=== PATIENT | male | born 1950 | race Caucasian/White ===

== ENCOUNTER → 2018-02-06 09:35 | Outpatient (CLI) | payer MEDICARE, OTHER, SELFPAY ==
[2018-02-06 12:27] LABS: AST(SGOT) 17 U/L (15-37); Alanine Aminotransfer ALT/SGPT 27 U/L (16-61); Albumin, Serum 3.9 g/dL (3.2-5.0); Alkaline Phosphatase 72 U/L (45-117); Bilirubin, Direct 0.13 mg/dL (0.00-0.30); Cholesterol 253 mg/dL (200); Globulin 3.9 g/dL (2.2-4.2); High Density Lipoprotein 49 mg/dL; Protein, Total 7.8 g/dL (6.4-8.2); Triglycerides 138 mg/dL; Very Low Density Lipoprotein 28 mg/dL (5-40)
== END ==
DX: E78.5 Hyperlipidemia, unspecified (principal)
CPT/HCPCS: 36415; 80061; 80076

== ENCOUNTER → 2018-04-14 16:21 | Outpatient (CLI) | payer MEDICARE, OTHER, SELFPAY ==
--- NOTE | 2018-04-14 | COLBX_PTH ---
PATIENT: DARRIUS العراقي LOC: [facility] U#:[id number] AGE/SX: 74/M ROOM: RE04/14/[address]: Dr. Tano Roca MD : 1950 BED: DIS: SPEC #: [id number] RECD: 04/14/18 11:14 STATUS: KRISTIAN FERRARO #: [id number] BASSEM: 04/14/18 00:[address]: Tano Roca DEPT: SURGICAL PATHOLOGY RECD BY: Ismael Parker ENTERED: 04/20/18 11:14 SP TYPE: COLON BX OTHR DR: MD Brandon Jameson [facility] Tissues: Transverse colon Procedures: Surgery Specimen Level IV HEADER OPERATION: Colonoscopy with biopsy PRE-OP DIAGNOSIS: High risk screening/polyp TISSUE SUBMITTED: Transverse colon polyp biopsy, rule out adenoma MICROSCOPIC DIAGNOSIS Transverse colon polyp, biopsy: Fragments of tubular adenoma. AM:dipti 04/22/18 MICROSCOPIC DESCRIPTION Slides are reviewed. GROSS DESCRIPTION Received in fixative is one container labeled with the patient's name and designated transverse colon biopsy. The specimen consists of multiple irregular fragments of light vega soft tissue that in aggregate measure 0.6 x 0.2 x 0.1 cm. The specimen is totally submitted in one cassette. / SJ:rg 04/17/18 TC:5 CPT: 26602
== END ==
PROVIDERS: PCP Family Medicine; Visit Provider Internal Medicine Gastroenterology
DX: Z12.11 Encounter for screening for malignant neoplasm of colon (principal); K63.5 Polyp of colon
CPT/HCPCS: 88305

== ENCOUNTER → 2018-09-06 09:46 | Outpatient (CLI) | payer MEDICARE, OTHER, SELFPAY ==
--- NOTE | 2018-09-06 09:57 | RAD_ITS ---
STUDY: X-RAY - RIGHT KNEE REASON FOR EXAM: Male, 67 years old. Chronic joint pain, no known injury TECHNIQUE: 4 view(s) of the knee. COMPARISON: None. FINDINGS: Normal visualized distal femur. Normal visualized proximal tibia and fibula. Normal proximal tibiofibular articulation. There is mild joint space narrowing of the medial knee compartment. Normal lateral femorotibial compartment. Normal patellofemoral articulation. The soft tissue structures are unremarkable. RAD/Knee 4 or More Views IMPRESSION: Mild joint space narrowing of the medial knee compartment. Electronically Signed: Blake López MD at 16:56 EDT , Service support ,
--- NOTE | 2018-09-06 09:57 | RAD_ITS ---
STUDY: X-RAY - PELVIS AND BILATERAL HIPS REASON FOR EXAM: Male, 67 years old. Chronic joint pain, no known injury TECHNIQUE: Radiological exam, hip, bilateral, with pelvis when performed; minimum of 5 views COMPARISON: 02/24/2017 FINDINGS: There is a non-specific bowel gas pattern. 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 Normal bilateral iliac wings, sacroiliac joints and visualized sacrum. Normal bilateral superior and inferior pubic rami. Normal pubic symphysis. Normal bilateral ischial tuberosities. Normal visualized right femoral head. Normal right acetabulum. Normal right hip joint. Normal visualized left femoral head. Normal left acetabulum. Normal left hip joint. RAD/Hips B/L min 2 views w/ Pelvis IMPRESSION: Normal x-ray examination of the pelvis and bilateral hips. Electronically Signed: Blake López MD at 22:12 EDT , Service support ,
--- NOTE | 2018-09-06 09:57 | RAD_ITS ---
STUDY: X-RAY - LEFT KNEE REASON FOR EXAM: Male, 67 years old. Chronic pain, no known injury TECHNIQUE: view(s) of the knee. COMPARISON: Prior study of 03/11/2017 FINDINGS: Normal visualized distal femur. Normal visualized proximal tibia and fibula. Normal proximal tibiofibular articulation. There is severe joint space narrowing with reactive sclerosis of the medial tibial plateau. Normal lateral femorotibial compartment. Normal patellofemoral articulation. There are number of small calcifications of the posterior medial knee joint space measuring up to 8 mm in diameter consistent with joint mice. RAD/Knee 4 or More Views IMPRESSION: Degenerative changes of the medial knee compartment. Chondrocalcinosis. Findings are similar to the previous study. Electronically Signed: Blake López MD at 16:51 EDT , Service support ,
--- NOTE | 2018-09-06 09:57 | RAD_ITS ---
STUDY: X-RAY - LUMBAR SPINE REASON FOR EXAM: Male, 67 years old. Chronic pain, no known injury TECHNIQUE: 5 view(s) of the lumbar spine were obtained. COMPARISON: Previous study of 02/24/2017 FINDINGS: Normal lumbar lordosis. There is no substantial scoliosis. There is a normal alignment of the vertebrae. There is mild endplate spondylosis at L4 and L5. There is narrowing of the L3-4 and L4-5 disc spaces. There is no evidence of fracture, spondylolysis, or spondylolisthesis. There are calcified plaques of the abdominal aorta. RAD/L/S Spine Min 4 Views IMPRESSION: Degenerative changes of the spine, as detailed above. Findings are similar to the previous study. Electronically Signed: Blake López MD at 22:11 EDT , Service support ,
[2018-09-06 12:19] LABS: ALB/GLOB Ratio 1.1 RATIO (0.9-2.4); AST(SGOT) 25 U/L (15-37); Alanine Aminotransfer ALT/SGPT 32 U/L (16-61); Alkaline Phosphatase 85 U/L (45-117); Anion Gap 7 (5-15); BUN 17 mg/dL (7-18); BUN/Creat Ratio 17.1 RATIO (10-20); Calcium,Total 9.1 mg/dL (8.5-10.1); Chloride 104 mmol/L (98-107); Cholesterol 250 mg/dL (200); Creatinine, Serum 0.99 mg/dL (0.70-1.30); EST Glomerular Filtration Rate 79 mL/min (>60); Est Glom Filt Rate - Afr Amer 96 mL/min (>60); Globulin 3.7 g/dL (2.2-4.2); Glucose 82 mg/dL (74-106); High Density Lipoprotein 48 mg/dL; Potassium 4.5 mmol/L (3.5-5.1); Protein, Total 7.7 g/dL (6.4-8.2); Sodium Level 141 mmol/L (136-145); Triglycerides 168 mg/dL; Very Low Density Lipoprotein 34 mg/dL (5-40)
== END ==
PROVIDERS: Family Provider Family Medicine; PCP Family Medicine; Referring Provider Family Medicine; Visit Provider Family Medicine
DX: M25.50 Pain in unspecified joint (principal); E78.5 Hyperlipidemia, unspecified
CPT/HCPCS: 36415; 72110; 73521; 73564; 80053; 80061

== ENCOUNTER → 2018-12-20 10:01 | Outpatient (CLI) | payer MEDICARE, OTHER, SELFPAY ==
[2018-12-20 12:23] LABS: PSA,Total - Annual Screen 1.29 ng/mL (0.00-4.00)
== END ==
PROVIDERS: Family Provider Family Medicine; PCP Family Medicine; Referring Provider Radiology Radiation Oncology; Visit Provider Radiology Radiation Oncology
DX: Z12.5 Encounter for screening for malignant neoplasm of prostate (principal); Z85.46 Personal history of malignant neoplasm of prostate
CPT/HCPCS: 36415; 84153; G0103

== ENCOUNTER → 2019-01-01 08:22 | Outpatient (CLI) | payer MEDICARE, OTHER, SELFPAY ==
[2019-01-01 10:38] LABS: AST(SGOT) 23 U/L (15-37); Alanine Aminotransfer ALT/SGPT 27 U/L (16-61); Albumin, Serum 3.8 g/dL (3.2-5.0); Alkaline Phosphatase 74 U/L (45-117); Anion Gap 9 (5-15); BUN 17 mg/dL (7-18); BUN/Creat Ratio 16.7 RATIO (10-20); Calcium,Total 8.9 mg/dL (8.5-10.1); Chloride 108 mmol/L (98-107); Cholesterol 234 mg/dL (200); Creatinine, Serum 1.02 mg/dL (0.70-1.30); EST Glomerular Filtration Rate 77 mL/min (>60); Est Glom Filt Rate - Afr Amer 93 mL/min (>60); Globulin 3.8 g/dL (2.2-4.2); Glucose 89 mg/dL (74-106); High Density Lipoprotein 47 mg/dL; Potassium 4.2 mmol/L (3.5-5.1); Protein, Total 7.6 g/dL (6.4-8.2); Sodium Level 141 mmol/L (136-145); Triglycerides 150 mg/dL; Very Low Density Lipoprotein 30 mg/dL (5-40)
== END ==
PROVIDERS: Family Provider Family Medicine; PCP Family Medicine; Visit Provider Family Medicine
DX: E78.5 Hyperlipidemia, unspecified (principal)
CPT/HCPCS: 36415; 80053; 80061

== ENCOUNTER → 2019-04-30 | Outpatient (CLI) | payer MEDICARE, OTHER, SELFPAY ==
[2019-04-30 10:45] LABS: Cholesterol 222 mg/dL (200); High Density Lipoprotein 51 mg/dL; Triglycerides 129 mg/dL; Very Low Density Lipoprotein 26 mg/dL (5-40)
[2019-05-02 09:01] LABS: AST(SGOT) 27 U/L (15-37); Alanine Aminotransfer ALT/SGPT 29 U/L (16-61); Alkaline Phosphatase 77 U/L (45-117); Bilirubin, Direct 0.13 mg/dL (0.00-0.30); CPK Total, Creatine Kinase 268 U/L (39-308); Ferritin 85 ng/mL (26-388); Globulin 3.4 g/dL (2.2-4.2); Magnesium 2.2 mg/dL (1.6-2.6); Protein, Total 7.4 g/dL (6.4-8.2)
== END | disposition home or self-care (01) ==
LOC: MFPLAB 08:04
PROVIDERS: Family Provider Family Medicine; PCP Family Medicine; Referring Provider Family Medicine; Visit Provider Family Medicine
DX: E78.5 Hyperlipidemia, unspecified (principal); R25.2 Cramp and spasm
CPT/HCPCS: 36415; 80061; 80076; 82550; 82728; 83735

== ENCOUNTER → 2019-10-26 08:09 | Outpatient (CLI) | payer MEDICARE, OTHER, SELFPAY ==
[2019-10-26 10:48] LABS: Cholesterol 236 mg/dL (200); High Density Lipoprotein 46 mg/dL; Triglycerides 184 mg/dL; Very Low Density Lipoprotein 37 mg/dL (5-40)
== END ==
PROVIDERS: Family Provider Family Medicine; PCP Family Medicine; Referring Provider Family Medicine; Visit Provider Family Medicine
DX: E78.5 Hyperlipidemia, unspecified (principal)
CPT/HCPCS: 36415; 80061

== ENCOUNTER → 2019-12-31 07:50 | Outpatient (CLI) | payer MEDICARE, OTHER, SELFPAY ==
[2019-12-31 10:51] LABS: PSA,Total- Diagnostic 1.03 ng/mL (0.0-4.0)
== END ==
PROVIDERS: PCP Family Medicine; Referring Provider Radiology Radiation Oncology; Visit Provider Radiology Radiation Oncology
DX: C61 Malignant neoplasm of prostate (principal)
CPT/HCPCS: 36415; 84153

== ENCOUNTER → 2020-03-04 08:05 | Outpatient (CLI) | payer MEDICARE, OTHER, SELFPAY ==
[2020-03-04 10:20] LABS: ALB/GLOB Ratio 1.2 RATIO (0.9-2.4); AST(SGOT) 22 U/L (15-37); Alanine Aminotransfer ALT/SGPT 27 U/L (16-61); Albumin, Serum 3.8 g/dL (3.2-5.0); Alkaline Phosphatase 77 U/L (45-117); Anion Gap 6 (5-15); BUN 20 mg/dL (7-18); BUN/Creat Ratio 19.2 RATIO (10-20); Calcium,Total 9.1 mg/dL (8.5-10.1); Chloride 106 mmol/L (98-107); Cholesterol 206 mg/dL (200); Creatinine, Serum 1.04 mg/dL (0.70-1.30); EST Glomerular Filtration Rate 75 mL/min (>60); Est Glom Filt Rate - Afr Amer 91 mL/min (>60); Globulin 3.3 g/dL (2.2-4.2); Glucose 88 mg/dL (74-106); High Density Lipoprotein 48 mg/dL; PSA,Total - Annual Screen 0.88 ng/mL (0.00-4.00); Potassium 4.2 mmol/L (3.5-5.1); Protein, Total 7.1 g/dL (6.4-8.2); Sodium Level 140 mmol/L (136-145); Triglycerides 108 mg/dL; Very Low Density Lipoprotein 22 mg/dL (5-40)
== END ==
PROVIDERS: PCP Family Medicine; Referring Provider Family Medicine; Visit Provider Family Medicine
DX: E78.5 Hyperlipidemia, unspecified (principal); Z12.5 Encounter for screening for malignant neoplasm of prostate; R25.2 Cramp and spasm
CPT/HCPCS: 36415; 80053; 80061; 84153; G0103

== ENCOUNTER → 2020-09-01 08:50 | Outpatient (CLI) | payer MEDICARE, OTHER, SELFPAY ==
[2020-09-01 10:02] LABS: Cholesterol 191 mg/dL (200); High Density Lipoprotein 69 mg/dL; Triglycerides 96 mg/dL; Very Low Density Lipoprotein 19 mg/dL (5-40)
== END ==
PROVIDERS: PCP Family Medicine; Visit Provider Family Medicine
DX: E78.5 Hyperlipidemia, unspecified (principal)
CPT/HCPCS: 36415; 80061

== ENCOUNTER → 2021-01-08 10:43 | Outpatient (CLI) | payer MEDICARE, OTHER, SELFPAY ==
[2021-01-08 12:34] LABS: PSA,Total- Diagnostic 0.76 ng/mL (0.0-4.0)
== END ==
LOC: LAB 10:46 → MTLAB 10:46
PROVIDERS: PCP Family Medicine; Referring Provider Radiology Radiation Oncology; Visit Provider Radiology Radiation Oncology
DX: Z85.46 Personal history of malignant neoplasm of prostate (principal)
CPT/HCPCS: 36415; 84153

== ENCOUNTER → 2021-01-22 09:58 | Outpatient (CLI) | payer MEDICARE, OTHER, SELFPAY ==
--- NOTE | 2021-01-22 09:59 | CDU_ITS ---
Reason For Study: carotid stenosis Rt. Velocities/BP Lt. Velocities/BP Prox CCA 104.7/14.7 cm/sec. Prox CCA 75.1/16.8 cm/sec. Mid CCA 86.5/13.4 cm/sec. Mid CCA 67.3/13.5 cm/sec. Dist CCA 76.0/13.4 cm/sec. Dist CCA 70.6/13.5 cm/sec. Prox ICA 48.7/12.4 cm/sec. Prox ICA 69.5/20.1 cm/sec. Mid ICA 79.5/24.5 cm/sec. Mid ICA 77.2/24.5 cm/sec. Dist ICA 66.3/17.9 cm/sec. Dist ICA 72.9/25.6 cm/sec. Rt. ICA/CCA = .9. Lt. ICA/CCA = 1.1. Prox ECA 99.5/13.4 cm/sec. Prox ECA 101.4/14.6 cm/sec. Rt. Vert. 50.9/14.6 cm/sec. Lt. Vert. 44.3/10.2 cm/sec. Right Extracranial There is homogeneous, smooth atherosclerotic plaque noted in the right common carotid artery. There is heterogeneous, irregular atherosclerotic plaque noted in the right internal carotid artery. There is intimal thickening but no significant atherosclerotic plaque noted in the right external carotid artery. Antegrade flow is noted in the right vertebral artery. Left Extracranial There is homogeneous, smooth atherosclerotic plaque noted in the left common carotid artery. There is heterogeneous, irregular atherosclerotic plaque noted in the left internal carotid artery. There is heterogeneous, irregular atherosclerotic plaque noted in the left external carotid artery. Antegrade flow is noted in the left vertebral artery. Procedure Carotid Duplex 14062. This is a Carotid Duplex examination using B-mode, color flow and specral Doppler. The exam was diagnostic. Exam performed in department. Interpretation Summary Mild (<50%) stenosis right extracranial internal carotid. Mild (<50%) stenosis left extracranial internal carotid. Flow within the vertebral arteries is antegrade bilaterally. Ordering Physician: Lawrence Wilson Performed By: George Bravo RVT
== END ==
PROVIDERS: PCP Family Medicine; Referring Provider Family Medicine; Visit Provider Family Medicine
DX: I65.23 Occlusion and stenosis of bilateral carotid arteries (principal)
CPT/HCPCS: 93880

== ENCOUNTER → 2021-03-09 08:14 | Outpatient (CLI) | payer MEDICARE, OTHER, SELFPAY | PROVIDERS: PCP Family Medicine; Visit Provider Family Medicine | DX: Z00.00 Encounter for general adult medical examination without abnormal findings (principal) ==

== ENCOUNTER → 2021-03-10 | Outpatient (CLI) | payer MEDICARE, OTHER, SELFPAY | END | disposition home or self-care (01) | LOC: LABSPEC 10:34 | PROVIDERS: PCP Family Medicine; Referring Provider Family Medicine; Visit Provider Family Medicine | DX: Z00.00 Encounter for general adult medical examination without abnormal findings (principal) ==

== ENCOUNTER → 2021-03-11 09:03 | Outpatient (CLI) | payer MEDICARE, OTHER, SELFPAY ==
[2021-03-11 10:26] LABS: Absolute Lymphocyte Count 1.06 X10^3/uL (0.83-4.51); Absolute Neutrophil Count 1.9 X10^3/uL (2.0-7.7); Basophil# 0.03 X10^3/uL; Basophil% 0.8 % (0-1); Eosinophil# 0.12 X10^3/uL; Eosinophils% 3.3 % (0-5); Hematocrit 41.5 % (40-54); Hemoglobin 13.1 g/dL (13.0-16.5); Lymphocyte # 1.06 X10^3/ul (0.83-4.51); Lymphocyte % 29.1 % (19-41); Mean Corp Hgb Conc 31.6 g/dL (32-36); Mean Corpuscular Hgb 29.1 pg (27.0-32.0); Mean Corpuscular Volume 92.2 fL (80-94); Mean Platelet Vol. 10.7 fl (6.2-12.0); Monocyte% 13.7 % (0-10); NRBC Flagged by Analyzer 0 % (0-5); Neutrophil # 1.92 X10^3/uL (2.7-7.7); Neutrophil % 52.8 % (47-70); Platelet Count 220 K/mm3 (150-450); RBC Distribution Width CV 13.4 % (11.6-14.6); RBC Distribution Width SD 46.4 fl (35.1-43.9); White Blood Count 3.6 K/mm3 (4.4-11.0)
[2021-03-11 11:17] LABS: ALB/GLOB Ratio 1.1 RATIO (0.9-2.4); AST(SGOT) 27 U/L (15-37); Alanine Aminotransfer ALT/SGPT 29 U/L (16-61); Albumin, Serum 3.9 g/dL (3.2-5.0); Alkaline Phosphatase 85 U/L (45-117); Anion Gap 5 (5-15); BUN 30 mg/dL (7-18); BUN/Creat Ratio 28.3 RATIO (10-20); Calcium,Total 8.7 mg/dL (8.5-10.1); Chloride 105 mmol/L (98-107); Creatinine, Serum 1.06 mg/dL (0.70-1.30); EST Glomerular Filtration Rate 73 mL/min (>60); Est Glom Filt Rate - Afr Amer 89 mL/min (>60); Globulin 3.4 g/dL (2.2-4.2); Glucose 89 mg/dL (74-106); Magnesium 2.3 mg/dL (1.6-2.6); Potassium 4.3 mmol/L (3.5-5.1); Protein, Total 7.3 g/dL (6.4-8.2); Sodium Level 138 mmol/L (136-145); T4 Free Direct 1.01 ng/dL (0.76-1.46); Thyroid Stim Hormone (TSH) 1.87 uIU/mL (0.358-3.74)
== END ==
PROVIDERS: PCP Family Medicine; Referring Provider Family Medicine; Visit Provider Family Medicine
DX: R00.1 Bradycardia, unspecified (principal)
CPT/HCPCS: 36415; 80053; 83735; 84439; 84443; 85025

== ENCOUNTER → 2021-05-14 10:31 | Outpatient (CLI) | payer MEDICARE, OTHER, SELFPAY ==
[2021-05-07 13:50] VITALS: BMI 24.6
== END ==
PROVIDERS: PCP Family Medicine; Referring Provider Internal Medicine Cardiovascular Disease; Visit Provider Internal Medicine Cardiovascular Disease
DX: R06.02 Shortness of breath (principal); R53.83 Other fatigue; R00.1 Bradycardia, unspecified; E78.2 Mixed hyperlipidemia
CPT/HCPCS: 93225; 93226

== ENCOUNTER → 2021-05-26 09:52 | Outpatient (CLI) | payer MEDICARE, OTHER, SELFPAY ==
[2021-05-07 13:50] VITALS: BMI 24.6
--- NOTE | 2021-05-26 09:53 | ECHOD_ITS ---
Reason For Study: SOB Procedure This was a 2D Doppler, Color Flow transthoracic echocardiogram. The exam was of adequate technical quality. Exam performed in department. Left Ventricle Normal LV size. Left ventricular systolic function is normal. The estimated ejection fraction is 65 %. No evidence for diastolic dysfunction. No regional wall motion abnormalities noted. Right Ventricle Normal RV size. Normal systolic function. Atria Normal left atrium. Normal right atrium. No doppler evidence for ASD. Mitral Valve There is no mitral annular calcification. Normal mitral valve. Trivial mitral valve insufficiency. Tricuspid Valve Normal tricuspid valve. Trivial tricuspid valve insufficiency. Right ventricular systolic pressure estimated to be 24 mmHg. Aortic Valve Trisinus/trileaflet aortic valve. Mild diffuse aortic valve thickening. Pulmonic Valve The pulmonic valve is not well visualized. Great Vessels Normal sized aortic root. Pericardium/Pleural No pericardial effusion. MMode/2D Measurements & Calculations LVIDd: 4.4 cm IVSd: 0.91 cm Ao root diam: 3.8 cm LVIDs: 2.3 cm LVPWd: 0.96 cm RVDd: 3.8 cm FS: 47.1 % LAV(MOD-bp): 52.5 ml LVAd ap4: 27.2 cm2 LVAd ap2: 29.0 cm2 LAV(MOD-bp) Indexed: 24.1 ml/m2 LVLd ap4: 8.0 cm LVLd ap2: 8.6 cm LAV(MOD-sp2): 55.1 ml EDV(MOD-sp4): 76.8 ml EDV(MOD-sp2): 82.0 ml LAV(MOD-sp4): 49.6 ml EDV(sp4-el): 78.2 ml EDV(sp2-el): 82.5 ml LVAs ap4: 15.5 cm2 LVAs ap2: 14.8 cm2 LVLs ap4: 7.5 cm LVLs ap2: 7.7 cm ESV(MOD-sp4): 26.4 ml ESV(MOD-sp2): 24.3 ml ESV(sp4-el): 27.2 ml ESV(sp2-el): 24.1 ml EF(MOD-sp4): 65.6 % EF(MOD-sp2): 70.4 % EF(sp4-el): 65.2 % SV(MOD-sp4): 50.4 ml SV(MOD-sp2): 57.7 ml SV(sp4-el): 50.9 ml LA dimension(2D): 3.1 cm LA A4 area: 18.5 cm2 RA A4 area: 13.9 cm2 Doppler Measurements & Calculations MV E max lj: 58.2 cm/sec Lat Peak E' Lj: 8.4 cm/sec Med Peak E' Lj: 6.0 cm/sec MV A max lj: 58.6 cm/sec E/E' lat: 6.9 E/E' med: 9.7 MV E/A: 0.99 Ao V2 max: 164.4 cm/sec LV V1 max: 135.4 cm/sec PA V2 max: 112.5 cm/sec Ao max P.8 mmHg LV V1 max P.3 mmHg TR max lj: 226.4 cm/sec TR max P.6 mmHg ECHO/Echo Complete Interpretation Summary Left ventricular systolic function is normal. The estimated ejection fraction is 65 %. Trivial mitral valve insufficiency. Trivial tricuspid valve insufficiency. Mild diffuse aortic valve thickening. No evidence for diastolic dysfunction. Ordering Physician: James Lama Referring Physician: Lawrence Wilson Performed By: Yadira Moser RDCS
--- NOTE | 2021-05-26 13:32 | STRESSREP_ITS ---
Stress Test Report Date: 05-26-2021 Procedure: Exercise tolerance test Indications: Sinus bradycardia; chest pain; dyspnea on exertion; fatigue Consent: Per the patient Procedure: The patient exercised on a Bang protocol for 9 minutes completing stage III achieving a peak heart rate of 125 bpm (83% predicted maximal heart rate) with a peak blood pressure 178/80 mmHg and a peak MET capacity of approximately 10 MET's. The baseline ECG demonstrated sinus bradycardia; PACs. The peak exercise ECG demonstrated somatic/motion artifact with no obvious ECG changes. There were occasional PACs pretest and during recovery and an isolated PVC in recovery. The functional capacity was considered good. The patient had no complaint of chest discomfort during exercise or recovery. The examination was discontinued secondary to dyspnea. Impression: 1. Technically inadequate (percent predicted maximal heart rate less than 85%) exercise tolerance test 2. Peak exercise ECG with with somatic/motion artifact with no obvious ECG changes 3. There were occasional PACs pretest and during recovery and an isolated PVC in recovery This note was generated with Met[employer] software. It may contain incorrect words, spelling, and punctuation that were not noted in checking the note before signing.
== END ==
PROVIDERS: PCP Family Medicine; Referring Provider Internal Medicine Cardiovascular Disease; Visit Provider Internal Medicine Cardiovascular Disease
DX: R06.02 Shortness of breath (principal); R53.83 Other fatigue; R00.1 Bradycardia, unspecified; E78.2 Mixed hyperlipidemia
CPT/HCPCS: 93017; 93306

== ENCOUNTER → 2021-07-22 12:00 | Outpatient (CLI) | payer MEDICARE, OTHER, SELFPAY ==
--- NOTE | 2021-07-22 12:03 | RAD_ITS ---
STUDY: X-RAY CHEST REASON FOR EXAM: Male, 70 years old. CP TECHNIQUE: PA and lateral chest radiographs COMPARISON: 02/20/2014 FINDINGS: The lungs are clear and expanded. There is no demonstrated pleural abnormality. Normal size heart. Normal mediastinum and kris. Normal visualized pulmonary arteries. There is atherosclerotic calcification of the aortic arch with tortuosity. Normal visualized thoracic spine. Normal visualized ribs, clavicles, and shoulders. There is no demonstrated abnormality of the visualized soft tissue structures of the upper abdomen. RAD/Chest PA and Lateral IMPRESSION: No acute abnormal cardiopulmonary finding. Electronically Signed: James Hunt MD at 6:45 EDT Tel , Service support ,
[2021-07-22 12:36] LABS: Absolute Lymphocyte Count 1.35 X10^3/uL (0.83-4.51); Absolute Neutrophil Count 2.8 X10^3/uL (2.0-7.7); Basophil# 0.05 X10^3/uL; Eosinophils% 2.1 % (0-5); Hematocrit 39.1 % (40-54); Hemoglobin 12.9 g/dL (13.0-16.5); Lymphocyte # 1.35 X10^3/ul (0.83-4.51); Lymphocyte % 27.8 % (19-41); Mean Corpuscular Hgb 30.1 pg (27.0-32.0); Mean Corpuscular Volume 91.1 fL (80-94); Mean Platelet Vol. 10.6 fl (6.2-12.0); Monocyte# 0.59 X10^3/uL; Monocyte% 12.2 % (0-10); NRBC Flagged by Analyzer 0 % (0-5); Neutrophil # 2.75 X10^3/uL (2.7-7.7); Neutrophil % 56.7 % (47-70); Platelet Count 201 K/mm3 (150-450); RBC Distribution Width CV 13.5 % (11.6-14.6); RBC Distribution Width SD 45.2 fl (35.1-43.9); Red Blood Count 4.29 M/mm3 (4.6-6.2); White Blood Count 4.9 K/mm3 (4.4-11.0)
[2021-07-22 12:53] LABS: International Normalized Ratio 1.1; Prothrombin Time (Protime)PT. 13.8 SECONDS (11.7-14.9)
[2021-07-22 13:13] LABS: Anion Gap 4 (5-15); BUN 29 mg/dL (7-18); BUN/Creat Ratio 27.6 RATIO (10-20); Chloride 107 mmol/L (98-107); Creatinine, Serum 1.05 mg/dL (0.70-1.30); EST Glomerular Filtration Rate 74 mL/min (>60); Est Glom Filt Rate - Afr Amer 89 mL/min (>60); Glucose 94 mg/dL (74-106); Potassium 4.4 mmol/L (3.5-5.1); Sodium Level 137 mmol/L (136-145)
== END ==
PROVIDERS: Nurse Practitioner Gerontology; PCP Family Medicine; Referring Provider Internal Medicine Cardiovascular Disease; Visit Provider Internal Medicine Cardiovascular Disease
DX: R07.9 Chest pain, unspecified (principal); R06.02 Shortness of breath; R53.83 Other fatigue; R00.1 Bradycardia, unspecified
CPT/HCPCS: 36415; 71046; 80048; 85025; 85610; 85730

== ENCOUNTER 2021-08-11 10:24 | Observation (INO) | payer MEDICARE, OTHER, SELFPAY ==
[2021-06-22 08:20] VITALS: BMI 24.9
[2021-08-10 08:45] VITALS: BMI 25.0
--- NOTE | 2021-08-10 17:50 | HP.PCM_ITS ---
History and Physical Date of Admission: 08/11/21 [facility] [address] [place] [address] [phone] OFFICE VISITDate of Service: 07/22/21 MR#:[id number]:[id number]: DARRIUS العراقيRep #:[id number] Provider: HARVEY Warren/Sex: 70/M Locat ion:BMS.WHGStatus:Signed HPI HPI History of Present Illness Surgical H&P: Yes Details: This is a 70-year-old white male who presents today for a cardiovascular office visit. He is scheduled for a cardiac catheterization on 08/11/2021. He has concerns of sinus bradycardia with associated shortness of breath/dyspnea on exertion and fatigue and intermittent sharp, fleeting, stabbing, chest discomfort. He states that he has been a runner in the past. He also participated in sports when he was in the . He notes he has had a slow heart rate in the past. His main concern now over the last few months is that when he increases his activity he feels somewhat more short of breath and dyspneic that he feels he should be as well as he becomes more tired and fatigued. He does state that he notices a fast heart rate at times, not very often. It only lasts for about 1 minute. He does state he occasionally has chest pain- sharp, stabbing pain and heaviness with activity. He states he experiences this about 1-2 times a week. The pain does radiate down into his left arm. No nausea, vomiting, profuse sweating noted. He states he stops what he is doing and gives it time to pass. He states he does continue to have SOB with activity-during exercise-elliptical/lifting weights/activities in the barn. He does not have Orthopnea, and PND. He denies any bleeding issues; no blood in urine, stool or nosebleeds. He does continue to have a decrease in his stamina. He denies myalgias, or claudication. He denies edema, or sudden weight gain. He does state he has dizziness when moving from a sitting to standing position. He denies lightheadedness, syncopal or near syncopal episodes, and headaches. He is due to see his PCP in August-he monitors his cholesterol. Intake Vital Signs 07/22/21 08:55 Height 6 ft 3 in Weight: 200 lb BMI 25.0 BP 128/70 H Blood Pressure Location Lt brachial Position Sitting Respiration 18 Pulse 51 L Pulse Oximetry (%) 97 Oxygen Delivery Method room air Intake Visit Reasons: UPDATE H&P (CATH 08/11) Allergies No Known Allergies Allergy (Verified 07/22/21 11:19) Medications aspirin 81 mg tablet,delayed release 81 mg PO DAILY 04/28/21 [History Confirmed 07/22/21] coenzyme Q10 100 mg capsule 100 mg PO DAILY 04/28/21 [History Confirmed 07/22/21] ezetimibe 10 mg tablet 10 mg PO DAILY 04/28/21 [History Confirmed 07/22/21] flaxseed oil 1,000 mg capsule 1,000 mg PO DAILY 04/28/21 [History Confirmed 07/22/21] meloxicam 15 mg tablet 15 mg PO DAILY 04/28/21 [History Confirmed 07/22/21] multivitamin with minerals-folic acid 0.4 mg tablet tab PO 04/28/21 [History Confirmed 07/22/21] tadalafil 5 mg tablet 5 mg PO DAILY 04/28/21 [History Confirmed 07/22/21] tamsulosin 0.4 mg capsule 0.4 mg PO QHS 04/28/21 [History Confirmed 07/22/21] clopidogrel 75 mg tablet 75 mg PO DAILY #7 tab 07/22/21 [Rx Confirmed 07/22/21] [facility] Medical History Bilateral carotid artery disease Fatigue History of prostate cancer Mixed hyperlipidemia Shortness of breath Sinus bradycardia Surgical History History of appendectomy History of left inguinal hernia repair History of tonsillectomy Family History Mother Cardiomegaly Social History Smoking Status: Never smoker alcohol intake: current details: occasional substance use type: does not use caffeine: Yes Type: tea ROS Const Const: Positive for fatigue; Negative for weakness, fever(s), headache(s), chills, frequent falls, weight gain or weight loss Eyes Eyes: Negative for blind spots, loss of peripheral vision, transient loss of vision, blurry vision, change in vision, double vision, floaters or tunnel vision ENT ENT: Positive for dizziness (with positional changes); Negative for headache(s), Nosebleed/epistaxis, balance problems or neck pain Cardio Chest Pain: Yes Frequency: weekly Character: sharp (Stabbing, heaviness) Onset: exercise Location: other (radiates down his left arm) Palpitations: No Edema: None Muscle aches with walking: None Resp Respiratory: Positive for SOB with activity; Negative for SOB at rest or SOB orthopnea\SOB lying down GI GI: Negative nausea, vomiting, heartburn, bloating, vomiting blood/hematemesis, bright, red blood in stools or black,tarry stools Musc Musc: Negative for muscle aches/ myalgia, muscle weakness, joint pain or balance problems Neuro Neuro: Positive for dizziness (with positional changes); Negative for lightheadedness, near syncope, syncope, orthostatic symptoms, frequent falls, headache(s), weakness, blurry vision or double vision Justin Hematologic/Lymphatic: Negative for easy bleeding or easy bruising Endo Endo: Positive for fatigue Cardiology Exam Const Appearance: cooperative and no acute distress Orientation: alert and oriented x3 Head Head: normal to inspection Ears: hearing grossly normal bilaterally Nose: external nose normal Face and Sinus: face symmetric Eyes General: appearance normal, both eyes and all related structures Eyelids: eyelids normal Conjunctivae: conjunctivae normal Pupils: PERRL and pupil size EOM: EOM intact bilaterally Neck Neck: normal visual inspection Carotids: Negative bruit Chest Chest inspection: normal inspection of the chest and normal respiratory effort Auscultation: Bilateral: Clear to Auscultation Cardio Palpation: normal PMI Rate: bradycardic Rhythm: regular rhythm Heart sounds: S1 normal and S2 normal; Negative rub, gallop or murmur GI GI: normal to inspection and soft; Negative no hepatosplenomegaly Neuro General: patient alert, patient oriented x3 and CN's II-XI intact bilaterally Skin Skin: no rashes or lesions noted Extremities Pulses: Normal: Right Posterior Tibial Pulse, Left Posterior Tibial Pulse, Right Radial Pulse and Left Radial Pulse Lower Extremity Edema: None: Bilateral Psych Psychological: normal affect Assessment and Plan Assessment and Plan (1) Chest pain: Status: Acute Plan: Patient continues to have chest pain and heaviness with exertion. His stress test in 05/2021 was negative for ischemia. After discussing the case with Dr. Lama, patient will have a cardiac catheterization on 08/11/2021 to evaluate his coronary arteries. (2) Shortness of breath: Status: Acute Plan: Patient continues to have shortness of breath with activity. His echocardiogram demonstrated normal left ventricle, an EF of 65%, and mild diffuse aortic thickening. Discussed with Dr. Lama, we will evaluate this with a cardiac catheterization. (3) Fatigue: Status: Acute Qualifiers: Fatigue type: unspecified Qualified Code(s): R53.83 - Other fatigue Plan: Patient continues to feel fatigued. After discussing this case with Dr. Lama, again we will set patient up for cardiac catheterization on 08/11/2021 to evaluate his coronary arteries. (4) Bilateral carotid artery disease: Status: Acute Plan: Patient had a carotid duplex on 01/22/2021 which demonstrated mild (< 50%) stenosis in left and right extracranial internal carotid. We will continue to monitor this. (5) Sinus bradycardia: Status: Acute Orders: Orders: 12 Lead EKG performed by [facility] Today Plan: Patient has a history of sinus bradycardia. His EKG from today demonstrated si nus bradycardia with a heart rate of 48. We will continue to monitor this. (6) Mixed hyperlipidemia: Status: Acute Plan: Patient has a history of hyperlipidemia. He follows his PCP for this. He will continue his Zetia 10 mg p.o. daily. Plan Details Other Medications: New: clopidogrel For cardiac cath 75 mg PO DAILY 7 tabs 0RF Additional Comments: Patient will obtain a chest xray, lab work after today's office visit. On 08/04/2021 he will start Plavix 75mg p.o. daily. Health Concerns: Patient will follow up in 11 months, or sooner if needed. Thank you for allowing me to participate in the care of your patient. Please don't hesitate to call if any issues arise. This note was generated using a voice recognition system and there may be incorrect words, spelling, or punctuation that were not noted when reviewing the office note prior to saving. Follow Up: Keep as is (PFM) Coding Level of Care Code Off vis,est,level 3 Diagnoses Chest pain R07.9 Shortness of breath R06.02 Fatigue R53.83 Fatigue type: unspecified Bilateral carotid artery disease I77.9 Sinus bradycardia R00.1 Mixed hyperlipidemia E78.2 Coding Level of Care Code Off vis,est,level 3 Diagnoses Chest pain R07.9 Shortness of breath R06.02 Fatigue R53.83 Fatigue type: unspecified Bilateral carotid artery disease I77.9 Sinus bradycardia R00.1 Mixed hyperlipidemia E78.2 Supplemental Info Supplemental Information Echocardiogram from 05/26/2021: Interpretation Summary Left ventricular systolic function is normal. The estimated ejection fraction is 65 %. Trivial mitral valve insufficiency. Trivial tricuspid valve insufficiency. Mild diffuse aortic valve thickening. No evidence for diastolic dysfunction. Stress test from 05/26/2021: Procedure: Exercise tolerance test Indications: Sinus bradycardia; chest pain; dyspnea on exertion; fatigue Consent: Per the patient Procedure: The patient exercised on a Bang protocol for 9 minutes completing stage III a chieving a peak heart rate of 125 bpm (83% predicted maximal heart rate) with a peak blood pressure 178/80 mmHg and a peak MET capacity of approximately 10 MET's. The baseline ECG demonstrated sinus bradycardia; PACs. The peak exercise ECG demonstrated somatic/motion artifact with no obvious ECG changes. There were occasional PACs pretest and during recovery and an isolated PVC in recovery. The functional capacity was considered good. The patient had no complaint of chest discomfort during exercise or recovery. The examination was discontinued secondary to dyspnea. Impression: 1. Technically inadequate (percent predicted maximal heart rate less than 85%) exercise tolerance test 2. Peak exercise ECG with with somatic/motion artifact with no obvious ECG changes 3. There were occasional PACs pretest and during recovery and an isolated PVC in recovery Carotid duplex 01/22/2021: Interpretation Summary Mild (<50%) stenosis right extracranial internal carotid. Mild (<50%) stenosis left extracranial internal carotid. Flow within the vertebral arteries is antegrade bilaterally. Labs: LDL Cholesterol 103 mg/dL (0-130) HDL Cholesterol 69 mg/dL (40-) Triglycerides 96 mg/dL (-199) VLDL Cholesterol 19 mg/dL (5-40) Diagnostics: Electrocardiogram Echocardiogram Stress Test Pulmonary: No Data to Display 07/22/21 1322<Electronically signed by Nessa Melissa COMMERCIAL ENGINEER COMMERCIAL ENGINEER-C>Date Nessa Melissa COMMERCIAL ENGINEER COMMERCIAL ENGINEER-C 07/22/21 1737<Electronically signed by James Lama MD>Cosigner Signature:Date (if applicable)James Lama MD CC: Dr. Lawrence Wilson MD ~ Assessment & Plan Addt'l Comments I have re-examined the patient. There are no clinical changes since date of exam.
[2021-08-11] VITALS (11 sets, daily range): BP systolic 124–152; BP diastolic 73–98; PULSE 45–59; RESP 12–16; TEMP 36–36.6; O2SAT 96–99; BMI 25.0
--- NOTE | 2021-08-11 11:22 | CRPHASE1 ---
Patient Communication PHII Cardiac Rehab Discussed with Patient:: Yes Guide to Cardiac Rehab Given to Patient:: Yes Cardiac Rehab Facility Choice List Given to Patient:: Yes Choice Program [facility] PHII:: Communication Given to CR Electrician Substation Supervisor:: Tuyet Taylor Phase II Cardiac Rehab:: Yes Sessions:: 36 sessions - 3 days/wk, 12 weeks Cardiac Rehabilitation Info Cardiac Rehabilitation Program Information: Cardiac Rehabilitation is important for patients like you who are recovering from a heart problem. Cardiac rehabilitation programs are recognized as integral to the continued care of the patient with coronary heart disease. The cardiac rehabilitation program is designed to optimize a patient's physical, psychological, and social functioning. Health medicare nurse work in cardiac rehabilitation programs and assist you with getting the treatments you need to get stronger and healthier - like exercise, healthy eating habits, and medications. Cardiac rehabilitation has been show to help people with heart problems live longer and have better life enjoyment than people who do not go to cardiac rehabilitation. Please contact the Cardiac Rehabilitation Program at [facility] at in two weeks if you have not heard from them.
--- NOTE | 2021-08-11 11:23 | CRPH1.INSTRU ---
General Education CAD and cardiac anatomy and function:: Patient communicates acknowledgment Explanation of diagnoses and procedures:: Patient communicates acknowledgment Sign/Symptoms of [place]:: Patient communicates acknowledgment Antiplatelet therapy: Patient communicates acknowledgment Smoking Patient Nicotine/Smoking Risk Factors Are:: Never smoked Dyslipidemia Patient Dyslipidemia Risk Factors Are:: Total Cholesterol, Triglycerides, HDL, LDL Recommendations Include:: Lipid profile provided, Reviewed NCEP/ATP guidelines, Therapeutic Lifestyle Change dietary guidelines Dyslipidemia Response Code:: Patient communicates acknowledgment Overweight/Obesity Patient Overweight/Obesity Risk Factors Are:: BMI Normal [24-29 & > 65 years old] Recommendations Include:: Weight loss of 5-10%, Reduced calorie diet, Exercise 5-7 times/week Overweight/Obesity:: Patient communicates acknowledgment Hypertension Patient Hypertension Risk Factors Are:: No documented hx of HTN Diabetes Patient Diabetes Risk Factors Are:: No documented hx of diabetes Metabolic Syndrome Recommendations Include:: Does not meet criteria Sedentary Patient Sedentary Risk Factors Are:: Lack of regular exercise Recommendations Include:: Aerobic exercise 5-7 times/week for 20-30 minutes continuously, Benefits of regular exercise, Discussed home walking program, Monitored Outpatient Cardiac Rehab Sedentary Response Code:: Patient communicates acknowledgment Stress Recommendations Include:: Identification of stressors, and assessment of coping skills, Stress management techniques Stress Response Code:: Patient communicates acknowledgment
--- NOTE | 2021-08-11 11:30 | EKG12_ITS ---
Test Reason : Blood Pressure : / mmHG Vent. Rate : 051 BPM Atrial Rate : 051 BPM P-R Int : 202 ms QRS Dur : 076 ms QT Int : 452 ms P-R-T Axes : 069 057 043 degrees QTc Int : 416 ms Sinus bradycardia with Premature atrial complexes Otherwise normal ECG When compared with ECG of 03-MAY-2013 14:49, Premature atrial complexes are now Present Confirmed by TIRSO WATKINS, JOANNE ([id number]), city editor MEGAN CORCORAN ([id number]) on 08/13/2021 12:43:27 PM Referred By: James Lama Confirmed By:JOANNE CHAHAL MD
--- NOTE | 2021-08-11 11:33 | PCIREPORT_ITS ---
PCI Cardiac Cath Report PCI Report: Procedure performed; 1. Successful percutaneous coronary intervention, of mid LAD 70% eccentric stenosis with BRETT-3 flow pre-procedure. Post procedure following predilatation using 2.5 x 15 mm emerge balloon and placement of drug-eluting stent 3.5 x 22 mm drug-eluting stent/Orsiro With reduction of stenosis from 70% to 0% and post procedure BRETT-3 flow. 2. Placement of TR band to maintain hemostasis of right radial artery arteriotomy site. Preprocedure diagnosis; 70-year-old retired , who had intermittent sharp stabbing chest pain associated with symptoms of shortness of breath This patient had a history of hyperlipidemia, his symptoms has been associated with dyspnea on exertion. Patient recently noted increasing symptoms of dyspnea on exertion or shortness of breath once he increase his activities. He has bilateral carotid artery disease and had a sinus bradycardia Echocardiographic evaluation showed LV function preserved ejection fraction 65%. Based on his clinical presentation he was evaluated by stress test and subsequently due to significant symptoms underwent cardiac catheterization by his primary stitchdowns toe former Dr. Lama. The cardiac catheterization angiographic view were restarted and reviewed and discussed the plan with Dr. Lama Had a significant coronary atherosclerosis involving the mid LAD with eccentric plaque of at least around 70% involving the septal perforators as well small diagonal branch. No obstructive atherosclerosis noted in the left main, left circumflex and the right coronary artery and the low ventriculogram showed LV function is preserved. Consent; Risk and benefit of the procedure explained in detail to the patient elected to proceed informed consent obtained. Interventional equipment; 1. 6 [place] EBU guide catheter 0.014 run-through 180 cm straight guidewire. 0.035 to 60 cm J exchange wire 2.5 x 15 mm emerge balloon 3.5 x 22 mm drug-eluting stent/Orsiro Medication use in the Youth Program Director; Patient was given a total of 6000 units of heparin ACT was around 250 additional 2000 units of heparin was given followed by 2 bolus of Integrilin and Integrilin infusion Creatinine clearance within normal. 300 mg Plavix Procedure in detail; We proceed with a 6 Mal[place]ian 3.5 EBU guide advanced ascending aorta cannulated the left main without difficulty. 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 Conclusion; Successful PCI of the mid LAD as explained Recommendation; #1 to continue DAPT with Plavix and aspirin for 1 year 2. Patient is set up for cardiac rehab phase 1 3. Patient will follow up with his primary stitchdowns toe former Dr. Lama at [facility] for continuation of cardiac care. Tuyet Taylor MD,FAC,[facility]
--- NOTE | 2021-08-11 12:00 | CL.D_ITS ---
Patient Name: DARRIUS العراقي Study Date: 08/11/2021 Performing: James Lama MD Ht: 75 inches 191 cm : 1950 Wt: 200.9 lbs 91 kg Age: 70 Gender: male BSA: 2.2 PROCEDURE(S) PERFORMED [id number]/COR/LV [id number] W OR WO PTCA, SINGLE CORONARY ARTERY CLINICAL PROFILE AND INDICATIONS Indications: Suspected CAD, Cardiac Arrythmia Heart Failure: None Stress/Imaging Date: 05/26/2021 Angina Classification Anginal Classification w/in 2 Weeks: Anginal Equivalent Dyspnea CAD Presentations: Other: chest pain; dyspnea on exertion CONCLUSIONS Elevated Left Ventricular End Diastolic Pressure Normal LV size, wall motion,and systolic function LVEF: by LV gram 65 % RECOMMENDATIONS Risk factor modification Medical therapy Referred for immediate PCI DESCRIPTION OF PROCEDURE The patient arrived to the procedure lab. The risks and benefits of the procedure as well as a full d escription of our services here and current unavailability of surgical backup were fully explained to the patient and/or their significant other prior to the catheterization. The Timeout was completed, verifying the correct patient and procedure. The patient's procedural site was prepped and draped in the usual fashion. Local anesthetic was given subcutaneously to right radial region with Lidocaine 2% . Using a modified Seldinger technique, arterial access was obtained via the right radial artery, a 6 Fr sheath was inserted. Right Coronary Artery selective angiography was then performed in multiple v iews using a 5 Fr. 4.0 Gilbert catheter. Left Coronary Artery selective angiography was performed in mu ltiple views using a 5 Fr. 4.0 Gilbert catheter. Left Ventriculography was performed in RUIZ projection using a 5 Fr. Pigtail catheter. LV to AO pullback pressures were then recorded.The arterial sheath was pulled and a TR Band was applied for hemostasis w/ 14ml air CORONARY ANGIOGRAPHY DOMINANCE: Right Dominant LEFT HEART ASSESSMENT Left Ventricular Ejection Fraction: by LV Gram 65 % Normal LV wall motion Elevated Left Ventricular End Diastolic Pressure LVEDP: 25 mmHg LEFT MAIN: Angiographically normal LEFT ANTERIOR DESCENDING ARTERY: MID LAD: somewhat eccentric: hazy: 85 % Stenosis, s/p DX2: 25 % Stenosis CIRCUMFLEX ARTERY: Mild luminal irregularities RIGHT CORONARY ARTERY: Mild luminal irregularities AORTIC ROOT: Angiographically normal COMPLICATIONS No Complications PROCEDURE MEDICATIONS Versed 1 mg IV Fentanyl 50 mcg IV Versed 1 mg IV Fentanyl 50 mcg IV Oxygen: 2 L/min via nasal cannula Baby Aspirin (81mg) 1 Tabs PO @ 08/11/2021 08:30:10 Heparin given IA 08/11/2021 09:42:24 Heparin 6000 unit(s) IV 08/11/2021 10:19:03 Heparin 2000 unit(s) IV 08/11/2021 10:33:20 Plavix 75 mg PO 08/11/2021 08:30:19 Plavix 300 mg PO 08/11/2021 10:44:27 IV Bolus: .9 NaCl 250 ml total 08/11/2021 10:49:41 SUMMARY OF HEMODYNAMIC DATA Time AIR REST ECG 08:26:55 Art 175/69 (105) 09:32:22 AO 143/74 (103) SA 09:44:26 LV 166/0, 23 09:52:42 LV 162/-1, 25 09:52:48 LV 147/7, 27 09:53:34 LV 160/0, 24 09:53:41 LVp 164/2, 25 09:53:45 AOp 161/79 (112) 09:53:50 Signed By James Lama MD On 08/11/2021 11:59:28 AM James Lama MD
[2021-08-11] MEDS: 0.9% Normal Saline 1,000 ML 150 ML IV (12:35)
[2021-08-11 14:21] LABS: Hemoglobin 12.9 g/dL (13.0-16.5); Mean Corp Hgb Conc 33.1 g/dL (32-36); Mean Corpuscular Hgb 30.1 pg (27.0-32.0); Mean Corpuscular Volume 91.1 fL (80-94); Mean Platelet Vol. 10.4 fl (6.2-12.0); Platelet Count 199 K/mm3 (150-450); RBC Distribution Width CV 13.6 % (11.6-14.6); RBC Distribution Width SD 45.6 fl (35.1-43.9); Red Blood Count 4.28 M/mm3 (4.6-6.2); White Blood Count 4.6 K/mm3 (4.4-11.0)
[2021-08-11] MEDS: Tamsulosin HCl 0.4 MG Capsule PO (17:47)
[2021-08-11] MEDS: Acetaminophen 325 MG Tablet 650 MG PO (20:27)
[2021-08-12 00:38] VITALS: PULSE 55
[2021-08-12 02:49] VITALS: BP 134/64; PULSE 50; RESP 12; TEMP 36.6; O2SAT 97
[2021-08-12 03:26] VITALS: PULSE 63
[2021-08-12 05:40] LABS: Absolute Lymphocyte Count 1.21 X10^3/uL (0.83-4.51); Absolute Neutrophil Count 3.3 X10^3/uL (2.0-7.7); Basophil# 0.05 X10^3/uL; Basophil% 0.9 % (0-1); Eosinophil# 0.26 X10^3/uL; Eosinophils% 4.8 % (0-5); Hematocrit 41.3 % (40-54); Hemoglobin 13.6 g/dL (13.0-16.5); Lymphocyte # 1.21 X10^3/ul (0.83-4.51); Lymphocyte % 22.2 % (19-41); Mean Corp Hgb Conc 32.9 g/dL (32-36); Mean Corpuscular Hgb 30.4 pg (27.0-32.0); Mean Corpuscular Volume 92.4 fL (80-94); Mean Platelet Vol. 10.4 fl (6.2-12.0); Monocyte# 0.63 X10^3/uL; Monocyte% 11.5 % (0-10); NRBC Flagged by Analyzer 0 % (0-5); Neutrophil % 60.4 % (47-70); Platelet Count 223 K/mm3 (150-450); RBC Distribution Width CV 13.5 % (11.6-14.6); RBC Distribution Width SD 46.1 fl (35.1-43.9); Red Blood Count 4.47 M/mm3 (4.6-6.2); White Blood Count 5.5 K/mm3 (4.4-11.0)
--- NOTE | 2021-08-12 05:55 | EKG12_ITS ---
Test Reason : AM Blood Pressure : / mmHG Vent. Rate : 048 BPM Atrial Rate : 048 BPM P-R Int : 196 ms QRS Dur : 076 ms QT Int : 434 ms P-R-T Axes : 073 064 047 degrees QTc Int : 387 ms Sinus bradycardia Otherwise normal ECG When compared with ECG of 11-AUG-2021 11:58, MANUAL COMPARISON REQUIRED, DATA IS UNCONFIRMED Confirmed by TIRSO WATKINS, JOANNE ([id number]), non linear editor MEGAN CORCORAN ([id number]) on 08/13/2021 12:42:10 PM Referred By: James Lama Confirmed By:JOANNE CHAHAL MD
[2021-08-12 06:01] LABS: ALB/GLOB Ratio 0.9 RATIO (0.9-2.4); AST(SGOT) 21 U/L (15-37); Alanine Aminotransfer ALT/SGPT 26 U/L (16-61); Albumin, Serum 3.3 g/dL (3.2-5.0); Alkaline Phosphatase 72 U/L (45-117); Anion Gap 6 (5-15); BUN 20 mg/dL (7-18); BUN/Creat Ratio 19.2 RATIO (10-20); Calcium,Total 8.6 mg/dL (8.5-10.1); Chloride 105 mmol/L (98-107); Creatinine, Serum 1.04 mg/dL (0.70-1.30); EST Glomerular Filtration Rate 75 mL/min (>60); Est Glom Filt Rate - Afr Amer 90 mL/min (>60); Estimated Creatinine Clearance 77.86 ml/min; Globulin 3.7 g/dL (2.2-4.2); Glucose 94 mg/dL (74-106); Potassium 4.4 mmol/L (3.5-5.1); Sodium Level 140 mmol/L (136-145)
[2021-08-12 06:42] VITALS: BP 145/75; PULSE 52; RESP 12; TEMP 36.6; O2SAT 97
[2021-08-12 07:01] VITALS: PULSE 48
[2021-08-12 07:20] VITALS: O2SAT 95
--- NOTE | 2021-08-12 08:25 | PCS.PANDOC ---
PANDEMIC DOCUMENTATION INITIATED: Date: 06/29/2021 Time: 190
[2021-08-12] MEDS: Aspirin E.C. 81 MG Tablet PO (08:28)
[2021-08-12] MEDS: Ezetimibe 10 MG Tablet PO (08:28)
[2021-08-12] MEDS: Clopidogrel Bisulfate 75 MG Tablet PO (08:28)
--- NOTE | 2021-08-12 09:09 | DCINST_ITS ---
Discharge Instructions Diet Discharge Diet: Low fat / Low cholesterol Activity Discharge Activity: May Not Drive (x 2 days), May Shower (today) and May Take a Tub Bath (in 7 days) May resume sexual activity in: 1-2 weeks Lifting Restrictions: avoid heavy lifting / exertion for a minimum of 1 week Dressing / Incision Call your doctor if your incision/area has: Continuous Slow Oozing, Sudden Increased Bleeding, Increased Pain/ Swelling, Increased Redness, Foul Smelling Discharge and Swelling at the incision site Call your doctor if you observe: Fever of 101 or Higher, Shortness of breath, Fainting spells, Swelling in the ankles, Chest pain, Increased palpitations (irregular heartbeat) and Uncontrolled pain Remove Dressing in: 1 day Cleanse incision/area with: Soap & Water Follow Up Care Please Follow Up With: James Lama MD When: [facility] office to arrange an appointment Test Results: Test results from this visit will be discussed in further detail at your follow-up appointment, if applicable. Discharge Plan Admission Admit Date/Time: 08/11/21 10:24 Primary Reason for Your Visit: Chest pain Attending Provider: James Lama Primary Care Provider: Lawrence Wilson Discharge Orders/Prescriptions Prescriptions: No Action clopidogrel 75 mg tablet 75 mg PO DAILY Qty: 7 RF: 0 flaxseed oil 1,000 mg capsule 1,000 mg PO DAILY RF: 0 Adult One Daily Multivitamin 0.4 mg tablet 1 tab PO DAILY RF: 0 coenzyme Q10 [Co Q-10] 100 mg capsule 100 mg PO DAILY RF: 0 meloxicam [Mobic] 15 mg tablet 15 mg PO DAILY RF: 0 tadalafil [Cialis] 5 mg tablet 5 mg PO DAILY RF: 0 aspirin [Adult Aspirin Regimen] 81 mg tablet,delayed release (DR/EC) 81 mg PO DAILY RF: 0 ezetimibe [Zetia] 10 mg tablet 10 mg PO DAILY RF: 0 tamsulosin [Flomax] 0.4 mg capsule 0.4 mg PO QHS RF: 0 Referrals / Follow Up: Lawrence Wilson MD [Primary Care Provider] - James Lama MD [STAFF PHYSICIAN] -
--- NOTE | 2021-08-12 09:14 | DS.PCM_ITS ---
Providers Date of Admission: 08/11/21 Primary Care Physician: Dr. Lawrence Wilson MD Reason For Visit: CHEST PAIN,SOB, FATIGUE Diagnosis Discharge Diagnosis (1) Atherosclerotic heart disease of [place] coronary artery without angina pectoris: Status: Acute Code(s): I25.10 - Atherosclerotic heart disease of [place] coronary artery without angina pectoris (2) Presence of stent in coronary artery: Status: Acute Code(s): Z95.5 - Presence of coronary angioplasty implant and graft (3) Sinus bradycardia: Status: Acute Code(s): R00.1 - Bradycardia, unspecified (4) Mixed hyperlipidemia: Status: Acute Code(s): E78.2 - Mixed hyperlipidemia Medications at Discharge Home Medications aspirin 81 mg tablet,delayed release 81 mg PO DAILY 04/28/21 coenzyme Q10 100 mg capsule 100 mg PO DAILY 04/28/21 ezetimibe 10 mg tablet 10 mg PO DAILY 04/28/21 flaxseed oil 1,000 mg capsule 1,000 mg PO DAILY 04/28/21 meloxicam 15 mg tablet 15 mg PO DAILY 04/28/21 multivitamin with minerals-folic acid 0.4 mg tablet 1 tab PO DAILY 04/28/21 tadalafil 5 mg tablet 5 mg PO DAILY 04/28/21 tamsulosin 0.4 mg capsule 0.4 mg PO QHS 04/28/21 clopidogrel 75 mg tablet 75 mg PO DAILY #7 tab 07/22/21 Hospital Course Procedures Cardiac catheterization and - (Cardiac Intervention ) Summary of Care Provided Minutes Spent on Discharge: 45 Hospital Course: This is a 70-year-old white male who presented to [facility] for outpatient diagnostic cardiac catheterization secondary to ongoing concerns of chest discomfort. He underwent diagnostic cardiac catheterization and was found to have overall preserved left ventricular wall motion and systolic function and LVEF. His coronary angiography demonstrated angiographically significant appearing CAD involving the LAD distribution. He subsequent underwent LAD PCI/SHERIN. He was monitored in the hospital overnight. He appeared to remain symptomatically and hemodynamically stable. On this day he was felt stable for release home for continued outpatient cardiovascular follow-up/medical therapy (which has included lipid-lowering therapy with his nonstatin medication-Zetia), and outpatient cardiac rehabilitation. Physical Exam Const alert, oriented x3 and no apparent distress General Appearance: cooperative, comfortable, well kempt and well developed HEENT normocephalic, head/scalp atraumatic and hearing grossly normal bilaterally Eyes PERRL, EOMs intact bilaterally and conjunctivae normal Neck full ROM Chest Chest: symmetrical chest wall rise Resp normal respiratory effort and clear to auscultation bilaterally Cardio regular rate, regular rhythm, S1 normal heart sound and S2 normal heart sound GI normal to inspection, nondistended, normoactive bowel sounds Extremity no pedal edema Peripheral Pulses: Yes radial pulses present right (No bruits: No hematoma) 2+ Psych mental status grossly normal Weight / BMI Weight Weight: 199 lb 15.348 oz Body Mass Index (BMI) 25.0 ABG / Lab / Microbiology Data Result Diagrams: 08/12/21 05:16 08/12/21 05:16 Laboratory: Laboratory Results - last 24 hr 08/11/21 14:10: WBC 4.6, RBC 4.28 L, Hgb 12.9 L, Hct 39.0 L, MCV 91.1, MCH 30.1, MCHC 33.1, RDW Std Deviation 45.6 H, RDW Coeff of Anuj 13.6, Plt Count 199, MPV 10.4 08/12/21 05:16: WBC 5.5, RBC 4.47 L, Hgb 13.6, Hct 41.3, MCV 92.4, MCH 30.4, MCHC 32.9, RDW Std Deviation 46.1 H, RDW Coeff of Anuj 13.5, Plt Count 223, MPV 10.4, Immature Gran % (Auto) 0.200, Neut % (Auto) 60.4, Lymph % (Auto) 22.2, Gage % (Auto) 11.5 H, Eos % (Auto) 4.8, Baso % (Auto) 0.9, Absolute Neuts (auto) 3.3, Absolute Lymphs (auto) 1.21, Nucleated RBC % 0 08/12/21 05:16: Sodium 140, Potassium 4.4, Chloride 105, Carbon Dioxide 29.0, Anion Gap 6, BUN 20 H, Creatinine 1.04, Estim Creat Clear Calc 77.86, Est GFR (MDRD) Af Amer 90, Est GFR (MDRD) Non-Af 75, BUN/Creatinine Ratio 19.2, Glucose 94, Calcium 8.6, Total Bilirubin 0.80, AST 21, ALT 26, Alkaline Phosphatase 72, Total Protein 7.0, Albumin 3.3, Globulin 3.7, Albumin/Globulin Ratio 0.9 Cardiac rhythm: Sinus rhythm; PACs ECG: Sinus rhythm; no acute ECG changes D/C Instructions Discharge Diet: Low fat / Low cholesterol May resume sexual activity in: 1-2 weeks Call your doctor if your incision/area has: Continuous Slow Oozing, Sudden Increased Bleeding, Increased Pain/ Swelling, Increased Redness, Foul Smelling Discharge and Swelling at the incision site Call your doctor if you observe: Fever of 101 or Higher, Shortness of breath, Fainting spells, Swelling in the ankles, Chest pain, Increased palpitations (irregular heartbeat) and Uncontrolled pain Cleanse incision/area with: Soap & Water Please Follow Up With: James Lama MD When: [facility] office to arrange an appointment Meaningful Use Info Meaningful Use Diagnoses (Choose all that apply): None applicable Discharge Plan Admission Admit Date/Time: 08/11/21 10:24 Primary Reason for Your Visit: Chest pain Attending Provider: James Lama Primary Care Provider: Lawrence Wilson Discharge Orders/Prescriptions Prescriptions: No Action clopidogrel 75 mg tablet 75 mg PO DAILY Qty: 7 RF: 0 flaxseed oil 1,000 mg capsule 1,000 mg PO DAILY RF: 0 Adult One Daily Multivitamin 0.4 mg tablet 1 tab PO DAILY RF: 0 coenzyme Q10 [Co Q-10] 100 mg capsule 100 mg PO DAILY RF: 0 meloxicam [Mobic] 15 mg tablet 15 mg PO DAILY RF: 0 tadalafil [Cialis] 5 mg tablet 5 mg PO DAILY RF: 0 aspirin [Adult Aspirin Regimen] 81 mg tablet,delayed release (DR/EC) 81 mg PO DAILY RF: 0 ezetimibe [Zetia] 10 mg tablet 10 mg PO DAILY RF: 0 tamsulosin [Flomax] 0.4 mg capsule 0.4 mg PO QHS RF: 0 Referrals / Follow Up: Lawrence Wilson MD [Primary Care Provider] - James Lama MD [STAFF PHYSICIAN] -
--- NOTE | 2021-08-12 10:07 | PHA.DC.MR ---
Pharmacy Service has performed discharge medication reconciliation for this patient. The patient's discharge medication list was reviewed for discrepancies and discrepancies were resolved. Home Medications aspirin 81 mg tablet,delayed release 81 mg PO DAILY 04/28/21 coenzyme Q10 100 mg capsule 100 mg PO DAILY 04/28/21 ezetimibe 10 mg tablet 10 mg PO DAILY 04/28/21 flaxseed oil 1,000 mg capsule 1,000 mg PO DAILY 04/28/21 meloxicam 15 mg tablet 15 mg PO DAILY 04/28/21 multivitamin with minerals-folic acid 0.4 mg tablet 1 tab PO DAILY 04/28/21 tadalafil 5 mg tablet 5 mg PO DAILY 04/28/21 tamsulosin 0.4 mg capsule 0.4 mg PO QHS 04/28/21 clopidogrel 75 mg tablet 75 mg PO DAILY #7 tab 07/22/21
== END 2021-08-12 09:20 | disposition home or self-care (01) ==
LOC: PCU 08-12 08:01
PROVIDERS: Internal Medicine Interventional Cardiology; Admitting Provider Internal Medicine Cardiovascular Disease; PCP Family Medicine; Referring Provider Internal Medicine Cardiovascular Disease; Visit Provider Internal Medicine Cardiovascular Disease
DX: I25.10 Atherosclerotic heart disease of native coronary artery without angina pectoris (principal); E78.2 Mixed hyperlipidemia; Z23 Encounter for immunization; R00.1 Bradycardia, unspecified; R06.09 Other forms of dyspnea; M79.602 Pain in left arm; R06.02 Shortness of breath; Z79.82 Long term (current) use of aspirin; Z79.899 Other long term (current) drug therapy; Z79.02 Long term (current) use of antithrombotics/antiplatelets; Z95.5 Presence of coronary angioplasty implant and graft
CPT/HCPCS: 36415; 80053; 85025; 85027; 92928; 93005; 93458; 96361; 96365; 96366; 99152; 99153; 99218; C1874; G0008; J7030; J7040; Q9967; 90686; C1725; C1769; C1887; C1894; C9600; G0378; J1327

== ENCOUNTER → 2021-09-07 08:52 | Outpatient (CLI) | payer MEDICARE, OTHER, SELFPAY ==
[2021-09-07 10:17] LABS: Absolute Lymphocyte Count 1.11 X10^3/uL (0.83-4.51); Absolute Neutrophil Count 2.2 X10^3/uL (2.0-7.7); Basophil# 0.04 X10^3/uL; Eosinophil# 0.17 X10^3/uL; Eosinophils% 4.2 % (0-5); Hematocrit 40.6 % (40-54); Hemoglobin 13.3 g/dL (13.0-16.5); Lymphocyte # 1.11 X10^3/ul (0.83-4.51); Lymphocyte % 27.4 % (19-41); Mean Corp Hgb Conc 32.8 g/dL (32-36); Mean Corpuscular Hgb 30.2 pg (27.0-32.0); Mean Corpuscular Volume 92.1 fL (80-94); Mean Platelet Vol. 10.6 fl (6.2-12.0); Monocyte# 0.54 X10^3/uL; Monocyte% 13.3 % (0-10); NRBC Flagged by Analyzer 0 % (0-5); Neutrophil # 2.18 X10^3/uL (2.7-7.7); Neutrophil % 53.9 % (47-70); Platelet Count 206 K/mm3 (150-450); RBC Distribution Width CV 13.5 % (11.6-14.6); RBC Distribution Width SD 46.3 fl (35.1-43.9); Red Blood Count 4.41 M/mm3 (4.6-6.2); White Blood Count 4.1 K/mm3 (4.4-11.0)
[2021-09-07 10:49] LABS: ALB/GLOB Ratio 0.9 RATIO (0.9-2.4); AST(SGOT) 22 U/L (15-37); Alanine Aminotransfer ALT/SGPT 29 U/L (16-61); Albumin, Serum 3.6 g/dL (3.2-5.0); Alkaline Phosphatase 75 U/L (45-117); Anion Gap 8 (5-15); BUN 21 mg/dL (7-18); BUN/Creat Ratio 19.1 RATIO (10-20); Calcium,Total 8.9 mg/dL (8.5-10.1); Chloride 104 mmol/L (98-107); Cholesterol 249 mg/dL (200); EST Glomerular Filtration Rate 70 mL/min (>60); Est Glom Filt Rate - Afr Amer 85 mL/min (>60); Glucose 94 mg/dL (74-106); High Density Lipoprotein 56 mg/dL; Potassium 4.2 mmol/L (3.5-5.1); Protein, Total 7.6 g/dL (6.4-8.2); Sodium Level 139 mmol/L (136-145); Triglycerides 95 mg/dL; Very Low Density Lipoprotein 19 mg/dL (5-40)
== END ==
PROVIDERS: PCP Family Medicine; Referring Provider Family Medicine; Visit Provider Family Medicine
DX: I25.10 Atherosclerotic heart disease of native coronary artery without angina pectoris (principal)
CPT/HCPCS: 36415; 80053; 80061; 85025

== ENCOUNTER 2021-12-07 08:15 | Outpatient (CLI) | payer MEDICARE, OTHER, SELFPAY ==
[2021-12-07 10:14] LABS: Absolute Lymphocyte Count 1.31 X10^3/uL (0.83-4.51); Absolute Neutrophil Count 2.4 X10^3/uL (2.0-7.7); Basophil# 0.05 X10^3/uL; Basophil% 1.1 % (0-1); Eosinophil# 0.23 X10^3/uL; Hematocrit 40.7 % (40-54); Hemoglobin 13.6 g/dL (13.0-16.5); Lymphocyte # 1.31 X10^3/ul (0.83-4.51); Lymphocyte % 28.5 % (19-41); Mean Corp Hgb Conc 33.4 g/dL (32-36); Mean Corpuscular Hgb 30.4 pg (27.0-32.0); Mean Corpuscular Volume 90.8 fL (80-94); Mean Platelet Vol. 10.7 fl (6.2-12.0); Monocyte# 0.56 X10^3/uL; Monocyte% 12.2 % (0-10); NRBC Flagged by Analyzer 0 % (0-5); Neutrophil # 2.44 X10^3/uL (2.7-7.7); Platelet Count 211 K/mm3 (150-450); RBC Distribution Width CV 14.1 % (11.6-14.6); RBC Distribution Width SD 46.9 fl (35.1-43.9); Red Blood Count 4.48 M/mm3 (4.6-6.2); White Blood Count 4.6 K/mm3 (4.4-11.0)
[2021-12-07 10:33] LABS: ALB/GLOB Ratio 0.9 RATIO (0.9-2.4); AST(SGOT) 28 U/L (15-37); Alanine Aminotransfer ALT/SGPT 32 U/L (16-61); Albumin, Serum 3.6 g/dL (3.2-5.0); Alkaline Phosphatase 77 U/L (45-117); Anion Gap 5 (5-15); BUN 22 mg/dL (7-18); BUN/Creat Ratio 20.2 RATIO (10-20); Calcium,Total 8.7 mg/dL (8.5-10.1); Chloride 105 mmol/L (98-107); Cholesterol 233 mg/dL (200); Creatinine, Serum 1.09 mg/dL (0.70-1.30); EST Glomerular Filtration Rate 71 mL/min (>60); Est Glom Filt Rate - Afr Amer 86 mL/min (>60); Glucose 79 mg/dL (74-106); High Density Lipoprotein 46 mg/dL; PSA,Total- Diagnostic 0.93 ng/mL (0.0-4.0); Potassium 4.1 mmol/L (3.5-5.1); Protein, Total 7.6 g/dL (6.4-8.2); Sodium Level 139 mmol/L (136-145); Triglycerides 208 mg/dL; Very Low Density Lipoprotein 42 mg/dL (5-40)
== END 2021-12-07 23:59 | disposition short-term general hospital (02) ==
LOC: MFPLAB 08:18
PROVIDERS: PCP Family Medicine; Visit Provider Family Medicine
DX: I25.10 Atherosclerotic heart disease of native coronary artery without angina pectoris (principal); C61 Malignant neoplasm of prostate
CPT/HCPCS: 36415; 80053; 80061; 84153; 85025

== ENCOUNTER 2021-12-21 07:55 | Outpatient (CLI) | payer MEDICARE, OTHER, SELFPAY ==
--- NOTE | 2021-12-21 07:59 | CDU_ITS ---
Reason For Study: CAROTID STENOSIS Rt. Velocities/BP Lt. Velocities/BP Prox CCA 111.6/13.8 cm/sec. Prox CCA 98.6/13.9 cm/sec. Mid CCA 90.8/12.5 cm/sec. Mid CCA 80.2/13.9 cm/sec. Dist CCA 89.5/15.1 cm/sec. Dist CCA 72.8/17.6 cm/sec. Prox ICA 85.6/21.6 cm/sec. Prox ICA 76.5/16.3 cm/sec. Mid ICA 80.3/21.6 cm/sec. Mid ICA 67.9/18.8 cm/sec. Dist ICA 58.9/17.1 cm/sec. Dist ICA 77.7/18.8 cm/sec. Rt. ICA/CCA = 85.6/90.8=0.9. Lt. ICA/CCA = 77.7/80.2=1.0. Prox ECA 116.9/7.3 cm/sec. Prox ECA 82.7/10.2 cm/sec. Rt. Vert. 62.2/17.1 cm/sec. Lt. Vert. 60.1/15.7 cm/sec. Right Extracranial There is homogeneous, smooth atherosclerotic plaque noted in the right common carotid artery. There is heterogeneous, irregular atherosclerotic plaque noted in the right internal carotid artery. There is heterogeneous, smooth atherosclerotic plaque noted in the right external carotid artery. Antegrade flow is noted in the right vertebral artery. Left Extracranial There is homogeneous, smooth atherosclerotic plaque noted in the left common carotid artery. There is heterogeneous, smooth atherosclerotic plaque noted in the left internal carotid artery. There is homogeneous, smooth atherosclerotic plaque noted in the left external carotid artery. Antegrade flow is noted in the left vertebral artery. Procedure Carotid Duplex 16028. This is a Carotid Duplex examination using B-mode, color flow and specral Doppler. Exam performed in department. VL/Carotid Duplex Ultrasound Interpretation Summary Mild (<50%) stenosis right extracranial internal carotid. Mild (<50%) stenosis left extracranial internal carotid. Flow within the vertebral arteries is antegrade bilaterally. Ordering Physician: Lawrence Wilson Referring Physician: Lawrence Wilson Performed By: Rosana Odell, PRESTON, RVT
== END 2021-12-21 23:59 | disposition home or self-care (01) ==
LOC: CVS 07:58
PROVIDERS: PCP Family Medicine; Referring Provider Family Medicine; Visit Provider Family Medicine
DX: I65.23 Occlusion and stenosis of bilateral carotid arteries (principal)
CPT/HCPCS: 93880

== ENCOUNTER → 2022-03-10 | Outpatient (CLI) | payer MEDICARE, OTHER, SELFPAY ==
[2022-03-10 10:46] LABS: AST(SGOT) 23 U/L (15-37); Alanine Aminotransfer ALT/SGPT 30 U/L (16-61); Albumin, Serum 3.7 g/dL (3.2-5.0); Alkaline Phosphatase 70 U/L (45-117); Anion Gap 5 (5-15); BUN 22 mg/dL (7-18); BUN/Creat Ratio 19.5 RATIO (10-20); Calcium,Total 8.4 mg/dL (8.5-10.1); Chloride 106 mmol/L (98-107); Cholesterol 241 mg/dL (200); Creatinine, Serum 1.13 mg/dL (0.70-1.30); EST Glomerular Filtration Rate 68 mL/min (>60); Est Glom Filt Rate - Afr Amer 82 mL/min (>60); Globulin 3.6 g/dL (2.2-4.2); Glucose 90 mg/dL (74-106); High Density Lipoprotein 48 mg/dL; Potassium 4.2 mmol/L (3.5-5.1); Protein, Total 7.3 g/dL (6.4-8.2); Sodium Level 138 mmol/L (136-145); Triglycerides 97 mg/dL; Very Low Density Lipoprotein 19 mg/dL (5-40)
== END | disposition home or self-care (01) ==
LOC: MFPLAB 08:41
PROVIDERS: PCP Family Medicine; Referring Provider Family Medicine; Visit Provider Family Medicine
DX: E78.5 Hyperlipidemia, unspecified (principal)
CPT/HCPCS: 36415; 80053; 80061

== ENCOUNTER → 2022-03-18 | Outpatient (CLI) | payer MEDICARE, OTHER, SELFPAY | END | disposition home or self-care (01) | LOC: PSN 08:18 | PROVIDERS: PCP Family Medicine; Referring Provider Internal Medicine Cardiovascular Disease; Visit Provider Internal Medicine Cardiovascular Disease | DX: R42 Dizziness and giddiness (principal) | CPT/HCPCS: 93225; 93226 ==

== ENCOUNTER → 2022-03-22 | Outpatient (CLI) | payer MEDICARE, OTHER, SELFPAY ==
--- NOTE | 2022-03-22 07:56 | CDU_ITS ---
Reason For Study: stenosis Rt. Velocities/BP Lt. Velocities/BP Prox CCA 109.9/13.4 cm/sec. Prox CCA 99.8/17.6 cm/sec. Mid CCA 98.2/14.7 cm/sec. Mid CCA 90.0/16.3 cm/sec. Dist CCA 87.8/12.1 cm/sec. Dist CCA 76.5/17.6 cm/sec. Prox ICA 56.5/12.1 cm/sec. Prox ICA 66.7/16.3 cm/sec. Mid ICA 83.9/22.6 cm/sec. Mid ICA 83.9/24.9 cm/sec. Dist ICA 68.2/21.3 cm/sec. Dist ICA 82.6/24.9 cm/sec. Rt. ICA/CCA = .9. Lt. ICA/CCA = .9. Prox ECA 104.7/8.2 cm/sec. Prox ECA 80.2/10.2 cm/sec. Rt. Vert. 68.2/17.3 cm/sec. Lt. Vert. 47.6/9.1 cm/sec. Right Extracranial There is homogeneous, smooth atherosclerotic plaque noted in the right common carotid artery. There is heterogeneous, irregular atherosclerotic plaque noted in the right internal carotid artery. There is heterogeneous, irregular atherosclerotic plaque noted in the right external carotid artery. Antegrade flow is noted in the right vertebral artery. Left Extracranial There is homogeneous, smooth atherosclerotic plaque noted in the left common carotid artery. There is heterogeneous, irregular atherosclerotic plaque noted in the left internal carotid artery. There is heterogeneous, irregular atherosclerotic plaque noted in the left external carotid artery. Antegrade flow is noted in the left vertebral artery. Procedure Carotid Duplex 16761. This is a Carotid Duplex examination using B-mode, color flow and specral Doppler. The exam was diagnostic. Exam performed in department. VL/Carotid Duplex Ultrasound Interpretation Summary Irregular calcific plaque at the proximal right internal carotid artery with le ss than 50% stenosis Less than 50% stenosis right external carotid artery Mild irregular plaque at the proximal left internal carotid artery with less th an 50% stenosis Less than 50% stenosis left external carotid artery Patent and antegrade vertebral arteries bilaterally No change from the previous examination of December 21, 2021 Ordering Physician: Lawrence Wilson Performed By: George Bravo RVT
== END | disposition home or self-care (01) ==
LOC: CVS 07:54
PROVIDERS: PCP Family Medicine; Referring Provider Family Medicine; Visit Provider Family Medicine
DX: I65.23 Occlusion and stenosis of bilateral carotid arteries (principal)
CPT/HCPCS: 93880

== ENCOUNTER → 2022-06-08 | Outpatient (CLI) | payer MEDICARE, OTHER, SELFPAY ==
[2022-06-08 10:27] LABS: Absolute Lymphocyte Count 1.38 X10^3/uL (0.83-4.51); Absolute Neutrophil Count 2.3 X10^3/uL (2.0-7.7); Basophil# 0.04 X10^3/uL; Basophil% 0.9 % (0-1); Eosinophil# 0.14 X10^3/uL; Eosinophils% 3.1 % (0-5); Hematocrit 41.1 % (40-54); Hemoglobin 13.9 g/dL (13.0-16.5); Lymphocyte # 1.38 X10^3/ul (0.83-4.51); Mean Corp Hgb Conc 33.8 g/dL (32-36); Mean Corpuscular Hgb 31.3 pg (27.0-32.0); Mean Corpuscular Volume 92.6 fL (80-94); Mean Platelet Vol. 10.8 fl (6.2-12.0); Monocyte# 0.54 X10^3/uL; Monocyte% 12.1 % (0-10); NRBC Flagged by Analyzer 0 % (0-5); Neutrophil # 2.34 X10^3/uL (2.7-7.7); Neutrophil % 52.7 % (47-70); Platelet Count 207 K/mm3 (150-450); RBC Distribution Width CV 13.6 % (11.6-14.6); RBC Distribution Width SD 46.3 fl (35.1-43.9); Red Blood Count 4.44 M/mm3 (4.6-6.2); White Blood Count 4.5 K/mm3 (4.4-11.0)
[2022-06-08 10:40] LABS: AST(SGOT) 21 U/L (15-37); Alanine Aminotransfer ALT/SGPT 26 U/L (16-61); Albumin, Serum 3.7 g/dL (3.2-5.0); Alkaline Phosphatase 71 U/L (45-117); Anion Gap 4 (5-15); BUN 30 mg/dL (7-18); BUN/Creat Ratio 27.8 RATIO (10-20); Chloride 109 mmol/L (98-107); Cholesterol 230 mg/dL (200); Creatinine, Serum 1.08 mg/dL (0.70-1.30); EST Glomerular Filtration Rate 71 mL/min (>60); Est Glom Filt Rate - Afr Amer 86 mL/min (>60); Globulin 3.7 g/dL (2.2-4.2); Glucose 94 mg/dL (74-106); High Density Lipoprotein 47 mg/dL; Potassium 4.1 mmol/L (3.5-5.1); Protein, Total 7.4 g/dL (6.4-8.2); Sodium Level 140 mmol/L (136-145); Triglycerides 133 mg/dL; Very Low Density Lipoprotein 27 mg/dL (5-40)
== END | disposition home or self-care (01) ==
LOC: MFPLAB 08:23
PROVIDERS: PCP Family Medicine; Referring Provider Family Medicine; Visit Provider Family Medicine
DX: E78.5 Hyperlipidemia, unspecified (principal)
CPT/HCPCS: 36415; 80053; 80061; 85025

== ENCOUNTER → 2022-08-02 | Outpatient (CLI) | payer MEDICARE, OTHER, SELFPAY ==
[2022-08-02 13:16] LABS: PSA,Total- Diagnostic 1.19 ng/mL (0.0-4.0)
== END | disposition home or self-care (01) ==
PROVIDERS: PCP Family Medicine; Referring Provider Student in an Organized Health Care Education/Training Program; Visit Provider Student in an Organized Health Care Education/Training Program
DX: Z85.46 Personal history of malignant neoplasm of prostate (principal)
CPT/HCPCS: 36415; 84153

== ENCOUNTER 2022-10-08 08:39 | Outpatient (CLI) | payer MEDICARE, OTHER, SELFPAY ==
[2022-10-08 09:46] LABS: Absolute Lymphocyte Count 1.38 X10^3/uL (0.83-4.51); Absolute Neutrophil Count 2.1 X10^3/uL (2.0-7.7); Basophil# 0.05 X10^3/uL; Basophil% 1.2 % (0-1); Eosinophil# 0.17 X10^3/uL; Hemoglobin 13.4 g/dL (13.0-16.5); Lymphocyte # 1.38 X10^3/ul (0.83-4.51); Lymphocyte % 32.2 % (19-41); Mean Corp Hgb Conc 33.5 g/dL (32-36); Mean Corpuscular Volume 92.6 fL (80-94); Mean Platelet Vol. 10.2 fl (6.2-12.0); Monocyte# 0.55 X10^3/uL; Monocyte% 12.9 % (0-10); NRBC Flagged by Analyzer 0 % (0-5); Neutrophil # 2.13 X10^3/uL (2.7-7.7); Neutrophil % 49.7 % (47-70); Platelet Count 234 K/mm3 (150-450); RBC Distribution Width CV 13.3 % (11.6-14.6); Red Blood Count 4.32 M/mm3 (4.6-6.2); White Blood Count 4.3 K/mm3 (4.4-11.0)
[2022-10-08 10:00] LABS: ALB/GLOB Ratio 1.2 RATIO (0.9-2.4); AST(SGOT) 24 U/L (15-37); Alanine Aminotransfer ALT/SGPT 31 U/L (16-61); Albumin, Serum 3.8 g/dL (3.2-5.0); Alkaline Phosphatase 75 U/L (45-117); Anion Gap 6 (5-15); BUN 26 mg/dL (7-18); BUN/Creat Ratio 22.6 RATIO (10-20); Calcium,Total 8.8 mg/dL (8.5-10.1); Chloride 106 mmol/L (98-107); Cholesterol 181 mg/dL (200); Creatinine, Serum 1.15 mg/dL (0.70-1.30); EST Glomerular Filtration Rate 66 mL/min (>60); Est Glom Filt Rate - Afr Amer 80 mL/min (>60); Globulin 3.3 g/dL (2.2-4.2); Glucose 95 mg/dL (74-106); High Density Lipoprotein 55 mg/dL; Potassium 4.6 mmol/L (3.5-5.1); Protein, Total 7.1 g/dL (6.4-8.2); Sodium Level 141 mmol/L (136-145); Triglycerides 96 mg/dL; Very Low Density Lipoprotein 19 mg/dL (5-40)
== END 2022-10-08 23:59 | disposition home or self-care (01) ==
PROVIDERS: PCP Family Medicine; Referring Provider Family Medicine; Visit Provider Family Medicine
DX: I25.10 Atherosclerotic heart disease of native coronary artery without angina pectoris (principal)
CPT/HCPCS: 36415; 80053; 80061; 85025

== ENCOUNTER → 2022-12-03 | Outpatient (CLI) | payer MEDICARE, OTHER, SELFPAY ==
[2022-12-03 16:24] LABS: PSA,Total- Diagnostic 1.46 ng/mL (0.0-4.0)
== END | disposition home or self-care (01) ==
LOC: MTLAB 13:48
PROVIDERS: PCP Family Medicine; Referring Provider Student in an Organized Health Care Education/Training Program; Visit Provider Student in an Organized Health Care Education/Training Program
DX: Z85.46 Personal history of malignant neoplasm of prostate (principal)
CPT/HCPCS: 36415; 84153

== ENCOUNTER → 2023-03-11 | Outpatient (CLI) | payer MEDICARE, OTHER, SELFPAY ==
[2023-03-11 10:00] LABS: Absolute Lymphocyte Count 1.14 X10^3/uL (0.83-4.51); Absolute Neutrophil Count 2.2 X10^3/uL (2.0-7.7); Basophil# 0.04 X10^3/uL; Eosinophil# 0.14 X10^3/uL; Eosinophils% 3.5 % (0-5); Hematocrit 40.8 % (40-54); Hemoglobin 13.4 g/dL (13.0-16.5); Lymphocyte # 1.14 X10^3/ul (0.83-4.51); Lymphocyte % 28.4 % (19-41); Mean Corp Hgb Conc 32.8 g/dL (32-36); Mean Corpuscular Hgb 30.6 pg (27.0-32.0); Mean Corpuscular Volume 93.2 fL (80-94); Mean Platelet Vol. 10.7 fl (6.2-12.0); Monocyte# 0.54 X10^3/uL; Monocyte% 13.4 % (0-10); NRBC Flagged by Analyzer 0 % (0-5); Neutrophil # 2.15 X10^3/uL (2.7-7.7); Neutrophil % 53.5 % (47-70); Platelet Count 222 K/mm3 (150-450); RBC Distribution Width CV 13.8 % (11.6-14.6); RBC Distribution Width SD 47.4 fl (35.1-43.9); Red Blood Count 4.38 M/mm3 (4.6-6.2)
[2023-03-11 10:13] LABS: ALB/GLOB Ratio 1.1 RATIO (0.9-2.4); AST(SGOT) 21 U/L (15-37); Alanine Aminotransfer ALT/SGPT 31 U/L (16-61); Albumin, Serum 3.7 g/dL (3.2-5.0); Alkaline Phosphatase 76 U/L (45-117); Anion Gap 3 (5-15); BUN 25 mg/dL (7-18); BUN/Creat Ratio 24.3 RATIO (10-20); Calcium,Total 8.7 mg/dL (8.5-10.1); Chloride 107 mmol/L (98-107); Cholesterol 195 mg/dL (200); Creatinine, Serum 1.03 mg/dL (0.70-1.30); EST Glomerular Filtration Rate 75 mL/min (>60); Est Glom Filt Rate - Afr Amer 91 mL/min (>60); Globulin 3.5 g/dL (2.2-4.2); Glucose 89 mg/dL (74-106); High Density Lipoprotein 55 mg/dL; Potassium 4.1 mmol/L (3.5-5.1); Protein, Total 7.2 g/dL (6.4-8.2); Sodium Level 138 mmol/L (136-145); Triglycerides 83 mg/dL; Very Low Density Lipoprotein 17 mg/dL (5-40)
[2023-03-11 10:27] LABS: PSA,Total- Diagnostic 1.02 ng/mL (0.0-4.0)
== END | disposition home or self-care (01) ==
LOC: MTLAB 08:02
PROVIDERS: Student in an Organized Health Care Education/Training Program; PCP Family Medicine; Referring Provider Family Medicine; Visit Provider Family Medicine
DX: E78.5 Hyperlipidemia, unspecified (principal); Z85.46 Personal history of malignant neoplasm of prostate
CPT/HCPCS: 36415; 80053; 80061; 84153; 85025

== ENCOUNTER → 2023-03-23 | Outpatient (CLI) | payer MEDICARE, OTHER, SELFPAY ==
--- NOTE | 2023-03-23 17:29 | STRESSREP_ITS ---
Stress Test Report Exercise myocardial perfusion stress test. 72-year-old man with a history of chest pain Stress protocol: Resting EKG demonstrates sinus bradycardia with a rate of 44 bpm resting blood pressure is 130/80 mmHg. The patient exercised according to the regular Bang protocol for a total duration of 10 minutes attaining a maximum heart rate of 1 26 bpm which was 85% of maximum predicted heart rate; the maximum workload was 13.3 metabolic equivalents. At rest there were no ST or T wave changes noted to suggest ischemia and at peak exercise upsloping ST changes only were noted which did not meet the criteria for ischemia. No clinical angina was noted the test was terminated due to the target heart rate being achieved/fatigue. The peak bl ood pressure was 200/70 mmHg. Rate-pressure product was 17,500. Myocardial perfusion protocol. 14.4 mCi of technetium 99m sestamibi was injected at rest. The patient exercised according to regular Bang protocol for total duration of 10 minutes and at peak exercise 44.3 mCi of technetium 99m sestamibi was injected stress images were obtained stress and rest images were reconstructed in comparing the short axis vertical long and horizontal long axis. Gated images were also obtained. Perfusion SPECT analysis: Review of the stress images demonstrate normal uptake of tracer noted in all areas of the myocardium. The resting images similarly demonstrate normal uptake of tracer noted in all areas of the myocardium. No areas of reversibility are noted to suggest ischemia no previous infarct was noted. Gated SPECT analysis: The gated ejection fraction is 64%. Conclusion: Normal exercise myocardial perfusion stress test at a high workload Preserved ejection fraction.
== END | disposition home or self-care (01) ==
LOC: CVS 06:48
PROVIDERS: PCP Family Medicine; Referring Provider Physician Assistant Medical; Visit Provider Physician Assistant Medical
DX: R07.9 Chest pain, unspecified (principal)
CPT/HCPCS: 78452; 93017; A9500; A4216

== ENCOUNTER → 2023-03-31 | Outpatient (CLI) | payer MEDICARE, OTHER, SELFPAY ==
--- NOTE | 2023-03-31 07:53 | CDU_ITS ---
Reason For Study: occlusion and stenosis of bilateral carotid arteries Rt. Velocities/BP Lt. Velocities/BP Prox CCA 83.4/10.7 cm/sec. Prox CCA 103.5/12.6 cm/sec. Mid CCA 91.9/11.6 cm/sec. Mid CCA 77.7/12.6 cm/sec. Dist CCA 72.1/9.7 cm/sec. Dist CCA 65.2/12.4 cm/sec. Prox ICA 47.5/10.7 cm/sec. Prox ICA 60.8/15.7 cm/sec. Mid ICA 86.3/19.2 cm/sec. Mid ICA 81.7/20.1 cm/sec. Dist ICA 69.2/15.4 cm/sec. Dist ICA 70.7/21.2 cm/sec. Rt. ICA/CCA = .9. Lt. ICA/CCA = 1.1. Prox ECA 86.3/8.8 cm/sec. Prox ECA 70.7/8.0 cm/sec. Rt. Vert. 57.9/10.7 cm/sec. Lt. Vert. 49.4/10.7 cm/sec. Right Extracranial There is homogeneous, smooth atherosclerotic plaque noted in the right common carotid artery. There is heterogeneous, irregular atherosclerotic plaque noted in the right internal carotid artery. There is heterogeneous, irregular atherosclerotic plaque noted in the right external carotid artery. Antegrade flow is noted in the right vertebral artery. Left Extracranial There is homogeneous, smooth atherosclerotic plaque noted in the left common carotid artery. There is heterogeneous, irregular atherosclerotic plaque noted in the left internal carotid artery. There is heterogeneous, irregular atherosclerotic plaque noted in the left external carotid artery. Antegrade flow is noted in the left vertebral artery. Procedure Carotid Duplex 78821. This is a Carotid Duplex examination using B-mode, color flow and specral Doppler. The exam was diagnostic. Exam performed in department. VL/Carotid Duplex Ultrasound Interpretation Summary Mild (<50%) stenosis right extracranial internal carotid. Mild (<50%) stenosis left extracranial internal carotid. Patent and antegrade vertebrals bilaterally. Ordering Physician: Lawrence Wilson Performed By: George Bravo RVT
== END | disposition home or self-care (01) ==
LOC: CVS 07:52
PROVIDERS: PCP Family Medicine; Referring Provider Family Medicine; Visit Provider Family Medicine
DX: I65.23 Occlusion and stenosis of bilateral carotid arteries (principal)
CPT/HCPCS: 93880

== ENCOUNTER → 2023-09-19 | Outpatient (CLI) | payer MEDICARE, OTHER, SELFPAY ==
[2023-09-19 10:17] LABS: Absolute Lymphocyte Count 1.28 X10^3/uL (0.83-4.51); Absolute Neutrophil Count 2.3 X10^3/uL (2.0-7.7); Basophil# 0.05 X10^3/uL; Basophil% 1.1 % (0-1); Eosinophil# 0.17 X10^3/uL; Eosinophils% 3.9 % (0-5); Hematocrit 40.9 % (40-54); Hemoglobin 13.4 g/dL (13.0-16.5); Lymphocyte # 1.28 X10^3/ul (0.83-4.51); Lymphocyte % 29.4 % (19-41); Mean Corp Hgb Conc 32.8 g/dL (32-36); Mean Corpuscular Volume 91.7 fL (80-94); Mean Platelet Vol. 10.7 fl (6.2-12.0); Monocyte# 0.55 X10^3/uL; Monocyte% 12.6 % (0-10); NRBC Flagged by Analyzer 0 % (0-5); Neutrophil # 2.29 X10^3/uL (2.7-7.7); Neutrophil % 52.8 % (47-70); Platelet Count 233 K/mm3 (150-450); RBC Distribution Width CV 13.3 % (11.6-14.6); Red Blood Count 4.46 M/mm3 (4.6-6.2); White Blood Count 4.4 K/mm3 (4.4-11.0)
[2023-09-19 11:01] LABS: ALB/GLOB Ratio 0.9 RATIO (0.9-2.4); AST(SGOT) 20 U/L (15-37); Alanine Aminotransfer ALT/SGPT 32 U/L (16-61); Albumin, Serum 3.6 g/dL (3.2-5.0); Alkaline Phosphatase 78 U/L (45-117); Anion Gap 5 (5-15); BUN 30 mg/dL (7-18); Calcium,Total 8.9 mg/dL (8.5-10.1); Chloride 108 mmol/L (98-107); Cholesterol 165 mg/dL (200); Creatinine, Serum 1.07 mg/dL (0.70-1.30); EST Glomerular Filtration Rate 72 mL/min (>60); Est Glom Filt Rate - Afr Amer 87 mL/min (>60); Globulin 3.8 g/dL (2.2-4.2); Glucose 95 mg/dL (74-106); High Density Lipoprotein 51 mg/dL; Potassium 4.3 mmol/L (3.5-5.1); Protein, Total 7.4 g/dL (6.4-8.2); Sodium Level 139 mmol/L (136-145); Triglycerides 97 mg/dL; Very Low Density Lipoprotein 19 mg/dL (5-40)
== END | disposition home or self-care (01) ==
PROVIDERS: Student in an Organized Health Care Education/Training Program; PCP Family Medicine; Referring Provider Family Medicine; Visit Provider Family Medicine
DX: I25.10 Atherosclerotic heart disease of native coronary artery without angina pectoris (principal); Z85.46 Personal history of malignant neoplasm of prostate
CPT/HCPCS: 36415; 80053; 80061; 84153; 85025

== ENCOUNTER → 2023-09-26 | Outpatient (CLI) | payer MEDICARE, OTHER, SELFPAY ==
--- NOTE | 2023-09-26 11:21 | US_ITS ---
EXAM: US ABDOMEN LIMITED, bladder. CLINICAL INDICATION: urinary retention TECHNIQUE: Real-time ultrasound of the urinary bladder with image documentation. COMPARISON: CT pelvis, 09/06/2017. FINDINGS: BLADDER: The prevoid urinary bladder volume is 203 mL. Bilateral ureteral jets are identified. The post void bladder volume is 10 mL. No significant thickening of the urinary bladder wall is identified. US/Post Void Residual Bladder IMPRESSION: Normal sonographic appearance of the urinary bladder. Post void bladder volume is 10 mL. Electronically Signed: Gabriele Escalante DO at 20:24 EST ,
== END | disposition home or self-care (01) ==
LOC: US 11:14
PROVIDERS: PCP Family Medicine; Referring Provider Family Medicine; Visit Provider Family Medicine
DX: R33.9 Retention of urine, unspecified (principal)
CPT/HCPCS: 51798

== ENCOUNTER → 2023-12-02 | Outpatient (CLI) | payer MEDICARE, OTHER, SELFPAY ==
--- NOTE | 2023-12-02 10:59 | RAD_ITS ---
INDICATION: DYSPNEA EXAMINATION/TECHNIQUE: X-RAY - XR Chest 2 Views COMPARISON: Prior study dated: 07/22/2021. FINDINGS: LINES/DEVICES: None. LUNGS: No consolidation, edema or effusion. No pneumothorax. MEDIASTINUM AND CARDIOVASCULAR STRUCTURES: Cardiac silhouette not enlarged. Central airways and mediastinal contour are unremarkable. BONES AND SOFT TISSUES: Unremarkable. RAD/Chest PA and Lateral IMPRESSION: No radiographic evidence of acute cardiopulmonary disease. Electronically Signed: Sohail Florentino MD at 11:44 EST ,
== END | disposition home or self-care (01) ==
LOC: MTRAD 10:57
PROVIDERS: PCP Family Medicine; Referring Provider Internal Medicine Pulmonary Disease; Visit Provider Internal Medicine Pulmonary Disease
DX: R06.00 Dyspnea, unspecified (principal)
CPT/HCPCS: 71046

== ENCOUNTER → 2024-01-12 | Outpatient (CLI) | payer MEDICARE, OTHER, SELFPAY ==
[2024-01-12 09:48] LABS: Absolute Lymphocyte Count 1.33 X10^3/uL (0.83-4.51); Absolute Neutrophil Count 2.4 X10^3/uL (2.0-7.7); Basophil# 0.05 X10^3/uL; Basophil% 1.1 % (0-1); Eosinophil# 0.22 X10^3/uL; Eosinophils% 4.9 % (0-5); Hematocrit 41.5 % (40-54); Lymphocyte # 1.33 X10^3/ul (0.83-4.51); Lymphocyte % 29.6 % (19-41); Mean Corp Hgb Conc 33.7 g/dL (32-36); Mean Corpuscular Volume 91.8 fL (80-94); Mean Platelet Vol. 10.3 fl (6.2-12.0); Monocyte# 0.52 X10^3/uL; Monocyte% 11.6 % (0-10); NRBC Flagged by Analyzer 0 % (0-5); Neutrophil # 2.37 X10^3/uL (2.7-7.7); Neutrophil % 52.6 % (47-70); Platelet Count 248 K/mm3 (150-450); RBC Distribution Width CV 13.8 % (11.6-14.6); RBC Distribution Width SD 46.8 fl (35.1-43.9); Red Blood Count 4.52 M/mm3 (4.6-6.2); White Blood Count 4.5 K/mm3 (4.4-11.0)
[2024-01-12 10:46] LABS: ALB/GLOB Ratio 1.1 RATIO (0.9-2.4); AST(SGOT) 19 U/L (15-37); Alanine Aminotransfer ALT/SGPT 31 U/L (16-61); Alkaline Phosphatase 81 U/L (45-117); Anion Gap 2 (5-15); BUN 22 mg/dL (7-18); BUN/Creat Ratio 19.8 RATIO (10-20); Chloride 108 mmol/L (98-107); Cholesterol 231 mg/dL (200); Creatinine, Serum 1.11 mg/dL (0.70-1.30); EST Glomerular Filtration Rate 69 mL/min (>60); Est Glom Filt Rate - Afr Amer 83 mL/min (>60); Globulin 3.7 g/dL (2.2-4.2); Glucose 97 mg/dL (74-106); High Density Lipoprotein 60 mg/dL; Potassium 4.2 mmol/L (3.5-5.1); Protein, Total 7.7 g/dL (6.4-8.2); Sodium Level 139 mmol/L (136-145); Triglycerides 84 mg/dL; Very Low Density Lipoprotein 17 mg/dL (5-40)
== END | disposition home or self-care (01) ==
LOC: MFPLAB 08:36
PROVIDERS: PCP Family Medicine; Visit Provider Family Medicine
DX: I25.10 Atherosclerotic heart disease of native coronary artery without angina pectoris (principal)
CPT/HCPCS: 36415; 80053; 80061; 85025

== ENCOUNTER → 2024-01-25 | Outpatient (CLI) | payer MEDICARE, OTHER, SELFPAY ==
--- NOTE | 2024-01-25 07:55 | CDU_ITS ---
Reason For Study: Carotid Artery Stenosis Rt. Velocities/BP Lt. Velocities/BP Prox CCA 117.7/12.3 cm/sec. Prox CCA 121.1/18.8 cm/sec. Mid CCA 94.1/13.0 cm/sec. Mid CCA 89.7/16.0 cm/sec. Dist CCA 82.1/13.4 cm/sec. Dist CCA 54.5/14.9 cm/sec. Prox ICA 69.9/18.2 cm/sec. Prox ICA 62.2/18.2 cm/sec. Mid ICA 98.5/28.1 cm/sec. Mid ICA 83.3/24.8 cm/sec. Dist ICA 74.3/21.5 cm/sec. Dist ICA 97.9/30.3 cm/sec. Rt. ICA/CCA = 1.0. Lt. ICA/CCA = 1.1. Prox ECA 114.9/7.1 cm/sec. Prox ECA 90.4/9.3 cm/sec. Rt. Vert. 51.8/12.3 cm/sec. Lt. Vert. 48.8/10.4 cm/sec. Right Extracranial There is homogeneous, smooth atherosclerotic plaque noted in the right common carotid artery. There is heterogeneous, irregular atherosclerotic plaque noted in the right internal carotid artery. There is heterogeneous, irregular atherosclerotic plaque noted in the right external carotid artery. Antegrade flow is noted in the right vertebral artery. Left Extracranial There is homogeneous, smooth atherosclerotic plaque noted in the left common carotid artery. There is homogeneous, smooth atherosclerotic plaque noted in the left internal carotid artery. There is heterogeneous, irregular atherosclerotic plaque noted in the left external carotid artery. Antegrade flow is noted in the left vertebral artery. Procedure Carotid Duplex [id number]. This is a Carotid Duplex examination using B-mode, color flow and specral Doppler. The exam was diagnostic. Exam performed in department. VL/Carotid Duplex Ultrasound Interpretation Summary Mild (<50%) stenosis right extracranial internal carotid. Mild (<50%) stenosis left extracranial internal carotid. Patent and antegrade vertebrals bilaterally. Ordering Physician: Lawrence Wilson Referring Physician: Lawrence Wilson Performed By: Raul Mir RVT
== END | disposition home or self-care (01) ==
LOC: CVS 07:54
PROVIDERS: PCP Family Medicine; Referring Provider Family Medicine; Visit Provider Family Medicine
DX: I65.23 Occlusion and stenosis of bilateral carotid arteries (principal)
CPT/HCPCS: 93880

== ENCOUNTER → 2024-03-26 | Outpatient (CLI) | payer MEDICARE, OTHER, SELFPAY ==
[2024-03-26 10:18] LABS: Absolute Lymphocyte Count 1.32 X10^3/uL (0.83-4.51); Absolute Neutrophil Count 2.5 X10^3/uL (2.0-7.7); Basophil# 0.05 X10^3/uL; Basophil% 1.1 % (0-1); Eosinophil# 0.16 X10^3/uL; Eosinophils% 3.4 % (0-5); Hematocrit 39.7 % (40-54); Hemoglobin 13.2 g/dL (13.0-16.5); Lymphocyte # 1.32 X10^3/ul (0.83-4.51); Lymphocyte % 28.4 % (19-41); Mean Corp Hgb Conc 33.2 g/dL (32-36); Mean Corpuscular Hgb 30.2 pg (27.0-32.0); Mean Corpuscular Volume 90.8 fL (80-94); Mean Platelet Vol. 10.7 fl (6.2-12.0); Monocyte# 0.59 X10^3/uL; Monocyte% 12.7 % (0-10); NRBC Flagged by Analyzer 0 % (0-5); Neutrophil # 2.51 X10^3/uL (2.7-7.7); Neutrophil % 54.2 % (47-70); Platelet Count 245 K/mm3 (150-450); RBC Distribution Width CV 13.7 % (11.6-14.6); RBC Distribution Width SD 45.6 fl (35.1-43.9); Red Blood Count 4.37 M/mm3 (4.6-6.2); White Blood Count 4.6 K/mm3 (4.4-11.0)
[2024-03-26 10:43] LABS: PSA,Total- Diagnostic 1.44 ng/mL (0.0-4.0)
[2024-03-26 11:13] LABS: AST(SGOT) 24 U/L (15-37); Alanine Aminotransfer ALT/SGPT 31 U/L (16-61); Albumin, Serum 3.6 g/dL (3.2-5.0); Alkaline Phosphatase 82 U/L (45-117); Anion Gap 5 (5-15); BUN 28 mg/dL (7-18); BUN/Creat Ratio 25.7 RATIO (10-20); Chloride 108 mmol/L (98-107); Cholesterol 228 mg/dL (200); Creatinine, Serum 1.09 mg/dL (0.70-1.30); EST Glomerular Filtration Rate 70 mL/min (>60); Est Glom Filt Rate - Afr Amer 85 mL/min (>60); Globulin 3.6 g/dL (2.2-4.2); Glucose 94 mg/dL (74-106); High Density Lipoprotein 55 mg/dL; Potassium 4.3 mmol/L (3.5-5.1); Protein, Total 7.2 g/dL (6.4-8.2); Sodium Level 137 mmol/L (136-145); Triglycerides 110 mg/dL; Very Low Density Lipoprotein 22 mg/dL (5-40)
== END | disposition home or self-care (01) ==
LOC: MTLAB 07:43
PROVIDERS: PCP Family Medicine; Referring Provider Student in an Organized Health Care Education/Training Program; Visit Provider Student in an Organized Health Care Education/Training Program
DX: I25.10 Atherosclerotic heart disease of native coronary artery without angina pectoris (principal); Z85.46 Personal history of malignant neoplasm of prostate
CPT/HCPCS: 36415; 80053; 80061; 84153; 85025

== ENCOUNTER 2024-03-28 09:13 | Outpatient (CLI) | payer MEDICARE, OTHER, SELFPAY ==
[2024-03-29 14:09] LABS: Lyme Scn Total Ab w/Rflx Negative (Negative)
== END 2024-03-28 23:59 | disposition home or self-care (01) ==
LOC: MFPLAB 09:14
PROVIDERS: PCP Family Medicine; Visit Provider Family Medicine
DX: R22.9 Localized swelling, mass and lump, unspecified (principal); W57.XXXA Bitten or stung by nonvenomous insect and other nonvenomous arthropods, initial encounter
CPT/HCPCS: 36415; 86618

== ENCOUNTER → 2024-09-24 | Outpatient (CLI) | payer MEDICARE, OTHER, SELFPAY ==
[2024-09-24 10:15] LABS: Absolute Lymphocyte Count 1.25 X10^3/uL (0.83-4.51); Basophil# 0.05 X10^3/uL; Eosinophil# 0.21 X10^3/uL; Eosinophils% 4.1 % (0-5); Hematocrit 40.4 % (40-54); Hemoglobin 13.4 g/dL (13.0-16.5); Lymphocyte # 1.25 X10^3/ul (0.83-4.51); Lymphocyte % 24.4 % (19-41); Mean Corp Hgb Conc 33.2 g/dL (32-36); Mean Corpuscular Hgb 30.2 pg (27.0-32.0); Mean Platelet Vol. 10.6 fl (6.2-12.0); Monocyte# 0.63 X10^3/uL; Monocyte% 12.3 % (0-10); NRBC Flagged by Analyzer 0 % (0-5); Neutrophil # 2.98 X10^3/uL (2.7-7.7); Platelet Count 236 K/mm3 (150-450); RBC Distribution Width CV 13.8 % (11.6-14.6); RBC Distribution Width SD 46.2 fl (35.1-43.9); Red Blood Count 4.44 M/mm3 (4.6-6.2); White Blood Count 5.1 K/mm3 (4.4-11.0)
[2024-09-24 10:26] LABS: PSA,Total- Diagnostic 0.85 ng/mL (0.0-4.0)
[2024-09-24 10:39] LABS: ALB/GLOB Ratio 1.1 RATIO (0.9-2.4); AST(SGOT) 15 U/L (15-37); Alanine Aminotransfer ALT/SGPT 27 U/L (16-61); Albumin, Serum 3.8 g/dL (3.2-5.0); Alkaline Phosphatase 75 U/L (45-117); Anion Gap 6 (5-15); BUN 25 mg/dL (7-18); Calcium,Total 8.9 mg/dL (8.5-10.1); Chloride 109 mmol/L (98-107); Cholesterol 175 mg/dL (200); Creatinine, Serum 1.04 mg/dL (0.70-1.30); EST Glomerular Filtration Rate 74 mL/min (>60); Est Glom Filt Rate - Afr Amer 90 mL/min (>60); Globulin 3.4 g/dL (2.2-4.2); Glucose 93 mg/dL (74-106); High Density Lipoprotein 60 mg/dL; Potassium 4.2 mmol/L (3.5-5.1); Protein, Total 7.2 g/dL (6.4-8.2); Sodium Level 140 mmol/L (136-145); Triglycerides 95 mg/dL; Very Low Density Lipoprotein 19 mg/dL (5-40)
== END | disposition home or self-care (01) ==
LOC: MTLAB 07:26
PROVIDERS: PCP Family Medicine; Referring Provider Student in an Organized Health Care Education/Training Program; Visit Provider Student in an Organized Health Care Education/Training Program
DX: I25.10 Atherosclerotic heart disease of native coronary artery without angina pectoris (principal); C61 Malignant neoplasm of prostate
CPT/HCPCS: 36415; 80053; 80061; 84153; 85025

== ENCOUNTER → 2025-01-02 | Outpatient (CLI) | payer MEDICARE, OTHER, SELFPAY ==
[2025-01-02 10:23] LABS: Absolute Lymphocyte Count 1.04 X10^3/uL (0.83-4.51); Absolute Neutrophil Count 2.8 X10^3/uL (2.0-7.7); Basophil# 0.04 X10^3/uL; Basophil% 0.9 % (0-1); Eosinophil# 0.17 X10^3/uL; Eosinophils% 3.7 % (0-5); Hemoglobin 12.5 g/dL (13.0-16.5); Lymphocyte # 1.04 X10^3/ul (0.83-4.51); Lymphocyte % 22.4 % (19-41); Mean Corp Hgb Conc 32.1 g/dL (32-36); Mean Corpuscular Hgb 29.3 pg (27.0-32.0); Mean Corpuscular Volume 91.5 fL (80-94); Mean Platelet Vol. 11.2 fl (6.2-12.0); Monocyte# 0.56 X10^3/uL; Monocyte% 12.1 % (0-10); NRBC Flagged by Analyzer 0 % (0-5); Neutrophil # 2.82 X10^3/uL (2.7-7.7); Neutrophil % 60.7 % (47-70); Platelet Count 202 K/mm3 (150-450); RBC Distribution Width CV 13.6 % (11.6-14.6); RBC Distribution Width SD 45.7 fl (35.1-43.9); Red Blood Count 4.26 M/mm3 (4.6-6.2); White Blood Count 4.6 K/mm3 (4.4-11.0)
[2025-01-02 10:45] LABS: ALB/GLOB Ratio 0.9 RATIO (0.9-2.4); AST(SGOT) 17 U/L (15-37); Alanine Aminotransfer ALT/SGPT 26 U/L (16-61); Albumin, Serum 3.5 g/dL (3.2-5.0); Alkaline Phosphatase 70 U/L (45-117); Anion Gap 5 (5-15); BUN 25 mg/dL (7-18); Calcium,Total 9.1 mg/dL (8.5-10.1); Chloride 109 mmol/L (98-107); Cholesterol 150 mg/dL (200); Creatinine, Serum 1.04 mg/dL (0.70-1.30); EST Glomerular Filtration Rate 74 mL/min (>60); Est Glom Filt Rate - Afr Amer 90 mL/min (>60); Globulin 3.7 g/dL (2.2-4.2); Glucose 90 mg/dL (74-106); High Density Lipoprotein 53 mg/dL; Magnesium 2.2 mg/dL (1.6-2.6); Potassium 4.1 mmol/L (3.5-5.1); Protein, Total 7.2 g/dL (6.4-8.2); Sodium Level 140 mmol/L (136-145); Triglycerides 114 mg/dL; Very Low Density Lipoprotein 23 mg/dL (5-40)
[2025-01-02 18:20] LABS: Color, Urine Yellow (Yellow); Glucose, Dipstick Normal (Normal); Ketone-Dipstick Negative (Negative); Leukocyte Esterase-Dipstick Negative /ul (Negative); Nitrite-Dipstick Negative (Negative); Occult Blood-Urine Negative /ul (Negative); Protein-Dipstick Negative (Negative); Urine Bilirubin Dipstick Negative (Negative); Urine Clarity Clear (Clear); Urine Urobilinogen Normal (Normal)
[2025-01-02 18:36] LABS: Bacteria 1+ /hpf (None Seen); Mucous, Urine 1+ /hpf (<or=2+); Red Blood Cells-Urine 0 SEEN /hpf (0-5); Squamous Epithelial Cells - UA 0-5 SEEN /hpf (0-5); White Blood Cells 0-5 SEEN /hpf (0-5)
[2025-01-03 15:05] LABS: Ferritin 55 ng/mL (26-388); Iron 70 ug/dL (65-175); Iron Binding Capacity,Total 315 ug/dL (250-450); PERCENT IRON SATURATION 22.2 % (15.0-55.0)
[2025-01-03 15:09] LABS: Vitamin B12 495 pg/mL (211-911)
== END | disposition home or self-care (01) ==
LOC: MFPLAB 08:28
PROVIDERS: PCP Family Medicine; Referring Provider Family Medicine; Visit Provider Family Medicine
DX: D64.9 Anemia, unspecified (principal); I25.10 Atherosclerotic heart disease of native coronary artery without angina pectoris; I10 Essential (primary) hypertension
CPT/HCPCS: 36415; 80053; 80061; 81001; 82607; 82728; 83540; 83550; 83735; 84443; 85025

== ENCOUNTER → 2025-02-01 | Outpatient (CLI) | payer MEDICARE, OTHER, SELFPAY ==
--- NOTE | 2025-02-01 06:27 | ECHOD_ITS ---
Reason For Study Reason For Study: SOB on exertion Procedure This was a 2D Doppler, Color Flow transthoracic echocardiogram. Exam performed in department. Left Ventricle Normal LV size. Left ventricular systolic function is normal. The left ventricular ejection fraction is 60 %. No regional wall motion abnormalities noted. Right Ventricle Normal RV size. Normal systolic function. Atria Normal left atrium. Normal right atrium. Mitral Valve Normal mitral valve. Mild (1+) eccentric mitral valve insufficiency. Tricuspid Valve Normal tricuspid valve. Aortic Valve Normal aortic valve. Trisinus/trileaflet aortic valve. Pulmonic Valve Normal pulmonic valve. Great Vessels Normal aortic root. The pulmonary artery is normal size. Inferior vena cava collapse with respiration. Pericardium/Pleural No pericardial effusion. MMode/2D Measurements & Calculations LVIDd: 4.0 cm IVSd: 1.4 cm Ao root diam: 3.7 cm LVIDs: 2.7 cm LVPWd: 1.1 cm RVDd: 4.1 cm FS: 31.5 % LAV(MOD-bp): 56.4 ml LVAd ap4: 28.1 cm2 SV(MOD-sp4): 50.0 ml LAV(MOD-bp) Indexed: 25.7 ml/m2 LVLd ap4: 7.5 cm SI(MOD-sp4): 22.8 ml/m2 LAV(MOD-sp2): 62.8 ml EDV(MOD-sp4): 86.4 ml LAV(MOD-sp4): 46.3 ml EDV(sp4-el): 89.1 ml LVAs ap4: 16.4 cm2 LVLs ap4: 6.3 cm ESV(MOD-sp4): 36.4 ml ESV(sp4-el): 36.5 ml EF(MOD-sp4): 57.8 % EF(sp4-el): 59.0 % SV(sp4-el): 52.5 ml LA A4 area: 17.1 cm2 LA dimension(2D): 3.6 cm RA A4 area: 16.7 cm2 TAPSE: 2.3 cm Time Measurements MV dec time: 0.24 sec Doppler Measurements & Calculations MV E max lj: 72.2 cm/sec Lat Peak E' Lj: 11.7 cm/sec Med Peak E' Lj: 10.9 cm/sec MV A max lj: 67.8 cm/sec E/E' lat: 6.2 E/E' med: 6.6 MV E/A: 1.1 MV V2 max: 70.2 cm/sec MV P1/2t max lj: 69.5 cm/sec Ao V2 max: 125.3 cm/sec MV max P.0 mmHg MV P1/2t: 74.0 msec Ao max P.3 mmHg MV V2 mean: 34.7 cm/sec Ao V2 mean: 82.1 cm/sec MV mean P.58 mmHg MV dec slope: 275.0 cm/sec2 Ao mean P.2 mmHg MV V2 VTI: 30.3 cm MVA(P1/2t): 3.0 cm2 Ao V2 VTI: 31.2 cm AV (velocity ratio): 0.94 LV V1 max: 116.0 cm/sec PA V2 max: 121.8 cm/sec PI end-d lj: 109.6 cm/sec LV V1 max P.4 mmHg LV V1 mean P.7 mmHg LV V1 mean: 76.5 cm/sec LV V1 VTI: 29.4 cm TR max lj: 229.7 cm/sec TR max P.1 mmHg ECHO/Echo Complete Interpretation Summary Normal LV size. Left ventricular systolic function is normal. The left ventricular ejection fraction is 60 %. Mild (1+) eccentric mitral valve insufficiency. Ordering Physician: Lawrence Wilson Referring Physician: Lawrence Wilson Performed By: Amadeo Valdez RCS
--- NOTE | 2025-02-01 09:03 | STRESSREP_ITS ---
Stress Test Report Exercise myocardial perfusion stress test. 74-year-old man with a history of coronary disease Stress protocol: Resting EKG demonstrates sinus bradycardia with a rate of 46 bpm resting blood pressure is 150/74 mmHg. The patient exercised according to the regular Bang protocol for a total duration of 6 minutes and 26 seconds attaining a maximum heart rate of 125 bpm which was 86% of maximum predicted heart rate; the maximum workload was 8.2 metabolic equivalents. At rest there were no ST or T wave changes noted to suggest ischemia and at peak exercise upsloping ST changes only were noted which did not meet the criteria for ischemia. No clinical angina was noted the test was terminated due to the target heart rate being achieved/fa tigue. The peak blood pressure was 184/60 mmHg. Rate-pressure product was 18,800. Myocardial perfusion protocol. 13.9 mCi of technetium 99m sestamibi was injected at rest. The patient exercised according to regular Bang protocol for total duration of 6 minutes and 26 and at peak exercise 40.3 mCi of technetium 99m sestamibi was injected stress images were obtained stress and rest images were reconstructed in comparing the short axis vertical long and horizontal long axis. Gated images were also obtained. Perfusion SPECT analysis: Review of the stress images demonstrate normal uptake of tracer noted in all areas of the myocardium except for small area in the mid anterior wall with reduced perfusion. The resting images similarly demonstrate normal uptake of tracer noted in all areas of the myocardium. The above is suggestive of mid anterior wall ischemia. Gated SPECT analysis: The gated ejection fraction is 68%. Conclusion: Abnormal exercise myocardial perfusion stress test at a moderate workload Preserved ejection fraction. Moderate mid anterior ischemia
--- NOTE | 2025-02-01 09:04 | CDU_ITS ---
Reason For Study Reason For Study: Carotid stenosis Rt. Velocities/BP Lt. Velocities/BP Prox CCA 94.5/6.5 cm/sec. Prox CCA 106.0/18.2 cm/sec. Mid CCA 79.4/11.1 cm/sec. Mid CCA 60.5/11.4 cm/sec. Dist CCA 70.0/11.5 cm/sec. Dist CCA 64.5/8.8 cm/sec. Prox ICA 54.2/12.4 cm/sec. Prox ICA 46.6/8.8 cm/sec. Mid ICA 82.8/21.2 cm/sec. Mid ICA 60.8/14.6 cm/sec. Dist ICA 75.1/15.7 cm/sec. Dist ICA 54.2/13.5 cm/sec. Rt. ICA/CCA = 1.0. Lt. ICA/CCA = 1.0. Prox ECA 84.6/9.7 cm/sec. Prox ECA 66.4/6.9 cm/sec. Rt. Vert. 48.7/11.3 cm/sec. Lt. Vert. 46.5/10.2 cm/sec. Right Extracranial There is homogeneous, smooth atherosclerotic plaque noted in the right common carotid artery. There is heterogeneous, irregular atherosclerotic plaque noted in the right internal carotid artery. There is homogeneous, smooth atherosclerotic plaque noted in the right external carotid artery. Antegrade flow is noted in the right vertebral artery. Left Extracranial There is intimal thickening but no significant atherosclerotic plaque noted in the left common carotid artery. There is heterogeneous, irregular atherosclerotic plaque noted in the left internal carotid artery. There is heterogeneous, irregular atherosclerotic plaque noted in the left external carotid artery. Antegrade flow is noted in the left vertebral artery. Procedure Carotid Duplex [id number]. This is a Carotid Duplex examination using B-mode, color flow and specral Doppler. Exam performed in department. VL/Carotid Duplex Ultrasound Interpretation Summary Mild (<50%) stenosis right extracranial internal carotid. Mild (<50%) stenosis left extracranial internal carotid. Flow within the vertebral arteries is antegrade bilaterally. Ordering Physician: Lawrence Wilson Referring Physician: Lawrence Wilson Performed By: Mary Stallings
== END | disposition home or self-care (01) ==
LOC: CVS 06:25
PROVIDERS: PCP Family Medicine; Referring Provider Family Medicine; Visit Provider Family Medicine
DX: I65.23 Occlusion and stenosis of bilateral carotid arteries (principal); R06.02 Shortness of breath; I25.10 Atherosclerotic heart disease of native coronary artery without angina pectoris
CPT/HCPCS: 78452; 93017; 93306; 93880; A9500; A4216

== ENCOUNTER → 2025-02-06 | Outpatient (CLI) | payer MEDICARE, OTHER, SELFPAY ==
--- NOTE | 2025-02-06 10:24 | RAD_ITS ---
EXAM: X-ray chest PA and lateral CLINICAL HISTORY: Shortness of breath COMPARISON: 12/02/2023 TECHNIQUE: PA and lateral views of the chest, 2 PA views of the include the entire chest, 3 total images FINDINGS: The lungs are clear. Pulmonary vascularity appears within limits. No pleural effusion. The cardiac and mediastinal contours are within limits. Atherosclerotic calcification at the aortic arch again noted. The visualized osseous structures appear within limits. RAD/Chest PA and Lateral IMPRESSION: No evidence of acute disease. Reading Location: [id number]
[2025-02-06 15:54] LABS: Absolute Lymphocyte Count 1.05 X10^3/uL (0.83-4.51); Absolute Neutrophil Count 3.1 X10^3/uL (2.0-7.7); Basophil# 0.05 X10^3/uL; Eosinophil# 0.12 X10^3/uL; Eosinophils% 2.4 % (0-5); Hematocrit 41.4 % (40-54); Hemoglobin 13.7 g/dL (13.0-16.5); Lymphocyte # 1.05 X10^3/ul (0.83-4.51); Lymphocyte % 21.4 % (19-41); Mean Corp Hgb Conc 33.1 g/dL (32-36); Mean Corpuscular Hgb 30.4 pg (27.0-32.0); Mean Corpuscular Volume 91.8 fL (80-94); Mean Platelet Vol. 11.5 fl (6.2-12.0); Monocyte# 0.54 X10^3/uL; NRBC Flagged by Analyzer 0 % (0-5); Neutrophil # 3.14 X10^3/uL (2.7-7.7); Neutrophil % 64.2 % (47-70); Platelet Count 232 K/mm3 (150-450); RBC Distribution Width CV 13.9 % (11.6-14.6); RBC Distribution Width SD 46.9 fl (35.1-43.9); Red Blood Count 4.51 M/mm3 (4.6-6.2); White Blood Count 4.9 K/mm3 (4.4-11.0)
[2025-02-06 16:02] LABS: International Normalized Ratio 1.1; Prothrombin Time (Protime)PT. 14.4 SECONDS (11.7-14.9)
[2025-02-06 16:03] LABS: Partial Thromboplast Time 26.7 Seconds (24.1-36.2)
[2025-02-06 16:35] LABS: Anion Gap 11 (5-15); BUN 25 mg/dL (4-19); Calcium,Total 9.5 mg/dL (7.6-11.0); Chloride 103 mmol/L (98-108); Creatinine, Serum 1.14 mg/dL (0.70-1.20); EST Glomerular Filtration Rate 67 (>60); Glucose 85 mg/dL (70-99); Potassium 4.7 mmol/L (3.3-5.1); Sodium Level 141 mmol/L (133-145)
== END | disposition home or self-care (01) ==
LOC: MTLAB 10:24
PROVIDERS: PCP Family Medicine; Referring Provider Physician Assistant Medical; Visit Provider Physician Assistant Medical
DX: R94.39 Abnormal result of other cardiovascular function study (principal); R07.9 Chest pain, unspecified
CPT/HCPCS: 36415; 71046; 80048; 85025; 85610; 85730

== ENCOUNTER 2025-02-19 15:36 | Observation (INO) | payer MEDICARE, OTHER, SELFPAY ==
[2025-02-18 12:09] VITALS: BMI 25.3
[2025-02-19] VITALS (8 sets, daily range): BP systolic 139–155; BP diastolic 66–79; PULSE 47–53; RESP 16–18; TEMP 36.6–37.1; O2SAT 97–100
--- NOTE | 2025-02-19 08:28 | CL.D_ITS ---
Patient Name: DARRIUS العراقي Study Date: 02/19/2025 Performing: Michael Freeman MD Ht: 75 inches 190.5 cm : 1950 Wt: 203 lbs 92.08 kg Age: 74 Gender: male BSA: 2.21 PROCEDURE(S) PERFORMED DC01-(55400)LHC/COR/LV CLINICAL PROFILE AND INDICATIONS Indications: Suspected CAD Heart Failure: None Stress/Imaging Date: 02/01/25Stress Test with SPECT MPI: Positive Intermediate Risk CAD Presentations: Stable angina. CONCLUSIONS Severe single-vessel CAD involving the LAD RECOMMENDATIONS Referred for immediate PCI DESCRIPTION OF PROCEDURE The patient arrived to the procedure lab. The risks and benefits of the procedure as well as a full description of our services here and current unavailability of surgical backup were fully explained to the patient and/or their significant other prior to the catheterization. The Timeout was completed, verifying the correct patient and procedure. The patient's procedural site was prepped and draped in the usual fashion. Local anesthetic was given subcutaneously to right radial region with Lidocaine 2%. Using a modified Seldinger technique, arterial access was obtained via the right radial artery, a 6Fr sheath was inserted. Left Coronary Artery selective angiography was performed in multiple views using a 5 Fr. 4.0 [place] catheter. Right Coronary Artery selective angiography was then performed in multiple views using a 5 Fr. 4.0 [place] catheter. Left Ventriculography was performed in RUIZ projection using a 5 Fr. Pigtail catheter. LV to AO pullback pressures were then recorded. CORONARY ANGIOGRAPHY DOMINANCE: Right Dominant LEFT HEART ASSESSMENT Left Ventricular Ejection Fraction: by LV Gram 60 % Normal LV wall motion Normal Left Ventricular systolic function LEFT MAIN: Angiographically normal LEFT ANTERIOR DESCENDING ARTERY: Medium size vessel with a previously placed proximal stent which is patent and immediately after the stent and 90% stenosis noted prior to the takeoff of a diagonal branch. CIRCUMFLEX ARTERY: Mild luminal irregularities less than 30% RIGHT CORONARY ARTERY: Mild luminal irregularities less than 30% COMPLICATIONS PROCEDURE MEDICATIONS Versed 1 mg IV Fentanyl 50 mcg IV Versed 1 mg IV Versed 1 mg IV Oxygen: 2 L/min via nasal cannula Brilinta 180 mg PO @ 02/19/2025 08:15:45 Heparin given IA 02/19/2025 08:00:47 Verapamil 2.5mg, Ntg 100mcgs, 3000 units of Heparin given IA 02/19/2025 08:00:47 SUMMARY OF HEMODYNAMIC DATA Time AIR REST ECG 07:23:40 AO 125/63 (89) SA 08:06:51 LV 124/9, 21 08:14:13 LV 131/10, 19 08:14:21 LV 142/7, 16 08:14:52 LV 122/12, 23 08:15:00 LVp 119/10, 22 08:15:05 AOp 123/55 (83) 08:15:12 Signed By Michael Freeman MD On 02/19/2025 08:28:28 Michael Freeman MD
--- NOTE | 2025-02-19 09:18 | CL.I_ITS ---
Patient Name: DARRIUS العراقي Study Date: 02/19/2025 Performing: Maged Watts MD Ht: 75 inches 190.5 cm : 1950 Wt: 203 lbs 92.08 kg Age: 74 Gender: male BSA: 2.21 PROCEDURE(S) PERFORMED IC12-(47999/C9600)SHERIN W/WO PTCA, SINGLE CORONARY ARTERY CLINICAL PROFILE AND CO-MORBIDITIES Indications: Suspected CAD Heart Failure: None Stress/Imaging Date: 02/01/25 Stress Test with SPECT MPI: Positive Intermediate Risk CAD Presentations: Stable angina. CONCLUSIONS Successful SHERIN Mid LAD using [place] 3.0x15 mm, optimized proximally using 3.5 mm balloon RECOMMENDATIONS ASA Indefinitley P2Y12 inhibitors for atleast 6 months DESCRIPTION OF PROCEDURE The patient arrived to the procedure lab. The risks and benefits of the procedure as well as a full description of our services here and current unavailability of surgical backup were fully explained to the patient and/or their significant other prior to the catheterization. The Timeout was completed, verifying the correct patient and procedure. The patient's procedural site was prepped and draped in the usual fashion. Local anesthetic was given subcutaneously to right radial region with Lidocaine 2% Using a modified Seldinger technique,arterial access was obtained via the right radial artery, a 6Fr sheath was inserted. Left Coronary Artery selective angiography was performed in multiple views using a 5 Fr. 4.0 [place] catheter. Right Coronary Artery selective angiography was then performed in multiple views using a 5 Fr. 4.0 [place] catheter. Left Ventriculography was performed in RUIZ projection using a 5 Fr. Pigtail catheter. LV to AO pullback pressures were then recorded.The images were reviewed and options discussed. A decision was then made to proceed with an Intervention, IVUS or other adjunct procedure. XB 3.0 Guide catheter was inserted and engaged into the LCA. Runthrough Guide wire was advanced to the LAD. [place] 3.0x15 Drug Eluting stent was inserted. [place] Emerge 3.00x12 Balloon catheter was inserted. Angiogram performed post balloon dilatation. Angiogram performed post balloon dilatation. The arterial sheath was pulled and a TR Band was applied for hemostasis INTERVENTION INFORMATION LESION SITE: LAD (Mid) Lesion Complexity: Non-High/Non-C, lesion length: 10 mm, In-stent restenosis: No Pre Stenosis: 90 % Pre intervention BRETT flow: 3 PROCEDURE: Drug Eluting Stent with post dilatation Post Stenosis: 0 % Post intervention BRETT flow: 3 Lesion Devices: Terumo .014 180cm Runthrough Extra Floppy straight Cordis 6 Fr XB3.0 100cm Guide Catheter Medtronic 3.0 x 15 NATHANIEL FRONTIER SHERIN [employer] [place] EMERGE MR 3.00x12 BALLOON [employer] NC EMERGE MR 3.50x12 BALLOON COMPLICATIONS No Complications PROCEDURE MEDICATIONS Versed 1 mg IV Fentanyl 50 mcg IV Versed 1 mg IV Versed 1 mg IV Oxygen: 2 L/min via nasal cannula Brilinta 180 mg PO @ 02/19/2025 08:15:45 Heparin given IA 02/19/2025 08:00:47 Heparin 6000 unit(s) IV 02/19/2025 08:36:25 Heparin 2000 unit(s) IV 02/19/2025 08:47:20 Heparin 2000 unit(s) IV 02/19/2025 09:11:30 Nitro 200 mcg IC 02/19/2025 08:53:36 Verapamil 2.5mg, Ntg 100mcgs, 3000 units of Heparin given IA 02/19/2025 08:00:47 SUMMARY OF HEMODYNAMIC DATA Time AIR REST ECG 07:23:40 AO 125/63 (89) SA 08:06:51 LV 124/9, 21 08:14:13 LV 131/10, 19 08:14:21 LV 142/7, 16 08:14:52 LV 122/12, 23 08:15:00 LVp 119/10, 22 08:15:05 AOp 123/55 (83) 08:15:12 AO 157/75 (105) 08:44:46 AO 120/69 (87) 09:02:46 Signed By Maged Watts MD On 02/19/2025 09:17:51 Maged Watts MD
[2025-02-19 09:34] LABS: ACT Activated Clotting Time 245 sec (74-137)
[2025-02-19] MEDS: 0.9% Normal Saline (1000mL) 1,000 ML 150 ML IV (10:45)
--- NOTE | 2025-02-19 12:49 | CRPHASE1_ITS ---
Patient Communication Patient Information Former Patient:: Phase I PHII Cardiac Rehab Discussed with Patient:: Yes Guide to Cardiac Rehab Given to Patient:: Yes Cardiac Rehab Facility Choice List Given to Patient:: Yes Communication to Cardiac Rehab Choice Program [facility] PHII:: Communication Given to CR Banking Supervisor:: Maged Watts Phase II Cardiac Rehab:: Yes Sessions:: 36 sessions - 3 days/wk, 12 weeks Cardiac Rehabilitation Info Program Information Cardiac Rehabilitation Program Information: Cardiac Rehab The cardiac rehab team at [facility] consists of highly skilled exercise physiologists, nurses, respiratory therapists and physicians working together with you. Our purpose is to help you have a full recovery and achieve the goals you set for yourself. Over the years many of our patients have returned to activities they assumed they would never do again! We can help restore your confidence and motivation to make lifestyle changes that can have a significant impact on your health and quality of life! We can help answer questions and concerns you may have about exercise, lifestyle, medications, diet, stress and anxiety which are common following a hospitalization. WE monitor ECG and vital signs during exercise and discuss your progress with you and report to your physician(s). Cardiac Rehab is proven to help reduce readmissions, improve functional capacity and lower recurrence of problems with your heart. Our Cardiac Rehab program is Certified by the [place] [employer] Pulmonary [employer] (AACVPR) and Accredited by the [place] [employer] through our [facility]. You can contact us at . We invite you to call us with your questions or to get started in our program. If you have other questions or concerns be sure to ask your physician/provider during your follow-up visit. WE look forward to seeing you!
--- NOTE | 2025-02-19 12:49 | CRPH1.INSTRU ---
General Education Discussed with Patient CAD and cardiac anatomy and function:: Patient communicates acknowledgment and Needs reinforcement Explanation of diagnoses and procedures:: Patient communicates acknowledgment and Needs reinforcement Sign/Symptoms of VT:: Patient communicates acknowledgment and Needs reinforcement Antiplatelet therapy: Patient communicates acknowledgment and Needs reinforcement Proper use of NTG-SL: Patient communicates acknowledgment and Needs reinforcement Emergency procedures and activation of EMS: Patient communicates acknowledgment and Needs reinforcement Compliance of all prescribed medications: Patient communicates acknowledgment and Needs reinforcement Dyslipidemia Risk Factors Patient Dyslipidemia Risk Factors Are:: Total Cholesterol, Triglycerides, HDL and LDL Recommendations Recommendations Include:: Lipid profile not available Response Code Dyslipidemia Response Code:: Patient communicates acknowledgment and Needs reinforcement Hypertension Recommendations Recommendations Include:: Maintain BP <130/85 and Decrease/maintain normal body weight Response Code Hypertension:: Patient communicates acknowledgment and Needs reinforcement Heart Disease Risk Factors Patient Heart Disease Risk Factors Are:: Previous cardiac event Recommendations Recommendations Include:: Educated family members of their risk and Educated family members of importance of prevention of heart disease Response Code Heart Disease Response Code:: Patient communicates acknowledgment and Needs reinforcement Sedentary Risk Factors Patient Sedentary Risk Factors Are:: Lack of regular exercise Recommendations Recommendations Include:: Aerobic exercise 5-7 times/week for 20-30 minutes continuously, Benefits of regular exercise, Discussed home walking program and Monitored Outpatient Cardiac Rehab Response Code Sedentary Response Code:: Patient communicates acknowledgment and Needs reinforcement
[2025-02-19] MEDS: Clopidogrel Bisulfate 300 MG Tablet PO (14:42)
[2025-02-19] MEDS: Meloxicam 15 MG Tablet PO (21:15)
[2025-02-19] MEDS: Ezetimibe 10 MG Tablet PO (21:15)
[2025-02-19] MEDS: Losartan Potassium 50 MG Tablet PO (21:16)
[2025-02-19] MEDS: amLODIPine 2.5 MG Tablet PO (21:16)
[2025-02-19] MEDS: Tamsulosin HCl 0.4 MG Capsule PO (21:16)
[2025-02-20 03:30] VITALS: BP 140/71; PULSE 51; RESP 16; TEMP 36.6; O2SAT 96
[2025-02-20 04:58] LABS: Hematocrit 34.9 % (40-54); Hemoglobin 11.8 g/dL (13.0-16.5); Mean Corp Hgb Conc 33.8 g/dL (32-36); Mean Corpuscular Hgb 30.3 pg (27.0-32.0); Mean Corpuscular Volume 89.7 fL (80-94); Mean Platelet Vol. 10.4 fl (6.2-12.0); Platelet Count 215 K/mm3 (150-450); RBC Distribution Width CV 13.8 % (11.6-14.6); RBC Distribution Width SD 45.1 fl (35.1-43.9); Red Blood Count 3.89 M/mm3 (4.6-6.2); White Blood Count 5.4 K/mm3 (4.4-11.0)
[2025-02-20 05:26] LABS: ALB/GLOB Ratio 1.4 RATIO (0.9-2.4); AST(SGOT) 20 U/L (<=37); Alanine Aminotransfer ALT/SGPT 18 U/L (<=46); Albumin, Serum 3.7 g/dL (3.4-4.8); Alkaline Phosphatase 72 U/L (40-129); Anion Gap 9 (5-15); BUN 23 mg/dL (4-19); BUN/Creat Ratio 21.6 RATIO (10-20); Calcium,Total 8.7 mg/dL (7.6-11.0); Carbon Dioxide 21.4 mmol/L (21.0-32.0); Chloride 107 mmol/L (98-108); Creatinine, Serum 1.07 mg/dL (0.70-1.20); EST Glomerular Filtration Rate 72 (>60); Estimated Creatinine Clearance 71.29 ml/min (50-250); Globulin 2.6 g/dL (2.2-4.2); Glucose 89 mg/dL (70-99); Potassium 4.2 mmol/L (3.3-5.1); Protein, Total 6.3 g/dL (5.9-8.4); Sodium Level 137 mmol/L (133-145); Total Bilirubin 0.62 mg/dL (0.00-1.30)
[2025-02-20 07:09] VITALS: O2SAT 96
--- NOTE | 2025-02-20 07:36 | PN.CARD_ITS ---
Subjective Subjective Patient seen and evaluated. No complaints other than mild right hand swelling. Objective Data Vital Signs: Vital Signs Temp Pulse Resp BP Pulse Ox O2 Del Method 97.8 F 51 L 16 140/71 H 96 Room Air 02/20/25 03:30 02/20/25 03:30 02/20/25 03:30 02/20/25 03:30 02/20/25 07:09 02/20/25 07:09 Oxygen Delivery Method Room Air Weight: 203 lb Body Mass Index (BMI) 25.3 Intake & Output: Intake and Output for Last 24 Hours 02/18/25 02/19/25 02/20/25 23:59 23:59 23:59 Intake Total 1372.5 / 1372.5 Output Total 900 / 900 Balance 472.5 / 472.5 Lab / Micro Data 02/20/25 03:50 02/20/25 03:50 Labs: Laboratory Results - last 24 hr 02/19/25 08:07: Activated Clotting Time 245 H 02/20/25 03:50: WBC 5.4, RBC 3.89 L, Hgb 11.8 L, Hct 34.9 L, MCV 89.7, MCH 30.3, MCHC 33.8, RDW Std Deviation 45.1 H, RDW Coeff of Anuj 13.8, Plt Count 215, MPV 10.4, Sodium 137, Potassium 4.2, Chloride 107, Carbon Dioxide 21.4, Anion Gap 9, BUN 23 H, Creatinine 1.07, Estim Creat Clear Calc 71.29, Est GFR (MDRD) Non-Af 72, BUN/Creatinine Ratio 21.6 H, Glucose 89, Calcium 8.7, Total Bilirubin 0.62, AST 20, ALT 18, Alkaline Phosphatase 72, Total Protein 6.3, Albumin 3.7, Globulin 2.6, Albumin/Globulin Ratio 1.4 Cardiology Labs/Tests 02/20/25 03:50: WBC 5.4, RBC 3.89 L, Hgb 11.8 L, Hct 34.9 L, MCV 89.7, MCH 30.3, MCHC 33.8, Plt Count 215, MPV 10.4, Sodium 137, Potassium 4.2, Chloride 107, Carbon Dioxide 21.4, Anion Gap 9, BUN 23 H, Creatinine 1.07, Est GFR (MDRD) Non- Af 72, BUN/Creatinine Ratio 21.6 H, Glucose 89, Calcium 8.7, Total Bilirubin 0.62 Rhythm: EKG: ECHO: Stress Test: Cardiac Cath: PCI: CT Surgery: Holter monitor: EPS: PPM: CXR: Chest CT Scan: Physical Exam Const alert, oriented x3 and no apparent distress General Appearance: cooperative HEENT hearing grossly normal bilaterally Head and Scalp: atraumatic Eyes EOMs intact bilaterally Neck General: normal visual inspection Chest inspection of chest normal and palpation of chest normal Resp normal respiratory effort Auscultation: clear to auscultation bilaterally Cardio regular rate, regular rhythm, S1 normal heart sound and S2 normal heart sound Jugular Venous Distention: JVD GI normal to inspection, nondistended, normoactive bowel sounds Extremity normal capillary refill and no pedal edema Peripheral Pulses: Yes pulses 2+ throughout and femoral pulses present Skin no rashes or lesions noted Neuro oriented x3 and CN's II-XII intact bilaterally Psych Appearance: grossly normal and appropriate Assessment & Plan Assessment/Plan (1) CAD (coronary artery disease): PLAN: Patient has known coronary disease underwent cardiac catheterization which demonstrated high-grade disease noted of the mid left anterior descending artery for which she underwent angioplasty and stenting. Patient will follow-up in our office. Cardiac rehabilitation ordered. Patient has not been able to tolerate statins in the past. He is on Zetia. We will try and put him on Repatha. (2) Essential hypertension: PLAN: He will continue with aggressive risk factor modification and blood pressure treatment.
--- NOTE | 2025-02-20 07:40 | DCINST_ITS ---
Discharge Instructions Diet Discharge Diet: No restrictions (You may continue your normal diet.) DC O2, CPAP, BIPAP needs Home O2 Discharge instructions: No Dressing / Incision Discharge Activity: Return to Normal Activity Lifting Restrictions: 10 pounds and also avoid any pushing or pulling for 3 days after your test. Additional Activity Instructions:: You must have someone drive you home. Do not drive until instructed by your doctor. You must have someone stay with you all night after your test. Rest in bed or on the couch until the next morning. Limit the number of times you go up and down stairs the day of your test. Apply pressure to the puncture site if you sneeze or cough. Dressing / Incision Call your doctor if your incision/area has: Increased Pain/ Swelling, Increased Redness, Foul Smelling Discharge and Swelling at the incision site Call your doctor if you observe: Fever of 101 or Higher Additional Dressing/Incision Instructions:: Keep the dressing (bandage) on until the next morning. You may then shower, but do not take a tub bath for 5 days after your test. It is normal to have some tenderness and discomfort at the puncture site. Sometimes bruising also occurs. However, if pain, numbness, or coldness occurs below the puncture site (in your leg, toes, arms or fingers) call your doctor at once. You may have a small, marble sized knot at the puncture site. This is normal. Do not rub it. It will go away in 4-6 weeks. Bleeding can occur from the area where the puncture was done. Blood may spurt or drip from the site. If blood spurts, apply pressure right away to stop bleeding and call 911. Although rare, bleeding into the tissue (hematoma) can also occur. If this happens, a large, firm area goose egg under the skin will appear. If any of these occur, lie down as flat as you can and have someone apply firm pressure to the cath site with a gauze pad or a clean washcloth for 10-15 minutes. Call 911 or go to the Emergency Department. Follow Up Care When: Pac[facility] clinic on June 03 at 1:30 PM. Test Results: Test results from this visit will be discussed in further detail at your follow- up appointment, if applicable. Discharge Plan Admission Admit Date/Time: 02/19/25 15:36 Attending Provider: Michael Freeman Primary Care Provider: Lawrence Wilson Discharge Orders/Prescriptions Prescriptions: New clopidogrel 75 mg Tablet 75 mg PO DAILY Qty: 90 3RF Continued losartan 50 mg tablet 50 mg PO QDAY amlodipine 2.5 mg tablet 2.5 mg PO QDAY Qty: 30 11RF Adult One Daily Multivitamin 0.4 mg tablet 1 tab PO DAILY meloxicam [Mobic] 15 mg tablet 15 mg PO DAILY aspirin [Adult Aspirin Regimen] 81 mg tablet,delayed release (DR/EC) 81 mg PO DAILY ezetimibe [Zetia] 10 mg tablet 10 mg PO DAILY tamsulosin [Flomax] 0.4 mg capsule 0.4 mg PO QHS tadalafil [Cialis] 5 mg tablet 5 mg PO DAILY PRN (Reason: sexual activity) Referrals / Follow Up: Lawrence Wilson MD [Primary Care Provider] - Disposition Disposition (needs filled in before D/C Order can be placed): Home, Self Care
[2025-02-20 08:41] VITALS: BP 129/94; PULSE 51; RESP 16; TEMP 36.7; O2SAT 98
[2025-02-20] MEDS: Aspirin E.C. 81 MG Tablet PO (08:49)
[2025-02-20] MEDS: Multivitamins,Ther W-Minerals Tablet 1 TABLET PO (08:49)
[2025-02-20] MEDS: Clopidogrel Bisulfate 75 MG Tablet PO (08:49)
--- NOTE | 2025-02-20 09:30 | EKG12_ITS ---
Test Reason : AM EKG Blood Pressure : */* mmHG Vent. Rate : 51 BPM Atrial Rate : 51 BPM P-R Int : 192 ms QRS Dur : 76 ms QT Int : 452 ms P-R-T Axes : 70 47 44 degrees QTcB Int : 416 ms Sinus bradycardia Otherwise normal ECG When compared with ECG of 12-Aug-2021 04:43, No significant change was found Confirmed by TIRSO WATKINS, MICHAEL ([id number]), copy editor MEGAN CORCORAN ([id number]) on 02/21/2025 8:44:37 AM Referred By: Michael Freeman Confirmed By: MICHAEL FREEMAN MD
--- NOTE | 2025-02-20 10:02 | CASEMGMT ---
Patient has order for discharge. RN CM in to discuss needs at discharge. Patient denies needs or help at discharge. Patient had no further questions or concerns.
--- NOTE | 2025-02-20 10:50 | PHA.DC.MC.R ---
Pharmacy [facility] has performed discharge medication reconciliation and counseling for this patient. 1. CLOPIDOGREL 75MG PO DAILY The patient's discharge medication list was reviewed for discrepancies and discrepancies were resolved. The patient was counseled on the following discharge medications and changes in medications for homegoing were reviewed. The Reason for Use, instructions for use, and potential side effects were reviewed for all new medications. The patient's questions regarding all of their medications were answered. The patient was able to verbally demonstrate an understanding of their discharge medications. Medications at Discharge Home Medications aspirin 81 mg tablet,delayed release (Adult Aspirin Regimen) 81 mg PO DAILY 04/28/21 ezetimibe 10 mg tablet (Zetia) 10 mg PO DAILY 04/28/21 meloxicam 15 mg tablet (Mobic) 15 mg PO DAILY 04/28/21 multivitamin with minerals-folic acid 0.4 mg tablet (Adult One Daily Multivitamin) 1 tab PO DAILY 04/28/21 tamsulosin 0.4 mg capsule (Flomax) 0.4 mg PO QHS 04/28/21 tadalafil 5 mg tablet (Cialis) 5 mg PO DAILY PRN sexual activity 03/04/22 amlodipine 2.5 mg tablet 2.5 mg PO QDAY #30 tabs 02/05/25 losartan 50 mg tablet 50 mg PO QDAY 02/05/25 clopidogrel 75 mg tablet 75 mg PO DAILY #90 tabs 02/20/25
[2025-02-27 14:05] LABS: ACT Activated Clotting Time 233 sec (74-137)
== END 2025-02-20 07:40 | disposition home or self-care (01) ==
LOC: CLSP 15:48 → PCU 15:48
PROVIDERS: Internal Medicine Cardiovascular Disease; Admitting Provider Internal Medicine Cardiovascular Disease; PCP Family Medicine; Referring Provider Internal Medicine Cardiovascular Disease; Visit Provider Internal Medicine Cardiovascular Disease
DX: I25.119 Atherosclerotic heart disease of native coronary artery with unspecified angina pectoris (principal); I10 Essential (primary) hypertension; E78.2 Mixed hyperlipidemia; R94.39 Abnormal result of other cardiovascular function study; Z79.82 Long term (current) use of aspirin; Z79.899 Other long term (current) drug therapy; Z95.5 Presence of coronary angioplasty implant and graft
CPT/HCPCS: 36415; 80053; 85027; 85347; 92928; 93005; 93458; 96360; 96361; 99152; 99153; 99221; Q9967; C1725; C1769; C1874; C1887; C1894; C9600; G0378

== ENCOUNTER → 2025-02-27 | Outpatient (CLI) | payer MEDICARE, OTHER, SELFPAY ==
--- NOTE | 2025-02-27 08:02 | PCM.CR.HP2 ---
CR - History & Physical General Arrival date:: 02/27/25 Arrival time:: 08:02 Date of Referral:: 02/22/25 Date of CR Evaluation:: 02/27/25 Referring Physician: Dr. Watts Primary Diagnosis: PCI w/stenting History of Present Cardiac Event Onset Date PTCA or coronary stenting:: Yes Vessel: LAD onset 02/19/25 Medications Ambulatory Orders ?Medication ?Instructions ?Recorded aspirin 81 mg tablet,delayed 81 mg PO DAILY 04/28/21 release (Adult Aspirin Regimen) ezetimibe 10 mg tablet (Zetia) 10 mg PO DAILY 04/28/21 meloxicam 15 mg tablet (Mobic) 15 mg PO DAILY 04/28/21 multivitamin with minerals-folic 1 tab PO DAILY 04/28/21 acid 0.4 mg tablet (Adult One Daily Multivitamin) tamsulosin 0.4 mg capsule (Flomax) 0.4 mg PO QHS 04/28/21 tadalafil 5 mg tablet (Cialis) 5 mg PO DAILY PRN sexual activity 03/04/22 amlodipine 2.5 mg tablet 2.5 mg PO QDAY #30 tabs 02/05/25 losartan 50 mg tablet 50 mg PO QDAY 02/05/25 clopidogrel 75 mg tablet 75 mg PO DAILY #90 tabs 02/20/25 Allergies Allergies atorvastatin Adverse Reaction (Severe, Verified 02/05/25 10:53) myalgias pitavastatin (From Livalo) Adverse Reaction (Severe, Verified 02/05/25 10:53) Myalgias rosuvastatin Adverse Reaction (Severe, Verified 02/05/25 10:53) Myalgias Sleep Disorder Evaluation Hx of Sleep Apnea: No Do you snore loudly (louder than talking or can be heard through closed doors)?: No Do you often feel tired/ fatigued/ sleepy during daytime?: No Has anyone observed you stop breathing during sleep?: No History of Hypertension (for STOP score): Yes STOP Results: Negative Advanced Directives Advanced Directives Do you have a Healthcare Power of Drum Sealer?: Yes Living Will: Yes Advance Directives Information Provided: Yes Advance Directives on File: Yes DNR Order?:: No Past Medical History Covid-19 Screening Physicial Symptoms Other Clinical Concerns Exposure Risk Pertinent Comorbidities 65 years or older:: Yes Has a serious heart condition:: Yes Past Medical Illness Past Medical History (Updated 02/19/25 @ 09:[address] Maged Watts MD) Essential hypertension I10 Abnormal stress test R94.39 Presence of stent in coronary artery (~08/11/21) Z95.5 Successful percutaneous coronary intervention, of mid LAD 70% eccentric stenosis with BRETT-3 flow pre-procedure; Post procedure following predilatation using 2.5 x 15 mm emerge balloon and placement of drug-eluting stent 3.5 x 22 mm drug-eluting stent/[place] per Dr. Taylor 08/11/21 Atherosclerotic heart disease of [place] coronary artery without angina pectoris I25.10 Bilateral carotid artery disease I77.9 History of prostate cancer Z85.46 Sinus bradycardia R00.1 Mixed hyperlipidemia E78.2 Past Surgical History Past Surgical History Presence of coronary angioplasty implant and graft (~08/11/21) Z95.5 Successful percutaneous coronary intervention, of mid LAD 70% eccentric stenosis with BRETT-3 flow pre-procedure; Post procedure following predilatation using 2.5 x 15 mm emerge balloon and placement of drug-eluting stent 3.5 x 22 mm drug-eluting stent/[place]iro per Dr. Taylor 08/11/21 History of tonsillectomy Z90.89 History of appendectomy Z90.49 History of left inguinal hernia repair Z98.890, Z87.19 Social History Smoking History Smoking Status: Never smoker Alcohol Use Alcohol Usage: Yes (2-3 beers a week) Substance Abuse Hx Substance Use: No Occupation Occupation (List type of work in comments):: Retired Social Environment Status Marital Status: Current Living Arrangements Living Environment:: Spouse Children How many children do you have?: 2 Do any of your children live nearby?: Yes Safety Do you feel safe in your surroundings?: Yes Assistance Do you need any assistance at home?: no Review of Systems Review of Systems Hints Review of Present Symptoms: Reports PVD, Fatigue, Appetite - Normal, Appetite - Special Diet and Sleep - Normal; Denies Shortness of Breath at Rest, Shortness of Breath with Exertion, Operative Discomfort, Angina, Wound Healing, Dizziness/Lightheadedness, Heart Arrhythmia/Irregularities or Sexual Changes Pain Is Patient Pain Free?: No Pain Location: other (arthritis pain everywhere) Pain Level: 5/10 Risk Factor Assessment Chief Complaint Chief Complaint: PCI with stenting Vital Signs Pulse Ox: 97 Blood Pressure: 120/62 Pulse Pulse Rate: 50 Hypertension How long have you been treated?: 5 months Blood Pressure Sitting - Right Arm: 120/62 Obesity Height: 6 ft 3 in Weight:: 203 lb Weight in Pounds: 203.0 lbs Body Mass Index (BMI): 25.3 Nutritional Referral for Obesity: No Physical Inactivity Physical Inactivity: None Risk Stratification Risk Guidelines: Lowest Risk: Risk Factor for Smoking, Moderate Risk: Risk Factor for Diabetes, Risk Factor for Obesity, Risk Factor for Sedentary Lifestyle and Risk Factor for Depression and Highest Risk: Risk Factor for Dyslipidemia and Risk Factor for Hypertension For Smoking Smoking Risk Guidelines For Dyslipidemia Dyslipidemia Risk Guidelines For Diabetes Mellitus Diabetes Risk Guidelines For Obesity/Overweight Obesity/Overweight Risk Guidelines For Hypertension Hypertension Risk Guidelines For Sedentary Lifestyle Sedentary Lifestyle Risk Guidelines For Depression Depression Risk Guidelines Motivation Motivation to Participate On a scale of 1 to 10, how prepared are you to commit to attending program?: 9 What do you see as barriers to successfully being able to complete the program?: nothing What do you see as the benefits of succesfully completing the program? In other words, what do you hope to get out of participating in the program?: get back in shape, more energy Are there issues you are dealing with that will interfere with completing the program?: no Do you have a spouse or signficant other, family or friends who will help support you to complete the program?: yes
--- NOTE | 2025-02-27 08:08 | PCM.CR.ITP ---
Diagnosis General Information Admitting Diagnosis: PCI with stenting Personal Learning Style:: Audio/Visual Barriers to Learning: No Barriers Stage of change r/t lifestyle modifications:: Contemplation Gave educational material for:: Treating Heart Disease, How The Heart Works, What it means to have Heart Disease, How Coronary Artery Disease is Diagnosed, Heart Procedures, What Heart Medications Do, Risk Factors & Modifications, Living an Active Life, Nutrition, Emotions & Heart Disease, Stress Management & Relaxation and Sleep Disorders & Heart Disease Education/Goals Cardiac Rehabilitation Goals Personal Goals: Initial Assessment: Improve energy level, Participate in home exercise program, Get back to work, or to resume activities faster, Improve knowledge of cardiac disease, Improve muscle strength and endurance, Improve diet and eating habits (eat healthier) and Control risk factors (learn risk factor modification) Scale for measuring improvement of personal goals Diagnosis & Disease Process Outcomes/Goals: Pt IDs own risk factors & lifestyle modifications by Session 10, Verbalizes symptoms of angina & response by session 3., Pt independently manages and Other Additional Outcomes/Goals: Plan/Interventions: Assist Pt to ID & engage in lifestyle modification to reduce CVD risk, Instruct on individual risk factors, Review symptoms of angina & emergency actions, Review secondary diagnosis & identify educational needs. and Other see comment 30 day Reassessments:: Not Met 30 day Reassessments:: Not Met 30 day Reassessments:: Not Met 30 day Reassessments:: Not Met Final Reassessments:: Not Met Safety Referral to Physical Therapy: No Referral to [facility] Case Management: No Fall Risk Assessed:: Yes Assistive Devices:: None Exercise - Initial Assessment Visit Date of Eval: 02/27/25 (initial eval ) Mets: Pre-: >3 METS for 30 minutes by discharge, >5 METS for 30 minutes by discharge, >7 METS for 30 minutes by discharge and Unable to meet goal due to: (see comment below) Physician Prescribed Exercise Modalities: Treadmill, Rower, Schwinn Airdyne AD-7, SciFit Stepper, SciFit Pro-II Ergometer and SciFit Lateral [place] Frequency: 3x/week for 12 weeks [36 sessions] Intensity: 60-80% of age predicted maximum heart rate reserve Duration: 30 - 45 minutes Current METSs:: 3 Target Heart Rate:: 87-109 Resting Blood Pressure: 120/62 EKG Type: SB Outcomes & Goals Goals:: Verbalizes understanding of THR, RPE & goal METS by session 6, Documents in home exercise log/reports 30 min aerobic 5 day/wk by DC, Demonstrates accurate pulse taking by DC and Other additional outcome/goals: see below Intervention & Plan Exercise Program Goals: Instruct on personal THR & RPE, Instruct on MET level & personal MET goal, Show patient to take own pulse /validate performance until accurate, Instruct on home exercise and Other additional plan/int Physical Activity Home Exercise Physical Activity - Home Exercise: Safe Exercise, Warm-up, Self-monitoring, Cool-Down, Home Exercise > 30 min Daily and Sitting Time <3 hours/daily Outcomes & Goals Outcomes/Goals: Demonstrates correct Warm-up/exercise Cool-Down (S3) if = 2.5 METs, Verbalizes symptoms of exercise intolerance by Session 3 (S3), Demonstrate safe equipment use (S3) & follows exercise prescrition (6) and Other: See below Intervention & Plan Plan/Intervention: Instruct warm-up & cool-down if exercising at > 2 METs, Instruct on symptoms of exercise intolerance & actions to take, Instruct & monitor on saf, Assess intial functional capacity & safety risk and Other See below Nutrition - Initial Assessment Program Goals Nutrition Program Goals Patient has diagnosis of Hyperlipidemia (ICD E78)?: Yes Visit Date of Eval: 02/27/25 (initial eval ) Cholesterol/Lipids (Other Core Measures) Determine presence & major risk factors that modify LDL goal: Hypertension or hypertensive medication, Low HDL cholesterol <40 mg/dL*, Family history of premature CHD in Male < 55 years: female <65 yearsFa and Age men > 45 years; women >/= 55 years Outcomes/Goals: Pt IDs own risk factors & lifestyle modifications by Session 10, Verbalizes symptoms of angina & response by session 3., Pt independently manages and Other Additional Outcomes/Goals: Intervention/Plan: Advocate for lipid panel cholesterol medication if applicable, Instruct on personal lipid levels & lipid goals/NCEP guidelines, Instruct on cholesterol and Other additional plan/int Diabetes (Other Core Measures) Diabetes Type: Not Applicable Weight Mgt (Other Care) Height: 6 ft 3 in Weight:: 203 lb BMI: 25.3 Diagnosis Overweight/Obesity BMI> 30% ICD-10 E66: No Diagnosis High BMI/Morbid Obesity BMI> 35% ICD-10 Z68: No Outcomes/Goals: Pt sets, maintains & shows weight loss goal & trend during rehab and Other additional outcomes/goals Intervention/Plan: Instruct on ideal BMI & set weight loss goal w/patient, Assist pt to ID & incorporate diet changes for weight loss by S9, Refer to Structured Weight Loss program as appropriate, Encourage goal of using 250-300dcal per session for weight loss and Other additional plan/interventions Healthy Eating Habits Will attend diet classes:: Yes Outcomes/Goals:: Consume diet rich in vegs,fruits,whole grain/high fiber,fish,lean meat, Limit sat/trans fats,cholesterol & added salts & sugars and Other additional outcome/goals: Intervention/Plan:: Assess current eating habits and Other Additional plan/interventions Education Gave educational materials for:: Signs & symptoms of hypoglycemia, Signs & symptoms of hyperglycemia, Relate diabetes to coronary artery disease and Healthy eating Core - Initial Assessment Visit Date of Eval: 02/27/25 (initial eval ) Medication Compliance Preventative Medication(s):: Aspirin, Clopidogrel/P2Y12 inhibit, Statin/lipid and ARB (Angiotensi Rcap) H/O mental health issues: depression, anxiety, or addiction?: No Doesn?t believe in the benefits of treatment?: No Believes medications are unnecessary or harmful?: No Has a concern about medication side effects?: No Expresses concern over the cost of medications?: No Outcomes/Goals: Verbalizes medications,desired effect & common side effects @ DC, Pt self-reports following medication regimen, Keeps card in wallet w/medications listed by DC and Other additional outcome/goals: Interventions/plans: Instruct on medication effects & side effects, Review medication list w/patient every two weeks, Instruct importance of taking meds as ordered & assist problem solving and Other additional Tobacco Use Tobacco Use: Non-smoker Hypertension Hypertension Diagnosis:: Hypertension ICD-10 I10 Resting Blood Pressure:: 120/62 [employer] [employer] Hypertension Guidelines Outcomes/Goals: Able to verbalize/achieve optimal blood pressure <130/80, Incorporates diet changes & exercise for blood pressure control by DC and Other additional outcomes/goals Interventions/plan: Instruct on optimal blood pressure, hypertension & medications, Instruct on effects of sodium, alcohol, stress, exercise &hypertension and Other additional plan/interventions Tobacco Cessation Referral Smoking Cessation Referral:: No Individual Education/Counseling:: No Education Schedule Given:: Yes Psychosocial - Initial Assess VIsit Date of Eval: 02/27/25 (initial eval ) History of previous Mental disease:: No Target Goals Target Goals Psychosocial Test Tool Used:: Sunny Oswald QOL Cardiac and PHQ-9 Questionnaire phq-9 Severity See PHQ-9 Score: 4 Referral to Behavioral Health PS - Interventions: Yes: Attend Stress Management Classes Outcomes/Goals: See list Psychosocial Outcomes/Goals:: ID's personal stressors & 2 strategies to manage stress by discharge and Other Additional outcome/goals: Intervention/Plan: See List Interventions/Plan:: Assess stressors,coping strategies & signs of derpression on admission, Instruct/assist pt to develop coping & personal stress Mgt strategies, Refer to Behavioral Health if appropriate, Refer to Physician if appropriate, Instruct patient to recognize signs & symptoms of depression, Instruct patient to recog and Other additional plan/intervention Patient Health Questionnaire PHQ-9 Screening Initial Assessment: 1. Little interest or pleasure in doing things: Not at all 2. Feeling down, depressed, or hopeless: Not at all 3. Trouble falling or staying asleep, or sleeping too much: Several days 4. Feeling tired or having little energy: More than half the days 5. Poor appetite or overeating: Several days 6. Feeling bad about yourself -- or that you are a failure or have let yourself or your family down: Not at all 7. Trouble concentrating on things, such as reading the newspaper or watching television: Not at all 8. Moving or speaking so slowly that other people could have noticed. Or the opposite - being so fidgety or restless that you have been moving around a lot more than usual: Not at all 9. Thoughts that you would be better off , or of hurting yourself in some way: Not at all How difficult have these problems made it for you to do your work, take care of things at home, or get along with other people?: Not difficult at all Total Score: 4 SEAN-Q SV Test Statements CAD is a disease of the arteries in the heart: True Examples of risk factors for heart disease: True Angina is chest pain or discomfort: I Don't Know The benefits of resistance training include: True Eating more meat and dairy products: I Don't Know Anti-platelet medications such as aspirin are important: True The only effective way to manage stress: False An exercise warm-up slowly increases heart rate: True Prepared, processed foods usually have high sodium: True Depression is common after a heart attack: I Don't Know The statin medications lower cholesterol: True To control blood pressure, lower the amount of sodium: True If someone gets chest discomfort during walking: False Transfats are partially hydrogenated vegetable oils: True Sleep apnea that is not treated increases the risk: I Don't Know To control cholesterol, one should become a vegetarian: I Don't Know Someone knows if he/she is exercising at the right level: I Don't Know Diabetes cannot be prevented with exercise & health eating: I Don't Know Stress is a large risk for heart attack: True A diet that can help lower blood pressure is rich in: True Total Score Total Correct Responses: 12 Self-Efficacy 6-Item Scale Initial Assessment: We would like to know how confident you are in doing certain activities. Please select your confidence level for: Fatigue Select Number: 8 Physical Discomfort or Pain Select Number: 8 Emotional Distress Select Number: 8 Other Symptoms or Health Problems Select Number: 8 Different Tasks and Activities Select Number: 9 Medication Select Number: 9 Total Score:: 8 Nutrition Survey Nutrition Survey Instructions Scoring Instructions Nutrition Survey Initial: Have you lost >10 lbs over the past 2 months without trying?: No Are you following a special diet at home for diabetes, low fat, or low salt?: No Are you interested in meeting with a dietitian for help understanding your diet?: Yes (verbally declined 1 on 1 consult) Do you eat less than 3 meals a day?: No Do you eat fatty meats (roa, sausage, ribs, etc), fried foods, desserts, large amounts of salad dressings, margarine, butter, or cheese most days?: Yes Do you have food allergies? [Enter types in comment field]: No Do you eat in restaurants more than 3 times a week?: No Do you season food with salt, seasoning salt, or garlic salt?: Yes Do you used canned, boxed, frozen meals, or soups, seasoning packets?: Yes Total Score:: 4 Exercise - 30-day Assessment Physician Prescribed Exercise Modalities: Treadmill, RowerAlix AD-7, SciFit Stepper, SciFit Pro-II Ergometer and SciFit Lateral [place] Exercise - 60-day Assessment Physician Prescribed Exercise Modalities: Treadmill, RowerAlixne AD-7, SciFit Stepper, SciFit Pro-II Ergometer and SciFit Lateral [place] Exercise - 90-day Assessment Physician Prescribed Exercise Modalities: Treadmill, Rower, Schwinn Airdyne AD-7, SciFit Stepper, SciFit Pro-II Ergometer and SciFit Lateral 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 Exercise - Final/Discharge Physician Prescribed Exercise Modalities: Treadmill, Rower, Schwinn Airdyne AD-7, SciFit Stepper, SciFit Pro-II Ergometer and SciFit Lateral [place] Frequency: 3x/week for 12 weeks [36 sessions] Intensity: 60-80% of age predicted maximum heart rate reserve Current METSs:: 3 Target Heart Rate:: 87-109 Nutrition - 30-Day Assessment Weight Mgt (Other Care) Height: 6 ft 3 in Weight:: 203 lb BMI: 25.3 Nutrition - 60-Day Assessment Weight Mgt (Other Care) Height: 6 ft 3 in Weight:: 203 lb BMI: 25.3 Core - Final Assessment Hypertension Resting Blood Pressure:: 120/62 [employer] [employer] Hypertension Guidelines Core - 60-Day Assessment Hypertension Resting Blood Pressure:: 120/62 [place] [employer] Hypertension Guidelines Psychosocial - 30-Day Assess Target Goals Target Goals Referral to Behavioral Health PS - Interventions: Yes: Attend Stress Management Classes Psychosocial - 60-Day Assess Target Goals Target Goals Referral to Behavioral Health PS - Interventions: Yes: Attend Stress Management Classes Psychosocial - 90-Day Assess Target Goals Target Goals Referral to Behavioral Health PS - Interventions: Yes: Attend Stress Management Classes Psychosocial - Final Assessmen Target Goals Target Goals Psychosocial Test phq-9 Severity See PHQ-9 Score: 4 Referral to Behavioral Health PS - Interventions: Yes: Attend Stress Management Classes Nutrition - 90-Day Assessment Weight Mgt (Other Care) Height: 6 ft 3 in Weight:: 203 lb BMI: 25.3 Nutrition - Final Assessment Program Goals Patient has diagnosis of Hyperlipidemia (ICD E78)?: Yes Weight Mgt (Other Care) Height: 6 ft 3 in Weight:: 203 lb BMI: 25.3
[2025-02-27 08:26] VITALS: BP 120/62; PULSE 50; O2SAT 97
[2025-02-27 08:57] VITALS: BP 120/62; BMI 25.3
[2025-02-27 08:58] VITALS: BMI 25.3
== END | disposition home or self-care (01) ==
LOC: CR 07:56
PROVIDERS: PCP Family Medicine; Referring Provider Internal Medicine Cardiovascular Disease; Visit Provider Internal Medicine Cardiovascular Disease
DX: Z00.00 Encounter for general adult medical examination without abnormal findings (principal)

== ENCOUNTER → 2025-03-07 | Outpatient (CLI) | payer MEDICARE, OTHER, SELFPAY ==
[2025-02-27 08:57] VITALS: BMI 25.3
[2025-03-07 15:56] LABS: Absolute Lymphocyte Count 1.46 X10^3/uL (0.83-4.51); Absolute Neutrophil Count 3.4 X10^3/uL (2.0-7.7); Basophil# 0.05 X10^3/uL; Basophil% 0.9 % (0-1); Eosinophil# 0.12 X10^3/uL; Eosinophils% 2.1 % (0-5); Hematocrit 36.9 % (40-54); Lymphocyte # 1.46 X10^3/ul (0.83-4.51); Lymphocyte % 25.3 % (19-41); Mean Corp Hgb Conc 32.5 g/dL (32-36); Mean Corpuscular Hgb 30.2 pg (27.0-32.0); Mean Corpuscular Volume 92.9 fL (80-94); Mean Platelet Vol. 11.1 fl (6.2-12.0); Monocyte# 0.69 X10^3/uL; NRBC Flagged by Analyzer 0 % (0-5); Neutrophil # 3.44 X10^3/uL (2.7-7.7); Neutrophil % 59.5 % (47-70); Platelet Count 225 K/mm3 (150-450); RBC Distribution Width CV 14.1 % (11.6-14.6); RBC Distribution Width SD 48.4 fl (35.1-43.9); Red Blood Count 3.97 M/mm3 (4.6-6.2); White Blood Count 5.8 K/mm3 (4.4-11.0)
[2025-03-07 17:21] LABS: ALB/GLOB Ratio 1.4 RATIO (0.9-2.4); AST(SGOT) 25 U/L (<=37); Alanine Aminotransfer ALT/SGPT 22 U/L (<=46); Albumin, Serum 4.2 g/dL (3.4-4.8); Alkaline Phosphatase 80 U/L (40-129); Anion Gap 11 (5-15); BUN 29 mg/dL (4-19); BUN/Creat Ratio 25.2 RATIO (10-20); Calcium,Total 8.8 mg/dL (7.6-11.0); Carbon Dioxide 23.4 mmol/L (21.0-32.0); Chloride 105 mmol/L (98-108); Cholesterol 160 mg/dL (<=200); Creatinine, Serum 1.15 mg/dL (0.70-1.20); EST Glomerular Filtration Rate 66 (>60); Glucose 113 mg/dL (70-99); High Density Lipoprotein 48 mg/dL; Low Density Lipoprotein Calc. 79 mg/dL; Potassium 4.3 mmol/L (3.3-5.1); Protein, Total 7.2 g/dL (5.9-8.4); Sodium Level 138 mmol/L (133-145); Total Bilirubin 0.41 mg/dL (0.00-1.30); Triglycerides 163 mg/dL; Very Low Density Lipoprotein 33 mg/dL (5-40); cholesterol:hdl ratio screen 3.32
== END | disposition home or self-care (01) ==
LOC: MFPLAB 12:04
PROVIDERS: PCP Family Medicine; Referring Provider Family Medicine; Visit Provider Family Medicine
DX: E78.5 Hyperlipidemia, unspecified (principal)
CPT/HCPCS: 36415; 80053; 80061; 85025

== ENCOUNTER 2025-03-13 08:00 | Outpatient (RCR) | payer MEDICARE, OTHER, SELFPAY ==
[2025-02-27 08:57] VITALS: BMI 25.3
== END 2025-03-13 23:59 ==
LOC: CR 08:00
PROVIDERS: PCP Family Medicine; Referring Provider Internal Medicine Cardiovascular Disease; Visit Provider Internal Medicine Cardiovascular Disease
DX: I25.10 Atherosclerotic heart disease of native coronary artery without angina pectoris (principal); R94.39 Abnormal result of other cardiovascular function study; R07.9 Chest pain, unspecified; R42 Dizziness and giddiness; R53.83 Other fatigue
CPT/HCPCS: 93798

== ENCOUNTER → 2025-03-27 | Outpatient (CLI) | payer MEDICARE, OTHER, SELFPAY ==
[2025-02-27 08:57] VITALS: BMI 25.3
[2025-03-27 13:06] LABS: PSA,Total- Diagnostic 0.84 ng/mL (0.00-4.00)
== END | disposition home or self-care (01) ==
LOC: MTLAB 10:04
PROVIDERS: PCP Family Medicine; Referring Provider Student in an Organized Health Care Education/Training Program; Visit Provider Student in an Organized Health Care Education/Training Program
DX: Z85.46 Personal history of malignant neoplasm of prostate (principal)
CPT/HCPCS: 36415; 84153

== ENCOUNTER 2025-04-12 08:00 | Outpatient (RCR) | payer MEDICARE, OTHER, SELFPAY ==
[2025-02-27 08:57] VITALS: BMI 25.3
--- NOTE | 2025-03-29 07:02 | CR.ITP_ITS ---
Exercise - Initial Assessment Visit Session #:: 11 Physician Prescribed Exercise Modalities: Alix Mcfarland AD-7 and SciFit Stepper Nutrition - Initial Assessment Weight Mgt (Other Care) Height: 6 ft 3 in Weight:: 203 lb 8 oz BMI: 25.4 Healthy Eating Habits Will attend diet classes:: Yes Psychosocial - Initial Assess Target Goals Target Goals Referral to Behavioral Health PS - Interventions: Yes: Attend Stress Management Classes Patient Health Questionnaire PHQ-9 Screening 30-Day Re-eval Assessment: 1. Little interest or pleasure in doing things: Not at all 2. Feeling down, depressed, or hopeless: Not at all 3. Trouble falling or staying asleep, or sleeping too much: Several days 4. Feeling tired or having little energy: More than half the days 5. Poor appetite or overeating: Several days 6. Feeling bad about yourself -- or that you are a failure or have let yourself or your family down: Not at all 7. Trouble concentrating on things, such as reading the newspaper or watching television: Not at all 8. Moving or speaking so slowly that other people could have noticed. Or the opposite - being so fidgety or restless that you have been moving around a lot more than usual: Not at all 9. Thoughts that you would be better off , or of hurting yourself in some way: Not at all How difficult have these problems made it for you to do your work, take care of things at home, or get along with other people?: Not difficult at all Total Score: 4 Self-Efficacy 6-Item Scale 30-Day Re-eval Assessment: We would like to know how confident you are in doing certain activities. Please select your confidence level for: Fatigue Select Number: 8 Physical Discomfort or Pain Select Number: 8 Emotional Distress Select Number: 8 Other Symptoms or Health Problems Select Number: 8 Different Tasks and Activities Select Number: 9 Medication Select Number: 9 Total Score:: 8 Nutrition Survey Nutrition Survey Instructions Scoring Instructions Exercise - 30-day Assessment Visit Date of Eval: 03/29/25 Session #:: 11 Physician Prescribed Exercise Modalities: Alix Mcfarland AD-7 and SciFit Stepper Frequency: 3x/week for 12 weeks [36 sessions] Intensity: 60-80% of age predicted maximum heart rate reserve Duration: 30 - 45 minutes Current METSs:: 5.4 Target Heart Rate:: 87-109 Current RPE:: 11-12 Maximum Excercise HR:: 90 Resting Blood Pressure: 140/40 Maximum Exercise Blood Pressure: 140/60 EKG Type: SB-NSR w/ rare PAC/PVC. Outcomes & Goals Goals:: Verbalizes understanding of THR, RPE & goal METS by session 6, Documents in home exercise log/reports 30 min aerobic 5 day/wk by DC, Demonstrates accurate pulse taking by DC and Other additional outcome/goals: see below Intervention & Plan Exercise Program Goals: Instruct on personal THR & RPE, Instruct on MET level & personal MET goal, Show patient to take own pulse /validate performance until accurate, Instruct on home exercise and Other additional plan/int Physical Activity Home Exercise Physical Activity - Home Exercise: Safe Exercise, Warm-up, Self-monitoring, Cool-Down, Home Exercise > 30 min Daily and Sitting Time <3 hours/daily Outcomes & Goals Outcomes/Goals: Demonstrates correct Warm-up/exercise Cool-Down (S3) if = 2.5 METs, Verbalizes symptoms of exercise intolerance by Session 3 (S3), Demonstrate safe equipment use (S3) & follows exercise prescrition (6) and Other: See below Intervention & Plan Plan/Intervention: Instruct warm-up & cool-down if exercising at > 2 METs, Instruct on symptoms of exercise intolerance & actions to take, Instruct & monitor on saf, Assess intial functional capacity & safety risk and Other See below 30-day Reassessments 30 day Reassessments:: Progressing Reassessment Notes & Comments:: RPE explained to pt. Pt demonstrates understanding in his daily sessions. Exercise - 60-day Assessment Physician Prescribed Exercise Modalities: Alix Mcfarland-7 and SciFit Stepper Exercise - 90-day Assessment Physician Prescribed Exercise Modalities: Alix Mcfarland AD-7 and SciFit Stepper Exercise - Final/Discharge Physician Prescribed Exercise Modalities: Alix Mcfarland AD-7 and SciFit Stepper Nutrition - 30-Day Assessment Program Goals Nutrition Program Goals Patient has diagnosis of Hyperlipidemia (ICD E78)?: Yes Visit Date of Eval: 03/29/25 Session #:: 11 Cholesterol/Lipids (Other Core Measures) Determine presence & major risk factors that modify LDL goal: Hypertension or hypertensive medication, Low HDL cholesterol <40 mg/dL*, Family history of premature CHD in Male < 55 years: female <65 yearsFa and Age men > 45 years; women >/= 55 years Outcomes/Goals: Pt IDs own risk factors & lifestyle modifications by Session 10, Verbalizes symptoms of angina & response by session 3., Pt independently manages and Other Additional Outcomes/Goals: Intervention/Plan: Advocate for lipid panel cholesterol medication if applicable, Instruct on personal lipid levels & lipid goals/NCEP guidelines, Instruct on cholesterol and Other additional plan/int Diabetes (Other Core Measures) Diabetes Type: Not Applicable Weight Mgt (Other Care) Height: 6 ft 3 in Weight:: 203 lb 8 oz BMI: 25.4 Diagnosis Overweight/Obesity BMI> 30% ICD-10 E66: No Diagnosis High BMI/Morbid Obesity BMI> 35% ICD-10 Z68: No Outcomes/Goals: Pt sets, maintains & shows weight loss goal & trend during rehab and Other additional outcomes/goals Intervention/Plan: Instruct on ideal BMI & set weight loss goal w/patient, Assist pt to ID & incorporate diet changes for weight loss by S9, Refer to Structured Weight Loss program as appropriate, Encourage goal of using 250- 300dcal per session for weight loss and Other additional plan/interventions Healthy Eating Habits Will attend diet classes:: Yes Outcomes/Goals:: Consume diet rich in vegs,fruits,whole grain/high fiber,fish,lean meat, Limit sat/trans fats,cholesterol & added salts & sugars and Other additional outcome/goals: Intervention/Plan:: Assess current eating habits and Other Additional plan/interventions 30-day Reassessments:: Progressing Reassessment Notes & Comments:: Pt is scheduled to attend nutrition class. Low sodium heart healthy diet encouraged. Education Gave educational materials for:: Signs & symptoms of hypoglycemia, Signs & symptoms of hyperglycemia, Relate diabetes to coronary artery disease and Healthy eating Nutrition - 60-Day Assessment Weight Mgt (Other Care) Height: 6 ft 3 in Weight:: 203 lb 8 oz BMI: 25.4 Core - 30-Day Assessment Visit Date of Eval: 03/29/25 Session #:: 11 Medication Compliance Preventative Medication(s):: Aspirin, Clopidogrel/P2Y12 inhibit, Statin/lipid and ARB (Angiotensi Rcap) H/O mental health issues: depression, anxiety, or addiction?: No Doesn?t believe in the benefits of treatment?: No Believes medications are unnecessary or harmful?: No Has a concern about medication side effects?: No Expresses concern over the cost of medications?: No Outcomes/Goals: Verbalizes medications,desired effect & common side effects @ DC, Pt self-reports following medication regimen, Keeps card in wallet w/medications listed by DC and Other additional outcome/goals: Interventions/plans: Instruct on medication effects & side effects, Review medication list w/patient every two weeks, Instruct importance of taking meds as ordered & assist problem solving and Other additional Tobacco Use Tobacco Use: Non-smoker Hypertension Hypertension Diagnosis:: Hypertension ICD-10 I10 Resting Blood Pressure:: 140/40 [place] [employer] Hypertension Guidelines Peak Exercise Blood Pressure:: 140/60 Outcomes/Goals: Able to verbalize/achieve optimal blood pressure <130/80, Incorporates diet changes & exercise for blood pressure control by DC and Other additional outcomes/goals Interventions/plan: Instruct on optimal blood pressure, hypertension & medications, Instruct on effects of sodium, alcohol, stress, exercise &hypertens ion and Other additional plan/interventions 30 day Reassessments:: Progressing Reassessment Notes & Comments:: BP's are slightly elevated on most days. Will encourage a low sodium diet. We will send a report to pt's physician if no improvement is made. Tobacco Cessation Referral Smoking Cessation Referral:: No Individual Education/Counseling:: No Education Schedule Given:: Yes Psychosocial - 30-Day Assess VIsit Date of Eval: 03/29/25 Session #:: 11 History of previous Mental disease:: No Target Goals Target Goals Psychosocial Test Tool Used:: [employer] 1001 Menus QOL Cardiac and PHQ-9 Questionnaire phq-9 Severity See PHQ-9 Score: 4 Referral to Behavioral Health PS - Interventions: Yes: Attend Stress Management Classes Outcomes/Goals: See list Psychosocial Outcomes/Goals:: ID's personal stressors & 2 strategies to manage stress by discharge and Other Additional outcome/goals: Intervention/Plan: See List Interventions/Plan:: Assess stressors,coping strategies & signs of derpression on admission, Instruct/assist pt to develop coping & personal stress Mgt strategies, Refer to Behavioral Health if appropriate, Refer to Physician if appropriate, Instruct patient to recognize signs & symptoms of depression, Instruct patient to recog and Other additional plan/intervention 30-day Reassessments: 30 day Reassessments:: Progressing Reassessment Notes & Comments:: Pt to attend stress management class. Pt denies any psychosocial issues at this time. Psychosocial - 60-Day Assess Target Goals Target Goals Referral to Behavioral Health PS - Interventions: Yes: Attend Stress Management Classes Outcomes/Goals: See list Psychosocial Outcomes/Goals:: ID's personal stressors & 2 strategies to manage stress by discharge and Other Additional outcome/goals: Psychosocial - 90-Day Assess Target Goals Target Goals Referral to Behavioral Health PS - Interventions: Yes: Attend Stress Management Classes Psychosocial - Final Assessmen Target Goals Target Goals Referral to Behavioral Health PS - Interventions: Yes: Attend Stress Management Classes Nutrition - 90-Day Assessment Weight Mgt (Other Care) Height: 6 ft 3 in Weight:: 203 lb 8 oz BMI: 25.4 Nutrition - Final Assessment Weight Mgt (Other Care) Height: 6 ft 3 in Weight:: 203 lb 8 oz BMI: 25.4
[2025-03-29 07:14] VITALS: BP 140/40; BMI 25.4
== END 2025-04-13 23:59 ==
LOC: CR 08:00
PROVIDERS: PCP Family Medicine; Referring Provider Internal Medicine Cardiovascular Disease; Visit Provider Internal Medicine Cardiovascular Disease
DX: I25.10 Atherosclerotic heart disease of native coronary artery without angina pectoris (principal); R94.39 Abnormal result of other cardiovascular function study; R07.9 Chest pain, unspecified; R42 Dizziness and giddiness; R53.83 Other fatigue
CPT/HCPCS: 93798

== ENCOUNTER 2025-05-13 08:00 | Outpatient (RCR) | payer MEDICARE, OTHER, SELFPAY ==
[2025-03-29 07:14] VITALS: BMI 25.4
[2025-04-14 00:33] VITALS: BP 140/40
--- NOTE | 2025-04-26 08:00 | PCM.CR.ITP ---
Exercise - Initial Assessment Physician Prescribed Exercise Modalities: Alix Mcfarland AD-7 and SciFit Stepper Nutrition - Initial Assessment Weight Mgt (Other Care) Height: 6 ft 3 in Weight:: 203 lb BMI: 25.3 Core - Initial Assessment Hypertension Resting Blood Pressure:: 118/60 [place] [employer] Hypertension Guidelines Psychosocial - Initial Assess Target Goals Target Goals Referral to Behavioral Health PS - Interventions: Yes: Attend Stress Management Classes Patient Health Questionnaire PHQ-9 Screening 60-Day Re-eval Assessment: 1. Little interest or pleasure in doing things: Not at all 2. Feeling down, depressed, or hopeless: Not at all 3. Trouble falling or staying asleep, or sleeping too much: Several days 4. Feeling tired or having little energy: More than half the days 5. Poor appetite or overeating: Several days 6. Feeling bad about yourself -- or that you are a failure or have let yourself or your family down: Not at all 7. Trouble concentrating on things, such as reading the newspaper or watching television: Not at all 8. Moving or speaking so slowly that other people could have noticed. Or the opposite - being so fidgety or restless that you have been moving around a lot more than usual: Not at all 9. Thoughts that you would be better off , or of hurting yourself in some way: Not at all How difficult have these problems made it for you to do your work, take care of things at home, or get along with other people?: Not difficult at all Total Score: 4 Self-Efficacy 6-Item Scale 60-Day Re-eval Assessment: We would like to know how confident you are in doing certain activities. Please select your confidence level for: Fatigue Select Number: 8 Physical Discomfort or Pain Select Number: 8 Emotional Distress Select Number: 8 Other Symptoms or Health Problems Select Number: 8 Different Tasks and Activities Select Number: 8 Medication Select Number: 9 Total Score:: 8 Nutrition Survey Nutrition Survey Instructions Scoring Instructions Exercise - 30-day Assessment Physician Prescribed Exercise Modalities: Alix Mcfarland AD-7 and SciFit Stepper Exercise - 60-day Assessment Visit Date of Eval: 04/26/25 Session #:: 22 Physician Prescribed Exercise Modalities: Alix Mcfarland AD-7 and SciFit Stepper Frequency: 3x/week for 12 weeks [36 sessions] Intensity: 60-80% of age predicted maximum heart rate reserve Duration: 30 - 45 minutes Current METSs:: 6.9 Target Heart Rate:: 87-116 Current RPE:: 12-13 Maximum Excercise HR:: 96 Resting Blood Pressure: 124/50 Maximum Exercise Blood Pressure: 164/60 EKG Type: SB-NSR with rare PAC Outcomes & Goals Goals:: Verbalizes understanding of THR, RPE & goal METS by session 6, Documents in home exercise log/reports 30 min aerobic 5 day/wk by DC, Demonstrates accurate pulse taking by DC and Other additional outcome/goals: see below Intervention & Plan Exercise Program Goals: Instruct on personal THR & RPE, Instruct on MET level & personal MET goal, Show patient to take own pulse /validate performance until accurate, Instruct on home exercise and Other additional plan/int Physical Activity Home Exercise Physical Activity - Home Exercise: Safe Exercise, Warm-up, Self-monitoring, Cool-Down, Home Exercise > 30 min Daily and Sitting Time <3 hours/daily Outcomes & Goals Outcomes/Goals: Demonstrates correct Warm-up/exercise Cool-Down (S3) if = 2.5 METs, Verbalizes symptoms of exercise intolerance by Session 3 (S3), Demonstrate safe equipment use (S3) & follows exercise prescrition (6) and Other: See below Intervention & Plan Plan/Intervention: Instruct warm-up & cool-down if exercising at > 2 METs, Instruct on symptoms of exercise intolerance & actions to take, Instruct & monitor on saf, Assess intial functional capacity & safety risk and Other See below 30-day Reassessments 30 day Reassessments:: Progressing Reassessment Notes & Comments:: Proper warm up and cool down explained to pt. Pt demonstrates understanding in his daily sessions. Exercise - 90-day Assessment Physician Prescribed Exercise Modalities: Alix Mcfarland AD-7 and SciFit Stepper Exercise - Final/Discharge Physician Prescribed Exercise Modalities: Alix Mcfarland AD-7 and SciFit Stepper Nutrition - 30-Day Assessment Weight Mgt (Other Care) Height: 6 ft 3 in Weight:: 203 lb BMI: 25.3 Nutrition - 60-Day Assessment Program Goals Nutrition Program Goals Patient has diagnosis of Hyperlipidemia (ICD E78)?: Yes Visit Date of Eval: 04/26/25 Session #:: 22 Cholesterol/Lipids (Other Core Measures) Determine presence & major risk factors that modify LDL goal: Hypertension or hypertensive medication, Low HDL cholesterol <40 mg/dL*, Family history of premature CHD in Male < 55 years: female <65 yearsFa and Age men > 45 years; women >/= 55 years Outcomes/Goals: Pt IDs own risk factors & lifestyle modifications by Session 10, Verbalizes symptoms of angina & response by session 3., Pt independently manages and Other Additional Outcomes/Goals: Intervention/Plan: Advocate for lipid panel cholesterol medication if applicable, Instruct on personal lipid levels & lipid goals/NCEP guidelines, Instruct on cholesterol and Other additional plan/int Diabetes (Other Core Measures) Diabetes Type: Not Applicable Weight Mgt (Other Care) Height: 6 ft 3 in Weight:: 203 lb BMI: 25.3 Diagnosis Overweight/Obesity BMI> 30% ICD-10 E66: No Diagnosis High BMI/Morbid Obesity BMI> 35% ICD-10 Z68: No Outcomes/Goals: Pt sets, maintains & shows weight loss goal & trend during rehab and Other additional outcomes/goals Intervention/Plan: Instruct on ideal BMI & set weight loss goal w/patient, Assist pt to ID & incorporate diet changes for weight loss by S9, Refer to Structured Weight Loss program as appropriate, Encourage goal of using 250-300dcal per session for weight loss and Other additional plan/interventions 30 day Reassessments:: Met Reassessment Notes & Comments:: Pt is at a healthy weight and has attended nutrition classes. Will continue to weigh pt weekly. Healthy Eating Habits Will attend diet classes:: Yes Outcomes/Goals:: Consume diet rich in vegs,fruits,whole grain/high fiber,fish,lean meat, Limit sat/trans fats,cholesterol & added salts & sugars and Other additional outcome/goals: Intervention/Plan:: Assess current eating habits and Other Additional plan/interventions 30-day Reassessments:: Met Reassessment Notes & Comments:: Pt is at a healthy weight and has attended nutrition classes. Will continue to weigh pt weekly. Education Gave educational materials for:: Signs & symptoms of hypoglycemia, Signs & symptoms of hyperglycemia, Relate diabetes to coronary artery disease and Healthy eating Core - Final Assessment Hypertension Resting Blood Pressure:: 118/60 [place] [employer] Hypertension Guidelines Core - 60-Day Assessment Visit Date of Eval: 04/26/25 Session #:: 22 Medication Compliance Preventative Medication(s):: Aspirin, Clopidogrel/P2Y12 inhibit, Statin/lipid and ARB (Angiotensi Rcap) H/O mental health issues: depression, anxiety, or addiction?: No Doesn?t believe in the benefits of treatment?: No Believes medications are unnecessary or harmful?: No Has a concern about medication side effects?: No Expresses concern over the cost of medications?: No Outcomes/Goals: Verbalizes medications,desired effect & common side effects @ DC, Pt self-reports following medication regimen, Keeps card in wallet w/medications listed by DC and Other additional outcome/goals: Interventions/plans: Instruct on medication effects & side effects, Review medication list w/patient every two weeks, Instruct importance of taking meds as ordered & assist problem solving and Other additional 30-day Reassessments:: Met Reassessment Notes & Comments:: Pt is currently taking meds as prescribed. Tobacco Use Tobacco Use: Non-smoker Hypertension Resting Blood Pressure:: 124/50 Resting Blood Pressure:: 118/60 [place] [employer] Hypertension Guidelines Peak Exercise Blood Pressure:: 164/60 Outcomes/Goals: Able to verbalize/achieve optimal blood pressure <130/80, Incorporates diet changes & exercise for blood pressure control by DC and Other additional outcomes/goals Interventions/plan: Instruct on optimal blood pressure, hypertension & medications, Instruct on effects of sodium, alcohol, stress, exercise &hypertension and Other additional plan/interventions 30 day Reassessments:: Progressing Reassessment Notes & Comments:: Pt's BP's are within AHA normal limits on some days. BP's have been improving. Tobacco Cessation Referral Smoking Cessation Referral:: No Individual Education/Counseling:: No Education Schedule Given:: Yes Psychosocial - 30-Day Assess Target Goals Target Goals Referral to Behavioral Health PS - Interventions: Yes: Attend Stress Management Classes Outcomes/Goals: See list Psychosocial Outcomes/Goals:: ID's personal stressors & 2 strategies to manage stress by discharge and Other Additional outcome/goals: Psychosocial - 60-Day Assess VIsit Date of Eval: 04/26/25 Session #:: 22 Target Goals Target Goals Psychosocial Test Tool Used:: PHQ-9 Questionnaire phq-9 Severity See PHQ-9 Score: 4 Referral to Behavioral Health PS - Interventions: Yes: Attend Stress Management Classes Outcomes/Goals: See list Psychosocial Outcomes/Goals:: ID's personal stressors & 2 strategies to manage stress by discharge and Other Additional outcome/goals: Intervention/Plan: See List Interventions/Plan:: Assess stressors,coping strategies & signs of derpression on admission, Instruct/assist pt to develop coping & personal stress Mgt strategies, Refer to Behavioral Health if appropriate, Refer to Physician if appropriate, Instruct patient to recognize signs & symptoms of depression, Instruct patient to recog and Other additional plan/intervention 30-day Reassessments: 30 day Reassessments:: Met Reassessment Notes & Comments:: Pt has attended stress management class. Pt denies any psychosocial issues at this time. Psychosocial - 90-Day Assess Target Goals Target Goals Referral to Behavioral Health PS - Interventions: Yes: Attend Stress Management Classes Psychosocial - Final Assessmen Target Goals Target Goals Referral to Behavioral Health PS - Interventions: Yes: Attend Stress Management Classes Nutrition - 90-Day Assessment Weight Mgt (Other Care) Height: 6 ft 3 in Weight:: 203 lb BMI: 25.3 Nutrition - Final Assessment Weight Mgt (Other Care) Height: 6 ft 3 in Weight:: 203 lb BMI: 25.3
[2025-04-26 08:13] VITALS: BP 118/60; BP 124/50; BMI 25.3
== END 2025-05-13 23:59 ==
LOC: CR 08:00
PROVIDERS: PCP Family Medicine; Referring Provider Internal Medicine Cardiovascular Disease; Visit Provider Internal Medicine Cardiovascular Disease
DX: I25.10 Atherosclerotic heart disease of native coronary artery without angina pectoris (principal); R94.39 Abnormal result of other cardiovascular function study; R07.9 Chest pain, unspecified; R42 Dizziness and giddiness; R53.83 Other fatigue
CPT/HCPCS: 93798

== ENCOUNTER 2025-05-31 08:00 | Outpatient (RCR) | payer MEDICARE, OTHER, SELFPAY ==
[2025-04-26 08:13] VITALS: BMI 25.3
--- NOTE | 2025-05-24 07:08 | CR.ITP_ITS ---
Exercise - Initial Assessment Physician Prescribed Exercise Modalities: Alix Mcfarland-7 and SciFit Stepper Nutrition - Initial Assessment Weight Mgt (Other Care) Height: 6 ft 3 in Weight:: 203 lb BMI: 25.3 Psychosocial - Initial Assess Target Goals Target Goals Referral to Behavioral Health PS - Interventions: Yes: Attend Stress Management Classes Patient Health Questionnaire PHQ-9 Screening 90-Day Re-eval Assessment: 1. Little interest or pleasure in doing things: Not at all 2. Feeling down, depressed, or hopeless: Not at all 3. Trouble falling or staying asleep, or sleeping too much: Several days 4. Feeling tired or having little energy: More than half the days 5. Poor appetite or overeating: Several days 6. Feeling bad about yourself -- or that you are a failure or have let yourself or your family down: Not at all 7. Trouble concentrating on things, such as reading the newspaper or watching television: Not at all 8. Moving or speaking so slowly that other people could have noticed. Or the opposite - being so fidgety or restless that you have been moving around a lot more than usual: Not at all 9. Thoughts that you would be better off , or of hurting yourself in some way: Not at all How difficult have these problems made it for you to do your work, take care of things at home, or get along with other people?: Not difficult at all Total Score: 4 Self-Efficacy 6-Item Scale 90-Day Re-eval Assessment: We would like to know how confident you are in doing certain activities. Please select your confidence level for: Fatigue Select Number: 8 Physical Discomfort or Pain Select Number: 8 Emotional Distress Select Number: 8 Other Symptoms or Health Problems Select Number: 8 Different Tasks and Activities Select Number: 9 Medication Select Number: 9 Total Score:: 8 Nutrition Survey Nutrition Survey Instructions Scoring Instructions Exercise - 30-day Assessment Physician Prescribed Exercise Modalities: Alix Mcfarland-7 and SciFit Stepper Exercise - 60-day Assessment Physician Prescribed Exercise Modalities: Alix Mcfarland-7 and SciFit Stepper Exercise - 90-day Assessment Visit Date of Eval: 05/24/25 Session #:: 32 Physician Prescribed Exercise Modalities: Rower, Schwinn Airdyne AD-7 and SciFit Stepper Frequency: 3x/week for 12 weeks [36 sessions] Intensity: 60-80% of age predicted maximum heart rate reserve Duration: 30 - 45 minutes Current METSs:: 8.1 Target Heart Rate:: 87-116 Current RPE:: 13 Maximum Excercise HR:: 109 Resting Blood Pressure: 138/52 Maximum Exercise Blood Pressure: 170/52 EKG Type: SB-ST with rare PAC, PVC Outcomes & Goals Goals:: Verbalizes understanding of THR, RPE & goal METS by session 6, Documents in home exercise log/reports 30 min aerobic 5 day/wk by DC, Demonstrates accurate pulse taking by DC and Other additional outcome/goals: see below Intervention & Plan Exercise Program Goals: Instruct on personal THR & RPE, Instruct on MET level & personal MET goal, Show patient to take own pulse /validate performance until accurate, Instruct on home exercise and Other additional plan/int Physical Activity Home Exercise Physical Activity - Home Exercise: Safe Exercise, Warm-up, Self-monitoring, Cool-Down, Home Exercise > 30 min Daily and Sitting Time <3 hours/daily Outcomes & Goals Outcomes/Goals: Demonstrates correct Warm-up/exercise Cool-Down (S3) if = 2.5 METs, Verbalizes symptoms of exercise intolerance by Session 3 (S3), Demonstrate safe equipment use (S3) & follows exercise prescrition (6) and Other: See below Intervention & Plan Plan/Intervention: Instruct warm-up & cool-down if exercising at > 2 METs, Instruct on symptoms of exercise intolerance & actions to take, Instruct & monitor on saf, Assess intial functional capacity & safety risk and Other See below 30-day Reassessments 30 day Reassessments:: Met Reassessment Notes & Comments:: Pt has done very well. Pr is at 8.1 METS. Pt has 4 sessions remaining. Upon graduation pt will be given his exercise prescr iption as well as community recourses to continue his exercise. Will continue to encourage. Exercise - Final/Discharge Physician Prescribed Exercise Modalities: Alix Mcfarland AD-7 and SciFit Stepper Nutrition - 30-Day Assessment Weight Mgt (Other Care) Height: 6 ft 3 in Weight:: 203 lb BMI: 25.3 Nutrition - 60-Day Assessment Program Goals Nutrition Program Goals Patient has diagnosis of Hyperlipidemia (ICD E78)?: Yes Visit Date of Eval: 05/24/25 Session #:: 32 Cholesterol/Lipids (Other Core Measures) Determine presence & major risk factors that modify LDL goal: Hypertension or hypertensive medication, Low HDL cholesterol <40 mg/dL*, Family history of premature CHD in Male < 55 years: female <65 yearsFa and Age men > 45 years; women >/= 55 years Outcomes/Goals: Pt IDs own risk factors & lifestyle modifications by Session 10, Verbalizes symptoms of angina & response by session 3., Pt independently manages and Other Additional Outcomes/Goals: Intervention/Plan: Advocate for lipid panel cholesterol medication if applicable, Instruct on personal lipid levels & lipid goals/NCEP guidelines, Instruct on cholesterol and Other additional plan/int Diabetes (Other Core Measures) Diabetes Type: Not Applicable Weight Mgt (Other Care) Height: 6 ft 3 in Weight:: 203 lb BMI: 25.3 Diagnosis Overweight/Obesity BMI> 30% ICD-10 E66: No Diagnosis High BMI/Morbid Obesity BMI> 35% ICD-10 Z68: No Outcomes/Goals: Pt sets, maintains & shows weight loss goal & trend during rehab and Other additional outcomes/goals Intervention/Plan: Instruct on ideal BMI & set weight loss goal w/patient, Assist pt to ID & incorporate diet changes for weight loss by S9, Refer to Structured Weight Loss program as appropriate, Encourage goal of using 250- 300dcal per session for weight loss and Other additional plan/interventions 30 day Reassessments:: Met Healthy Eating Habits Will attend diet classes:: Yes Outcomes/Goals:: Consume diet rich in vegs,fruits,whole grain/high fiber,fish,lean meat, Limit sat/trans fats,cholesterol & added salts & sugars and Other additional outcome/goals: Intervention/Plan:: Assess current eating habits and Other Additional plan/interventions 30-day Reassessments:: Met Reassessment Notes & Comments:: Pt is at a heathy weight. Pt has attended nutrition class and understands the benefits of a heart healthy low sodium diet. Education Gave educational materials for:: Signs & symptoms of hypoglycemia, Signs & symptoms of hyperglycemia, Relate diabetes to coronary artery disease and Healthy eating Core - 30-Day Assessment Hypertension [place] [employer] Hypertension Guidelines Reassessment Notes & Comments:: Pt's BP's are within AHA normal limits on some days. Will continue to monitor. Bp's are improving. Core - Final Assessment Hypertension [place] [employer] Hypertension Guidelines Reassessment Notes & Comments:: Pt's BP's are within AHA normal limits on some days. Will continue to monitor. Bp's are improving. Core - 90 Day Assessment Visit Date of Eval: 05/24/25 Session #:: 32 Medication Compliance Preventative Medication(s):: Aspirin, Clopidogrel/P2Y12 inhibit, Statin/lipid and ARB (Angiotensi Rcap) H/O mental health issues: depression, anxiety, or addiction?: No Doesn’t believe in the benefits of treatment?: No Believes medications are unnecessary or harmful?: No Has a concern about medication side effects?: No Expresses concern over the cost of medications?: No Outcomes/Goals: Verbalizes medications,desired effect & common side effects @ DC, Pt self-reports following medication regimen, Keeps card in wallet w/medications listed by DC and Other additional outcome/goals: Interventions/plans: Instruct on medication effects & side effects, Review medication list w/patient every two weeks, Instruct importance of taking meds as ordered & assist problem solving and Other additional 30-day Reassessments:: Met Reassessment Notes & Comments:: Pt is taking meds as prescribed. Tobacco Use Tobacco Use: Non-smoker Hypertension Hypertension Diagnosis:: Hypertension ICD-10 I10 Resting Blood Pressure:: 138/52 [place] [employer] Hypertension Guidelines Peak Exercise Blood Pressure:: 170/58 Outcomes/Goals: Able to verbalize/achieve optimal blood pressure <130/80, Incorporates diet changes & exercise for blood pressure control by DC and Other additional outcomes/goals Interventions/plan: Instruct on optimal blood pressure, hypertension & medications, Instruct on effects of sodium, alcohol, stress, exercise &hypertension and Other additional plan/interventions 30 day Reassessments:: Progressing Reassessment Notes & Comments:: Pt's BP's are within AHA normal limits on some days. Will continue to monitor. Bp's are improving. Tobacco Cessation Referral Smoking Cessation Referral:: No Individual Education/Counseling:: No Education Schedule Given:: Yes Psychosocial - 30-Day Assess Target Goals Target Goals Referral to Behavioral Health PS - Interventions: Yes: Attend Stress Management Classes Psychosocial - 60-Day Assess Target Goals Target Goals Referral to Behavioral Health PS - Interventions: Yes: Attend Stress Management Classes Psychosocial - 90-Day Assess VIsit Date of Eval: 05/24/25 Session #:: 32 History of previous Mental disease:: No Target Goals Target Goals Psychosocial Test Tool Used:: PHQ-9 Questionnaire phq-9 Severity See PHQ-9 Score: 4 Referral to Behavioral Health PS - Interventions: Yes: Attend Stress Management Classes Outcomes/Goals: See list Psychosocial Outcomes/Goals:: ID's personal stressors & 2 strategies to manage stress by discharge and Other Additional outcome/goals: Intervention/Plan: See List Interventions/Plan:: Assess stressors,coping strategies & signs of derpression on admission, Instruct/assist pt to develop coping & personal stress Mgt strategies, Refer to Behavioral Health if appropriate, Refer to Physician if appropriate, Instruct patient to recognize signs & symptoms of depression, Instruct patient to recog and Other additional plan/intervention 30-day Reassessments: 30 day Reassessments:: Met Reassessment Notes & Comments:: Pt has attended stress management class. Pt denies any psychosocial issues at this time. Psychosocial - Final Assessmen Target Goals Target Goals Referral to Behavioral Health PS - Interventions: Yes: Attend Stress Management Classes Nutrition - 90-Day Assessment Weight Mgt (Other Care) Height: 6 ft 3 in Weight:: 203 lb BMI: 25.3 Nutrition - Final Assessment Weight Mgt (Other Care) Height: 6 ft 3 in Weight:: 203 lb BMI: 25.3
[2025-05-24 07:20] VITALS: BP 138/52; BMI 25.3
== END 2025-06-13 23:59 ==
LOC: CR 08:00
PROVIDERS: PCP Family Medicine; Referring Provider Internal Medicine Cardiovascular Disease; Visit Provider Internal Medicine Cardiovascular Disease
DX: I25.10 Atherosclerotic heart disease of native coronary artery without angina pectoris (principal); R94.39 Abnormal result of other cardiovascular function study; R07.9 Chest pain, unspecified; R42 Dizziness and giddiness; R53.83 Other fatigue
CPT/HCPCS: 93798

== ENCOUNTER → 2025-06-05 | Outpatient (CLI) | payer MEDICARE, OTHER, SELFPAY ==
[2025-05-24 07:20] VITALS: BMI 25.3
--- NOTE | 2025-06-05 13:51 | VDLE_ITS ---
Reason For Study Reason For Study: Right leg swelling RIGHT LEFT GSV is normal. CFV is compressible, spontaneous, phasic, competent, CFV is compressible, spontaneous, phasic, competent and demonstrates normal augmentation. and demonstrates normal augmentation. FV is compressible, spontaneous, phasic, competent and demonstrates normal augmentation. POP V is compressible, spontaneous, phasic, competent and demonstrates normal augmentation. T/P Trunk is compressible. PTV is compressible. RT PerV is compressible. Nonvascularized structure noted in the distal calf area at area of concern. Does not appear to connect to the superficial vensous system. Procedure This is a venous duplex using B-mode, color flow and spectral Doppler. Exam performed in department. A preliminary report was called and/or faxed to Dr. Wilson. VL/Venous Duplex US, Unilateral Interpretation Summary Deep veins of the right lower extremity are patent and compressible segmentally . There is no evidence of right lower extremity deep vein thrombosis. The right great saphenous vein appears patent a nd compressible segmentally. Nonvascularized structure noted in the right distal calf area at area of concer n. Ordering Physician: Lawrence Wilson Referring Physician: Lawrence Wilson Performed By: Linh Brunson RVT
--- OUTSIDE RECORDS SUMMARY | 2025-06-05 20:03 | XMS RPT_ITS | CCD ---
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 Lawrence Wilson Primary Care Provider [phone] Dr. Lawrence Wilson Referring Provider Dr. Tucker Perry Attending Provider Dr. James Lama Attending Provider [phone] Tong Elliott Attending Provider [phone] Dr. Lawrence Wilson Primary Care Provider [phone] Dr. Lawrence Wilson Referring Provider Dr. Tucker Perry Attending Provider Dr. Lawrence Wilson Primary Care Provider [phone] Dr. Lawrence Wilson Referring Provider Dr. Tucker Perry Attending Provider [phone] NGOC Winston Attending Provider Dr. Lawrence Wilson Primary Care Provider [phone] Dr. Lawrence Wilson Referring Provider Dr. Tucker Perry Attending Provider Dr. Lawrence Wilson Primary Care Provider [phone] Dr. Lawrence Wilson Referring Provider Dr. Tucker Perry Attending Provider NGOC Winston Attending Provider NGOC Winston Referring Provider NGOC Winston Other Provider [phone] Dr. Michael Freeman Attending Provider Dr. Lawrence Wilson Primary Care Provider Dr. Lawrence Wilson Referring Provider Dr. Tucker Perry Attending Provider Pranav PA, PA Mai Esparza Attending Provider Dr. Lawrence Wilson Primary Care Provider Dr. Lawrence Wilson Referring Provider Pranav PA, PA Mai Esparza Attending Provider Dr. Jony Sosa Attending Provider Dr. Lawrence Wilson MD Primary Care Provider Dr. Lawrence Wilson MD Attending Provider Dr. Lawrence Wilson MD Referring Provider Dr. Lawrence Wilson MD Other Provider Dr. Michael Freeman MD Attending Provider Mai Winston Attending Provider [phone] Mai Winston Referring Provider [phone] Dr. Michael Freeman MD Admit Provider [phone] Michael Freeman MD Referring Provider Dr. Michael Freeman MD Other Provider [phone] Tremayne Loyola MD Attending Provider Dr. Maged Watts MD Attending Provider Dr. Maged Watts MD Referring Provider Nessa Taylor Attending Provider Dr. Tucker Perry DO Attending Provider Dr. Tucker Perry DO Referring Provider Dr. Lawrence Wilson MD Primary Care Provider Dr. Lawrence Wilson MD Attending Provider Dr. Lawrence Wilson MD Referring Provider Lydia, [place] Referring Unavailable Lydia, Michael Attending Unavailable Schinner, Lawrence E Primary Care Unavailable Schinner, Lawrence E Consulting Unavailable Schinner, Lawrence E Primary Care Unavailable Schinner, Lawrence E Referring Unavailable Lydia, [place] Attending Unavailable Lor Tucker Referring Unavailable Tucker Perry Attending Unavailable Schinner, Lawrence E Primary Care Unavailable Mac, Maged Referring Unavailable Schinner, Lawrence E Primary Care Unavailable Mac, Maged Attending Unavailable Lydia, [place] Admitting Unavailable Lydia, [place] Consulting Unavailable Lor Tucker Referring Unavailable Tucker Perry Attending Unavailable Schinner, Lawrence E Consulting Unavailable Schinner, Lawrence E Primary Care Unavailable Mac, Maged Referring Unavailable Schinner, Lawrence E Primary Care Unavailable Mac, Maged Attending Unavailable Schinner, Lawrence E Primary Care Unavailable Schinner, Lawrence E Referring Unavailable Schinner, Lawrence E Attending Unavailable Mac, Maged Referring Unavailable Mac, Maged Attending Unavailable Schinner, Lawrence E Primary Care Unavailable Schinner, Lawrence E Primary Care Unavailable Lydia, [place] Referring Unavailable Lydia, Michael Attending Unavailable Lydia, [place] Admitting Unavailable Mac, Maged Referring Unavailable Mac, Maged Attending Unavailable Schinner, Lawrence E Primary Care Unavailable Mac, Maged Attending Unavailable Schinner, Lawrence E Primary Care Unavailable Mac, Maged Referring Unavailable Schinner, Lawrence E Primary Care Unavailable Mac, Maged Attending Unavailable Schinner, Lawrence E Attending Unavailable Schinner, Lawrence E Primary Care Unavailable Schinner, Lawrence E Referring Unavailable SchinnerLawrence Attending Unavailable Schinner, Lawrence E Primary Care Unavailable Schinner, Lawrence E Referring Unavailable Schinner, Lawrence E Primary Care Unavailable Mai Winston Referring Unavail able Mai Winston Attending Unavail able Tucker Perry Attending Unavailable SchLawrence galvin Primary Care Unavailable SchabdifatahnerLawrence Referring Unavailable Schinner, Lawrence E Primary Care Unavailable SchabdifatahnerLawrence E Referring Unavailable Mai Winston Attending Unavail able Tucker Perry Attending Unavailable Lawrence Wilson Primary Care Unavailable Lawrence Wilson Referring Unavailable Lawrence Wilson Primary Care Unavailable Lawrence Wilson Referring Unavailable Nessa Melissa NP Attending Unavailable Allergies Allergy Classification Reported Allergen(s) Allergy Type Date of Onset Reaction(s) Facility (20 sources) atorvastatin Drug Allergy 03-04-2022 myalgias [facility] (20 sources) pitavastatin Drug Allergy 03-04-2022 Myalgias [facility] (20 sources) rosuvastatin Drug Allergy 03-04-2022 Myalgias [facility] (1 source) atorvastatin Drug Allergy 03-29-2025 [facility] (1 source) pitavastatin Drug Allergy 03-29-2025 [facility] (1 source) rosuvastatin Drug Allergy 03-29-2025 [facility] Medications Current Medications Medication Drug Class(es) Dates Sig (Normalized) Sig (Original) amLODIPine 2.5 mg oral tablet (9 sources) Dihydropyridine Calcium Channel Colten Start: 02-05-2025 take 1 tablet by mouth once daily Amlodipine 2.5 mg tablet Active 2.5 mg PO daily 30 February 05, 2025 12:00am aspirin 81 mg delayed release oral tablet (20 sources) Platelet Aggregation Inhibitor, Nonsteroidal Anti-inflammatory Drug Start: 04-28-2021 take 1 tablet by mouth once daily Aspirin (Adult Aspirin Regimen) 81 mg tablet,delayed release (DR/EC) Active 81 mg PO DAILY April 28, 2021 12:00am clopidogrel 75 mg oral tablet (20 sources) [id number] Platelet Inhibitor Start: 02-20-2025 take 1 tablet by mouth once daily Clopidogrel 75 mg Tablet Active 75 mg PO DAILY February 20, 2025 12:00am Start: 06-22-2021 End: 03-25-2023 take 1 tablet by mouth once daily Clopidogrel 75 mg tablet Discontinued 75 mg PO DAILY 12 11August 12, 2021 10:51am August 26, 2022 8:57am For cardiac cath 1 ml evolocumab 140 mg/ml auto-injector (8 sources) PCSK9 Inhibitor Start: 03-22-2025 End: 03-25-2025 Evolocumab (Repatha Sureclick) 140 mg/mL pen injector Active 140 mg SC every 2 weeks 2 March 25, 2025 10:19am ezetimibe 10 mg oral tablet (20 sources) Dietary Cholesterol Absorption Inhibitor Start: 04-28-2021 take 1 tablet by mouth once daily Ezetimibe (Zetia) 10 mg tablet Active 10 mg PO DAILY April 28, 2021 12:00am losartan potassium 50 mg oral tablet (9 sources) Angiotensin 2 Receptor Colten Start: 02-05-2025 take 1 tablet by mouth once daily Losartan 50 mg tablet Active 50 mg PO daily February 05, 2025 12:00am meloxicam 15 mg oral tablet (20 sources) Nonsteroidal Anti-inflammatory Drug Start: 04-28-2021 take 1 tablet by mouth once daily Meloxicam (Mobic) 15 mg tablet Active 15 mg PO DAILY April 28, 2021 12:00am Multivit With Min-Folic Acid (Adult One Daily Multivitamin) 0.4 mg tablet (20 sources) Start: 04-28-2021 take 1 tablet by mouth once daily Multivit With Min-Folic Acid (Adult One Daily Multivitamin) 0.4 mg tablet Active 1 TABLET PO DAILY April 28, 2021 9:44am Start: 04-28-2021 take 1 tablet by gayle th once daily Multivit With Min-Folic Acid (Adult One Daily Multivitamin) 0.4 mg tablet Active 1 {tbl} PO DAILY April 28, 2021 12:00am Start: 04-28-2021 take 1 tablet by gayle th once daily Multivit With Min-Folic Acid (Adult One Daily Multivitamin) 0.4 mg tablet Active 1 TABLET PO DAILY April 27, 2021 11:00pm Start: 04-28-2021 take 1 tablet by gayle th once daily Multivit With Min-Folic Acid (Adult One Daily Multivitamin) 0.4 mg tablet Active 1 TABLET PO DAILY April 28, 2021 12:00am tadalafil 5 mg oral tablet (20 sources) Phosphodiesterase 5 Inhibitor Start: 04-28-2021 End: 03-04-2022 take 1 tablet by mouth once daily as needed Tadalafil (Cialis) 5 mg tablet Active 5 mg PO DAILY as needed for sexual activity March 04, 2022 3:49pm tamsulosin hydrochloride 0.4 mg oral capsule (20 sources) alpha-Adrenergic Colten Start: 04-28-2021 take 1 capsule by mouth at bedtime Tamsulosin (Flomax) 0.4 mg capsule Active 0.4 mg PO AT BEDTIME April 28, 2021 12:00am Completed/Discontinued Medications Medication Drug Class(es) Dates Sig (Normalized) Sig (Original) cyclobenzaprine hydrochloride 10 mg oral tablet (20 sources) Muscle Relaxant Start: 12-31-2016 End: 05-07-2021 take 1 tablet by mouth three times daily as needed for muscle spasms Cyclobenzaprine 10 MG tablet Discontinued 10 mg PO THREE TIMES A DAY as needed for Muscle Spasm 20 0 December 31, 2016 1:00am May 07, 2021 1:56pm linseed oil 1000 mg oral capsule (20 sources) Start: 04-28-2021 End: 12-19-2023 take 1 capsule by mouth once daily Flaxseed Oil 1,000 mg capsule Discontinued 1000 mg PO DAILY April 28, 2021 12:00am December 19, 2023 10:01am administer with a meal ubidecarenone 100 mg oral capsule (20 sources) Start: 04-28-2021 End: 08-26-2022 Coenzyme Q10 (Co Q-10) 100 mg capsule Discontinued 100 mg PO DAILY April 28, 2021 12:00am August 26, 2022 8:33am Problems Active Problems Problem Classification Problem Date Documented Date Episodic/Chronic Cancer of prostate (20 sources) History of malignant neoplasm of prostate; Translations: [Personal history of malignant neoplasm of prostate] Onset: 02-19-2025 Episodic Cardiac dysrhythmias (20 sources) Sinus bradycardia; Translations: [Bradycardia, unspecified] 04-28-2021 Episodic Conditions associated with dizziness or vertigo (20 sources) Dizziness; Translations: [Dizziness and giddiness] Episodic Conditions associated with dizziness or vertigo (7 sources) Conditions associated with dizziness or vertigo; Translations: [Abnormal cardiovascular stress test] Coronary atherosclerosis and other heart disease (20 sources) Coronary atherosclerosis; Translations: [Atherosclerotic heart disease of [place] coronary artery without angina pectoris] Onset: 10-22-2024 Chronic Coronary atherosclerosis and other heart disease (20 sources) Stented coronary artery; Translations: [Presence of coronary angioplasty implant and graft] Onset: 07-15-2021 Episodic Comment on above: Successful percutane ous coronary intervention, of mid LAD 70% eccentric stenosis with BRETT-3 flow pre-procedure; Post procedure following predilatation using 2.5 x 15 mm emerge balloon and placement of drug-eluting stent 3.5 x 22 mm drug-eluting stent/Annette per Dr. Taylor 08/11/21 Successful percutane ous coronary intervention, of mid LAD 70% eccentric stenosis with BRETT-3 flow pre-procedure; Post procedure following predilatation using 2.5 x 15 mm emerge balloon and placement of drug-eluting stent 3.5 x 22 mm drug-eluting stent/Annette per Dr. Taylor 08/11/21; 3.0 x 15 ROSAS FRONTIER SHERIN to mLAD 02/19/25 Coronary atherosclerosis and other heart disease (1 source) Coronary atherosclerosis and other heart disease Disorders of lipid metabolism (20 sources) Mixed hyperlipidemia; Translations: [Mixed hyperlipidemia] Onset: 03-12-2025 Chronic Essential hypertension (20 sources) Essential hypertension; Translations: [Essential (primary) hypertension] Onset: 03-04-2025 02-06-2025 Chronic Malaise and fatigue (20 sources) Fatigue; Translations: [Other fatigue] 05-07-2021 Episodic Nonspecific chest pain (20 sources) Chest pain; Translations: [Chest pain, unspecified] Onset: 03-04-2025 06-22-2021 Episodic Occlusion or stenosis of precerebral arteries (2 sources) Occlusion and stenosis of bilateral carotid arteries; Translations: [Occlusion and stenosis of bilateral carotid arteries] Onset: 02-08-2025 Chronic Other circulatory disease (20 sources) Disorder of carotid artery; Translations: [Disorder of arteries and arterioles, unspecified] 04-28-2021 Chronic Other circulatory disease (2 sources) Disorder of arteries and arterioles, unspecified; Translations: [Unspecified disorders of arteries and arterioles] Chronic Other lower respiratory disease (20 sources) Dyspnea; Translations: [Shortness of breath] 05-07-2021 Episodic Past or Other Problems Problem Classification Problem Date Documented Date Episodic/Chronic Deficiency and other anemia (1 source) Anemia, unspecified; Translations: [Anemia, unspecified] Onset: 01-16-2025 Episodic Other lower respiratory disease (1 source) Shortness of breath; Translations: [Shortness of breath] Onset: 02-08-2025 Episodic Other screening for suspected conditions (not mental disorders or infectious disease) (19 sources) Cardiovascular stress test abnormal; Translations: [Abnormal result of other cardiovascular function study] Onset: 02-11-2025 02-05-2025 Episodic Results Test Name Value Interpretation Reference Range Facility Radiation Oncology Visiton 0 03-29-2025 Radiation Oncology Visit [facility] [address] [place] [address] OFFICE VISIT Date of Service: 03/29/25 0840 MR#: [id number] Acct: [id number] Name: ABRAHAN CALVERT Rep #: [id number] : 1950 From: Tucker Lor MURRAY Age/Sex: 74/M Location: [facility] Status: Signed Intake Vital Signs 09/28/24 08:27 03/29/25 07:14 03/29/25 08:44 Height 6 ft 3 in 6 ft 3 in 6 ft 3 in Weight: 204 lb 6 oz BMI 25.5 BP 114/68 Blood Pressure Location Rt brachial Position Sitting Respiration 16 Pulse 55 L Pulse Source Monitor Temp 96.7 F L Temperature Source Temporal Artery Pulse Oximetry (%) 98 Intake Visit Reasons: 6 MONTH PROSTATE Is patient in pain?: No Allergies atorvastatin Adverse Reaction (Severe, Verified 03/29/25 08:44) myalgias pitavastatin (From Livalo) Adverse Reaction (Severe, Verified 03/29/25 08:44) Myalgias rosuvastatin Adverse Reaction (Severe, Verified 03/29/25 08:44) Myalgias Medications ???Medication ???Instructions ???Recorded ???Confirmed ???Type aspirin 81 mg tablet,delayed 81 mg PO DAILY 04/28/21 03/29/25 H istory release (Adult Aspirin Regimen) ezetimibe 10 mg tablet (Zetia) 10 mg PO DAILY 04/28/21 03/29/25 H istory meloxicam 15 mg tablet (Mobic) 15 mg PO DAILY 04/28/21 03/29/25 H istory multivitamin with minerals-folic 1 tab PO DAILY 04/28/21 03/29/25 H istory acid 0.4 mg tablet (Adult One Daily Multivitamin) tamsulosin 0.4 mg capsule (Flomax) 0.4 mg PO QHS 04/28/21 03/29/25 History tadalafil 5 mg tablet (Cialis) 5 mg PO DAILY PRN sexual activity 03/04/22 03/29/25 History amlodipine 2.5 mg tablet 2.5 mg PO QDAY #30 tabs 02/05/25 0 03/29/25 Rx losartan 50 mg tablet 50 mg PO QDAY 02/05/25 03/29/25 Hi story clopidogrel 75 mg tablet 75 mg PO DAILY #90 tabs 02/20/25 0 03/29/25 Rx evolocumab 140 mg/mL subcutaneous 140 mg subcut Q2W #2 mL 03/25/25 03/29/25 Rx pen injector (Repatha SureClick) Have you fallen in the past year?: No PFSH PFSH Medical History Essential hypertension Abnormal stress test Atherosclerotic heart disease of [place] coronary artery without angina pectoris Bilateral carotid artery disease History of prostate cancer (02/19/25) Sinus bradycardia Mixed hyperlipidemia Home Medications ???Medication ???Instructions ???Recorded ???Last Taken ???Type aspirin 81 mg tablet,delayed 81 mg PO DAILY 04/28/21 02/19/25 H istory release (Adult Aspirin Regimen) ezetimibe 10 mg tablet (Zetia) 10 mg PO DAILY 04/28/21 Unknown Hi story meloxicam 15 mg tablet (Mobic) 15 mg PO DAILY 04/28/21 Unknown Hi story multivitamin with minerals-folic 1 tab PO DAILY 04/28/21 02/19/25 H istory acid 0.4 mg tablet (Adult One Daily Multivitamin) tamsulosin 0.4 mg capsule (Flomax) 0.4 mg PO QHS 04/28/21 Unknown H istory tadalafil 5 mg tablet (Cialis) 5 mg PO DAILY PRN sexual activity 03/04/22 Unknown History amlodipine 2.5 mg tablet 2.5 mg PO QDAY #30 tabs 02/05/25 0 02/19/25 Rx losartan 50 mg tablet 50 mg PO QDAY 02/05/25 Unknown His tory clopidogrel 75 mg tablet 75 mg PO DAILY #90 tabs 02/20/25 U nknown Rx evolocumab 140 mg/mL subcutaneous 140 mg subcut Q2W #2 mL 03/25/25 Unknown Rx pen injector (Repatha SureClick) Allergy/AdvReac Type Severity Reaction Status Date / Time atorvastatin AdvReac Severe myalgias Verified 03/29/25 08:44 pitavastatin (From Livalo) AdvReac Severe Myalgias Verified 03/29/25 08:44 rosuvastatin AdvReac Severe Myalgias Verified 03/29/25 08:44 Surgical History Presence of stent in coronary artery (03/25/25) Presence of coronary angioplasty implant and graft ( 08/11/21) History of tonsillectomy History of appendectomy History of left inguinal hernia repair Social History Smoking Status: Never smoker alcohol intake: current details: occasional substance use type: does not use caffeine: Yes Type: tea Diagnosis: Abrahan Calvert is a 74-year-old male diagnosed with 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 History of Present Illness: 07/01/2017: TRUS guided prostate biopsy was performed.??? This demonstrated [place] 3+3 adenocarcinoma involving about 1% of 1/2 cores in the right prostate mid, and Lizbeth score 3+4 adenocarcinoma involving about 5% of 1/2 cores in the right prostate base.??? Remaining 10 biopsy cores were negative for prostate cancer. 07/14/2017: Bone scan was performed.??? This (more content not included)... Normal [facility] PSA,Total- Diagnosticon 05- PSA, DIAGNOSTIC 0.84 ng/mL Normal 0.00-4.00 [facility] Comment on above: Result Comment: This test was performed using the [facility] [employer] tPSA method. Measured values of a patient??sample can vary depending on the testing procedure used. PSA values determined on patient samples by different testing procedures cannot be used interchangeably. If there is a change in PSA assays while monitoring therapy, sequential testing should be performed to confirm baseline values. Performed By: #### L 582.1362 ####[facility] [address] [place], [address] Absolute lymphocyte countOrd ered By: Lawrence Wilson on 03-07-2025 Lymphocytes Auto (Unsp spec) [#/Vol] 1.46 10*3/uL 0.83-4.51 [facility] Absolute neutrophil countOrd ered By: Lawrence Wilson on 03-07-2025 Neutrophils (Bld) [#/Vol] 3.4 10*3/uL 2.0-7.7 [facility] Anion gap in Serum or Plasma Ordered By: Lawrence Wilson on 03-07-2025 Anion gap [Moles/Vol] 11 mmol/L 5-[address] [facility] Automated lymphocyte count a s percentage of total leukocytesOrdered By: Lawrence Wilson on 03-07-2025 Lymphocytes/100 WBC Auto (Unsp spec) 25.3 % 19-41 [facility] BUN/creatinine ratioOrdered By: Lawrence Wilson on 03-07-2025 Urea nitrogen/Creatinine [Mass ratio] 25.2 mg/mg High 10-20 [facility] Basophil percentageOrdered B y: Lawrence Wilson on 03-07-2025 Basophils/100 WBC (Bld) 0.9 % 0-1 [facility] Bilirubin, totalOrdered By: Lawrence Wilson on 03-07-2025 Bilirubin [Mass/Vol] 0.41 mg/dL 0.00-1.30 [facility] CBC W/Diff, Automatedon 02-13 Absolute Lymph 1.46 X10 3/uL Normal 0.83-4.51 [facility] Comment on above: Performed By: #### L 500.4100, L500.4050, L100.0100 #### [facility] [address] [place], [address] Absolute Neut 3.4 X10 3/uL Normal 2.0-7.7 [facility] Comment on above: Performed By: #### L 500.4100, L500.4050, L100.0100 #### [facility] [address] [place], [address] Basophils/100 WBC (Bld) 0.9 % Normal 0-1 [facility] Comment on above: Performed By: #### L 500.4100, L500.4050, L100.0100 #### [facility] [address] [place], [address] Eosinophils/100 WBC (Bld) 2.1 % Normal 0-5 [facility] Comment on above: Performed By: #### L 500.4100, [id number], L100.0100 #### [facility] [address] [place], [address] Erythrocyte distribution width (RBC) [Ratio] 14.1 % Normal 11.6-14.6 [facility] Comment on above: Performed By: #### L 500.4100, [id number], L100.0100 #### [facility] [address] [place], [address] Hematocrit (Bld) [Volume fraction] 36.9 % Low 40-54 [facility] Comment on above: Performed By: #### L 500.4100, L500.4050, L100.0100 #### [facility] [address] [place], [address] Hemoglobin (Bld) [Mass/Vol] 12.0 g/dL Low 13.0-16.5 [facility] Comment on above: Performed By: #### L 500.4100, L500.4050, L100.0100 #### [facility] [address] [place], [address] IG% 0.200 Normal 0.0-0.9 [facility] Comment on above: Result Comment: IG% - Immature Granulocytes (promyelocytes, myelocytes and metamyelocytes) > 1% indicates that a LEFT SHIFT is Present. Performed By: #### L 500.4100, L500.4050, L100.0100 #### [facility] [address] [place], [address] Lymphocytes/100 WBC (Bld) 25.3 % Normal 19-41 [facility] Comment on above: Performed By: #### L 500.4100, L500.4050, L100.0100 #### [facility] [address] [place], [address] MCH (RBC) [Entitic mass] 30.2 pg Normal 27.0-32.0 [facility] Comment on above: Performed By: #### L 500.4100, [id number], L100.0100 #### [facility] [address] [place], [address] MCHC (RBC) [Mass/Vol] 32.5 g/dL Normal 32-[address] [facility] Comment on above: Performed By: #### L 500.4100, [id number], L100.0100 #### [facility] [address] [place], [address] MCV (RBC) [Entitic vol] 92.9 fL Normal 80-94 [facility] Comment on above: Performed By: #### L 500.4100, [id number], L100.0100 #### [facility] [address] [place], [address] Monocytes/100 WBC (Bld) 12.0 % High 0-10 [facility] Comment on above: Performed By: #### L 500.4100, [id number], L100.0100 #### [facility] [address] [place], [address] Neutrophils/100 WBC (Bld) 59.5 % Normal 47-70 [facility] Comment on above: Performed By: #### L 500.4100, [id number], L100.0100 #### [facility] [address] [place], [address] Nucleated RBC (Bld) [#/Vol] 0 10*3/uL Normal 0-5 [facility] Comment on above: Performed By: #### L 500.4100, [id number], L100.0100 #### [facility] [address] [place], [address] Platelet mean volume (Bld) [Entitic vol] 11.1 fL Normal 6.2-12.0 [facility] Comment on above: Performed By: #### L 500.4100, L500.4050, L100.0100 #### [facility] [address] [place], [address] Platelets (Bld) [#/Vol] 225 10*3/uL Normal 150-450 [facility] Comment on above: Performed By: #### L 500.4100, [id number], L100.0100 #### [facility] [address] [place], [address] RBC (Bld) [#/Vol] 3.97 10*6/uL Low 4.6-6.2 [facility] Comment on above: Performed By: #### L 500.4100, [id number], L100.0100 #### [facility] [address] [place], [address] RDW SD 48.4 fl High 35.1-43.9 [facility] Comment on above: Performed By: #### L 500.4100, [id number], L100.0100 #### [facility] [address] [place], [address] WBC (Bld) [#/Vol] 5.8 10*3/uL Normal 4.4-11.0 [facility] Comment on above: Performed By: #### L 500.4100, [id number], L100.0100 #### [facility] [facility] [address] [place], [address] Calculated very low density lipoprotein (VLDL) cholesterol measurementOrdered By: Lawrence Wilson on 03-07-2025 Calculated very low density lipoprotein (VLDL) cholesterol measurement 33 mg/dL 5-40 [facility] VLDL Cholesterol 33 mg/dL 5-40 [facility] Carbon dioxide, total [Moles /volume] in Central venous bloodOrdered By: Lawrence Wilson on 03-07-2025 CO2 [Moles/Vol] 23.4 mmol/L 21.0-32.0 [facility] Chloride assayOrdered By: Leah Wilson on 03-07-2025 Chloride [Moles/Vol] 105 mmol/L 98-108 [facility] Comprehensive Metabolic Prof ilon 03-07-2025 Albumin [Mass/Vol] 4.2 g/dL Normal 3.4-4.8 [facility] Comment on above: Performed By: #### L 500.4100, L500.4050, L100.0100 #### [facility] [address] [place], [address] Albumin/Globulin [Mass ratio] 1.4 {ratio} Normal 0.9-2.4 [facility] Comment on above: Performed By: #### L 500.4100, L500.4050, L100.0100 #### [facility] [address] [place], [address] ALK PHOS 80 U/L Normal 40-129 [facility] Comment on above: Performed By: #### L 500.4100, L500.4050, L100.0100 #### [facility] [address] [place], [address] ALT [Catalytic activity/Vol] 22 U/L Normal <=46 [facility] Comment on above: Performed By: #### L 500.4100, L500.4050, L100.0100 #### [facility] [address] [place], [address] AST [Catalytic activity/Vol] 25 U/L Normal <=37 [facility] Comment on above: Performed By: #### L 500.4100, L500.4050, L100.0100 #### [facility] [address] [place], [address] Bilirubin [Mass/Vol] 0.41 mg/dL Normal 0.00-1.30 [facility] Comment on above: Performed By: #### L 500.4100, L500.4050, L100.0100 #### [facility] [address] [place], [address] BUN/CRE 25.2 RATIO High 10-20 [facility] Comment on above: Performed By: #### L 500.4100, L500.4050, L100.0100 #### [facility] [address] [place], [address] Calcium [Mass/Vol] 8.8 mg/dL Normal 7.6-11.0 [facility] Comment on above: Performed By: #### L 500.4100, L500.4050, L100.0100 #### [facility] [address] [place], [address] Chloride [Moles/Vol] 105 mmol/L Normal 98-108 [facility] Comment on above: Performed By: #### L 500.4100, L500.4050, L100.0100 #### [facility] [address] [place], [address] CO2 [Moles/Vol] 23.4 mmol/L Normal 21.0-32.0 [facility] Comment on above: Performed By: #### L 500.4100, L500.4050, L100.0100 #### [facility] [address] [place], [address] Creatinine [Mass/Vol] 1.15 mg/dL Normal 0.70-1.[address] [facility] Comment on above: Performed By: #### L 500.4100, L500.4050, L100.0100 #### [facility] [address] [place], [address] GAP 11 Normal 5-15 [facility] Comment on above: Performed By: #### L 500.4100, L500.4050, L100.0100 #### [facility] [address] [place], [address] GFR/1.73 sq M.predicted among non-blacks MDRD (S/P/Bld) [Vol rate/Area] 66 mL/min/{1.73_m2} Normal >60 [facility] Comment on above: Result Comment: mL/m in/1.73m2 CKD-EPI Creatinine Equation (2020) Performed By: #### L 500.4100, L500.4050, L100.0100 #### [facility] [address] [place], [address] Globulin (S) [Mass/Vol] 3.0 g/dL Normal 2.2-4.2 [facility] Comment on above: Performed By: #### L 500.4100, L500.4050, L100.0100 #### [facility] [address] [place], [address] Glucose [Mass/Vol] 113 mg/dL High 70-99 [facility] Comment on above: Performed By: #### L 500.4100, L500.4050, L100.0100 #### [facility] [address] [place], [address] Potassium [Moles/Vol] 4.3 mmol/L Normal 3.3-5.[address] [facility] Comment on above: Performed By: #### L 500.4100, L500.4050, L100.0100 #### [facility] [address] [place], [address] Sodium [Moles/Vol] 138 mmol/L Normal 133-145 [facility] Comment on above: Performed By: #### L 500.4100, L500.4050, L100.0100 #### [facility] [address] [place], [address] T PROT 7.2 g/dL Normal 5.9-8.4 [facility] Comment on above: Performed By: #### L 500.4100, L500.4050, L100.0100 #### [facility] [address] [place], [address] Urea nitrogen [Mass/Vol] 29 mg/dL High 4-19 [facility] Comment on above: Performed By: #### L 500.4100, L500.4050, L100.0100 #### [facility] [address] [place], [address] Eosinophil percentageOrdered By: Lawrence Wilson on 03-07-2025 Eosinophils/100 WBC (Bld) 2.1 % 0-5 [facility] Erythrocyte distribution wid th (RBC) [Ratio]Ordered By: Lawrence Wilson on 03-07-2025 Erythrocyte distribution width (RBC) [Entitic vol] 48.4 fL High 35.1-43.9 [facility] Erythrocyte distribution wid th ratioOrdered By: Lawrence Wilson on 03-07-2025 Erythrocyte distribution width (RBC) [Ratio] 14.1 % 11.6-14.6 [facility] Erythrocyte distribution wid th standard deviationOrdered By: Lawrence Wilson on 03-07-2025 Erythrocyte distribution width (RBC) [Ratio] 48.4 fl High 35.1-43.9 [facility] GFR/1.73 sq M.predicted jamie g non-blacks MDRD (S/P/Bld) [Vol rate/Area]Ordered By: Lawrence Wilson on 03-07-2025 Estimated GFR (MDRD) Non-Af Amer 66 >60 [facility] Comment on above: mL/min/1.73m2 CKD-EP I Creatinine Equation (2020) Glomerular filtration rate ( GFR) estimation/1.73 sq m using serum, plasma, or whole bOrdered By: Lawrence Wilson on 03-07-2025 GFR/1.73 sq M.predicted among non-blacks MDRD (S/P/Bld) [Vol rate/Area] 66 mL/min/{1.73_m2} >60 [facility] Comment on above: mL/min/1.73m2 CKD-EP I Creatinine Equation (2020) Hematocrit Auto (Bld) [Volum e fraction]Ordered By: Lawrence Wilson on 03-07-2025 Hematocrit (Bld) [Volume fraction] 36.9 % Low 40-54 [facility] Hemoglobin measurementOrdere d By: Lawrence Wilson on 03-07-2025 Hemoglobin (Bld) [Mass/Vol] 12.0 g/dL Low 13.0-16.5 [facility] Immature granulocytes/100 WB C Auto (Bld)Ordered By: Lawrence Wilson on 03-07-2025 Immature granulocytes/100 WBC (Bld) 0.200 % 0.0-0.9 [facility] Comment on above: IG% - Immature Granu locytes (promyelocytes, myelocytes and metamyelocytes) > 1% indicates that a LEFT SHIFT is Present. LDL calc ser/plasOrdered By: Lawrence Wilson on 03-07-2025 Cholesterol in LDL [Mass/Vol] 79 mg/dL [facility] Comment on above: Rjongavjxi=651-717 m g/dL & Higher Bbeg=613 mg/dL or greater LDL Cholesterol, Calculated 79 mg/dL [facility] Comment on above: Slcswjgqro=326-721 m g/dL & Higher Bbyn=212 mg/dL or greater Laboratory - Chemistry and C hemistry - challengeOrdered By: Lawrence Wilson on 03-07-2025 AST [Catalytic activity/Vol] 25 U/L <38 [facility] Lipid Profileon 03-07-2025 CHOL:HDL 3.32 Normal [facility] Comment on above: Performed By: #### L 500.4100, L500.4050, L100.0100 #### [facility] [address] [place], [address] Cholesterol [Mass/Vol] 160 mg/dL Normal <=200 [facility] Comment on above: Result Comment: Chol esterol level, Desirable <200 mg/dL Borderline high cholesterol 200-239 mg/dL High cholesterol >=240 mg/dL Recommendations of the NCEP Adult Treatment Panel for the following risk-cutoff thresholds for the [place] population. Performed By: #### L 500.4100, L500.4050, L100.0100 #### [facility] [address] [place], [address] Cholesterol in HDL [Mass/Vol] 48 mg/dL Normal [facility] Comment on above: Result Comment: Camilla onal Cholesterol Education Program (NCEP) guidelines: <40 mg/dL: Low HDL-cholesterol (major risk factor for CHD) >= 60 mg/dL: High HDL-cholesterol (negative risk factor for CHD) HDL-cholesterol is affected by a number of factors, e.g. smoking, exercise, hormones, sex and age. Performed By: #### L 500.4100, L500.4050, L100.0100 #### [facility] [address] [place], [address] Cholesterol in LDL [Mass/Vol] 79 mg/dL Normal [facility] Comment on above: Result Comment: Bord vwuriy=770-389 mg/dL Higher Xzvr=490 mg/dL or greater Performed By: #### L 500.4100, L500.4050, L100.0100 #### [facility] [address] [place], [address] Cholesterol in VLDL [Mass/Vol] 33 mg/dL Normal 5-40 [facility] Comment on above: Performed By: #### L 500.4100, L500.4050, L100.0100 #### [facility] [address] [place], [address] Triglyceride [Mass/Vol] 163 mg/dL Normal [facility] Comment on above: Result Comment: The drugs N-Acetylcysteine and Metamizole may falsely depress this assay. Normal range: <150 mg/dL Borderline High: 150-199 mg/dL High: 200-499 mg/dL Very High: >500 mg/dL Performed By: #### L 500.4100, L500.4050, L100.0100 #### [facility] [address] [place], [address] Lymphocytes Auto (Unsp spec) [#/Vol]Ordered By: Lawrence Wilson on 03-07-2025 Lymphocytes (Bld) [#/Vol] 1.46 10*3/uL 0.83-4.51 [facility] Lymphocytes/100 WBC Auto (Un sp spec)Ordered By: Lawrence Wilson on 03-07-2025 Lymphocytes/100 WBC (Bld) 25.3 % 19-41 [facility] MCV (mean corpuscular volume ) determinationOrdered By: Lawrence Wilson on 03-07-2025 MCV (RBC) [Entitic vol] 92.9 fL 80-94 [facility] Mean corpuscular hemoglobin (MCH) determinationOrdered By: Lawrence Wilson on 03-07-2025 MCH (RBC) [Entitic mass] 30.2 pg 27.0-32.0 [facility] Mean corpuscular hemoglobin concentration (MCHC) determinationOrdered By: Lawrence Wilson on 03-07-2025 MCHC (RBC) [Mass/Vol] 32.5 g/dL 32-[address] [facility] Mean platelet volume determi nationOrdered By: Lawrence Wilson on 03-07-2025 Platelet mean volume (Bld) [Entitic vol] 11.1 fL 6.2-12.0 [facility] Monocyte percentageOrdered B y: Lawrence Wilson on 03-07-2025 Monocytes/100 WBC (Bld) 12.0 % High 0-10 [facility] Neutrophil percentageOrdered By: Lawrence Wilson on 03-07-2025 Neutrophils/100 WBC (Bld) 59.5 % 47-70 [facility] Nucleated red blood cell per centageOrdered By: Lawrence Wilson on 03-07-2025 Nucleated RBC/100 WBC (Bld) [Ratio] 0 % 0-5 [facility] Platelet countOrdered By: Leah Wilson on 03-07-2025 Platelets (Bld) [#/Vol] 225 10*3/uL 150-450 [facility] Potassium (Unsp spec) [Mass/ Vol]Ordered By: Lawrence Wilson on 03-07-2025 Potassium [Moles/Vol] 4.3 mmol/L 3.3-5.[address] [facility] Potassium measurement (mass/ volume)Ordered By: Lawrence Wilson on 03-07-2025 Potassium (Unsp spec) [Mass/Vol] 4.3 mmol/L 3.3-5.1 [facility] RBC Auto (Bld) [#/Vol]Ordere d By: Lawrence Wilson on 03-07-2025 RBC (Bld) [#/Vol] 3.97 10*6/uL Low 4.6-6.2 [facility] Screening total cholesterol/ high density lipoprotein (HDL) cholesterol ratioOrdered By: Lawrence Wilson on 03-07-2025 Cholesterol.total/Choles terol in HDL [Mass ratio] 3.32 {ratio} [facility] Serum creatinine measurement (mass/volume)Ordered By: Lawrence Wilson on 03-07-2025 Creatinine [Mass/Vol] 1.15 mg/dL 0.70-1.[address] [facility] Serum globulin measurementOr dered By: Lawrence Wilson on 03-07-2025 Globulin (S) [Mass/Vol] 3.0 g/dL 2.2-4.2 [facility] Serum glucose measurement (m ass/volume)Ordered By: Lawrence Wilson on 03-07-2025 Glucose [Mass/Vol] 113 mg/dL High 70-99 [facility] Serum or plasma alanine simmons otransferase (ALT) measurementOrdered By: Lawrence Wilson on 03-07-2025 ALT [Catalytic activity/Vol] 22 U/L <47 [facility] Serum or plasma albumin ash urement (mass/volume)Ordered By: Lawrence Wilson on 03-07-2025 Albumin [Mass/Vol] 4.2 g/dL 3.4-4.8 [facility] Serum or plasma albumin/glob ulin mass ratioOrdered By: Lawrence Wilson on 03-07-2025 Albumin/Globulin [Mass ratio] 1.4 {ratio} 0.9-2.4 [facility] Serum or plasma alkaline alexandra sphatase measurementOrdered By: Lawrence Wilson on 03-07-2025 ALP [Catalytic activity/Vol] 80 U/L 40-129 [facility] Serum or plasma calcium ash urement (mass/volume)Ordered By: Lawrence Wilson on 03-07-2025 Calcium [Mass/Vol] 8.8 mg/dL 7.6-11.0 [facility] Serum or plasma cholesterol in HDL measurement (mass/volume)Ordered By: Lawrence Wilson on 03-07-2025 Cholesterol in HDL [Mass/Vol] 48 mg/dL >40 [facility] Comment on above: National Cholesterol Education Program (NCEP) guidelines:<40 mg/dL: Low HDL-cholesterol (major risk factor for CHD)>= 60 mg/dL: High HDL-cholesterol (negative risk factor for CHD)HDL-cholesterol is affected by a number of factors, e.g. smoking, exercise, hormones, sex and age. Serum or plasma cholesterol measurement (mass/volume)Ordered By: Lawrence Wilson on 03-07-2025 Cholesterol [Mass/Vol] 160 mg/dL <201 [facility] Comment on above: Cholesterol level, D esirable <200 mg/dLBorderline high cholesterol 200-239 mg/dLHigh cholesterol >=240 mg/dLRecommendations of the NCEP Adult Treatment Panel for the following risk-cutoff thresholds for the [place] population. Serum or plasma urea nitroge n measurement (mass/volume)Ordered By: Lawrence Wilson on 03-07-2025 Urea nitrogen [Mass/Vol] 29 mg/dL High 4-19 [facility] Sodium levelOrdered By: Lawrence Wilson on 03-07-2025 Sodium [Moles/Vol] 138 mmol/L 133-145 [facility] Total proteinOrdered By: Gerhard Wilson on 03-07-2025 Protein [Mass/Vol] 7.2 g/dL 5.9-8.4 [facility] Triglycerides measurementOrd ered By: Lawrence Wilson on 03-07-2025 Triglyceride [Mass/Vol] 163 mg/dL <199 [facility] Comment on above: The drugs N-Acetylcy steine and Metamizole may falsely depress this assay. Normal range: <150 mg/dLBorderline High: 150-199 mg/dLHigh: 200-499 mg/dLVery High: >500 mg/dL White blood cell (WBC) count Ordered By: Lawrence Wilson on 03-07-2025 WBC (Bld) [#/Vol] 5.8 10*3/uL 4.4-11.0 [facility] Cardiology Visit Reporton Cardiology Visit Report [facility] [address] [place], [place] [address] OFFICE VISIT Date of Service: 03/01/25 MR#: [id number] Acct: [id number] Name: ABRAHAN CALVERT Rep #: [id number] : 1950 Provider: HARVEY Garcia rts Age/Sex: 74/M Location: [facility] Status: Signed HPI HPI History of Present Illness Details: This is a 74-year-old male who presents today for cardiovascular follow-up visit. He has a history of underlying CAD status post LAD PCI (08/11/21), hyperlipidemia, carotid artery disease, and dizziness. He underwent a recent cardiac catheterization on 02/01/2025, and underwent a successful SHERIN to the mid LAD. From a cardiac standpoint, the patient is doing well. He denies any palpitations, chest pain, pressure or heaviness. He denies SOB, Orthopnea, and PND. He does not have bleeding issues; no blood in urine, stool, or nosebleeds. He denies any decrease in energy level, myalgias, or claudication. He does not have edema, or sudden weight gain. He denies lightheadedness, dizziness, syncopal or near syncopal episodes, and headaches. 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: No Is patient in pain?: No Allergies atorvastatin Adverse Reaction (Severe, Verified 03/01/25 09:37) myalgias pitavastatin (From Livalo) Adverse Reaction (Severe, Verified 03/01/25 09:37) Myalgias rosuvastatin Adverse Reaction (Severe, Verified 03/01/25 09:37) Myalgias Medications ???Medication ???Instructions ???Recorded ???Confirmed ???Type aspirin 81 mg tablet,delayed 81 mg PO DAILY 04/28/21 03/01/25 H istory release (Adult Aspirin Regimen) ezetimibe 10 mg tablet (Zetia) 10 mg PO DAILY 04/28/21 03/01/25 H istory meloxicam 15 mg tablet (Mobic) 15 mg PO DAILY 04/28/21 03/01/25 H istory multivitamin with minerals-folic 1 tab PO DAILY 04/28/21 03/01/25 H istory acid 0.4 mg tablet (Adult One Daily Multivitamin) tamsulosin 0.4 mg capsule (Flomax) 0.4 mg PO QHS 04/28/21 03/01/25 History tadalafil 5 mg tablet (Cialis) 5 mg PO DAILY PRN sexual activity 03/04/22 03/01/25 History amlodipine 2.5 mg tablet 2.5 mg PO QDAY #30 tabs 02/05/25 0 02/19/25 Rx losartan 50 mg tablet 50 mg PO QDAY 02/05/25 03/01/25 Hi story clopidogrel 75 mg tablet 75 mg PO DAILY #90 tabs 02/20/25 0 03/01/25 Rx Ejection fraction %: 60 Have you fallen in the past year?: No Nurse's Note: unable to confirm medications [facility] Medical History Essential hypertension Abnormal stress test Presence of stent in coronary artery ( 08/11/21) Atherosclerotic heart disease of [place] coronary artery without angina pectoris Bilateral carotid artery disease History of prostate cancer Sinus bradycardia Mixed hyperlipidemia Surgical History Presence of coronary angioplasty implant and graft ( 08/11/21) History of tonsillectomy History of appendectomy History of left inguinal hernia repair Social History Smoking Status: Never smoker alcohol intake: current details: occasional substance use type: does not use caffeine: Yes Type: tea ROS Const Const: Negative for fatigue, weakness, headache(s) or frequent falls Eyes Eyes: Negative for blurry vision ENT ENT: Negative for headache(s), dizziness or Nosebleed/epistaxis Cardio Chest Pain: No Palpitations: No Edema: None Muscle aches with walking: None Resp Respiratory: Negative for SOB with activity, SOB at rest or SOB orthopnea SOB lying down GI GI: Negative nausea, vomiting, heartburn, bright, red blood in stools or black,tarry stools : Negative for hematuria Neuro Neuro: Negative for dizziness, lightheadedness, near syncope, syncope, frequent falls, headache(s), weakness or blurry vision Endo Endo: Negative for fatigue Cardiology Exam Const Appearance: cooperative, healthy appearing, comfortable, no acute distress and well developed Orientation: alert, awake and oriented x3 Head Head: normal to inspection Ears: hearing grossly normal bilaterally Nose: external nose normal Face and Sinus: face symmetric Mouth: oral mucosae normal Eyes General: appearance normal, both eyes and all related structures Eyelids: eyelids normal Conjunctivae: conjunctivae normal Pupils: PERRL EOM: EOM intact bilaterally Neck Neck: normal visual inspection and trachea midline; Negative no JVD Carotids: Negative bruit Chest Chest inspection: (more content not included)... Normal [facility] ACT Activated Clotting Timeo n 02-27-2025 ACTk CLOT TIME 233 sec High 74-137 [facility] Comment on above: Performed By: #### L 9100.0100 #### [facility] [address] [place], [address] CR - History AND Physicalon 02-27-2025 CR - History & Physical [facility] [address] [place] [address] CR - History Physical MR#: [id number] Acct: [id number] Name: ABRAHAN CALVERT Rep #: [id number] : 1950 74 From: George Bravo BS, RVT PCP: Dr. Lawrence Wilson MD DOS: 02/27/25 CR - History Physical General Arrival date:: 02/27/25 Arrival time:: 08:02 Date of Referral:: 02/22/25 Date of CR Evaluation:: 02/27/25 Referring Physician: Dr. Watts Primary Diagnosis: PCI w/stenting History of Present Cardiac Event Onset Date PTCA or coronary stenting:: Yes Vessel: LAD onset 02/19/25 Medications Ambulatory Orders ???Medication ???Instructions ???Recorded aspirin 81 mg tablet,delayed 81 mg PO DAILY 04/28/21 release (Adult Aspirin Regimen) ezetimibe 10 mg tablet (Zetia) 10 mg PO DAILY 04/28/21 meloxicam 15 mg tablet (Mobic) 15 mg PO DAILY 04/28/21 multivitamin with minerals-folic 1 tab PO DAILY 04/28/21 acid 0.4 mg tablet (Adult One Daily Multivitamin) tamsulosin 0.4 mg capsule (Flomax) 0.4 mg PO QHS 04/28/21 tadalafil 5 mg tablet (Cialis) 5 mg PO DAILY PRN sexual activity 03/04/22 amlodipine 2.5 mg tablet 2.5 mg PO QDAY #30 tabs 02/05/25 losartan 50 mg tablet 50 mg PO QDAY 02/05/25 clopidogrel 75 mg tablet 75 mg PO DAILY #90 tabs 02/20/25 Allergies Allergies atorvastatin Adverse Reaction (Severe, Verified 02/05/25 10:53) myalgias pitavastatin (From Livalo) Adverse Reaction (Severe, Verified 02/05/25 10:53) Myalgias rosuvastatin Adverse Reaction (Severe, Verified 02/05/25 10:53) Myalgias Sleep Disorder Evaluation Hx of Sleep Apnea: No Do you snore loudly (louder than talking or can be heard through closed doors)?: No Do you often feel tired/ fatigued/ sleepy during daytime?: No Has anyone observed you stop breathing during sleep?: No History of Hypertension (for STOP score): Yes STOP Results: Negative Advanced Directives Advanced Directives Do you 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 Maged Watts MD) Essential hypertension I10 Abnormal stress test R94.39 Presence of stent in coronary artery ( 08/11/21) Z95.5 Successful percutaneous coronary intervention, of mid LAD 70% eccentric stenosis with BRETT-3 flow pre-procedure; Post procedure following predilatation using 2.5 x 15 mm emerge balloon and placement of drug-eluting stent 3.5 x 22 mm drug-eluting stent/Orsiro per Dr. Taylor 08/11/21 Atherosclerotic heart disease of [place] coronary artery without angina pectoris I25.10 Bilateral carotid artery disease I77.9 History of prostate cancer Z85.46 Sinus bradycardia R00.1 Mixed hyperlipidemia E78.2 Past Surgical History Past Surgical History Presence of coronary angioplasty implant and graft ( 08/11/21) Z95.5 Successful percutaneous coronary intervention, of mid LAD 70% eccentric stenosis with BRETT-3 flow pre-procedure; Post procedure following predilatation using 2.5 x 15 mm emerge balloon and placement of drug-eluting stent 3.5 x 22 mm drug-eluting stent/Orsiro per Dr. Taylor 08/11/21 History of tonsillectomy Z90.89 History of appendectomy Z90.49 History of left inguinal hernia repair Z98.890, Z87.19 Social History Smoking History Smoking Status: Never smoker Alcohol Use Alcohol Usage: Yes (2-3 beers a week) Substance Abuse Hx Substance Use: No Occupation Occupation (List type of work in comments):: Retired Social Environment Status Marital Status: Current Living Arrangements Living Environment:: Spouse Children How many children do you have?: 2 Do any of your children live nearby?: Yes Safety Do you feel safe in your surroundings?: Yes Assistance Do you need any assistance at home?: no Review of Systems Review of Systems Hints Review of Present Symptoms: Reports PVD, Fatigue, Appetite - Normal, Appetite - Special Diet and Sleep - Normal; Denies Shortness of Breath at Rest, Shortness of Breath with Exertion, Operative Discomfort, Angina, Wound Healing, Dizziness/Lightheade dness, Heart Arrhythmia/Irregular ities or Sexual Changes Pain Is Patient Pain Free?: No Pain Location: other (arthritis pain everywhere) Pain Level: 5/10 Risk Factor Assessment Chief Complaint Chief Complaint: PCI with stenting Vital Signs Pulse Ox: 97 Blood Pressure: 120/62 Pulse Pulse Rate: 50 Hypertension How long have you been treated?: 5 months Blood Pressure Sitting - Right Arm: 120/62 Obesity Height: 6 (more content not included)... Normal [facility] 12 Lead EKGon 02-20-2025 12 Lead EKG [facility] Cardiovascular Services [address] [place] [address] 12 Lead EKG 02/20/25 0530 MR#: [id number] Acct: [id number] Name: ABRAHAN CALVERT Rep #: [id number] : 1950 74 From: Michael Freeman MD Attending Dr: Dr. Michael Freeman MD Status: DIS I NO Ordering Dr: Maged Watts MD Date: 02/20/25 Location: U Sex: M C Admitted: 02/19/25 Test Reason : AM EKG Blood Pressure : */* mmHG Vent. Rate : 51 BPM Atrial Rate : 51 BPM P-R Int : 192 ms QRS Dur : 76 ms QT Int : 452 ms P-R-T Axes : 70 47 44 degrees QTcB Int : 416 ms Sinus bradycardia Otherwise normal ECG When compared with ECG of 12-Aug-2021 04:43, No significant change was found Confirmed by LYDIA WATKINS, MICHAEL ([id number]), slot editor MEGAN CORCORAN ([id number]) on 02/21/2025 8:44:37 AM Referred By: Michael Freeman Confirmed By: MICHAEL FREEMAN MD 02/21/25 0844 Date Michael Freeman MD CC: Dr. Maged Watts MD; Dr. Michael Freeman MD; Dr. Lawrence Wilson MD Signed Normal [facility] Anion gap in Serum or Plasma Ordered By: Maged Watts on 02-20-2025 Anion gap [Moles/Vol] 9 mmol/L 03-[address] [facility] BUN/creatinine ratioOrdered By: Maged Watts on 02-20-2025 Urea nitrogen/Creatinine [Mass ratio] 21.6 mg/mg High 10-20 [facility] Bilirubin, totalOrdered By: Maged Watts on 02-20-2025 Bilirubin [Mass/Vol] 0.62 mg/dL 0.00-1.30 [facility] CBC-Complete Blood Cnt No Di ffon 02-20-2025 Erythrocyte distribution width (RBC) [Ratio] 13.8 % Normal 11.6-14.6 [facility] Comment on above: Performed By: #### L 500.4100, L500.4050, L100.0100 #### [facility] Laboratory [address] [place], [address] Hematocrit (Bld) [Volume fraction] 34.9 % Low 40-54 [facility] Comment on above: Performed By: #### L 500.4100, L500.4050, L100.0100 #### [facility] [address] [place], [address] Hemoglobin (Bld) [Mass/Vol] 11.8 g/dL Low 13.0-16.5 [facility] Comment on above: Performed By: #### L 500.4100, L500.4050, L100.0100 #### [facility] [address] [place], [address] MCH (RBC) [Entitic mass] 30.3 pg Normal 27.0-32.0 [facility] Comment on above: Performed By: #### L 500.4100, L500.4050, L100.0100 #### [facility] [address] [place], [address] MCHC (RBC) [Mass/Vol] 33.8 g/dL Normal 32-[address] [facility] Comment on above: Performed By: #### L 500.4100, L500.4050, L100.0100 #### [facility] [address] [place], [address] MCV (RBC) [Entitic vol] 89.7 fL Normal 80-94 [facility] Comment on above: Performed By: #### L 500.4100, L500.4050, L100.0100 #### [facility] [address] [place], [address] Platelet mean volume (Bld) [Entitic vol] 10.4 fL Normal 6.2-12.0 [facility] Comment on above: Performed By: #### L 500.4100, L500.4050, L100.0100 #### [facility] [address] [place], [address] Platelets (Bld) [#/Vol] 215 10*3/uL Normal 150-450 [facility] Comment on above: Performed By: #### L 500.4100, L500.4050, L100.0100 #### [facility] [address] [place], [address] RBC (Bld) [#/Vol] 3.89 10*6/uL Low 4.6-6.2 [facility] Comment on above: Performed By: #### L 500.4100, L500.4050, L100.0100 #### [facility] [address] [place], [address] RDW SD 45.1 fl High 35.1-43.9 [facility] Comment on above: Performed By: #### L 500.4100, L500.4050, L100.0100 #### [facility] [address] [place], [address] WBC (Bld) [#/Vol] 5.4 10*3/uL Normal 4.4-11.0 [facility] Comment on above: Performed By: #### L 500.4100, L500.4050, L100.0100 #### [facility] [address] [place], [address] Carbon dioxide, total [Moles /volume] in Central venous bloodOrdered By: Maged Watts on 02-20-2025 CO2 [Moles/Vol] 21.4 mmol/L 21.0-32.0 [facility] Cardiac rehabilitation repor tOrdered By: Oren Sultana on 02-20-2025 Study report [facility] Cardiac Rehab [address] [place] [address] CR: Phase I Assessment MR#: [id number] Acct: [id number] Name: ABRAHAN CALVERT Rep #:[id number] : 1950 74 From: Oren Sultana PCP: Dr. Lawrence Wilson MD DOS: 07/08 Patient Communication Patient Information Former Patient:: Phase I PHII Cardiac Rehab Discussed with Patient:: Yes Guide to Cardiac Rehab Given to Patient:: Yes Cardiac Rehab Facility Choice List Given to Patient:: Yes Communication to Cardiac Rehab Choice Program [facility] CR PHII:: Communication Given to CR Tong Carrier:: Maged Watts Refer Phase II Cardiac Rehab:: Yes Sessions:: 36 sessions - 3 days/wk, 12 weeks Cardiac Rehabilitation Info Program Information Cardiac Rehabilitation Program Information: Cardiac Rehab The cardiac rehab team at [facility] consists of highly skilled exercise physiologists, nurses, respiratory therapists and physicians working together with you. Our purpose is to help you have a full recovery and achieve the goals you set for yourself. Over the years many of our patients have returned to activities they assumed they would never do again! We can help restore your confidence and motivation to make lifestyle changes that can have a significant impact on your health and quality of life! We can help answer questions and concerns you may have about exercise, lifestyle, medications, diet, stress and anxiety which are common following a hospitalization. WE monitor ECG and vital signs during exercise and discuss your progress with you and report toyour physician(s). Cardiac Rehab is proven to help reduce readmissions, improve functional capacityand lower recurrence of problems with your heart. Our Cardiac Rehab program is Certified by the [place] [employer]io-Vascular and Pulmonary [employer] (AACVPR) and Accredited by the [employer] through our [facility]. You can contact us at . We invite you to call us with your questions or to get started in our program. If you have other questions or concerns be sure to ask your physician/provider during your follow-up visit. WE look forward to seeing you! 02/19/[address] Outcome assessment reviewed. Exercise plan approved as documented. Treatment plan and goals support patient needs/abilities. Continue with current plan. I certify the patient demonstrates improvement and remains willing and capable of participation. the patient continues to benefit from cardiac rehab services/training. The patient may continue at current intensity, endurance andmodality and progress per protocol. Cosigner Signature: Date _ CC: ~ Signed [facility] Chloride assayOrdered By: Chace Watts on 02-20-2025 Chloride [Moles/Vol] 107 mmol/L 98-108 [facility] Comprehensive Metabolic Prof ilon 02-20-2025 Albumin [Mass/Vol] 3.7 g/dL Normal 3.4-4.8 [facility] Comment on above: Performed By: #### L 500.4100, L500.4050, L100.0100 #### [facility] [address] [place], [place], [address] Albumin/Globulin [Mass ratio] 1.4 {ratio} Normal 0.9-2.4 [facility] Comment on above: Performed By: #### L 500.4100, L500.4050, L100.0100 #### [facility] [address] [place], [address] ALK PHOS 72 U/L Normal 40-129 [facility] Comment on above: Performed By: #### L 500.4100, L500.4050, L100.0100 #### [facility] [address] [place], [address] ALT [Catalytic activity/Vol] 18 U/L Normal <=46 [facility] Comment on above: Performed By: #### L 500.4100, L500.4050, L100.0100 #### [facility] [address] [place], [address] AST [Catalytic activity/Vol] 20 U/L Normal <=37 [facility] Comment on above: Performed By: #### L 500.4100, L500.4050, L100.0100 #### [facility] [address] [place], [address] Bilirubin [Mass/Vol] 0.62 mg/dL Normal 0.00-1.30 [facility] Comment on above: Performed By: #### L 500.4100, L500.4050, L100.0100 #### [facility] [address] [place], [address] BUN/CRE 21.6 RATIO High 10-20 [facility] Comment on above: Performed By: #### L 500.4100, L500.4050, L100.0100 #### [facility] [address] [place], [address] Calcium [Mass/Vol] 8.7 mg/dL Normal 7.6-11.0 [facility] Comment on above: Performed By: #### L 500.4100, L500.4050, L100.0100 #### [facility] [address] [place], [address] Chloride [Moles/Vol] 107 mmol/L Normal 98-108 [facility] Comment on above: Performed By: #### L 500.4100, L500.4050, L100.0100 #### [facility] [address] [place], [address] CO2 [Moles/Vol] 21.4 mmol/L Normal 21.0-32.0 [facility] Comment on above: Performed By: #### L 500.4100, L500.4050, L100.0100 #### [facility] [address] [place], [address] Creatinine [Mass/Vol] 1.07 mg/dL Normal 0.70-1.[address] [facility] Comment on above: Performed By: #### L 500.4100, L500.4050, L100.0100 #### [facility] [address] [place], [address] ECRCL 71.29 ml/min Normal 50-250 [facility] Comment on above: Performed By: #### L 500.4100, L500.4050, L100.0100 #### [facility] [address] [place], [address] GAP 9 Normal 5-15 [facility] Comment on above: Performed By: #### L 500.4100, L500.4050, L100.0100 #### [facility] [address] [place], [address] GFR/1.73 sq M.predicted among non-blacks MDRD (S/P/Bld) [Vol rate/Area] 72 mL/min/{1.73_m2} Normal >60 [facility] Comment on above: Result Comment: mL/m in/1.73m2 CKD-EPI Creatinine Equation (2020) Performed By: #### L 500.4100, L500.4050, L100.0100 #### [facility] [address] [place], [address] Globulin (S) [Mass/Vol] 2.6 g/dL Normal 2.2-4.2 [facility] Comment on above: Performed By: #### L 500.4100, L500.4050, L100.0100 #### [facility] [address] [place], [address] Glucose [Mass/Vol] 89 mg/dL Normal 70-99 [facility] Comment on above: Performed By: #### L 500.4100, L500.4050, L100.0100 #### [facility] [address] [place], [address] Potassium [Moles/Vol] 4.2 mmol/L Normal 3.3-5.[address] [facility] Comment on above: Performed By: #### L 500.4100, L500.4050, L100.0100 #### [facility] [address] [place], [address] Sodium [Moles/Vol] 137 mmol/L Normal 133-145 [facility] Comment on above: Performed By: #### L 500.4100, L500.4050, L100.0100 #### [facility] [address] [place], [address] T PROT 6.3 g/dL Normal 5.9-8.4 [facility] Comment on above: Performed By: #### L 500.4100, L500.4050, L100.0100 #### [facility] [address] [place] [place], [address] Urea nitrogen [Mass/Vol] 23 mg/dL High 4-19 [facility] Comment on above: Performed By: #### L 500.4100, L500.4050, L100.0100 #### [facility] [address] [place], [address] Discharge Instructionon 04-0 Discharge Instruction [facility] Medical Records Department [address] [place] [address] Instructions for Home/Discharge Instructions 02/20/25 0740 MR#: [id number] Acct: [id number] Name: ABRAHAN CALVERT Rep #: [id number] : 1950 74 From: Michael Freeman MD PCP: Dr. Lawrence Wilson MD Status:ADM ANGELA Discharge Instructions Diet Discharge Diet: No restrictions (You may continue your normal diet.) DC O2, CPAP, BIPAP needs Home O2 Discharge instructions: No Dressing / Incision Discharge Activity: Return to Normal Activity Lifting Restrictions: 10 pounds and also avoid any pushing or pulling for 3 days after your test. Additional Activity Instructions:: You must have someone drive you home. Do not drive until instructed by your doctor. You must have someone stay with you all night after your test. Rest in bed or on the couch until the next morning. Limit the number of times you go up and down stairs the day of your test. Apply pressure to the puncture site if you sneeze or cough. Dressing / Incision Call your doctor if your incision/area has: Increased Pain/ Swelling, Increased Redness, Foul Smelling Discharge and Swelling at the incision site Call your doctor if you observe: Fever of 101 or Higher Additional Dressing/Incision Instructions:: Keep the dressing (bandage) on until the next morning. You may then shower, but do not take a tub bath for 5 days after your test. It is normal to have some tenderness and discomfort at the puncture site. Sometimes bruising also occurs. However, if pain, numbness, or coldness occurs below the puncture site (in your leg, toes, arms or fingers) call your doctor at once. You may have a small, marble sized knot at the puncture site. This is normal. Do not rub it. It will go away in 4-6 weeks. Bleeding can occur from the area where the puncture was done. Blood may spurt or drip from the site. If blood spurts, apply pressure right away to stop bleeding and call 911. Although rare, bleeding into the tissue (hematoma) can also occur. If this happens, a large, firm area "goose egg" under the skin will appear. If any of these occur, lie down as flat as you can and have someone apply firm pressure to the cath site with a gauze pad or a clean washcloth for 10-15 minutes. Call 911 or go to the Emergency Department. Follow Up Care When: Pacer clinic on June 03 at 1:30 PM. Test Results: Test results from this visit will be discussed in further detail at your follow-up appointment, if applicable. Discharge Plan Admission Admit Date/Time: 02/19/25 15:36 Attending Provider: Michael Freeman Primary Care Provider: Lawrence Wilson Discharge Orders/Prescriptions Prescriptions: New clopidogrel 75 mg Tablet 75 mg PO DAILY Qty: 90 3RF Continued losartan 50 mg tablet 50 mg PO QDAY amlodipine 2.5 mg tablet 2.5 mg PO QDAY Qty: 30 11RF Adult One Daily Multivitamin 0.4 mg tablet 1 tab PO DAILY meloxicam [Mobic] 15 mg tablet 15 mg PO DAILY aspirin [Adult Aspirin Regimen] 81 mg tablet,delayed release (DR/EC) 81 mg PO DAILY ezetimibe [Zetia] 10 mg tablet 10 mg PO DAILY tamsulosin [Flomax] 0.4 mg capsule 0.4 mg PO QHS tadalafil [Cialis] 5 mg tablet 5 mg PO DAILY PRN (Reason: sexual activity) Referrals / Follow Up: Lawrence Wilson MD [Primary Care Provider] - Disposition Disposition (needs filled in before D/C Order can be placed): Home, Self Care 02/20/25 0741 Michael Freeman MD CC: Dr. Lawrence Wilson MD Signed Normal [facility] Erythrocyte distribution wid th (RBC) [Ratio]Ordered By: Maged Watts on 02-20-2025 Erythrocyte distribution width (RBC) [Entitic vol] 45.1 fL High 35.1-43.9 [facility] Erythrocyte distribution wid th ratioOrdered By: Maged Watts on 02-20-2025 Erythrocyte distribution width (RBC) [Ratio] 13.8 % 11.6-14.6 [facility] Erythrocyte distribution wid th standard deviationOrdered By: Maged Watts on 02-20-2025 Erythrocyte distribution width (RBC) [Ratio] 45.1 fl High 35.1-43.9 [facility] Estimation of creatinine laura aranceOrdered By: Maged Watts on 02-20-2025 Estimated Creatinine Clearance Calc 71.29 ml/min 50-250 [facility] GFR/1.73 sq M.predicted jamie g non-blacks MDRD (S/P/Bld) [Vol rate/Area]Ordered By: Maged Watts on 02-20-2025 Estimated GFR (MDRD) Non-Af Amer 72 >60 [facility] Comment on above: mL/min/1.73m2 CKD-EP I Creatinine Equation (2020) Glomerular filtration rate ( GFR) estimation/1.73 sq m using serum, plasma, or whole bOrdered By: Maged Watts on 02-20-2025 GFR/1.73 sq M.predicted among non-blacks MDRD (S/P/Bld) [Vol rate/Area] 72 mL/min/{1.73_m2} >60 [facility] Comment on above: mL/min/1.73m2 CKD-EP I Creatinine Equation (2020) Hematocrit Auto (Bld) [Volum e fraction]Ordered By: Maged Watts on 02-20-2025 Hematocrit (Bld) [Volume fraction] 34.9 % Low 40-54 [facility] Hemoglobin measurementOrdere d By: Maged Watts on 02-20-2025 Hemoglobin (Bld) [Mass/Vol] 11.8 g/dL Low 13.0-16.5 [facility] Laboratory - Chemistry and C hemistry - challengeOrdered By: Maged Watts on 02-20-2025 AST [Catalytic activity/Vol] 20 U/L <38 [facility] MCV (mean corpuscular volume ) determinationOrdered By: Maged Watts 02-20-2025 MCV (RBC) [Entitic vol] 89.7 fL 80-94 [facility] Mean corpuscular hemoglobin (MCH) determinationOrdered By: Maged Watts 02-20-2025 MCH (RBC) [Entitic mass] 30.3 pg 27.0-32.0 [facility] Mean corpuscular hemoglobin concentration (MCHC) determinationOrdered By: Maged Watts on 02-20-2025 MCHC (RBC) [Mass/Vol] 33.8 g/dL 32-[address] [facility] Mean platelet volume determi nationOrdered By: Maged Watts 02-20-2025 Platelet mean volume (Bld) [Entitic vol] 10.4 fL 6.2-12.0 [facility] Platelet countOrdered By: Chace Watts on 02-20-2025 Platelets (Bld) [#/Vol] 215 10*3/uL 150-450 [facility] Potassium (Unsp spec) [Mass/ Vol]Ordered By: Maged Watts on 02-20-2025 Potassium [Moles/Vol] 4.2 mmol/L 3.3-5.[address] [facility] Potassium measurement (mass/ volume)Ordered By: Maged Watts on 02-20-2025 Potassium (Unsp spec) [Mass/Vol] 4.2 mmol/L 3.3-5.1 [facility] RBC Auto (Bld) [#/Vol]Ordere d By: Maged Watts on 02-20-2025 RBC (Bld) [#/Vol] 3.89 10*6/uL Low 4.6-6.2 [facility] Serum creatinine measurement (mass/volume)Ordered By: Maged Watts on 02-20-2025 Creatinine [Mass/Vol] 1.07 mg/dL 0.70-1.[address] [facility] Serum globulin measurementOr dered By: Maged Watts on 02-20-2025 Globulin (S) [Mass/Vol] 2.6 g/dL 2.2-4.2 [facility] Serum glucose measurement (m ass/volume)Ordered By: Maged Watts on 02-20-2025 Glucose [Mass/Vol] 89 mg/dL 70-99 [facility] Serum or plasma alanine simmons otransferase (ALT) measurementOrdered By: Maged Watts on 02-20-2025 ALT [Catalytic activity/Vol] 18 U/L <47 [facility] Serum or plasma albumin ash urement (mass/volume)Ordered By: Maged Watts on 02-20-2025 Albumin [Mass/Vol] 3.7 g/dL 3.4-4.8 [facility] Serum or plasma albumin/glob ulin mass ratioOrdered By: Maged Watts on 02-20-2025 Albumin/Globulin [Mass ratio] 1.4 {ratio} 0.9-2.4 [facility] Serum or plasma alkaline alexandra sphatase measurementOrdered By: Maged Watts on 02-20-2025 ALP [Catalytic activity/Vol] 72 U/L 40-129 [facility] Serum or plasma calcium ash urement (mass/volume)Ordered By: Maged Mac on 02-20-2025 Calcium [Mass/Vol] 8.7 mg/dL 7.6-11.0 [facility] Serum or plasma urea nitroge n measurement (mass/volume)Ordered By: Maged Mac on 02-20-2025 Urea nitrogen [Mass/Vol] 23 mg/dL High 4-19 [facility] Sodium levelOrdered By: Yvon galo Mac on 02-20-2025 Sodium [Moles/Vol] 137 mmol/L 133-145 [facility] Total proteinOrdered By: Bernardo Watts on 02-20-2025 Protein [Mass/Vol] 6.3 g/dL 5.9-8.4 [facility] White blood cell (WBC) count Ordered By: Maged Watst on 02-20-2025 WBC (Bld) [#/Vol] 5.4 10*3/uL 4.4-11.0 [facility] ACT Activated Clotting Timeo n 02-19-2025 ACTk CLOT TIME 245 sec High 74-137 [facility] Comment on above: Performed By: #### L 9100.0100 #### [facility] [address] [place], [address] Activated clotting timeOrder ed By: Michael Freeman on 02-19-2025 Activated Clotting Time 245 sec High 74-137 [facility] Cardiac Cath Diagnosticon Cardiac Cath Diagnostic [facility] Imaging Services [address] [place] [address] Cardiac Cath Diagnostic MR#: [id number] Acct: [id number] Name: ABRAHAN CALVERT Rep #: [id number] : 1950 74 From: Michael Freeman MD PCP: Dr. Lawrence Wilson MD Status:[facility] Patient Name: ABRAHAN CALVERT Study Date: 02/19/2025 Performing: Michael Freeman MD Ht: 75 inches 190.5 cm : 1950 Wt: 203 lbs 92.08 kg Age: 74 Gender: male BSA: 2.21 PROCEDURE(S) PERFORMED DC01-(32101)LHC/COR/ LV CLINICAL PROFILE AND INDICATIONS Indications: Suspected CAD Heart Failure: None Stress/Imaging Date: 02/01/25Stress Test with SPECT MPI: Positive Intermediate Risk CAD Presentations: Stable angina. CONCLUSIONS Severe single-vessel CAD involving the LAD RECOMMENDATIONS Referred for immediate PCI DESCRIPTION OF PROCEDURE The patient arrived to the procedure lab. The risks and benefits of the procedure as well as a full description of our services here and current unavailability of surgical backup were fully explained to the patient and/or their significant other prior to the catheterization. The Timeout was completed, verifying the correct patient and procedure. The patient's procedural site was prepped and draped in the usual fashion. Local anesthetic was given subcutaneously to right radial region with Lidocaine 2%. Using a modified Seldinger technique, arterial access was obtained via the right radial artery, a 6Fr sheath was inserted. Left Coronary Artery selective angiography was performed in multiple views using a 5 Fr. 4.0 [place] catheter. Right Coronary Artery selective angiography was then performed in multiple views using a 5 Fr. 4.0 [place] catheter. Left Ventriculography was performed in RUIZ projection using a 5 Fr. Pig[place] catheter. LV to AO pullback pressures were then recorded. CORONARY ANGIOGRAPHY DOMINANCE: Right Dominant LEFT HEART ASSESSMENT Left Ventricular Ejection Fraction: by LV Gram 60 % Normal LV wall motion Normal Left Ventricular systolic function LEFT MAIN: Angiographically normal LEFT ANTERIOR DESCENDING ARTERY: Medium size vessel with a previously placed proximal stent which is patent and immediately after the stent and 90% stenosis noted prior to the takeoff of a diagonal branch. CIRCUMFLEX ARTERY: Mild luminal irregularities less than 30% RIGHT CORONARY ARTERY: Mild luminal irregularities less than 30% COMPLICATIONS PROCEDURE MEDICATIONS Versed 1 mg IV Fentanyl 50 mcg IV Versed 1 mg IV Versed 1 mg IV Oxygen: 2 L/min via nasal cannula Brilinta 180 mg PO @ 02/19/2025 08:15:45 Heparin given IA 02/19/2025 08:00:47 Verapamil 2.5mg, Ntg 100mcgs, 3000 units of Heparin given IA 02/19/2025 08:00:47 SUMMARY OF HEMODYNAMIC DATA Time AIR REST ECG 07:23:40 AO 125/63 (89) SA 08:06:51 LV 124/9, 21 08:14:13 LV 131/10, 19 08:14:21 LV 142/7, 16 08:14:52 LV 122/12, 23 08:15:00 LVp 119/10, 22 08:15:05 AOp 123/55 (83) 08:15:12 Signed By Michael Freeman MD On 02/19/2025 08:28:28 Michael Freeman MD 02/19/25827 Date Michael Aguilarigner Signature: Date (if indicated) CC: Dr. Michael Freeman MD; Dr. Lawrence Wilson MD Date Dictated: 02/19/25752 Date Transcribed: 02/19/25827 Dynamometer Tester: CO Signed Normal [facility] Cardiac Cath Interventionon 02-19-2025 Cardiac Cath Intervention [facility] Imaging Services [address] [place] [address] Cardiac Cath Intervention MR#: [id number] Acct: [id number] Name: ABRAHAN CALVERT Rep #: [id number] : 1950 74 From: Michael Freeman MD PCP: Dr. Lawrence Wilson MD Status:[facility] Patient Name: ABRAHAN CALVERT Study Date: 02/19/2025 Performing: Maged Watts MD Ht: 75 inches 190.5 cm : 1950 Wt: 203 lbs 92.08 kg Age: 74 Gender: male BSA: 2.21 PROCEDURE(S) PERFORMED IC12-(45542/C9600)DE S W/WO PTCA, SINGLE CORONARY ARTERY CLINICAL PROFILE AND CO-MORBIDITIES Indications: Suspected CAD Heart Failure: None Stress/Imaging Date: 02/01/25 Stress Test with SPECT MPI: Positive Intermediate Risk CAD Presentations: Stable angina. CONCLUSIONS Successful SHERIN Mid LAD using [place] 3.0x15 mm, optimized proximally using 3.5 mm balloon RECOMMENDATIONS ASA Indefinitley P2Y12 inhibitors for atleast 6 months DESCRIPTION OF PROCEDURE The patient arrived to the procedure lab. The risks and benefits of the procedure as well as a full description of our services here and current unavailability of surgical backup were fully explained to the patient and/or their significant other prior to the catheterization. The Timeout was completed, verifying the correct patient and procedure. The patient's procedural site was prepped and draped in the usual fashion. Local anesthetic was given subcutaneously to right radial region with Lidocaine 2% Using a modified Seldinger technique,arterial access was obtained via the right radial artery, a 6Fr sheath was inserted. Left Coronary Artery selective angiography was performed in multiple views using a 5 Fr. 4.0 [place] catheter. Right Coronary Artery selective angiography was then performed in multiple views using a 5 Fr. 4.0 [place] catheter. Left Ventriculography was performed in RUIZ projection using a 5 Fr. Pigtail catheter. LV to AO pullback pressures were then recorded.The images were reviewed and options discussed. A decision was then made to proceed with an Intervention, IVUS or other adjunct procedure. XB 3.0 Guide catheter was inserted and engaged into the LCA. Runthrough Guide wire was advanced to the LAD. [place] Rosas 3.0x15 Drug Eluting stent was inserted. [place] 3.00x12 Balloon catheter was inserted. Angiogram performed post balloon dilatation. Angiogram performed post balloon dilatation. The arterial sheath was pulled and a TR Band was applied for hemostasis INTERVENTION INFORMATION LESION SITE: LAD (Mid) Lesion Complexity: Non-High/Non-C, lesion length: 10 mm, In-stent restenosis: No Pre Stenosis: 90 % Pre intervention BRETT flow: 3 PROCEDURE: Drug Eluting Stent with post dilatation Post Stenosis: 0 % Post intervention BRETT flow: 3 Lesion Devices: Terumo .014 180cm Runthrough Extra Floppy straight Cordis 6 Fr XB3.0 100cm Guide Catheter Medtronic 3.0 x 15 ROSAS FRONTIER SHERIN Mark Sci [place] EMERGE MR 3.00x12 BALLOON Mark Sci [place] EMER[place] MR 3.50x12 BALLOON COMPLICATIONS No Complications PROCEDURE MEDICATIONS Versed 1 mg IV Fentanyl 50 mcg IV Versed 1 mg IV Versed 1 mg IV Oxygen: 2 L/min via nasal cannula Brilinta 180 mg PO @ 02/19/2025 08:15:45 Heparin given IA 02/19/2025 08:00:47 Heparin 6000 unit(s) IV 02/19/2025 08:36:25 Heparin 2000 unit(s) IV 02/19/2025 08:47:20 Heparin 2000 unit(s) IV 02/19/2025 09:11:30 Nitro 200 mcg IC 02/19/2025 08:53:36 Verapamil 2.5mg, Ntg 100mcgs, 3000 units of Heparin given IA 02/19/2025 08:00:47 SUMMARY OF HEMODYNAMIC DATA Time AIR REST ECG 07:23:40 AO 125/63 (89) SA 08:06:51 LV 124/9, 21 08:14:13 LV 131/10, 19 08:14:21 LV 142/7, 16 08:14:52 LV 122/12, 23 08:15:00 LVp 119/10, 22 08:15:05 AOp 123/55 (83) 08:15:12 AO 157/75 (105) 08:44:46 AO 120/69 (87) 09:02:46 Signed By Maged Watts MD On 02/19/2025 09:17:51 Maged Watts MD 02/19/25 0918 Date Michael Manzano Signature: Date (if indicated) CC: Dr. Michael Freeman MD; Dr. Lawrence Wilson MD Date Dictated: 02/19/25 0753 Date Transcribed: 02/19/25 0917 Dynamometer Tester: CO Signed Normal [facility] Cardiac catheterization repo rtOrdered By: Michael Freeman on 02-19-2025 Cardiac catheterization study [facility] Imaging Services [address] [address] Cardiac Cath Intervention MR#: [id number] Acct: [id number] Name: ABRAHAN CALVERT Rep #:[id number] : 1950 74 From: Michael Freeman MD PCP: Dr. Lawrence Wilson MD Status:[facility] Patient Name: ABRAHAN CALVERT Study Date: 02/19/2025 Performing: Maged Watts MD Ht: 75 inches 190.5 cm : 1950 Wt: 203 lbs 92.08 kg Age: 74 Gender: male BSA: 2.21 PROCEDURE(S) PERFORMED IC12-(58811/C9600)DE S W/WO PTCA, SINGLE CORONARY ARTERY CLINICAL PROFILE AND CO-MORBIDITIES Indications: Suspected CAD Heart Failure: None Stress/Imaging Date: 02/01/25 Stress Test with SPECT MPI: Positive Intermediate Risk CAD Presentations: Stable angina. CONCLUSIONS Successful SHERIN Mid LAD using [place] 3.0x15 mm, optimized proximally using 3.5 mm balloon RECOMMENDATIONS ASA Indefinitley P2Y12 inhibitors for atleast 6 months DESCRIPTION OF PROCEDURE The patient arrived to the procedure lab. The risks and benefits of the procedure as well as a full description of our services here and current unavailability of surgical backup were fully explained to the patient and/or their significant other prior to the catheterization. The Timeout was completed, verifying the correct patient and procedure. The patient's procedural site was prepped and draped in the usual fashion. Local anesthetic was given subcutaneously to right radial region with Lidocaine 2% Using a modified Seldinger technique,arterial access was obtained via the right radial artery, a 6Fr sheath was inserted. Left Coronary Artery selective angiography was performed in multiple views using a 5 Fr. 4.0 [place] catheter. Right Coronary Artery selective angiography was then performed in multiple views using a 5 Fr. 4.0 [place] catheter. Left Ventriculography was performed in RUIZ projection using a 5 Fr. Pigtail catheter. LV to AO pullback pressures were then recorded.The images were reviewed and options discussed. A decision was then made to proceed with an Intervention, IVUS or other adjunct procedure. XB 3.0 Guide catheter was inserted and engaged into the LCA. Runthrough Guide wire was advanced to the LAD. [place] Rosas 3.0x15 Drug Eluting stent was inserted. [place] 3.00x12 Balloon catheter was inserted. Angiogram performed post balloon dilatation. Angiogram performed post balloon dilatation. The arterial sheath was pulled and a TR Band was applied for hemostasis INTERVENTION INFORMATION LESION SITE: LAD (Mid) Lesion Complexity: Non-High/Non-C, lesion length: 10 mm, In-stent restenosis: No Pre Stenosis: 90 % Pre intervention BRETT flow: 3 PROCEDURE: Drug Eluting Stent with post dilatation Post Stenosis: 0 % Post intervention BRETT flow: 3 Lesion Devices: Terumo .014 180cm Runthrough Extra Floppy straight Cordis 6 Fr XB3.0 100cm Guide Catheter Medtronic 3.0 x 15 ROSAS FRONTIER SHERIN [employer] Sci [place] MR 3.00x12 BALLOON Mark Sci [place] MR 3.50x12 BALLOON COMPLICATIONS No Complications PROCEDURE MEDICATIONS Versed 1 mg IV Fentanyl 50 mcg IV Versed 1 mg IV Versed 1 mg IV Oxygen: 2 L/min via nasal cannula Brilinta 180 mg PO @ 02/19/2025 08:15:45 Heparin given IA 02/19/2025 08:00:47 Heparin 6000 unit(s) IV 02/19/2025 08:36:25 Heparin 2000 unit(s) IV 02/19/2025 08:47:20 Heparin 2000 unit(s) IV 02/19/2025 09:11:30 Nitro 200 mcg IC 02/19/2025 08:53:36 Verapamil 2.5mg, Ntg 100mcgs, 3000 units of Heparin given IA 02/19/2025 08:00:47 SUMMARY OF HEMODYNAMIC DATA Time AIR REST ECG 07:23:40 AO 125/63 (89) SA 08:06:51 LV 124/9, 21 08:14:13 LV 131/10, 19 08:14:21 LV 142/7, 16 08:14:52 LV 122/12, 23 08:15:00 LVp 119/10, 22 08:15:05 AOp 123/55 (83) 08:15:12 AO 157/75 (105) 08:44:46 AO 120/69 (87) 09:02:46 Signed By Maged Watts MD On 02/19/2025 09:17:51 Maged Watts MD 02/19/25 0918 Date _ Michael Freeman MD Cosigner Signature: Date _ (if indicated) CC: Dr. Michael Freeman MD; Dr. Lawrence Wilson MD ~ Date Dictated: 02/19/25 075 Date Transcribed: 02/19/25 09 Dynamometer Tester: CO Signed [facility] Work Phone: Cardiac catheterization study [facility] Imaging Services [address] [place] [address] Cardiac Cath Diagnostic MR#: [id number] Acct: [id number] Name: ABRAHAN CALVERT Rep #:[id number] : 1950 74 From: Michael Freeman MD PCP: Dr. Lawrence Wilson MD Status:[facility] Patient Name: ABRAHAN CALVERT Study Date: 02/19/2025 Performing: Michael Freeman MD Ht: 75 inches 190.5 cm : 1950 Wt: 203 lbs 92.08 kg Age: 74 Gender: male BSA: 2.21 PROCEDURE(S) PERFORMED DC01-(69277)LHC/COR/ LV CLINICAL PROFILE AND INDICATIONS Indications: Suspected CAD Heart Failure: None Stress/Imaging Date: 02/01/25Stress Test with SPECT MPI: Positive Intermediate Risk CAD Presentations: Stable angina. CONCLUSIONS Severe single-vessel CAD involving the LAD RECOMMENDATIONS Referred for immediate PCI DESCRIPTION OF PROCEDURE The patient arrived to the procedure lab. The risks and benefits of the procedure as well as a full description of our services here and current unavailability of surgical backup were fully explained to the patient and/or their significant other prior to the catheterization. The Timeout was completed, verifying the correct patient and procedure. The patient's procedural site was prepped and draped in the usual fashion. Local anesthetic was given subcutaneously to right radial region with Lidocaine 2%. Using a modified Seldinger technique, arterial access was obtained via the right radial artery, a 6Fr sheath was inserted. Left Coronary Artery selective angiography was performed in multiple views using a 5 Fr. 4.0 [place] catheter. Right Coronary Artery selective angiography was then performed in multiple views using a 5 Fr. 4.0 [place] catheter. Left Ventriculography was performed in RUIZ projection using a 5 Fr. Pigtail catheter. LV to AO pullback pressures were then recorded. CORONARY ANGIOGRAPHY DOMINANCE: Right Dominant LEFT HEART ASSESSMENT Left Ventricular Ejection Fraction: by LV Gram 60 % Normal LV wall motion Normal Left Ventricular systolic function LEFT MAIN: Angiographically normal LEFT ANTERIOR DESCENDING ARTERY: Medium size vessel with a previously placed proximal stent which is patent and immediately after the stent and 90% stenosis noted prior to the takeoff of a diagonal branch. CIRCUMFLEX ARTERY: Mild luminal irregularities less than 30% RIGHT CORONARY ARTERY: Mild luminal irregularities less than 30% COMPLICATIONS PROCEDURE MEDICATIONS Versed 1 mg IV Fentanyl 50 mcg IV Versed 1 mg IV Versed 1 mg IV Oxygen: 2 L/min via nasal cannula Brilinta 180 mg PO @ 02/19/2025 08:15:45 Heparin given IA 02/19/2025 08:00:47 Verapamil 2.5mg, Ntg 100mcgs, 3000 units of Heparin given IA 02/19/2025 08:00:47 SUMMARY OF HEMODYNAMIC DATA Time AIR REST ECG 07:23:40 AO 125/63 (89) SA 08:06:51 LV 124/9, 21 08:14:13 LV 131/10, 19 08:14:21 LV 142/7, 16 08:14:52 LV 122/12, 23 08:15:00 LVp 119/10, 22 08:15:05 AOp 123/55 (83) 08:15:12 Signed By Michael Freeman MD On 02/19/2025 08:28:28 Michael Freeman MD 02/19/25827 Date _ Michael Freeman MD Cosigner Signature: Date _ (if indicated) CC: Dr. Michael Freeman MD; Dr. Lawrence Wilson MD ~ Date Dictated: 02/19/25752 Date Transcribed: 02/19/25827 Dynamometer Tester: CO Signed [facility] Work Phone: Absolute lymphocyte countOrd ered By: Mai Rock on 02-06-2025 Lymphocytes Auto (Unsp spec) [#/Vol] 1.05 10*3/uL 0.83-4.51 [facility] Absolute neutrophil countOrd ered By: Mai Rock on 02-06-2025 Neutrophils (Bld) [#/Vol] 3.1 10*3/uL 2.0-7.7 [facility] Activated partial thrombopla stin time (aPTT) in platelet poor plasma by coagulation aOrdered By: Mai Rock on 02-06-2025 aPTT Coag (PPP) [Time] 26.7 s 24.1-36.2 [facility] Anion gap in Serum or Plasma Ordered By: Mai Rock on 02-06-2025 Anion gap [Moles/Vol] 11 mmol/L 5-[address] [facility] Automated lymphocyte count a s percentage of total leukocytesOrdered By: Mai Rock on 02-06-2025 Lymphocytes/100 WBC Auto (Unsp spec) 21.4 % 19-41 [facility] BUN/creatinine ratioOrdered By: Mai Rock on 02-06-2025 Urea nitrogen/Creatinine [Mass ratio] 22.0 mg/mg High - [facility] Basic Metabolic Profile (BMP )on 02-06-2025 BUN/CRE 22.0 RATIO High - [facility] Comment on above: Performed By: #### L 100.0100, L300.3900, L500.2500, L300.4310 ####[facility] [address] [place], [address] Calcium [Mass/Vol] 9.5 mg/dL Normal 7.6-11.0 [facility] Comment on above: Performed By: #### L 100.0100, L300.3900, L500.2500, L300.4310 ####[facility] [address] [place], [address] Chloride [Moles/Vol] 103 mmol/L Normal 98-108 [facility] Comment on above: Performed By: #### L 100.0100, L300.3900, L500.2500, L300.4310 ####[facility] [address] [place], [address] CO2 [Moles/Vol] 26.0 mmol/L Normal 21.0-32.0 [facility] Comment on above: Performed By: #### L 100.0100, L300.3900, L500.2500, L300.4310 ####[facility] [address] [place], [address] Creatinine [Mass/Vol] 1.14 mg/dL Normal 0.70-1.[address] [facility] Comment on above: Performed By: #### L 100.0100, L300.3900, L500.2500, L300.4310 ####[facility] [address] [place], [address] GAP 11 Normal 5-15 [facility] Comment on above: Performed By: #### L 100.0100, L300.3900, L500.2500, L300.4310 ####[facility] [address] [place], [address] GFR/1.73 sq M.predicted among non-blacks MDRD (S/P/Bld) [Vol rate/Area] 67 mL/min/{1.73_m2} Normal >60 [facility] Comment on above: Result Comment: mL/m in/1.73m2 CKD-EPI Creatinine Equation (2020) Performed By: #### L 100.0100, L300.3900, L500.2500, L300.4310 ####[facility] [address] [place], [address] Glucose [Mass/Vol] 85 mg/dL Normal 70-99 [facility] Comment on above: Performed By: #### L 100.0100, L300.3900, L500.2500, L300.4310 ####[facility] [address] [place], [address] Potassium [Moles/Vol] 4.7 mmol/L Normal 3.3-5.[address] [facility] Comment on above: Performed By: #### L 100.0100, L300.3900, L500.2500, L300.4310 ####[facility] [address] [place], [address] Sodium [Moles/Vol] 141 mmol/L Normal 133-145 [facility] Comment on above: Performed By: #### L 100.0100, L300.3900, L500.2500, L300.4310 ####[facility] [address] [place], [address] Urea nitrogen [Mass/Vol] 25 mg/dL High 4-19 [facility] Comment on above: Performed By: #### L 100.0100, L300.3900, L500.2500, L300.4310 ####[facility] [address] [place], [address] Basophil percentageOrdered B y: Mai Rock on 02-06-2025 Basophils/100 WBC (Bld) 1.0 % 0-1 [facility] CBC W/Diff, Automatedon 01-13 Absolute Lymph 1.05 X10 3/uL Normal 0.83-4.51 [facility] Comment on above: Performed By: #### L 100.0100, L300.3900, L500.2500, L300.4310 ####[facility] [address] [place], [address] Absolute Neut 3.1 X10 3/uL Normal 2.0-7.7 [facility] Comment on above: Performed By: #### L 100.0100, L300.3900, L500.2500, L300.4310 ####[facility] [address] [place], [address] Basophils/100 WBC (Bld) 1.0 % Normal 0-1 [facility] Comment on above: Performed By: #### L 100.0100, L300.3900, L500.2500, L300.4310 ####[facility] [address] [place], [address] Eosinophils/100 WBC (Bld) 2.4 % Normal 0-5 [facility] Comment on above: Performed By: #### L 100.0100, L300.3900, L500.2500, L300.4310 ####[facility] [address] [place], [address] Erythrocyte distribution width (RBC) [Ratio] 13.9 % Normal 11.6-14.6 [facility] Comment on above: Performed By: #### L 100.0100, L300.3900, L500.2500, L300.4310 ####[facility] [address] [place], [address] Hematocrit (Bld) [Volume fraction] 41.4 % Normal 40-54 [facility] Comment on above: Performed By: #### L 100.0100, L300.3900, L500.2500, L300.4310 ####[facility] [address] [place], [address] Hemoglobin (Bld) [Mass/Vol] 13.7 g/dL Normal 13.0-16.5 [facility] Comment on above: Performed By: #### L 100.0100, L300.3900, L500.2500, L300.4310 ####[facility] [address] [place], [address] IG% 0.000 Normal 0.0-0.9 [facility] Comment on above: Result Comment: IG% - Immature Granulocytes (promyelocytes, myelocytes and metamyelocytes) > 1% indicates that a LEFT SHIFT is Present. Performed By: #### L 100.0100, L300.3900, L500.2500, L300.4310 ####[facility] [address] [place], [address] Lymphocytes/100 WBC (Bld) 21.4 % Normal 19-41 [facility] Comment on above: Performed By: #### L 100.0100, L300.3900, L500.2500, L300.4310 ####[facility] [address] [place], [address] MCH (RBC) [Entitic mass] 30.4 pg Normal 27.0-32.0 [facility] Comment on above: Performed By: #### L 100.0100, L300.3900, L500.2500, L300.4310 ####[facility] [address] [place], [address] MCHC (RBC) [Mass/Vol] 33.1 g/dL Normal 32-[address] [facility] Comment on above: Performed By: #### L 100.0100, L300.3900, L500.2500, L300.4310 ####[facility] [address] [place], [address] MCV (RBC) [Entitic vol] 91.8 fL Normal 80-94 [facility] Comment on above: Performed By: #### L 100.0100, L300.3900, L500.2500, L300.4310 ####[facility] [address] [place], [address] Monocytes/100 WBC (Bld) 11.0 % High 0-10 [facility] Comment on above: Performed By: #### L 100.0100, L300.3900, L500.2500, L300.4310 ####[facility] [address] [place], [address] Neutrophils/100 WBC (Bld) 64.2 % Normal 47-70 [facility] Comment on above: Performed By: #### L 100.0100, L300.3900, L500.2500, L300.4310 ####[facility] [address] [place], [address] Nucleated RBC (Bld) [#/Vol] 0 10*3/uL Normal 0-5 [facility] Comment on above: Performed By: #### L 100.0100, L300.3900, L500.2500, L300.4310 ####[facility] [address] [place], [address] Platelet mean volume (Bld) [Entitic vol] 11.5 fL Normal 6.2-12.0 [facility] Comment on above: Performed By: #### L 100.0100, L300.3900, L500.2500, L300.4310 ####[facility] [address] [place], [address] Platelets (Bld) [#/Vol] 232 10*3/uL Normal 150-450 [facility] Comment on above: Performed By: #### L 100.0100, L300.3900, L500.2500, L300.4310 ####[facility] [address] [place], [address] RBC (Bld) [#/Vol] 4.51 10*6/uL Low 4.6-6.2 [facility] Comment on above: Performed By: #### L 100.0100, L300.3900, L500.2500, L300.4310 ####[facility] [address] [place], [address] RDW SD 46.9 fl High 35.1-43.9 [facility] Comment on above: Performed By: #### L 100.0100, L300.3900, L500.2500, L300.4310 ####[facility] [address] [place], [address] WBC (Bld) [#/Vol] 4.9 10*3/uL Normal 4.4-11.0 [facility] Comment on above: Performed By: #### L 100.0100, L300.3900, L500.2500, L300.4310 ####[facility] [address] [place], [address] Carbon dioxide, total [Moles /volume] in Central venous bloodOrdered By: Mai Rock on 02-06-2025 CO2 [Moles/Vol] 26.0 mmol/L 21.0-32.0 [facility] Chest PA and Lateralon 02-06 Chest PA and Lateral [facility] Imaging Services [address] [place] [address] Chest PA and Lateral MR#: [id number] Acct: [id number] Name: ABRAHAN CALVERT Rep #: [id number] : 1950 M 74 From: Tong Barclay MD PCP: Dr. Lawrence Wilson MD Status: REG CLI Study: Chest PA and Lateral Date of Exam: 02/06/25 Exam# [id number] Ordering Dr: Mai Rock PA EXAM: X-ray chest PA and lateral CLINICAL HISTORY: Shortness of breath COMPARISON: 12/02/2023 TECHNIQUE: PA and lateral views of the chest, 2 PA views of the include the entire chest, 3 total images FINDINGS: The lungs are clear. Pulmonary vascularity appears within limits. No pleural effusion. The cardiac and mediastinal contours are within limits. Atherosclerotic calcification at the aortic arch again noted. The visualized osseous structures appear within limits. RAD/Chest PA and Lateral IMPRESSION: No evidence of acute disease. Reading Location: [facility] CC: Dr. Lawrence Wilson MD; NGOC Li Dynamometer Tester: Signed Normal [facility] Chloride assayOrdered By: Kriss Rock on 02-06-2025 Chloride [Moles/Vol] 103 mmol/L 98-108 [facility] Eosinophil percentageOrdered By: Mai Rock on 02-06-2025 Eosinophils/100 WBC (Bld) 2.4 % 0-5 [facility] Erythrocyte distribution wid th ratioOrdered By: Mai Rock on 02-06-2025 Erythrocyte distribution width (RBC) [Ratio] 13.9 % 11.6-14.6 [facility] Erythrocyte distribution wid th standard deviationOrdered By: Mai Rock on 02-06-2025 Erythrocyte distribution width (RBC) [Entitic vol] 46.9 fL High 35.1-43.9 [facility] Erythrocyte distribution width (RBC) [Ratio] 46.9 fl High 35.1-43.9 [facility] GFR/1.73 sq M.predicted jamie g non-blacks MDRD (S/P/Bld) [Vol rate/Area]Ordered By: Mai Rock on 02-06-2025 Estimated GFR (MDRD) Non-Af Amer 67 >60 [facility] Comment on above: mL/min/1.73m2 CKD-EP I Creatinine Equation (2020) Glomerular filtration rate ( GFR) estimation/1.73 sq m using serum, plasma, or whole bOrdered By: Mai Rock on 02-06-2025 GFR/1.73 sq M.predicted among non-blacks MDRD (S/P/Bld) [Vol rate/Area] 67 mL/min/{1.73_m2} >60 [facility] Comment on above: mL/min/1.73m2 CKD-EP I Creatinine Equation (2020) Hematocrit Auto (Bld) [Volum e fraction]Ordered By: Mai Rock on 02-06-2025 Hematocrit (Bld) [Volume fraction] 41.4 % 40-54 [facility] Hemoglobin measurementOrdere d By: Mai Rock on 02-06-2025 Hemoglobin (Bld) [Mass/Vol] 13.7 g/dL 13.0-16.5 [facility] Immature granulocytes/100 WB C Auto (Bld)Ordered By: Mai Rock on 02-06-2025 Immature granulocytes/100 WBC (Bld) 0.000 % 0.0-0.9 [facility] Comment on above: IG% - Immature Granu locytes (promyelocytes, myelocytes and metamyelocytes) > 1% indicates that a LEFT SHIFT is Present. International normalized rat io (INR) calculationOrdered By: Mai Rock on 02-06-2025 INR Coag (Bld) [Relative time] 1.1 {INR} [facility] Lymphocytes Auto (Unsp spec) [#/Vol]Ordered By: Mai Rock on 02-06-2025 Lymphocytes (Bld) [#/Vol] 1.05 10*3/uL 0.83-4.51 [facility] Lymphocytes/100 WBC Auto (Un sp spec)Ordered By: Mai Rock on 02-06-2025 Lymphocytes/100 WBC (Bld) 21.4 % 19-41 [facility] MCV (mean corpuscular volume ) determinationOrdered By: Mai Rock on 02-06-2025 MCV (RBC) [Entitic vol] 91.8 fL 80-94 [facility] Mean corpuscular hemoglobin (MCH) determinationOrdered By: Mai Rock on 02-06-2025 MCH (RBC) [Entitic mass] 30.4 pg 27.0-32.0 [facility] Mean corpuscular hemoglobin concentration (MCHC) determinationOrdered By: Mai Rock on 02-06-2025 MCHC (RBC) [Mass/Vol] 33.1 g/dL 32-[address] [facility] Mean platelet volume determi nationOrdered By: Mai Rock on 02-06-2025 Platelet mean volume (Bld) [Entitic vol] 11.5 fL 6.2-12.0 [facility] Monocyte percentageOrdered B y: Mai Rock on 02-06-2025 Monocytes/100 WBC (Bld) 11.0 % High 0-10 [facility] Neutrophil percentageOrdered By: Mai Rock on 02-06-2025 Neutrophils/100 WBC (Bld) 64.2 % 47-70 [facility] Nucleated red blood cell per centageOrdered By: Mai Rock on 02-06-2025 Nucleated RBC/100 WBC (Bld) [Ratio] 0 % 0-5 [facility] Partial Thromboplast Timeon 02-06-2025 aPTT Coag (Bld) [Time] 26.7 s Normal 24.1-36.2 [facility] Comment on above: Performed By: #### L 100.0100, L300.3900, L500.2500, L300.4310 ####[facility] [address] [place], [address] Platelet countOrdered By: Kriss Rock on 02-06-2025 Platelets (Bld) [#/Vol] 232 10*3/uL 150-450 [facility] Potassium (Unsp spec) [Mass/ Vol]Ordered By: Mai Rock on 02-06-2025 Potassium [Moles/Vol] 4.7 mmol/L 3.3-5.[address] [facility] Potassium measurement (mass/ volume)Ordered By: Mai Rock on 02-06-2025 Potassium (Unsp spec) [Mass/Vol] 4.7 mmol/L 3.3-5.1 [facility] Prothrombin Time w/INRon INR Coag (PPP) [Relative time] 1.1 {INR} Normal [facility] Comment on above: Performed By: #### L 100.0100, L300.3900, L500.2500, L300.4310 ####[facility] [address] [place], [address] PT Coag (PPP) [Time] 14.4 s Normal 11.7-14.9 [facility] Comment on above: Performed By: #### L 100.0100, L300.3900, L500.2500, L300.4310 ####[facility] [address] [place], [address] Prothrombin timeOrdered By: Mai Rock on 02-06-2025 PT Coag (PPP) [Time] 14.4 s 11.7-14.9 [facility] RBC Auto (Bld) [#/Vol]Ordere d By: Mai Rock on 02-06-2025 RBC (Bld) [#/Vol] 4.51 10*6/uL Low 4.6-6.2 [facility] Serum creatinine measurement (mass/volume)Ordered By: Mai Rock on 02-06-2025 Creatinine [Mass/Vol] 1.14 mg/dL 0.70-1.[address] [facility] Serum glucose measurement (m ass/volume)Ordered By: Mai Rock on 02-06-2025 Glucose [Mass/Vol] 85 mg/dL 70-99 [facility] Serum or plasma calcium ash urement (mass/volume)Ordered By: Mai Rock on 02-06-2025 Calcium [Mass/Vol] 9.5 mg/dL 7.6-11.0 [facility] Serum or plasma urea nitroge n measurement (mass/volume)Ordered By: Mai Rock on 02-06-2025 Urea nitrogen [Mass/Vol] 25 mg/dL High 4-19 [facility] Sodium levelOrdered By: [place] Rock on 02-06-2025 Sodium [Moles/Vol] 141 mmol/L 133-145 [facility] White blood cell (WBC) count Ordered By: Mai Rock on 02-06-2025 WBC (Bld) [#/Vol] 4.9 10*3/uL 4.4-11.0 [facility] aPTT Coag (PPP) [Time]Ordere d By: Mai Rock on 02-06-2025 aPTT Coag (Bld) [Time] 26.7 s 24.1-36.2 [facility] Cardiology Visit Reporton Cardiology Visit Report [facility] [address] [place], [place] [address] OFFICE VISIT Date of Service: 02/05/25 MR#: [id number] Acct: [id number] Name: ABRAHAN CALVERT Rep #: [id number] : 1950 Provider: NGOC Gaxiola Age/Sex: 74/M Location: [facility] Status: Signed HPI HPI History of Present Illness Details: Abrahan Calvert is a 74 year-old white male with a history of underlying CAD status post LAD PCI (08/11/21), hyperlipidemia, carotid artery disease, and dizziness. Pt noted CP, fatigue and dizziness to his PCP. He did undergo a stress test, this demonstrated Moderate mid anterior ischemia at a moderate exercise tolerance. His stress test in 2022 was negative at a high workload. He is also have decreased exercise tolerance that has gotten worse over the last year. He also notes that his is now having higher BP readings, this is new for him. Intake Vital Signs 09/28/24 08:27 02/05/25 07:23 Height 6 ft 3 in 6 ft 3 in Weight: 203 lb BMI 25.3 BP 154/79 H Blood Pressure Location Lt brachial Position Sitting Respiration 18 Pulse Source Monitor Intake Visit Reasons: POSITIVE STRESS PER [place] [employer] Tester Required: No Is patient in pain?: No Allergies atorvastatin Adverse Reaction (Severe, Verified 02/05/25 10:53) myalgias pitavastatin (From Livalo) Adverse Reaction (Severe, Verified 02/05/25 10:53) Myalgias rosuvastatin Adverse Reaction (Severe, Verified 02/05/25 10:53) Myalgias Medications ???Medication ???Instructions ???Recorded ???Confirmed ???Type aspirin 81 mg tablet,delayed 81 mg PO DAILY 04/28/21 02/05/25 H istory release (Adult Aspirin Regimen) ezetimibe 10 mg tablet (Zetia) 10 mg PO DAILY 04/28/21 02/05/25 H istory meloxicam 15 mg tablet (Mobic) 15 mg PO DAILY 04/28/21 02/05/25 H istory multivitamin with minerals-folic 1 tab PO DAILY 04/28/21 02/05/25 H istory acid 0.4 mg tablet (Adult One Daily Multivitamin) tamsulosin 0.4 mg capsule (Flomax) 0.4 mg PO QHS 04/28/21 02/05/25 History tadalafil 5 mg tablet (Cialis) 5 mg PO DAILY PRN sexual activity 03/04/22 02/05/25 History amlodipine 2.5 mg tablet 2.5 mg PO QDAY #30 tabs 02/05/25 0 02/05/25 Rx losartan 50 mg tablet 50 mg PO QDAY 02/05/25 02/05/25 Hi story Ejection fraction %: 65 Have you fallen in the past year?: Yes Nurse's Note: patient is on two other medications, does not know medications. patient was encouraged to call with medications [facility] Medical History (Updated 02/06/25 @ 16:13 by Mai GROSSMAN, PA) Essential hypertension Abnormal stress test Presence of stent in coronary artery ( 08/11/21) Atherosclerotic heart disease of [place] coronary artery without angina pectoris Bilateral carotid artery disease History of prostate cancer Sinus bradycardia Mixed hyperlipidemia Surgical History Presence of coronary angioplasty implant and graft ( 08/11/21) History of tonsillectomy History of appendectomy History of left inguinal hernia repair Social History Smoking Status: Never smoker alcohol intake: current details: occasional substance use type: does not use caffeine: Yes Type: tea ROS Const Const: Positive for fatigue and weakness; Negative for headache(s) or frequent falls Eyes Eyes: Negative for blurry vision ENT ENT: Negative for headache(s), dizziness or Nosebleed/epistaxis Cardio Chest Pain: Yes Palpitations: Yes Edema: None Muscle aches with walking: None Resp Respiratory: Positive for SOB with activity and SOB at rest; Negative for SOB orthopnea SOB lying down GI GI: Negative nausea, vomiting, heartburn, bright, red blood in stools or black,tarry stools : Negative for hematuria Neuro Neuro: Positive for weakness; Negative for dizziness, lightheadedness, near syncope, syncope, frequent falls, headache(s) or blurry vision Endo Endo: Positive for fatigue Cardiology Exam Const Appearance: cooperative, healthy appearing, comfortable, no acute distress and well developed Orientation: alert, awake and oriented x3 Head Head: normal to inspection Ears: hearing grossly normal bilaterally Nose: external nose normal Face and Sinus: face symmetric Mouth: oral mucosae normal, lip normal and moist mucous membranes Eyes General: appearance normal, both eyes and all related structures Eyelids: eyelids normal Conjunctivae: conjunctivae normal Pupils: PERRL EOM: EOM intact bilaterally Neck Neck: normal visual inspection and trachea midline; Negative no JVD Carotids: Negative bruit Chest Chest inspection: normal inspection of the chest Auscultation: Bilateral: Clear to Auscultation Cardi (more content not included)... Normal [facility] Duplex ultrasound of carotid artery reportOrdered By: Tremayne Loyola on 02-02-2025 Study report [facility] [address] [place] [address] Carotid Duplex Ultrasound 02/01/25 0917 MR#: [id number] Acct: [id number] Name: ABRAHAN CALVERT Rep #:[id number] : 1950 74 From: Tremayne Loyola MD Attending Dr: Dr. Lawrence Wilson MD Status: REG CLI Ordering Dr: Lawrence Wilson MD Date: 02/01/25 Location: [facility] Sex: M C Admitted: Reason For Study Reason For Study: Carotid stenosis Rt. Velocities/BP Lt. Velocities/BP Prox CCA 94.5/6.5 cm/sec. Prox CCA 106.0/18.2 cm/sec. Mid CCA 79.4/11.1 cm/sec. Mid CCA 60.5/11.4 cm/sec. Dist CCA 70.0/11.5 cm/sec. Dist CCA 64.5/8.8 cm/sec. Prox ICA 54.2/12.4 cm/sec. Prox ICA 46.6/8.8 cm/sec. Mid ICA 82.8/21.2 cm/sec. Mid ICA 60.8/14.6 cm/sec. Dist ICA 75.1/15.7 cm/sec. Dist ICA 54.2/13.5 cm/sec. Rt. ICA/CCA = 1.0. Lt. ICA/CCA = 1.0. Prox ECA 84.6/9.7 cm/sec. Prox ECA 66.4/6.9 cm/sec. Rt. Vert. 48.7/11.3 cm/sec. Lt. Vert. 46.5/10.2 cm/sec. Right Extracranial There is homogeneous, smooth atherosclerotic plaque noted in the right common carotid artery. There is heterogeneous, irregular atherosclerotic plaque noted in the right internal carotid artery. There is homogeneous, smooth atherosclerotic plaque noted in the right external carotid artery. Antegrade flow is noted in the right vertebral artery. Left Extracranial There is intimal thickening but no significant atherosclerotic plaque noted in the left common carotid artery. There is heterogeneous, irregular atherosclerotic plaque noted in the left internal carotid artery. There is heterogeneous, irregular atherosclerotic plaque noted in the left external carotid artery. Antegrade flow is noted in the left vertebral artery. Procedure Carotid Duplex 25621. This is a Carotid Duplex examination using B-mode, color flow and specral Doppler. Exam performed in department. VL/Carotid Duplex Ultrasound Interpretation Summary Mild (<50%) stenosis right extracranial internal carotid. Mild (<50%) stenosis left extracranial internal carotid. Flow within the vertebral arteries is antegrade bilaterally. Ordering Physician: Lawrence Wilson Referring Physician: Lawrence Wilson Performed By: Mary Stallings 02/02/25 1113 Date _ Tremayne Loyola MD CC: Dr. Lawrence Wilson MD ~ Date Dictated: 02/01/25916 Date Transcribed: 02/02/251112 Dynamometer Tester: Signed [facility] Other Cardiovascular stress test r eportOrdered By: Michael Freeman on 02-01-2025 Study report [facility] [address] [place] [address] MR#: [id number] Acct: [id number] Name: ABRAHAN CALVERT Rep #: [id number] : 1950 74 From: Michael Freeman MD Primary Care: Dr. Lawrence Wilson MD Sta tus: REG CLI Referring Dr: Lawrence Wilson MD Sex: M C Stress Test Report Exercise myocardial perfusion stress test. 74-year-old man with a history of coronary disease Stress protocol: Resting EKG demonstrates sinus bradycardia with a rate of 46 bpm resting blood pressure is 150/74 mmHg. The patient exercised according to the regular Bang protocol for a total duration of 6 minutes and 26 seconds attaining a maximum heart rate of 125 bpm which was 86% of maximum predicted heart rate; the maximumworkload was 8.2 metabolic equivalents. At rest there were no ST or T wave changes noted to suggest ischemia and at peak exercise upsloping ST changes onlywere noted which did not meet the criteria for ischemia. No clinical angina wasnoted the test was terminated due to the target heart rate being achieved/fatigue. The peak blood pressure was 184/60 mmHg. Rate-pressure product was 18,800. Myocardial perfusion protocol. 13.9 mCi of technetium 99m sestamibi was injected at rest. The patient exercised according to regular Bang protocol for total duration of 6 minutes and 26 and at peak exercise 40.3 mCi of technetium 99m sestamibi was injected stress images were obtained stress and rest images were reconstructed in comparing the short axis vertical long and horizontal long axis. Gated images were also obtained. Perfusion SPECT analysis: Review of the stress images demonstrate normal uptake of tracer noted in all areas of the myocardium except for small area in the mid anterior wall with reduced perfusion. The resting images similarly demonstrate normal uptake of tracer noted in all areas of the myocardium. The above is suggestive of mid anterior wall ischemia. Gated SPECT analysis: The gated ejection fraction is 68%. Conclusion: Abnormal exercise myocardial perfusion stress test at a moderate workload Preserved ejection fraction. Moderate mid anterior ischemia 02/01/25903 Date _ Michael Freeman MD CC: Dr. Lawrence Wilson MD ~ Date Dictated: 02/01/25902 Date Transcribed: 02/01/25902 Dynamometer Tester: [place] Signed [facility] Work Phone: Carotid Duplex Ultrasoundon 02-01-2025 Carotid Duplex Ultrasound [facility] [address] [place] [address] Carotid Duplex Ultrasound 02/01/25916 MR#: [id number] Acct: [id number] Name: ABRAHAN CALVERT Rep #: [id number] : 1950 74 From: Tremayne Loyola MD Attending Dr: Dr. Lawrence Wilson MD Status: R EG I Ordering Dr: Lawrence Wilson MD Date: 02/01/25 Location: [facility] Sex: M C Admitted: Reason For Study Reason For Study: Carotid stenosis Rt. Velocities/BP Lt. Velocities/BP Prox CCA 94.5/6.5 cm/sec. Prox CCA 106.0/18.2 cm/sec. Mid CCA 79.4/11.1 cm/sec. Mid CCA 60.5/11.4 cm/sec. Dist CCA 70.0/11.5 cm/sec. Dist CCA 64.5/8.8 cm/sec. Prox ICA 54.2/12.4 cm/sec. Prox ICA 46.6/8.8 cm/sec. Mid ICA 82.8/21.2 cm/sec. Mid ICA 60.8/14.6 cm/sec. Dist ICA 75.1/15.7 cm/sec. Dist ICA 54.2/13.5 cm/sec. Rt. ICA/CCA = 1.0. Lt. ICA/CCA = 1.0. Prox ECA 84.6/9.7 cm/sec. Prox ECA 66.4/6.9 cm/sec. Rt. Vert. 48.7/11.3 cm/sec. Lt. Vert. 46.5/10.2 cm/sec. Right Extracranial There is homogeneous, smooth atherosclerotic plaque noted in the right common carotid artery. There is heterogeneous, irregular atherosclerotic plaque noted in the right internal carotid artery. There is homogeneous, smooth atherosclerotic plaque noted in the right external carotid artery. Antegrade flow is noted in the right vertebral artery. Left Extracranial There is intimal thickening but no significant atherosclerotic plaque noted in the left common carotid artery. There is heterogeneous, irregular atherosclerotic plaque noted in the left internal carotid artery. There is heterogeneous, irregular atherosclerotic plaque noted in the left external carotid artery. Antegrade flow is noted in the left vertebral artery. Procedure Carotid Duplex 48863. This is a Carotid Duplex examination using B-mode, color flow and specral Doppler. Exam performed in department. VL/Carotid Duplex Ultrasound Interpretation Summary Mild (<50%) stenosis right extracranial internal carotid. Mild (<50%) stenosis left extracranial internal carotid. Flow within the vertebral arteries is antegrade bilaterally. Ordering Physician: Lawrence Wilson Referring Physician: Lawrence Wilson Performed By: Mary Stallings 02/02/251112 Date Tremayne Loyola MD CC: Dr. Lawrence Wilson MD Date Dictated: 02/01/25916 Date Transcribed: 03/22/25 1113 Dynamometer Tester: Signed Normal [facility] Echo Completeon 02-01-2025 Echo Complete [facility] [place] [address] [place] [address] Echo Complete 02/01/25 0829 MR#: [id number] Acct: [id number] Name: ABRAHAN CALVERT Rep #: [id number] : 1950 74 From: Michael Freeman MD Attending Dr: Dr. Lawrence Wilson MD Status: R MISSY PRADOI Ordering Dr: Lawrence Wilson MD Date: 02/01/25 Location: [facility] Sex: M C Admitted: Reason For Study Reason For Study: SOB on exertion Procedure This was a 2D Doppler, Color Flow transthoracic echocardiogram. Exam performed in department. Left Ventricle Normal LV size. Left ventricular systolic function is normal. The left ventricular ejection fraction is 60 %. No regional wall motion abnormalities noted. Right Ventricle Normal RV size. Normal systolic function. Atria Normal left atrium. Normal right atrium. Mitral Valve Normal mitral valve. Mild (1+) eccentric mitral valve insufficiency. Tricuspid Valve Normal tricuspid valve. Aortic Valve Normal aortic valve. Trisinus/trileaflet aortic valve. Pulmonic Valve Normal pulmonic valve. Great Vessels Normal aortic root. The pulmonary artery is normal size. Inferior vena cava collapse with respiration. Pericardium/Pleural No pericardial effusion. MMode/2D Measurements Calculations LVIDd: 4.0 cm IVSd: 1.4 cm Ao root diam: 3.7 cm LVIDs: 2.7 cm LVPWd: 1.1 cm RVDd: 4.1 cm FS: 31.5 % LAV(MOD-bp): 56.4 ml LVAd ap4: 28.1 cm2 SV(MOD-sp4): 50.0 ml LAV(MOD-bp) Indexed: 25.7 ml/m2 LVLd ap4: 7.5 cm SI(MOD-sp4): 22.8 ml/m2 LAV(MOD-sp2): 62.8 ml EDV(MOD-sp4): 86.4 ml LAV(MOD-sp4): 46.3 ml EDV(sp4-el): 89.1 ml LVAs ap4: 16.4 cm2 LVLs ap4: 6.3 cm ESV(MOD-sp4): 36.4 ml ESV(sp4-el): 36.5 ml EF(MOD-sp4): 57.8 % EF(sp4-el): 59.0 % SV(sp4-el): 52.5 ml LA A4 area: 17.1 cm2 LA dimension(2D): 3.6 cm RA A4 area: 16.7 cm2 TAPSE: 2.3 cm Time Measurements MV dec time: 0.24 sec Doppler Measurements Calculations MV E max eric: 72.2 cm/sec Lat Peak E' Eric: 11.7 cm/sec Med Peak E' Eric: 10.9 cm/sec MV A max eric: 67.8 cm/sec E/E' lat: 6.2 E/E' med: 6.6 MV E/A: 1.1 MV V2 max: 70.2 cm/sec MV P1/2t max eric: 69.5 cm/sec Ao V2 max: 125.3 cm/sec MV max P.0 mmHg MV P1/2t: 74.0 msec Ao max P.3 mmHg MV V2 mean: 34.7 cm/sec Ao V2 mean: 82.1 cm/sec MV mean P.58 mmHg MV dec slope: 275.0 cm/sec2 Ao mean P.2 mmHg MV V2 VTI: 30.3 cm MVA(P1/2t): 3.0 cm2 Ao V2 VTI: 31.2 cm AV (velocity ratio): 0.94 LV V1 max: 116.0 cm/sec PA V2 max: 121.8 cm/sec PI end-d eric: 109.6 cm/sec LV V1 max P.4 mmHg LV V1 mean P.7 mmHg LV V1 mean: 76.5 cm/sec LV V1 VTI: 29.4 cm TR max eric: 229.7 cm/sec TR max P.1 mmHg ECHO/Echo Complete Interpretation Summary Normal LV size. Left ventricular systolic function is normal. The left ventricular ejection fraction is 60 %. Mild (1+) eccentric mitral valve insufficiency. Ordering Physician: Lawrence Wilson Referring Physician: Lawrence Wilson Performed By: Amadeo Valdez RCS 02/01/25 1125 Date Michael Freeman MD CC: Dr. Lawrence Wilson MD Date Dictated: 02/01/25828 Date Transcribed: 02/01/251124 Dynamometer Tester: Signed Normal [facility] Echocardiogram study reportO rdered By: Michael Freeman on 02-01-2025 Study report [facility] [address] [place] [address] Echo Complete 02/01/25828 MR#: [id number] Acct: [id number] Name: ABRAHAN CALVERT Rep #:[id number] : 1950 74 From: Michael Doshi Attending Dr: Dr. Lawrence Wilson MD Status: REG CLI Ordering Dr: Lawrence Wilson MD Date: 02/01/25 Location: [facility] Sex: M C Admitted: Reason For Study Reason For Study: SOB on exertion Procedure This was a 2D Doppler, Color Flow transthoracic echocardiogram. Exam performed in department. Left Ventricle Normal LV size. Left ventricular systolic function is normal. The left ventricular ejection fraction is 60 %. No regional wall motion abnormalities noted. Right Ventricle Normal RV size. Normal systolic function. Atria Normal left atrium. Normal right atrium. Mitral Valve Normal mitral valve. Mild (1+) eccentric mitral valve insufficiency. Tricuspid Valve Normal tricuspid valve. Aortic Valve Normal aortic valve. Trisinus/trileaflet aortic valve. Pulmonic Valve Normal pulmonic valve. Great Vessels Normal aortic root. The pulmonary artery is normal size. Inferior vena cava collapse with respiration. Pericardium/Pleural No pericardial effusion. MMode/2D Measurements & Calculations LVIDd: 4.0 cm IVSd: 1.4 cm Ao root diam: 3.7 cm LVIDs: 2.7 cm LVPWd: 1.1 cm RVDd: 4.1 cm FS: 31.5 % LAV(MOD-bp): 56.4 ml LVAd ap4: 28.1 cm2 SV(MOD-sp4): 50.0 ml LAV(MOD-bp) Indexed: 25.7 ml/m2 LVLd ap4: 7.5 cm SI(MOD-sp4): 22.8 ml/m2 LAV(MOD-sp2): 62.8 ml EDV(MOD-sp4): 86.4 ml LAV(MOD-sp4): 46.3 ml EDV(sp4-el): 89.1 ml LVAs ap4: 16.4 cm2 LVLs ap4: 6.3 cm ESV(MOD-sp4): 36.4 ml ESV(sp4-el): 36.5 ml EF(MOD-sp4): 57.8 % EF(sp4-el): 59.0 % SV(sp4-el): 52.5 ml LA A4 area: 17.1 cm2 LA dimension(2D): 3.6 cm RA A4 area: 16.7 cm2 TAPSE: 2.3 cm Time Measurements MV dec time: 0.24 sec Doppler Measurements & Calculations MV E max eric: 72.2 cm/sec Lat Peak E' Eric: 11.7 cm/sec Med Peak E' Eric: 10.9 cm/sec MV A max eric: 67.8 cm/sec E/E' lat: 6.2 E/E' med: 6.6 MV E/A: 1.1 MV V2 max: 70.2 cm/sec MV P1/2t max eric: 69.5 cm/sec Ao V2 max: 125.3 cm/sec MV max P.0 mmHg MV P1/2t: 74.0 msec Ao max P.3 mmHg MV V2 mean: 34.7 cm/sec Ao V2 mean: 82.1 cm/sec MV mean P.58 mmHg MV dec slope: 275.0 cm/sec2 Ao mean P.2 mmHg MV V2 VTI: 30.3 cm MVA(P1/2t): 3.0 cm2 Ao V2 VTI: 31.2 cm AV (velocity ratio): 0.94 LV V1 max: 116.0 cm/sec PA V2 max: 121.8 cm/sec PI end-d eric: 109.6 cm/sec LV V1 max P.4 mmHg LV V1 mean P.7 mmHg LV V1 mean: 76.5 cm/sec LV V1 VTI: 29.4 cm TR max eric: 229.7 cm/sec TR max P.1 mmHg ECHO/Echo Complete Interpretation Summary Normal LV size. Left ventricular systolic function is normal. The left ventricular ejection fraction is 60 %. Mild (1+) eccentric mitral valve insufficiency. Ordering Physician: Lawrence Wilson Referring Physician: Lawrence Wilson Performed By: Amadeo Valdez RCS 02/01/25 1125 Date _ Michael Freeman MD CC: Dr. Lawrence Wilson MD ~ Date Dictated: 02/01/25828 Date Transcribed: 02/01/251124 Dynamometer Tester: Signed [facility] Work Phone: Stress Reporton 02-01-2025 Stress Report [facility] [address] [place] [address] MR#: [id number] Acct: [id number] Name: ABRAHAN CALVERT Rep #: [id number] : 1950 74 From: Michael Freeman MD Primary Care: Dr. Lawrence Wilson MD Status: REG CLI Referring Dr: Lawrence Wilson MD Sex: M C Stress Test Report Exercise myocardial perfusion stress test. 74-year-old man with a history of coronary disease Stress protocol: Resting EKG demonstrates sinus bradycardia with a rate of 46 bpm resting blood pressure is 150/74 mmHg. The patient exercised according to the regular Bang protocol for a total duration of 6 minutes and 26 seconds attaining a maximum heart rate of 125 bpm which was 86% of maximum predicted heart rate; the maximum workload was 8.2 metabolic equivalents. At rest there were no ST or T wave changes noted to suggest ischemia and at peak exercise upsloping ST changes only were noted which did not meet the criteria for ischemia. No clinical angina was noted the test was terminated due to the target heart rate being achieved/fatigue. The peak blood pressure was 184/60 mmHg. Rate- pressure product was 18,800. Myocardial perfusion protocol. 13.9 mCi of technetium 99m sestamibi was injected at rest. The patient exercised according to regular Bang protocol for total duration of 6 minutes and 26 and at peak exercise 40.3 mCi of technetium 99m sestamibi was injected stress images were obtained stress and rest images were reconstructed in comparing the short axis vertical long and horizontal long axis. Gated images were also obtained. Perfusion SPECT analysis: Review of the stress images demonstrate normal uptake of tracer noted in all areas of the myocardium except for small area in the mid anterior wall with reduced perfusion. The resting images similarly demonstrate normal uptake of tracer noted in all areas of the myocardium. The above is suggestive of mid anterior wall ischemia. Gated SPECT analysis: The gated ejection fraction is 68%. Conclusion: Abnormal exercise myocardial perfusion stress test at a moderate workload Preserved ejection fraction. Moderate mid anterior ischemia 03/21/25 0904 Date Michael Freeman MD CC: Dr. Lawrence Wilson MD Date Dictated: 02/01/25902 Date Transcribed: 02/01/25902 Dynamometer Tester: [place] Signed Normal [facility] Ferritinon 01-03-2025 Ferritin [Mass/Vol] 55 ng/mL Normal 26-388 [facility] Comment on above: Order Comment: DANIEL Camarillo ADD B12 [place] IBC TO BLOOD DRAWN 01/02/25 PERDR.SCHINNEROrder Date: 01/02/25Order Info: [id number] - CMPOrder Info: [id number] - LIPIDOrder Date: 09/26/24Order Info: [id number] - MGOrder Info: [id number] - TSH Performed By: #### L 503.0105, L503.6030, L400.0001, L503.6550 ####[facility] [address] [place], [place], [address] Iron+Iron Binding Capacityon 01-03-2025 Iron [Mass/Vol] 70 ug/dL Normal 65-175 [facility] Comment on above: Order Comment: DANIEL Camarillo ADD B12 [place] IBC TO BLOOD DRAWN 01/02/25 PERDR.SCHINNEROrder Date: 01/02/25Order Info: [id number] - CMPOrder Info: [id number] - LIPIDOrder Date: 09/26/24Order Info: [id number] - MGOrder Info: [id number] - TSH Performed By: #### L 503.0105, L503.6030, L400.0001, L503.6550 ####[facility] [address] [place], [address] IRON SATURATION 22.2 Normal 15.0-55.0 [facility] Comment on above: Order Comment: DANIEL Camarillo ADD B12 [place] IBC TO BLOOD DRAWN 01/02/25 PERDR.SCHINNEROrder Date: 01/02/25Order Info: [id number] - CMPOrder Info: [id number] - LIPIDOrder Date: 09/26/24Order Info: [id number] - MGOrder Info: [id number] - TSH Performed By: #### L 503.0105, L503.6030, L400.0001, L503.6550 ####[facility] [address] [place], [address] TIBC 315 ug/dL Normal 250-450 [facility] Comment on above: Order Comment: DANIEL Camarillo ADD B12 [place] IBC TO BLOOD DRAWN 01/02/25 KENOrder Date: 01/02/25Order Info: [id number] - CMPOrder Info: [id number] - LIPIDOrder Date: 09/26/24Order Info: [id number] - MGOrder Info: [id number] - TSH Performed By: #### L 503.0105, L503.6030, L400.0001, L503.6550 ####[facility] [address] [place], [address] Vitamin B12on 01-03-2025 Cobalamin (Vitamin B12) [Mass/Vol] 495 pg/mL Normal 211-911 [facility] Comment on above: Order Comment: DANIEL Camarillo ADD B12 [place] IBC TO BLOOD DRAWN 01/02/25 KEN Performed By: #### L 503.0105, L503.6030, L400.0001, L503.6550 ####[facility] [address] [place], [address] Absolute lymphocyte countOrd ered By: Lawrence Wilson on 01-02-2025 Lymphocytes Auto (Unsp spec) [#/Vol] 1.04 10*3/uL 0.83-4.51 [facility] Absolute neutrophil countOrd ered By: Lawrence Wilson on 01-02-2025 Neutrophils (Bld) [#/Vol] 2.8 10*3/uL 2.0-7.7 [facility] Albumin to globulin ratioOrd ered By: Lawrence Wilson on 01-02-2025 Albumin/Globulin [Mass ratio] 0.9 {ratio} 0.9-2.4 [facility] Automated lymphocyte count a s percentage of total leukocytesOrdered By: Lawrence Goncalveskamar on 01-02-2025 Lymphocytes/100 WBC Auto (Unsp spec) 22.4 % [facility] Basophil percentageOrdered B y: Lawrence Mathewsfany on 01-02-2025 Basophils/100 WBC (Bld) 0.9 % 0-1 [facility] Bilirubin Test strip Ql (U)O rdered By: Lawrence Wilson on 01-02-2025 Bilirubin Ql (U) Negative Negative [facility] Bilirubin, totalOrdered By: Lawrence Wilson on 01-02-2025 Bilirubin [Mass/Vol] 0.60 mg/dL 0.20-1.00 [facility] Comment on above: For patients on eltr ombopag therapy, use of Dimension Triangle TBIL is not recommended. Blood urea nitrogen (BUN)/cr eatinine ratioOrdered By: Lawrence Wilson on 01-02-2025 Urea nitrogen/Creatinine [Mass ratio] 24.0 mg/mg High 10 [facility] CBC W/Diff, Automatedon 12-15 Absolute Lymph 1.04 X10 3/uL Normal 0.83-4.51 [facility] Comment on above: Order Comment: Order Date: 03/28/24 Order Info: [id number] - CBCD Performed By: #### L 500.4100, L500.4050, L100.0100 #### [facility] [address] [place], [address] Absolute Neut 2.8 X10 3/uL Normal 2.0-7.7 [facility] Comment on above: Order Comment: Order Date: 03/28/24 Order Info: [id number] - CBCD Performed By: #### L 500.4100, L500.4050, L100.0100 #### [facility] [address] [place], [address] Basophils/100 WBC (Bld) 0.9 % Normal 0-1 [facility] Comment on above: Order Comment: Order Date: 03/28/24 Order Info: [id number] - CBCD Performed By: #### L 500.4100, L500.4050, L100.0100 #### [facility] [address] [place], [address] Eosinophils/100 WBC (Bld) 3.7 % Normal 0-5 [facility] Comment on above: Order Comment: Order Date: 03/28/24 Order Info: 0184-1 - CBCD Performed By: #### L 500.4100, L500.4050, L100.0100 #### [facility] [address] [place], [address] Erythrocyte distribution width (RBC) [Ratio] 13.6 % Normal 11.6-14.6 [facility] Comment on above: Order Comment: Order Date: 03/28/24 Order Info: 018- - CBCD Performed By: #### L 500.4100, L500.4050, L100.0100 #### [facility] [address] [place], [address] Hematocrit (Bld) [Volume fraction] 39.0 % Low 40-54 [facility] Comment on above: Order Comment: Order Date: 03/28/24 Order Info: 018- - CBCD Performed By: #### L 500.4100, L500.4050, L100.0100 #### [facility] [address] [place], [address] Hemoglobin (Bld) [Mass/Vol] 12.5 g/dL Low 13.0-16.5 [facility] Comment on above: Order Comment: Order Date: 03/28/24 Order Info: 0184-1 - CBCD Performed By: #### L 500.4100, L500.4050, L100.0100 #### [facility] [address] [place], [address] IG% 0.200 Normal 0.0-0.9 [facility] Comment on above: Order Comment: Order Date: 03/28/24 Order Info: 0184- - CBCD Result Comment: IG% - Immature Granulocytes (promyelocytes, myelocytes and metamyelocytes) > 1% indicates that a LEFT SHIFT is Present. Performed By: #### L 500.4100, L500.4050, L100.0100 #### [facility] [address] [place], [address] Lymphocytes/100 WBC (Bld) 22.4 % Normal 19-41 [facility] Comment on above: Order Comment: Order Date: 03/28/24 Order Info: 018- - CBCD Performed By: #### L 500.4100, L500.4050, L100.0100 #### [facility] [address] [place], [address] MCH (RBC) [Entitic mass] 29.3 pg Normal 27.0-32.0 [facility] Comment on above: Order Comment: Order Date: 03/28/24 Order Info: 018- - CBCD Performed By: #### L 500.4100, L500.4050, L100.0100 #### [facility] [address] [place], [address] MCHC (RBC) [Mass/Vol] 32.1 g/dL Normal 32-[address] [facility] Comment on above: Order Comment: Order Date: 03/28/24 Order Info: 0184- - CBCD Performed By: #### L 500.4100, L500.4050, L100.0100 #### [facility] [address] [place], [address] MCV (RBC) [Entitic vol] 91.5 fL Normal 80-94 [facility] Comment on above: Order Comment: Order Date: 03/28/24 Order Info: 0184- - CBCD Performed By: #### L 500.4100, L500.4050, L100.0100 #### [facility] [address] [place], [address] Monocytes/100 WBC (Bld) 12.1 % High 0-10 [facility] Comment on above: Order Comment: Order Date: 03/28/24 Order Info: 0184-1 - CBCD Performed By: #### L 500.4100, L500.4050, L100.0100 #### [facility] [address] [place], [address] Neutrophils/100 WBC (Bld) 60.7 % Normal 47-70 [facility] Comment on above: Order Comment: Order Date: 03/28/24 Order Info: 0184-1 - CBCD Performed By: #### L 500.4100, L500.4050, L100.0100 #### [facility] [address] [place], [address] Nucleated RBC (Bld) [#/Vol] 0 10*3/uL Normal 0-5 [facility] Comment on above: Order Comment: Order Date: 03/28/24 Order Info: 0184-1 - CBCD Performed By: #### L 500.4100, L500.4050, L100.0100 #### [facility] [address] [place], [address] Platelet mean volume (Bld) [Entitic vol] 11.2 fL Normal 6.2-12.0 [facility] Comment on above: Order Comment: Order Date: 03/28/24 Order Info: 0184-1 - CBCD Performed By: #### L 500.4100, L500.4050, L100.0100 #### [facility] [address] [place], [address] Platelets (Bld) [#/Vol] 202 10*3/uL Normal 150-450 [facility] Comment on above: Order Comment: Order Date: 03/28/24 Order Info: 0184-1 - CBCD Performed By: #### L 500.4100, L500.4050, L100.0100 #### [facility] [address] [place], [address] RBC (Bld) [#/Vol] 4.26 10*6/uL Low 4.6-6.2 [facility] Comment on above: Order Comment: Order Date: 03/28/24 Order Info: 0184-1 - CBCD Performed By: #### L 500.4100, L500.4050, L100.0100 #### [facility] [address] [place], [address] RDW SD 45.7 fl High 35.1-43.9 [facility] Comment on above: Order Comment: Order Date: 03/28/24 Order Info: 0184- - CBCD Performed By: #### L 500.4100, L500.4050, L100.0100 #### [facility] [address] [place], [address] WBC (Bld) [#/Vol] 4.6 10*3/uL Normal 4.4-11.0 [facility] Comment on above: Order Comment: Order Date: 03/28/24 Order Info: 0184- - CBCD Performed By: #### L 500.4100, L500.4050, L100.0100 #### [facility] [address] [place], [address] Carbon dioxide measurementOr dered By: Lawrence Wilson on 01-02-2025 CO2 [Moles/Vol] 26.0 mmol/L 21.0-32.0 [facility] Chloride measurementOrdered By: Lawrence Wilson on 01-02-2025 Chloride [Moles/Vol] 109 mmol/L High 98-107 [facility] Comprehensive Metabolic Prof ilon 01-02-2025 Albumin [Mass/Vol] 3.5 g/dL Normal 3.2-5.0 [facility] Comment on above: Order Comment: Order Date: 03/28/24 Order Info: 0184-1 - CBCD Performed By: #### L 500.4100, L500.4050, L100.0100 #### [facility] [address] [place], [address] Albumin/Globulin [Mass ratio] 0.9 {ratio} Normal 0.9-2.4 [facility] Comment on above: Order Comment: Order Date: 03/28/24 Order Info: 0184-1 - CBCD Performed By: #### L 500.4100, L500.4050, L100.0100 #### [facility] [address] [place], [address] ALK P 70 U/L Normal 45-117 [facility] Comment on above: Order Comment: Order Date: 03/28/24 Order Info: 0184-1 - CBCD Performed By: #### L 500.4100, L500.4050, L100.0100 #### [facility] [address] [place], [address] ALT [Catalytic activity/Vol] 26 U/L Normal 16-61 [facility] Comment on above: Order Comment: Order Date: 03/28/24 Order Info: 0184-1 - CBCD Performed By: #### L 500.4100, L500.4050, L100.0100 #### [facility] [address] [place], [address] AST [Catalytic activity/Vol] 17 U/L Normal 15-37 [facility] Comment on above: Order Comment: Order Date: 03/28/24 Order Info: 0184-1 - CBCD Performed By: #### L 500.4100, L500.4050, L100.0100 #### [facility] [address] [place], [address] Bilirubin [Mass/Vol] 0.60 mg/dL Normal 0.20-1.00 [facility] Comment on above: Order Comment: Order Date: 03/28/24 Order Info: 0184-1 - CBCD Result Comment: For patients on eltrombopag therapy, use of Dimension Triangle TBIL is not recommended. Performed By: #### L 500.4100, L500.4050, L100.0100 #### [facility] [address] [place], [address] BUN/CRE 24.0 RATIO High 10-20 [facility] Comment on above: Order Comment: Order Date: 03/28/24 Order Info: 0184-1 - CBCD Performed By: #### L 500.4100, L500.4050, L100.0100 #### [facility] [address] [place], [address] CA,Total 9.1 mg/dL Normal 8.5-10.1 [facility] Comment on above: Order Comment: Order Date: 03/28/24 Order Info: 0184-1 - CBCD Performed By: #### L 500.4100, L500.4050, L100.0100 #### [facility] [address] [place], [address] Chloride [Moles/Vol] 109 mmol/L High 98-107 [facility] Comment on above: Order Comment: Order Date: 03/28/24 Order Info: 0184-1 - CBCD Performed By: #### L 500.4100, L500.4050, L100.0100 #### [facility] [address] [place], [address] CO2 [Moles/Vol] 26.0 mmol/L Normal 21.0-32.0 [facility] Comment on above: Order Comment: Order Date: 03/28/24 Order Info: 0184-1 - CBCD Performed By: #### L 500.4100, L500.4050, L100.0100 #### [facility] [address] [place], [address] Creatinine [Mass/Vol] 1.04 mg/dL Normal 0.70-1.[address] [facility] Comment on above: Order Comment: Order Date: 03/28/24 Order Info: 0184-1 - CBCD Result Comment: The validity of the calculated GFR GFRAA in patients over 70 years has not been determined. Clinical correlation is essential. Performed By: #### L 500.4100, L500.4050, L100.0100 #### [facility] [address] [place], [address] EST GFR - AA 90 mL/min Normal >60 [facility] Comment on above: Order Comment: Order Date: 03/28/24 Order Info: 0184- - CBCD Result Comment: Afri can Portuguese GFR Calc Performed By: #### L 500.4100, L500.4050, L100.0100 #### [facility] [address] [place], [address] GAP 5 Normal 5-15 [facility] Comment on above: Order Comment: Order Date: 03/28/24 Order Info: 0184- - CBCD Performed By: #### L 500.4100, L500.4050, L100.0100 #### [facility] [address] [place], [address] GFR/1.73 sq M.predicted among non-blacks MDRD (S/P/Bld) [Vol rate/Area] 74 mL/min/{1.73_m2} Normal >60 [facility] Comment on above: Order Comment: Order Date: 03/28/24 Order Info: 0184-1 - CBCD Result Comment: Non- GFR Calc Performed By: #### L 500.4100, L500.4050, L100.0100 #### [facility] [address] [place], [address] Globulin (S) [Mass/Vol] 3.7 g/dL Normal 2.2-4.2 [facility] Comment on above: Order Comment: Order Date: 03/28/24 Order Info: 0184-1 - CBCD Performed By: #### L 500.4100, L500.4050, L100.0100 #### [facility] [address] [place], [address] Glucose [Mass/Vol] 90 mg/dL Normal 74-106 [facility] Comment on above: Order Comment: Order Date: 03/28/24 Order Info: 0184-1 - CBCD Performed By: #### L 500.4100, L500.4050, L100.0100 #### [facility] [address] [place], [address] Potassium [Moles/Vol] 4.1 mmol/L Normal 3.5-5.[address] [facility] Comment on above: Order Comment: Order Date: 03/28/24 Order Info: 0184-1 - CBCD Performed By: #### L 500.4100, L500.4050, L100.0100 #### [facility] [address] [place], [address] Sodium [Moles/Vol] 140 mmol/L Normal 136-145 [facility] Comment on above: Order Comment: Order Date: 03/28/24 Order Info: 0184-1 - CBCD Performed By: #### L 500.4100, L500.4050, L100.0100 #### [facility] [address] [place], [address] T PROT 7.2 g/dL Normal 6.4-8.2 [facility] Comment on above: Order Comment: Order Date: 03/28/24 Order Info: 0184-1 - CBCD Performed By: #### L 500.4100, L500.4050, L100.0100 #### [facility] [address] [place], [address] Urea nitrogen [Mass/Vol] 25 mg/dL High 7-18 [facility] Comment on above: Order Comment: Order Date: 03/28/24 Order Info: 0184-1 - CBCD Performed By: #### L 500.4100, L500.4050, L100.0100 #### [facility] [place], [address] Eosinophil percentageOrdered By: Lawrence Wilson on 01-02-2025 Eosinophils/100 WBC (Bld) 3.7 % 0-5 [facility] Epithelial cells.squamous LM Ql (Urine sed)Ordered By: Lawrence Wilson on 01-02-2025 Epithelial cells.squamous LM.HPF (Urine sed) [#/Area] 0 /[HPF] 0-5 [facility] Erythrocyte distribution wid th ratioOrdered By: Lawrence Wilson on 01-02-2025 Erythrocyte distribution width (RBC) [Ratio] 13.6 % 11.6-14.6 [facility] Erythrocyte distribution wid th standard deviationOrdered By: Lawrence Wilson on 01-02-2025 Erythrocyte distribution width (RBC) [Entitic vol] 45.7 fL High 35.1-43.9 [facility] Erythrocyte distribution width (RBC) [Ratio] 45.7 fl High 35.1-43.9 [facility] Estimated glomerular filtrat ion rate (GFR) AmericanOrdered By: Lawrence Wilson on 01-02-2025 Estimated GFR (MDRD) Amer 90 mL/min >60 [facility] Comment on above: GFR Calc Ferritin measurementOrdered By: Lawrence Wilson on 01-02-2025 Ferritin [Mass/Vol] 55 ng/mL 26-388 [facility] Glomerular filtration rate ( GFR) estimationOrdered By: Lawrence Wilson on 01-02-2025 Estimated GFR (MDRD) Non-Af Amer 74 mL/min >60 [facility] Comment on above: Non- GFR Calc GFR/1.73 sq M.predicted among non-blacks MDRD (S/P/Bld) [Vol rate/Area] 74 mL/min/{1.73_m2} >60 [facility] Comment on above: Non- GFR Calc Glucose Ql (U)Ordered By: Leah Wilson on 01-02-2025 Urine Glucose (UA) Normal mg/dl Normal [facility] Glucose measurementOrdered B y: Lawrence Wilson on 01-02-2025 Glucose [Mass/Vol] 90 mg/dL 74-106 [facility] Hematocrit Auto (Bld) [Volum e fraction]Ordered By: Lawrence Wilson on 01-02-2025 Hematocrit (Bld) [Volume fraction] 39.0 % Low 40-54 [facility] Hemoglobin measurementOrdere d By: Lawrence Wilson on 01-02-2025 Hemoglobin (Bld) [Mass/Vol] 12.5 g/dL Low 13.0-16.5 [facility] High density lipoprotein (HD L) measurementOrdered By: Lawrence Wilson on 01-02-2025 Cholesterol in HDL [Mass/Vol] 53 mg/dL >40 [facility] Comment on above: The drugs N-Acetylcy steine and Metamizole may falsely depress this assay. Reference Range HDL <40 mg/dL Low HDL Cholesterol HDL >or= 60 mg/dL High HDL Cholesterol Immature granulocytes/100 WB C Auto (Bld)Ordered By: Lawrence Wilson on 01-02-2025 Immature granulocytes/100 WBC (Bld) 0.200 % 0.0-0.9 [facility] Comment on above: IG% - Immature Granu locytes (promyelocytes, myelocytes and metamyelocytes) > 1% indicates that a LEFT SHIFT is Present. Iron (Unsp spec) [Mass/Mass] Ordered By: Lawrence Wilson on 01-02-2025 Iron [Mass/Vol] 70 ug/dL 65-175 [facility] Iron measurement (mass/mass) Ordered By: Lawrence Wilson on 01-02-2025 Iron (Unsp spec) [Mass/Mass] 70 ug/dL 65-175 [facility] Iron saturation [Mass fracti on]Ordered By: Lawrence Wilson on 01-02-2025 Iron Saturation 22.2 % 15.0-55.0 [facility] Ketones Test strip Ql (U)Ord ered By: Lawrence Wilson on 01-02-2025 Ketones Ql (U) Negative Negative [facility] - Chemistry and C hemistry - challengeOrdered By: Lawrence Wilson on 01-02-2025 AST [Catalytic activity/Vol] 17 U/L 15-37 [facility] Lipid Profileon 01-02-2025 Cholesterol [Mass/Vol] 150 mg/dL Normal 200 [facility] Comment on above: Order Comment: Order Date: 03/28/24 Order Info: 0184-1 - CBCD Result Comment: <200 mg/dL Desirable 200-240 mg/dL Borderline >240 mg/dL High Risk Performed By: #### L 500.4100, L500.4050, L100.0100 #### [facility] [address] [place], [address] Cholesterol in HDL [Mass/Vol] 53 mg/dL Normal [facility] Comment on above: Order Comment: Order Date: 03/28/24 Order Info: 0184- - CBCD Result Comment: The drugs N-Acetylcysteine and Metamizole may falsely depress this assay. Reference Range HDL <40 mg/dL Low HDL Cholesterol HDL >or= 60 mg/dL High HDL Cholesterol Performed By: #### L 500.4100, L500.4050, L100.0100 #### [facility] [address] [place], [address] Cholesterol in LDL [Mass/Vol] 74 mg/dL Normal 0-130 [facility] Comment on above: Order Comment: Order Date: 03/28/24 Order Info: 0184-1 - CBCD Performed By: #### L 500.4100, L500.4050, L100.0100 #### [facility] [address] [place], [address] Cholesterol in VLDL [Mass/Vol] 23 mg/dL Normal 5-40 [facility] Comment on above: Order Comment: Order Date: 03/28/24 Order Info: 0184-1 - CBCD Performed By: #### L 500.4100, L500.4050, L100.0100 #### [facility] [address] [place], [address] Triglyceride [Mass/Vol] 114 mg/dL Normal [facility] Comment on above: Order Comment: Order Date: 03/28/24 Order Info: 0184-1 - CBCD Result Comment: The drugs N-Acetylcysteine and Metamizole may falsely depress this assay. Serum Triglycerides Reference Interval Normal <150 mg/dL Borderline high 150 - 199 mg/dL High 200 - 499 mg/dL Very High > or = 500 mg/dL Performed By: #### L 500.4100, L500.4050, L100.0100 #### [facility] [address] [place], [place], [address] Low density lipoprotein (LDL ) cholesterol measurementOrdered By: Lawrence Wilson on 01-02-2025 Cholesterol in LDL [Mass/Vol] 74 mg/dL 0-130 [facility] Lymphocytes Auto (Unsp spec) [#/Vol]Ordered By: Lawrence Wilson on 01-02-2025 Lymphocytes (Bld) [#/Vol] 1.04 10*3/uL 0.83-4.51 [facility] Lymphocytes/100 WBC Auto (Un sp spec)Ordered By: Lawrence Wilson on 01-02-2025 Lymphocytes/100 WBC (Bld) 22.4 % 19-41 [facility] MCV (mean corpuscular volume ) determinationOrdered By: Lawrence Wilson on 01-02-2025 MCV (RBC) [Entitic vol] 91.5 fL 80-94 [facility] Magnesiumon 01-02-2025 Magnesium [Mass/Vol] 2.2 mg/dL Normal 1.6-2.6 [facility] Comment on above: Order Comment: Order Date: 03/28/24 Order Info: 0184-1 - CBCD Performed By: #### L 500.4100, L500.4050, L100.0100 #### [facility] [address] [place], [place], [id number] Magnesium measurementOrdered By: Lawrence Wilson on 01-02-2025 Magnesium [Mass/Vol] 2.2 mg/dL 1.6-2.6 [facility] Mean corpuscular hemoglobin (MCH) determinationOrdered By: Lawrence Wilson on 01-02-2025 MCH (RBC) [Entitic mass] 29.3 pg 27.0-32.0 [facility] Mean corpuscular hemoglobin concentration (MCHC) determinationOrdered By: Lawrence Wilson on 01-02-2025 MCHC (RBC) [Mass/Vol] 32.1 g/dL 32-[address] [facility] Mean platelet volume determi nationOrdered By: Lawrence Wilson on 01-02-2025 Platelet mean volume (Bld) [Entitic vol] 11.2 fL 6.2-12.0 [facility] Microscopic analysis of urin e for red blood cells (RBC)Ordered By: Lawrence Wilson on 01-02-2025 Microscopic analysis of urine for red blood cells (RBC) 0 SEEN /hpf 0-5 [facility] Urine RBC 0 SEEN /hpf 0-5 [facility] Monocyte percentageOrdered B y: Lawrence Wilson on 01-02-2025 Monocytes/100 WBC (Bld) 12.1 % High 0-10 [facility] Mucus LM Ql (Urine sed)Order ed By: Lawrence Wilson on 01-02-2025 Mucus Ql (Urine sed) 1+ /hpf [facility] Neutrophil percentageOrdered By: Lawrence Wilson on 01-02-2025 Neutrophils/100 WBC (Bld) 60.7 % 47-70 [facility] Nitrite Test strip Ql (U)Ord ered By: Lawrence Wilson on 01-02-2025 Nitrite Ql (U) Negative Negative [facility] Nucleated red blood cell per centageOrdered By: Lawrence Wilson on 01-02-2025 Nucleated RBC/100 WBC (Bld) [Ratio] 0 % 0-5 [facility] Platelet countOrdered By: Leah Wilson on 01-02-2025 Platelets (Bld) [#/Vol] 202 10*3/uL 150-450 [facility] Potassium measurementOrdered By: Lawrence Wilson on 01-02-2025 Potassium [Moles/Vol] 4.1 mmol/L 3.5-5.[address] [facility] Protein Test strip Ql (U)Ord ered By: Lawrence Wilson on 01-02-2025 Protein Ql (U) Negative Negative [facility] RBC Auto (Bld) [#/Vol]Ordere d By: Lawrence Wilson on 01-02-2025 RBC (Bld) [#/Vol] 4.26 10*6/uL Low 4.6-6.2 [facility] Serum anion gap measurementO rdered By: Lawrence Wilson on 01-02-2025 Anion gap [Moles/Vol] 5 mmol/L 5-[address] [facility] Serum globulin measurementOr dered By: Lawrence Wilson on 01-02-2025 Globulin (S) [Mass/Vol] 3.7 g/dL 2.2-4.2 [facility] Serum or plasma alanine simmons otransferase (ALT) measurementOrdered By: Lawrence Wilson on 01-02-2025 ALT [Catalytic activity/Vol] 26 U/L 16-61 [facility] Serum or plasma albumin ash urement (mass/volume)Ordered By: Lawrence Wilson on 01-02-2025 Albumin [Mass/Vol] 3.5 g/dL 3.2-5.0 [facility] Serum or plasma alkaline alexandra sphatase measurementOrdered By: Lawrence Wilson on 01-02-2025 ALP [Catalytic activity/Vol] 70 U/L 45-117 [facility] Serum or plasma calcium ash urement (mass/volume)Ordered By: Lawrence Wilson on 01-02-2025 Calcium [Mass/Vol] 9.1 mg/dL 8.5-10.1 [facility] Serum or plasma cholesterol measurement (mass/volume)Ordered By: Lawrence Wilson on 01-02-2025 Cholesterol [Mass/Vol] 150 mg/dL <200 [facility] Comment on above: <200 mg/dL Desirable 200-240 mg/dL Borderline >240 mg/dL High Risk Serum or plasma creatinine m easurement (mass/volume)Ordered By: Lawrence Wilson on 01-02-2025 Creatinine [Mass/Vol] 1.04 mg/dL 0.70-1.[address] [facility] Comment on above: The validity of the calculated GFR & GFRAA in patients over 70 years has not been determined. Clinical correlation is essential. Serum or plasma iron saturat ion measurement (mass fraction)Ordered By: Lawrence Wilson on 01-02-2025 Iron saturation [Mass fraction] 22.2 % 15.0-55.0 [facility] Serum or plasma thyroid stim ulating hormone (TSH) measurement (units/volume)Ordered By: Lawrence Wilson on 01-02-2025 TSH Qn 2.820 uIU/mL 0.358-3.740 [facility] Serum or plasma urea nitroge n measurement (mass/volume)Ordered By: Lawrence Wilson on 01-02-2025 Urea nitrogen [Mass/Vol] 25 mg/dL High 7-18 [facility] Sodium levelOrdered By: Lawrence Wilson on 01-02-2025 Sodium [Moles/Vol] 140 mmol/L 136-145 [facility] Squamous epithelial cells de tection in urine sediment by light microscopyOrdered By: Lawrence Wilson on 01-02-2025 Epithelial cells.squamous LM Ql (Urine sed) 0-5 SEEN /hpf 0-5 [facility] TIBCOrdered By: Lawrence vazquez on 01-02-2025 Total Iron Binding Capacity 315 ug/dL 250-450 [facility] TSH QnOrdered By: Lawrence soares on 01-02-2025 Thyroid Stimulating Hormone (TSH) 2.820 uIU/mL 0.358-3.740 [facility] Thyroid Stim Hormone (TSH)on 01-02-2025 TSH 2.820 uIU/mL Normal 0.358-3.740 [facility] Comment on above: Order Comment: Order Date: 03/28/24 Order Info: [id number] - CBCD Performed By: #### L 500.4100, L500.4050, L100.0100 #### [facility] Laboratory [facility] [address] [place], [place], [address] Total proteinOrdered By: Gerhard Wilson on 01-02-2025 Protein [Mass/Vol] 7.2 g/dL 6.4-8.2 [facility] Triglycerides measurementOrd ered By: Lawrence Wilson on 01-02-2025 Triglyceride [Mass/Vol] 114 mg/dL <199 [facility] Comment on above: The drugs N-Acetylcy steine and Metamizole may falsely depress this assay.Serum Triglycerides Reference Interval Normal <150 mg/dL Borderline high 150 - 199 mg/dL High 200 - 499 mg/dL Very High > or = 500 mg/dL Urinalysis, Completeon 01-02 BACTERIA 1+ /hpf Normal None Seen [facility] Comment on above: Order Comment: CLEAN CATCH Performed By: #### L 503.0105, L503.6030, L400.0001, L503.6550 ####[facility] [address] [place], [address] EPI,SQUAMOUS 0-5 SEEN Normal 0-5 [facility] Comment on above: Order Comment: CLEAN CATCH Performed By: #### L 503.0105, L503.6030, L400.0001, L503.6550 ####[facility] [address] [place], [address] Mucus Ql (Urine sed) 1+ /hpf Normal [facility] Comment on above: Order Comment: CLEAN CATCH Performed By: #### L 503.0105, L503.6030, L400.0001, L503.6550 ####[facility] [address] [place], [address] RBC 0 SEEN Normal 0-5 [facility] Comment on above: Order Comment: CLEAN CATCH Performed By: #### L 503.0105, L503.6030, L400.0001, L503.6550 ####[facility] [address] [place], [address] WBC 0-5 SEEN Normal 0-5 [facility] Comment on above: Order Comment: CLEAN CATCH Performed By: #### L 503.0105, L503.6030, L400.0001, L503.6550 ####[facility] [address] [place], [address] Urine blood detectionOrdered By: Lawrence Wilson on 01-02-2025 Urine Occult Blood Negative Negative [facility] Urine clarityOrdered By: Gerhard Wilson on 01-02-2025 Clarity (U) Clear Clear [facility] Urine color determinationOrd ered By: Lawrence Wilson on 01-02-2025 Color (U) Yellow Yellow [facility] Urine glucose detectionOrder ed By: Lawrence Wilson on 01-02-2025 Glucose Ql (U) Normal mg/dl Normal [facility] Urine leukocyte esterase det ection by dipstickOrdered By: Lawrence Wilson on 01-02-2025 Leukocyte esterase Test strip Ql (U) Negative Negative [facility] Urine pHOrdered By: Lawrence galvin on 01-02-2025 pH (U) 6.0 [pH] 5.0 - 8.0 [facility] Urine sediment bacteria coun t by microscopy (number/high power field)Ordered By: Lawrence Wilson on 01-02-2025 Bacteria LM.HPF (Urine sed) [#/Area] 1 /[HPF] None Seen [facility] Urine specific gravity measu rementOrdered By: Lawrence Wilson on 01-02-2025 Specific gravity (U) [Rel density] 1.020 1.002-1.030 [facility] Urine urobilinogen measureme ntOrdered By: Lawrence Wilson on 01-02-2025 Urobilinogen Ql (U) Normal mg/dl Normal [facility] Urobilinogen Ql (U)Ordered B y: Lawrence Wilson on 01-02-2025 Urine Urobilinogen Normal mg/dl Normal [facility] Very low density lipoprotein (VLDL) cholesterol measurementOrdered By: Lawrence Wilson on 01-02-2025 Very low density lipoprotein (VLDL) cholesterol measurement 23 mg/dL 5-40 [facility] VLDL Cholesterol 23 mg/dL 5-40 [facility] Vitamin B12 measurementOrder ed By: Lawrence Wilson on 01-02-2025 Cobalamin (Vitamin B12) [Mass/Vol] 495 pg/mL 211-911 [facility] White blood cell (WBC) count Ordered By: Lawrence Wilson on 01-02-2025 WBC (Bld) [#/Vol] 4.6 10*3/uL 4.4-11.0 [facility] White blood cell countOrdere d By: Lawrence Wilson on 01-02-2025 Urine WBC 0-5 SEEN /hpf 0-5 [facility] White blood cell count 0-5 SEEN /hpf 0-5 [facility] Radiation Oncology Visiton 1 4 Radiation Oncology Visit [facility] [address] [place] [address] OFFICE VISIT Date of Service: 09/28/24824 MR#: [id number] Acct: [id number] Name: ABRAHAN CALVERT Rep #: [id number] : 1950 From: Tucker Perry DO Age/Sex: 73/M [place] [facility] [place] Status: Signed Intake Vital Signs 03/30/24 08:25 09/28/24 08:27 Height 6 ft 3 in 6 ft 3 in Weight: 204 lb 201 lb 2 oz BMI 25.4 25.1 BP 153/78 H 153/77 H Blood Pressure Location Rt brachial Rt brachial Position Sitting Sitting Respiration 18 18 Pulse 51 L 53 L Pulse Source Monitor Monitor Temp 97.0 F L 97.0 F L Temperature Source Temporal Artery Temporal Artery Pulse Oximetry (%) 97 98 Oxygen Delivery Method room air room air Intake Visit Reasons: 6 MONTH F/U PROSTATE Is patient in pain?: No Allergies atorvastatin Adverse Reaction (Severe, Verified 09/28/24 08:29) myalgias pitavastatin (From Livalo) Adverse Reaction (Severe, Verified 09/28/24 08:29) Myalgias rosuvastatin Adverse Reaction (Severe, Verified 09/28/24 08:29) Myalgias Medications ???Medication ???Instructions ???Recorded ???Confirmed ???Type aspirin 81 mg tablet,delayed 81 mg PO DAILY 04/28/21 09/28/24 History release (Adult Aspirin Regimen) ezetimibe 10 mg tablet (Zetia) 10 mg PO DAILY 04/28/21 09/28/24 History meloxicam 15 mg tablet (Mobic) 15 mg PO DAILY 04/28/21 09/28/24 History multivitamin with minerals-folic 1 tab PO DAILY 04/28/21 09/28/24 History acid 0.4 mg tablet (Adult One Daily Multivitamin) tamsulosin 0.4 mg capsule (Flomax) 0.4 mg PO QHS 04/28/21 09/28/24 History tadalafil 5 mg tablet (Cialis) 5 mg PO DAILY PRN sexual activity 03/04/22 09/28/24 History Have you fallen in the past year?: No PFSH PFSH Medical History Presence of stent in coronary artery ( 08/11/21) Atherosclerotic heart disease of [place] coronary artery without angina pectoris Bilateral carotid artery disease History of prostate cancer Sinus bradycardia Mixed hyperlipidemia Home Medications ???Medication ???Instructions ???Recorded ???Last Taken ???Type aspirin 81 mg tablet,delayed 81 mg PO DAILY 04/28/21 08/11/21 History release (Adult Aspirin Regimen) ezetimibe 10 mg tablet (Zetia) 10 mg PO DAILY 04/28/21 Unknown History meloxicam 15 mg tablet (Mobic) 15 mg PO DAILY 04/28/21 Unknown History multivitamin with minerals-folic 1 tab PO DAILY 04/28/21 Unknown History acid 0.4 mg tablet (Adult One Daily Multivitamin) tamsulosin 0.4 mg capsule (Flomax) 0.4 mg PO QHS 04/28/21 Unknown History tadalafil 5 mg tablet (Cialis) 5 mg PO DAILY PRN sexual activity 03/04/22 Unknown History Allergy/AdvReac Type Severity Reaction Status Date / Time atorvastatin AdvReac Severe myalgias Verified 09/28/24 08:29 pitavastatin (From Livalo) AdvReac Severe Myalgias Verified 09/28/24 08:29 rosuvastatin AdvReac Severe Myalgias Verified 09/28/24 08:29 Surgical History Presence of coronary angioplasty implant and graft ( 08/11/21) History of tonsillectomy History of appendectomy History of left inguinal hernia repair Social History Smoking Status: Never smoker alcohol intake: current details: occasional substance use type: does not use caffeine: Yes Type: tea Diagnosis: Abrahan Calvert is a 73-year-old male diagnosed with 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 History of Present Illness: 07/01/2017: TRUS guided prostate biopsy was performed.??? This demonstrated [place] 3+3 adenocarcinoma involving about 1% of 1/2 cores in the right prostate mid, and Lizbeth score 3+4 adenocarcinoma involving about 5% of 1/2 cores in the right prostate base.??? Remaining 10 biopsy cores were negative for prostate cancer. 07/14/2017: Bone scan was performed.??? This demonstrated no evidence of metastatic disease. 07/19/2017: CT abdomen/pelvis with contrast was performed.??? This demonstrated enlarged prostate consistent with known history of malignancy.??? No definite evidence of malignant adenopathy.??? There is a solid nodule within the left lobe of the liver most likely hemangioma. 09/19/2017 -11/24/2017: Completed radiation therapy to the prostate consisting of 7920 cGy in 44 fractions.??? He was not treated with ADT. Radiation Treatment History: 1) 09/19/2017 -11/24/2017: Completed radiation therapy to the prostate consisting of 7920 cGy in 44 fractions.??? He was not treated with ADT. Interval Hist (more content not included)... Normal [facility] CBC W/Diff, Automatedon 09-14 Absolute Lymph 1.25 X10 3/uL Normal 0.83-4.51 [facility] Comment on above: Order Comment: Order Date: 03/28/24 Order Info: [id number] - CBCD Performed By: #### L 500.4100, L500.4050, L100.0100 #### [facility] [address] [place], [address] Absolute Neut 3.0 X10 3/uL Normal 2.0-7.7 [facility] Comment on above: Order Comment: Order Date: 03/28/24 Order Info: [id number] - CBCD Performed By: #### L 500.4100, L500.4050, L100.0100 #### [facility] [address] [place], [address] Basophils/100 WBC (Bld) 1.0 % Normal 0-1 [facility] Comment on above: Order Comment: Order Date: 03/28/24 Order Info: [id number] - CBCD Performed By: #### L 500.4100, L500.4050, L100.0100 #### [facility] [address] [place], [address] Eosinophils/100 WBC (Bld) 4.1 % Normal 0-5 [facility] Comment on above: Order Comment: Order Date: 03/28/24 Order Info: [id number] - CBCD Performed By: #### L 500.4100, L500.4050, L100.0100 #### [facility] [address] [place], [address] Erythrocyte distribution width (RBC) [Ratio] 13.8 % Normal 11.6-14.6 [facility] Comment on above: Order Comment: Order Date: 03/28/24 Order Info: 018- - CBCD Performed By: #### L 500.4100, L500.4050, L100.0100 #### [facility] [address] [place], [address] Hematocrit (Bld) [Volume fraction] 40.4 % Normal 40-54 [facility] Comment on above: Order Comment: Order Date: 03/28/24 Order Info: [id number] - CBCD Performed By: #### L 500.4100, L500.4050, L100.0100 #### [facility] [address] [place], [address] Hemoglobin (Bld) [Mass/Vol] 13.4 g/dL Normal 13.0-16.5 [facility] Comment on above: Order Comment: Order Date: 03/28/24 Order Info: [id number] - CBCD Performed By: #### L 500.4100, L500.4050, L100.0100 #### [facility] [address] [place], [address] IG% 0.200 Normal 0.0-0.9 [facility] Comment on above: Order Comment: Order Date: 03/28/24 Order Info: [id number]- - CBCD Result Comment: IG% - Immature Granulocytes (promyelocytes, myelocytes and metamyelocytes) > 1% indicates that a LEFT SHIFT is Present. Performed By: #### L 500.4100, L500.4050, L100.0100 #### [facility] [address] [place], [address] Lymphocytes/100 WBC (Bld) 24.4 % Normal 19-41 [facility] Comment on above: Order Comment: Order Date: 03/28/24 Order Info: [id number]- - CBCD Performed By: #### L 500.4100, L500.4050, L100.0100 #### [facility] [address] [place], [address] MCH (RBC) [Entitic mass] 30.2 pg Normal 27.0-32.0 [facility] Comment on above: Order Comment: Order Date: 03/28/24 Order Info: [id number]- - CBCD Performed By: #### L 500.4100, L500.4050, L100.0100 #### [facility] [address] [place], [address] MCHC (RBC) [Mass/Vol] 33.2 g/dL Normal 32-[address] [facility] Comment on above: Order Comment: Order Date: 03/28/24 Order Info: [id number]- - CBCD Performed By: #### L 500.4100, L500.4050, L100.0100 #### [facility] [address] [place], [address] MCV (RBC) [Entitic vol] 91.0 fL Normal 80-94 [facility] Comment on above: Order Comment: Order Date: 03/28/24 Order Info: [id number] - CBCD Performed By: #### L 500.4100, L500.4050, L100.0100 #### [facility] [address] [place], [address] Monocytes/100 WBC (Bld) 12.3 % High 0-10 [facility] Comment on above: Order Comment: Order Date: 03/28/24 Order Info: [id number] - CBCD Performed By: #### L 500.4100, L500.4050, L100.0100 #### [facility] [address] [place], [address] Neutrophils/100 WBC (Bld) 58.0 % Normal 47-70 [facility] Comment on above: Order Comment: Order Date: 03/28/24 Order Info: [id number] - CBCD Performed By: #### L 500.4100, L500.4050, L100.0100 #### [facility] [address] [place], [address] Nucleated RBC (Bld) [#/Vol] 0 10*3/uL Normal 0-5 [facility] Comment on above: Order Comment: Order Date: 03/28/24 Order Info: [id number] - CBCD Performed By: #### L 500.4100, L500.4050, L100.0100 #### [facility] [address] [place], [address] Platelet mean volume (Bld) [Entitic vol] 10.6 fL Normal 6.2-12.0 [facility] Comment on above: Order Comment: Order Date: 03/28/24 Order Info: [id number] - CBCD Performed By: #### L 500.4100, L500.4050, L100.0100 #### [facility] [address] [place], [address] Platelets (Bld) [#/Vol] 236 10*3/uL Normal 150-450 [facility] Comment on above: Order Comment: Order Date: 03/28/24 Order Info: [id number] - CBCD Performed By: #### L 500.4100, L500.4050, L100.0100 #### [facility] [address] [place], [address] RBC (Bld) [#/Vol] 4.44 10*6/uL Low 4.6-6.2 [facility] Comment on above: Order Comment: Order Date: 03/28/24 Order Info: [id number] - CBCD Performed By: #### L 500.4100, L500.4050, L100.0100 #### [facility] [address] [place], [address] RDW SD 46.2 fl High 35.1-43.9 [facility] Comment on above: Order Comment: Order Date: 03/28/24 Order Info: [id number]- - CBCD Performed By: #### L 500.4100, L500.4050, L100.0100 #### [facility] [address] [place], [address] WBC (Bld) [#/Vol] 5.1 10*3/uL Normal 4.4-11.0 [facility] Comment on above: Order Comment: Order Date: 03/28/24 Order Info: [id number]- - CBCD Performed By: #### L 500.4100, L500.4050, L100.0100 #### [facility] [address] [place], [address] Comprehensive Metabolic Prof [facility] 09-24-2024 Albumin [Mass/Vol] 3.8 g/dL Normal 3.2-5.0 [facility] Comment on above: Order Comment: Order Date: 03/28/24 Order Info: [id number] - CMP Order Info: [id number] - LIPID Performed By: #### L 500.4100, L500.4050, L100.0100 #### [facility] [address] [place], [address] Albumin/Globulin [Mass ratio] 1.1 {ratio} Normal 0.9-2.4 [facility] Comment on above: Order Comment: Order Date: 03/28/24 Order Info: [id number] - CMP Order Info: [id number] - LIPID Performed By: #### L 500.4100, L500.4050, L100.0100 #### [facility] [address] [place], [address] ALK P 75 U/L Normal 45-117 [facility] Comment on above: Order Comment: Order Date: 03/28/24 Order Info: [id number]- - CMP Order Info: [id number] - LIPID Performed By: #### L 500.4100, L500.4050, L100.0100 #### [facility] [address] [place], [address] ALT [Catalytic activity/Vol] 27 U/L Normal 16-61 [facility] Comment on above: Order Comment: Order Date: 03/28/24 Order Info: [id number]- - CMP Order Info: [id number] - LIPID Performed By: #### L 500.4100, L500.4050, L100.0100 #### [facility] [address] [place], [address] AST [Catalytic activity/Vol] 15 U/L Normal 15-37 [facility] Comment on above: Order Comment: Order Date: 03/28/24 Order Info: [id number] - CMP Order Info: [id number] - LIPID Performed By: #### L 500.4100, L500.4050, L100.0100 #### [facility] [address] [place], [address] Bilirubin [Mass/Vol] 0.50 mg/dL Normal 0.20-1.00 [facility] Comment on above: Order Comment: Order Date: 03/28/24 Order Info: [id number] - CMP Order Info: [id number] - LIPID Result Comment: For patients on eltrombopag therapy, use of [place] TBIL is not recommended. Performed By: #### L 500.4100, L500.4050, L100.0100 #### [facility] [address] [place], [address] BUN/CRE 24.0 RATIO High 10-20 [facility] Comment on above: Order Comment: Order Date: 03/28/24 Order Info: [id number] - CMP Order Info: [id number] - LIPID Performed By: #### L 500.4100, L500.4050, L100.0100 #### [facility] [address] [place], [address] CA,Total 8.9 mg/dL Normal 8.5-10.1 [facility] Comment on above: Order Comment: Order Date: 03/28/24 Order Info: [id number]- - CMP Order Info: [id number] - LIPID Performed By: #### L 500.4100, L500.4050, L100.0100 #### [facility] [address] [place], [address] Chloride [Moles/Vol] 109 mmol/L High 98-107 [facility] Comment on above: Order Comment: Order Date: 03/28/24 Order Info: [id number] - CMP Order Info: [id number] - LIPID Performed By: #### L 500.4100, L500.4050, L100.0100 #### [facility] [address] [place], [address] CO2 [Moles/Vol] 25.0 mmol/L Normal 21.0-32.0 [facility] Comment on above: Order Comment: Order Date: 03/28/24 Order Info: [id number] - CMP Order Info: [id number] - LIPID Performed By: #### L 500.4100, L500.4050, L100.0100 #### [facility] [address] [place], [address] Creatinine [Mass/Vol] 1.04 mg/dL Normal 0.70-1.[address] [facility] Comment on above: Order Comment: Order Date: 03/28/24 Order Info: [id number] - CMP Order Info: [id number] - LIPID Result Comment: The validity of the calculated GFR GFRAA in patients over 70 years has not been determined. Clinical correlation is essential. Performed By: #### L 500.4100, L500.4050, L100.0100 #### [facility] [address] [place], [address] EST GFR - AA 90 mL/min Normal >60 [facility] Comment on above: Order Comment: Order Date: 03/28/24 Order Info: [id number] - CMP Order Info: [id number] - LIPID Result Comment: Afri can Portuguese GFR Calc Performed By: #### L 500.4100, L500.4050, L100.0100 #### [facility] [address] [place], [address] GAP 6 Normal 5-15 [facility] Comment on above: Order Comment: Order Date: 03/28/24 Order Info: [id number] - CMP Order Info: [id number] - LIPID Performed By: #### L 500.4100, L500.4050, L100.0100 #### [facility] [address] [place], [address] GFR/1.73 sq M.predicted among non-blacks MDRD (S/P/Bld) [Vol rate/Area] 74 mL/min/{1.73_m2} Normal >60 [facility] Comment on above: Order Comment: Order Date: 03/28/24 Order Info: [id number] - CMP Order Info: [id number] - LIPID Result Comment: Non- GFR Calc Performed By: #### L 500.4100, L500.4050, L100.0100 #### [facility] [address] [place], [address] Globulin (S) [Mass/Vol] 3.4 g/dL Normal 2.2-4.2 [facility] Comment on above: Order Comment: Order Date: 03/28/24 Order Info: [id number] - CMP Order Info: [id number] - LIPID Performed By: #### L 500.4100, L500.4050, L100.0100 #### [facility] [address] [place], [address] Glucose [Mass/Vol] 93 mg/dL Normal 74-106 [facility] Comment on above: Order Comment: Order Date: 03/28/24 Order Info: [id number] - CMP Order Info: [id number] - LIPID Performed By: #### L 500.4100, L500.4050, L100.0100 #### [facility] [address] [place], [address] Potassium [Moles/Vol] 4.2 mmol/L Normal 3.5-5.[address] [facility] Comment on above: Order Comment: Order Date: 03/28/24 Order Info: [id number] - CMP Order Info: [id number] - LIPID Performed By: #### L 500.4100, L500.4050, L100.0100 #### [facility] [address] [place], [address] Sodium [Moles/Vol] 140 mmol/L Normal 136-145 [facility] Comment on above: Order Comment: Order Date: 03/28/24 Order Info: [id number] - CMP Order Info: [id number] - LIPID Performed By: #### L 500.4100, L500.4050, L100.0100 #### [facility] [address] [place], [address] T PROT 7.2 g/dL Normal 6.4-8.2 [facility] Comment on above: Order Comment: Order Date: 03/28/24 Order Info: [id number] - CMP Order Info: [id number] - LIPID Performed By: #### L 500.4100, L500.4050, L100.0100 #### [facility] [address] [place], [address] Urea nitrogen [Mass/Vol] 25 mg/dL High 7-18 [facility] Comment on above: Order Comment: Order Date: 03/28/24 Order Info: [id number] - CMP Order Info: [id number] - LIPID Performed By: #### L 500.4100, L500.4050, L100.0100 #### [facility] [address] [place], [address] Lipid Profileon 09-24-2024 Cholesterol [Mass/Vol] 175 mg/dL Normal 200 [facility] Comment on above: Order Comment: Order Date: 03/28/24 Order Info: 07 - CMP Order Info: [id number] - LIPID Result Comment: <200 mg/dL Desirable 200-240 mg/dL Borderline >240 mg/dL High Risk Performed By: #### L 500.4100, L500.4050, L100.0100 #### [facility] [address] [place], [address] Cholesterol in HDL [Mass/Vol] 60 mg/dL Normal [facility] Comment on above: Order Comment: Order Date: 03/28/24 Order Info: [id number] - CMP Order Info: [id number] - LIPID Result Comment: The drugs N-Acetylcysteine and Metamizole may falsely depress this assay. Reference Range HDL <40 mg/dL Low HDL Cholesterol HDL >or= 60 mg/dL High HDL Cholesterol Performed By: #### L 500.4100, L500.4050, L100.0100 #### [facility] [address] [place], [address] Cholesterol in LDL [Mass/Vol] 96 mg/dL Normal 0-130 [facility] Comment on above: Order Comment: Order Date: 03/28/24 Order Info: [id number] - CMP Order Info: [id number] - LIPID Performed By: #### L 500.4100, L500.4050, L100.0100 #### [facility] [address] [place], [address] Cholesterol in VLDL [Mass/Vol] 19 mg/dL Normal 5-40 [facility] Comment on above: Order Comment: Order Date: 03/28/24 Order Info: [id number] - CMP Order Info: [id number] - LIPID Performed By: #### L 500.4100, L500.4050, L100.0100 #### [facility] [address] [place], [address] Triglyceride [Mass/Vol] 95 mg/dL Normal [facility] Comment on above: Order Comment: Order Date: 03/28/24 Order Info: [id number] - CMP Order Info: [id number] - LIPID Result Comment: The drugs N-Acetylcysteine and Metamizole may falsely depress this assay. Serum Triglycerides Reference Interval Normal <150 mg/dL Borderline high 150 - 199 mg/dL High 200 - 499 mg/dL Very High > or = 500 mg/dL Performed By: #### L 500.4100, L500.4050, L100.0100 #### [facility] [address] [place], [address] PSA,Total- [employer] 09-14 PSA, DIAGNOSTIC 0.85 ng/mL Normal 0.0-4.0 [facility] Comment on above: Result Comment: This test was performed using the TPSA assay method for the [employer] chemistry system. Values obtained with different assay methods cannot be used interchangably. When changing PSA assays in the course of monitoring a patient, additional sequential testing should be carried out to confirm baseline values. Performed By: #### L 501.9940 ####[facility] [address] [place], [address] Absolute lymphocyte countOrd ered By: Lawrence Wilson on 01-12-2024 Lymphocytes Auto (Unsp spec) [#/Vol] 1.33 10*3/uL 0.83-4.51 [facility] Automated lymphocyte count a s percentage of total leukocytesOrdered By: Lawrence Mathewsfany on 01-12-2024 Lymphocytes/100 WBC Auto (Unsp spec) 29.6 % 19-41 [facility] Basophil percentageOrdered B y: Lawrence Mathewsfany on 01-12-2024 Basophils/100 WBC (Bld) 1.1 % 0-1 [facility] Bilirubin [Mass/Vol] 0.60 mg/dL 0.20-1.00 [facility] Comment on above: For patients on eltr ombopag therapy, use of [employer] TBIL is not recommended. Chloride [Moles/Vol] 108 mmol/L 98-107 [facility] Cholesterol [Mass/Vol] 231 mg/dL <200 [facility] Comment on above: <200 mg/dL Desirable 200-240 mg/dL Borderline >240 mg/dL High Risk Eosinophils/100 WBC (Bld) 4.9 % 0-5 [facility] Glucose [Mass/Vol] 97 mg/dL 74-106 [facility] Hemoglobin (Bld) [Mass/Vol] 14.0 g/dL 13.0-16.5 [facility] Monocytes/100 WBC (Bld) 11.6 % 0-10 [facility] Neutrophils (Bld) [#/Vol] 2.4 10*3/uL 2.0-7.7 [facility] Neutrophils/100 WBC (Bld) 52.6 % 47-70 [facility] Potassium [Moles/Vol] 4.2 mmol/L 3.5-5.[address] [facility] Protein [Mass/Vol] 7.7 g/dL 6.4-8.2 [facility] Sodium [Moles/Vol] 139 mmol/L 136-145 [facility] Triglyceride [Mass/Vol] 84 mg/dL <199 [facility] Comment on above: The drugs N-Acetylcy steine and Metamizole may falsely depress this assay.Serum Triglycerides Reference Interval Normal <150 mg/dL Borderline high 150 - 199 mg/dL High 200 - 499 mg/dL Very High > or = 500 mg/dL WBC (Bld) [#/Vol] 4.5 10*3/uL 4.4-11.0 [facility] Determination of erythrocyte mean corpuscular volume (MCV)Ordered By: Lawrence Wilson on 01-12-2024 MCV (RBC) [Entitic vol] 91.8 fL 80-94 [facility] Erythrocyte distribution wid th ratioOrdered By: Lawrence Wilson on 01-12-2024 Erythrocyte distribution width (RBC) [Ratio] 13.8 % 11.6-14.6 [facility] Erythrocyte distribution wid th standard deviationOrdered By: Lawrence Wilson on 01-12-2024 Erythrocyte distribution width (RBC) [Entitic vol] 46.8 fL 35.1-43.9 [facility] Hematocrit Auto (Bld) [Volum e fraction]Ordered By: Lawrence Wilson on 01-12-2024 Hematocrit (Bld) [Volume fraction] 41.5 % 40-54 [facility] Immature granulocytes/100 WB C Auto (Bld)Ordered By: aLwrence Wilson on 01-12-2024 Immature granulocytes/100 WBC (Bld) 0.200 % 0.0-0.9 [facility] Comment on above: IG% - Immature Granu locytes (promyelocytes, myelocytes and metamyelocytes) > 1% indicates that a LEFT SHIFT is Present. Laboratory - Chemistry and C hemistry - challengeOrdered By: Lawrence Wilson on 01-12-2024 Albumin/Globulin [Mass ratio] 1.1 {ratio} 0.9-2.4 [facility] ALP [Catalytic activity/Vol] 81 U/L 45-117 [facility] ALT [Catalytic activity/Vol] 31 U/L 16-61 [facility] Cholesterol in HDL [Mass/Vol] 60 mg/dL >40 [facility] Comment on above: The drugs N-Acetylcy steine and Metamizole may falsely depress this assay. Reference Range HDL <40 mg/dL Low HDL Cholesterol HDL >or= 60 mg/dL High HDL Cholesterol Cholesterol in LDL [Mass/Vol] 154 mg/dL 0-130 [facility] CO2 [Moles/Vol] 29.0 mmol/L 21.0-32.0 [facility] Globulin (S) [Mass/Vol] 3.7 g/dL 2.2-4.2 [facility] Urea nitrogen/Creatinine [Mass ratio] 19.8 mg/mg 10-20 [facility] - Hematology and Cell countsOrdered By: Lawrence Wilson on 01-12-2024 MCH (RBC) [Entitic mass] 31.0 pg 27.0-32.0 [facility] MCHC (RBC) [Mass/Vol] 33.7 g/dL 32-[address] [facility] Nucleated RBC/100 WBC (Bld) [Ratio] 0 % 0-5 [facility] Platelet mean volume (Bld) [Entitic vol] 10.3 fL 6.2-12.0 [facility] Platelets (Bld) [#/Vol] 248 10*3/uL 150-450 [facility] No Panel InformationOrdered By: Lawrence Wilson on 01-12-2024 Estimated GFR (MDRD) Amer 83 mL/min >60 [facility] Comment on above: GFR Calc Estimated GFR (MDRD) Non-Af Amer 69 mL/min >60 [facility] Comment on above: Non- GFR Calc VLDL Cholesterol 17 mg/dL 5-40 [facility] RBC Auto (Bld) [#/Vol]Ordere d By: Lawrence Wilson on 01-12-2024 RBC (Bld) [#/Vol] 4.52 10*6/uL 4.6-6.2 [facility] Serum or plasma calcium ash urement (mass/volume)Ordered By: Lawrence Wilson on 01-12-2024 Calcium [Mass/Vol] 9.0 mg/dL 8.5-10.1 [facility] Serum or plasma creatinine m easurement (mass/volume)Ordered By: Lawrence Wilson on 01-12-2024 Creatinine [Mass/Vol] 1.11 mg/dL 0.70-1.[address] [facility] Comment on above: The validity of the calculated GFR & GFRAA in patients over 70 years has not been determined. Clinical correlation is essential. Serum or plasma urea nitroge n measurement (mass/volume)Ordered By: Lawrence Wilson on 01-12-2024 Urea nitrogen [Mass/Vol] 22 mg/dL 7-18 [facility] Thin prep Papanicolaou smear with manual screeningOrdered By: Lawrence Wilson on 01-12-2024 Thin prep Papanicolaou smear with manual screening 4.0 g/dL 3.2-5.0 [facility] Thin prep Papanicolaou smear with manual screening 19 U/L 15-37 [facility] Thin prep Papanicolaou smear with manual screening 2 5-15 [facility] Absolute lymphocyte countOrd ered By: Lawrence Wilson on 09-19-2023 Lymphocytes Auto (Unsp spec) [#/Vol] 1.28 10*3/uL 0.83-4.51 [facility] Basophil percentageOrdered B y: Lawrence Wilson on 09-19-2023 Basophils/100 WBC (Bld) 1.1 % 0-1 [facility] Bilirubin [Mass/Vol] 0.40 mg/dL 0.20-1.00 [facility] Comment on above: For patients on eltr ombopag therapy, use of [employer] TBIL is not recommended. Chloride [Moles/Vol] 108 mmol/L 98-107 [facility] Cholesterol [Mass/Vol] 165 mg/dL <200 [facility] Comment on above: <200 mg/dL Desirable 200-240 mg/dL Borderline >240 mg/dL High Risk Eosinophils/100 WBC (Bld) 3.9 % 0-5 [facility] Glucose [Mass/Vol] 95 mg/dL 74-106 [facility] Neutrophils (Bld) [#/Vol] 2.3 10*3/uL 2.0-7.7 [facility] Neutrophils/100 WBC (Bld) 52.8 % 47-70 [facility] Potassium [Moles/Vol] 4.3 mmol/L 3.5-5.[address] [facility] Protein [Mass/Vol] 7.4 g/dL 6.4-8.2 [facility] Sodium [Moles/Vol] 139 mmol/L 136-145 [facility] Triglyceride [Mass/Vol] 97 mg/dL <199 [facility] Comment on above: The drugs N-Acetylcy steine and Metamizole may falsely depress this assay.Serum Triglycerides Reference Interval Normal <150 mg/dL Borderline high 150 - 199 mg/dL High 200 - 499 mg/dL Very High > or = 500 mg/dL WBC (Bld) [#/Vol] 4.4 10*3/uL 4.4-11.0 [facility] Blood erythrocytes count (nu mber/volume)Ordered By: Lawrence Wilson on 09-19-2023 RBC (Bld) [#/Vol] 4.46 10*6/uL 4.6-6.2 [facility] Blood hemoglobin measurement (mass/volume)Ordered By: Lawrence Wilson on 09-19-2023 Hemoglobin (Bld) [Mass/Vol] 13.4 g/dL 13.0-16.5 [facility] Blood lymphocytes/100 leukoc ytesOrdered By: Lawrence Wilson on 09-19-2023 Lymphocytes/100 WBC (Bld) 29.4 % 19-41 [facility] Blood monocytes/100 leukocyt esOrdered By: Lawrence Wilson on 09-19-2023 Monocytes/100 WBC (Bld) 12.6 % 0-10 [facility] Blood platelet mean volumeOr dered By: Lawrence Wilson on 09-19-2023 Platelet mean volume (Bld) [Entitic vol] 10.7 fL 6.2-12.0 [facility] Determination of erythrocyte mean corpuscular volume (MCV)Ordered By: Lawrence Wilson on 09-19-2023 MCV (RBC) [Entitic vol] 91.7 fL 80-94 [facility] Hematocrit Auto (Bld) [Volum e fraction]Ordered By: Lawrence Wilson on 09-19-2023 Hematocrit (Bld) [Volume fraction] 40.9 % 40-54 [facility] - Chemistry and C hemistry - challengeOrdered By: Lawrence Wilson on 09-19-2023 ALP [Catalytic activity/Vol] 78 U/L 45-117 [facility] ALT [Catalytic activity/Vol] 32 U/L 16-61 [facility] CO2 [Moles/Vol] 26.0 mmol/L 21.0-32.0 [facility] Globulin (S) [Mass/Vol] 3.8 g/dL 2.2-4.2 [facility] Urea nitrogen/Creatinine [Mass ratio] 28.0 mg/mg 10-20 [facility] - Hematology and Cell countsOrdered By: Lawrence Wilson on 09-19-2023 Erythrocyte distribution width (RBC) [Entitic vol] 45.0 fL 35.1-43.9 [facility] Erythrocyte distribution width (RBC) [Ratio] 13.3 % 11.6-14.6 [facility] Immature granulocytes/100 WBC (Bld) 0.200 % 0.0-0.9 [facility] Comment on above: IG% - Immature Granu locytes (promyelocytes, myelocytes and metamyelocytes) > 1% indicates that a LEFT SHIFT is Present. MCH (RBC) [Entitic mass] 30.0 pg 27.0-32.0 [facility] Nucleated RBC/100 WBC (Bld) [Ratio] 0 % 0-5 [facility] MCHC Auto (RBC) [Mass/Vol]Or dered By: Lawrence Wilson on 09-19-2023 MCHC (RBC) [Mass/Vol] 32.8 g/dL 32-[address] [facility] No Panel InformationOrdered By: Tucker Perry on 09-19-2023 Prostate Specific Antigen Total 1.30 ng/mL 0.0-4.0 [facility] Comment on above: This test was perfor med using the TPSA assay method for [employer] chemistry system. Values obtained with differentassay methods cannot be used interchangably.When changing PSA assays in the course of monitoring apatient, additional sequential testing should be carriedout to confirm baseline values. No Panel InformationOrdered By: Lawrence Wilson on 09-19-2023 Estimated GFR (MDRD) Amer 87 mL/min >60 [facility] Comment on above: GFR Calc Estimated GFR (MDRD) Non-Af Amer 72 mL/min >60 [facility] Comment on above: Non- GFR Calc Platelets bldOrdered By: Gerhard Wilson on 09-19-2023 Platelets (Bld) [#/Vol] 233 10*3/uL 150-450 [facility] Serum or plasma albumin ash urement (mass/volume)Ordered By: Lawrence Wilson on 09-19-2023 Albumin [Mass/Vol] 3.6 g/dL 3.2-5.0 [facility] Serum or plasma albumin/glob ulin mass ratioOrdered By: Lawrence Wilson on 09-19-2023 Albumin/Globulin [Mass ratio] 0.9 {ratio} 0.9-2.4 [facility] Serum or plasma calcium ash urement (mass/volume)Ordered By: Lawrence Wilson on 09-19-2023 Calcium [Mass/Vol] 8.9 mg/dL 8.5-10.1 [facility] Serum or plasma cholesterol in HDL measurement (mass/volume)Ordered By: Lawrence Wilson on 09-19-2023 Cholesterol in HDL [Mass/Vol] 51 mg/dL >40 [facility] Comment on above: The drugs N-Acetylcy steine and Metamizole may falsely depress this assay. Reference Range HDL <40 mg/dL Low HDL Cholesterol HDL >or= 60 mg/dL High HDL Cholesterol Serum or plasma cholesterol in VLDL measurement (mass/volume)Ordered By: Lawrence Wilson on 09-19-2023 Cholesterol in VLDL [Mass/Vol] 19 mg/dL 5-40 [facility] Serum or plasma creatinine m easurement (mass/volume)Ordered By: Lawrence Wilson on 09-19-2023 Creatinine [Mass/Vol] 1.07 mg/dL 0.70-1.[address] [facility] Comment on above: The validity of the calculated GFR & GFRAA in patients over 70 years has not been determined. Clinical correlation is essential. Serum or plasma low density lipoprotein (LDL) cholesterol measurement (mass/volume)Ordered By: Lawrence Wilson on 09-19-2023 Cholesterol in LDL [Mass/Vol] 95 mg/dL 0-130 [facility] Serum or plasma urea nitroge n measurement (mass/volume)Ordered By: Lawrence Wilson on 09-19-2023 Urea nitrogen [Mass/Vol] 30 mg/dL 7-18 [facility] Thin prep Papanicolaou smear with manual screeningOrdered By: Lawrence Wilson on 09-19-2023 Thin prep Papanicolaou smear with manual screening 20 U/L 15-37 [facility] Thin prep Papanicolaou smear with manual screening 5 5-15 [facility] Absolute lymphocyte countOrd ered By: Dr. Wilson on 03-11-2023 Lymphocytes Auto (Unsp spec) [#/Vol] 1.14 10*3/uL 0.83-4.51 [facility] Basophil percentageOrdered B y: Dr. Wilson on 03-11-2023 Basophils/100 WBC (Bld) 1.0 % 0-1 [facility] Bilirubin [Mass/Vol] 0.60 mg/dL 0.20-1.00 [facility] Comment on above: For patients on eltr ombopag therapy, use of [employer] TBIL is not recommended. Chloride [Moles/Vol] 107 mmol/L 98-107 [facility] Cholesterol [Mass/Vol] 195 mg/dL <200 [facility] Comment on above: <200 mg/dL Desirable 200-240 mg/dL Borderline >240 mg/dL High Risk Eosinophils/100 WBC (Bld) 3.5 % 0-5 [facility] Glucose [Mass/Vol] 89 mg/dL 74-106 [facility] Neutrophils (Bld) [#/Vol] 2.2 10*3/uL 2.0-7.7 [facility] Neutrophils/100 WBC (Bld) 53.5 % 47-70 [facility] Potassium [Moles/Vol] 4.1 mmol/L 3.5-5.[address] [facility] Protein [Mass/Vol] 7.2 g/dL 6.4-8.2 [facility] Sodium [Moles/Vol] 138 mmol/L 136-145 [facility] Triglyceride [Mass/Vol] 83 mg/dL <199 [facility] Comment on above: The drugs N-Acetylcy steine and Metamizole may falsely depress this assay.Serum Triglycerides Reference Interval Normal <150 mg/dL Borderline high 150 - 199 mg/dL High 200 - 499 mg/dL Very High > or = 500 mg/dL WBC (Bld) [#/Vol] 4.0 10*3/uL 4.4-11.0 [facility] Blood erythrocytes count (nu mber/volume)Ordered By: Dr. Wilson on 03-11-2023 RBC (Bld) [#/Vol] 4.38 10*6/uL 4.6-6.2 [facility] Blood hemoglobin measurement (mass/volume)Ordered By: Dr. Wilson on 03-11-2023 Hemoglobin (Bld) [Mass/Vol] 13.4 g/dL 13.0-16.5 [facility] Blood lymphocytes/100 leukoc ytesOrdered By: Dr. Wilson on 03-11-2023 Lymphocytes/100 WBC (Bld) 28.4 % 19-41 [facility] Blood monocytes/100 leukocyt esOrdered By: Dr. Wilson on 03-11-2023 Monocytes/100 WBC (Bld) 13.4 % 0-10 [facility] Blood platelet mean volumeOr dered By: Dr. Wilson on 03-11-2023 Platelet mean volume (Bld) [Entitic vol] 10.7 fL 6.2-12.0 [facility] Determination of erythrocyte mean corpuscular volume (MCV)Ordered By: Dr. Wilson on 03-11-2023 MCV (RBC) [Entitic vol] 93.2 fL 80-94 [facility] Hematocrit Auto (Bld) [Volum e fraction]Ordered By: Dr. Wilson on 03-11-2023 Hematocrit (Bld) [Volume fraction] 40.8 % 40-54 [facility] - Chemistry and C hemistry - challengeOrdered By: Dr. Wilson on 03-11-2023 ALP [Catalytic activity/Vol] 76 U/L 45-117 [facility] ALT [Catalytic activity/Vol] 31 U/L 16-61 [facility] CO2 [Moles/Vol] 28.0 mmol/L 21.0-32.0 [facility] Globulin (S) [Mass/Vol] 3.5 g/dL 2.2-4.2 [facility] Urea nitrogen/Creatinine [Mass ratio] 24.3 mg/mg 10-20 [facility] - Hematology and Cell countsOrdered By: Dr. Wilson on 03-11-2023 Erythrocyte distribution width (RBC) [Entitic vol] 47.4 fL 35.1-43.9 [facility] Erythrocyte distribution width (RBC) [Ratio] 13.8 % 11.6-14.6 [facility] Immature granulocytes/100 WBC (Bld) 0.200 % 0.0-0.9 [facility] Comment on above: IG% - Immature Granu locytes (promyelocytes, myelocytes and metamyelocytes) > 1% indicates that a LEFT SHIFT is Present. MCH (RBC) [Entitic mass] 30.6 pg 27.0-32.0 [facility] Nucleated RBC/100 WBC (Bld) [Ratio] 0 % 0-5 [facility] MCHC Auto (RBC) [Mass/Vol]Or dered By: Dr. Wilson on 03-11-2023 MCHC (RBC) [Mass/Vol] 32.8 g/dL 32-[address] [facility] No Panel InformationOrdered By: Dr. Wilson on 03-11-2023 Estimated GFR (MDRD) Amer 91 mL/min >60 [facility] Comment on above: GFR Calc Estimated GFR (MDRD) Non-Af Amer 75 mL/min >60 [facility] Comment on above: Non- GFR Calc No Panel InformationOrdered By: Dr. Perry on 03-11-2023 Prostate Specific Antigen Total 1.02 ng/mL 0.0-4.0 [facility] Comment on above: This test was perfor med using the TPSA assay method for [employer] chemistry system. Values obtained with differentassay methods cannot be used interchangably.When changing PSA assays in the course of monitoring apatient, additional sequential testing should be carriedout to confirm baseline values. Platelets bldOrdered By: Dr. Wilson on 03-11-2023 Platelets (Bld) [#/Vol] 222 10*3/uL 150-450 [facility] Serum or plasma albumin ash urement (mass/volume)Ordered By: Dr. Wilson on 03-11-2023 Albumin [Mass/Vol] 3.7 g/dL 3.2-5.0 [facility] Serum or plasma albumin/glob ulin mass ratioOrdered By: Dr. Wilson on 03-11-2023 Albumin/Globulin [Mass ratio] 1.1 {ratio} 0.9-2.4 [facility] Serum or plasma calcium ash urement (mass/volume)Ordered By: Dr. Wilson on 03-11-2023 Calcium [Mass/Vol] 8.7 mg/dL 8.5-10.1 [facility] Serum or plasma cholesterol in HDL measurement (mass/volume)Ordered By: Dr. Wilson on 03-11-2023 Cholesterol in HDL [Mass/Vol] 55 mg/dL >40 [facility] Comment on above: The drugs N-Acetylcy steine and Metamizole may falsely depress this assay. Reference Range HDL <40 mg/dL Low HDL Cholesterol HDL >or= 60 mg/dL High HDL Cholesterol Serum or plasma cholesterol in VLDL measurement (mass/volume)Ordered By: Dr. Wilson on 03-11-2023 Cholesterol in VLDL [Mass/Vol] 17 mg/dL 5-40 [facility] Serum or plasma creatinine m easurement (mass/volume)Ordered By: Dr. Wilson on 03-11-2023 Creatinine [Mass/Vol] 1.03 mg/dL 0.70-1.[address] [facility] Comment on above: The validity of the calculated GFR & GFRAA in patients over 70 years has not been determined. Clinical correlation is essential. Serum or plasma low density lipoprotein (LDL) cholesterol measurement (mass/volume)Ordered By: Dr. Wilson on 03-11-2023 Cholesterol in LDL [Mass/Vol] 123 mg/dL 0-130 [facility] Serum or plasma urea nitroge n measurement (mass/volume)Ordered By: Dr. Wilson on 03-11-2023 Urea nitrogen [Mass/Vol] 25 mg/dL 7-18 [facility] Thin prep Papanicolaou smear with manual screeningOrdered By: Dr. Wilson on 03-11-2023 Thin prep Papanicolaou smear with manual screening 21 U/L 15-37 [facility] Thin prep Papanicolaou smear with manual screening 3 5-15 [facility] No Panel InformationOrdered By: Dr. Perry on 12-03-2022 Prostate Specific Antigen Total 1.46 ng/mL 0.0-4.0 [facility] Comment on above: This test was perfor med using the TPSA assay method for the[facility]. Values obtained with differentassay methods cannot be used interchangably.When changing PSA assays in the course of monitoring apatient, additional sequential testing should be carriedout to confirm baseline values. Absolute lymphocyte countOrd ered By: Dr. Wilson on 10-08-2022 Lymphocytes Auto (Unsp spec) [#/Vol] 1.38 10*3/uL 0.83-4.51 [facility] Basophil percentageOrdered B y: Dr. Wilson on 10-08-2022 Basophils/100 WBC (Bld) 1.2 % 0-1 [facility] Bilirubin [Mass/Vol] 0.60 mg/dL 0.20-1.00 [facility] Comment on above: For patients on eltr ombopag therapy, use of [employer] TBIL is not recommended. Chloride [Moles/Vol] 106 mmol/L 98-107 [facility] Cholesterol [Mass/Vol] 181 mg/dL <200 [facility] Comment on above: <200 mg/dL Desirable 200-240 mg/dL Borderline >240 mg/dL High Risk Eosinophils/100 WBC (Bld) 4.0 % 0-5 [facility] Glucose [Mass/Vol] 95 mg/dL 74-106 [facility] Neutrophils (Bld) [#/Vol] 2.1 10*3/uL 2.0-7.7 [facility] Neutrophils/100 WBC (Bld) 49.7 % 47-70 [facility] Potassium [Moles/Vol] 4.6 mmol/L 3.5-5.[address] [facility] Protein [Mass/Vol] 7.1 g/dL 6.4-8.2 [facility] Sodium [Moles/Vol] 141 mmol/L 136-145 [facility] Triglyceride [Mass/Vol] 96 mg/dL <199 [facility] Comment on above: The drugs N-Acetylcy steine and Metamizole may falsely depress this assay.Serum Triglycerides Reference Interval Normal <150 mg/dL Borderline high 150 - 199 mg/dL High 200 - 499 mg/dL Very High > or = 500 mg/dL WBC (Bld) [#/Vol] 4.3 10*3/uL 4.4-11.0 [facility] Blood erythrocytes count (nu mber/volume)Ordered By: Dr. Wilson on 10-08-2022 RBC (Bld) [#/Vol] 4.32 10*6/uL 4.6-6.2 [facility] Blood hemoglobin measurement (mass/volume)Ordered By: Dr. Wilson on 10-08-2022 Hemoglobin (Bld) [Mass/Vol] 13.4 g/dL 13.0-16.5 [facility] Blood lymphocytes/100 leukoc ytesOrdered By: Dr. Wilson on 10-08-2022 Lymphocytes/100 WBC (Bld) 32.2 % 19-41 [facility] Blood monocytes/100 leukocyt esOrdered By: Dr. Wilson on 10-08-2022 Monocytes/100 WBC (Bld) 12.9 % 0-10 [facility] Blood platelet mean volumeOr dered By: Dr. Wilson on 10-08-2022 Platelet mean volume (Bld) [Entitic vol] 10.2 fL 6.2-12.0 [facility] Determination of erythrocyte mean corpuscular volume (MCV)Ordered By: Dr. Wilson on 10-08-2022 MCV (RBC) [Entitic vol] 92.6 fL 80-94 [facility] Hematocrit Auto (Bld) [Volum e fraction]Ordered By: Dr. Wilson on 10-08-2022 Hematocrit (Bld) [Volume fraction] 40.0 % 40-54 [facility] Laboratory - Chemistry and C hemistry - challengeOrdered By: Dr. Wilson on 10-08-2022 ALP [Catalytic activity/Vol] 75 U/L 45-117 [facility] ALT [Catalytic activity/Vol] 31 U/L 16-61 [facility] CO2 [Moles/Vol] 29.0 mmol/L 21.0-32.0 [facility] Globulin (S) [Mass/Vol] 3.3 g/dL 2.2-4.2 [facility] Urea nitrogen/Creatinine [Mass ratio] 22.6 mg/mg 10-20 [facility] Laboratory - Hematology and Cell countsOrdered By: Dr. Wilson on 10-08-2022 Erythrocyte distribution width (RBC) [Entitic vol] 45.0 fL 35.1-43.9 [facility] Erythrocyte distribution width (RBC) [Ratio] 13.3 % 11.6-14.6 [facility] Immature granulocytes/100 WBC (Bld) 0.000 % 0.0-0.9 [facility] Comment on above: IG% - Immature Granu locytes (promyelocytes, myelocytes and metamyelocytes) > 1% indicates that a LEFT SHIFT is Present. MCH (RBC) [Entitic mass] 31.0 pg 27.0-32.0 [facility] Nucleated RBC/100 WBC (Bld) [Ratio] 0 % 0-5 [facility] MCHC Auto (RBC) [Mass/Vol]Or dered By: Dr. Wilson on 10-08-2022 MCHC (RBC) [Mass/Vol] 33.5 g/dL 32-[address] [facility] No Panel InformationOrdered By: Dr. Wilson on 10-08-2022 Estimated GFR (MDRD) Amer 80 mL/min >60 [facility] Comment on above: GFR Calc Estimated GFR (MDRD) Non-Af Amer 66 mL/min >60 [facility] Comment on above: Non- GFR Calc Platelets bldOrdered By: Dr. Wilson on 10-08-2022 Platelets (Bld) [#/Vol] 234 10*3/uL 150-450 [facility] Serum or plasma albumin ash urement (mass/volume)Ordered By: Dr. Wilson on 10-08-2022 Albumin [Mass/Vol] 3.8 g/dL 3.2-5.0 [facility] Serum or plasma albumin/glob ulin mass ratioOrdered By: Dr. Wilson on 10-08-2022 Albumin/Globulin [Mass ratio] 1.2 {ratio} 0.9-2.4 [facility] Serum or plasma calcium ash urement (mass/volume)Ordered By: Dr. Wilson on 10-08-2022 Calcium [Mass/Vol] 8.8 mg/dL 8.5-10.1 [facility] Serum or plasma cholesterol in HDL measurement (mass/volume)Ordered By: Dr. Wilson on 10-08-2022 Cholesterol in HDL [Mass/Vol] 55 mg/dL >40 [facility] Comment on above: The drugs N-Acetylcy steine and Metamizole may falsely depress this assay. Reference Range HDL <40 mg/dL Low HDL Cholesterol HDL >or= 60 mg/dL High HDL Cholesterol Serum or plasma cholesterol in VLDL measurement (mass/volume)Ordered By: Dr. Wilson on 10-08-2022 Cholesterol in VLDL [Mass/Vol] 19 mg/dL 5-40 [facility] Serum or plasma creatinine m easurement (mass/volume)Ordered By: Dr. Wilson on 10-08-2022 Creatinine [Mass/Vol] 1.15 mg/dL 0.70-1.[address] [facility] Comment on above: The validity of the calculated GFR & GFRAA in patients over 70 years has not been determined. Clinical correlation is essential. Serum or plasma low density lipoprotein (LDL) cholesterol measurement (mass/volume)Ordered By: Dr. Wilson on 10-08-2022 Cholesterol in LDL [Mass/Vol] 107 mg/dL 0-130 [facility] Serum or plasma urea nitroge n measurement (mass/volume)Ordered By: Dr. Wilson on 10-08-2022 Urea nitrogen [Mass/Vol] 26 mg/dL 7-18 [facility] Thin prep Papanicolaou smear with manual screeningOrdered By: Dr. Wilson on 10-08-2022 Thin prep Papanicolaou smear with manual screening 24 U/L 15-37 [facility] Thin prep Papanicolaou smear with manual screening 6 5-15 [facility] No Panel Informationon 08-02 Prostate Specific Antigen Total 1.19 ng/mL 0.0-4.0 [facility] Work Phone: Comment on above: This test was perfor med using the TPSA assay method for the[facility] chemistry system. Values obtained with differentassay methods cannot be used interchangably.When changing PSA assays in the course of monitoring apatient, additional sequential testing should be carriedout to confirm baseline values. Absolute lymphocyte counton 06-08-2022 Lymphocytes Auto (Unsp spec) [#/Vol] 1.38 10*3/uL 0.83-4.51 [facility] Work Phone: Basophil percentageon 2021 Basophils/100 WBC (Bld) 0.9 % 0-1 [facility] Work Phone: Bilirubin [Mass/Vol] 0.80 mg/dL 0.20-1.00 [facility] Work Phone: Comment on above: For patients on eltr ombopag therapy, use of [employer] TBIL is not recommended. Chloride [Moles/Vol] 109 mmol/L 98-107 [facility] Work Phone: [phone] Cholesterol [Mass/Vol] 230 mg/dL <200 [facility] Work Phone: Comment on above: <200 mg/dL Desirable 200-240 mg/dL Borderline >240 mg/dL High Risk Eosinophils/100 WBC (Bld) 3.1 % 0-5 [facility] Work Phone: [phone] Glucose [Mass/Vol] 94 mg/dL 74-106 [facility] Work Phone: [phone] Neutrophils (Bld) [#/Vol] 2.3 10*3/uL 2.0-7.7 [facility] Work Phone: [phone] Neutrophils/100 WBC (Bld) 52.7 % 47-70 [facility] Work Phone: [phone] Potassium [Moles/Vol] 4.1 mmol/L 3.5-5.1 [facility] Work Phone: [phone] Protein [Mass/Vol] 7.4 g/dL 6.4-8.2 [facility] Work Phone: [phone] Sodium [Moles/Vol] 140 mmol/L 136-145 [facility] Work Phone: [phone] Triglyceride [Mass/Vol] 133 mg/dL <199 [facility] Work Phone: Comment on above: The drugs N-Acetylcy steine and Metamizole may falsely depress this assay.Serum Triglycerides Reference Interval Normal <150 mg/dL Borderline high 150 - 199 mg/dL High 200 - 499 mg/dL Very High > or = 500 mg/dL WBC (Bld) [#/Vol] 4.5 10*3/uL 4.4-11.0 [facility] Work Phone: Blood erythrocytes count (nu mber/volume)on 06-08-2022 RBC (Bld) [#/Vol] 4.44 10*6/uL 4.6-6.2 [facility] Work Phone: Blood hemoglobin measurement (mass/volume)on 06-08-2022 Hemoglobin (Bld) [Mass/Vol] 13.9 g/dL 13.0-16.5 [facility] Work Phone: Blood lymphocytes/100 leukoc yteson 06-08-2022 Lymphocytes/100 WBC (Bld) 31.0 % 19-41 [facility] Work Phone: Blood monocytes/100 leukocyt eson 06-08-2022 Monocytes/100 WBC (Bld) 12.1 % 0-10 [facility] Work Phone: Blood platelet mean volumeon 06-08-2022 Platelet mean volume (Bld) [Entitic vol] 10.8 fL 6.2-12.0 [facility] Work Phone: Determination of erythrocyte mean corpuscular volume (MCV)on 06-08-2022 MCV (RBC) [Entitic vol] 92.6 fL 80-94 [facility] Work Phone: Hematocrit Auto (Bld) [Volum e fraction]on 06-08-2022 Hematocrit (Bld) [Volume fraction] 41.1 % 40-54 [facility] Work Phone: Laboratory - Chemistry and C hemistry - challengeon 06-08-2022 ALP [Catalytic activity/Vol] 71 U/L 45-117 [facility] Work Phone: ALT [Catalytic activity/Vol] 26 U/L 16-61 [facility] Work Phone: CO2 [Moles/Vol] 27.0 mmol/L 21.0-32.0 [facility] Work Phone: Globulin (S) [Mass/Vol] 3.7 g/dL 2.2-4.2 [facility] Work Phone: Urea nitrogen/Creatinine [Mass ratio] 27.8 mg/mg 10-20 [facility] Work Phone: Laboratory - Hematology and Cell countson 06-08-2022 Erythrocyte distribution width (RBC) [Entitic vol] 46.3 fL 35.1-43.9 [facility] Work Phone: Erythrocyte distribution width (RBC) [Ratio] 13.6 % 11.6-14.6 [facility] Work Phone: Immature granulocytes/100 WBC (Bld) 0.200 % 0.0-0.9 [facility] Work Phone: Comment on above: IG% - Immature Granu locytes (promyelocytes, myelocytes and metamyelocytes) > 1% indicates that a LEFT SHIFT is Present. MCH (RBC) [Entitic mass] 31.3 pg 27.0-32.0 [facility] Work Phone: Nucleated RBC/100 WBC (Bld) [Ratio] 0 % 0-5 [facility] Work Phone: MCHC Auto (RBC) [Mass/Vol]on 06-08-2022 MCHC (RBC) [Mass/Vol] 33.8 g/dL 32-[address] [facility] Work Phone: No Panel Informationon 06-08 Estimated GFR (MDRD) Amer 86 mL/min >60 [facility] Work Phone: Comment on above: GFR Calc Estimated GFR (MDRD) Non-Af Amer 71 mL/min >60 [facility] Work Phone: Comment on above: Non- GFR Calc Platelets bldon 06-08-2022 Platelets (Bld) [#/Vol] 207 10*3/uL 150-450 [facility] Work Phone: Serum or plasma albumin ash urement (mass/volume)on 06-08-2022 Albumin [Mass/Vol] 3.7 g/dL 3.2-5.0 [facility] Work Phone: Serum or plasma albumin/glob ulin mass ratioon 06-08-2022 Albumin/Globulin [Mass ratio] 1.0 {ratio} 0.9-2.4 [facility] Work Phone: Serum or plasma calcium ash urement (mass/volume)on 06-08-2022 Calcium [Mass/Vol] 9.0 mg/dL 8.5-10.1 [facility] Work Phone: Serum or plasma cholesterol in HDL measurement (mass/volume)on 06-08-2022 Cholesterol in HDL [Mass/Vol] 47 mg/dL >40 [facility] Work Phone: Comment on above: The drugs N-Acetylcy steine and Metamizole may falsely depress this assay. Reference Range HDL <40 mg/dL Low HDL Cholesterol HDL >or= 60 mg/dL High HDL Cholesterol Serum or plasma cholesterol in VLDL measurement (mass/volume)on 06-08-2022 Cholesterol in VLDL [Mass/Vol] 27 mg/dL 5-40 [facility] Work Phone: Serum or plasma creatinine m easurement (mass/volume)on 06-08-2022 Creatinine [Mass/Vol] 1.08 mg/dL 0.70-1.[address] [facility] Work Phone: Comment on above: The validity of the calculated GFR & GFRAA in patients over 70 years has not been determined. Clinical correlation is essential. Serum or plasma low density lipoprotein (LDL) cholesterol measurement (mass/volume)on 06-08-2022 Cholesterol in LDL [Mass/Vol] 156 mg/dL 0-130 [facility] Work Phone: Serum or plasma urea nitroge n measurement (mass/volume)on 06-08-2022 Urea nitrogen [Mass/Vol] 30 mg/dL 7-18 [facility] Work Phone: Thin prep Papanicolaou smear with manual screeningon 06-08-2022 Thin prep Papanicolaou smear with manual screening 21 U/L 15-37 [facility] Work Phone: Thin prep Papanicolaou smear with manual screening 4 5-15 [facility] Work Phone: Basophil percentageon 2021 Bilirubin [Mass/Vol] 0.70 mg/dL 0.20-1.00 [facility] Work Phone: Comment on above: For patients on eltr ombopag therapy, use of [employer] TBIL is not recommended. Chloride [Moles/Vol] 106 mmol/L 98-107 [facility] Work Phone: Cholesterol [Mass/Vol] 241 mg/dL <200 [facility] Work Phone: Comment on above: <200 mg/dL Desirable 200-240 mg/dL Borderline >240 mg/dL High Risk Glucose [Mass/Vol] 90 mg/dL 74-106 [facility] Work Phone: Potassium [Moles/Vol] 4.2 mmol/L 3.5-5.[address] [facility] Work Phone: Protein [Mass/Vol] 7.3 g/dL 6.4-8.2 [facility] Work Phone: Sodium [Moles/Vol] 138 mmol/L 136-145 [facility] Work Phone: Triglyceride [Mass/Vol] 97 mg/dL [facility] Work Phone: Comment on above: The drugs N-Acetylcy steine and Metamizole may falsely depress this assay.Serum Triglycerides Reference Interval Normal <150 mg/dL Borderline high 150 - 199 mg/dL High 200 - 499 mg/dL Very High > or = 500 mg/dL Laboratory - Chemistry and C hemistry - challengeon 03-10-2022 ALP [Catalytic activity/Vol] 70 U/L 45-117 [facility] Work Phone: ALT [Catalytic activity/Vol] 30 U/L 16-61 [facility] Work Phone: CO2 [Moles/Vol] 27.0 mmol/L 21.0-32.0 [facility] Work Phone: Globulin (S) [Mass/Vol] 3.6 g/dL 2.2-4.2 [facility] Work Phone: Urea nitrogen/Creatinine [Mass ratio] 19.5 mg/mg 10-20 [facility] Work Phone: No Panel Informationon 03-10 Estimated GFR (MDRD) Amer 82 mL/min >60 [facility] Work Phone: Comment on above: GFR Calc Estimated GFR (MDRD) Non-Af Amer 68 mL/min >60 [facility] Work Phone: Comment on above: Non- GFR Calc Serum or plasma albumin ash urement (mass/volume)on 03-10-2022 Albumin [Mass/Vol] 3.7 g/dL 3.2-5.0 [facility] Work Phone: Serum or plasma albumin/glob ulin mass ratioon 03-10-2022 Albumin/Globulin [Mass ratio] 1.0 {ratio} 0.9-2.4 [facility] Work Phone: Serum or plasma calcium ash urement (mass/volume)on 03-10-2022 Calcium [Mass/Vol] 8.4 mg/dL 8.5-10.1 [facility] Work Phone: Serum or plasma cholesterol in HDL measurement (mass/volume)on 03-10-2022 Cholesterol in HDL [Mass/Vol] 48 mg/dL [facility] Work Phone: Comment on above: The drugs N-Acetylcy steine and Metamizole may falsely depress this assay. Reference Range HDL <40 mg/dL Low HDL Cholesterol HDL >or= 60 mg/dL High HDL Cholesterol Serum or plasma cholesterol in VLDL measurement (mass/volume)on 03-10-2022 Cholesterol in VLDL [Mass/Vol] 19 mg/dL 5-40 [facility] Work Phone: Serum or plasma creatinine m easurement (mass/volume)on 03-10-2022 Creatinine [Mass/Vol] 1.13 mg/dL 0.70-1.[address] [facility] Work Phone: Comment on above: The validity of the calculated GFR & GFRAA in patients over 70 years has not been determined. Clinical correlation is essential. Serum or plasma low density lipoprotein (LDL) cholesterol measurement (mass/volume)on 03-10-2022 Cholesterol in LDL [Mass/Vol] 174 mg/dL 0-130 [facility] Work Phone: Serum or plasma urea nitroge n measurement (mass/volume)on 03-10-2022 Urea nitrogen [Mass/Vol] 22 mg/dL 7-18 [facility] Work Phone: Thin prep Papanicolaou smear with manual screeningon 03-10-2022 Thin prep Papanicolaou smear with manual screening 23 U/L 15-37 [facility] Work Phone: Thin prep Papanicolaou smear with manual screening 5 5-15 [facility] Work Phone: Absolute lymphocyte counton 12-07-2021 Lymphocytes Auto (Unsp spec) [#/Vol] 1.31 10*3/uL 0.83-4.51 [facility] Work Phone: Basophil percentageon 2021 Basophils/100 WBC (Bld) 1.1 % 0-1 [facility] Work Phone: Bilirubin [Mass/Vol] 0.50 mg/dL 0.20-1.00 [facility] Work Phone: Comment on above: For patients on eltr ombopag therapy, use of [employer] [place] TBIL is not recommended. Chloride [Moles/Vol] 105 mmol/L 98-107 [facility] Work Phone: Cholesterol [Mass/Vol] 233 mg/dL <200 [facility] Work Phone: Comment on above: <200 mg/dL Desirable 200-240 mg/dL Borderline >240 mg/dL High Risk Eosinophils/100 WBC (Bld) 5.0 % 0-5 [facility] Work Phone: Glucose [Mass/Vol] 79 mg/dL 74-106 [facility] Work Phone: Neutrophils (Bld) [#/Vol] 2.4 10*3/uL 2.0-7.7 [facility] Work Phone: Neutrophils/100 WBC (Bld) 53.0 % 47-70 [facility] Work Phone: Potassium [Moles/Vol] 4.1 mmol/L 3.5-5.1 [facility] Work Phone: Protein [Mass/Vol] 7.6 g/dL 6.4-8.2 [facility] Work Phone: Sodium [Moles/Vol] 139 mmol/L 136-145 [facility] Work Phone: Triglyceride [Mass/Vol] 208 mg/dL [facility] Work Phone: Comment on above: The drugs N-Acetylcy steine and Metamizole may falsely depress this assay.Serum Triglycerides Reference Interval Normal <150 mg/dL Borderline high 150 - 199 mg/dL High 200 - 499 mg/dL Very High > or = 500 mg/dL WBC (Bld) [#/Vol] 4.6 10*3/uL 4.4-11.0 [facility] Work Phone: Blood erythrocytes count (nu mber/volume)on 12-07-2021 RBC (Bld) [#/Vol] 4.48 10*6/uL 4.6-6.2 [facility] Work Phone: Blood hemoglobin measurement (mass/volume)on 12-07-2021 Hemoglobin (Bld) [Mass/Vol] 13.6 g/dL 13.0-16.5 [facility] Work Phone: Blood lymphocytes/100 leukoc yteson 12-07-2021 Lymphocytes/100 WBC (Bld) 28.5 % 19-41 [facility] Work Phone: Blood monocytes/100 leukocyt eson 12-07-2021 Monocytes/100 WBC (Bld) 12.2 % 0-10 [facility] Work Phone: Blood platelet mean volumeon 12-07-2021 Platelet mean volume (Bld) [Entitic vol] 10.7 fL 6.2-12.0 [facility] Work Phone: Determination of erythrocyte mean corpuscular volume (MCV)on 12-07-2021 MCV (RBC) [Entitic vol] 90.8 fL 80-94 [facility] Work Phone: Hematocrit Auto (Bld) [Volum e fraction]on 12-07-2021 Hematocrit (Bld) [Volume fraction] 40.7 % 40-54 [facility] Work Phone: Laboratory - Chemistry and C hemistry - challengeon 12-07-2021 ALP [Catalytic activity/Vol] 77 U/L 45-117 [facility] Work Phone: ALT [Catalytic activity/Vol] 32 U/L 16-61 [facility] Work Phone: CO2 [Moles/Vol] 29.0 mmol/L 21.0-32.0 [facility] Work Phone: Globulin (S) [Mass/Vol] 4.0 g/dL 2.2-4.2 [facility] Work Phone: Urea nitrogen/Creatinine [Mass ratio] 20.2 mg/mg 10-20 [facility] Work Phone: Laboratory - Hematology and Cell countson 12-07-2021 Erythrocyte distribution width (RBC) [Entitic vol] 46.9 fL 35.1-43.9 [facility] Work Phone: Erythrocyte distribution width (RBC) [Ratio] 14.1 % 11.6-14.6 [facility] Work Phone: Immature granulocytes/100 WBC (Bld) 0.200 % 0.0-0.9 [facility] Work Phone: Comment on above: IG% - Immature Granu locytes (promyelocytes, myelocytes and metamyelocytes) > 1% indicates that a LEFT SHIFT is Present. MCH (RBC) [Entitic mass] 30.4 pg 27.0-32.0 [facility] Work Phone: Nucleated RBC/100 WBC (Bld) [Ratio] 0 % 0-5 [facility] Work Phone: MCHC Auto (RBC) [Mass/Vol]on 12-07-2021 MCHC (RBC) [Mass/Vol] 33.4 g/dL 32-36 [facility] Work Phone: No Panel Informationon 12-07 Estimated GFR (MDRD) Amer 86 mL/min >60 [facility] Work Phone: Comment on above: GFR Calc Estimated GFR (MDRD) Non-Af Amer 71 mL/min >60 [facility] Work Phone: Comment on above: Non- GFR Calc Prostate Specific Antigen Total 0.93 ng/mL 0.0-4.0 [facility] Work Phone: Comment on above: This test was perfor med using the TPSA assay method for the[employer] chemistry system. Values obtained with differentassay methods cannot be used interchangably.When changing PSA assays in the course of monitoring apatient, additional sequential testing should be carriedout to confirm baseline values. Platelets bldon 12-07-2021 Platelets (Bld) [#/Vol] 211 10*3/uL 150-450 [facility] Work Phone: Serum or plasma albumin ash urement (mass/volume)on 12-07-2021 Albumin [Mass/Vol] 3.6 g/dL 3.2-5.0 [facility] Work Phone: Serum or plasma albumin/glob ulin mass ratioon 12-07-2021 Albumin/Globulin [Mass ratio] 0.9 {ratio} 0.9-2.4 [facility] Work Phone: Serum or plasma calcium ash urement (mass/volume)on 12-07-2021 Calcium [Mass/Vol] 8.7 mg/dL 8.5-10.1 [facility] Work Phone: Serum or plasma cholesterol in HDL measurement (mass/volume)on 12-07-2021 Cholesterol in HDL [Mass/Vol] 46 mg/dL [facility] Work Phone: Comment on above: The drugs N-Acetylcy steine and Metamizole may falsely depress this assay. Reference Range HDL <40 mg/dL Low HDL Cholesterol HDL >or= 60 mg/dL High HDL Cholesterol Serum or plasma cholesterol in VLDL measurement (mass/volume)on 12-07-2021 Cholesterol in VLDL [Mass/Vol] 42 mg/dL 5-40 [facility] Work Phone: Serum or plasma creatinine m easurement (mass/volume)on 12-07-2021 Creatinine [Mass/Vol] 1.09 mg/dL 0.70-1.[address] [facility] Work Phone: Comment on above: The validity of the calculated GFR & GFRAA in patients over 70 years has not been determined. Clinical correlation is essential. Serum or plasma low density lipoprotein (LDL) cholesterol measurement (mass/volume)on 12-07-2021 Cholesterol in LDL [Mass/Vol] 145 mg/dL 0-130 [facility] Work Phone: Serum or plasma urea nitroge n measurement (mass/volume)on 12-07-2021 Urea nitrogen [Mass/Vol] 22 mg/dL 7-18 [facility] Work Phone: Thin prep Papanicolaou smear with manual screeningon 12-07-2021 Thin prep Papanicolaou smear with manual screening 28 U/L 15-37 [facility] Work Phone: Thin prep Papanicolaou smear with manual screening 5 5-15 [facility] Work Phone: Vital Signs Date Time Vital Sign Value Performing Clinician Lizett moreno 04-26-2025 08:13-0400 Body height 190.[address] Lawrence Wilson MD Work Phone: [facility] 04-26-2025 08:13-0400 Body weight 92.[address] Lawrence Wilson MD Work Phone: [facility] 03-29-2025 08:44-0400 Body height 190.[address] Lawrence Wilson MD Work Phone: [facility] 03-29-2025 08:44-0400 Body mass index (BMI) [Ratio] 25.5 kg/m2 Dr. Lawrence Wilson MD Work Phone: 4(053)548-710369 [place] [address] 03-29-2025 08:44-0400 Body temperature 96.7 [degF] Dr. Lawrence Wilson MD Work Phone: 2(958)236-072730 [place] [address] 03-29-2025 08:44-0400 Body weight 92.[address] Lawrence Wilson MD Work Phone: 3(444)898-316030 [place] [address] 03-29-2025 08:44-0400 Diastolic blood pressure 68 mm[Hg] Dr. Lawrence Wilson MD Work Phone: 8(686)515-327169 [place] [address] 03-29-2025 08:44-0400 Heart rate 55 /min Dr. Lawrence Wilson MD Work Phone: 9(848)918-618630 [place] [address] 03-29-2025 08:44-0400 Respiratory rate 16 /min Dr. Lawrence Wilson MD Work Phone: 5(960)470-048330 [place] [address] 03-29-2025 08:44-0400 SaO2% (BldA) [Mass fraction] 98 % Dr. Lawrence Wilson MD Work Phone: 4(040)633-575769 [place] [address] 03-29-2025 08:44-0400 Systolic blood pressure 114 mm[Hg] Dr. Lawrence Wilson MD Work Phone: 5(097)472-921430 [place] [address] 03-29-2025 07:14-0400 Body weight 92.[address] Lawrence Wilson MD Work Phone: 1(798)515-482169 [place] [address] 03-01-2025 07:35-0400 Body mass index (BMI) [Ratio] 25.3 kg/m2 Dr. Lawrence Wilson MD Work Phone: 3(832)912-365069 [place] [address] 03-01-2025 07:35-0400 Body weight 92.[address] Lawrence Wilson MD Work Phone: [facility] 03-01-2025 07:35-0400 Diastolic blood pressure 70 mm[Hg] Dr. Lawrence Wilson MD Work Phone: [facility] 03-01-2025 07:35-0400 Heart rate 52 /min Dr. Lawrence Wilson MD Work Phone: 0(321)783-703469 [place] [address] 03-01-2025 07:35-0400 Respiratory rate 18 /min Dr. Lawrence Wilson MD Work Phone: 2(718)666-743369 [place] [address] 03-01-2025 07:35-0400 Systolic blood pressure 122 mm[Hg] Dr. Lawrence Wilson MD Work Phone: 7(413)558-877381 [address] 02-27-2025 08:58-0400 Body mass index (BMI) [Ratio] 25.3 kg/m2 Dr. Lawrence Wilson MD Work Phone: [facility] 02-27-2025 08:26-0400 Diastolic blood pressure 62 mm[Hg] Dr. Lawrence Wilson MD Work Phone: 0(698)418-007669 [place] [address] 02-27-2025 08:26-0400 Heart rate 50 /min Dr. Lawrence Wilson MD Work Phone: 1(282)208-305781 [address] 02-27-2025 08:26-0400 SaO2% (BldA) [Mass fraction] 97 % Dr. Lawrence Wilson MD Work Phone: [facility] 02-27-2025 08:26-0400 Systolic blood pressure 120 mm[Hg] Dr. Lawrence Wilson MD Work Phone: 2(255)320-098230 [place] [address] 02-27-2025 08:14-0400 Body height 190.[address] Lawrence Wilson MD Work Phone: 9(601)167-941981 [address] 02-27-2025 08:14-0400 Body weight 92.[address] Lawrence Wilson MD Work Phone: 4(591)118-324469 [place] [address] 02-20-2025 08:41-0400 Body temperature 98.1 [degF] Dr. Lawrence Wilson MD Work Phone: [facility] 02-20-2025 08:41-0400 Diastolic blood pressure 94 mm[Hg] Dr. Lawrence Wilson MD Work Phone: 9(242)373-207769 [place] [address] 02-20-2025 08:41-0400 Heart rate 51 /min Dr. Lawrence Wilson MD Work Phone: 9(009)761-938269 [place] [address] 02-20-2025 08:41-0400 Respiratory rate 16 /min Dr. Lawrence Wlison MD Work Phone: 4(977)616-147730 [place] [address] 02-20-2025 08:41-0400 SaO2% (BldA) [Mass fraction] 98 % Dr. Lawrence Wilson MD Work Phone: 5(991)417-941030 [place] [address] 02-20-2025 08:41-0400 Systolic blood pressure 129 mm[Hg] Dr. Lawrence Wilson MD Work Phone: 8(062)163-676569 [place] [address] 02-19-2025 07:19-0400 Body height 190.[address] Lawrence Wilson MD Work Phone: 4(017)250-452769 [place] [address] 02-19-2025 07:19-0400 Body weight 92.[address] Lawrence Wilson MD Work Phone: 5(687)500-057230 [place] [address] 02-18-2025 12:09-0400 Body mass index (BMI) [Ratio] 25.3 kg/m2 Dr. Lawrence Wilson MD Work Phone: 2(858)435-142969 [place] [address] 02-05-2025 07:23-0400 Body height 190.[address] Lawrence Wilson MD Work Phone: 2(752)347-737830 [place] [address] 02-05-2025 07:23-0400 Body mass index (BMI) [Ratio] 25.3 kg/m2 Dr. Lawrence Wilson MD Work Phone: 0(591)635-551669 [place] [address] 02-05-2025 07:23-0400 Body weight 92.[address] Lawrence Wilson MD Work Phone: [facility] 02-05-2025 07:23-0400 Diastolic blood pressure 79 mm[Hg] Dr. Lawrence Wilson MD Work Phone: [facility] 02-05-2025 07:23-0400 Respiratory rate 18 /min Dr. Lawrence Wilson MD Work Phone: [facility] 02-05-2025 07:23-0400 Systolic blood pressure 154 mm[Hg] Dr. Lawrence Wilson MD Work Phone: [facility] 12-19-2023 08:58-0500 Body height 190.[address] Lawrence Wilson Work Phone: [facility] 12-19-2023 08:58-0500 Body mass index (BMI) [Ratio] 25.3 kg/m2 Dr. Lawrence Wilson Work Phone: [facility] 12-19-2023 08:58-0500 Body weight 92.[address] Lawrence Wilson Work Phone: [facility] 12-19-2023 08:58-0500 Diastolic blood pressure 79 mm[Hg] Dr. Lawrence Wilson Work Phone: [facility] 12-19-2023 08:58-0500 Heart rate 50 /min Dr. Lawrence Wilson Work Phone: [facility] 12-19-2023 08:58-0500 Respiratory rate 18 /min Dr. Lawrence Wilson Work Phone: [facility] 12-19-2023 08:58-0500 SaO2% (BldA) [Mass fraction] 97 % Dr. Lawrence Wilson Work Phone: [facility] 12-19-2023 08:58-0500 Systolic blood pressure 122 mm[Hg] Dr. Lawrence Wilson Work Phone: [facility] 09-22-2023 09:25-0500 Body height 190.[address] Lawrence Wilson Work Phone: 7(995)385-704569 [place] [address] 09-22-2023 09:25-0500 Body mass index (BMI) [Ratio] 25.5 kg/m2 Dr. Lawrence Wilson Work Phone: [facility] 09-22-2023 09:25-0500 Body temperature 97.9 [degF] Dr. Lawrence Wilson Work Phone: [facility] 09-22-2023 09:25-0500 Body weight 92.[address] Lawrence Wilson Work Phone: [facility] 09-22-2023 09:25-0500 Diastolic blood pressure 77 mm[Hg] Dr. Lawrence Wilson Work Phone: 2(212)278-909469 [place] [address] 09-22-2023 09:25-0500 Heart rate 51 /min Dr. Lawrence Wilson Work Phone: 0(872)508-535981 [address] 09-22-2023 09:25-0500 Respiratory rate 16 /min Dr. Lawrence Wilson Work Phone: [facility] 09-22-2023 09:25-0500 SaO2% (BldA) [Mass fraction] 96 % Dr. Lawrence Wilson Work Phone: 7(947)979-145069 [place] [address] 09-22-2023 09:25-0500 Systolic blood pressure 159 mm[Hg] Dr. Lawrence Wilson Work Phone: 9(416)399-914969 [place] [address] 03-22-2023 09:15-0400 Body height 190.[address] Lawrence Wilson Work Phone: [facility] 03-22-2023 09:13-0400 Body mass index (BMI) [Ratio] 25.2 kg/m2 Dr. Lawrence Wilson Work Phone: [facility] 03-22-2023 09:13-0400 Body temperature 97.2 [degF] Dr. Lawrence Wilson Work Phone: [facility] 03-22-2023 09:13-0400 Body weight 91.[address] Lawrence Wilson Work Phone: [facility] 03-22-2023 09:13-0400 Diastolic blood pressure 75 mm[Hg] Dr. Lawrence Wilson Work Phone: [facility] 03-22-2023 09:13-0400 Heart rate 52 /min Dr. Lawrence Wilson Work Phone: [facility] 03-22-2023 09:13-0400 Respiratory rate 18 /min Dr. Lawrence Wilson Work Phone: [facility] 03-22-2023 09:13-0400 SaO2% (BldA) [Mass fraction] 97 % Dr. Lawrence Wilson Work Phone: 2(234)732-155669 [place] [address] 03-22-2023 09:13-0400 Systolic blood pressure 158 mm[Hg] Dr. Lawrence Wilson Work Phone: 3(290)190-755781 [address] 03-15-2023 09:19-0400 Body height 190.[address] Lawrence Wilson Work Phone: 5(965)704-577569 [place] [address] 03-15-2023 09:19-0400 Body mass index (BMI) [Ratio] 25.1 kg/m2 Dr. Lawrence Wilson Work Phone: 4(934)394-779069 [place] [address] 03-15-2023 09:19-0400 Body weight 91.[address] Lawrence Wilson Work Phone: 3(431)119-952669 [place] [address] 03-15-2023 09:19-0400 Diastolic blood pressure 71 mm[Hg] Dr. Lawrence Wilson Work Phone: [facility] 03-15-2023 09:19-0400 Heart rate 57 /min Dr. Lawrence Wilson Work Phone: [facility] 03-15-2023 09:19-0400 Respiratory rate 18 /min Dr. Lawrence Wilson Work Phone: [facility] 03-15-2023 09:19-0400 SaO2% (BldA) [Mass fraction] 10 % Dr. Lawrence Wilson Work Phone: [facility] 03-15-2023 09:19-0400 Systolic blood pressure 129 mm[Hg] Dr. Lawrence Wilson Work Phone: [facility] 12-06-2022 09:11-0500 Body height 190.[address] Lawrence Wilson Work Phone: [facility] 12-06-2022 09:08-0500 Body mass index (BMI) [Ratio] 25.4 kg/m2 Dr. Lawrence Wilson Work Phone: [facility] 12-06-2022 09:08-0500 Body temperature 97.5 [degF] Dr. Lawrence Wilson Work Phone: [facility] 12-06-2022 09:08-0500 Body weight 92.[address] Lawrence Wilson Work Phone: [facility] 12-06-2022 09:08-0500 Diastolic blood pressure 74 mm[Hg] Dr. Lawrence Wilson Work Phone: [facility] 12-06-2022 09:08-0500 Heart rate 54 /min Dr. Lawrence Wilson Work Phone: [facility] 12-06-2022 09:08-0500 Respiratory rate 16 /min Dr. Lawrence Wilson Work Phone: [facility] 12-06-2022 09:08-0500 SaO2% (BldA) [Mass fraction] 98 % Dr. Lawrence Wilson Work Phone: [facility] 12-06-2022 09:08-0500 Systolic blood pressure 146 mm[Hg] Dr. Lawrence Wilson Work Phone: [facility] 08-26-2022 08:27-0400 Body height 190.[address] Lawrence Wilson Work Phone: [facility] Work Phone: 08-26-2022 08:27-0400 Body mass index (BMI) [Ratio] 24.7 kg/m2 Dr. Lawrence Wilson Work Phone: [facility] 08-26-2022 08:27-0400 Body weight 89.[address] Lawrence Wilson Work Phone: [facility] 08-26-2022 08:27-0400 Diastolic blood pressure 63 mm[Hg] Dr. Lawrence Wilson Work Phone: [facility] 08-26-2022 08:27-0400 Heart rate 55 /min Dr. Lawrence Wilson Work Phone: [facility] 08-26-2022 08:27-0400 Respiratory rate 18 /min Dr. Lawrence Wilson Work Phone: [facility] 08-26-2022 08:27-0400 SaO2% (BldA) [Mass fraction] 99 % Dr. Lawrence Wilson Work Phone: [facility] 08-26-2022 08:27-0400 Systolic blood pressure 133 mm[Hg] Dr. Lawrence Wilson Work Phone: [facility] 08-05-2022 09:06-0400 Body height 190.[address] Lawrence Wilson Work Phone: [facility] Work Phone: 08-05-2022 09:03-0400 Body mass index (BMI) [Ratio] 24.5 kg/m2 Dr. Lawrence Wilson Work Phone: [facility] Work Phone: 08-05-2022 09:03-0400 Body temperature 97 [degF] Dr. Lawrence Wilson Work Phone: [facility] Work Phone: 08-05-2022 09:03-0400 Body weight 89.[address] Lawrence Wilson Work Phone: [facility] Work Phone: 08-05-2022 09:03-0400 Diastolic blood pressure 71 mm[Hg] Dr. Lawrence Wilson Work Phone: [facility] Work Phone: 08-05-2022 09:03-0400 Heart rate 46 /min Dr. Lawrence Wilson Work Phone: [facility] Work Phone: 08-05-2022 09:03-0400 Respiratory rate 16 /min Dr. Lawrence Wilson Work Phone: [facility] Work Phone: 08-05-2022 09:03-0400 SaO2% (BldA) [Mass fraction] 98 % Dr. Lawrence Wilson Work Phone: [facility] Work Phone: 08-05-2022 09:03-0400 Systolic blood pressure 160 mm[Hg] Dr. Lawrence Wilson Work Phone: [facility] Work Phone: 03-04-2022 15:48-0400 Body height 190.[address] Lawrence Wilson Work Phone: [facility] Work Phone: 03-04-2022 15:48-0400 Body mass index (BMI) [Ratio] 25.7 kg/m2 Dr. Lawrence Wilson Work Phone: [facility] Work Phone: 03-04-2022 15:48-0400 Body weight 93.[address] Lawrence Wilson Work Phone: [facility] Work Phone: 03-04-2022 15:48-0400 Diastolic blood pressure 60 mm[Hg] Dr. Lawrence Wilson Work Phone: [facility] Work Phone: 03-04-2022 15:48-0400 Heart rate 56 /min Dr. Lawrence Wilson Work Phone: [facility] Work Phone: 03-04-2022 15:48-0400 Respiratory rate 16 /min Dr. Lawrence Wilson Work Phone: [facility] Work Phone: 03-04-2022 15:48-0400 Systolic blood pressure 140 mm[Hg] Dr. Lawrence Wilson Work Phone: [facility] Work Phone: 02-01-2022 08:09-0400 Body mass index (BMI) [Ratio] 25.8 kg/m2 Dr. Lawrence Wilson Work Phone: [facility] Work Phone: 02-01-2022 08:09-0400 Body temperature 97.1 [degF] Dr. Lawrence Wilson Work Phone: [facility] Work Phone: 02-01-2022 08:09-0400 Body weight 93.[address] Lawrence Wilson Work Phone: [facility] Work Phone: 02-01-2022 08:09-0400 Diastolic blood pressure 69 mm[Hg] Dr. Lawrence Wilson Work Phone: [facility] Work Phone: 02-01-2022 08:09-0400 Heart rate 60 /min Dr. Lawrence Wilson Work Phone: [facility] Work Phone: 02-01-2022 08:09-0400 Respiratory rate 14 /min Dr. Lawrence Wilson Work Phone: [facility] Work Phone: 02-01-2022 08:09-0400 SaO2% (BldA) [Mass fraction] 100 % Dr. Lawrence Wilson Work Phone: [facility] Work Phone: 02-01-2022 08:09-0400 Systolic blood pressure 131 mm[Hg] Dr. Lawrence iWlson Work Phone: [facility] Work Phone: Encounters Encounter Date Encounter Type Care Provider Facility Start: 05-31-2025 ambulatory Maged Watts Facility:[facility] Start: 05-13-2025 End: 05-13-[address] Lawrence Wilson MD Work Phone: -Cardiac Rehab Start: 05-13-2025 End: 05-13-[address] Maged Watts MD -[facility] Rehab Work Phone: Start: 04-12-2025 End: 04-13-[address] Lawrence Wilson MD Work Phone: [facility] Work Phone: Start: 04-12-2025 End: 04-13-[address] Maged Watts MD -Cardiac Rehab Work Phone: Start: 03-29-2025 End: 03-29-[address] Tucker Perry DO -[facility] Work Phone: Start: 03-29-2025 End: 03-29-[address] Lawrence Wilson MD Work Phone: [facility] Work Phone: Start: 03-29-[address] Maged byrne MD -Cardiac Rehab Work Phone: Start: 03-27-2025 End: 03-27-[address] Lawrence Wilson MD Work Phone: [facility] Work Phone: Start: 03-27-2025 End: 03-27-[address] Tucker Perry DO [facility] Work Phone: Start: 03-27-2025 End: 03-27-2025 ambulatory Tucker Perry Facility:[facility] Start: 03-13-2025 End: 03-13-2025 ambulatory Maged Watts Facility:[facility] Start: 03-13-2025 End: 03-13-[address] Maged Watts MD -Cardiac Rehab Work Phone: Start: 03-11-[address] Maged byrne MD -Cardiac Rehab Work Phone: Start: 03-07-2025 End: 03-07-[address] Lawrence Wilson MD Work Phone: [facility] Work Phone: Start: 03-07-2025 End: 03-07-[address] Lawrence Wilson MD -Laboratory, [facility] Start: 03-07-2025 End: 03-07-2025 ambulatory Lawrence Wilson Facility:[facility] Start: 03-01-2025 End: 03-01-2025 Patient encounter procedure Nessa GABRIEL -[facility] Work Phone: Start: 03-01-2025 End: 03-01-2025 ambulatory Lawrence Wilson Facility[facility] Start: 02-28-2025 Encounter for genera l adult medical examination without abnormal findings Maged Watts [facility] Start: 02-27-2025 End: 02-27-[address] Lawrence Wilson MD Work Phone: [facility] Work Phone: Start: 02-27-2025 End: 02-27-[address] Maged Watts MD -Cardiac Rehab Work Phone: Start: 02-27-2025 End: 02-27-2025 ambulatory Maged Watts Facility:[facility] Start: 02-22-2025 Non-patient / Non-visit Dr. Maged rodgers MD -[facility] Start: 02-22-2025 ambulatory Magedvicente Watts Facility:[facility] Start: 02-20-2025 Non-patient / Non-visit Dr. Montserrat WATKINS -[facility] Start: 02-19-2025 End: 02-20-2025 ambulatory Lawrence Wilson Facility:[facility] Start: 02-19-2025 End: 02-20-2025 Evaluation and management of inpatient Dr. Michael Freeman MD -Progressive Care Unit Work Phone: Start: 02-19-2025 End: 02-20-[address] Lawrence Wilson MD Work Phone: [facility] Work Phone: Start: 02-06-2025 End: 02-06-[address] Lawrence Wilson MD Work Phone: [facility] Work Phone: Start: 02-06-2025 End: 02-06-2025 [facility] Start: 02-05-2025 End: 02-05-2025 Patient encounter procedure Mai GROSSAMN -[facility] Work Phone: Start: 02-05-2025 End: 02-06-2025 ambulatory Lawrence Wilson Facility:[facility] Start: 02-01-2025 ambulatory Lawrence Wilson Facilit y:[facility] Start: 02-01-2025 Non-patient / Non-visit Dr. Montserrat [facility]KINS -[facility] Start: 02-01-2025 End: 02-01-[address] Lawrence Wilson MD Work Phone: [facility] Work Phone: Start: 02-01-2025 End: 02-01-[address] Lawrence Wilson MD -Cardiovascular Services Work Phone: Start: 02-01-2025 End: 02-01-2025 ambulatory Lawrence Wilson Facility:[facility] Start: 01-02-2025 End: 01-02-[address] [facility] Start: 01-02-2025 End: 01-02-2025 ambulatory Lawrence Wilson Facility:[facility] Start: 09-28-2024 End: 09-28-2024 ambulatory [facility] Facility[facility] Start: 09-24-2024 End: 09-24-2024 ambulatory Tucker Sparks Facility:[facility] Start: 01-25-2024 Non-patient / Non-visit Dr. Leah Wilson Work Phone: [facility] Start: 01-25-2024 End: 01-25-[address] Lawrence Wilson Work Phone: [facility] Work Phone: Start: 01-25-2024 End: 01-25-[address] Lawrence Wilson Work Phone: [facility] Work Phone: Start: 01-12-2024 End: 01-12-[address] Lawrence Wilson Work Phone: [facility] Work Phone: Start: 01-12-2024 End: 01-12-[address] Lawrence Wilson Work Phone[facility] Start: 12-19-2023 End: 12-19-[address] Lawrence Wilson Work Phone: [facility] Work Phone: Start: 12-02-2023 End: 12-02-[address] Lawrence Wilson Work Phone: [facility] Work Phone: Start: 09-26-2023 End: 09-26-[address] Lawrence Wilson Work Phone: [facility] Work Phone: Start: 09-26-2023 End: 09-26-[address] Lawrence Wilson Work Phone: [facility] Work Phone: Start: 09-22-2023 End: 09-22-[address] Lawrence Wilson Work Phone: [facility] Work Phone: Start: 09-19-2023 End: 09-19-[address] Lawrence Wilson Work Phone: [facility] Work Phone: Start: 09-19-2023 End: 09-19-[address] Lawrence Wilson Work Phone: [facility] Work Phone: Start: 03-23-2023 Non-patient / Non-visit Dr. Leah Wilson Work Phone: [facility] Start: 03-23-2023 End: 03-23-[address] Lawrence Wilson Work Phone: [facility] Work Phone: Start: 03-23-2023 End: 03-23-[address] [facility] Start: 03-22-2023 End: 03-22-[address] Lawrence Wilson Work Phone: [facility] Start: 03-15-2023 End: 03-15-[address] Lawrence Wilson Work Phone: [facility] Start: 03-11-2023 End: 03-11-[address] Lawrence Wilson Work Phone: [facility] Work Phone: Start: 03-11-2023 End: 03-11-[address] Lawrence Wilson Work Phone: [facility] Start: 12-06-2022 End: 12-06-[address] Lawrence Wilson Work Phone: [facility] Start: 12-03-2022 End: 12-03-[address] Lawrence Wilson Work Phone: [facility] Work Phone: Start: 12-03-2022 End: 12-03-[address] Lawrence Wilson Work Phone: [facility] Start: 10-08-2022 End: 10-08-[address] Lawrence Wilson Work Phone: [facility] Work Phone: Start: 10-08-2022 End: 10-08-[address] Lawrence Wilson Work Phone: [facility] Start: 08-26-2022 End: 08-26-[address] Lawrence Wilson Work Phone: [facility] Start: 08-05-2022 End: 08-05-[address] Lawrence Wilson Work Phone: [facility] Start: 08-02-2022 End: 08-02-[address] Lawrence Wilson Work Phone: [facility] Work Phone: Start: 08-02-2022 End: 08-02-[address] Lawrence Wilson Work Phone: [facility] Start: 06-08-2022 End: 06-08-[address] Lawrence Wilson Work Phone: [facility] Start: 03-22-2022 Non-patient / Non-visit Dr. Leah Wilson Work Phone: [facility] Start: 03-22-2022 End: 03-22-[address] Lawrence Wilson [facility]: [facility] Start: 03-18-2022 End: 03-18-[address] Lawrence Wilson Work Phone[facility] Start: 03-10-2022 End: 03-10-[address] Lawrence Wilson Work Phone: [facility] Start: 03-04-2022 End: 03-04-[address] Lawrence Wilson Work Phone: [facility] Start: 02-01-2022 End: 02-01-[address] Lawrence Wilson Work Phone: [facility] Start: 01-04-[address] Lawrence Wilson [facility] Phone[facility] Start: 12-21-2021 End: 12-21-[address] Lawrence Wilson [facility] Start: 12-07-2021 End: 12-07-[address] Lawrence Wilson Work Phone: [facility] Procedures Date Procedure Procedure Detail Performing Clinician Start: 03-27-2025 Assay of prostate sp ecific antigen total Dr. Lawrence Wilson MD Work Phone: Comment on above: This test was perfor med using the [employer] tPSA method. Measured values of a patient sample can vary depending on the testing procedure used. PSA values determined on patient samples by different testing procedures cannot be used interchangeably. If there is a change in PSA assays while monitoring therapy, sequential testing should be performed to confirm baseline values. Start: 02-20-[address] Lawrence Wilson MD Work Phone: Start: 02-19-2025 Coagulation time, activated Dr. Lawrence Wilson MD Work Phone: Start: 02-06-2025 X-ray of chest, PA a nd lateral views Dr. Lawrence Wilson MD Work Phone: Start: 02-01-2025 Radionuclide imaging of perfusion of myocardium under exercise stress Dr. Lawrence Wilson MD Work Phone: Start: 01-02-2025 Measurement of renal function Dr. Lawrence Wilson MD Work Phone: Comment on above: GFR Calc Start: 01-02-2025 Total iron binding capacity measurement Dr. Lawrence Wilson MD Work Phone: Start: 01-02-2025 Urnls dip stick/tabl et reagent auto microscopy Dr. Lawrence Wilson MD Work Phone: Start: 12-02-2023 Plain chest X-ray Dr. La Wilson Work Phone: Start: 09-26-2023 US scan of bladder Dr. Lawrence Wilson Work Phone: Start: 03-23-2023 Radionuclide imaging of perfusion of myocardium under exercise stress Dr. Lawrence Wilson Work Phone: Plan of Treatment Date Care Activity Detail Author Start: 02-25-2025 Patient referral [facility] Work Phone: Start: 02-20-2025 Patient discharge [facility] Start: 02-19-2025 Provision of activity privileges [facility] Start: 02-19-2025 End: 02-19-2025 [facility] Start: 02-19-2025 Assessment of risk o f venous thromboembolism [facility] Start: 02-19-2025 Insertion of cathete r into peripheral vein [facility] Start: 02-19-2025 Measuring intake and output [facility] Start: 02-19-2025 Providing care accor ding to standard [facility] Start: 02-19-2025 End: 02-19-2025 [facility] Start: 02-19-2025 Following clinical p athway protocol [facility] Start: 02-19-2025 Ambulation without limitation [facility] Start: 02-19-2025 Cardiac monitoring [facility] Start: 02-19-2025 Cardiac rehabilitation - phase 1 [facility] Start: 02-19-2025 Cardiac rehabilitation - phase 2 [facility] Start: 02-19-2025 Notification of physician [facility] Start: 02-19-2025 Oxygen therapy [facility] Start: 02-19-2025 Patient discharge [facility] Start: 02-19-2025 Systemic arterial pr essure monitoring [facility] Start: 02-19-2025 Taking patient vital signs [facility] Start: 02-19-2025 Vascular disease risk assessment [facility] Start: 02-19-2025 Vital signs measurements [facility] Start: 02-19-2025 End: 02-19-2025 [facility] Start: 02-19-2025 [facility] Catheterization of left heart [facility] Patient referral [facility] Work Phone: Prostate specific an tigen measurement [facility] Work Phone: Prostate specific an tigen measurement [facility] Prostate specific an tigen measurement [facility] Radionuclide imaging of perfusion of myocardium under exercise stress [facility] Immunizations Immunization Date Immunization Notes Care Provider Fa kylie 08-11-2021 influenza, injectabl e, quadrivalent, preservative free Dr. Lawrence Wilson Work Phone: [facility] 08-11-2021 influenza, seasonal, injectable Dr. Lawrence Wilson Work Phone: [facility] Payers Date Payer Category Payer Self-pay [id number] 2021 Unknown [id number] 2016 Medicare [id number] Unknown [id number] 2.16.8 [id number] Unknown [id number] 2.16.8 40.1.140173.3.579.2.462 Unknown [id number] 2.16.8 40.1.252815.3.579.2.462 Unknown [id number] 2.16.8 40.1.854674.3.579.2.462 Unknown [id number] 2.16.8 40.1.216106.3.579.2.462 Unknown [id number] 2.16.8 40.1.407656.3.579.2.462 Unknown [id number] 2.16.8 40.1.836401.3.579.2.462 Unknown [id number] 2.16.8 40.1.120940.3.579.2.462 Unknown [id number] 2.16.8 40.1.712424.3.579.2.462 Unknown [id number] 2.16.8 40.1.648697.3.579.2.462 Unknown [id number] 2.16.8 40.1.270879.3.579.2.462 Unknown [id number] 2.16.8 40.1.501715.3.579.2.462 Unknown [id number] 2.16.8 40.1.666551.3.579.2.462 Unknown [id number] 2.16.8 40.1.973032.3.579.2.462 Unknown [id number] 2.16.8 40.1.217530.3.579.2.462 Unknown [id number] 2.16.8 40.1.350468.3.579.2.462 Unknown [id number] 2.16.8 40.1.773668.3.579.2.462 Unknown [id number] 2.16.8 40.1.499380.3.579.2.462 Unknown [id number] 2.16.8 40.1.525672.3.579.2.462 Unknown [id number] 2.16.8 40.1.413403.3.579.2.462 Social History Date Type Detail Facility Start: 03-04-2022 End: 12-19-2023 Tobacco smoking status NHIS Unknown if ever smoked [facility] Start: 1950 Sex Assigned At Male [facility] Start: 12-19-2023 End: 02-27-2025 Tobacco smoking status NHIS Never smoked tobacco (finding) [facility] Start: 02-08-2025 End: 03-12-2025 Sex Male (finding) [facility] Medical Equipment Procedure Code Equipment Code Equipment Origin al Text Equipment Identifier Dates ([id number]) Drug-eluting coronary artery stent, bioabsorbable-polyme r-coated ()[id number] FDA Start: 08-11-2021 Drug-eluting coronary artery stent, [id number] lymer-coated ()[id number] FDA Start: 02-19-2025 Goals Date Patient Goal Desired Activity /State Functional Status Date Assessment Result Facility 02-19-2025 Functional status Ambulates [facility] Work Phone: Mental Status Date Assessment Result Facility 02-19-2025 Cognitive function Voice/Name [facility] Work Phone: Clinical Notes 07-15-2021 to 02-20-2025 Note Date & Type Note Facility 02-20-2025 Consult note [facility] 02-20-2025 Discharge summary Note Date/Time February 20, 2025 7:41am [facility] Medical Records Department [address] [place] [address] Instructions for Home/Discharge Instructions 02/20/25 0740 MR#: [id number] Acct: [id number] Name: ABRAHAN CALVERT Rep #:[id number] : 1950 74 From: Michael Freeman MD PCP: Dr. Lawrence Wilson MD Status:AD M ANGELA Discharge Instructions Diet Discharge Diet: No restrictions (You may continue your normal diet.) DC O2, CPAP, BIPAP needs Home O2 Discharge instructions: No Dressing / Incision Discharge Activity: Return to Normal Activity Lifting Restrictions: 10 pounds and also avoid any pushing or pulling for 3 daysafter your test. Additional Activity Instructions:: You must have someone drive you home. Do not drive until instructed by your doctor. You must have someone stay with you all night after your test. Rest in bed or onthe couch until the next morning. Limit the number of times you go up and down stairs the day of your test. Apply pressure to the puncture site if you sneeze or cough. Dressing / Incision Call your doctor if your incision/area has: Increased Pain/ Swelling, Increased Redness, Foul Smelling Discharge and Swelling at the incision site Call your doctor if you observe: Fever of 101 or Higher Additional Dressing/Incision Instructions:: Keep the dressing (bandage) on untilthe next morning. You may then shower, but do not take a tub bath for 5 days after your test. It is normal to have some tenderness and discomfort at the puncture site. Sometimes bruising also occurs. However, if pain, numbness, or coldness occurs below the puncture site (in your leg, toes, arms or fingers) call your doctor atonce. You may have a small, marble sized knot at the puncture site. This is normal. Donot rub it. It will go away in 4-6 weeks. Bleeding can occur from the area where the puncture was done. Blood may spurt ordrip from the site. If blood spurts, apply pressure right away to stop bleeding and call 911. Although rare, bleeding into the tissue (hematoma) can also occur.If this happens, a large, firm area "goose egg" under the skin will appear. If any of these occur, lie down as flat as you can and have someone apply firm pressure to the cath site with a gauze pad or a clean washcloth for 10-15 minutes. Call 911 or go to the Emergency Department. Follow Up Care When: Pacer clinic on June 03 at 1:30 PM. Test Results: Test results from this visit will be discussed in further detail at your follow-up appointment, if applicable. Discharge Plan Admission Admit Date/Time: 02/19/25 15:36 Attending Provider: Michael Freeman Primary Care Provider: Lawrence Wilson Discharge Orders/Prescriptions Prescriptions: New clopidogrel 75 mg Tablet 75 mg PO DAILY Qty: 90 3RF Continued losartan 50 mg tablet 50 mg PO QDAY amlodipine 2.5 mg tablet 2.5 mg PO QDAY Qty: 30 11RF Adult One Daily Multivitamin 0.4 mg tablet 1 tab PO DAILY meloxicam [Mobic] 15 mg tablet 15 mg PO DAILY aspirin [Adult Aspirin Regimen] 81 mg tablet,delayed release (DR/EC) 81 mg PO DAILY ezetimibe [Zetia] 10 mg tablet 10 mg PO DAILY tamsulosin [Flomax] 0.4 mg capsule 0.4 mg PO QHS tadalafil [Cialis] 5 mg tablet 5 mg PO DAILY PRN (Reason: sexual activity) Referrals / Follow Up: Lawrence Wilson MD [Primary Care Provider] - Disposition Disposition (needs filled in before D/C Order can be placed): Home, Self Care 02/20/25 0741<Electronically signed by Michael Freeman MD>Michael Freeman MD CC: Dr. Lawrence Wilson MD ~ Signed [facility] Work Phone: 1(255) 576-167804-09-2025 Progress note Author Michael Freeman [facility] Note Date/Time February 20, 2025 7:38 am [facility] Medical Records Department [facility] [place] [address] Progress Note - Cardiology 02/20/2536 MR#: [id number] Acct: [id number] Name: ABRAHAN CALVERT Rep #:[id number] : 1950 74 From: Michael Freeman MD PCP: Dr. Lawrence Wilson MD Status:AD [facility] Location: [place] [address] Subjective Subjective Patient seen and evaluated. No complaints other than mild right hand swelling. Objective Data Vital Signs: Vital Signs Temp Pulse Resp BP Pulse Ox O2 Del Method 97.8 F 51 L 16 140/71 H 96 Room Air 02/20/25 03:30 02/20/25 03:30 02/20/25 03:30 02/20/25 03:30 02/20/25 07:09 02/20/25 07:09 Oxygen Delivery Method Room Air Weight: 203 lb Body Mass Index (BMI) 25.3 Intake & Output: Intake and Output for Last 24 Hours 02/18/25 02/19/25 02/20/25 23:59 23:59 23:59 Intake Total 1372.5 / 1372.5 Output Total 900 / 900 Balance 472.5 / 472.5 Lab / Micro Data 02/20/25 03:50 02/20/25 03:50 Labs: Laboratory Results - last 24 hr 02/19/25 08:07: Activated Clotting Time 245 H 02/20/25 03:50: WBC 5.4, RBC 3.89 L, Hgb 11.8 L, Hct 34.9 L, MCV 89.7, MCH 30.3,MCHC 33.8, RDW Std Deviation 45.1 H, RDW Coeff of Anuj 13.8, Plt Count 215, MPV 10.4, Sodium 137, Potassium 4.2, Chloride 107, Carbon Dioxide 21.4, Anion Gap 9,BUN 23 H, Creatinine 1.07, Estim Creat Clear Calc 71.29, Est GFR (MDRD) Non-Af 72, BUN/Creatinine Ratio 21.6 H, Glucose 89, Calcium 8.7, Total Bilirubin 0.62, AST 20, ALT 18, Alkaline Phosphatase 72, Total Protein 6.3, Albumin 3.7, Globulin 2.6, Albumin/Globulin Ratio 1.4 Cardiology Labs/Tests 02/20/25 03:50: WBC 5.4, RBC 3.89 L, Hgb 11.8 L, Hct 34.9 L, MCV 89.7, MCH 30.3,MCHC 33.8, Plt Count 215, MPV 10.4, Sodium 137, Potassium 4.2, Chloride 107, Carbon Dioxide 21.4, Anion Gap 9, BUN 23 H, Creatinine 1.07, Est GFR (MDRD) Non-Af 72, BUN/Creatinine Ratio 21.6 H, Glucose 89, Calcium 8.7, Total Bilirubin 0.62 Rhythm: EKG: ECHO: Stress Test: Cardiac Cath: PCI: CT Surgery: Holter monitor: EPS: PPM: CXR: Chest CT Scan: Physical Exam Const alert, oriented x3 and no apparent distress General Appearance: cooperative HEENT hearing grossly normal bilaterally Head and Scalp: atraumatic Eyes EOMs intact bilaterally Neck General: normal visual inspection Chest inspection of chest normal and palpation of chest normal Resp normal respiratory effort Auscultation: clear to auscultation bilaterally Cardio regular rate, regular rhythm, S1 normal heart sound and S2 normal heart sound Jugular Venous Distention: JVD GI normal to inspection, nondistended, normoactive bowel sounds Extremity normal capillary refill and no pedal edema Peripheral Pulses: Yes pulses 2+ throughout and femoral pulses present Skin no rashes or lesions noted Neuro oriented x3 and CN's II-XII intact bilaterally Psych Appearance: grossly normal and appropriate Assessment & Plan Assessment/Plan (1) CAD (coronary artery disease): PLAN: Patient has known coronary disease underwent cardiac catheterization whichdemonstrated high-grade disease noted of the mid left anterior descending arteryfor which she underwent angioplasty and stenting. Patient will follow-up in ouroffice. Cardiac rehabilitation ordered. Patient has not been able to tolerate statins in the past. He is on Zetia. We will try and put him on Repatha. (2) Essential hypertension: PLAN: He will continue with aggressive risk factor modification and blood pressure treatment. 02/20/25 0738 <Electronically signed by Michael Freeman MD> Cosigner Signature (if applicable): CC: ~ Signed [facility] Work Phone: 1(368) 514-796504-09-2025 Discharge summary [facility] Medical Records Department [address] [place] [address] Instructions for Home/Discharge Instructions 02/20/25 0740 MR#: [id number] Acct: [id number] Name: ABRAHAN CALVERT Rep #:[id number] 9 : 1950 74 From: Michael Freeman MD PCP: Dr. Lawrence Wilson MD Status:AD M ANGELA Discharge Instructions Diet Discharge Diet: No restrictions (You may continue your normal diet.) DC O2, CPAP, BIPAP needs Home O2 Discharge instructions: No Dressing / Incision Discharge Activity: Return to Normal Activity Lifting Restrictions: 10 pounds and also avoid any pushing or pulling for 3 daysafter your test. Additional Activity Instructions:: You must have someone drive you home. Do not drive until instructed by your doctor. You must have someone stay with you all night after your test. Rest in bed or onthe couch until thenext morning. Limit the number of times you go up and down stairs the day of your test. Apply pressure to the puncture site if you sneeze or cough. Dressing / Incision Call your doctor if your incision/area has: Increased Pain/ Swelling, Increased Redness, Foul Smelling Discharge and Swelling at the incision site Call your doctor if you observe: Fever of 101 or Higher Additional Dressing/Incision Instructions:: Keep the dressing (bandage) on untilthe next morning. You may then shower, but do not take a tub bath for 5 days after your test. It is normal to have some tenderness and discomfort at the puncture site. Sometimes bruising also occurs. However, if pain, numbness, or coldness occurs below the puncture site (in your leg, toes, arms or fingers) call your doctor atonce. You may have a small, marble sized knot at the puncture site. This is normal. Donot rub it. It willgo away in 4-6 weeks. Bleeding can occur from the area where the puncture was done. Blood may spurt ordrip from the site.If blood spurts, apply pressure right away to stop bleeding and call 911. Although rare, bleeding into the tissue (hematoma) can also occur.If this happens, a large, firm area "goose egg" under the skin will appear. If any of these occur, lie down as flat as you can and have someone apply firm pressure to the cath site with a gauze pad or a clean washcloth for 10-15 minutes. Call [facility] Follow Up Care When: Pacer clinic on June 03 at 1:30 PM. Test Results: Test results from this visit will be discussed in further detail at your follow- up appointment, if applicable. Discharge Plan Admission Admit Date/Time: 02/19/25 15:36 Attending Provider: Michael Freeman Primary Care Provider: Lawrence Wilson Discharge Orders/Prescriptions Prescriptions: New clopidogrel 75 mg Tablet 75 mg PO DAILY Qty: 90 3RF Continued losartan 50 mg tablet 50 mg PO QDAY amlodipine 2.5 mg tablet 2.5 mg PO QDAY Qty: 30 11RF Adult One Daily Multivitamin 0.4 mg tablet 1 tab PO DAILY meloxicam [Mobic] 15 mg tablet 15 mg PO DAILY aspirin [Adult Aspirin Regimen] 81 mg tablet,delayed release (DR/EC) 81 mg PO DAILY ezetimibe [Zetia] 10 mg tablet 10 mg PO DAILY tamsulosin [Flomax] 0.4 mg capsule 0.4 mg PO QHS tadalafil [Cialis] 5 mg tablet 5 mg PO DAILY PRN (Reason: sexual activity) Referrals / Follow Up: Lawrence Wilson MD [Primary Care Provider] - Disposition Disposition (needs filled in before D/C Order can be placed): Home, Self Care 02/20/25 0741Michael Freeman MD CC: Dr. Lawrence Wilson MD ~ Signed [facility]04-09-2025 Progress note [facility] Medical Records Department [address] [place] [address] Progress Note - Cardiology 02/20/25 0736 MR#: [id number] Acct: [id number] Name: ABRAHAN CALVERT Rep #:[id number] 6 : 1950 74 From: Michael Freeman MD PCP: Dr. Lawrence Wilson MD Status:AD M [facility] Location: [place] [address] Subjective Subjective Patient seen and evaluated. No complaints other than mild right hand swelling. Objective Data Vital Signs: Vital Signs Temp Pulse Resp BP Pulse Ox O2 Del Method 97.8 F 51 L 16 140/71 H 96 Room Air 02/20/25 03:30 02/20/25 03:30 02/20/25 03:30 02/20/25 03:30 02/20/25 07:09 02/20/25 07:09 Oxygen Delivery Method Room Air Weight: 203 lb Body Mass Index (BMI) 25.3 Intake & Output: Intake and Output for Last 24 Hours 02/18/25 02/19/25 02/20/25 23:59 23:59 23:59 Intake Total 1372.5 / 1372.5 Output Total 900 / 900 Balance 472.5 / 472.5 Lab / Micro Data 02/20/25 03:50 02/20/25 03:50 Labs: Laboratory Results - last 24 hr 02/19/25 08:07: Activated Clotting Time 245 H 02/20/25 03:50: WBC 5.4, RBC 3.89 L, Hgb 11.8 L, Hct 34.9 L, MCV 89.7, MCH 30.3,MCHC 33.8, RDW Std Deviation 45.1 H, RDW Coeff of Anuj 13.8, Plt Count 215, MPV 10.4, Sodium 137, Potassium 4.2, Chloride 107, Carbon Dioxide 21.4, Anion Gap 9,BUN 23 H, Creatinine 1.07, Estim Creat Clear Calc 71.29, EstGFR (MDRD) Non-Af 72, BUN/Creatinine Ratio 21.6 H, Glucose 89, Calcium 8.7, Total Bilirubin 0.62, AST 20, ALT 18, Alkaline Phosphatase 72, Total Protein 6.3, Albumin 3.7, Globulin 2.6, Albumin/Globulin Ratio 1.4 Cardiology Labs/Tests 02/20/25 03:50: WBC 5.4, RBC 3.89 L, Hgb 11.8 L, Hct 34.9 L, MCV 89.7, MCH 30.3,MCHC 33.8, Plt Count 215, MPV 10.4, Sodium 137, Potassium 4.2, Chloride 107, Carbon Dioxide 21.4, Anion Gap 9, BUN 23 H, Creatinine 1.07, Est GFR (MDRD) Non-Af 72, BUN/Creatinine Ratio 21.6 H, Glucose 89, Calcium 8.7, Total Bilirubin 0.62 Rhythm: EKG: ECHO: Stress Test: Cardiac Cath: PCI: CT Surgery: Holter monitor: EPS: PPM: CXR: Chest CT Scan: Physical Exam Const alert, oriented x3 and no apparent distress General Appearance: cooperative HEENT hearing grossly normal bilaterally Head and Scalp: atraumatic Eyes EOMs intact bilaterally Neck General: normal visual inspection Chest inspection of chest normal and palpation of chest normal Resp normal respiratory effort Auscultation: clear to auscultation bilaterally Cardio regular rate, regular rhythm, S1 normal heart sound and S2 normal heart sound Jugular Venous Distention: JVD GI normal to inspection, nondistended, normoactive bowel sounds Extremity normal capillary refill and no pedal edema Peripheral Pulses: Yes pulses 2+ throughout and femoral pulses present Skin no rashes or lesions noted Neuro oriented x3 and CN's II-XII intact bilaterally Psych Appearance: grossly normal and appropriate Assessment & Plan Assessment/Plan (1) CAD (coronary artery disease): PLAN: Patient has known coronary disease underwent cardiac catheterization whichdemonstrated high-grade disease noted of the mid left anterior descending arteryfor which she underwent angioplasty andstenting. Patient will follow-up in ouroffice. Cardiac rehabilitation ordered. Patient has not beenable to tolerate statins in the past. He is on Zetia. We will try and put him on Repatha. (2) Essential hypertension: PLAN: He will continue with aggressive risk factor modification and blood pressure treatment. 02/20/25 0738 Cosigner Signature (if applicable): CC: ~ Signed [facility]04-08-2025 Study report [facility] Cardiac Rehab [address] [place] [address] CR: Phase I Education Summary MR#: [id number] Acct: [id number] Name: ABRAHAN CALVERT Rep #:[id number] : 1950 74 From: Oren Sultana PCP: Dr. Lawrence Wilson MD DOS: 07/08 General Education Discussed with Patient CAD and cardiac anatomy and function:: Patient communicates acknowledgment and Needs reinforcement Explanation of diagnoses and procedures:: Patient communicates acknowledgment and Needs reinforcement Sign/Symptoms of KS:: Patient communicates acknowledgment and Needs reinforcement Antiplatelet therapy: Patient communicates acknowledgment and Needs reinforcement Proper use of NTG-SL: Patient communicates acknowledgment and Needs reinforcement Emergency procedures and activation of EMS: Patient communicates acknowledgment and Needs reinforcement Compliance of all prescribed medications: Patient communicates acknowledgment and Needs reinforcement Dyslipidemia Risk Factors Patient Dyslipidemia Risk Factors Are:: Total Cholesterol, Triglycerides, HDL and LDL Recommendations Recommendations Include:: Lipid profile not available Response Code Dyslipidemia Response Code:: Patient communicates acknowledgment and Needs reinforcement Hypertension Recommendations Recommendations Include:: Maintain BP <130/85 and Decrease/maintain normal body weight Response Code Hypertension:: Patient communicates acknowledgment and Needs reinforcement Heart Disease Risk Factors Patient Heart Disease Risk Factors Are:: Previous cardiac event Recommendations Recommendations Include:: Educated family members of their risk and Educated family members of importance of prevention of heart disease Response Code Heart Disease Response Code:: Patient communicates acknowledgment and Needs reinforcement Sedentary Risk Factors Patient Sedentary Risk Factors Are:: Lack of regular exercise Recommendations Recommendations Include:: Aerobic exercise 5-7 times/week for 20-30 minutes continuously, Benefits of regular exercise, Discussed home walking program and Monitored Outpatient Cardiac Rehab Response Code Sedentary Response Code:: Patient communicates acknowledgment and Needs reinforcement 02/19/[address] Outcome assessment reviewed. Exercise plan approved as documented. Treatment plan and goals support patient needs/abilities. Continue with current plan. I certify the patient demonstrates improvement and remains willing and capable of participation. the patient continues to benefit from cardiac rehab services/training. The patient may continue at current intensity, endurance andmodality and progress per protocol. Cosigner Signature: Date CC: ~ Signed [facility]03-27-2025 Radiology Diagnostic study note [facility] Imaging Services [address] [place] [address] Chest PA and Lateral MR#: [id number] Acct: [id number] Name: ABRAHAN CALVERT Rep #: [id number] : 1950 M 74 From: Gigi Barclay MD PCP: Dr. Lawrence Wilson MD Status: RE G CLI Study:Chest PA and Lateral Date of Exam: 02/06/25 Exam# [id number] Ordering Dr: Mai Olivarez PA EXAM: X-ray chest PA and lateral CLINICAL HISTORY: Shortness of breath COMPARISON: 12/02/2023 TECHNIQUE: PA and lateral views of the chest, 2 PA views of the include the entire chest, 3total images FINDINGS: The lungs are clear. Pulmonary vascularity appears within limits. No pleural effusion. The cardiac and mediastinal contours are within limits. Atherosclerotic calcification at the aortic arch again noted. The visualized osseous structures appear within limits. RAD/Chest PA and Lateral IMPRESSION: No evidence of acute disease. Reading Location: [id number] CC: Dr. Lawrence Wilson MD; NGOC Li ~ Dynamometer Tester: Signed [facility]03-25-2025 Evaluation note* Diagnosis Onset Date Resolution Status Admit Date Abnormal stress test acute Andrew 2024 10:44am Chest pain acute February 05 10:44am Essential hypertension acute Ma rch 2024 10:44am Mixed hyperlipidemia acute Andrew h 2024 10:44am Presence of stent in coronar y artery July, acute February 05, 2025 10:44am Shortness of breath acute February 05, 2025 10:44am [facility] Work Phone: 1(187) 400-590303-25-2025 Evaluation note* Diagnosis Onset Date Resolution Status Admit Date Abnormal stress test acute Andrew h 2024 10:44am Chest pain acute February 05 10:44am Essential hypertension acute Ma rch 2024 10:44am Mixed hyperlipidemia acute Andrew h 2024 10:44am Presence of stent in coronar y artery July, acute February 05, 2025 10:44am Shortness of breath acute February 05, 2025 10:44am CAD (coronary artery disease) acute February 19, 2025 3:36pm Essential hypertension acute Ap ril 2024 3:36pm [facility] Work Phone: 1(833) 330-762603-25-2025 Evaluation note* Diagnosis Onset Date Resolution Status Admit Date Abnormal stress test acute Andrew h 2024 10:44am Chest pain acute February 05 10:44am Essential hypertension acute Ma rch 2024 10:44am Mixed hyperlipidemia acute Andrew h 2024 10:44am Presence of stent in coronar y artery July, acute February 05, 2025 10:44am Shortness of breath acute February 05, 2025 10:44am CAD (coronary artery disease) acute February 19, 2025 3:36pm Essential hypertension acute Ap ril 2024 3:36pm Essential hypertension acute Ap ril 2024 9:13am Mixed hyperlipidemia acute Apri l 2024 9:13am Presence of stent in coronar y artery July, acute March 01, 2025 9:13am [facility] Work Phone: 1(842) 744-754203-25-2025 Evaluation note* Diagnosis Onset Date Resolution Status Admit Date Abnormal stress test acute Andrew h 2024 10:44am Chest pain acute February 05 10:44am Essential hypertension acute Ma rch 2024 10:44am Mixed hyperlipidemia acute Andrew h 2024 10:44am Presence of stent in coronar y artery March 25, 2025 acute February 05, 2025 10:44am Shortness of breath acute February 05, 2025 10:44am CAD (coronary artery disease) acute February 19, 2025 3:36pm Essential hypertension acute Ap ril 2024 3:36pm Essential hypertension acute Ap ril 2024 9:13am Mixed hyperlipidemia acute Apri l 2024 9:13am Presence of stent in coronar y artery March 25, 2025 acute March 01, 2025 9:13am [facility] Work Phone: 1(294) 939-773503-25-2025 Evaluation note* Diagnosis Onset Date Resolution Status Admit Date Abnormal stress test acute Andrew h 2024 10:44am Chest pain acute February 05 10:44am Essential hypertension acute Ma rch 2024 10:44am Mixed hyperlipidemia acute Andrew h 2024 10:44am Presence of stent in coronar y artery March 25, 2025 acute February 05, 2025 10:44am Shortness of breath acute February 05, 2025 10:44am CAD (coronary artery disease) acute February 19, 2025 3:36pm Essential hypertension acute Ap ril 2024 3:36pm Essential hypertension acute Ap ril 2024 9:13am Mixed hyperlipidemia acute Apri l 2024 9:13am Presence of stent in coronar y artery March 25, 2025 acute March 01, 2025 9:13am History of prostate cancer February 19, 2025 acut e March 29, 2025 8:37am [facility] Work Phone: 1([phone]) 187-826909-01-2021 Evaluation note* Diagnosis Onset Date Resolution Status History of prostate cancer a cute Atherosclerotic heart diseas e of [place] coronary artery without angina pectoris acute Mixed hyperlipidemia acute Presence of stent in coronary artery July, acute [facility] Work Phone: 1(810) 795-244509-01-2021 Evaluation note* Diagnosis Onset Date Resolution Status Atherosclerotic heart diseas e of [place] coronary artery without angina pectoris acute Mixed hyperlipidemia acute Presence of stent in coronary artery July, acute History of prostate cancer a [facility] Work Phone: 1(544) 954-461309-01-2021 Evaluation note* Diagnosis Onset Date Resolution Status History of prostate cancer a cute Mixed hyperlipidemia acute Presence of stent in coronary artery July, [facility] Work Phone: 1(545) 218-201709-01-2021 Evaluation note* Diagnosis Onset Date Resolution Status History of prostate cancer a cute Mixed hyperlipidemia acute Presence of stent in coronary artery July, acute History of prostate cancer a [facility] Work Phone: 1(984) 954-849609-01-2021 Evaluation note* Diagnosis Onset Date Resolution Status Mixed hyperlipidemia acute Presence of stent in coronary artery July, [facility] Work Phone: Consult note Author Es Gavin [facility] Note Date/Time February 20, 2025 10:5 0am [facility] Medical Records Department [address] [place] [address] Counseling Note - Pharmacy 02/20/25 1050 MR#: [id number] Acct: [id number] Name: ABRAHAN CALVERT Rep #:[id number] : 1950 74 From: Es Gavin PCP: Dr. Lawrence Wilson MD Status:AD M ANGELA Y Location: [place] [address] Pharmacy [facility] Pharmacy Service has performed discharge medication reconciliation and counseling for this patient. 1. CLOPIDOGREL 75MG PO DAILY The patient's discharge medication list was reviewed for discrepancies and discrepancies were resolved. The patient was counseled on the following discharge medications and changes in medications for homegoing were reviewed. The Reason for Use, instructions for use, and potential side effects were reviewed for all new medications. The patient's questions regarding all of their medications were answered. The patient was able to verbally demonstrate an understanding of their dischargemedications. Medications at Discharge Home Medications aspirin 81 mg tablet,delayed release (Adult Aspirin Regimen) 81 mg PO DAILY 04/28/21 ezetimibe 10 mg tablet (Zetia) 10 mg PO DAILY 04/28/21 meloxicam 15 mg tablet (Mobic) 15 mg PO DAILY 04/28/21 multivitamin with minerals-folic acid 0.4 mg tablet (Adult One Daily Multivitamin) 1 tab PO DAILY 04/28/21 tamsulosin 0.4 mg capsule (Flomax) 0.4 mg PO QHS 04/28/21 tadalafil 5 mg tablet (Cialis) 5 mg PO DAILY PRN sexual activity 03/04/22 amlodipine 2.5 mg tablet 2.5 mg PO QDAY #30 tabs 02/05/25 losartan 50 mg tablet 50 mg PO QDAY 02/05/25 clopidogrel 75 mg tablet 75 mg PO DAILY #90 tabs 02/20/25 02/20/25 1050 <Electronically signed by Es Gavin> Date _ Es Gavin Cosigner Signature (if applicable): Date CC: ~ Signed [facility] Work Phone: Evaluation note* Diagnosis Onset Date Resolution Status [facility] of [facility] cancer [facility] Atherosclerotic heart diseas e of [place] coronary artery without angina pectoris acute Bilateral carotid artery disease acute Dizziness acute Mixed hyperlipidemia acute Presence of stent in coronary artery July, [facility] Work Phone: Evaluation note* Diagnosis Onset Date Resolution Status History of prostate cancer a [facility] Work Phone: Reason for referral (narrative)No reason for referral information [facility] Work Phone: Chief Complaint and Reason for Visit Chief Complaint CAROTID STENOSIS TRANSFER FROM DR GARCIA/ PROSTATE CT FU PALPITATIONS Reason for Visit History of prostate cancer Atherosclerotic heart disease of [place] coronary artery without angina pectoris Bilateral carotid artery disease Dizziness Mixed hyperlipidemia Presence of stent in coronary artery Chief Complaint CAROTID STENOSIS TRANSFER FROM DR GARCIA/ PROSTATE CT FU PALPITATIONS DIZZINESS AND GIDDINESS OCCLUSION AND STENOSIS OF BILATERAL CAROTID ARTERI Reason for Visit History of prostate cancer Atherosclerotic heart disease of [place] coronary artery without angina pectoris Bilateral carotid artery disease Dizziness Mixed hyperlipidemia Presence of stent in coronary artery Chief Complaint EORDER FOLLOWUP PROSTATE Reason for Visit History of prostate cancer Chief Complaint EORDER FOLLOWUP PROSTATE 6 M FU Reason for Visit History of prostate cancer Atherosclerotic heart disease of [place] coronary artery without angina pectoris Mixed hyperlipidemia Presence of stent in coronary artery Chief Complaint 6 M FU EORDER 4 month f/u Reason for Visit Atherosclerotic hear t disease of [place] coronary artery without angina pectoris Mixed hyperlipidemia Presence of stent in coronary artery History of prostate cancer Chief Complaint EORDER 4 month f/u EORDER 6 M FU Reason for Visit History of prostate cancer Mixed hyperlipidemia Presence of stent in coronary artery Chief Complaint EORDER 4 month f/u EORDER 6 M FU 3 month f/u PSA prior CP CP Reason for Visit History of prostate cancer Mixed hyperlipidemia Presence of stent in coronary artery History of prostate cancer Chief Complaint EORDER FROM DR ARIEL SOARES,NEED ORDER FROM DR PERRY 6 month f/u prostate - PSA prior Reason for Visit History of prostate cancer Chief Complaint EORDER FROM DR ARIEL SOARES,NEED ORDER FROM DR PERRY 6 month f/u prostate - PSA prior URINARY RETENTION Reason for Visit History of prostate cancer Chief Complaint EORDER FROM DR ARIEL SOARES,NEED ORDER FROM DR PERRY 6 month f/u prostate - PSA prior URINARY RETENTION 9 M FU Reason for Visit History of prostate cancer Mixed hyperlipidemia Presence of stent in coronary artery Chief Complaint 9 M FU OCCLUSION STENOSIS CAROTID ARTERIES Reason for Visit Mixed hyperlipidemia Presence of stent in coronary artery Chief Complaint Admit Date SOB ON EXERTION February 01, 2025 6:2 5am SOB ON EXERTION February 01, 2025 9:0 3am POSITIVE STRESS PER [place] February 05, 2025 10:44am SOB- [facility] February 06 10:23am Reason for Visit Admit Date Abnormal stress test February 05, 2025 10 :44am Chest pain February 05, 2025 10: 44am Essential hypertension February 05, 2025 10:44am Mixed hyperlipidemia February 05, 2025 10 :44am Presence of stent in coronary artery Mar 2024 10:44am Shortness of breath February 05, 2025 10: 44am Chief Complaint Admit Date SOB ON EXERTION February 01, 2025 6:2 5am SOB ON EXERTION February 01, 2025 9:0 3am POSITIVE STRESS PER [place] February 05, 2025 10:44am SOB- [facility] February 06 10:23am ABN STRESS TEST, CP February 19, 2025 3:36 pm ABN STRESS TEST, CP February 20, 2025 7:36 am Reason for Visit Admit Date Abnormal stress test February 05, 2025 10 :44am Chest pain February 05, 2025 10: 44am Essential hypertension February 05, 2025 10:44am Mixed hyperlipidemia February 05, 2025 10 :44am Presence of stent in coronary artery [facility] 2024 10:44am Shortness of breath February 05, 2025 10: 44am CAD (coronary artery disease) February 19, 2025 3:36pm Essential hypertension February 19, 2025 3 :36pm Chief Complaint Admit Date SOB ON EXERTION February 01, 2025 6:2 5am SOB ON EXERTION February 01, 2025 9:0 3am CAROTIS STENOSIS February 01, 2025 9:1 7am POSITIVE STRESS PER [place] February 05, 2025 10:44am SOB- [facility] February 06 10:23am ABN STRESS TEST, CP February 19, 2025 3:36 pm ABN STRESS TEST, CP February 20, 2025 7:36 am Referral Order February 22, 2025 4:3 5pm PCI w/ stenting February 27, 2025 7:5 6am Chief Complaint Admit Date SOB ON EXERTION February 01, 2025 6:2 5am SOB ON EXERTION February 01, 2025 9:0 3am CAROTIS STENOSIS February 01, 2025 9:1 7am POSITIVE STRESS PER [place] February 05, 2025 10:44am SOB- [facility] February 06 10:23am ABN STRESS TEST, CP February 19, 2025 3:36 pm ABN STRESS TEST, CP February 20, 2025 7:36 am Referral Order February 22, 2025 4:3 5pm PCI w/ stenting February 27, 2025 7:5 6am 1 WK FU POST CATH March 01, 2025 9:1 3am PCI with stenting March 11, 2025 8:0 0am Reason for Visit Admit Date Abnormal stress test February 05, 2025 10 :44am Chest pain February 05, 2025 10: 44am Essential hypertension February 05, 2025 10:44am Mixed hyperlipidemia February 05, 2025 10 :44am Presence of stent in coronary artery [facility] 2024 10:44am Shortness of breath February 05, 2025 10: 44am CAD (coronary artery disease) February 19, 2025 3:36pm Essential hypertension February 19, 2025 3 :36pm Essential hypertension March 01, 2025 9:13am Mixed hyperlipidemia March 01, 2025 9: 13am Presence of stent in coronary artery Apr 2024 9:13am Chief Complaint Admit Date SOB ON EXERTION February 01, 2025 6:2 5am SOB ON EXERTION February 01, 2025 9:0 3am CAROTIS STENOSIS February 01, 2025 9:1 7am POSITIVE STRESS PER [place] February 05, 2025 10:44am SOB- [facility] February 06 10:23am ABN STRESS TEST, CP February 19, 2025 3:36 pm ABN STRESS TEST, CP February 20, 2025 7:36 am Referral Order February 22, 2025 4:3 5pm PCI w/ stenting February 27, 2025 7:5 6am 1 WK FU POST CATH March 01, 2025 9:1 3am PCI with stenting March 13, 2025 8:0 0am EORDER- PSA March 27, 2025 10:03 am PCI with stenting March 29, 2025 8:00a m 6 MONTH PROSTATE March 29, 2025 8:37a m Reason for Visit Admit Date Abnormal stress test February 05, 2025 10 :44am Chest pain February 05, 2025 10: 44am Essential hypertension February 05, 2025 10:44am Mixed hyperlipidemia February 05, 2025 10 :44am Presence of stent in coronary artery Mar 2024 10:44am Shortness of breath February 05, 2025 10: 44am CAD (coronary artery disease) February 19, 2025 3:36pm Essential hypertension February 19, 2025 3 :36pm Essential hypertension March 01, 2025 9:13am Mixed hyperlipidemia March 01, 2025 9: 13am Presence of stent in coronary artery Apr 2024 9:13am History of prostate cancer March 29 8:37am Chief Complaint Admit Date SOB ON EXERTION February 01, 2025 6:2 5am SOB ON EXERTION February 01, 2025 9:0 3am CAROTIS STENOSIS February 01, 2025 9:1 7am POSITIVE STRESS PER [place] February 05, 2025 10:44am SOB- [facility] February 06 10:23am ABN STRESS TEST, CP February 19, 2025 3:36 pm ABN STRESS TEST, CP February 20, 2025 7:36 am Referral Order February 22, 2025 4:3 5pm PCI w/ stenting February 27, 2025 7:5 6am 1 WK FU POST CATH March 01, 2025 9:1 3am PCI with stenting March 13, 2025 8:0 0am EORDER- PSA March 27, 2025 10:03 am 6 MONTH PROSTATE March 29, 2025 8:37a m PCI with stenting April 12, 2025 8:00a m Chief Complaint Admit Date SOB ON EXERTION February 01, 2025 6:2 5am SOB ON EXERTION February 01, 2025 9:0 3am CAROTIS STENOSIS February 01, 2025 9:1 7am POSITIVE STRESS PER [place] February 05, 2025 10:44am SOB- [facility] February 06 10:23am ABN STRESS TEST, CP February 19, 2025 3:36 pm ABN STRESS TEST, CP February 20, 2025 7:36 am Referral Order February 22, 2025 4:3 5pm PCI w/ stenting February 27, 2025 7:5 6am 1 WK FU POST CATH March 01, 2025 9:1 3am PCI with stenting March 13, 2025 8:0 0am EORDER- PSA March 27, 2025 10:03 am 6 MONTH PROSTATE March 29, 2025 8:37a m PCI with stenting April 12, 2025 8:00a m PCI with stenting May 13, 2025 8:00 am Advance Directives No Advanced Directives Records Found Advance Directive Response Recorded Date/ Time Advance Directives Yes July 8:23am Living Will Yes August 11, 2021 11:22am Power of Coremaking Machine Operator Yes July 11:22am Advance Directive Response Recorded Date/ Time Advance Directives Yes July 7:23am Living Will Yes August 11, 2021 10:22am Power of [place] Machine Operator Yes July 10:22am Advance Directive Response Recorded Date/ Time Advance Directives Yes July 8:23am Advance Directive Response Recorded Date/ Time Advance Directives on File Yes February 19, 2025 7:19am Living Will Yes February 19, 2025 7:19am Do you have a Healthcare Power of Coremaking Machine Operator? Yes February 19, 2025 7:19am Name of Medical Power of Coremaking Machine Operator rosamaria calvert February 19, 2025 7:19am Advance Directives Yes February 19 7:19am Advance Directive Response Recorded Date/ Time Advance Directives on File Yes February 27, 2025 8:22am Living Will Yes February 27, 2025 8:22am Do you have a Healthcare Power of Coremaking Machine Operator? Yes February 27, 2025 8:22am Advance Directives on File Yes February 19, 2025 7:19am Living Will Yes February 19, 2025 7:19am Do you have a Healthcare Power of Coremaking Machine Operator? Yes February 19, 2025 7:19am Name of Medical Power of Coremaking Machine Operator rosamaria calvert February 19, 2025 7:19am Advance Directives Yes February 19 7:19am Summary Purpose Family History No Family History Records Found Additional Source Comments Goals (unrecognized section and content) Goals may be documented in a n alternate sectionGoals may be documented in an alternate sectionGoals may be documented in an alternate sectionGoals may be documented in an alternate sectionGoals may be documented in an alternate sectionGoals may be documented in an alternate sectionGoals may be documented in an alternate sectionGoals may be documented in an alternate sectionGoals may be documented in an alternate sectionGoals may be documented in an alternate sectionGoals may be documented in an alternate sectionGoals may be documented in an alternate sectionGoals may be documented in an alternate section Care Teams (unrecognized sec tion and content) Team Status: Active Member Role Status Dates Dr. Lawrence Wilson MD Family Provider Active Dr. Lawrence Wilson MD Primary Care Provider Active Team Status: Inactive Member Role Status Dates Dr. Lawrence Wilson MD Primary Care Provider, Referr ing Provider Active Mai Rock PA, PA Attending Provider Active Team Status: Inactive Member Role Status Dates Dr. Lawrence Wilson MD Primary Care Provider, Referr ing Provider Active Dr. Tucker Perry DO Attending Provider Active Team Status: Inactive Member Role Status Dates Dr. Lawrence Wilson MD Primary Care Pr ovider, Attending Provider, Referring Provider Active Team Status: Inactive Member Role Status Dates Dr. Lawrence Wilson MD Primary Care Provider Active Dr. Tucker Perry DO Attending Provider, Referring P ricardo Active Team Status: Inactive Member Role Status Dates Dr. Lawrence Wilson MD Primary Care Pr ovider, Attending Provider, Referring Provider Active Dr. Tucker Perry DO Other Provider Active Team Status: Active Member Role Status Dates Dr. Lawrence Wilson MD Primary Care Provider Active Mai Rock PA, PA Referring Provider, Other Provider Active Dr. Michael Freeman MD Attending Provider Active Team Status: Inactive Member Role Status Dates Dr. Lawrence Wilson MD Primary Care Provider Active Mai Rock PA, PA Attending Provider, Referr ing Provider Active Team Status: Inactive Member Role Status Dates Dr. Lawrence Wilson MD Primary Care Provider Active Dr. Tong Reid MD Attending Provider, Referrin g Provider Active Team Status: Inactive Member Role Status Dates Dr. Lawrence Wilson MD Primary Care Provider, Attend ing Provider Active Team Status: Active Member Role Status Dates Dr. Lawrence Wilson MD Primary Care Provider, Referr ing Provider Active Dr. Jony Sosa MD Attending Provider Active Team Status: Active Member Role Status Dates Dr. Lawrence Wilson MD Primary Care Provider Active Team Status: Inactive Member Role Status Dates Dr. Lawrence Wilson MD Primary Care Provider Active Start: January 02, 2025 End: January 02, 2025 Dr. Lawrence Wilson MD Attending Provider Active Start: January 02, 2025 End: January 02, 2025 Dr. Lawrence Wilson MD Referring Provider Active Start: January 02, 2025 End: January 02, 2025 Team Status: Inactive Member Role Status Dates Dr. Lawrence Wilson MD Primary Care Provider Active Start: February 01, 2025 End: February 01, 2025 Dr. Lawrence Wilson MD Attending Provider Active Start: February 01, 2025 End: February 01, 2025 Dr. Lawrence Wilson MD Referring Provider Active Start: February 01, 2025 End: February 01, 2025 Team Status: Active Member Role Status Dates Dr. Lawrence Wilson MD Primary Care Provider Active Start: February 01, 2025 Dr. Lawrence Wilson MD Referring Provider Active Start: February 01, 2025 Dr. Lawrence Wilson MD Other Provider Active S tart: February 01, 2025 Dr. Michael Freeman MD Attending Provider Active S tart: February 01, 2025 Team Status: Inactive Member Role Status Dates Dr. Lawrence Wilson MD Primary Care Provider Active Start: February 05, 2025 End: February 05, 2025 Dr. Lawrence Wilson MD Referring Provider Active Start: February 05, 2025 End: February 05, 2025 Mai Rock PA, PA Attending Provider Active Start: February 05, 2025 End: February 05, 2025 Team Status: Active Member Role Status Dates Dr. Lawrence Wilson MD Primary Care Provider Active Start: February 06, 2025 Mai Rock PA, PA Attending Provider Active Start: February 06, 2025 Mai Rock PA, PA Referring Provider Active Start: February 06, 2025 Team Status: Inactive Member Role Status Dates Dr. Lawrence Wilson MD Primary Care Provider Active Start: February 06, 2025 End: February 06, 2025 Mai Rock PA, PA Attending Provider Active Start: February 06, 2025 End: February 06, 2025 Mai Rcok PA, PA Referring Provider Active Start: February 06, 2025 End: February 06, 2025 Team Status: Inactive Member Role Status Dates Dr. Lawrence Wilson MD Primary Care Provider Active Start: February 19, 2025 End: February 20, 2025 Dr. Michael Freeman MD Admit Provider Active Start : February 19, 2025 End: February 20, 2025 Dr. Michael Freeman MD Attending Provider Active S tart: February 19, 2025 End: February 20, 2025 Dr. Michael Freeman MD Referring Provider Active S tart: February 19, 2025 End: February 20, 2025 Team Status: Active Member Role Status Dates Dr. Lawrence Wilson MD Primary Care Provider Active Start: February 20, 2025 Dr. Michael Freeman MD Admit Provider Active Start : February 20, 2025 Dr. Michael Freeman MD Attending Provider Active S tart: February 20, 2025 Dr. Michael Freeman MD Referring Provider Active S tart: February 20, 2025 Dr. Michael Freeman MD Other Provider Active Start : February 20, 2025 Team Status: Active Member Role Status Dates Dr. Tremayne Loyola MD Attending Provider Active Start: February 01, 2025 Dr. Lawrence Wilson MD Referring Provider Active Start: February 01, 2025 Team Status: Active Member Role Status Dates Dr. Lawrence Wilson MD Primary Care Provider Active Start: February 22, 2025 Dr. Maged Watts MD Attending Provider Active Start: February 22, 2025 Team Status: Inactive Member Role Status Dates Dr. Lawrence Wilson MD Primary Care Provider Active Start: February 27, 2025 End: February 27, 2025 Dr. Maged Watts MD Attending Provider Active Start: February 27, 2025 End: February 27, 2025 Dr. Maged Watts MD Referring Provider Active Start: February 27, 2025 End: February 27, 2025 Team Status: Inactive Member Role Status Dates Dr. Lawrence Wilson MD Primary Care Provider Active Start: March 01, 2025 End: March 01, 2025 Dr. Lawrence Wilson MD Referring Provider Active Start: March 01, 2025 End: March 01, 2025 Nessa Melissa NETTING INSPECTOR, NETTING INSPECTOR-C Attending Provider Active Start: March 01, 2025 End: March 01, 2025 Team Status: Inactive Member Role Status Dates Dr. Lawrence Wilson MD Primary Care Provider Active Start: March 07, 2025 End: March 07, 2025 Dr. Lawrence Wilson MD Attending Provider Active Start: March 07, 2025 End: March 07, 2025 Dr. Lawernce Wilson MD Referring Provider Active Start: March 07, 2025 End: March 07, 2025 Team Status: Active Member Role Status Dates Dr. Lawrence Wilson MD Primary Care Provider Active Start: March 11, 2025 Dr. Maged Watts MD Attending Provider Active Start: March 11, 2025 Dr. Maged Watts MD Referring Provider Active Start: March 11, 2025 Team Status: Inactive Member Role Status Dates Dr. Lawrence Wilson MD Primary Care Provider Active Start: March 13, 2025 End: March 13, 2025 Dr. Maged Watts MD Attending Provider Active Start: March 13, 2025 End: March 13, 2025 Dr. Maged Watts MD Referring Provider Active Start: March 13, 2025 End: March 13, 2025 Team Status: Active Member Role Status Dates Dr. Lawrence Wilson MD Primary Care Provider Active Start: March 27, 2025 Dr. Tucker Perry DO Attending Provider Active Start: March 27, 2025 Dr. Tucker Perry DO Referring Provider Active Start: March 27, 2025 Team Status: Active Member Role Status Dates Dr. Lawrence Wilson MD Primary Care Provider Active Start: March 29, 2025 Dr. Maged Watts MD Attending Provider Active Start: March 29, 2025 Dr. Maged Watts MD Referring Provider Active Start: March 29, 2025 Team Status: Inactive Member Role Status Dates Dr. Lawrence Wilson MD Primary Care Provider Active Start: March 29, 2025 End: March 29, 2025 Dr. Lawrence Wilson MD Referring Provider Active Start: March 29, 2025 End: March 29, 2025 Dr. Tucker Perry DO Attending Provider Active Start: March 29, 2025 End: March 29, 2025 Team Status: Inactive Member Role Status Dates Dr. Lawrence Wilson MD Primary Care Provider Active Start: March 27, 2025 End: March 27, 2025 Dr. Tucker Perry DO Attending Provider Active Start: March 27, 2025 End: March 27, 2025 Dr. Tucker Perry DO Referring Provider Active Start: March 27, 2025 End: March 27, 2025 Team Status: Inactive Member Role Status Dates Dr. Lawrence Wilson MD Primary Care Provider Active Start: April 12, 2025 End: April 13, 2025 Dr. Maged Watts MD Attending Provider Active Start: April 12, 2025 End: April 13, 2025 Dr. Maged Watts MD Referring Provider Active Start: April 12, 2025 End: April 13, 2025 Team Status: Active Member Role/Relationship Status Dates Dr. Lawrence Wilson MD Primary Care Provider Active Team Status: Inactive Member Role/Relationship Status Dates Dr. Lawrence Wilson MD Primary Care Provider Active Start: February 01, 2025 End: February 01, 2025 Dr. Lawrence Wilson MD Attending Provider Active Start: February 01, 2025 End: February 01, 2025 Dr. Lawrence Wilson MD Referring Provider Active Start: February 01, 2025 End: February 01, 2025 Team Status: Active Member Role/Relationship Status Dates Dr. Lawrence Wilson MD Primary Care Provider Active Start: February 01, 2025 Dr. Lawrence Wilson MD Referring Provider Active Start: February 01, 2025 Dr. Lawrence Wilson MD Other Provider Active S tart: February 01, 2025 Dr. Michael Freeman MD Attending Provider Active S tart: February 01, 2025 Team Status: Active Member Role/Relationship Status Dates Dr. Tremayne Loyola MD Attending Provider Active Start: February 01, 2025 Dr. Lawrence Wilson MD Referring Provider Active Start: February 01, 2025 Team Status: Inactive Member Role/Relationship Status Dates Dr. Lawrence Wilson MD Primary Care Provider Active Start: February 05, 2025 End: February 05, 2025 Dr. Lawrence Wilson MD Referring Provider Active Start: February 05, 2025 End: February 05, 2025 Mai GROSSMAN, PA Attending Provider Active Start: February 05, 2025 End: February 05, 2025 Team Status: Inactive Member Role/Relationship Status Dates Dr. Lawrence Wilson MD Primary Care Provider Active Start: February 06, 2025 End: February 06, 2025 Mai Rock PA, PA Attending Provider Active Start: February 06, 2025 End: February 06, 2025 Mai Rock PA, PA Referring Provider Active Start: February 06, 2025 End: February 06, 2025 Team Status: Inactive Member Role/Relationship Status Dates Dr. Lawrence Wilson MD Primary Care Provider Active Start: February 19, 2025 End: February 20, 2025 Dr. iMchael Freeman MD Admit Provider Active Start : February 19, 2025 End: February 20, 2025 Dr. Michael Freeman MD Attending Provider Active S tart: February 19, 2025 End: February 20, 2025 Dr. Michael Freeman MD Referring Provider Active S tart: February 19, 2025 End: February 20, 2025 Team Status: Active Member Role/Relationship Status Dates Dr. Lawrence Wilson MD Primary Care Provider Active Start: February 20, 2025 Dr. Michael Freeman MD Admit Provider Active Start : February 20, 2025 Dr. Michael Freeman MD Attending Provider Active S tart: February 20, 2025 Dr. Michael Freeman MD Referring Provider Active S tart: February 20, 2025 Dr. Michael Freeman MD Other Provider Active Start : February 20, 2025 Team Status: Active Member Role/Relationship Status Dates Dr. Lawrence Wilson MD Primary Care Provider Active Start: February 22, 2025 Dr. Maged Watts MD Attending Provider Active Start: February 22, 2025 Team Status: Inactive Member Role/Relationship Status Dates Dr. Lawrence Wilson MD Primary Care Provider Active Start: February 27, 2025 End: February 27, 2025 Dr. Maged Watts MD Attending Provider Active Start: February 27, 2025 End: February 27, 2025 Dr. Maged Watts MD Referring Provider Active Start: February 27, 2025 End: February 27, 2025 Team Status: Inactive Member Role/Relationship Status Dates Dr. Lawrence Wilson MD Primary Care Provider Active Start: March 01, 2025 End: March 01, 2025 Dr. Lawrence Wilson MD Referring Provider Active Start: March 01, 2025 End: March 01, 2025 Nessa Melissa NETTING INSPECTOR, NETTING INSPECTOR-C Attending Provider Active Start: March 01, 2025 End: March 01, 2025 Team Status: Inactive Member Role/Relationship Status Dates Dr. Lawrence Wilson MD Primary Care Provider Active Start: March 07, 2025 End: March 07, 2025 Dr. Lawrence Wilson MD Attending Provider Active Start: March 07, 2025 End: March 07, 2025 Dr. Lawrence Wilson MD Referring Provider Active Start: March 07, 2025 End: March 07, 2025 Team Status: Inactive Member Role/Relationship Status Dates Dr. Lawrence Wilson MD Primary Care Provider Active Start: March 13, 2025 End: March 13, 2025 Dr. Maged Watts MD Attending Provider Active Start: March 13, 2025 End: March 13, 2025 Dr. Maged Watts MD Referring Provider Active Start: March 13, 2025 End: March 13, 2025 Team Status: Inactive Member Role/Relationship Status Dates Dr. Lawrence Wilson MD Primary Care Provider Active Start: March 27, 2025 End: March 27, 2025 Dr. Tucker Perry DO Attending Provider Active Start: March 27, 2025 End: March 27, 2025 Dr. Tucker Perry DO Referring Provider Active Start: March 27, 2025 End: March 27, 2025 Team Status: Inactive Member Role/Relationship Status Dates Dr. Lawrence Wilson MD Primary Care Provider Active Start: March 29, 2025 End: March 29, 2025 Dr. Lawrence Wilson MD Referring Provider Active Start: March 29, 2025 End: March 29, 2025 Dr. Tucker Perry DO Attending Provider Active Start: March 29, 2025 End: March 29, 2025 Team Status: Inactive Member Role/Relationship Status Dates Dr. Lawrence Wilson MD Primary Care Provider Active Start: April 12, 2025 End: April 13, 2025 Dr. Maged Watts MD Attending Provider Active Start: April 12, 2025 End: April 13, 2025 Dr. Maged Watts MD Referring Provider Active Start: April 12, 2025 End: April 13, 2025 Team Status: Inactive Member Role/Relationship Status Dates Dr. Lawrence Wilson MD Primary Care Provider Active Start: May 13, 2025 End: May 13, 2025 Dr. Maged Watts MD Attending Provider Active Start: May 13, 2025 End: May 13, 2025 Dr. Maged Watts MD Referring Provider Active Start: May 13, 2025 End: May 13, 2025 (unrecognized sect ion and content) No Status Records Found INFORMATION SOURCE (unrecogn ized section and content) DATE CREATED AUTHOR 06/01/2025 [facility] FOR RECORDS PERTAINING TO PATIENTS WHO ARE OR HAVE BEEN ENROLLED IN A CHEMICAL DEPENDENCY/SUBSTANCEABUSE PROGRAM, SOME INFORMATION MAY BE OMITTED. This clinical summary was aggregated from multiple sources. Caution should be exercised in using it in the provision of clinical care. This summary normalizes information from multiple sources, and as a consequence, information in this document may materially change the coding, format and clinical context of patient data. In addition, data may be omitted in some cases. CLINICAL DECISIONS SHOULD BE BASED ON THE PRIMARY CLINICAL RECORDS. [facility]. provides no warranty or guarantee of the accuracy or completeness of information in this document.
== END | disposition home or self-care (01) ==
LOC: CVS 13:46
PROVIDERS: PCP Family Medicine; Referring Provider Family Medicine; Visit Provider Family Medicine
DX: M79.89 Other specified soft tissue disorders (principal)
CPT/HCPCS: 93971

== ENCOUNTER → 2025-07-08 | Outpatient (CLI) | payer MEDICARE, OTHER, SELFPAY ==
[2025-05-24 07:20] VITALS: BMI 25.3
[2025-07-08 11:01] LABS: Hematocrit 38.5 % (40-54); Hemoglobin 12.9 g/dL (13.0-16.5); Immature Granulocytes Count 0.000 X10^3/uL (0.0-0.0); Mean Corp Hgb Conc 33.5 g/dL (32-36); Mean Corpuscular Volume 89.5 fL (80-94); Mean Platelet Vol. 10.8 fl (6.2-12.0); NRBC Flagged by Analyzer 0 % (0-5); Platelet Count 227 K/mm3 (150-450); RBC Distribution Width CV 13.6 % (11.6-14.6); RBC Distribution Width SD 44.6 fl (35.1-43.9); Red Blood Count 4.30 M/mm3 (4.6-6.2); White Blood Count 4.6 K/mm3 (4.4-11.0)
[2025-07-08 11:39] LABS: AST(SGOT) 23 U/L (<=37); Alanine Aminotransfer ALT/SGPT 20 U/L (<=46); Albumin, Serum 4.2 g/dL (3.4-4.8); Alkaline Phosphatase 76 U/L (40-129); Anion Gap 12 (5-15); BUN 32 mg/dL (4-19); BUN/Creat Ratio 27.7 RATIO (10-20); Calcium,Total 9.1 mg/dL (7.6-11.0); Carbon Dioxide 22.3 mmol/L (21.0-32.0); Chloride 105 mmol/L (98-108); Cholesterol 220 mg/dL (<=200); Globulin 2.8 g/dL (2.2-4.2); Glucose 91 mg/dL (70-99); Low Density Lipoprotein Calc. 142 mg/dL; PSA,Total- Diagnostic 0.69 ng/mL (0.00-4.00); Potassium 4.3 mmol/L (3.3-5.1); Triglycerides 139 mg/dL; Very Low Density Lipoprotein 28 mg/dL (5-40); cholesterol:hdl ratio screen 4.39
[2025-07-09 13:22] LABS: Ferritin 66 ng/mL (37-417); Iron 55 ug/dL (65-175); Iron Binding Capacity,Total 304 ug/dL (250-450); Iron Binding Capacity,Unsat 249 ug/dL (228-428); Vitamin B12 657 pg/mL (180-914)
== END | disposition home or self-care (01) ==
LOC: MTLAB 07:52
PROVIDERS: PCP Family Medicine; Referring Provider Family Medicine; Visit Provider Family Medicine
DX: D64.9 Anemia, unspecified (principal); E78.5 Hyperlipidemia, unspecified; Z85.46 Personal history of malignant neoplasm of prostate
CPT/HCPCS: 36415; 80053; 80061; 82607; 82728; 83540; 83550; 84153; 85025

== ENCOUNTER → 2025-07-19 | Outpatient (CLI) | payer MEDICARE, OTHER, SELFPAY ==
[2025-05-24 07:20] VITALS: BMI 25.3
--- NOTE | 2025-07-19 12:38 | US_ITS ---
PROCEDURE: EXT NON VASC LIMITED/SOFT TISS 07/19/2025 REASON FOR EXAM: LOCALIZED SWELLING, MASS AND LUMP, RIGHT LOWER LIMB TECHNIQUE: Procedure Code: [id number] Modality: US Procedure: EXT NON VASC LIMITED/SOFT TISS COMPARISON: None. FINDINGS: Edematous tissue with some anechoic areas seen at the area of palpable lump. The area measures 11.6 x 4.9 x 1.2 cm in total. US/Ext Non Vasc Limited/Soft Tiss IMPRESSION: Appearance consistent with a contusion with small areas of hemorrhage. Reading Location: [id number]
== END | disposition home or self-care (01) ==
PROVIDERS: PCP Family Medicine; Referring Provider Family Medicine; Visit Provider Family Medicine
DX: R22.41 Localized swelling, mass and lump, right lower limb (principal)
CPT/HCPCS: 76882

== ENCOUNTER → 2025-08-19 | Outpatient (CLI) | payer MEDICARE, OTHER, SELFPAY ==
[2025-05-24 07:20] VITALS: BMI 25.3
[2025-08-19 10:35] LABS: Iron 92 ug/dL (65-175); Iron Binding Capacity,Total 290 ug/dL (250-450); Iron Binding Capacity,Unsat 198 ug/dL (228-428)
[2025-08-19 10:36] LABS: Hematocrit 37.8 % (40-54); Hemoglobin 12.7 g/dL (13.0-16.5); Immature Granulocytes Count 0.020 X10^3/uL (0.0-0.0); Mean Corp Hgb Conc 33.6 g/dL (32-36); Mean Corpuscular Volume 88.9 fL (80-94); Mean Platelet Vol. 10.5 fl (6.2-12.0); NRBC Flagged by Analyzer 0 % (0-5); Platelet Count 221 K/mm3 (150-450); RBC Distribution Width CV 13.9 % (11.6-14.6); RBC Distribution Width SD 45.1 fl (35.1-43.9); Red Blood Count 4.25 M/mm3 (4.6-6.2); White Blood Count 4.7 K/mm3 (4.4-11.0)
== END | disposition home or self-care (01) ==
LOC: MTLAB 08:22
PROVIDERS: PCP Family Medicine; Referring Provider Family Medicine; Visit Provider Family Medicine
DX: D64.9 Anemia, unspecified (principal)
CPT/HCPCS: 36415; 83540; 83550; 85025

== ENCOUNTER → 2025-10-03 | Outpatient (CLI) | payer MEDICARE, OTHER, SELFPAY ==
[2025-05-24 07:20] VITALS: BMI 25.3
--- OUTSIDE RECORDS SUMMARY | 2025-10-03 08:18 | XMS RPT_ITS | CCD ---
Author Organization [facility] [place] Care Team Providers Care Manufacturing Accountant Name Role Phone Dr. Lawrence Wilson Primary Care Provider [phone] Dr. Lawrence Wilson Referring Provider Dr. Tucker Perry Attending Provider Dr. James Lama Attending Provider [phone] Tong Elliott Attending Provider Dr. Lawrence Wilson Primary Care [...] Dr. Lawrence Wilson Primary Care Provider Dr. Lawrenec Wilson Referring Provider Pranav PA, PA Mai [...] Dr. Lawrence Wilson MD Primary Care Provider Steve WATKINS, Dr. Lawrence Camarillo Attending Provider Steve WATKINS, Dr. Lawrence Camarillo Referring Provider Steve WATKINS, Dr. Lawrence Camarillo Primary Care Provider [phone] Mai Winston Attending Provider Lydia WATKINS, Dr. Rodriguez Attending Provider Steve WATKINS, Dr. Lawrence Camarillo Referring Provider Steve WATKINS, Dr. Lawrence Camarillo Attending Provider Sheila WATKINS, Dr. Borges Attending Provider Steve WATKINS, Dr. Lawrence Camarillo Primary Care Provider Steve WATKINS, Dr. Lawrence Camarillo Primary Care Provider [phone] Mac WATKINS, Dr. Lynne Attending Provider Mac WATKINS, Dr. Lynne Referring Provider Steve WATKINS, Dr. Lawrence Camarillo Referring Provider Steve WATKINS, Dr. Lawrence Camarillo Attending Provider Nessa Taylor Attending Provider Steve WATKINS, Dr. Lawrence Camarillo Primary Care Physician Mac WATKINS, Dr. Lynne Attending Physician Mac WATKINS, Dr. Lynne Referring Provider Steve WATKINS, Dr. Lawrence Camarillo Attending Physician Steve WATKINS, Dr. Lawrence Camarillo Referring Provider Sheila WATKINS, Dr. Borges Attending Physician Nessa Taylor Attending Physician Maged Watts Referring Unavailable Maged Watts Attending Unavailable Lawrence Wilson Primary Care Unavailable Tucker Perry Attending Unavailable Tucker Perry Referring Unavailable Lawrence Wilson Primary Care Unavailable Nessa Melissa NP Attending Unavailable Lawrence Wilson Referring Unavailable Lawrence Wilson Primary Care Unavailable Maged Watts Referring Unavailable Mac, Maged Attending Unavailable SchLawrence galvin Primary Care Unavailable Mai Winston Attending Unavail able Mai Winston Referring Unavail able SchinLawrence soares E Primary Care Unavailable Schinfnay, Lawrence Camarillo Primary Care Unavailable SchLawrence galvin Referring Unavailable SchLawrnece galivn Attending Unavailable SchLawrence galvin Primary Care Unavailable SchLawrence galvin Referring Unavailable SchLawrence galvin Attending Unavailable SchinLawrence soares Primary Care Unavailable SchLawrence galvin Referring Unavailable SchLawrence galvin Attending Unavailable Mai Winston Attending Unavail able SchLawrence galvin Referring Unavailable SchLawrence galvin Primary Care Unavailable SchaLwrence galvin Primary Care Unavailable SchLawrence galvin Referring Unavailable Nessa Melissa NP Attending Unavailable Schkamar, Lawrence Camarillo Primary Care Unavailable Tucker Perry Attending Unavailable Lawrence Wilson Referring Unavailable SchLawrence galvin Referring Unavailable SchLawrence galvin Primary Care Unavailable Lawrence Wilson Attending Unavailable Lawrence Wilson Attending Unavailable Lawrence Wilson Referring Unavailable SchLawrence galvin Primary Care Unavailable SchLawrence galvin Primary Care Unavailable Mac, Maged Referring Unavailable Mac, Maged Attending Unavailable Mac, Maged Referring Unavailable Mac, Maged Attending Unavailable SchLawrence galvin Primary Care Unavailable Mac, Maged Referring Unavailable Mac, Maged Attending Unavailable SchLawrence galvin Primary Care Unavailable Mac, Maged Attending Unavailable Mac, Maged Referring Unavailable SchLawrence galvin E Primary Care Unavailable Lydia, [place] Admitting Unavailable Lydia, Michael Attending Unavailable Lydia, [place] Referring Unavailable SchLawrence galvin Primary Care Unavailable SchLawrence galvin Primary Care Unavailable Lawrence Wilson Attending Unavailable Lawrence Wilson Referring Unavailable SchLawrence galvin Primary Care Unavailable Tucker Perry Attending Unavailable Tucker Perry Referring Unavailable Lawrence Wilson Consulting Unavailable Lawrence Wilson Attending Unavailable Lawrence Wilson Referring Unavailable SchLawrence galvin Primary Care Unavailable Lydia, Michael Attending Unavailable Lydia, [place] Referring Unavailable SchinLawrence soares E Primary Care Unavailable Mac, Maged Attending Unavailable SchLawrence galvin Primary Care Unavailable Jony Sosa Attending Unavailable Lawrence Wilson Referring Unavailable Lawrence Wilson Primary Care Unavailable Lawrence Wilson Consulting Unavailable Michael Freeman Attending Unavailable Lawrence Wilson Referring Unavailable Lawrence Wilson Primary Care Unavailable Michael Freeman Consulting Unavailable Michael Freeman Admitting Unavailable Tucker Perry Attending Unavailable Lawrence Wilson Referring Unavailable Lawrence Wilson Primary Care Unavailable Allergies Allergy Classification Reported Allergen(s) Allergy Type Date of Onset Reaction(s) Facility (20 sources) atorvastatin Drug Allergy 03-04-2022 myalgias [facility] (20 sources) [facility] atorvastatin Drug Allergy 06-06-2025 [facility] (1 source) pitavastatin Drug Allergy 06-06-2025 [facility] (1 source) rosuvastatin Drug Allergy 06-06-2025 [facility] Medications Current Medications Medication Drug Class(es) Dates Sig (Normalized) Sig (Original) 1 ml alirocumab 150 mg/ml auto-injector (2 sources) PCSK9 Inhibitor Start: 07-09-2025 amLODIPine 2.5 mg oral tablet (14 sources) Dihydropyridine Calcium Channel Colten Start: 02-05-2025 take 1 tablet by mouth once daily aspirin 81 mg delayed release oral tablet (20 sources) Platelet Aggregation Inhibitor, Nonsteroidal Anti-inflammatory Drug Start: 04-28-2021 take 1 tablet by mouth once daily clopidogrel 75 mg oral tablet (20 sources) P2Y12 Platelet Inhibitor Start: 02-20-2025 take 1 tablet by mouth once daily Start: 06-22-2021 End: 03-25-2023 take 1 tablet by mouth once daily Clopidogrel 75 mg tablet Discontinued 75 mg PO DAILY 12 11August 12, 2021 10:51am August 26, 2022 8:57am For cardiac cath ezetimibe 10 mg oral tablet (20 sources) Dietary Cholesterol Absorption Inhibitor Start: 04-28-2021 take 1 tablet by mouth once daily losartan potassium 50 mg oral tablet (14 sources) Angiotensin 2 Receptor Colten Start: 02-05-2025 take 1 tablet by mouth once daily meloxicam 15 mg oral tablet (20 sources) [...] 9:44am Start: 04-28-2021 take 1 tablet by mouth once da sherry Start: 04-28-2021 take 1 tablet by mouth once da sherry Multivit With Min-Folic Acid (Adult One Daily Multivitamin) 0.4 mg tablet Active 1 {tbl} PO DAILY April 28, 2021 12:00am Start: 04-28-2021 take 1 tablet by mouth once da sherry Multivit With Min-Folic Acid (Adult One Daily Multivitamin) 0.4 mg tablet Active 1 TABLET PO DAILY April 27, 2021 11:00pm Start: 04-28-2021 take 1 tablet by mouth once da sherry Multivit With Min-Folic Acid (Adult One Daily Multivitamin) 0.4 mg tablet Active 1 TABLET PO DAILY April 28, 2021 12:00am tadalafil 5 mg oral tablet (20 sources) Phosphodiesterase 5 Inhibitor Start: 04-28-2021 End: 03-04-2022 take 1 tablet by mouth once daily as needed tamsulosin hydrochloride 0.4 mg oral capsule (20 sources) alpha-Adrenergic Colten Start: 04-28-2021 take 1 capsule by mouth at bedtime Completed/Discontinued Medications Medication Drug Class(es) Dates Sig [...] 31, 2016 1:00am May 07, 2021 1:56pm 1 ml evolocumab 140 mg/ml auto-injector (18 sources) PCSK9 Inhibitor Start: 03-22-2025 End: 06-06-2025 Evolocumab (Repatha Sureclick) 140 mg/mL pen injector Discontinued 140 mg SC every 2 weeks 2 March 25, 2025 10:19am June 06, 2025 8:22am Inclisiran (9 sources) Start: 06-06-2025 End: 07-09-2025 Inclisiran (Leqvio) 284 mg/1.5 mL syringe Discontinued 284 mg SC every 6 months 1.5 2 June 06, 2025 4:22pm July 09, 2025 9:44am Start: 06-06-2025 Inclisiran (Le qvio) 284 mg/1.5 mL syringe Active 284 mg SC every 6 months 1.5 2 June 06, 2025 4:22pm Start: 06-06-2025 End: 06-06-2025 Inclisiran (Leqvio) 284 mg/1 .5 mL syringe Discontinued 284 mg SC every 6 months 1.5 2 June 06, 2025 12:00am June 06, 2025 4:22pm Start: 06-06-2025 Inclisiran (Le qvio) 284 mg/1.5 mL syringe Active 284 mg SC every 6 months 1.5 2 June 06, 2025 12:00am linseed oil 1000 mg oral capsule (20 [...] Problem Classification Problem Date Documented Date Episodic/Chronic Cardiac dysrhythmias (20 sources) Sinus bradycardia; Translations: [Bradycardia, unspecified] 04-28-2021 Episodic Conditions associated with dizziness or vertigo (20 sources) Dizziness; Translations: [Dizziness and giddiness] Episodic Conditions associated with dizziness or vertigo (13 sources) Conditions associated with dizziness or vertigo; Translations: [Abnormal cardiovascular stress test] Coronary atherosclerosis and other heart disease (20 sources) Coronary atherosclerosis; Translations: [Atherosclerotic heart disease of [place] coronary artery without angina pectoris] Onset: 10-22-2024 Chronic Coronary atherosclerosis and other heart disease (4 sources) Coronary atherosclerosis and other heart disease Deficiency and other anemia (1 source) Anemia, unspecified; Translations: [Anemia, unspecified] Onset: 09-09-2025 Episodic Disorders of lipid metabolism (20 sources) Mixed hyperlipidemia; Translations: [Mixed hyperlipidemia] Onset: 03-12-2025 Chronic Essential hypertension (20 sources) Essential hypertension; Translations: [Essential (primary) hypertension] Onset: 03-04-2025 02-06-2025 Chronic Malaise and fatigue (20 sources) Fatigue; Translations: [Other fatigue] 05-07-2021 Episodic Occlusion or stenosis of precerebral arteries [...] disorders of arteries and arterioles] Chronic Other connective tissue disease (1 source) Other specified soft tissue disorders; Translations: [Other specified soft tissue disorders] Onset: 06-11-2025 Episodic Other lower respiratory disease (20 sources) Dyspnea; Translations: [Shortness of breath] 05-07-2021 Episodic Other skin disorders (1 source) Localized swelling, mass and lump, right lower limb; Translations: [Localized swelling, mass and lump, right lower limb] Onset: 08-02-2025 Episodic Residual codes; unclassified (4 sources) Other specified health status; Translations: [Statin intolerance] 06-10-2025 Episodic Past or Other Problems Problem Classification Problem Date Documented Da te Episodic/Chronic Cancer of prostate (20 sources) History of malignant neoplasm of prostate; Translations: [Personal history of malignant neoplasm of prostate] Onset: 02-19-2025 Episodic Coronary atherosclerosis and other heart disease (20 [...] mm drug-eluting stent/Orsiro per Dr. Taylor 08/11/21 Successful percutane ous coronary intervention, of mid LAD 70% eccentric stenosis with BRETT-3 flow pre-procedure; Post procedure following predilatation using 2.5 x 15 mm emerge balloon and placement of drug-eluting stent 3.5 x 22 mm drug-eluting stent/Orsiro per Dr. Taylor 08/11/21; 3.0 x 15 ROSAS FRONTIER SHERIN to mLAD 02/19/25 Nonspecific chest pain (20 sources) Chest pain; Translations: [Chest pain, unspecified] Onset: 03-04-2025 06-22-2021 Episodic Other lower respiratory disease (1 source) Shortness of breath; Translations: [Shortness of breath] Onset: 02-08-2025 Episodic Other screening for suspected conditions (not mental disorders or infectious disease) (20 sources) Cardiovascular stress test abnormal; Translations: [Abnormal result of other cardiovascular function study] Onset: 02-11-2025 02-05-2025 Episodic Results Test Name Value Interpretation Reference Range Facility CBC W/Diff, Automatedon 10-0 Absolute Lymph 1.34 X10 3/uL Normal 0.83-4.51 [facility] Comment on above: Order Comment: Order Date: 07/18/25 Order Info: 0184-1 - CBCD Comments: iron defficiency/anemia Performed By: #### L 100.0100 #### [facility] [address] [place], [place], [id number] Absolute Neut 2.5 X10 3/uL Normal 2.0-7.7 [facility] Comment on above: Order Comment: Order Date: 07/18/25 Order Info: [id number] - CBCD Comments: iron defficiency/anemia Performed By: #### L 100.0100 #### [facility] [address] [place], [address] Basophils/100 WBC (Bld) 1.3 % High 0-1 [facility] Comment on above: Order Comment: Order Date: 07/18/25 Order Info: 0184-1 - CBCD Comments: iron defficiency/anemia Performed By: #### L 100.0100 #### [facility] [address] [place], [address] Eosinophils/100 WBC (Bld) 5.8 % High 0-5 [facility] Comment on above: Order Comment: Order Date: 07/18/25 Order Info: [id number] - CBCD Comments: iron defficiency/anemia Performed By: #### L 100.0100 #### [facility] [address] [place], [address] Erythrocyte distribution width (RBC) [Ratio] 13.9 % Normal 11.6-14.6 [facility] Comment on above: Order Comment: Order Date: 07/18/25 Order Info: 0184-1 - CBCD Comments: iron defficiency/anemia Performed By: #### L 100.0100 #### [facility] [address] [place], [address] Hematocrit (Bld) [Volume fraction] 37.8 % Low 40-54 [facility] Comment on above: Order Comment: Order Date: 07/18/25 Order Info: 0184-1 - CBCD Comments: iron defficiency/anemia Performed By: #### L 100.0100 #### [facility] [address] [place], [address] Hemoglobin (Bld) [Mass/Vol] 12.7 g/dL Low 13.0-16.5 [facility] Comment on above: Order Comment: Order Date: 07/18/25 Order Info: 0184-1 - CBCD Comments: iron defficiency/anemia Performed By: #### L 100.0100 #### [facility] [address] [place], [address] IG% 0.400 Normal 0.0-0.9 [facility] Comment on above: Order Comment: Order Date: 07/18/25 Order Info: [id number] - CBCD Comments: iron defficiency/anemia Result Comment: IG% - Immature Granulocytes (promyelocytes, myelocytes and metamyelocytes) > 1% indicates that a LEFT SHIFT is Present. Performed By: #### L 100.0100 #### [facility] [address] [place], [address] Lymphocytes/100 WBC (Bld) 28.6 % Normal 19-41 [facility] Comment on above: Order Comment: Order Date: 07/18/25 Order Info: 0184-1 - CBCD Comments: iron defficiency/anemia Performed By: #### L 100.0100 #### [facility] [address] [place], [address] MCH (RBC) [Entitic mass] 29.9 pg Normal 27.0-32.0 [facility] Comment on above: Order Comment: Order Date: 07/18/25 Order Info: 0184-1 - CBCD Comments: iron defficiency/anemia Performed By: #### L 100.0100 #### [facility] [address] [place], [address] MCHC (RBC) [Mass/Vol] 33.6 g/dL Normal 32-36 [facility] Comment on above: Order Comment: Order Date: 07/18/25 Order Info: 0184-1 - CBCD Comments: iron defficiency/anemia Performed By: #### L 100.0100 #### [facility] [address] [place], [address] MCV (RBC) [Entitic vol] 88.9 fL Normal 80-94 [facility] Comment on above: Order Comment: Order Date: 07/18/25 Order Info: 0184-1 - CBCD Comments: iron defficiency/anemia Performed By: #### L 100.0100 #### [facility] [address] [place], [address] Monocytes/100 WBC (Bld) 11.5 % High 0-10 [facility] Comment on above: Order Comment: Order Date: 07/18/25 Order Info: 0184-1 - CBCD Comments: iron defficiency/anemia Performed By: #### L 100.0100 #### [facility] [address] [place], [address] Neutrophils/100 WBC (Bld) 52.4 % Normal 47-70 [facility] Comment on above: Order Comment: Order Date: 07/18/25 Order Info: 0184-1 - CBCD Comments: iron defficiency/anemia Performed By: #### L 100.0100 #### [facility] [address] [place], [address] Nucleated RBC (Bld) [#/Vol] 0 10*3/uL Normal 0-5 [facility] Comment on above: Order Comment: Order Date: 07/18/25 Order Info: 0184-1 - CBCD Comments: iron defficiency/anemia Performed By: #### L 100.0100 #### [facility] [address] [place], [address] Platelet mean volume (Bld) [Entitic vol] 10.5 fL Normal 6.2-12.0 [facility] Comment on above: Order Comment: Order Date: 07/18/25 Order Info: 0184-1 - CBCD Comments: iron defficiency/anemia Performed By: #### L 100.0100 #### [facility] [address] [place], [address] Platelets (Bld) [#/Vol] 221 10*3/uL Normal 150-450 [facility] Comment on above: Order Comment: Order Date: 07/18/25 Order Info: 0184-1 - CBCD Comments: iron defficiency/anemia Performed By: #### L 100.0100 #### [facility] [address] [place], [address] RBC (Bld) [#/Vol] 4.25 10*6/uL Low 4.6-6.2 [facility] Comment on above: Order Comment: Order Date: 07/18/25 Order Info: 0184-1 - CBCD Comments: iron defficiency/anemia Performed By: #### L 100.0100 #### [facility] [address] [place], [address] RDW SD 45.1 fl High 35.1-43.9 [facility] Comment on above: Order Comment: Order Date: 07/18/25 Order Info: 0184-1 - CBCD Comments: iron defficiency/anemia Performed By: #### L 100.0100 #### [facility] [address] [place], [address] WBC (Bld) [#/Vol] 4.7 10*3/uL Normal 4.4-11.0 [facility] Comment on above: Order Comment: Order Date: 07/18/25 Order Info: 0184-1 - CBCD Comments: iron defficiency/anemia Performed By: #### L 100.0100 #### [facility] [address] [place], [address] Iron+Iron Binding Capacityon 08-19-2025 Iron [Mass/Vol] 92 ug/dL Normal 65-175 [facility] Comment on above: Order Comment: Order Date: 07/18/25 Order Info: [id number] - IBC iron defficiency/anemia Performed By: #### L 503.6030 #### [facility] [address] [place], [address] IRON SATURATION 31.7 Normal 9-55 [facility] Comment on above: Order Comment: Order Date: 07/18/25 Order Info: [id number] - IBC iron defficiency/anemia Performed By: #### L 503.6030 #### [facility] [address] [place], [address] TIBC 290 ug/dL Normal 250-450 [facility] Comment on above: Order Comment: Order Date: 07/18/25 Order Info: [id number] - IBC iron defficiency/anemia Performed By: #### L 503.6030 #### [facility] [address] [place], [address] UIBC 198 ug/dL Low 228-428 [facility] Comment on above: Order Comment: Order Date: 07/18/25 Order Info: [id number] - IBC iron defficiency/anemia Performed By: #### L 503.6030 #### [facility] [address] [place], [address] Ext Non Vasc Limited/Soft Ti sson 07-19-2025 Ext Non Vasc Limited/Soft Tiss [facility] Services [address] [place] [address] Ext Non Vasc Limited/Soft Tiss MR#: [id number] Acct: [id number] Name: ABRAHAN CALVERT Rep #: [id number] : 1950 M 74 From: Owen Elliott MD PCP: Dr. Lawrence Wilson MD Status: REG CLI Study: Ext Non Vasc Limited/Soft Tiss Date of Exam: 0 07/19/25 Exam# [id number] Ordering Dr: Lawrence Wilson MD PROCEDURE: EXT NON VASC LIMITED/SOFT TISS 07/19/2025 REASON FOR EXAM: LOCALIZED SWELLING, MASS AND LUMP, RIGHT LOWER LIMB TECHNIQUE: Procedure Code: [id number] Modality: US Procedure: EXT NON VASC LIMITED/SOFT TISS COMPARISON: None. FINDINGS: Edematous tissue with some anechoic areas seen at the area of palpable lump. The area measures 11.6 x 4.9 x 1.2 cm in total. US/Ext Non Vasc Limited/Soft Tiss IMPRESSION: Appearance consistent with a contusion with small areas of hemorrhage. Reading Location: [id number] CC: Dr. Lawrence Wilson MD Adjutant General: Signed Normal [facility] Ferritinon 07-09-2025 Ferritin [Mass/Vol] 66 ng/mL Normal 37-417 [facility] Comment on above: Order Comment: DANIEL Camarillo ADD IBC [place] B12 TO BLOOD DRAWN 07/08/25 PER Order Date: 03/07/25 Order Info: [id number] - CMP Order Info: [id number] - LIPID Performed By: #### L 503.6550, L503.6030, L503.0106, L501.9940 #### [facility] [address] [place], [address] Iron+Iron Binding Capacityon 07-09-2025 Iron [Mass/Vol] 55 ug/dL Low 65-175 [facility] Comment on above: Order Comment: DANIEL Camarillo ADD IBC [place] B12 TO BLOOD DRAWN 07/08/25 PER Order Date: 03/07/25 Order Info: [id number] - CMP Order Info: [id number] - LIPID Performed By: #### L 503.6550, L503.6030, L503.0106, L501.9940 #### [facility] [address] [place], [address] IRON SATURATION 18.0 Normal 9-55 [facility] Comment on above: Order Comment: DANIEL Camarillo ADD IBC [place] B12 TO BLOOD DRAWN 07/08/25 PER Order Date: 03/07/25 Order Info: [id number] - CMP Order Info: [id number] - LIPID Performed By: #### L 503.6550, L503.6030, L503.0106, L501.9940 #### [facility] [address] [place], [address] TIBC 304 ug/dL Normal 250-450 [facility] Comment on above: Order Comment: DANIEL Camarillo ADD IBC [place] B12 TO BLOOD DRAWN 07/08/25 PER Order Date: 03/07/25 Order Info: [id number] - CMP Order Info: [id number] - LIPID Performed By: #### L 503.6550, L503.6030, L503.0106, L501.9940 #### [facility] [address] [place], [address] UIBC 249 ug/dL Normal 228-428 [facility] Comment on above: Order Comment: DANIEL Camarillo ADD IBC [place] B12 TO BLOOD DRAWN 07/08/25 PER Order Date: 03/07/25 Order Info: [id number] - CMP Order Info: [id number] - LIPID Performed By: #### L 503.6550, L503.6030, L503.0106, L501.9940 #### [facility] [address] [place], [address] Vitamin B12on 07-09-2025 Cobalamin (Vitamin B12) [Mass/Vol] 657 pg/mL Normal 180-914 [facility] Comment on above: Order Comment: DANIEL Camarillo ADD IBC [place] B12 TO BLOOD DRAWN 07/08/25 PER Order Date: 03/07/25 Order Info: [id number] - CMP Order Info: [id number] - LIPID Performed By: #### L 503.6550, L503.6030, L503.0106, L501.9940 #### [facility] [address] [place], [address] Absolute lymphocyte countOrd ered By: Lawrence Wilson on 07-08-2025 Lymphocytes Auto (Unsp spec) [#/Vol] 1.36 10*3/uL 0.83-4.51 [facility] Absolute neutrophil countOrd ered By: Lawrence Wilson on 07-08-2025 Neutrophils (Bld) [#/Vol] 2.4 10*3/uL 2.0-7.7 [facility] Anion gap in Serum or Plasma Ordered By: Lawrence Wilson on 07-08-2025 Anion gap [Moles/Vol] 12 mmol/L 5-15 [facility] Automated lymphocyte count a s percentage of total leukocytesOrdered By: Lawrence Wilson on 07-08-2025 Lymphocytes/100 WBC Auto (Unsp spec) 29.9 % [facility] BUN/creatinine ratioOrdered By: Lawrence Wilson on 07-08-2025 Urea nitrogen/Creatinine [Mass ratio] 27.7 mg/mg High 10- [facility] Basophil percentageOrdered B y: Lawrence Wilson on 07-08-2025 Basophils/100 WBC (Bld) 1.1 % High 0-1 [facility] Bilirubin, totalOrdered By: Lawrence Wilson on 07-08-2025 Bilirubin [Mass/Vol] 0.48 mg/dL 0.00-1.30 [facility] CBC W/Diff, Automatedon 06-15 Absolute Lymph 1.36 X10 3/uL Normal 0.83-4.51 [facility] Comment on above: Order Comment: Order Date: 03/28/24 Order Info: [id number] - CMP Order Info: [id number] - LIPID Performed By: #### L 500.4100, L500.4050, L100.0100 #### [facility] [address] [place], [address] Absolute Neut 2.4 X10 3/uL Normal 2.0-7.7 [facility] Comment on above: Order Comment: Order Date: 03/28/24 Order Info: [id number] - CMP Order Info: [id number] - LIPID Performed By: #### L 500.4100, L500.4050, L100.0100 #### [facility] [address] [place], [address] Basophils/100 WBC (Bld) 1.1 % High 0-1 [facility] Comment on above: Order Comment: Order Date: 03/28/24 Order Info: [id number] - CMP Order Info: [id number] - LIPID Performed By: #### L 500.4100, L500.4050, L100.0100 #### [facility] [address] [place], [address] Eosinophils/100 WBC (Bld) 4.6 % Normal 0-5 [facility] Comment on above: Order Comment: Order Date: 03/28/24 Order Info: [id number] - CMP Order Info: [id number] - LIPID Performed By: #### L 500.4100, L500.4050, L100.0100 #### [facility] [address] [place], [address] Erythrocyte distribution width (RBC) [Ratio] 13.6 % Normal 11.6-14.6 [facility] Comment on above: Order Comment: Order Date: 03/28/24 Order Info: [id number] - CMP Order Info: [id number] - LIPID Performed By: #### L 500.4100, L500.4050, L100.0100 #### [facility] [address] [place], [address] Hematocrit (Bld) [Volume fraction] 38.5 % Low 40-54 [facility] Comment on above: Order Comment: Order Date: 03/28/24 Order Info: 0786- - CMP Order Info: [id number] - LIPID Performed By: #### L 500.4100, L500.4050, L100.0100 #### [facility] [address] [place], [address] Hemoglobin (Bld) [Mass/Vol] 12.9 g/dL Low 13.0-16.5 [facility] Comment on above: Order Comment: Order Date: 03/28/24 Order Info: [id number] - CMP Order Info: [id number] - LIPID Performed By: #### L 500.4100, L500.4050, L100.0100 #### [facility] [address] [place], [address] IG% 0.000 Normal 0.0-0.9 [facility] Comment on above: Order Comment: Order Date: 03/28/24 Order Info: [id number] - CMP Order Info: [id number] - LIPID Result Comment: IG% - Immature Granulocytes (promyelocytes, myelocytes and metamyelocytes) > 1% indicates that a LEFT SHIFT is Present. Performed By: #### L 500.4100, L500.4050, L100.0100 #### [facility] [address] [place], [address] Lymphocytes/100 WBC (Bld) 29.9 % Normal 19-41 [facility] Comment on above: Order Comment: Order Date: 03/28/24 Order Info: 07 - CMP Order Info: [id number] - LIPID Performed By: #### L 500.4100, L500.4050, L100.0100 #### [facility] [address] [place], [address] MCH (RBC) [Entitic mass] 30.0 pg Normal 27.0-32.0 [facility] Comment on above: Order Comment: Order Date: 03/28/24 Order Info: 07 - CMP Order Info: [id number] - LIPID Performed By: #### L 500.4100, L500.4050, L100.0100 #### [facility] [address] [place], [address] MCHC (RBC) [Mass/Vol] 33.5 g/dL Normal 32-36 [facility] Comment on above: Order Comment: Order Date: 03/28/24 Order Info: 0786- - CMP Order Info: [id number] - LIPID Performed By: #### L 500.4100, L500.4050, L100.0100 #### [facility] [address] [place], [address] MCV (RBC) [Entitic vol] 89.5 fL Normal 80-94 [facility] Comment on above: Order Comment: Order Date: 03/28/24 Order Info: 0786 - CMP Order Info: [id number] - LIPID Performed By: #### L 500.4100, L500.4050, L100.0100 #### [facility] [address] [place], [address] Monocytes/100 WBC (Bld) 12.7 % High 0-10 [facility] Comment on above: Order Comment: Order Date: 03/28/24 Order Info: 0786- - CMP Order Info: [id number] - LIPID Performed By: #### L 500.4100, L500.4050, L100.0100 #### [facility] [address] [place], [address] Neutrophils/100 WBC (Bld) 51.7 % Normal 47-70 [facility] Comment on above: Order Comment: Order Date: 03/28/24 Order Info: 0786- - CMP Order Info: [id number] - LIPID Performed By: #### L 500.4100, L500.4050, L100.0100 #### [facility] [address] [place], [address] Nucleated RBC (Bld) [#/Vol] 0 10*3/uL Normal 0-5 [facility] Comment on above: Order Comment: Order Date: 03/28/24 Order Info: 0786- - CMP Order Info: [id number] - LIPID Performed By: #### L 500.4100, L500.4050, L100.0100 #### [facility] [address] [place], [address] Platelet mean volume (Bld) [Entitic vol] 10.8 fL Normal 6.2-12.0 [facility] Comment on above: Order Comment: Order Date: 03/28/24 Order Info: 0786- - CMP Order Info: [id number] - LIPID Performed By: #### L 500.4100, L500.4050, L100.0100 #### [facility] [address] [place], [address] Platelets (Bld) [#/Vol] 227 10*3/uL Normal 150-450 [facility] Comment on above: Order Comment: Order Date: 03/28/24 Order Info: [id number] - CMP Order Info: [id number] - LIPID Performed By: #### L 500.4100, L500.4050, L100.0100 #### [facility] [address] [place], [address] RBC (Bld) [#/Vol] 4.30 10*6/uL Low 4.6-6.2 [facility] Comment on above: Order Comment: Order Date: 03/28/24 Order Info: [id number] - CMP Order Info: [id number] - LIPID Performed By: #### L 500.4100, L500.4050, L100.0100 #### [facility] [address] [place], [address] RDW SD 44.6 fl High 35.1-43.9 [facility] Comment on above: Order Comment: Order Date: 03/28/24 Order Info: [id number] - CMP Order Info: [id number] - LIPID Performed By: #### L 500.4100, L500.4050, L100.0100 #### [facility] [address] [place], [address] WBC (Bld) [#/Vol] 4.6 10*3/uL Normal 4.4-11.0 [facility] Comment on above: Order Comment: Order Date: 03/28/24 Order Info: [id number] - CMP Order Info: [id number] - LIPID Performed By: #### L 500.4100, L500.4050, L100.0100 #### [facility] [address] [place], [address] Calculated very low density lipoprotein (VLDL) cholesterol measurementOrdered By: Lawrence Wilson on 07-08-2025 Calculated very low density lipoprotein (VLDL) cholesterol measurement 28 mg/dL 5-40 [facility] Carbon dioxide, total [Moles /volume] in Central venous bloodOrdered By: Lawrence Wilson on 07-08-2025 CO2 [Moles/Vol] 22.3 mmol/L 21.0-32.0 [facility] Chloride assayOrdered By: Leah Wilson on 07-08-2025 Chloride [Moles/Vol] 105 mmol/L 98-108 [facility] Comprehensive Metabolic Prof ilon 07-08-2025 Albumin [Mass/Vol] 4.2 g/dL Normal 3.4-4.8 [facility] Comment on above: Order Comment: Order Date: 03/28/24 Order Info: [id number] - CMP Order Info: [id number] - LIPID Performed By: #### L 500.4100, L500.4050, L100.0100 #### [facility] [address] [place], [address] Albumin/Globulin [Mass ratio] 1.5 {ratio} Normal 0.9-2.4 [facility] Comment on above: Order Comment: Order Date: 03/28/24 Order Info: [id number] - CMP Order Info: [id number] - LIPID Performed By: #### L 500.4100, L500.4050, L100.0100 #### [facility] [address] [place], [address] ALK PHOS 76 U/L Normal 40-129 [facility] Comment on above: Order Comment: Order Date: 03/28/24 Order Info: [id number] - CMP Order Info: [id number] - LIPID Performed By: #### L 500.4100, L500.4050, L100.0100 #### [facility] [address] [place], [address] ALT [Catalytic activity/Vol] 20 U/L Normal <=46 [facility] Comment on above: Order Comment: Order Date: 03/28/24 Order Info: [id number] - CMP Order Info: [id number] - LIPID Performed By: #### L 500.4100, L500.4050, L100.0100 #### [facility] [address] [place], [address] AST [Catalytic activity/Vol] 23 U/L Normal <=37 [facility] Comment on above: Order Comment: Order Date: 03/28/24 Order Info: [id number] - CMP Order Info: [id number] - LIPID Performed By: #### L 500.4100, L500.4050, L100.0100 #### [facility] [address] [place], [address] Bilirubin [Mass/Vol] 0.48 mg/dL Normal 0.00-1.30 [facility] Comment on above: Order Comment: Order Date: 03/28/24 Order Info: [id number] - CMP Order Info: [id number] - LIPID Performed By: #### L 500.4100, L500.4050, L100.0100 #### [facility] [address] [place], [address] BUN/CRE 27.7 RATIO High 10-20 [facility] Comment on above: Order Comment: Order Date: 03/28/24 Order Info: [id number] - CMP Order Info: [id number] - LIPID Performed By: #### L 500.4100, L500.4050, L100.0100 #### [facility] [address] [place], [address] Calcium [Mass/Vol] 9.1 mg/dL Normal 7.6-11.0 [facility] Comment on above: Order Comment: Order Date: 03/28/24 Order Info: [id number] - CMP Order Info: [id number] - LIPID Performed By: #### L 500.4100, L500.4050, L100.0100 #### [facility] [address] [place], [address] Chloride [Moles/Vol] 105 mmol/L Normal 98-108 [facility] Comment on above: Order Comment: Order Date: 03/28/24 Order Info: [id number] - CMP Order Info: [id number] - LIPID Performed By: #### L 500.4100, L500.4050, L100.0100 #### [facility] [address] [place], [address] CO2 [Moles/Vol] 22.3 mmol/L Normal 21.0-32.0 [facility] Comment on above: Order Comment: Order Date: 03/28/24 Order Info: 0786- - CMP Order Info: [id number] - LIPID Performed By: #### L 500.4100, L500.4050, L100.0100 #### [facility] [address] [place], [address] Creatinine [Mass/Vol] 1.14 mg/dL Normal 0.70-1.20 [facility] Comment on above: Order Comment: Order Date: 03/28/24 Order Info: 0786- - CMP Order Info: [id number] - LIPID Performed By: #### L 500.4100, L500.4050, L100.0100 #### [facility] [address] [place], [address] GAP 12 Normal 5-15 [facility] Comment on above: Order Comment: Order Date: 03/28/24 Order Info: 0786- - CMP Order Info: [id number] - LIPID Performed By: #### L 500.4100, L500.4050, L100.0100 #### [facility] [address] [place], [address] GFR/1.73 sq M.predicted among non-blacks MDRD (S/P/Bld) [Vol rate/Area] 67 mL/min/{1.73_m2} Normal >60 [facility] Comment on above: Order Comment: Order Date: 03/28/24 Order Info: [id number] - CMP Order Info: [id number] - LIPID Result Comment: mL/m in/1.73m2 CKD-EPI Creatinine Equation (2020) Performed By: #### L 500.4100, L500.4050, L100.0100 #### [facility] [address] [place], [address] Globulin (S) [Mass/Vol] 2.8 g/dL Normal 2.2-4.2 [facility] Comment on above: Order Comment: Order Date: 03/28/24 Order Info: [id number] - CMP Order Info: [id number] - LIPID Performed By: #### L 500.4100, L500.4050, L100.0100 #### [facility] [address] [place], [address] Glucose [Mass/Vol] 91 mg/dL Normal 70-99 [facility] Comment on above: Order Comment: Order Date: 03/28/24 Order Info: 0786- - CMP Order Info: [id number] - LIPID Performed By: #### L 500.4100, L500.4050, L100.0100 #### [facility] [address] [place], [address] Potassium [Moles/Vol] 4.3 mmol/L Normal 3.3-5.1 [facility] Comment on above: Order Comment: Order Date: 03/28/24 Order Info: [id number] - CMP Order Info: [id number] - LIPID Performed By: #### L 500.4100, L500.4050, L100.0100 #### [facility] [address] [place], [address] Sodium [Moles/Vol] 139 mmol/L Normal 133-145 [facility] Comment on above: Order Comment: Order Date: 03/28/24 Order Info: [id number] - CMP Order Info: [id number] - LIPID Performed By: #### L 500.4100, L500.4050, L100.0100 #### [facility] [address] [place], [address] T PROT 7.1 g/dL Normal 5.9-8.4 [facility] Comment on above: Order Comment: Order Date: 03/28/24 Order Info: [id number] - CMP Order Info: [id number] - LIPID Performed By: #### L 500.4100, L500.4050, L100.0100 #### [facility] [address] [place], [place], [address] Urea nitrogen [Mass/Vol] 32 mg/dL High 4-19 [facility] Comment on above: Order Comment: Order Date: 03/28/24 Order Info: [id number] - CMP Order Info: [id number] - LIPID Performed By: #### L 500.4100, L500.4050, L100.0100 #### [facility] [address] [place], [place], [address] Eosinophil percentageOrdered By: Lawrence Wilson on 07-08-2025 Eosinophils/100 WBC (Bld) 4.6 % 0-5 [facility] Erythrocyte distribution wid th ratioOrdered By: Lawrence Wilson on 07-08-2025 Erythrocyte distribution width (RBC) [Ratio] 13.6 % 11.6-14.6 [facility] Erythrocyte distribution wid th standard deviationOrdered By: Lawrence Wilson on 07-08-2025 Erythrocyte distribution width (RBC) [Ratio] 44.6 fl High 35.1-43.9 [facility] Glomerular filtration rate ( GFR) estimation/1.73 sq m using serum, plasma, or whole bOrdered By: Lawrence Wilson on 07-08-2025 GFR/1.73 sq M.predicted among non-blacks MDRD (S/P/Bld) [Vol rate/Area] 67 mL/min/{1.73_m2} >60 [facility] Comment on above: mL/min/1.73m2 CKD-EP I Creatinine Equation (2020) Hematocrit Auto (Bld) [Volum e fraction]Ordered By: Lawrence Wilson on 07-08-2025 Hematocrit (Bld) [Volume fraction] 38.5 % Low 40-54 [facility] Hemoglobin measurementOrdere d By: Lawrence Wilson on 07-08-2025 Hemoglobin (Bld) [Mass/Vol] 12.9 g/dL Low 13.0-16.5 [facility] Immature granulocytes/100 WB C Auto (Bld)Ordered By: Lawrence Wilson on 07-08-2025 Immature granulocytes/100 WBC (Bld) 0.000 % 0.0-0.9 [facility] Comment on above: IG% - Immature Granu locytes (promyelocytes, myelocytes and metamyelocytes) > 1% indicates that a LEFT SHIFT is Present. Iron measurement (mass/mass) Ordered By: Lawrence Wilson on 07-08-2025 Iron (Unsp spec) [Mass/Mass] 55 ug/dL Low 65-175 [facility] LDL calc ser/plasOrdered By: Lawrence Wilson on 07-08-2025 Cholesterol in LDL [Mass/Vol] 142 mg/dL [facility] Comment on above: Miidfqxenp=382-632 m g/dL & Higher Zsre=345 mg/dL or greaterFriedwald Equation for LDL-C Laboratory - Chemistry and C hemistry - challengeOrdered By: Lawrence Wilson on 07-08-2025 AST [Catalytic activity/Vol] 23 U/L <38 [facility] Lipid Profileon 07-08-2025 CHOL:HDL 4.39 Normal [facility] Comment on above: Order Comment: Order Date: 03/28/24 Order Info: [id number] - CMP Order Info: [id number] - LIPID Performed By: #### L 500.4100, L500.4050, L100.0100 #### [facility] [address] [place], [address] Cholesterol [Mass/Vol] 220 mg/dL High <=200 [facility] Comment on above: Order Comment: Order Date: 03/28/24 Order Info: [id number] - CMP Order Info: [id number] - LIPID Result Comment: Chol esterol level, Desirable <200 mg/dL Borderline high cholesterol 200-239 mg/dL High cholesterol >=240 mg/dL Recommendations of the NCEP Adult Treatment Panel for the following risk-cutoff thresholds for the [place] population. Performed By: #### L 500.4100, L500.4050, L100.0100 #### [facility] [address] [place], [address] Cholesterol in HDL [Mass/Vol] 50 mg/dL Normal [facility] Comment on above: Order Comment: Order Date: 03/28/24 Order Info: [id number] - CMP Order Info: [id number] - LIPID Result Comment: Camilla onal Cholesterol Education Program (NCEP) guidelines: <40 mg/dL: Low HDL-cholesterol (major risk factor for CHD) >= 60 mg/dL: High HDL-cholesterol (negative risk factor for CHD) HDL-cholesterol is affected by a number of factors, e.g. smoking, exercise, hormones, sex and age. Performed By: #### L 500.4100, L500.4050, L100.0100 #### [facility] [address] [place], [address] Cholesterol in LDL [Mass/Vol] 142 mg/dL Normal [facility] Comment on above: Order Comment: Order Date: 03/28/24 Order Info: [id number] - CMP Order Info: [id number] - LIPID Result Comment: Bord lxylvi=370-495 mg/dL Higher Octd=769 mg/dL or greater Friedwald Equation for LDL-C Performed By: #### L 500.4100, L500.4050, L100.0100 #### [facility] [address] [place], [address] Cholesterol in VLDL [Mass/Vol] 28 mg/dL Normal 5-40 [facility] Comment on above: Order Comment: Order Date: 03/28/24 Order Info: [id number] - CMP Order Info: [id number] - LIPID Performed By: #### L 500.4100, L500.4050, L100.0100 #### [facility] [address] [place], [address] Triglyceride [Mass/Vol] 139 mg/dL Normal [facility] Comment on above: Order Comment: Order Date: 03/28/24 Order Info: [id number] - CMP Order Info: [id number] - LIPID Result Comment: The drugs N-Acetylcysteine and Metamizole may falsely depress this assay. Normal range: <150 mg/dL Borderline High: 150-199 mg/dL High: 200-499 mg/dL Very High: >500 mg/dL Performed By: #### L 500.4100, L500.4050, L100.0100 #### [facility] [address] [place], [id number] MCV (mean corpuscular volume ) determinationOrdered By: Lawrence Wilson on 07-08-2025 MCV (RBC) [Entitic vol] 89.5 fL 80-94 [facility] Mean corpuscular hemoglobin (MCH) determinationOrdered By: Lawrence Wilson on 07-08-2025 MCH (RBC) [Entitic mass] 30.0 pg 27.0-32.0 [facility] Mean corpuscular hemoglobin concentration (MCHC) determinationOrdered By: Lawrence Wilson on 07-08-2025 MCHC (RBC) [Mass/Vol] 33.5 g/dL 32-36 [facility] Mean platelet volume determi nationOrdered By: Lawrence Wilson on 07-08-2025 Platelet mean volume (Bld) [Entitic vol] 10.8 fL 6.2-12.0 [facility] Monocyte percentageOrdered B y: Lawrence Wilson on 07-08-2025 Monocytes/100 WBC (Bld) 12.7 % High 0-10 [facility] Neutrophil percentageOrdered By: Lawrence Wilson on 07-08-2025 Neutrophils/100 WBC (Bld) 51.7 % 47-70 [facility] No Panel InformationOrdered By: Lawrence Wilson on 07-08-2025 Unsaturated Iron Binding Capacity 249 ug/dL 228-428 [facility] Nucleated red blood cell per centageOrdered By: Lawrence Wilson on 07-08-2025 Nucleated RBC/100 WBC (Bld) [Ratio] 0 % 0-5 [facility] PSA,Total- Diagnosticon 06-15 PSA, DIAGNOSTIC 0.69 ng/mL Normal 0.00-4.00 [facility] Comment on above: Order Comment: Order Date: 03/07/25 Order Info: [id number] - CMP Order Info: [id number] - LIPID Result Comment: This test was performed using the [employer] tPSA method. Measured values of a patient??sample can vary depending on the testing procedure used. PSA values determined on patient samples by different testing procedures cannot be used interchangeably. If there is a change in PSA assays while monitoring therapy, sequential testing should be performed to confirm baseline values. Performed By: #### L 503.6550, L503.6030, L503.0106, L501.9940 #### [facility] [address] [place], [place], [id number] Platelet countOrdered By: Leah Wilson on 07-08-2025 Platelets (Bld) [#/Vol] 227 10*3/uL 150-450 [facility] Potassium measurement (mass/ volume)Ordered By: Lawrence Wilson on 07-08-2025 Potassium (Unsp spec) [Mass/Vol] 4.3 mmol/L 3.3-5.1 [facility] RBC Auto (Bld) [#/Vol]Ordere d By: Lawrence Wilson on 07-08-2025 RBC (Bld) [#/Vol] 4.30 10*6/uL Low 4.6-6.2 [facility] Screening total cholesterol/ high density lipoprotein (HDL) cholesterol ratioOrdered By: Lawrence Wilson on 07-08-2025 Cholesterol.total/Choles terol in HDL [Mass ratio] 4.39 {ratio} [facility] Serum creatinine measurement (mass/volume)Ordered By: Lawrence Wilson on 07-08-2025 Creatinine [Mass/Vol] 1.14 mg/dL 0.70-1.20 [facility] Serum globulin measurementOr dered By: Lawrence Wilson on 07-08-2025 Globulin (S) [Mass/Vol] 2.8 g/dL 2.2-4.2 [facility] Serum glucose measurement (m ass/volume)Ordered By: Lawrence Wilson on 07-08-2025 Glucose [Mass/Vol] 91 mg/dL 70-99 [facility] Serum or plasma alanine simmons otransferase (ALT) measurementOrdered By: Lawrence Wilson on 07-08-2025 ALT [Catalytic activity/Vol] 20 U/L <47 [facility] Serum or plasma albumin ash urement (mass/volume)Ordered By: Lawrence Wilson on 07-08-2025 Albumin [Mass/Vol] 4.2 g/dL 3.4-4.8 [facility] Serum or plasma albumin/glob ulin mass ratioOrdered By: Lawrence Wilson on 07-08-2025 Albumin/Globulin [Mass ratio] 1.5 {ratio} 0.9-2.4 [facility] Serum or plasma alkaline alexandra sphatase measurementOrdered By: Lawrence Wilson on 07-08-2025 ALP [Catalytic activity/Vol] 76 U/L 40-129 [facility] Serum or plasma calcium ash urement (mass/volume)Ordered By: Lawrence Wilson on 07-08-2025 Calcium [Mass/Vol] 9.1 mg/dL 7.6-11.0 [facility] Serum or plasma cholesterol in HDL measurement (mass/volume)Ordered By: Lawrence Wilson on 07-08-2025 Cholesterol in HDL [Mass/Vol] 50 mg/dL >40 [facility] Comment on above: National Cholesterol Education Program (NCEP) guidelines:<40 mg/dL: Low HDL-cholesterol (major risk factor for CHD)>= 60 mg/dL: High HDL-cholesterol (negative risk factor for CHD)HDL-cholesterol is affected by a number of factors, e.g. smoking, exercise, hormones, sex and age. Serum or plasma cholesterol measurement (mass/volume)Ordered By: Lawrence Wilson on 07-08-2025 Cholesterol [Mass/Vol] 220 mg/dL High <201 [facility] Comment on above: Cholesterol level, D esirable <200 mg/dLBorderline high cholesterol 200-239 mg/dLHigh cholesterol >=240 mg/dLRecommendations of the NCEP Adult Treatment Panel for the following risk-cutoff thresholds for the [place] population. Serum or plasma ferritin yanira surement (mass/volume)Ordered By: Lawrence Wilson on 07-08-2025 Ferritin [Mass/Vol] 66 ng/mL 37-417 [facility] Serum or plasma iron saturat ion measurement (mass fraction)Ordered By: Lawrence Wilson on 07-08-2025 Iron saturation [Mass fraction] 18.0 % 9-55 [facility] Serum or plasma urea nitroge n measurement (mass/volume)Ordered By: Lawrence Wilson on 07-08-2025 Urea nitrogen [Mass/Vol] 32 mg/dL High 4-19 [facility] Sodium levelOrdered By: Lawrence Wilson on 07-08-2025 Sodium [Moles/Vol] 139 mmol/L 133-145 [facility] Total proteinOrdered By: Gerhard Wilson on 07-08-2025 Protein [Mass/Vol] 7.1 g/dL 5.9-8.4 [facility] Triglycerides measurementOrd ered By: Lawrence Wilson on 07-08-2025 Triglyceride [Mass/Vol] 139 mg/dL <199 [facility] Comment on above: The drugs N-Acetylcy steine and Metamizole may falsely depress this assay. Normal range: <150 mg/dLBorderline High: 150-199 mg/dLHigh: 200-499 mg/dLVery High: >500 mg/dL Vitamin B12 ser/plasOrdered By: Lawrence Wilson on 07-08-2025 Cobalamin (Vitamin B12) [Mass/Vol] 657 pg/mL 180-914 [facility] White blood cell (WBC) count Ordered By: Lawrence Wilson on 07-08-2025 WBC (Bld) [#/Vol] 4.6 10*3/uL 4.4-11.0 [facility] Cardiology Visit Reporton Cardiology Visit Report [facility] [address] [place] [address] OFFICE VISIT Date of Service: 06/06/25 MR#: [id number] Acct: [id number] Name: ABRAHAN CALVERT Rep #: [id number] : 1950 Provider: HARVEY shook Age/Sex: 74/M [place] [facility] [place] Status: Signed HPI HPI History of Present [...] He denies any decrease in energy level, or claudication. He does acknowledge myalgias with taking statin medications. He does not have edema, or sudden weight gain. He denies lightheadedness, dizziness, syncopal or near syncopal episodes, and headaches. Patient completed cardiac rehab, and tolerated well. Intake Vital Signs 03/01/25 07:35 05/24/25 07:20 06/06/25 08:02 Height 6 ft 3 in 6 ft 3 in 6 ft 3 in Weight: 203 lb BMI 25.3 BP 133/71 H Blood Pressure Location Lt brachial Position Sitting Respiration 18 Pulse 51 L Pulse Source Monitor Pulse Oximetry (%) 98 Oxygen Delivery Method room air Intake Visit Reasons: 3 M FU Bleach Tester Required: No Accompanied by: Self Is patient in pain?: Yes (right arm and hand s/p cardiac stent procedure) Pain scale (1-10): 3 Allergies atorvastatin Adverse Reaction (Severe, Verified 06/06/25 10:41) myalgias pitavastatin (From Livalo) Adverse Reaction (Severe, Verified 06/06/25 10:41) Myalgias rosuvastatin Adverse Reaction (Severe, Verified 06/06/25 10:41) Myalgias Medications ???Medication ???Instructions ???Recorded ???Confirmed ???Type aspirin 81 mg tablet,delayed 81 mg PO DAILY 04/28/21 06/06/25 H istory release (Adult Aspirin Regimen) ezetimibe 10 mg tablet (Zetia) 10 mg PO DAILY 04/28/21 06/06/25 H istory meloxicam 15 mg tablet (Mobic) 15 mg PO DAILY 04/28/21 06/06/25 H istory multivitamin with minerals-folic 1 tab PO DAILY 04/28/21 06/06/25 H istory acid 0.4 mg tablet (Adult One Daily Multivitamin) tamsulosin 0.4 mg capsule (Flomax) 0.4 mg PO QHS 04/28/21 06/06/25 History tadalafil 5 mg tablet (Cialis) 5 mg PO DAILY PRN sexual activity 03/04/22 06/06/25 History amlodipine 2.5 mg tablet 2.5 mg PO QDAY #30 tabs 02/05/25 0 06/06/25 Rx losartan 50 mg tablet 50 mg PO QDAY 02/05/25 06/06/25 Hi story clopidogrel 75 mg tablet 75 mg PO DAILY #90 tabs 02/20/25 0 06/06/25 Rx inclisiran 284 mg/1.5 mL 284 mg (1.5 mL) subcut [id number] 06/06/25 Rx subcutaneous syringe (Leqvio) #1.5 mL Ejection fraction %: 60 Have you fallen in the past year?: No PFSH Medical History (Reviewed 06/06/25 @ 08:23 by Nessa Melissa COMMUNICATIONS TECHNOLOGIST, COMMUNICATIONS TECHNOLOGIST-C) Essential hypertension Abnormal stress test Atherosclerotic heart disease of [place] coronary artery without angina pectoris Bilateral carotid artery disease History of prostate cancer (02/19/25) Sinus bradycardia Mixed hyperlipidemia Surgical History Presence of stent in coronary artery (03/25/25) Presence of coronary angioplasty implant and graft ( 08/11/21) History of tonsillectomy History of appendectomy History of left inguinal hernia repair Social History (Reviewed 06/06/25 @ 08:23 by Nessa Melissa COMMUNICATIONS TECHNOLOGIST, COMMUNICATIONS TECHNOLOGIST-C) Smoking Status: Never smoker alcohol intake: current [...] or black,tarry stools : Negative for hematuria Musc Musc: Positive for muscle aches/ myalgia Neuro Neuro: Negative for dizziness, lightheadedness, near syncope, syncope, frequent falls, headache(s), weakness or blurry vision Endo Endo: Negative for fatigue Cardiology Exam Const Appearance: cooperative, healthy appearing, comfortable, no acute distress and well developed Nutritional Appearance: overweight Orientation: alert, awake and oriented x3 Head Head: normal to inspec (more content not included)... Normal [facility] Venous Duplex US, Unilateral on 06-05-2025 Venous Duplex US, Unilateral [facility] [address] [place] [address] Venous Duplex US, Unilateral 06/05/25 1358 MR#: [id number] Acct: [id number] Name: ABRAHAN CALVERT Rep #: [id number] : 1950 74 From: Jony Sosa MD Attending Dr: Dr. Lawrence Wilson MD Status: R EG I Ordering Dr: Lawrence Wilson MD Date: 06/05/25 Location: [facility] Sex: M C Admitted: Reason For Study Reason For Study: Right leg swelling RIGHT LEFT GSV is normal. CFV is compressible, spontaneous, phasic, competent, CFV is compressible, spontaneous, phasic, competent and demonstrates normal augmentation. and demonstrates normal augmentation. FV is compressible, spontaneous, phasic, competent and demonstrates normal augmentation. POP V is compressible, spontaneous, phasic, competent and demonstrates normal augmentation. T/P Trunk is compressible. PTV is compressible. RT PerV is compressible. Nonvascularized structure noted in the distal calf area at area of concern. Does not appear to connect to the superficial vensous system. Procedure This is a venous duplex using B-mode, color flow and spectral Doppler. Exam performed in department. A preliminary report was called and/or faxed to Dr. Wilson. VL/Venous Duplex US, Unilateral Interpretation Summary Deep veins of the right lower extremity are patent and compressible segmentally. There is no evidence of right lower extremity deep vein thrombosis. The right great saphenous vein appears patent and compressible segmentally. Nonvascularized structure noted in the right distal calf area at area of concern. Ordering Physician: Lawrence Wilson Referring Physician: Lawrence Wilson Performed By: Linh Brunson RVT 06/05/25 1554 Date Jony Sosa MD CC: Dr. Lawrence Wilson MD Date Dictated: 06/05/25 1358 Date Transcribed: 06/05/25 1554 Adjutant General: Signed Normal [facility] Venous duplex ultrasound rep ortOrdered By: Jony Sosa on 06-05-2025 US Vein [facility] [address] [place] [address] Venous Duplex US, Unilateral 06/05/25 1358 MR#: [id number] Acct: [id number] Name: ABRAHAN CALVERT Rep #:[id number] : 1950 74 From: Jony Doshi Attending Dr: Dr. Lawrence Wilson MD Status: REG CLI Ordering Dr: Lawrence Wilson MD Date: 06/05/25 Location: CVS Sex: M C Admitted: Reason For Study Reason For Study: Right leg swelling RIGHT LEFT GSV is normal. CFV is compressible, spontaneous, phasic, competent, CFV is compressible, spontaneous, phasic, competent and demonstrates normal augmentation. and demonstrates normal augmentation. FV is compressible, spontaneous, phasic, competent and demonstrates normal augmentation. POP V is compressible, spontaneous, phasic, competent and demonstrates normal augmentation. T/P Trunk is compressible. PTV is compressible. RT PerV is compressible. Nonvascularized structure noted in the distal calf area at area of concern. Does not appear to connect to the superficial vensous system. Procedure This is a venous duplex using B-mode, color flow and spectral Doppler. Exam performed in department. A preliminary report was called and/or faxed to Dr. Wilson. VL/Venous Duplex US, Unilateral Interpretation Summary Deep veins of the right lower extremity are patent and compressible segmentally.There is no evidence of right lower extremity deep vein thrombosis. The right great saphenous vein appears patent and compressible segmentally. Nonvascularized structure noted in the right distal calf area at area of concern. Ordering Physician: Lawrence Wilson Referring Physician: Lawrence Wilson Performed By: Linh Brunson RVT 06/05/25 1554 Date _ Jony Sosa MD CC: Dr. Lawrence Wilson MD ~ Date Dictated: 06/05/25 1358 Date Transcribed: 06/05/25 1554 Adjutant General: Signed [facility] Work Phone: No Panel InformationOrdered By: George Gutierrez on 05-28-2025 [facility] [address] [place] [address] CR - Individual Treatment Plan MR#: [id number] Acct: [id number] Name: ABRAHAN CALVERT Rep #:[id number] : 1950 74 From: George HUTTON, RVT PCP: Dr. Lawrence Wilson MD DOS: Exercise - Initial Assessment Physician Prescribed Exercise Modalities: HiwoterAlix AD-7 and SciFit Stepper Nutrition - Initial Assessment Weight Mgt (Other Care) Height: 6 ft 3 in Weight:: 203 lb BMI: 25.3 Psychosocial - Initial Assess Target Goals Target Goals Referral to Behavioral Health PS - Interventions: Yes: Attend Stress Management Classes Patient Health Questionnaire PHQ-9 Screening 90-Day Re-eval Assessment: 1. Little interest or pleasure in doing things: Not at all 2. Feeling down, depressed, or hopeless: Not at all 3. Trouble falling or staying asleep, or sleeping too much: Several days 4. Feeling tired or having little energy: More than half the days 5. Poor appetite or overeating: Several days 6. Feeling bad about yourself -- or that you are a failure or have let yourself or your family down: Not at all 7. Trouble concentrating on things, such as reading the newspaper or watching television: Not at all 8. Moving or speaking so slowly that other people could have noticed. Or the opposite - being so fidgety or restless that you have been moving around a lot more than usual: Not at all 9. Thoughts that you would be better off , or of hurting yourself in some way: Not at all How difficult have these problems made it for you to do your work, take care of things at home, or get along with other people?: Not difficult at all Total Score: 4 Self-Efficacy 6-Item Scale 90-Day Re-eval Assessment: We would like to know how confident you are in doing certain activities. Please select your confidence level for: Fatigue Select Number: 8 Physical Discomfort or Pain Select Number: 8 Emotional Distress Select Number: 8 Other Symptoms or Health Problems Select Number: 8 Different Tasks and Activities Select Number: 9 Medication Select Number: 9 Total Score:: 8 Nutrition Survey Nutrition Survey Instructions Scoring Instructions Exercise - 30-day Assessment Physician Prescribed Exercise Modalities: Alix Mcfarland AD-7 and SciFit Stepper Exercise - 60-day Assessment Physician Prescribed Exercise Modalities: Alix Mcfarland AD-7 and SciFit Stepper Exercise - 90-day Assessment Visit Date of Eval: 05/24/25 Session #:: 32 Physician Prescribed Exercise Modalities: Alix Mcfarland AD-7 and SciFit Stepper Frequency: 3x/week for 12 weeks [36 sessions] Intensity: 60-80% of age predicted maximum heart rate reserve Duration: 30 - 45 minutes Current METSs:: 8.1 Target Heart Rate:: 87-116 Current RPE:: 13 Maximum Excercise HR:: 109 Resting Blood Pressure: 138/52 Maximum Exercise Blood Pressure: 170/52 EKG Type: SB-ST with rare PAC, PVC Outcomes & Goals Goals:: Verbalizes understanding of THR, RPE & goal METS by session 6, Documentsin home exercise log/reports 30 min aerobic 5 day/wk by DC, Demonstrates accurate pulse taking by DC and Other additional outcome/goals: see below Intervention & Plan Exercise Program Goals: Instruct on personal THR & RPE, Instruct on MET level & personal MET goal, Show patient to take own pulse /validate performance until accurate, Instruct on home exercise and Other additional plan/int Physical Activity Home Exercise Physical Activity - Home Exercise: Safe Exercise, Warm-up, Self-monitoring, Cool-Down, Home Exercise > 30 min Daily and Sitting Time <3 hours/daily Outcomes & Goals Outcomes/Goals: Demonstrates correct Warm-up/exercise Cool-Down (S3) if = 2.5 METs, Verbalizes symptoms of exercise intolerance by Session 3 (S3), Demonstratesafe equipment use (S3) & follows exercise prescrition (6) and Other: See below Intervention & Plan Plan/Intervention: Instruct warm-up & cool-down if exercising at > 2 METs, Instruct on symptoms of exercise intolerance & actions to take, Instruct & monitor on saf, Assess intial functional capacity & safety risk and Other See below 30-day Reassessments 30 day Reassessments:: Met Reassessment Notes & Comments:: Pt has done very well. Pr is at 8.1 METS. Pt has 4 sessions remaining. Upon graduation pt will be given his exercise prescription as well as community recourses to continue his exercise. Will continue to encourage. Exercise - Final/Discharge Physician Prescribed Exercise Modalities: Alix Mcfarland AD-7 and SciFit Stepper Nutrition - 30-Day Assessment Weight Mgt (Other Care) Height: 6 ft 3 in Weight:: 203 lb BMI: 25.3 Nutrition - 60-Day Assessment Program Goals Nutrition Program Goals Patient has diagnosis of Hyperlipidemia (ICD E78)?: Yes Visit Date of Eval: 05/24/25 Session #:: 32 Cholesterol/Lipids (Other Core Measures) Determine presence & major risk factors that modify LDL goal: Hypertension or hypertensive medication, Low HDL cholesterol <40 mg/dL*, Family history of premature CHD (more content not included)... [facility] Radiation Oncology Visiton 0 03-29-2025 Radiation Oncology Visit [facility] [place] [address] OFFICE VISIT Date of Service: 03/29/25839 MR#: [id number] Acct: [id number] Name: ABRAHAN CALVERT Rep #: [id number] : 1950 From: Tucker Perry DO Age/Sex: 74/M [place] [facility] [place] Signed Intake Vital Signs 09/28/24 08:27 [...] Abnormal stress test Atherosclerotic heart disease of [place] coronary artery without angina pectoris Bilateral carotid [...] guided prostate biopsy was performed.??? 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 Remaining 10 biopsy cores were negative for prostate cancer. 07/14/2017: Bone scan was performed.??? This (more content not included)... Normal [facility] PSA,Total- Diagnosticon 05- PSA, DIAGNOSTIC 0.84 ng/mL Normal 0.00-4.00 [facility] Comment on above: Result Comment: [...] confirm baseline values. Performed By: #### L 500.4100, L500.4050, L100.0100 #### [facility] [address] [place], [address] Absolute lymphocyte countOrd ered By: Lawrence Wilson on 03-07-2025 Lymphocytes Auto (Unsp spec) [#/Vol] 1.46 10*3/uL 0.83-4.51 [facility] Absolute neutrophil countOrd ered By: Lawrence Wilson on 03-07-2025 Neutrophils (Bld) [#/Vol] 3.4 10*3/uL 2.0-7.7 [facility] Anion gap in Serum or Plasma Ordered By: Lawrence Wilson on 03-07-2025 Anion gap [Moles/Vol] 11 mmol/L 5-15 [facility] Automated lymphocyte count a s percentage of total leukocytesOrdered By: Lawrence Wilson on 03-07-2025 Lymphocytes/100 WBC Auto (Unsp spec) 25.3 % 19- [facility] BUN/creatinine ratioOrdered By: Lawrence Wilson on 03-07-2025 Urea nitrogen/Creatinine [Mass ratio] 25.2 mg/mg High 10-20 [facility] Basophil percentageOrdered B y: Lawrence Wilson on 03-07-2025 Basophils/100 WBC (Bld) 0.9 % 0-1 [facility] Bilirubin, totalOrdered By: Lawrence Wilson on 03-07-2025 Bilirubin [Mass/Vol] 0.41 mg/dL 0.00-1.30 [facility] CBC W/Diff, Automatedon 02-13 Absolute Lymph 1.46 X10 3/uL Normal 0.83-4.51 [facility] Comment on above: Performed By: #### L 500.4100, L500.4050, L100.0100 #### [facility] [address] [place], [address] Absolute Neut 3.4 X10 3/uL Normal 2.0-7.7 [facility] Comment on above: Performed By: #### L 500.4100, L500.4050, L100.0100 #### [facility] [address] [place], [address] Basophils/100 WBC (Bld) 0.9 % Normal 0-1 [facility] Comment on above: Performed By: #### L 500.4100, L500.4050, L100.0100 #### [facility] [address] [place], [address] Eosinophils/100 WBC (Bld) 2.1 % Normal 0-5 [facility] Comment on above: Performed By: #### L 500.4100, L500.4050, L100.0100 #### [facility] [address] [place], [address] Erythrocyte distribution width (RBC) [Ratio] 14.1 % Normal 11.6-14.6 [facility] Comment on above: Performed By: #### L 500.4100, L500.4050, L100.0100 #### [facility] [address] [place], [address] Hematocrit (Bld) [Volume fraction] 36.9 % Low 40-54 [facility] Comment on above: Performed By: #### L 500.4100, L500.4050, L100.0100 #### [facility] [address] [place], [address] Hemoglobin (Bld) [Mass/Vol] 12.0 g/dL Low 13.0-16.5 [facility] Comment on above: Performed By: #### L 500.4100, L500.4050, L100.0100 #### [facility] [address] [place], [address] IG% 0.200 Normal 0.0-0.9 [facility] Comment on above: Result Comment: IG% - Immature Granulocytes (promyelocytes, myelocytes and metamyelocytes) > 1% indicates that a LEFT SHIFT is Present. Performed By: #### L 500.4100, L500.4050, L100.0100 #### [facility] [address] [place], [address] Lymphocytes/100 WBC (Bld) 25.3 % Normal 19-41 [facility] Comment on above: Performed By: #### L 500.4100, L500.4050, L100.0100 #### [facility] [address] [place], [address] MCH (RBC) [Entitic mass] 30.2 pg Normal 27.0-32.0 [facility] Comment on above: Performed By: #### L 500.4100, L500.4050, L100.0100 #### [facility] [address] [place], [address] MCHC (RBC) [Mass/Vol] 32.5 g/dL Normal 32-36 [facility] Comment on above: Performed By: #### L 500.4100, L500.4050, L100.0100 #### [facility] [address] [place], [address] MCV (RBC) [Entitic vol] 92.9 fL Normal 80-94 [facility] Comment on above: Performed By: #### L 500.4100, L500.4050, L100.0100 #### [facility] [address] [place], [address] Monocytes/100 WBC (Bld) 12.0 % High 0-10 [facility] Comment on above: Performed By: #### L 500.4100, L500.4050, L100.0100 #### [facility] [address] [place], [address] Neutrophils/100 WBC (Bld) 59.5 % Normal 47-70 [facility] Comment on above: Performed By: #### L 500.4100, L500.4050, L100.0100 #### [facility] [address] [place], [address] Nucleated RBC (Bld) [#/Vol] 0 10*3/uL Normal 0-5 [facility] Comment on above: Performed By: #### L 500.4100, L500.4050, L100.0100 #### [facility] [address] [place], [address] Platelet mean volume (Bld) [Entitic vol] 11.1 fL Normal 6.2-12.0 [facility] Comment on above: Performed By: #### L 500.4100, L500.4050, L100.0100 #### [facility] [address] [place], [address] Platelets (Bld) [#/Vol] 225 10*3/uL Normal 150-450 [facility] Comment on above: Performed By: #### L 500.4100, L500.4050, L100.0100 #### [facility] [address] [place], [address] RBC (Bld) [#/Vol] 3.97 10*6/uL Low 4.6-6.2 [facility] Comment on above: Performed By: #### L 500.4100, L500.4050, L100.0100 #### [facility] [address] [place], [address] RDW SD 48.4 fl High 35.1-43.9 [facility] Comment on above: Performed By: #### L 500.4100, L500.4050, L100.0100 #### [facility] [address] [place], [address] WBC (Bld) [#/Vol] 5.8 10*3/uL Normal 4.4-11.0 [facility] Comment on above: Performed By: #### L 500.4100, L500.4050, L100.0100 #### [facility] [address] [place], [address] Calculated very low density lipoprotein (VLDL) cholesterol measurementOrdered By: Lawrence Wilson on 03-07-2025 Calculated very low density lipoprotein (VLDL) cholesterol measurement 33 mg/dL 5-40 [facility] VLDL Cholesterol 33 mg/dL 5-40 [facility] Carbon dioxide, total [Moles /volume] in Central venous bloodOrdered By: Lawrence Wilson on 03-07-2025 CO2 [Moles/Vol] 23.4 mmol/L 21.0-32.0 [facility] Chloride assayOrdered By: Leah Wilson on 03-07-2025 Chloride [Moles/Vol] 105 mmol/L 98-108 [facility] Comprehensive Metabolic Prof ilon 03-07-2025 Albumin [Mass/Vol] 4.2 g/dL Normal 3.4-4.8 [facility] Comment on above: Performed By: #### L 500.4100, L500.4050, L100.0100 #### [facility] [address] [place], [address] Albumin/Globulin [Mass ratio] 1.4 {ratio} Normal 0.9-2.4 [facility] Comment on above: Performed By: #### L 500.4100, L500.4050, L100.0100 #### [facility] [address] [place], [address] ALK PHOS 80 U/L Normal 40-129 [facility] Comment on above: Performed By: #### L 500.4100, L500.4050, L100.0100 #### [facility] [address] [place], [address] ALT [Catalytic activity/Vol] 22 U/L Normal <=46 [facility] Comment on above: Performed By: #### L 500.4100, L500.4050, L100.0100 #### [facility] [address] [place], [address] AST [Catalytic activity/Vol] 25 U/L Normal <=37 [facility] Comment on above: Performed By: #### L 500.4100, L500.4050, L100.0100 #### [facility] [address] [place], [address] Bilirubin [Mass/Vol] 0.41 mg/dL Normal 0.00-1.30 [facility] Comment on above: Performed By: #### L 500.4100, L500.4050, L100.0100 #### [facility] [address] [place], [address] BUN/CRE 25.2 RATIO High 10-20 [facility] Comment on above: Performed By: #### L 500.4100, L500.4050, L100.0100 #### [facility] [address] [place], [address] Calcium [Mass/Vol] 8.8 mg/dL Normal 7.6-11.0 [facility] Comment on above: Performed By: #### L 500.4100, L500.4050, L100.0100 #### [facility] [address] [place], [address] Chloride [Moles/Vol] 105 mmol/L Normal 98-108 [facility] Comment on above: Performed By: #### L 500.4100, L500.4050, L100.0100 #### [facility] [address] [place], [address] CO2 [Moles/Vol] 23.4 mmol/L Normal 21.0-32.0 [facility] Comment on above: Performed By: #### L 500.4100, L500.4050, L100.0100 #### [facility] [address] [place], [address] Creatinine [Mass/Vol] 1.15 mg/dL Normal 0.70-1.20 [facility] Comment on above: Performed By: #### L 500.4100, L500.4050, L100.0100 #### [facility] [address] [place], [address] GAP 11 Normal 5-15 [facility] Comment on above: Performed By: #### L 500.4100, L500.4050, L100.0100 #### [facility] [address] [place], [address] GFR/1.73 sq M.predicted among non-blacks MDRD (S/P/Bld) [Vol rate/Area] 66 mL/min/{1.73_m2} Normal >60 [facility] Comment on above: Result Comment: mL/m in/1.73m2 CKD-EPI Creatinine Equation (2020) Performed By: #### L 500.4100, L500.4050, L100.0100 #### [facility] [address] [place], [address] Globulin (S) [Mass/Vol] 3.0 g/dL Normal 2.2-4.2 [facility] Comment on above: Performed By: #### L 500.4100, L500.4050, L100.0100 #### [facility] [address] [place], [address] Glucose [Mass/Vol] 113 mg/dL High 70-99 [facility] Comment on above: Performed By: #### L 500.4100, L500.4050, L100.0100 #### [facility] [address] [place], [address] Potassium [Moles/Vol] 4.3 mmol/L Normal 3.3-5.1 [facility] Comment on above: Performed By: #### L 500.4100, L500.4050, L100.0100 #### [facility] [address] [place], [address] Sodium [Moles/Vol] 138 mmol/L Normal 133-145 [facility] Comment on above: Performed By: #### L 500.4100, L500.4050, L100.0100 #### [facility] [address] [place], [address] T PROT 7.2 g/dL Normal 5.9-8.4 [facility] Comment on above: Performed By: #### L 500.4100, L500.4050, L100.0100 #### [facility] [address] [place], [address] Urea nitrogen [Mass/Vol] 29 mg/dL High 4-19 [facility] Comment on above: Performed By: #### L 500.4100, L500.4050, L100.0100 #### [facility] [address] [place], [address] Eosinophil percentageOrdered By: Lawrence Wilson on 03-07-2025 Eosinophils/100 WBC (Bld) 2.1 % 0-5 [facility] Erythrocyte distribution wid th (RBC) [Ratio]Ordered By: Lawrence Wilson on 03-07-2025 Erythrocyte distribution width (RBC) [Entitic vol] 48.4 fL High 35.1-43.9 [facility] Erythrocyte distribution wid th ratioOrdered By: Lawrence Wilson on 03-07-2025 Erythrocyte distribution width (RBC) [Ratio] 14.1 % 11.6-14.6 [facility] Erythrocyte distribution wid th standard deviationOrdered By: Lawrence Wilson on 03-07-2025 Erythrocyte distribution width (RBC) [Ratio] 48.4 fl High 35.1-43.9 [facility] GFR/1.73 sq M.predicted jamie g non-blacks MDRD (S/P/Bld) [Vol rate/Area]Ordered By: Lawrence Wilson on 03-07-2025 Estimated GFR (MDRD) Non-Af Amer 66 >60 [facility] Comment on above: mL/min/1.73m2 CKD-EP I Creatinine Equation (2020) Glomerular filtration rate ( GFR) estimation/1.73 sq m using serum, plasma, or whole bOrdered By: Lawrence Wilson on 03-07-2025 GFR/1.73 sq M.predicted among non-blacks MDRD (S/P/Bld) [Vol rate/Area] 66 mL/min/{1.73_m2} >60 [facility] Comment on above: mL/min/1.73m2 CKD-EP I Creatinine Equation (2020) Hematocrit Auto (Bld) [Volum e fraction]Ordered By: Lawrence Wilson on 03-07-2025 Hematocrit (Bld) [Volume fraction] 36.9 % Low 40-54 [facility] Hemoglobin measurementOrdere d By: Lawrence Wilson on 03-07-2025 Hemoglobin (Bld) [Mass/Vol] 12.0 g/dL Low 13.0-16.5 [facility] Immature granulocytes/100 WB C Auto (Bld)Ordered By: Lawrence Wilson on 03-07-2025 Immature granulocytes/100 WBC (Bld) 0.200 % 0.0-0.9 [facility] Comment on above: IG% - Immature Granu locytes (promyelocytes, myelocytes and metamyelocytes) > 1% indicates that a LEFT SHIFT is Present. LDL calc ser/plasOrdered By: Lawrence Wilson on 03-07-2025 Cholesterol in LDL [Mass/Vol] 79 mg/dL [facility] Comment on above: Upnusfbgec=897-335 m g/dL & Higher Ubjx=095 mg/dL or greater LDL Cholesterol, Calculated 79 mg/dL [facility] Comment on above: Pggrimndeb=399-074 m g/dL & Higher Thhs=126 mg/dL or greater Laboratory - Chemistry and C hemistry - challengeOrdered By: Lawrence Wilson on 03-07-2025 AST [Catalytic activity/Vol] 25 U/L <38 [facility] Lipid Profileon 03-07-2025 CHOL:HDL 3.32 Normal [facility] Comment on above: Performed By: #### L 500.4100, L500.4050, L100.0100 #### [facility] [place], [address] Cholesterol [Mass/Vol] 160 mg/dL Normal <=200 [facility] Comment on above: Result Comment: Chol esterol level, Desirable <200 mg/dL Borderline high cholesterol 200-239 mg/dL High cholesterol >=240 mg/dL Recommendations of the NCEP Adult Treatment Panel for the following risk-cutoff thresholds for the [place] population. Performed By: #### L 500.4100, L500.4050, L100.0100 #### [facility] [address] [place], [address] Cholesterol in HDL [Mass/Vol] 48 mg/dL Normal [facility] Comment on above: Result Comment: Camilla onal Cholesterol Education Program (NCEP) guidelines: <40 mg/dL: Low HDL-cholesterol (major risk factor for CHD) >= 60 mg/dL: High HDL-cholesterol (negative risk factor for CHD) HDL-cholesterol is affected by a number of factors, e.g. smoking, exercise, hormones, sex and age. Performed By: #### L 500.4100, L500.4050, L100.0100 #### [facility] [address] [place], [address] Cholesterol in LDL [Mass/Vol] 79 mg/dL Normal [facility] Comment on above: Result Comment: Bord powsog=651-910 mg/dL Higher Gvdr=640 mg/dL or greater Performed By: #### L 500.4100, L500.4050, L100.0100 #### [facility] [address] [place], [address] Cholesterol in VLDL [Mass/Vol] 33 mg/dL Normal 5-40 [facility] Comment on above: Performed By: #### L 500.4100, L500.4050, L100.0100 #### [facility] [address] [place], [address] Triglyceride [Mass/Vol] 163 mg/dL Normal [facility] Comment on above: Result Comment: The drugs N-Acetylcysteine and Metamizole may falsely depress this assay. Normal range: <150 mg/dL Borderline High: 150-199 mg/dL High: 200-499 mg/dL Very High: >500 mg/dL Performed By: #### L 500.4100, L500.4050, L100.0100 #### [facility] [address] [place], [address] Lymphocytes Auto (Unsp spec) [#/Vol]Ordered By: Lawrence Wilson on 03-07-2025 Lymphocytes (Bld) [#/Vol] 1.46 10*3/uL 0.83-4.51 [facility] Lymphocytes/100 WBC Auto (Un sp spec)Ordered By: Lawrence Wilson on 03-07-2025 Lymphocytes/100 WBC (Bld) 25.3 % 19-41 [facility] MCV (mean corpuscular volume ) determinationOrdered By: Lawrence Wilson on 03-07-2025 MCV (RBC) [Entitic vol] 92.9 fL 80-94 [facility] Mean corpuscular hemoglobin (MCH) determinationOrdered By: Lawrence Wilson on 03-07-2025 MCH (RBC) [Entitic mass] 30.2 pg 27.0-32.0 [facility] Mean corpuscular hemoglobin concentration (MCHC) determinationOrdered By: Lawrence Wilson on 03-07-2025 MCHC (RBC) [Mass/Vol] 32.5 g/dL 32-36 [facility] Mean platelet volume determi nationOrdered By: Lawrence Wilson on 03-07-2025 Platelet mean volume (Bld) [Entitic vol] 11.1 fL 6.2-12.0 [facility] Monocyte percentageOrdered B y: Lawrence Wilson on 03-07-2025 Monocytes/100 WBC (Bld) 12.0 % High 0-10 [facility] Neutrophil percentageOrdered By: Lawrence Wilson on 03-07-2025 Neutrophils/100 WBC (Bld) 59.5 % 47-70 [facility] Nucleated red blood cell per centageOrdered By: Lawrence Wilson on 03-07-2025 Nucleated RBC/100 WBC (Bld) [Ratio] 0 % 0-5 [facility] Platelet countOrdered By: Leah Wilson on 03-07-2025 Platelets (Bld) [#/Vol] 225 10*3/uL 150-450 [facility] Potassium (Unsp spec) [Mass/ Vol]Ordered By: Lawrence Wilson on 03-07-2025 Potassium [Moles/Vol] 4.3 mmol/L 3.3-5.1 [facility] Potassium measurement (mass/ volume)Ordered By: Lawrence Wilson on 03-07-2025 Potassium (Unsp spec) [Mass/Vol] 4.3 mmol/L 3.3-5.1 [facility] RBC Auto (Bld) [#/Vol]Ordere d By: Lawrence Wilson on 03-07-2025 RBC (Bld) [#/Vol] 3.97 10*6/uL Low 4.6-6.2 [facility] Screening total cholesterol/ high density lipoprotein (HDL) cholesterol ratioOrdered By: Lawrence Wilson on 03-07-2025 Cholesterol.total/Choles terol in HDL [Mass ratio] 3.32 {ratio} [facility] Serum creatinine measurement (mass/volume)Ordered By: Lawrence Wilson on 03-07-2025 Creatinine [Mass/Vol] 1.15 mg/dL 0.70-1.20 [facility] Serum globulin measurementOr dered By: Lawrence Wilson on 03-07-2025 Globulin (S) [Mass/Vol] 3.0 g/dL 2.2-4.2 [facility] Serum glucose measurement (m ass/volume)Ordered By: Lawrence Wilson on 03-07-2025 Glucose [Mass/Vol] 113 mg/dL High 70-99 [facility] Serum or plasma alanine simmons otransferase (ALT) measurementOrdered By: Lawrence Wilson on 03-07-2025 ALT [Catalytic activity/Vol] 22 U/L <47 [facility] Serum or plasma albumin ash urement (mass/volume)Ordered By: Lawrence Wilson on 03-07-2025 Albumin [Mass/Vol] 4.2 g/dL 3.4-4.8 [facility] Serum or plasma albumin/glob ulin mass ratioOrdered By: Lawrence Wilson on 03-07-2025 Albumin/Globulin [Mass ratio] 1.4 {ratio} 0.9-2.4 [facility] Serum or plasma alkaline alexandra sphatase measurementOrdered By: Lawrence Wilson on 03-07-2025 ALP [Catalytic activity/Vol] 80 U/L 40-129 [facility] Serum or plasma calcium ash urement (mass/volume)Ordered By: Lawrence Wilson on 03-07-2025 Calcium [Mass/Vol] 8.8 mg/dL 7.6-11.0 [facility] Serum or plasma cholesterol in HDL measurement (mass/volume)Ordered By: Lawrence Wilson on 03-07-2025 Cholesterol in HDL [Mass/Vol] 48 mg/dL >40 [facility] Comment on above: National Cholesterol Education Program (NCEP) guidelines:<40 mg/dL: Low HDL-cholesterol (major risk factor for CHD)>= 60 mg/dL: High HDL-cholesterol (negative risk factor for CHD)HDL-cholesterol is affected by a number of factors, e.g. smoking, exercise, hormones, sex and age. Serum or plasma cholesterol measurement (mass/volume)Ordered By: Lawrence Wilson on 03-07-2025 Cholesterol [Mass/Vol] 160 mg/dL <201 [facility] Comment on above: Cholesterol level, D esirable <200 mg/dLBorderline high cholesterol 200-239 mg/dLHigh cholesterol >=240 mg/dLRecommendations of the NCEP Adult Treatment Panel for the following risk-cutoff thresholds for the [place] population. Serum or plasma urea nitroge n measurement (mass/volume)Ordered By: Lawrence Wilson on 03-07-2025 Urea nitrogen [Mass/Vol] 29 mg/dL High 4-19 [facility] Sodium levelOrdered By: Lawrence Wilson on 03-07-2025 Sodium [Moles/Vol] 138 mmol/L 133-145 [facility] Total proteinOrdered By: Gerhard Wilson on 03-07-2025 Protein [Mass/Vol] 7.2 g/dL 5.9-8.4 [facility] Triglycerides measurementOrd ered By: Lawrence Wilson on 03-07-2025 Triglyceride [Mass/Vol] 163 mg/dL <199 [facility] Comment on above: The drugs N-Acetylcy steine and Metamizole may falsely depress this assay. Normal range: <150 mg/dLBorderline High: 150-199 mg/dLHigh: 200-499 mg/dLVery High: >500 mg/dL White blood cell (WBC) count Ordered By: Lawrence Wilson on 03-07-2025 WBC (Bld) [#/Vol] 5.8 10*3/uL 4.4-11.0 [facility] Cardiology Visit Reporton Cardiology Visit Report [facility] [address] [place] [address] OFFICE VISIT Date of Service: 03/01/25 MR#: [id number] Acct: [id number] Name: ABRAHAN CALVERT Rep #: [id number] : 1950 Provider: HARVEY shook Age/Sex: 74/M Location: [facility] Status: Signed HPI HPI History of Present [...] Visit Reasons: 1 WK FU POST CATH Bleach Tester Required: No Is patient in pain?: [...] No Nurse's Note: unable to confirm medications [facility] Medical History Essential hypertension Abnormal stress test Presence of stent in coronary artery ( 08/11/21) Atherosclerotic heart disease of [place] coronary artery without angina pectoris Bilateral carotid [...] Chest inspection: (more content not included)... Normal [facility] ACT Activated Clotting Timeo n 02-27-2025 ACTk CLOT TIME 233 sec High 74-137 [facility] Comment on above: Performed By: #### L 9100.0100 #### [facility] [address] [facility] [place], [address] CR - History AND Physicalon 02-27-2025 CR - History & Physical [facility] Cardiac Rehab [address] [place] [address] CR - History Physical MR#: [id number] Acct: [id number] Name: ABRAHAN CALVERT Rep #: [id number] : 1950 74 From: George Bravo BS, [...] Do you have a Healthcare Power of Workers Compensation Attorney?: Yes Living Will: Yes Advance Directives Information [...] Dr. Taylor 08/11/21 Atherosclerotic heart disease of [place] coronary artery without angina pectoris I25.10 Bilateral [...] Height: 6 (more content not included)... Normal [facility] 12 Lead EKGon 02-20-2025 12 Lead EKG [facility] Cardiovascular Services [address] [place] [address] 12 Lead EKG 02/20/25 0530 MR#: [id number] Acct: [id number] Name: ABRAHAN CALVERT Rep #: [id number] : 1950 74 From: Michael Freeman MD Attending Dr: Dr. Michael Freeman MD Status: DIS I NO Ordering Dr: Maged Watts MD Date: 02/20/25 Location: [facility] Sex: M C Admitted: 02/19/25 Test Reason [...] No significant change was found Confirmed by MICHAEL FREEMAN MD ([id number]), newspaper copy editor MEGAN CORCORAN ([id number]) on 02/21/2025 8:44:37 AM Referred By: Michael Freeman Confirmed By: MICHAEL FREEMAN MD 02/21/25 0844 Date Michael Freeman MD CC: Dr. Maged Watts MD; Dr. Michael Freeman MD; Dr. Lawrence Wilson MD Signed Normal [facility] Anion gap in Serum or Plasma Ordered By: Maged Watts on 02-20-2025 Anion gap [Moles/Vol] 9 mmol/L 5-15 [facility] BUN/creatinine ratioOrdered By: Maged Watts on 02-20-2025 Urea nitrogen/Creatinine [Mass ratio] 21.6 mg/mg High 10-20 [facility] Bilirubin, totalOrdered By: Maged Watts on 02-20-2025 Bilirubin [Mass/Vol] 0.62 mg/dL 0.00-1.30 [facility] CBC-Complete Blood Cnt No Di ffon 02-20-2025 Erythrocyte distribution width (RBC) [Ratio] 13.8 % Normal 11.6-14.6 [facility] Comment on above: Performed By: #### L 503.6550, L503.6030, L503.0106, L501.9940 #### [facility] [address] [place], [address] Hematocrit (Bld) [Volume fraction] 34.9 % Low 40-54 [facility] Comment on above: Performed By: #### L 503.6550, L503.6030, L503.0106, L501.9940 #### [facility] [address] [place], [address] Hemoglobin (Bld) [Mass/Vol] 11.8 g/dL Low 13.0-16.5 [facility] Comment on above: Performed By: #### L 503.6550, L503.6030, L503.0106, L501.9940 #### [facility] [address] [place], [address] MCH (RBC) [Entitic mass] 30.3 pg Normal 27.0-32.0 [facility] Comment on above: Performed By: #### L 503.6550, L503.6030, L503.0106, L501.9940 #### [facility] [address] [place], [address] MCHC (RBC) [Mass/Vol] 33.8 g/dL Normal 32-36 [facility] Comment on above: Performed By: #### L 503.6550, L503.6030, L503.0106, L501.9940 #### [facility] [address] [place], [address] MCV (RBC) [Entitic vol] 89.7 fL Normal 80-94 [facility] Comment on above: Performed By: #### L 503.6550, L503.6030, L503.0106, L501.9940 #### [facility] [address] [place], [address] Platelet mean volume (Bld) [Entitic vol] 10.4 fL Normal 6.2-12.0 [facility] Comment on above: Performed By: #### L 503.6550, L503.6030, L503.0106, L501.9940 #### [facility] [address] [place], [address] Platelets (Bld) [#/Vol] 215 10*3/uL Normal 150-450 [facility] Comment on above: Performed By: #### L 503.6550, L503.6030, L503.0106, L501.9940 #### [facility] [address] [place], [address] RBC (Bld) [#/Vol] 3.89 10*6/uL Low 4.6-6.2 [facility] Comment on above: Performed By: #### L 503.6550, L503.6030, L503.0106, L501.9940 #### [facility] [address] [place], [address] RDW SD 45.1 fl High 35.1-43.9 [facility] Comment on above: Performed By: #### L 503.6550, L503.6030, L503.0106, L501.9940 #### [facility] [address] [place], [address] WBC (Bld) [#/Vol] 5.4 10*3/uL Normal 4.4-11.0 [facility] Comment on above: Performed By: #### L 503.6550, L503.6030, L503.0106, L501.9940 #### [facility] [address] [place], [address] Carbon dioxide, total [Moles /volume] in Central venous bloodOrdered By: Maged Watts on 02-20-2025 CO2 [Moles/Vol] 21.4 mmol/L 21.0-32.0 [facility] Cardiac rehabilitation repor tOrdered By: Oren Sultana on 02-20-2025 Study report [facility] Cardiac Rehab [address] [place] [address] CR: Phase I Assessment MR#: [id number] Acct: [id number] Name: ABRAHAN CALVERT Rep #:[id number] : 1950 74 From: Oren Sultana PCP: Dr. Lawrence Wilson MD DOS: 07/08 Patient Communication Patient Information Former Patient:: Phase I PHII Cardiac Rehab Discussed with Patient:: Yes Guide to Cardiac Rehab Given to Patient:: Yes Cardiac Rehab Facility Choice List Given to Patient:: Yes Communication to Cardiac Rehab Choice Program [facility] CR PHII:: Communication Given to CR Silica Filter Operator:: Maged Watts Phase II Cardiac Rehab:: Yes Sessions:: 36 sessions - 3 days/wk, 12 weeks Cardiac Rehabilitation Info Program Information Cardiac Rehabilitation Program Information: Cardiac Rehab The cardiac rehab team at [facility] consists of highly skilled exercise [...] your progress with you and report toyour [facility] physician(s). Cardiac Rehab is proven to help reduce readmissions, improve functional capacityand lower recurrence of problems with your heart. Our Cardiac Rehab program is Certified by the [place] Association of Cardio-Vascular and Pulmonary Rehabilitation (AACVPR) and Accredited by the [place] [employer] through our Chest Pain [...] Cosigner Signature: Date _ CC: ~ Signed [facility] Chloride assayOrdered By: Chace Watts on 02-20-2025 Chloride [Moles/Vol] 107 mmol/L 98-108 [facility] Comprehensive Metabolic Prof ilon 02-20-2025 Albumin [Mass/Vol] 3.7 g/dL Normal 3.4-4.8 [facility] Comment on above: Performed By: #### L 503.6550, L503.6030, L503.0106, L501.9940 #### [facility] [address] [place], [place], [address] Albumin/Globulin [Mass ratio] 1.4 {ratio} Normal 0.9-2.4 [facility] Comment on above: Performed By: #### L 503.6550, L503.6030, L503.0106, L501.9940 #### [facility] [address] [place], [address] ALK PHOS 72 U/L Normal 40-129 [facility] Comment on above: Performed By: #### L 503.6550, L503.6030, L503.0106, L501.9940 #### [facility] [address] [place], [address] ALT [Catalytic activity/Vol] 18 U/L Normal <=46 [facility] Comment on above: Performed By: #### L 503.6550, L503.6030, L503.0106, L501.9940 #### [facility] [address] [place], [address] AST [Catalytic activity/Vol] 20 U/L Normal <=37 [facility] Comment on above: Performed By: #### L 503.6550, L503.6030, L503.0106, L501.9940 #### [facility] [address] [place], [address] Bilirubin [Mass/Vol] 0.62 mg/dL Normal 0.00-1.30 [facility] Comment on above: Performed By: #### L 503.6550, L503.6030, L503.0106, L501.9940 #### [facility] [address] [place], [address] BUN/CRE 21.6 RATIO High 10-20 [facility] Comment on above: Performed By: #### L 503.6550, L503.6030, L503.0106, L501.9940 #### [facility] [address] [place], [address] Calcium [Mass/Vol] 8.7 mg/dL Normal 7.6-11.0 [facility] Comment on above: Performed By: #### L 503.6550, L503.6030, L503.0106, L501.9940 #### [facility] [address] [place], [address] Chloride [Moles/Vol] 107 mmol/L Normal 98-108 [facility] Comment on above: Performed By: #### L 503.6550, L503.6030, L503.0106, L501.9940 #### [facility] [address] [place], [address] CO2 [Moles/Vol] 21.4 mmol/L Normal 21.0-32.0 [facility] Comment on above: Performed By: #### L 503.6550, L503.6030, L503.0106, L501.9940 #### [facility] [address] [place], [address] Creatinine [Mass/Vol] 1.07 mg/dL Normal 0.70-1.20 [facility] Comment on above: Performed By: #### L 503.6550, L503.6030, L503.0106, L501.9940 #### [facility] [address] [place], [address] ECRCL 71.29 ml/min Normal 50-250 [facility] Comment on above: Performed By: #### L 503.6550, L503.6030, L503.0106, L501.9940 #### [facility] [address] [place], [address] GAP 9 Normal 5-15 [facility] Comment on above: Performed By: #### L 503.6550, L503.6030, L503.0106, L501.9940 #### [facility] [address] [place], [address] GFR/1.73 sq M.predicted among non-blacks MDRD (S/P/Bld) [Vol rate/Area] 72 mL/min/{1.73_m2} Normal >60 [facility] Comment on above: Result Comment: mL/m in/1.73m2 CKD-EPI Creatinine Equation (2020) Performed By: #### L 503.6550, L503.6030, L503.0106, L501.9940 #### [facility] [address] [place], [address] Globulin (S) [Mass/Vol] 2.6 g/dL Normal 2.2-4.2 [facility] Comment on above: Performed By: #### L 503.6550, L503.6030, L503.0106, L501.9940 #### [facility] [address] [place], [address] Glucose [Mass/Vol] 89 mg/dL Normal 70-99 [facility] Comment on above: Performed By: #### L 503.6550, L503.6030, L503.0106, L501.9940 #### [facility] [address] [place], [address] Potassium [Moles/Vol] 4.2 mmol/L Normal 3.3-5.1 [facility] Comment on above: Performed By: #### L 503.6550, L503.6030, L503.0106, L501.9940 #### [facility] [address] [place], [address] Sodium [Moles/Vol] 137 mmol/L Normal 133-145 [facility] Comment on above: Performed By: #### L 503.6550, L503.6030, L503.0106, L501.9940 #### [facility] [address] [place], [address] T PROT 6.3 g/dL Normal 5.9-8.4 [facility] Comment on above: Performed By: #### L 503.6550, L503.6030, L503.0106, L501.9940 #### [facility] [address] [place], [address] Urea nitrogen [Mass/Vol] 23 mg/dL High 4-19 [facility] Comment on above: Performed By: #### L 503.6550, L503.6030, L503.0106, L501.9940 #### [facility] [address] [place], [address] Discharge Instructionon 04-0 Discharge Instruction [facility] Medical Records Department [address] [place] [address] Instructions for Home/Discharge Instructions 02/20/25 0740 MR#: [id number] Acct: [id number] Name: ABRAHNA CALVERT Rep #: [id number] : 1950 74 From: Michael Freeman MD [...] If this happens, a large, firm area goose egg under the skin will appear. If any [...] CC: Dr. Lawrence Wilson MD Signed Normal [facility] Erythrocyte distribution wid th (RBC) [Ratio]Ordered By: Maged Watts on 02-20-2025 Erythrocyte distribution width (RBC) [Entitic vol] 45.1 fL High 35.1-43.9 [facility] Erythrocyte distribution wid th ratioOrdered By: Maged Watts on 02-20-2025 Erythrocyte distribution width (RBC) [Ratio] 13.8 % 11.6-14.6 [facility] Erythrocyte distribution wid th standard deviationOrdered By: Maged Watts on 02-20-2025 Erythrocyte distribution width (RBC) [Ratio] 45.1 fl High 35.1-43.9 [facility] Estimation of creatinine larua aranceOrdered By: Maged Watts on 02-20-2025 Estimated Creatinine Clearance Calc 71.29 ml/min 50-250 [facility] GFR/1.73 sq M.predicted jamie g non-blacks MDRD (S/P/Bld) [Vol rate/Area]Ordered By: Maged Watts on 02-20-2025 Estimated GFR (MDRD) Non-Af Amer 72 >60 [facility] Comment on above: mL/min/1.73m2 CKD-EP I Creatinine Equation (2020) Glomerular filtration rate ( GFR) estimation/1.73 sq m using serum, plasma, or whole bOrdered By: Maged Watts on 02-20-2025 GFR/1.73 sq M.predicted among non-blacks MDRD (S/P/Bld) [Vol rate/Area] 72 mL/min/{1.73_m2} >60 [facility] Comment on above: mL/min/1.73m2 CKD-EP I Creatinine Equation (2020) Hematocrit Auto (Bld) [Volum e fraction]Ordered By: Maged Watts on 02-20-2025 Hematocrit (Bld) [Volume fraction] 34.9 % Low 40-54 [facility] Hemoglobin measurementOrdere d By: Maged Watts on 02-20-2025 Hemoglobin (Bld) [Mass/Vol] 11.8 g/dL Low 13.0-16.5 [facility] Laboratory - Chemistry and C hemistry - challengeOrdered By: Maged Watts on 02-20-2025 AST [Catalytic activity/Vol] 20 U/L <38 [facility] MCV (mean corpuscular volume ) determinationOrdered By: Maged Watts on 02-20-2025 MCV (RBC) [Entitic vol] 89.7 fL 80-94 [facility] Mean corpuscular hemoglobin (MCH) determinationOrdered By: Maged Watts on 02-20-2025 MCH (RBC) [Entitic mass] 30.3 pg 27.0-32.0 [facility] Mean corpuscular hemoglobin concentration (MCHC) determinationOrdered By: Maged Watts on 02-20-2025 MCHC (RBC) [Mass/Vol] 33.8 g/dL 32-36 [facility] Mean platelet volume determi nationOrdered By: Maged Watts on 02-20-2025 Platelet mean volume (Bld) [Entitic vol] 10.4 fL 6.2-12.0 [facility] Platelet countOrdered By: Chace Watts on 02-20-2025 Platelets (Bld) [#/Vol] 215 10*3/uL 150-450 [facility] Potassium (Unsp spec) [Mass/ Vol]Ordered By: Maged Watts on 02-20-2025 Potassium [Moles/Vol] 4.2 mmol/L 3.3-5.1 [facility] Potassium measurement (mass/ volume)Ordered By: Maged Watts on 02-20-2025 Potassium (Unsp spec) [Mass/Vol] 4.2 mmol/L 3.3-5.1 [facility] RBC Auto (Bld) [#/Vol]Ordere d By: Maged Watts on 02-20-2025 RBC (Bld) [#/Vol] 3.89 10*6/uL Low 4.6-6.2 [facility] Serum creatinine measurement (mass/volume)Ordered By: Maged Watts on 02-20-2025 Creatinine [Mass/Vol] 1.07 mg/dL 0.70-1.20 [facility] Serum globulin measurementOr dered By: Maged Watts on 02-20-2025 Globulin (S) [Mass/Vol] 2.6 g/dL 2.2-4.2 [facility] Serum glucose measurement (m ass/volume)Ordered By: Maged Watts on 02-20-2025 Glucose [Mass/Vol] 89 mg/dL 70-99 [facility] Serum or plasma alanine simmons otransferase (ALT) measurementOrdered By: Maged Watts on 02-20-2025 ALT [Catalytic activity/Vol] 18 U/L <47 [facility] Serum or plasma albumin ash urement (mass/volume)Ordered By: Maged Watts on 02-20-2025 Albumin [Mass/Vol] 3.7 g/dL 3.4-4.8 [facility] Serum or plasma albumin/glob ulin mass ratioOrdered By: Maged Watts on 02-20-2025 Albumin/Globulin [Mass ratio] 1.4 {ratio} 0.9-2.4 [facility] Serum or plasma alkaline alexandra sphatase measurementOrdered By: Maged Watts on 02-20-2025 ALP [Catalytic activity/Vol] 72 U/L 40-129 [facility] Serum or plasma calcium ash urement (mass/volume)Ordered By: Maged Watts on 02-20-2025 Calcium [Mass/Vol] 8.7 mg/dL 7.6-11.0 [facility] Serum or plasma urea nitroge n measurement (mass/volume)Ordered By: Maged Watts on 02-20-2025 Urea nitrogen [Mass/Vol] 23 mg/dL High 4-19 [facility] Sodium levelOrdered By: Yvon Watts on 02-20-2025 Sodium [Moles/Vol] 137 mmol/L 133-145 [facility] Total proteinOrdered By: Bernardo Watts on 02-20-2025 Protein [Mass/Vol] 6.3 g/dL 5.9-8.4 [facility] White blood cell (WBC) count Ordered By: Maged Watts on 02-20-2025 WBC (Bld) [#/Vol] 5.4 10*3/uL 4.4-11.0 [facility] ACT Activated Clotting Timeo n 02-19-2025 ACTk CLOT TIME 245 sec High 74-137 [facility] Comment on above: Performed By: #### L 500.4100, L500.4050, L100.0100 #### [facility] [address] [place], [address] Activated clotting timeOrder ed By: Michael Freeman on 02-19-2025 Activated Clotting Time 245 sec High 74-137 [facility] Cardiac Cath Diagnosticon Cardiac Cath Diagnostic [facility] Imaging Services [address] [place] [address] Cardiac Cath Diagnostic MR#: [id number] Acct: [id number] Name: ABRAHAN CALVERT Rep #: [id number] : 1950 74 From: Michael Freeman MD PCP: Dr. Lawrence Wilson MD Status[place] [facility] [place] Name: ABRAHAN CALVERT Study Date: 02/19/2025 Performing: Michael Freeman MD Ht: 75 inches 190.5 cm : 1950 Wt: 203 lbs 92.08 kg Age: 74 Gender: male BSA: 2.21 PROCEDURE(S) PERFORMED DC01-(49873)LHC/COR/ LV CLINICAL PROFILE AND INDICATIONS Indications: Suspected [...] multiple views using a 5 Fr. 4.0 Castalia catheter. Right Coronary Artery selective angiography was then performed in multiple views using a 5 Fr. 4.0 Castalia catheter. Left Ventriculography was performed in RUIZ [...] 08:28:28 Michael Freeman MD 02/19/25827 Date Michael Freeman MD Cosigner Signature: Date (if indicated) CC: Dr. Michael Freeman MD; Dr. Lawrence Wilson MD Date Dictated: 02/19/25 0753 Date Transcribed: 02/19/25827 Adjutant General: [place] Signed Normal [facility] Cardiac Cath Interventionon 02-19-2025 Cardiac Cath Intervention [facility] Imaging Services [address] [place] [address] Cardiac Cath Intervention MR#: [id number] Acct: [id number] Name: ABRAHAN CALVERT Rep #: [id number] : 1950 74 From: Michael Freeman MD PCP: Dr. Lawrence Wilson MD Status[place] [facility] Patient Name: ABRAHAN CALVERT Study Date: 02/19/2025 Performing: Maged Watts MD Ht: 75 inches 190.5 cm : 1950 Wt: 203 lbs 92.08 kg Age: 74 Gender: male BSA: 2.21 PROCEDURE(S) PERFORMED IC12-(88610/C9600)DE S W/WO PTCA, SINGLE CORONARY ARTERY CLINICAL PROFILE AND CO-MORBIDITIES Indications: Suspected CAD Heart Failure: None Stress/Imaging Date: 02/01/25 Stress Test with SPECT MPI: Positive Intermediate Risk CAD Presentations: Stable angina. CONCLUSIONS Successful SHERIN Mid LAD using Foster [place] 3.0x15 mm, optimized proximally using 3.5 mm [...] multiple views using a 5 Fr. 4.0 Castalia catheter. Right Coronary Artery selective angiography was then performed in multiple views using a 5 Fr. 4.0 Castalia catheter. Left Ventriculography was performed in RUZI projection using a 5 Fr. Pigtail catheter. LV to AO pullback pressures were then recorded.The images were reviewed and options discussed. A decision was then made to proceed with an Intervention, IVUS or other adjunct procedure. XB 3.0 Guide catheter was inserted and engaged into the LCA. Runthrough Guide wire was advanced to the LAD. [place] Foster 3.0x15 Drug Eluting stent was inserted. NC [...] Cordis 6 Fr XB3.0 100cm Guide Catheter Strikeface 3.0 x 15 ROSAS FRONTIER SHERIN Mark [...] Maged Watts MD 02/19/25 0918 Date Michael Freeman MD Cosigner Signature: Date (if indicated) CC: Dr. Michael Freeman MD; Dr. Lawrence Wilson MD Date Dictated: 02/19/253 Date Transcribed: 02/19/25916 Adjutant General: [place] Signed Normal [facility] Cardiac catheterization repo rtOrdered By: Michael Freeman on 02-19-2025 Cardiac catheterization study [facility] Imaging Services [address] [place] [address] Cardiac Cath Intervention MR#: [id number] Acct: [id number] Name: ABRAHAN CALVERT Rep #:[id number] : 1950 74 From: Michael Freeman MD PCP: Dr. Lawrence Wilson MD Status:[facility] Patient Name: ABRAHAN CALVERT Study Date: 02/19/2025 Performing: Maged Watts MD Ht: 75 inches 190.5 cm : 1950 Wt: 203 lbs 92.08 kg Age: 74 Gender: male BSA: 2.21 PROCEDURE(S) PERFORMED IC12-(65589/C9600)DE S W/WO PTCA, SINGLE CORONARY ARTERY CLINICAL PROFILE AND CO-MORBIDITIES Indications: Suspected CAD Heart Failure: None Stress/Imaging Date: 02/01/25 Stress Test with SPECT MPI: Positive Intermediate Risk CAD Presentations: Stable angina. CONCLUSIONS Successful SHERIN Mid LAD using Rosas [place] 3.0x15 mm, optimized proximally using 3.5 mm [...] multiple views using a 5 Fr. 4.0 Castalia catheter. Right Coronary Artery selective angiography was then performed in multiple views using a 5 Fr. 4.0 Castalia catheter. Left Ventriculography was performed in RUIZ projection using a 5 Fr. Pigtail catheter. LV to AO pullback pressures were then recorded.The images were reviewed and options discussed. A decision was then made to proceed with an Intervention, IVUS or other adjunct procedure. XB 3.0 Guide catheter was inserted and engaged into the LCA. Runthrough Guide wire was advanced to the LAD. [place] Rosas 3.0x15 Drug Eluting stent was inserted. [...] MD On 02/19/2025 09:17:51 Maged Watts MD 02/19/25917 Date _ Michael Freeman MD Cosigner Signature: Date _ (if indicated) CC: Dr. Michael Freeman MD; Dr. Lawrence Wilson MD ~ Date Dictated: 02/19/25 075 Date Transcribed: 02/19/25916 Adjutant General: [place] Signed [facility] Work Phone: Cardiac catheterization study [facility] Imaging Services [address] [place] [address] Cardiac Cath Diagnostic MR#: [id number] Acct: [id number] Name: ABRAHAN CALVERT Rep #:[id number] : 1950 74 From: Michael Freeman MD PCP: Dr. Lawrence Wilson MD Status:RE [facility] Patient Name: ABRAHAN CALVERT Study Date: 02/19/2025 Performing: Michael Freeman MD Ht: 75 inches 190.5 cm : 1950 Wt: 203 lbs 92.08 kg Age: 74 Gender: male BSA: 2.21 PROCEDURE(S) PERFORMED DC01-(99834)LHC/COR/ LV CLINICAL PROFILE AND INDICATIONS Indications: Suspected [...] multiple views using a 5 Fr. 4.0 Castalia catheter. Right Coronary Artery selective angiography was then performed in multiple views using a 5 Fr. 4.0 Castalia catheter. Left Ventriculography was performed in RUIZ [...] Lawrence Wilson MD ~ Date Dictated: 02/19/25 0753 Date Transcribed: 02/19/25827 Adjutant General: [place] Signed [facility] Work Phone: Absolute lymphocyte countOrd ered By: Mai Rock on 02-06-2025 Lymphocytes Auto (Unsp spec) [#/Vol] 1.05 10*3/uL 0.83-4.51 [facility] Absolute neutrophil countOrd ered By: Mai Rock on 02-06-2025 Neutrophils (Bld) [#/Vol] 3.1 10*3/uL 2.0-7.7 [facility] Activated partial thrombopla stin time (aPTT) in platelet poor plasma by coagulation aOrdered By: Mai Rock on 02-06-2025 aPTT Coag (PPP) [Time] 26.7 s 24.1-36.2 [facility] Anion gap in Serum or Plasma Ordered By: Mai Rock on 02-06-2025 Anion gap [Moles/Vol] 11 mmol/L 5- [facility] Automated lymphocyte count a s percentage of total leukocytesOrdered By: Mai Rock on 02-06-2025 Lymphocytes/100 WBC Auto (Unsp spec) 21.4 % [facility] BUN/creatinine ratioOrdered By: Mai Rock on 02-06-2025 Urea nitrogen/Creatinine [Mass ratio] 22.0 mg/mg High 10- [facility] Basic Metabolic Profile (BMP )on 02-06-2025 BUN/CRE 22.0 RATIO High 10- [facility] Comment on above: Performed By: #### L 500.4100, L500.4050, L100.0100 #### [facility] [address] [place], [address] Calcium [Mass/Vol] 9.5 mg/dL Normal 7.6-11.0 [facility] Comment on above: Performed By: #### L 500.4100, L500.4050, L100.0100 #### [facility] [address] [place], [address] Chloride [Moles/Vol] 103 mmol/L Normal 98-108 [facility] Comment on above: Performed By: #### L 500.4100, L500.4050, L100.0100 #### [facility] [address] [place], [address] CO2 [Moles/Vol] 26.0 mmol/L Normal 21.0-32.0 [facility] Comment on above: Performed By: #### L 500.4100, L500.4050, L100.0100 #### [facility] [address] [place], [address] Creatinine [Mass/Vol] 1.14 mg/dL Normal 0.70-1.20 [facility] Comment on above: Performed By: #### L 500.4100, L500.4050, L100.0100 #### [facility] [address] [place], [address] GAP 11 Normal 5-15 [facility] Comment on above: Performed By: #### L 500.4100, L500.4050, L100.0100 #### [facility] [address] [place], [address] GFR/1.73 sq M.predicted among non-blacks MDRD (S/P/Bld) [Vol rate/Area] 67 mL/min/{1.73_m2} Normal >60 [facility] Comment on above: Result Comment: mL/m in/1.73m2 CKD-EPI Creatinine Equation (2020) Performed By: #### L 500.4100, L500.4050, L100.0100 #### [facility] [address] [place], [address] Glucose [Mass/Vol] 85 mg/dL Normal 70-99 [facility] Comment on above: Performed By: #### L 500.4100, L500.4050, L100.0100 #### [facility] [address] [place], [address] Potassium [Moles/Vol] 4.7 mmol/L Normal 3.3-5.1 [facility] Comment on above: Performed By: #### L 500.4100, L500.4050, L100.0100 #### [facility] [address] [place], [address] Sodium [Moles/Vol] 141 mmol/L Normal 133-145 [facility] Comment on above: Performed By: #### L 500.4100, L500.4050, L100.0100 #### [facility] [address] [place], [address] Urea nitrogen [Mass/Vol] 25 mg/dL High 4-19 [facility] Comment on above: Performed By: #### L 500.4100, L500.4050, L100.0100 #### [facility] [address] [place], [address] Basophil percentageOrdered B y: Mai Rock on 02-06-2025 Basophils/100 WBC (Bld) 1.0 % 0-1 [facility] CBC W/Diff, Automatedon 01-13 Absolute Lymph 1.05 X10 3/uL Normal 0.83-4.51 [facility] Comment on above: Performed By: #### L 500.4100, L500.4050, L100.0100 #### [facility] [address] [place], [address] Absolute Neut 3.1 X10 3/uL Normal 2.0-7.7 [facility] Comment on above: Performed By: #### L 500.4100, L500.4050, L100.0100 #### [facility] [address] [place], [address] Basophils/100 WBC (Bld) 1.0 % Normal 0-1 [facility] Comment on above: Performed By: #### L 500.4100, L500.4050, L100.0100 #### [facility] [address] [place], [address] Eosinophils/100 WBC (Bld) 2.4 % Normal 0-5 [facility] Comment on above: Performed By: #### L 500.4100, L500.4050, L100.0100 #### [facility] [address] [place], [address] Erythrocyte distribution width (RBC) [Ratio] 13.9 % Normal 11.6-14.6 [facility] Comment on above: Performed By: #### L 500.4100, L500.4050, L100.0100 #### [facility] [address] [place], [address] Hematocrit (Bld) [Volume fraction] 41.4 % Normal 40-54 [facility] Comment on above: Performed By: #### L 500.4100, L500.4050, L100.0100 #### [facility] [address] [place], [address] Hemoglobin (Bld) [Mass/Vol] 13.7 g/dL Normal 13.0-16.5 [facility] Comment on above: Performed By: #### L 500.4100, L500.4050, L100.0100 #### [facility] [address] [place], [address] IG% 0.000 Normal 0.0-0.9 [facility] Comment on above: Result Comment: IG% - Immature Granulocytes (promyelocytes, myelocytes and metamyelocytes) > 1% indicates that a LEFT SHIFT is Present. Performed By: #### L 500.4100, L500.4050, L100.0100 #### [facility] [address] [place], [address] Lymphocytes/100 WBC (Bld) 21.4 % Normal 19-41 [facility] Comment on above: Performed By: #### L 500.4100, L500.4050, L100.0100 #### [facility] [address] [place], [address] MCH (RBC) [Entitic mass] 30.4 pg Normal 27.0-32.0 [facility] Comment on above: Performed By: #### L 500.4100, L500.4050, L100.0100 #### [facility] [address] [place], [address] MCHC (RBC) [Mass/Vol] 33.1 g/dL Normal 32-36 [facility] Comment on above: Performed By: #### L 500.4100, L500.4050, L100.0100 #### [facility] [address] [place], [address] MCV (RBC) [Entitic vol] 91.8 fL Normal 80-94 [facility] Comment on above: Performed By: #### L 500.4100, L500.4050, L100.0100 #### [facility] [address] [place], [address] Monocytes/100 WBC (Bld) 11.0 % High 0-10 [facility] Comment on above: Performed By: #### L 500.4100, L500.4050, L100.0100 #### [facility] [address] [place], [address] Neutrophils/100 WBC (Bld) 64.2 % Normal 47-70 [facility] Comment on above: Performed By: #### L 500.4100, L500.4050, L100.0100 #### [facility] [address] [place], [address] Nucleated RBC (Bld) [#/Vol] 0 10*3/uL Normal 0-5 [facility] Comment on above: Performed By: #### L 500.4100, L500.4050, L100.0100 #### [facility] [address] [place], [address] Platelet mean volume (Bld) [Entitic vol] 11.5 fL Normal 6.2-12.0 [facility] Comment on above: Performed By: #### L 500.4100, L500.4050, L100.0100 #### [facility] [address] [place], [address] Platelets (Bld) [#/Vol] 232 10*3/uL Normal 150-450 [facility] Comment on above: Performed By: #### L 500.4100, L500.4050, L100.0100 #### [facility] [address] [place], [address] RBC (Bld) [#/Vol] 4.51 10*6/uL Low 4.6-6.2 [facility] Comment on above: Performed By: #### L 500.4100, L500.4050, L100.0100 #### [facility] [address] [place], [address] RDW SD 46.9 fl High 35.1-43.9 [facility] Comment on above: Performed By: #### L 500.4100, L500.4050, L100.0100 #### [facility] [address] [place], [address] WBC (Bld) [#/Vol] 4.9 10*3/uL Normal 4.4-11.0 [facility] Comment on above: Performed By: #### L 500.4100, L500.4050, L100.0100 #### [facility] [address] [place], [address] Carbon dioxide, total [Moles /volume] in Central venous bloodOrdered By: Mai Rock on 02-06-2025 CO2 [Moles/Vol] 26.0 mmol/L 21.0-32.0 [facility] Chest PA and Lateralon 02-06 Chest PA and Lateral [facility] Imaging Services [address] [place] [address] Chest PA and Lateral MR#: [id number] Acct: [id number] Name: ABRAHAN CALVERT Rep #: [id number] : 1950 M 74 From: Tong Barclay MD PCP: Dr. Lawrence Wilson MD Status: REG CLI Study: Chest PA and Lateral Date of Exam: 02/06/25 Exam# [id number] Ordering Dr: Mai Rock PA EXAM: X-ray [...] No evidence of acute disease. Reading Location: [facility] CC: Dr. Lawrence Wilson MD; NGOC Li Adjutant General: Signed Normal [facility] Chloride assayOrdered By: Kriss Rock on 02-06-2025 Chloride [Moles/Vol] 103 mmol/L 98-108 [facility] Eosinophil percentageOrdered By: Mai Rock on 02-06-2025 Eosinophils/100 WBC (Bld) 2.4 % 0-5 [facility] Erythrocyte distribution wid th ratioOrdered By: Mai Rock on 02-06-2025 Erythrocyte distribution width (RBC) [Ratio] 13.9 % 11.6-14.6 [facility] Erythrocyte distribution wid th standard deviationOrdered By: Mai Rock on 02-06-2025 Erythrocyte distribution width (RBC) [Entitic vol] 46.9 fL High 35.1-43.9 [facility] Erythrocyte distribution width (RBC) [Ratio] 46.9 fl High 35.1-43.9 [facility] GFR/1.73 sq M.predicted jamie g non-blacks MDRD (S/P/Bld) [Vol rate/Area]Ordered By: Mai Rock on 02-06-2025 Estimated GFR (MDRD) Non-Af Amer 67 >60 [facility] Comment on above: mL/min/1.73m2 CKD-EP I Creatinine Equation (2020) Glomerular filtration rate ( GFR) estimation/1.73 sq m using serum, plasma, or whole bOrdered By: Mai Rock on 02-06-2025 GFR/1.73 sq M.predicted among non-blacks MDRD (S/P/Bld) [Vol rate/Area] 67 mL/min/{1.73_m2} >60 [facility] Comment on above: mL/min/1.73m2 CKD-EP I Creatinine Equation (2020) Hematocrit Auto (Bld) [Volum e fraction]Ordered By: Mai Rock on 02-06-2025 Hematocrit (Bld) [Volume fraction] 41.4 % 40-54 [facility] Hemoglobin measurementOrdere d By: Mai Rock on 02-06-2025 Hemoglobin (Bld) [Mass/Vol] 13.7 g/dL 13.0-16.5 [facility] Immature granulocytes/100 WB C Auto (Bld)Ordered By: Mai Rock on 02-06-2025 Immature granulocytes/100 WBC (Bld) 0.000 % 0.0-0.9 [facility] Comment on above: IG% - Immature Granu locytes (promyelocytes, myelocytes and metamyelocytes) > 1% indicates that a LEFT SHIFT is Present. International normalized rat io (INR) calculationOrdered By: Mai Rock on 02-06-2025 INR Coag (Bld) [Relative time] 1.1 {INR} [facility] Lymphocytes Auto (Unsp spec) [#/Vol]Ordered By: Mai Rock on 02-06-2025 Lymphocytes (Bld) [#/Vol] 1.05 10*3/uL 0.83-4.51 [facility] Lymphocytes/100 WBC Auto (Un sp spec)Ordered By: Mai Rock on 02-06-2025 Lymphocytes/100 WBC (Bld) 21.4 % 19-41 [facility] MCV (mean corpuscular volume ) determinationOrdered By: Mai Rock on 02-06-2025 MCV (RBC) [Entitic vol] 91.8 fL 80-94 [facility] Mean corpuscular hemoglobin (MCH) determinationOrdered By: Mai Rock on 02-06-2025 MCH (RBC) [Entitic mass] 30.4 pg 27.0-32.0 [facility] Mean corpuscular hemoglobin concentration (MCHC) determinationOrdered By: Mai Rock on 02-06-2025 MCHC (RBC) [Mass/Vol] 33.1 g/dL 32-36 [facility] Mean platelet volume determi nationOrdered By: Mai Rock on 02-06-2025 Platelet mean volume (Bld) [Entitic vol] 11.5 fL 6.2-12.0 [facility] Monocyte percentageOrdered B y: Mai Rock on 02-06-2025 Monocytes/100 WBC (Bld) 11.0 % High 0-10 [facility] Neutrophil percentageOrdered By: Mai Rock on 02-06-2025 Neutrophils/100 WBC (Bld) 64.2 % 47-70 [facility] Nucleated red blood cell per centageOrdered By: Mai Rock on 02-06-2025 Nucleated RBC/100 WBC (Bld) [Ratio] 0 % 0-5 [facility] Partial Thromboplast Timeon 02-06-2025 aPTT Coag (Bld) [Time] 26.7 s Normal 24.1-36.2 [facility] Comment on above: Performed By: #### L 500.4100, L500.4050, L100.0100 #### [facility] [address] [place], [place] [address], [address] Platelet countOrdered By: Kriss Rock on 02-06-2025 Platelets (Bld) [#/Vol] 232 10*3/uL 150-450 [facility] Potassium (Unsp spec) [Mass/ Vol]Ordered By: Mai Rock on 02-06-2025 Potassium [Moles/Vol] 4.7 mmol/L 3.3-5.1 [facility] Potassium measurement (mass/ volume)Ordered By: Mai Rock on 02-06-2025 Potassium (Unsp spec) [Mass/Vol] 4.7 mmol/L 3.3-5.1 [facility] Prothrombin Time w/INRon INR Coag (PPP) [Relative time] 1.1 {INR} Normal [facility] Comment on above: Performed By: #### L 500.4100, L500.4050, L100.0100 #### [facility] [address] [place], [address] PT Coag (PPP) [Time] 14.4 s Normal 11.7-14.9 [facility] Comment on above: Performed By: #### L 500.4100, L500.4050, L100.0100 #### [facility] [address] [place], [address] Prothrombin timeOrdered By: Mai Rock on 02-06-2025 PT Coag (PPP) [Time] 14.4 s 11.7-14.9 [facility] RBC Auto (Bld) [#/Vol]Ordere d By: Mai Rock on 02-06-2025 RBC (Bld) [#/Vol] 4.51 10*6/uL Low 4.6-6.2 [facility] Serum creatinine measurement (mass/volume)Ordered By: Mai Rock on 02-06-2025 Creatinine [Mass/Vol] 1.14 mg/dL 0.70-1.20 [facility] Serum glucose measurement (m ass/volume)Ordered By: Mai Rock on 02-06-2025 Glucose [Mass/Vol] 85 mg/dL 70-99 [facility] Serum or plasma calcium ash urement (mass/volume)Ordered By: Mai Rock on 02-06-2025 Calcium [Mass/Vol] 9.5 mg/dL 7.6-11.0 [facility] Serum or plasma urea nitroge n measurement (mass/volume)Ordered By: Mai Rock on 02-06-2025 Urea nitrogen [Mass/Vol] 25 mg/dL High 4-19 [facility] Sodium levelOrdered By: [place] on 02-06-2025 Sodium [Moles/Vol] 141 mmol/L 133-145 [facility] White blood cell (WBC) count Ordered By: Mai Rock on 02-06-2025 WBC (Bld) [#/Vol] 4.9 10*3/uL 4.4-11.0 [facility] aPTT Coag (PPP) [Time]Ordere d By: Mai Rock on 02-06-2025 aPTT Coag (Bld) [Time] 26.7 s 24.1-36.2 [facility] Cardiology Visit Reporton Cardiology Visit Report [facility] [address] [facility] 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 Normal [facility] Duplex ultrasound of carotid artery reportOrdered By: Tremayne Loyola on 02-02-2025 Study report [facility] Cardiovascular Services [address] [place] [address] Carotid Duplex Ultrasound 02/01/25 0917 MR#: [id number] Acct: [id number] Name: ABRAHAN CALVERT Rep #:[id number] : 1950 74 From: Tremayne Loyola [...] the left vertebral artery. Procedure Carotid Duplex 95916. This is a Carotid Duplex examination using [...] ~ Date Dictated: 02/01/25916 Date Transcribed: 02/02/251112 Adjutant General: Signed [facility] Other Cardiovascular stress test r eportOrdered By: Michael Freeman on 02-01-2025 Study report [facility] Cardiovascular Services [address] [place] [address] MR#: [id number] Acct: [id number] Name: ABRAHAN CALVERT Rep #: [id number] : 1950 74 From: Michael Freeman [...] ~ Date Dictated: 02/01/25902 Date Transcribed: 02/01/25902 Adjutant General: [place] Signed [facility] Work Phone: Carotid Duplex Ultrasoundon 02-01-2025 Carotid Duplex Ultrasound [facility] Services [address] [place] [address]. [place] [address] Carotid Duplex Ultrasound 02/01/25916 MR#: [id number] Acct: [id number] Name: ABRAHAN CALVERT Rep #: [id number] : 1950 74 From: Tremayne Loyola MD Attending Dr: Dr. Lawrence Wilson MD Status: R EG CLI Ordering Dr: Lawrence Wilson MD Date: [...] the left vertebral artery. Procedure Carotid Duplex 70291. This is a Carotid Duplex examination using B-mode, color flow and specral Doppler. Exam performed in department. VL/Carotid Duplex Ultrasound Interpretation Summary Mild (<50%) stenosis right extracranial internal carotid. Mild (<50%) stenosis left extracranial internal carotid. Flow within the vertebral arteries is antegrade bilaterally. Ordering Physician: Lawrence Wilson Referring Physician: Lawrence Wilson Performed By: Mary Stallings 02/02/25 1113 Date Tremayne Loyola MD CC: Dr. Lawrence Wilson MD Date Dictated: 02/01/25916 Date Transcribed: 02/02/25 1113 Adjutant General: Signed Normal [facility] Echo Completeon 02-01-2025 Echo Complete [facility] [place] [address] Echo Complete 02/01/25828 MR#: [id number] Acct: [id number] Name: ABRAHAN CALVERT Rep #: [id number] : 1950 74 From: Michael Freeman MD Attending Dr: Dr. Lawrence Wilson MD Status: R EG CLI Ordering Dr: Lawrence Wilson MD Date: 02/01/25 Location: [facility] Sex: M C Admitted: Reason For Study [...] MD Date Dictated: 02/01/25828 Date Transcribed: 02/01/251124 Adjutant General: Signed Normal [facility] Echocardiogram study reportO rdered By: Michael Freeman on 02-01-2025 Study report [facility] Cardi[facility] Services [address] [place] [address] Echo Complete 02/01/25828 MR#: [id number] Acct: [id number] Name: ABRAHAN ACLVERT Rep #:[id number] : 1950 74 From: Michael Doshi Attending Dr: Dr. Lawrence Wilson MD Status: REG I Ordering Dr: Lawrence Wilson MD Date: 02/01/25 Location: [facility] Sex: M C Admitted: Reason For Study [...] Dr. Lawrence Wilson MD ~ Date Dictated: 02/01/25 0829 Date Transcribed: 02/01/251124 Adjutant General: Signed [facility] Work Phone: Stress Reporton 02-01-2025 Stress Report [facility] Cardi[facility] Services [address] [place] [address] MR#: [id number] Acct: [id number] Name: ABRAHAN CALVERT Rep #: [id number] : 1950 74 From: Michael Freeman MD [...] fraction. Moderate mid anterior ischemia 02/01/25903 Date Michael Freeman MD CC: Dr. Lawrence Wilson MD Date Dictated: 02/01/25902 Date Transcribed: 02/01/25902 Adjutant General: [place] Signed Normal [facility] Ferritinon 01-03-2025 Ferritin [Mass/Vol] 55 ng/mL Normal 26-388 [facility] Comment on above: Order Comment: Order Date: 03/28/24 Order Info: [id number] - CMP Order Info: [id number] - LIPID Performed By: #### L 500.4100, L500.4050, L100.0100 #### [facility] [address] [place], [address] Iron+Iron Binding Capacityon 01-03-2025 Iron [Mass/Vol] 70 ug/dL Normal 65-175 [facility] Comment on above: Order Comment: Order Date: 03/28/24 Order Info: [id number] - CMP Order Info: [id number] - LIPID Performed By: #### L 500.4100, L500.4050, L100.0100 #### [facility] [address] [place], [address] IRON SATURATION 22.2 Normal 15.0-55.0 [facility] Comment on above: Order Comment: Order Date: 03/28/24 Order Info: [id number] - CMP Order Info: [id number] - LIPID Performed By: #### L 500.4100, L500.4050, L100.0100 #### [facility] [address] [place], [address] TIBC 315 ug/dL Normal 250-450 [facility] Comment on above: Order Comment: Order Date: 03/28/24 Order Info: [id number] - CMP Order Info: [id number] - LIPID Performed By: #### L 500.4100, L500.4050, L100.0100 #### [facility] [address] [place], [place], [address] Vitamin B12on 01-03-2025 Cobalamin (Vitamin B12) [Mass/Vol] 495 pg/mL Normal 211-911 [facility] Comment on above: Order Comment: Order Date: 03/28/24 Order Info: 0786-1 - CMP Order Info: [id number] - LIPID Performed By: #### L 500.4100, L500.4050, L100.0100 #### [facility] [address] [place], [place], [address] Absolute lymphocyte countOrd ered By: Lawrence Wilson on 01-02-2025 Lymphocytes Auto (Unsp spec) [#/Vol] 1.04 10*3/uL 0.83-4.51 [facility] Absolute neutrophil countOrd ered By: Lawrence Wilson on 01-02-2025 Neutrophils (Bld) [#/Vol] 2.8 10*3/uL 2.0-7.7 [facility] Albumin to globulin ratioOrd ered By: Lawrence Wilson on 01-02-2025 Albumin/Globulin [Mass ratio] 0.9 {ratio} 0.9-2.4 [facility] Automated lymphocyte count a s percentage of total leukocytesOrdered By: Lawrence Wilson on 01-02-2025 Lymphocytes/100 WBC Auto (Unsp spec) 22.4 % 19-41 [facility] Basophil percentageOrdered B y: Lawrence Wilson on 01-02-2025 Basophils/100 WBC (Bld) 0.9 % 0-1 [facility] Bilirubin Test strip Ql (U)O rdered By: Lawrence Wilson on 01-02-2025 Bilirubin Ql (U) Negative Negative [facility] Bilirubin, totalOrdered By: Lawrence Wilson on 01-02-2025 Bilirubin [Mass/Vol] 0.60 mg/dL 0.20-1.00 [facility] Comment on above: For patients on eltr ombopag therapy, use of Dimension [place] TBIL is not recommended. Blood urea nitrogen (BUN)/cr eatinine ratioOrdered By: Lawrence Wilson on 01-02-2025 Urea nitrogen/Creatinine [Mass ratio] 24.0 mg/mg High 10-20 [facility] CBC W/Diff, Automatedon 12-15 Absolute Lymph 1.04 X10 3/uL Normal 0.83-4.51 [facility] Comment on above: Order Comment: DANIEL Camarillo ADD IBC [place] B12 TO BLOOD DRAWN 07/08/25 PER Order Date: 03/07/25 Order Info: 0786- - CMP Order Info: [id number] - LIPID Performed By: #### L 503.6550, L503.6030, L503.0106, L501.9940 #### [facility] [address] [place], [address] Absolute Neut 2.8 X10 3/uL Normal 2.0-7.7 [facility] Comment on above: Order Comment: DANIEL Camarillo ADD IBC [place] B12 TO BLOOD DRAWN 07/08/25 PER Order Date: 03/07/25 Order Info: 0786 - CMP Order Info: [id number] - LIPID Performed By: #### L 503.6550, L503.6030, L503.0106, L501.9940 #### [facility] [address] [place], [address] Basophils/100 WBC (Bld) 0.9 % Normal 0-1 [facility] Comment on above: Order Comment: DANIEL Camarillo ADD IBC [place] B12 TO BLOOD DRAWN 07/08/25 PER Order Date: 03/07/25 Order Info: 0786 - CMP Order Info: [id number] - LIPID Performed By: #### L 503.6550, L503.6030, L503.0106, L501.9940 #### [facility] [address] [place], [address] Eosinophils/100 WBC (Bld) 3.7 % Normal 0-5 [facility] Comment on above: Order Comment: DANIEL Camarillo ADD IBC [place] B12 TO BLOOD DRAWN 07/08/25 PER Order Date: 03/07/25 Order Info: 785-11 - [facility] Order Info: [id number] - LIPID Performed By: #### L 503.6550, L503.6030, L503.0106, L501.9940 #### [facility] [address] [place], [place], [address] Erythrocyte distribution width (RBC) [Ratio] 13.6 % Normal 11.6-14.6 [facility] Comment on above: Order Comment: DANIEL Camarillo ADD IBC [place] B12 TO BLOOD DRAWN 07/08/25 PER Order Date: 03/07/25 Order Info: 785-11 - [facility] Order Info: [id number] - LIPID Performed By: #### L 503.6550, L503.6030, L503.0106, L501.9940 #### [facility] [address] [place], [place], [address] Hematocrit (Bld) [Volume fraction] 39.0 % Low 40-54 [facility] Comment on above: Order Comment: DANIEL Camarillo ADD IBC [place] B12 TO BLOOD DRAWN 07/08/25 PER Order Date: 03/07/25 Order Info: 785-11 - [facility] Order Info: [id number] - LIPID Performed By: #### L 503.6550, L503.6030, L503.0106, L501.9940 #### [facility] [address] [place], [address] Hemoglobin (Bld) [Mass/Vol] 12.5 g/dL Low 13.0-16.5 [facility] Comment on above: Order Comment: DANIEL Camarillo ADD IBC [place] B12 TO BLOOD DRAWN 07/08/25 PER Order Date: 03/07/25 Order Info: 07 - CMP Order Info: [id number] - LIPID Performed By: #### L 503.6550, L503.6030, L503.0106, L501.9940 #### [facility] [address] [place], [place], [address] IG% 0.200 Normal 0.0-0.9 [facility] Comment on above: Order Comment: DANIEL Camarillo ADD IBC [place] B12 TO BLOOD DRAWN 07/08/25 PER Order Date: 03/07/25 Order Info: 0786-1 - CMP Order Info: [id number] - LIPID Result Comment: IG% - Immature Granulocytes (promyelocytes, myelocytes and metamyelocytes) > 1% indicates that a LEFT SHIFT is Present. Performed By: #### L 503.6550, L503.6030, L503.0106, L501.9940 #### [facility] [address] [facility] [place], [place], [id number] (530) Lymphocytes/100 WBC (Bld) 22.4 % Normal 19-41 [facility] Comment on above: Order Comment: DANIEL Camarillo ADD IBC [place] B12 TO BLOOD DRAWN 07/08/25 PER Order Date: 03/07/25 Order Info: 0786-1 - CMP Order Info: [id number] - LIPID Performed By: #### L 503.6550, L503.6030, L503.0106, L501.9940 #### [facility] [address] [place], [address] MCH (RBC) [Entitic mass] 29.3 pg Normal 27.0-32.0 [facility] Comment on above: Order Comment: DANIEL Camarillo ADD IBC [place] B12 TO BLOOD DRAWN 07/08/25 PER Order Date: 03/07/25 Order Info: 0786-1 - CMP Order Info: [id number] - LIPID Performed By: #### L 503.6550, L503.6030, L503.0106, L501.9940 #### [facility] [address] [place], [address] MCHC (RBC) [Mass/Vol] 32.1 g/dL Normal 32-36 [facility] Comment on above: Order Comment: DANIEL Camarillo ADD IBC [place] B12 TO BLOOD DRAWN 07/08/25 PER Order Date: 03/07/25 Order Info: 785-11 - [facility] Order Info: [id number] - LIPID Performed By: #### L 503.6550, L503.6030, L503.0106, L501.9940 #### [facility] [address] [place], [address] MCV (RBC) [Entitic vol] 91.5 fL Normal 80-94 [facility] Comment on above: Order Comment: DANIEL Camarillo ADD IBC [place] B12 TO BLOOD DRAWN 07/08/25 PER Order Date: 03/07/25 Order Info: 785-11 - [facility] Order Info: - LIPID Performed By: #### L 503.6550, L503.6030, L503.0106, L501.9940 #### [facility] [address] [place], [address] Monocytes/100 WBC (Bld) 12.1 % High 0-10 [facility] Comment on above: Order Comment: DANIEL Camarillo ADD IBC [place] B12 TO BLOOD DRAWN 07/08/25 PER Order Date: 03/07/25 Order Info: 785-11 - [facility] Order Info: [id number] - LIPID Performed By: #### L 503.6550, L503.6030, L503.0106, L501.9940 #### [facility] [address] [place], [address] Neutrophils/100 WBC (Bld) 60.7 % Normal 47-70 [facility] Comment on above: Order Comment: DANIEL Camarillo ADD IBC [place] B12 TO BLOOD DRAWN 07/08/25 PER Order Date: 03/07/25 Order Info: 785-11 - [facility] Order Info: [id number] - LIPID Performed By: #### L 503.6550, L503.6030, L503.0106, L501.9940 #### [facility] [address] [place], [address] Nucleated RBC (Bld) [#/Vol] 0 10*3/uL Normal 0-5 [facility] Comment on above: Order Comment: DANEIL Camarillo ADD IBC [place] B12 TO BLOOD DRAWN 07/08/25 PER Order Date: 03/07/25 Order Info: 0786-1 - [facility] Order Info: [id number] - LIPID Performed By: #### L 503.6550, L503.6030, L503.0106, L501.9940 #### [facility] [address] [place], [address] Platelet mean volume (Bld) [Entitic vol] 11.2 fL Normal 6.2-12.0 [facility] Comment on above: Order Comment: DANIEL Camarillo ADD IBC [place] B12 TO BLOOD DRAWN 07/08/25 PER Order Date: 03/07/25 Order Info: 0786-1 - [facility] Order Info: [id number] - LIPID Performed By: #### L 503.6550, L503.6030, L503.0106, L501.9940 #### [facility] [address] [place], [address] Platelets (Bld) [#/Vol] 202 10*3/uL Normal 150-450 [facility] Comment on above: Order Comment: DANIEL Camarillo ADD IBC [place] B12 TO BLOOD DRAWN 07/08/25 PER Order Date: 03/07/25 Order Info: 0786-1 - [facility] Order Info: [id number] - LIPID Performed By: #### L 503.6550, L503.6030, L503.0106, L501.9940 #### [facility] [address] [place], [address] RBC (Bld) [#/Vol] 4.26 10*6/uL Low 4.6-6.2 [facility] Comment on above: Order Comment: DANIEL Camarillo ADD IBC [place] B12 TO BLOOD DRAWN 07/08/25 PER Order Date: 03/07/25 Order Info: 0786 - [facility] Order Info: [id number] - LIPID Performed By: #### L 503.6550, L503.6030, L503.0106, L501.9940 #### [facility] [address] [place], [address] RDW SD 45.7 fl High 35.1-43.9 [facility] Comment on above: Order Comment: DANIEL Camarillo ADD IBC [place] B12 TO BLOOD DRAWN 07/08/25 PER Order Date: 03/07/25 Order Info: 0786 - CMP Order Info: [id number] - LIPID Performed By: #### L 503.6550, L503.6030, L503.0106, L501.9940 #### [facility] [address] [place], [address] WBC (Bld) [#/Vol] 4.6 10*3/uL Normal 4.4-11.0 [facility] Comment on above: Order Comment: DANIEL Camarillo ADD IBC [place] B12 TO BLOOD DRAWN 07/08/25 PER Order Date: 03/07/25 Order Info: 0786 - [facility] Order Info: [id number] - LIPID Performed By: #### L 503.6550, L503.6030, L503.0106, L501.9940 #### [facility] [address] [place], [place], [address] Carbon dioxide measurementOr dered By: Lawrence Wilson on 01-02-2025 CO2 [Moles/Vol] 26.0 mmol/L 21.0-32.0 [facility] Chloride measurementOrdered By: Lawrence Wilson on 01-02-2025 Chloride [Moles/Vol] 109 mmol/L High 98-107 [facility] Comprehensive Metabolic Prof ilon 01-02-2025 Albumin [Mass/Vol] 3.5 g/dL Normal 3.2-5.0 [facility] Comment on above: Order Comment: DANIEL Camarillo ADD IBC [place] B12 TO BLOOD DRAWN 07/08/25 PER Order Date: 03/07/25 Order Info: 0786 - CMP Order Info: [id number] - LIPID Performed By: #### L 503.6550, L503.6030, L503.0106, L501.9940 #### [facility] [address] [place], [address] Albumin/Globulin [Mass ratio] 0.9 {ratio} Normal 0.9-2.4 [facility] Comment on above: Order Comment: DANIEL Camarillo ADD IBC [place] B12 TO BLOOD DRAWN 07/08/25 PER Order Date: 03/07/25 Order Info: 785-11 - CMP Order Info: [id number] - LIPID Performed By: #### L 503.6550, L503.6030, L503.0106, L501.9940 #### [facility] [address] [place], [address] ALK P 70 U/L Normal 45-117 [facility] Comment on above: Order Comment: DANIEL Camarillo ADD IBC [place] B12 TO BLOOD DRAWN 07/08/25 PER Order Date: 03/07/25 Order Info: 785-11 - CMP Order Info: [id number] - LIPID Performed By: #### L 503.6550, L503.6030, L503.0106, L501.9940 #### [facility] [address] [place], [address] ALT [Catalytic activity/Vol] 26 U/L Normal 16-61 [facility] Comment on above: Order Comment: DANIEL Camarillo ADD IBC [place] B12 TO BLOOD DRAWN 07/08/25 PER Order Date: 03/07/25 Order Info: 07 - CMP Order Info: [id number] - LIPID Performed By: #### L 503.6550, L503.6030, L503.0106, L501.9940 #### [facility] [address] [place], [address] AST [Catalytic activity/Vol] 17 U/L Normal 15-37 [facility] Comment on above: Order Comment: DANIEL Camarillo ADD IBC [place] B12 TO BLOOD DRAWN 07/08/25 PER Order Date: 03/07/25 Order Info: 0786-1 - CMP Order Info: [id number] - LIPID Performed By: #### L 503.6550, L503.6030, L503.0106, L501.9940 #### [facility] [address] [place], [address] Bilirubin [Mass/Vol] 0.60 mg/dL Normal 0.20-1.00 [facility] Comment on above: Order Comment: DANEIL Camarillo ADD IBC [place] B12 TO BLOOD DRAWN 07/08/25 PER Order Date: 03/07/25 Order Info: [id number] - CMP Order Info: [id number] - LIPID Result Comment: For patients on eltrombopag therapy, use of Dimension [place] TBIL is not recommended. Performed By: #### L 503.6550, L503.6030, L503.0106, L501.9940 #### [facility] [address] [place], [address] BUN/CRE 24.0 RATIO High 10-20 [facility] Comment on above: Order Comment: DANIEL Camarillo ADD IBC [place] B12 TO BLOOD DRAWN 07/08/25 PER Order Date: 03/07/25 Order Info: 0786-1 - CMP Order Info: [id number] - LIPID Performed By: #### L 503.6550, L503.6030, L503.0106, L501.9940 #### [facility] [address] [place], [place], [address] CA,Total 9.1 mg/dL Normal 8.5-10.1 [facility] Comment on above: Order Comment: DANIEL Camarillo ADD IBC [place] B12 TO BLOOD DRAWN 07/08/25 PER Order Date: 03/07/25 Order Info: 785-11 - [facility] Order Info: [id number] - LIPID Performed By: #### L 503.6550, L503.6030, L503.0106, L501.9940 #### [facility] [address] [place], [address] Chloride [Moles/Vol] 109 mmol/L High 98-107 [facility] Comment on above: Order Comment: DANIEL Camarillo ADD IBC [place] B12 TO BLOOD DRAWN 07/08/25 PER Order Date: 03/07/25 Order Info: 785-11 - [facility] Order Info: - LIPID Performed By: #### L 503.6550, L503.6030, L503.0106, L501.9940 #### [facility] [address] [place], [address] CO2 [Moles/Vol] 26.0 mmol/L Normal 21.0-32.0 [facility] Comment on above: Order Comment: DANIEL Camarillo ADD IBC [place] B12 TO BLOOD DRAWN 07/08/25 PER Order Date: 03/07/25 Order Info: 785-11 - [facility] Order Info: [id number] - LIPID Performed By: #### L 503.6550, L503.6030, L503.0106, L501.9940 #### [facility] [address] [place], [address] Creatinine [Mass/Vol] 1.04 mg/dL Normal 0.70-1.30 [facility] Comment on above: Order Comment: DANIEL Camarillo ADD IBC [place] B12 TO BLOOD DRAWN 07/08/25 PER Order Date: 03/07/25 Order Info: 785-11 - [facility] Order Info: [id number] - LIPID Result Comment: The validity of the calculated GFR GFRAA in patients over 70 years has not been determined. Clinical correlation is essential. Performed By: #### L 503.6550, L503.6030, L503.0106, L501.9940 #### [facility] [address] [place], [place], [address] EST GFR - AA 90 mL/min Normal >60 [facility] Comment on above: Order Comment: DANIEL Camarillo ADD IBC [place] B12 TO BLOOD DRAWN 07/08/25 PER Order Date: 03/07/25 Order Info: 0786-1 - CMP Order Info: [id number] - LIPID Result Comment: Afri can [place] GFR Calc Performed By: #### L 503.6550, L503.6030, L503.0106, L501.9940 #### [facility] [address] [place], [address] GAP 5 Normal 5-15 [facility] Comment on above: Order Comment: DANIEL Camarillo ADD IBC [place] B12 TO BLOOD DRAWN 07/08/25 PER Order Date: 03/07/25 Order Info: 0786 - CMP Order Info: [id number] - LIPID Performed By: #### L 503.6550, L503.6030, L503.0106, L501.9940 #### [facility] [address] [place], [address] GFR/1.73 sq M.predicted among non-blacks MDRD (S/P/Bld) [Vol rate/Area] 74 mL/min/{1.73_m2} Normal >60 [facility] Comment on above: Order Comment: DANIEL Camarillo ADD IBC [place] B12 TO BLOOD DRAWN 07/08/25 PER Order Date: 03/07/25 Order Info: 0786-1 - CMP Order Info: [id number] - LIPID Result Comment: Non- GFR Calc Performed By: #### L 503.6550, L503.6030, L503.0106, L501.9940 #### [facility] [address] [place], [address] Globulin (S) [Mass/Vol] 3.7 g/dL Normal 2.2-4.2 [facility] Comment on above: Order Comment: DANIEL Camarillo ADD IBC [place] B12 TO BLOOD DRAWN 07/08/25 PER Order Date: 03/07/25 Order Info: 785-11 - [facility] Order Info: [id number] - LIPID Performed By: #### L 503.6550, L503.6030, L503.0106, L501.9940 #### [facility] [address] [place], [address] Glucose [Mass/Vol] 90 mg/dL Normal 74-106 [facility] Comment on above: Order Comment: DANIEL Camarillo ADD IBC [place] B12 TO BLOOD DRAWN 07/08/25 PER Order Date: 03/07/25 Order Info: 785-11 - [facility] Order Info: [id number] - LIPID Performed By: #### L 503.6550, L503.6030, L503.0106, L501.9940 #### [facility] [address] [place], [address] Potassium [Moles/Vol] 4.1 mmol/L Normal 3.5-5.1 [facility] Comment on above: Order Comment: DANIEL Camarillo ADD IBC [place] B12 TO BLOOD DRAWN 07/08/25 PER Order Date: 03/07/25 Order Info: 785-11 - [facility] Order Info: [id number] - LIPID Performed By: #### L 503.6550, L503.6030, L503.0106, L501.9940 #### [facility] [address] [place], [address] Sodium [Moles/Vol] 140 mmol/L Normal 136-145 [facility] Comment on above: Order Comment: DANIEL Camarillo ADD IBC [place] B12 TO BLOOD DRAWN 07/08/25 PER Order Date: 03/07/25 Order Info: 785-11 - [facility] Order Info: [id number] - LIPID Performed By: #### L 503.6550, L503.6030, L503.0106, L501.9940 #### [facility] [address] [place], [place], [address] T PROT 7.2 g/dL Normal 6.4-8.2 [facility] Comment on above: Order Comment: DANIEL Camarillo ADD IBC [place] B12 TO BLOOD DRAWN 07/08/25 PER Order Date: 03/07/25 Order Info: 0786-1 - [facility] Order Info: [id number] - LIPID Performed By: #### L 503.6550, L503.6030, L503.0106, L501.9940 #### [facility] [address] [place], [address] Urea nitrogen [Mass/Vol] 25 mg/dL High 7-18 [facility] Comment on above: Order Comment: DANIEL Camarillo ADD IBC [place] B12 TO BLOOD DRAWN 07/08/25 PER Order Date: 03/07/25 Order Info: 0786-1 - [facility] Order Info: [id number] - LIPID Performed By: #### L 503.6550, L503.6030, L503.0106, L501.9940 #### [facility] [address] [place], [place], [address] Eosinophil percentageOrdered By: Lawrence Wilson on 01-02-2025 Eosinophils/100 WBC (Bld) 3.7 % 0-5 [facility] Epithelial cells.squamous LM Ql (Urine sed)Ordered By: Lawrence Wilson on 01-02-2025 Epithelial cells.squamous LM.HPF (Urine sed) [#/Area] 0 /[HPF] 0-5 [facility] Erythrocyte distribution wid th ratioOrdered By: Lawrence Wilson on 01-02-2025 Erythrocyte distribution width (RBC) [Ratio] 13.6 % 11.6-14.6 [facility] Erythrocyte distribution wid th standard deviationOrdered By: Lawrence Wilson on 01-02-2025 Erythrocyte distribution width (RBC) [Entitic vol] 45.7 fL High 35.1-43.9 [facility] Erythrocyte distribution width (RBC) [Ratio] 45.7 fl High 35.1-43.9 [facility] Estimated glomerular filtrat ion rate (GFR) AmericanOrdered By: Lawrence Wilson on 01-02-2025 Estimated GFR (MDRD) Amer 90 mL/min >60 [facility] Comment on above: GFR Calc Ferritin measurementOrdered By: Lawrence Wilson on 01-02-2025 Ferritin [Mass/Vol] 55 ng/mL 26-388 [facility] Glomerular filtration rate ( GFR) estimationOrdered By: Lawrence Wilson on 01-02-2025 Estimated GFR (MDRD) Non-Af Amer 74 mL/min >60 [facility] Comment on above: Non- GFR Calc GFR/1.73 sq M.predicted among non-blacks MDRD (S/P/Bld) [Vol rate/Area] 74 mL/min/{1.73_m2} >60 [facility] Comment on above: Non- GFR Calc Glucose Ql (U)Ordered By: Leah Wilson on 01-02-2025 Urine Glucose (UA) Normal mg/dl Normal [facility] Glucose measurementOrdered B y: Lawrence Wilson on 01-02-2025 Glucose [Mass/Vol] 90 mg/dL 74-106 [facility] Hematocrit Auto (Bld) [Volum e fraction]Ordered By: Lawrence Wilson on 01-02-2025 Hematocrit (Bld) [Volume fraction] 39.0 % Low 40-54 [facility] Hemoglobin measurementOrdere d By: Lawrence Wilson on 01-02-2025 Hemoglobin (Bld) [Mass/Vol] 12.5 g/dL Low 13.0-16.5 [facility] High density lipoprotein (HD L) measurementOrdered By: Lawrence Wilson on 01-02-2025 Cholesterol in HDL [Mass/Vol] 53 mg/dL >40 [facility] Comment on above: The drugs N-Acetylcy steine and Metamizole may falsely depress this assay. Reference Range HDL <40 mg/dL Low HDL Cholesterol HDL >or= 60 mg/dL High HDL Cholesterol Immature granulocytes/100 WB C Auto (Bld)Ordered By: Lawrence Wilson on 01-02-2025 Immature granulocytes/100 WBC (Bld) 0.200 % 0.0-0.9 [facility] Comment on above: IG% - Immature Granu locytes (promyelocytes, myelocytes and metamyelocytes) > 1% indicates that a LEFT SHIFT is Present. Iron (Unsp spec) [Mass/Mass] Ordered By: Lawrence Wilson on 01-02-2025 Iron [Mass/Vol] 70 ug/dL 65-175 [facility] Iron measurement (mass/mass) Ordered By: Lawrence Wilson on 01-02-2025 Iron (Unsp spec) [Mass/Mass] 70 ug/dL 65-175 [facility] Iron saturation [Mass fracti on]Ordered By: Lawrence Wilson on 01-02-2025 Iron Saturation 22.2 % 15.0-55.0 [facility] Ketones Test strip Ql (U)Ord ered By: Lawrence Wilson on 01-02-2025 Ketones Ql (U) Negative Negative [facility] Laboratory - Chemistry and C hemistry - challengeOrdered By: Lawrence Wilson on 01-02-2025 AST [Catalytic activity/Vol] 17 U/L 15-37 [facility] Lipid Profileon 01-02-2025 Cholesterol [Mass/Vol] 150 mg/dL Normal 200 [facility] Comment on above: Order Comment: DANIEL Camarillo ADD IBC [place] B12 TO BLOOD DRAWN 07/08/25 PER Order Date: 03/07/25 Order Info: [id number] - CMP Order Info: [id number] - LIPID Result Comment: <200 mg/dL Desirable 200-240 mg/dL Borderline >240 mg/dL High Risk Performed By: #### L 503.6550, L503.6030, L503.0106, L501.9940 #### [facility] [address] [facility]. [place], [place], [id number] Cholesterol in HDL [Mass/Vol] 53 mg/dL Normal [facility] Comment on above: Order Comment: DANIEL Camarillo ADD IBC [place] B12 TO BLOOD DRAWN 07/08/25 PER Order Date: 03/07/25 Order Info: [id number] - CMP Order Info: [id number] - LIPID Result Comment: The drugs N-Acetylcysteine and Metamizole may falsely depress this assay. Reference Range HDL <40 mg/dL Low HDL Cholesterol HDL >or= 60 mg/dL High HDL Cholesterol Performed By: #### L 503.6550, L503.6030, L503.0106, L501.9940 #### [facility] [address] [place], [address] Cholesterol in LDL [Mass/Vol] 74 mg/dL Normal 0-130 [facility] Comment on above: Order Comment: DANIEL Camarillo ADD IBC [place] B12 TO BLOOD DRAWN 07/08/25 PER Order Date: 03/07/25 Order Info: [id number] - CMP Order Info: [id number] - LIPID Performed By: #### L 503.6550, L503.6030, L503.0106, L501.9940 #### [facility] [address] [facility] [place], [address] Cholesterol in VLDL [Mass/Vol] 23 mg/dL Normal 5-40 [facility] Comment on above: Order Comment: DANIEL Camarillo ADD IBC [place] B12 TO BLOOD DRAWN 07/08/25 PER Order Date: 03/07/25 Order Info: [id number] - CMP Order Info: [id number] - LIPID Performed By: #### L 503.6550, L503.6030, L503.0106, L501.9940 #### [facility] [address] [facility] [place], [address] Triglyceride [Mass/Vol] 114 mg/dL Normal [facility] Comment on above: Order Comment: DANIEL Camarillo ADD IBC [place] B12 TO BLOOD DRAWN 07/08/25 PER Order Date: 03/07/25 Order Info: [id number] - CMP Order Info: [id number] - LIPID Result Comment: The drugs N-Acetylcysteine and Metamizole may falsely depress this assay. Serum Triglycerides Reference Interval Normal <150 mg/dL Borderline high 150 - 199 mg/dL High 200 - 499 mg/dL Very High > or = 500 mg/dL Performed By: #### L 503.6550, L503.6030, L503.0106, L501.9940 #### [facility] [address] [place], [address] Low density lipoprotein (LDL ) cholesterol measurementOrdered By: Lawrence Wilson on 01-02-2025 Cholesterol in LDL [Mass/Vol] 74 mg/dL 0-130 [facility] Lymphocytes Auto (Unsp spec) [#/Vol]Ordered By: Lawrence Wilson on 01-02-2025 Lymphocytes (Bld) [#/Vol] 1.04 10*3/uL 0.83-4.51 [facility] Lymphocytes/100 WBC Auto (Un sp spec)Ordered By: Lawrence Wilson on 01-02-2025 Lymphocytes/100 WBC (Bld) 22.4 % 19-41 [facility] MCV (mean corpuscular volume ) determinationOrdered By: Lawrence Wilson on 01-02-2025 MCV (RBC) [Entitic vol] 91.5 fL 80-94 [facility] Magnesiumon 01-02-2025 Magnesium [Mass/Vol] 2.2 mg/dL Normal 1.6-2.6 [facility] Comment on above: Order Comment: DANIEL Camarillo ADD IBC [place] B12 TO BLOOD DRAWN 07/08/25 PER Order Date: 03/07/25 Order Info: [id number] - CMP Order Info: [id number] - LIPID Performed By: #### L 503.6550, L503.6030, L503.0106, L501.9940 #### [facility] [address] [place], [address] Magnesium measurementOrdered By: Lawrence Wilson on 01-02-2025 Magnesium [Mass/Vol] 2.2 mg/dL 1.6-2.6 [facility] Mean corpuscular hemoglobin (MCH) determinationOrdered By: Lawrence Wilson on 01-02-2025 MCH (RBC) [Entitic mass] 29.3 pg 27.0-32.0 [facility] Mean corpuscular hemoglobin concentration (MCHC) determinationOrdered By: Lawrence Wilson on 01-02-2025 MCHC (RBC) [Mass/Vol] 32.1 g/dL 32-36 [facility] Mean platelet volume determi nationOrdered By: Lawrence Wilson on 01-02-2025 Platelet mean volume (Bld) [Entitic vol] 11.2 fL 6.2-12.0 [facility] Microscopic analysis of urin e for red blood cells (RBC)Ordered By: Lawrence Wilson on 01-02-2025 Microscopic analysis of urine for red blood cells (RBC) 0 SEEN /hpf 0-5 [facility] Urine RBC 0 SEEN /hpf 0-5 [facility] Monocyte percentageOrdered B y: Lawrence Wilson on 01-02-2025 Monocytes/100 WBC (Bld) 12.1 % High 0-10 [facility] Mucus LM Ql (Urine sed)Order ed By: Lawrence Wilson on 01-02-2025 Mucus Ql (Urine sed) 1+ /hpf [facility] Neutrophil percentageOrdered By: Lawrence Wilson on 01-02-2025 Neutrophils/100 WBC (Bld) 60.7 % 47-70 [facility] Nitrite Test strip Ql (U)Ord ered By: Lawrence Wilson on 01-02-2025 Nitrite Ql (U) Negative Negative [facility] Nucleated red blood cell per centageOrdered By: Lawrence Wilson on 01-02-2025 Nucleated RBC/100 WBC (Bld) [Ratio] 0 % 0-5 [facility] Platelet countOrdered By: Leah Wilson on 01-02-2025 Platelets (Bld) [#/Vol] 202 10*3/uL 150-450 [facility] Potassium measurementOrdered By: Lawrence Wilson on 01-02-2025 Potassium [Moles/Vol] 4.1 mmol/L 3.5-5.1 [facility] Protein Test strip Ql (U)Ord ered By: Lawrence Wilson on 01-02-2025 Protein Ql (U) Negative Negative [facility] RBC Auto (Bld) [#/Vol]Ordere d By: Lawrence Wilson on 01-02-2025 RBC (Bld) [#/Vol] 4.26 10*6/uL Low 4.6-6.2 [facility] Serum anion gap measurementO rdered By: Lawrence Wilson on 01-02-2025 Anion gap [Moles/Vol] 5 mmol/L 5-15 [facility] Serum globulin measurementOr dered By: Lawrence Wilson on 01-02-2025 Globulin (S) [Mass/Vol] 3.7 g/dL 2.2-4.2 [facility] Serum or plasma alanine simmons otransferase (ALT) measurementOrdered By: Lawrence Wilson on 01-02-2025 ALT [Catalytic activity/Vol] 26 U/L 16-61 [facility] Serum or plasma albumin ash urement (mass/volume)Ordered By: Lawrence Wilson on 01-02-2025 Albumin [Mass/Vol] 3.5 g/dL 3.2-5.0 [facility] Serum or plasma alkaline alexandra sphatase measurementOrdered By: Lawrence Wilson on 01-02-2025 ALP [Catalytic activity/Vol] 70 U/L 45-117 [facility] Serum or plasma calcium ash urement (mass/volume)Ordered By: Lawrence Wilson on 01-02-2025 Calcium [Mass/Vol] 9.1 mg/dL 8.5-10.1 [facility] Serum or plasma cholesterol measurement (mass/volume)Ordered By: Lawrence Wilson on 01-02-2025 Cholesterol [Mass/Vol] 150 mg/dL <200 [facility] Comment on above: <200 mg/dL Desirable 200-240 mg/dL Borderline >240 mg/dL High Risk Serum or plasma creatinine m easurement (mass/volume)Ordered By: Lawrence Wilson on 01-02-2025 Creatinine [Mass/Vol] 1.04 mg/dL 0.70-1.30 [facility] Comment on above: The validity of the calculated GFR & GFRAA in patients over 70 years has not been determined. Clinical correlation is essential. Serum or plasma iron saturat ion measurement (mass fraction)Ordered By: Lawrence Wilson on 01-02-2025 Iron saturation [Mass fraction] 22.2 % 15.0-55.0 [facility] Serum or plasma thyroid stim ulating hormone (TSH) measurement (units/volume)Ordered By: Lawrence Wilson on 01-02-2025 TSH Qn 2.820 uIU/mL 0.358-3.740 [facility] Serum or plasma urea nitroge n measurement (mass/volume)Ordered By: Lawrence Wilson on 01-02-2025 Urea nitrogen [Mass/Vol] 25 mg/dL High 7-18 [facility] Sodium levelOrdered By: Lawrence Wilson on 01-02-2025 Sodium [Moles/Vol] 140 mmol/L 136-145 [facility] Squamous epithelial cells de tection in urine sediment by light microscopyOrdered By: Lawrence Wilson on 01-02-2025 Epithelial cells.squamous LM Ql (Urine sed) 0-5 SEEN /hpf 0-5 [facility] TIBCOrdered By: Lawrence vazquez on 01-02-2025 Total Iron Binding Capacity 315 ug/dL 250-450 [facility] TSH QnOrdered By: Lawrence soares on 01-02-2025 Thyroid Stimulating Hormone (TSH) 2.820 uIU/mL 0.358-3.740 [facility] Thyroid Stim Hormone (TSH)on 01-02-2025 TSH 2.820 uIU/mL Normal 0.358-3.740 [facility] Comment on above: Order Comment: PLEJENNIFER E ADD IBC [place] B12 TO BLOOD DRAWN 07/08/25 PER Order Date: 03/07/25 Order Info: [id number] - CMP Order Info: [id number] - LIPID Performed By: #### L 503.6550, L503.6030, L503.0106, L501.9940 #### [facility] [address] [place] [address]. [place], [address] Total proteinOrdered By: Gerhard Wilson on 01-02-2025 Protein [Mass/Vol] 7.2 g/dL 6.4-8.2 [facility] Triglycerides measurementOrd ered By: Lawrence Wilson on 01-02-2025 Triglyceride [Mass/Vol] 114 mg/dL <199 [facility] Comment on above: The drugs N-Acetylcy steine and Metamizole may falsely depress this assay.Serum Triglycerides Reference Interval Normal <150 mg/dL Borderline high 150 - 199 mg/dL High 200 - 499 mg/dL Very High > or = 500 mg/dL Urinalysis, Completeon 01-02 BACTERIA 1+ /hpf Normal None Seen [facility] Comment on above: Order Comment: Order Date: 03/28/24 Order Info: [id number] - CMP Order Info: [id number] - LIPID Performed By: #### L 500.4100, L500.4050, L100.0100 #### [facility] [address] [place], [address] EPI,SQUAMOUS 0-5 SEEN Normal 0-5 [facility] Comment on above: Order Comment: Order Date: 03/28/24 Order Info: [id number] - CMP Order Info: [id number] - LIPID Performed By: #### L 500.4100, L500.4050, L100.0100 #### [facility] [address] [place], [address] Mucus Ql (Urine sed) 1+ /hpf Normal [facility] Comment on above: Order Comment: Order Date: 03/28/24 Order Info: [id number] - CMP Order Info: [id number] - LIPID Performed By: #### L 500.4100, L500.4050, L100.0100 #### [facility] [address] [place], [address] RBC 0 SEEN Normal 0-5 [facility] Comment on above: Order Comment: Order Date: 03/28/24 Order Info: [id number] - CMP Order Info: [id number] - LIPID Performed By: #### L 500.4100, L500.4050, L100.0100 #### [facility] [address] [place], [address] WBC 0-5 SEEN Normal 0-5 [facility] Comment on above: Order Comment: Order Date: 03/28/24 Order Info: [id number] - CMP Order Info: [id number] - LIPID Performed By: #### L 500.4100, L500.4050, L100.0100 #### [facility] [address] [place], [address] Urine blood detectionOrdered By: Lawrence Wilson on 01-02-2025 Urine Occult Blood Negative Negative [facility] Urine clarityOrdered By: Gerhard Wilson on 01-02-2025 Clarity (U) Clear Clear [facility] Urine color determinationOrd ered By: Lawrence Wilson on 01-02-2025 Color (U) Yellow Yellow [facility] Urine glucose detectionOrder ed By: Lawrence Wilson on 01-02-2025 Glucose Ql (U) Normal mg/dl Normal [facility] Urine leukocyte esterase det ection by dipstickOrdered By: Lawrence Wilson on 01-02-2025 Leukocyte esterase Test strip Ql (U) Negative Negative [facility] Urine pHOrdered By: Lawrence galvin on 01-02-2025 pH (U) 6.0 [pH] 5.0 - 8.0 [facility] Urine sediment bacteria coun t by microscopy (number/high power field)Ordered By: Lawrence Wilson on 01-02-2025 Bacteria LM.HPF (Urine sed) [#/Area] 1 /[HPF] None Seen [facility] Urine specific gravity measu rementOrdered By: Lawrence Wilson on 01-02-2025 Specific gravity (U) [Rel density] 1.020 1.002-1.030 [facility] Urine urobilinogen measureme ntOrdered By: Lawrence Wilson on 01-02-2025 Urobilinogen Ql (U) Normal mg/dl Normal [facility] Urobilinogen Ql (U)Ordered B y: Lawrence Wilson on 01-02-2025 Urine Urobilinogen Normal mg/dl Normal [facility] Very low density lipoprotein (VLDL) cholesterol measurementOrdered By: Lawrence Wilson on 01-02-2025 Very low density lipoprotein (VLDL) cholesterol measurement 23 mg/dL 5-40 [facility] VLDL Cholesterol 23 mg/dL 5-40 [facility] Vitamin B12 measurementOrder ed By: Lawrence Wilson on 01-02-2025 Cobalamin (Vitamin B12) [Mass/Vol] 495 pg/mL 211-911 [facility] White blood cell (WBC) count Ordered By: Lawrence Wilson on 01-02-2025 WBC (Bld) [#/Vol] 4.6 10*3/uL 4.4-11.0 [facility] White blood cell countOrdere d By: Lawrence Wilson on 01-02-2025 Urine WBC 0-5 SEEN /hpf 0-5 [facility] White blood cell count 0-5 SEEN /hpf 0-5 [facility] Radiation Oncology Visiton 1 11-28-2023 Radiation Oncology Visit [facility] [address] [place] [address] OFFICE VISIT Date of Service: 09/28/24824 MR#: [id number] Acct: [id number] Name: ABRAHAN CALVERT Rep #: [id number] : 1950 From: Tucker Perry DO Age/Sex: 73/M [place] [facility] [place] Status: Signed Intake Vital Signs 03/30/24 08:25 [...] artery ( 08/11/21) Atherosclerotic heart disease of [place] coronary artery without angina pectoris Bilateral carotid [...] guided prostate biopsy was performed.??? 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 Normal [facility] CBC W/Diff, Automatedon 09-14 Absolute Lymph 1.25 X10 3/uL Normal 0.83-4.51 [facility] Comment on above: Order Comment: Order Date: 03/28/24 Order Info: [id number] - CBCD Performed By: #### L 500.4100, L500.4050, L100.0100 #### [facility] [address] [place], [place], [id number] Absolute Neut 3.0 X10 3/uL Normal 2.0-7.7 [facility] Comment on above: Order Comment: Order Date: 03/28/24 Order Info: [id number] - CBCD Performed By: #### L 500.4100, L500.4050, L100.0100 #### [facility] [address] [place], [address] Basophils/100 WBC (Bld) 1.0 % Normal 0-1 [facility] Comment on above: Order Comment: Order Date: 03/28/24 Order Info: [id number] - CBCD Performed By: #### L 500.4100, L500.4050, L100.0100 #### [facility] [address] [place], [address] Eosinophils/100 WBC (Bld) 4.1 % Normal 0-5 [facility] Comment on above: Order Comment: Order Date: 03/28/24 Order Info: [id number] - CBCD Performed By: #### L 500.4100, L500.4050, L100.0100 #### [facility] [address] [place], [address] Erythrocyte distribution width (RBC) [Ratio] 13.8 % Normal 11.6-14.6 [facility] Comment on above: Order Comment: Order Date: 03/28/24 Order Info: [id number] - CBCD Performed By: #### L 500.4100, L500.4050, L100.0100 #### [facility] [address] [place], [address] Hematocrit (Bld) [Volume fraction] 40.4 % Normal 40-54 [facility] Comment on above: Order Comment: Order Date: 03/28/24 Order Info: [id number] - CBCD Performed By: #### L 500.4100, L500.4050, L100.0100 #### [facility] [address] [place], [address] Hemoglobin (Bld) [Mass/Vol] 13.4 g/dL Normal 13.0-16.5 [facility] Comment on above: Order Comment: Order Date: 03/28/24 Order Info: [id number]- - CBCD Performed By: #### L 500.4100, L500.4050, L100.0100 #### [facility] [address] [place], [address] IG% 0.200 Normal 0.0-0.9 [facility] Comment on above: Order Comment: Order Date: 03/28/24 Order Info: [id number]- - CBCD Result Comment: IG% - Immature Granulocytes (promyelocytes, myelocytes and metamyelocytes) > 1% indicates that a LEFT SHIFT is Present. Performed By: #### L 500.4100, L500.4050, L100.0100 #### [facility] [address] [place], [address] Lymphocytes/100 WBC (Bld) 24.4 % Normal 19-41 [facility] Comment on above: Order Comment: Order Date: 03/28/24 Order Info: [id number]- - CBCD Performed By: #### L 500.4100, L500.4050, L100.0100 #### [facility] [address] [place], [address] MCH (RBC) [Entitic mass] 30.2 pg Normal 27.0-32.0 [facility] Comment on above: Order Comment: Order Date: 03/28/24 Order Info: [id number]- - CBCD Performed By: #### L 500.4100, L500.4050, L100.0100 #### [facility] [address] [place], [address] MCHC (RBC) [Mass/Vol] 33.2 g/dL Normal 32-36 [facility] Comment on above: Order Comment: Order Date: 03/28/24 Order Info: [id number]- - CBCD Performed By: #### L 500.4100, L500.4050, L100.0100 #### [facility] [address] [place], [address] MCV (RBC) [Entitic vol] 91.0 fL Normal 80-94 [facility] Comment on above: Order Comment: Order Date: 03/28/24 Order Info: [id number] - CBCD Performed By: #### L 500.4100, L500.4050, L100.0100 #### [facility] [address] [place], [address] Monocytes/100 WBC (Bld) 12.3 % High 0-10 [facility] Comment on above: Order Comment: Order Date: 03/28/24 Order Info: [id number] - CBCD Performed By: #### L 500.4100, L500.4050, L100.0100 #### [facility] [address] [place], [address] Neutrophils/100 WBC (Bld) 58.0 % Normal 47-70 [facility] Comment on above: Order Comment: Order Date: 03/28/24 Order Info: [id number] - CBCD Performed By: #### L 500.4100, L500.4050, L100.0100 #### [facility] [address] [place], [address] Nucleated RBC (Bld) [#/Vol] 0 10*3/uL Normal 0-5 [facility] Comment on above: Order Comment: Order Date: 03/28/24 Order Info: [id number] - CBCD Performed By: #### L 500.4100, L500.4050, L100.0100 #### [facility] [address] [place], [address] Platelet mean volume (Bld) [Entitic vol] 10.6 fL Normal 6.2-12.0 [facility] Comment on above: Order Comment: Order Date: 03/28/24 Order Info: [id number] - CBCD Performed By: #### L 500.4100, L500.4050, L100.0100 #### [facility] [address] [place], [address] Platelets (Bld) [#/Vol] 236 10*3/uL Normal 150-450 [facility] Comment on above: Order Comment: Order Date: 03/28/24 Order Info: [id number] - CBCD Performed By: #### L 500.4100, L500.4050, L100.0100 #### [facility] [address] [place], [address] RBC (Bld) [#/Vol] 4.44 10*6/uL Low 4.6-6.2 [facility] Comment on above: Order Comment: Order Date: 03/28/24 Order Info: [id number]- - CBCD Performed By: #### L 500.4100, L500.4050, L100.0100 #### [facility] [address] [place], [address] RDW SD 46.2 fl High 35.1-43.9 [facility] Comment on above: Order Comment: Order Date: 03/28/24 Order Info: [id number]- - CBCD Performed By: #### L 500.4100, L500.4050, L100.0100 #### [facility] [address] [place], [address] WBC (Bld) [#/Vol] 5.1 10*3/uL Normal 4.4-11.0 [facility] Comment on above: Order Comment: Order Date: 03/28/24 Order Info: [id number] - CBCD Performed By: #### L 500.4100, L500.4050, L100.0100 #### [facility] [address] [place], [address] Comprehensive Metabolic Prof ilon 09-24-2024 Albumin [Mass/Vol] 3.8 g/dL Normal 3.2-5.0 [facility] Comment on above: Order Comment: Order Date: 03/28/24 Order Info: [id number] - CMP Order Info: [id number] - LIPID Performed By: #### L 500.4100, L500.4050, L100.0100 #### [facility] [address] [place], [address] Albumin/Globulin [Mass ratio] 1.1 {ratio} Normal 0.9-2.4 [facility] Comment on above: Order Comment: Order Date: 03/28/24 Order Info: [id number] - CMP Order Info: [id number] - LIPID Performed By: #### L 500.4100, L500.4050, L100.0100 #### [facility] [address] [place], [address] ALK P 75 U/L Normal 45-117 [facility] Comment on above: Order Comment: Order Date: 03/28/24 Order Info: [id number] - CMP Order Info: [id number] - LIPID Performed By: #### L 500.4100, L500.4050, L100.0100 #### [facility] [address] [place], [address] ALT [Catalytic activity/Vol] 27 U/L Normal 16-61 [facility] Comment on above: Order Comment: Order Date: 03/28/24 Order Info: [id number] - CMP Order Info: [id number] - LIPID Performed By: #### L 500.4100, L500.4050, L100.0100 #### [facility] [address] [place], [address] AST [Catalytic activity/Vol] 15 U/L Normal 15-37 [facility] Comment on above: Order Comment: Order Date: 03/28/24 Order Info: [id number] - CMP Order Info: [id number] - LIPID Performed By: #### L 500.4100, L500.4050, L100.0100 #### [facility] [address] [place], [address] Bilirubin [Mass/Vol] 0.50 mg/dL Normal 0.20-1.00 [facility] Comment on above: Order Comment: Order Date: 03/28/24 Order Info: [id number] - CMP Order Info: [id number] - LIPID Result Comment: For patients on eltrombopag therapy, use of Dimension [place] TBIL is not recommended. Performed By: #### L 500.4100, L500.4050, L100.0100 #### [facility] [address] [place], [address] BUN/CRE 24.0 RATIO High 10-20 [facility] Comment on above: Order Comment: Order Date: 03/28/24 Order Info: [id number] - CMP Order Info: [id number] - LIPID Performed By: #### L 500.4100, L500.4050, L100.0100 #### [facility] [address] [place], [address] CA,Total 8.9 mg/dL Normal 8.5-10.1 [facility] Comment on above: Order Comment: Order Date: 03/28/24 Order Info: [id number] - CMP Order Info: [id number] - LIPID Performed By: #### L 500.4100, L500.4050, L100.0100 #### [facility] [address] [place], [address] Chloride [Moles/Vol] 109 mmol/L High 98-107 [facility] Comment on above: Order Comment: Order Date: 03/28/24 Order Info: [id number] - CMP Order Info: [id number] - LIPID Performed By: #### L 500.4100, L500.4050, L100.0100 #### [facility] [address] [place], [address] CO2 [Moles/Vol] 25.0 mmol/L Normal 21.0-32.0 [facility] Comment on above: Order Comment: Order Date: 03/28/24 Order Info: [id number] - CMP Order Info: [id number] - LIPID Performed By: #### L 500.4100, L500.4050, L100.0100 #### [facility] [address] [place], [address] Creatinine [Mass/Vol] 1.04 mg/dL Normal 0.70-1.30 [facility] Comment on above: Order Comment: Order Date: 03/28/24 Order Info: [id number] - CMP Order Info: [id number] - LIPID Result Comment: The validity of the calculated GFR GFRAA in patients over 70 years has not been determined. Clinical correlation is essential. Performed By: #### L 500.4100, L500.4050, L100.0100 #### [facility] [address] [place], [address] EST GFR - AA 90 mL/min Normal >60 [facility] Comment on above: Order Comment: Order Date: 03/28/24 Order Info: [id number] - CMP Order Info: [id number] - LIPID Result Comment: Afri can [place] GFR Calc Performed By: #### L 500.4100, L500.4050, L100.0100 #### [facility] [address] [place], [address] GAP 6 Normal 5-15 [facility] Comment on above: Order Comment: Order Date: 03/28/24 Order Info: [id number] - CMP Order Info: [id number] - LIPID Performed By: #### L 500.4100, L500.4050, L100.0100 #### [facility] [address] [place], [address] GFR/1.73 sq M.predicted among non-blacks MDRD (S/P/Bld) [Vol rate/Area] 74 mL/min/{1.73_m2} Normal >60 [facility] Comment on above: Order Comment: Order Date: 03/28/24 Order Info: [id number] - CMP Order Info: [id number] - LIPID Result Comment: Non- GFR Calc Performed By: #### L 500.4100, L500.4050, L100.0100 #### [facility] [address] [place], [address] Globulin (S) [Mass/Vol] 3.4 g/dL Normal 2.2-4.2 [facility] Comment on above: Order Comment: Order Date: 03/28/24 Order Info: 07- - CMP Order Info: [id number] - LIPID Performed By: #### L 500.4100, L500.4050, L100.0100 #### [facility] [address] [place], [address] Glucose [Mass/Vol] 93 mg/dL Normal 74-106 [facility] Comment on above: Order Comment: Order Date: 03/28/24 Order Info: 07 - CMP Order Info: [id number] - LIPID Performed By: #### L 500.4100, L500.4050, L100.0100 #### [facility] [address] [place], [address] Potassium [Moles/Vol] 4.2 mmol/L Normal 3.5-5.1 [facility] Comment on above: Order Comment: Order Date: 03/28/24 Order Info: [id number] - CMP Order Info: [id number] - LIPID Performed By: #### L 500.4100, L500.4050, L100.0100 #### [facility] [address] [place], [address] Sodium [Moles/Vol] 140 mmol/L Normal 136-145 [facility] Comment on above: Order Comment: Order Date: 03/28/24 Order Info: [id number] - CMP Order Info: [id number] - LIPID Performed By: #### L 500.4100, L500.4050, L100.0100 #### [facility] [address] [place], [address] T PROT 7.2 g/dL Normal 6.4-8.2 [facility] Comment on above: Order Comment: Order Date: 03/28/24 Order Info: [id number] - CMP Order Info: [id number] - LIPID Performed By: #### L 500.4100, L500.4050, L100.0100 #### [facility] [address] [place], [address] Urea nitrogen [Mass/Vol] 25 mg/dL High 7-18 [facility] Comment on above: Order Comment: Order Date: 03/28/24 Order Info: [id number] - CMP Order Info: [id number] - LIPID Performed By: #### L 500.4100, L500.4050, L100.0100 #### [facility] [address] [place], [address] Lipid Profileon 09-24-2024 Cholesterol [Mass/Vol] 175 mg/dL Normal 200 [facility] Comment on above: Order Comment: Order Date: 03/28/24 Order Info: [id number] - CMP Order Info: [id number] - LIPID Result Comment: <200 mg/dL Desirable 200-240 mg/dL Borderline >240 mg/dL High Risk Performed By: #### L 500.4100, L500.4050, L100.0100 #### [facility] [address] [place], [address] Cholesterol in HDL [Mass/Vol] 60 mg/dL Normal [facility] Comment on above: Order Comment: Order Date: 03/28/24 Order Info: [id number] - CMP Order Info: [id number] - LIPID Result Comment: The drugs N-Acetylcysteine and Metamizole may falsely depress this assay. Reference Range HDL <40 mg/dL Low HDL Cholesterol HDL >or= 60 mg/dL High HDL Cholesterol Performed By: #### L 500.4100, L500.4050, L100.0100 #### [facility] [address] [place], [address] Cholesterol in LDL [Mass/Vol] 96 mg/dL Normal 0-130 [facility] Comment on above: Order Comment: Order Date: 03/28/24 Order Info: [id number] - CMP Order Info: [id number] - LIPID Performed By: #### L 500.4100, L500.4050, L100.0100 #### [facility] [address] [place], [address] Cholesterol in VLDL [Mass/Vol] 19 mg/dL Normal 5-40 [facility] Comment on above: Order Comment: Order Date: 03/28/24 Order Info: [id number] - CMP Order Info: [id number] - LIPID Performed By: #### L 500.4100, L500.4050, L100.0100 #### [facility] [address] [place] [place], [address] Triglyceride [Mass/Vol] 95 mg/dL Normal [facility] Comment on above: Order Comment: Order Date: 03/28/24 Order Info: [id number] - CMP Order Info: [id number] - LIPID Result Comment: The drugs N-Acetylcysteine and Metamizole may falsely depress this assay. Serum Triglycerides Reference Interval Normal <150 mg/dL Borderline high 150 - 199 mg/dL High 200 - 499 mg/dL Very High > or = 500 mg/dL Performed By: #### L 500.4100, L500.4050, L100.0100 #### [facility] [address] [place], [address] PSA,Total- [employer] 09-14 PSA, DIAGNOSTIC 0.85 ng/mL Normal 0.0-4.0 [facility] Comment on above: Result Comment: This test was performed using the TPSA assay method for the [employer] chemistry system. Values obtained with different assay methods cannot be used interchangably. When changing PSA assays in the course of monitoring a patient, additional sequential testing should be carried out to confirm baseline values. Performed By: #### L 500.4100, L500.4050, L100.0100 #### [facility] [address] [place], [address] Absolute lymphocyte countOrd ered By: Lawrence Wilson on 01-12-2024 Lymphocytes Auto (Unsp spec) [#/Vol] 1.33 10*3/uL 0.83-4.51 [facility] Automated lymphocyte count a s percentage of total leukocytesOrdered By: Lawrence Wilson on 01-12-2024 Lymphocytes/100 WBC Auto (Unsp spec) 29.6 % 19-41 [facility] Basophil percentageOrdered B y: Lawrence Wilson on 01-12-2024 Basophils/100 WBC (Bld) 1.1 % 0-1 [facility] Bilirubin [Mass/Vol] 0.60 mg/dL 0.20-1.00 [facility] Comment on above: For patients on eltr ombopag therapy, use of Dimension [place] TBIL is not recommended. Chloride [Moles/Vol] 108 mmol/L 98-107 [facility] Cholesterol [Mass/Vol] 231 mg/dL <200 [facility] Comment on above: <200 mg/dL Desirable 200-240 mg/dL Borderline >240 mg/dL High Risk Eosinophils/100 WBC (Bld) 4.9 % 0-5 [facility] Glucose [Mass/Vol] 97 mg/dL 74-106 [facility] Hemoglobin (Bld) [Mass/Vol] 14.0 g/dL 13.0-16.5 [facility] Monocytes/100 WBC (Bld) 11.6 % 0-10 [facility] Neutrophils (Bld) [#/Vol] 2.4 10*3/uL 2.0-7.7 [facility] Neutrophils/100 WBC (Bld) 52.6 % 47-70 [facility] Potassium [Moles/Vol] 4.2 mmol/L 3.5-5.1 [facility] Protein [Mass/Vol] 7.7 g/dL 6.4-8.2 [facility] Sodium [Moles/Vol] 139 mmol/L 136-145 [facility] Triglyceride [Mass/Vol] 84 mg/dL <199 [facility] Comment on above: The drugs N-Acetylcy steine and Metamizole may falsely depress this assay.Serum Triglycerides Reference Interval Normal <150 mg/dL Borderline high 150 - 199 mg/dL High 200 - 499 mg/dL Very High > or = 500 mg/dL WBC (Bld) [#/Vol] 4.5 10*3/uL 4.4-11.0 [facility] Determination of erythrocyte mean corpuscular volume (MCV)Ordered By: Lawrence Wilson on 01-12-2024 MCV (RBC) [Entitic vol] 91.8 fL 80-94 [facility] Erythrocyte distribution wid th ratioOrdered By: Lawrence Wilson on 01-12-2024 Erythrocyte distribution width (RBC) [Ratio] 13.8 % 11.6-14.6 [facility] Erythrocyte distribution wid th standard deviationOrdered By: Lawrence Wilson on 01-12-2024 Erythrocyte distribution width (RBC) [Entitic vol] 46.8 fL 35.1-43.9 [facility] Hematocrit Auto (Bld) [Volum e fraction]Ordered By: Lawrence Wilson on 01-12-2024 Hematocrit (Bld) [Volume fraction] 41.5 % 40-54 [facility] Immature granulocytes/100 WB C Auto (Bld)Ordered By: Lawrence Wilson on 01-12-2024 Immature granulocytes/100 WBC (Bld) 0.200 % 0.0-0.9 [facility] Comment on above: IG% - Immature Granu locytes (promyelocytes, myelocytes and metamyelocytes) > 1% indicates that a LEFT SHIFT is Present. Laboratory - Chemistry and C hemistry - challengeOrdered By: Lawrence Wilson on 01-12-2024 Albumin/Globulin [Mass ratio] 1.1 {ratio} 0.9-2.4 [facility] ALP [Catalytic activity/Vol] 81 U/L 45-117 [facility] ALT [Catalytic activity/Vol] 31 U/L 16-61 [facility] Cholesterol in HDL [Mass/Vol] 60 mg/dL >40 [facility] Comment on above: The drugs N-Acetylcy steine and Metamizole may falsely depress this assay. Reference Range HDL <40 mg/dL Low HDL Cholesterol HDL >or= 60 mg/dL High HDL Cholesterol Cholesterol in LDL [Mass/Vol] 154 mg/dL 0-130 [facility] CO2 [Moles/Vol] 29.0 mmol/L 21.0-32.0 [facility] Globulin (S) [Mass/Vol] 3.7 g/dL 2.2-4.2 [facility] Urea nitrogen/Creatinine [Mass ratio] 19.8 mg/mg 10-20 [facility] - Hematology and Cell countsOrdered By: Lawrence Wilson on 01-12-2024 MCH (RBC) [Entitic mass] 31.0 pg 27.0-32.0 [facility] MCHC (RBC) [Mass/Vol] 33.7 g/dL 32-36 [facility] Nucleated RBC/100 WBC (Bld) [Ratio] 0 % 0-5 [facility] Platelet mean volume (Bld) [Entitic vol] 10.3 fL 6.2-12.0 [facility] Platelets (Bld) [#/Vol] 248 10*3/uL 150-450 [facility] No Panel InformationOrdered By: Lawrence Wilson on 01-12-2024 Estimated GFR (MDRD) Amer 83 mL/min >60 [facility] Comment on above: GFR Calc Estimated GFR (MDRD) Non-Af Amer 69 mL/min >60 [facility] Comment on above: Non- GFR Calc VLDL Cholesterol 17 mg/dL 5-40 [facility] RBC Auto (Bld) [#/Vol]Ordere d By: Lawrence Wilson on 01-12-2024 RBC (Bld) [#/Vol] 4.52 10*6/uL 4.6-6.2 [facility] Serum or plasma calcium ash urement (mass/volume)Ordered By: Lawrence Wilson on 01-12-2024 Calcium [Mass/Vol] 9.0 mg/dL 8.5-10.1 [facility] Serum or plasma creatinine m easurement (mass/volume)Ordered By: Lawrence Wilson on 01-12-2024 Creatinine [Mass/Vol] 1.11 mg/dL 0.70-1.30 [facility] Comment on above: The validity of the calculated GFR & GFRAA in patients over 70 years has not been determined. Clinical correlation is essential. Serum or plasma urea nitroge n measurement (mass/volume)Ordered By: Lawrence Wilson on 01-12-2024 Urea nitrogen [Mass/Vol] 22 mg/dL 7-18 [facility] Thin prep Papanicolaou smear with manual screeningOrdered By: Lawrence Wilson on 01-12-2024 Thin prep Papanicolaou smear with manual screening 4.0 g/dL 3.2-5.0 [facility] Thin prep Papanicolaou smear with manual screening 19 U/L 15-37 [facility] Thin prep Papanicolaou smear with manual screening 2 5-15 [facility] Absolute lymphocyte countOrd ered By: Lawrence Wilson on 09-19-2023 Lymphocytes Auto (Unsp spec) [#/Vol] 1.28 10*3/uL 0.83-4.51 [facility] Basophil percentageOrdered B y: Lawrence Wilson on 09-19-2023 Basophils/100 WBC (Bld) 1.1 % 0-1 [facility] Bilirubin [Mass/Vol] 0.40 mg/dL 0.20-1.00 [facility] Comment on above: For patients on eltr ombopag therapy, use of Dimension [place] TBIL is not recommended. Chloride [Moles/Vol] 108 mmol/L 98-107 [facility] Cholesterol [Mass/Vol] 165 mg/dL <200 [facility] Comment on above: <200 mg/dL Desirable 200-240 mg/dL Borderline >240 mg/dL High Risk Eosinophils/100 WBC (Bld) 3.9 % 0-5 [facility] Glucose [Mass/Vol] 95 mg/dL 74-106 [facility] Neutrophils (Bld) [#/Vol] 2.3 10*3/uL 2.0-7.7 [facility] Neutrophils/100 WBC (Bld) 52.8 % 47-70 [facility] Potassium [Moles/Vol] 4.3 mmol/L 3.5-5.1 [facility] Protein [Mass/Vol] 7.4 g/dL 6.4-8.2 [facility] Sodium [Moles/Vol] 139 mmol/L 136-145 [facility] Triglyceride [Mass/Vol] 97 mg/dL <199 [facility] Comment on above: The drugs N-Acetylcy steine and Metamizole may falsely depress this assay.Serum Triglycerides Reference Interval Normal <150 mg/dL Borderline high 150 - 199 mg/dL High 200 - 499 mg/dL Very High > or = 500 mg/dL WBC (Bld) [#/Vol] 4.4 10*3/uL 4.4-11.0 [facility] Blood erythrocytes count (nu mber/volume)Ordered By: Lawrence Wilson on 09-19-2023 RBC (Bld) [#/Vol] 4.46 10*6/uL 4.6-6.2 [facility] Blood hemoglobin measurement (mass/volume)Ordered By: Lawrence Wilson on 09-19-2023 Hemoglobin (Bld) [Mass/Vol] 13.4 g/dL 13.0-16.5 [facility] Blood lymphocytes/100 leukoc ytesOrdered By: Lawrence Wilson on 09-19-2023 Lymphocytes/100 WBC (Bld) 29.4 % 19-41 [facility] Blood monocytes/100 leukocyt esOrdered By: Lawrence Wilson on 09-19-2023 Monocytes/100 WBC (Bld) 12.6 % 0-10 [facility] Blood platelet mean volumeOr dered By: Lawrence Wilson on 09-19-2023 Platelet mean volume (Bld) [Entitic vol] 10.7 fL 6.2-12.0 [facility] Determination of erythrocyte mean corpuscular volume (MCV)Ordered By: Lawrence Wilson on 09-19-2023 MCV (RBC) [Entitic vol] 91.7 fL 80-94 [facility] Hematocrit Auto (Bld) [Volum e fraction]Ordered By: Lawrence Wilson on 09-19-2023 Hematocrit (Bld) [Volume fraction] 40.9 % 40-54 [facility] - Chemistry and C hemistry - challengeOrdered By: Lawrence Wilson on 09-19-2023 ALP [Catalytic activity/Vol] 78 U/L 45-117 [facility] ALT [Catalytic activity/Vol] 32 U/L 16-61 [facility] CO2 [Moles/Vol] 26.0 mmol/L 21.0-32.0 [facility] Globulin (S) [Mass/Vol] 3.8 g/dL 2.2-4.2 [facility] Urea nitrogen/Creatinine [Mass ratio] 28.0 mg/mg 10-20 [facility] - Hematology and Cell countsOrdered By: Lawrence Wilson on 09-19-2023 Erythrocyte distribution width (RBC) [Entitic vol] 45.0 fL 35.1-43.9 [facility] Erythrocyte distribution width (RBC) [Ratio] 13.3 % 11.6-14.6 [facility] Immature granulocytes/100 WBC (Bld) 0.200 % 0.0-0.9 [facility] Comment on above: IG% - Immature Granu locytes (promyelocytes, myelocytes and metamyelocytes) > 1% indicates that a LEFT SHIFT is Present. MCH (RBC) [Entitic mass] 30.0 pg 27.0-32.0 [facility] Nucleated RBC/100 WBC (Bld) [Ratio] 0 % 0-5 [facility] MCHC Auto (RBC) [Mass/Vol]Or dered By: Lawrence Wilson on 09-19-2023 MCHC (RBC) [Mass/Vol] 32.8 g/dL 32-36 [facility] No Panel InformationOrdered By: Tucker Perry on 09-19-2023 Prostate Specific Antigen Total 1.30 ng/mL 0.0-4.0 [facility] Comment on above: This test was perfor med using the TPSA assay method [facility]. Values obtained with differentassay methods cannot be used interchangably.When changing PSA assays in the course of monitoring apatient, additional sequential testing should be carriedout to confirm baseline values. No Panel InformationOrdered By: Lawrence Wilson on 09-19-2023 Estimated GFR (MDRD) Amer 87 mL/min >60 [facility] Comment on above: GFR Calc Estimated GFR (MDRD) Non-Af Amer 72 mL/min >60 [facility] Comment on above: Non- GFR Calc Platelets bldOrdered By: Gerhard Wilson on 09-19-2023 Platelets (Bld) [#/Vol] 233 10*3/uL 150-450 [facility] Serum or plasma albumin ash urement (mass/volume)Ordered By: Lawrence Wilson on 09-19-2023 Albumin [Mass/Vol] 3.6 g/dL 3.2-5.0 [facility] Serum or plasma albumin/glob ulin mass ratioOrdered By: Lawrence Wilson on 09-19-2023 Albumin/Globulin [Mass ratio] 0.9 {ratio} 0.9-2.4 [facility] Serum or plasma calcium ash urement (mass/volume)Ordered By: Lawrence Wilson on 09-19-2023 Calcium [Mass/Vol] 8.9 mg/dL 8.5-10.1 [facility] Serum or plasma cholesterol in HDL measurement (mass/volume)Ordered By: Lawrence Wilson on 09-19-2023 Cholesterol in HDL [Mass/Vol] 51 mg/dL >40 [facility] Comment on above: The drugs N-Acetylcy steine and Metamizole may falsely depress this assay. Reference Range HDL <40 mg/dL Low HDL Cholesterol HDL >or= 60 mg/dL High HDL Cholesterol Serum or plasma cholesterol in VLDL measurement (mass/volume)Ordered By: Lawrence Wilson on 09-19-2023 Cholesterol in VLDL [Mass/Vol] 19 mg/dL 5-40 [facility] Serum or plasma creatinine m easurement (mass/volume)Ordered By: Lawrence Wilson on 09-19-2023 Creatinine [Mass/Vol] 1.07 mg/dL 0.70-1.30 [facility] Comment on above: The validity of the calculated GFR & GFRAA in patients over 70 years has not been determined. Clinical correlation is essential. Serum or plasma low density lipoprotein (LDL) cholesterol measurement (mass/volume)Ordered By: Lawrence Wilson on 09-19-2023 Cholesterol in LDL [Mass/Vol] 95 mg/dL 0-130 [facility] Serum or plasma urea nitroge n measurement (mass/volume)Ordered By: Lawrence Wilson on 09-19-2023 Urea nitrogen [Mass/Vol] 30 mg/dL 7-18 [facility] Thin prep Papanicolaou smear with manual screeningOrdered By: Lawrence Wilson on 09-19-2023 Thin prep Papanicolaou smear with manual screening 20 U/L 15-37 [facility] Thin prep Papanicolaou smear with manual screening 5 5-15 [facility] Absolute lymphocyte countOrd ered By: Dr. Wilson on 03-11-2023 Lymphocytes Auto (Unsp spec) [#/Vol] 1.14 10*3/uL 0.83-4.51 [facility] Basophil percentageOrdered B y: Dr. Wilson on 03-11-2023 Basophils/100 WBC (Bld) 1.0 % 0-1 [facility] Bilirubin [Mass/Vol] 0.60 mg/dL 0.20-1.00 [facility] Comment on above: For patients on eltr ombopag therapy, use of Dimension [place] TBIL is not recommended. Chloride [Moles/Vol] 107 mmol/L 98-107 [facility] Cholesterol [Mass/Vol] 195 mg/dL <200 [facility] Comment on above: <200 mg/dL Desirable 200-240 mg/dL Borderline >240 mg/dL High Risk Eosinophils/100 WBC (Bld) 3.5 % 0-5 [facility] Glucose [Mass/Vol] 89 mg/dL 74-106 [facility] Neutrophils (Bld) [#/Vol] 2.2 10*3/uL 2.0-7.7 [facility] Neutrophils/100 WBC (Bld) 53.5 % 47-70 [facility] Potassium [Moles/Vol] 4.1 mmol/L 3.5-5.1 [facility] Protein [Mass/Vol] 7.2 g/dL 6.4-8.2 [facility] Sodium [Moles/Vol] 138 mmol/L 136-145 [facility] Triglyceride [Mass/Vol] 83 mg/dL <199 [facility] Comment on above: The drugs N-Acetylcy steine and Metamizole may falsely depress this assay.Serum Triglycerides Reference Interval Normal <150 mg/dL Borderline high 150 - 199 mg/dL High 200 - 499 mg/dL Very High > or = 500 mg/dL WBC (Bld) [#/Vol] 4.0 10*3/uL 4.4-11.0 [facility] Blood erythrocytes count (nu mber/volume)Ordered By: Dr. Wilson on 03-11-2023 RBC (Bld) [#/Vol] 4.38 10*6/uL 4.6-6.2 [facility] Blood hemoglobin measurement (mass/volume)Ordered By: Dr. Wilson on 03-11-2023 Hemoglobin (Bld) [Mass/Vol] 13.4 g/dL 13.0-16.5 [facility] Blood lymphocytes/100 leukoc ytesOrdered By: Dr. Wilson on 03-11-2023 Lymphocytes/100 WBC (Bld) 28.4 % 19-41 [facility] Blood monocytes/100 leukocyt esOrdered By: Dr. Wilson on 03-11-2023 Monocytes/100 WBC (Bld) 13.4 % 0-10 [facility] Blood platelet mean volumeOr dered By: Dr. Wilson on 03-11-2023 Platelet mean volume (Bld) [Entitic vol] 10.7 fL 6.2-12.0 [facility] Determination of erythrocyte mean corpuscular volume (MCV)Ordered By: Dr. Wilson on 03-11-2023 MCV (RBC) [Entitic vol] 93.2 fL 80-94 [facility] Hematocrit Auto (Bld) [Volum e fraction]Ordered By: Dr. Wilson on 03-11-2023 Hematocrit (Bld) [Volume fraction] 40.8 % 40-54 [facility] - Chemistry and C hemistry - challengeOrdered By: Dr. Wilson on 03-11-2023 ALP [Catalytic activity/Vol] 76 U/L 45-117 [facility] ALT [Catalytic activity/Vol] 31 U/L 16-61 [facility] CO2 [Moles/Vol] 28.0 mmol/L 21.0-32.0 [facility] Globulin (S) [Mass/Vol] 3.5 g/dL 2.2-4.2 [facility] Urea nitrogen/Creatinine [Mass ratio] 24.3 mg/mg 10-20 [facility] - Hematology and Cell countsOrdered By: Dr. Wilson on 03-11-2023 Erythrocyte distribution width (RBC) [Entitic vol] 47.4 fL 35.1-43.9 [facility] Erythrocyte distribution width (RBC) [Ratio] 13.8 % 11.6-14.6 [facility] Immature granulocytes/100 WBC (Bld) 0.200 % 0.0-0.9 [facility] Comment on above: IG% - Immature Granu locytes (promyelocytes, myelocytes and metamyelocytes) > 1% indicates that a LEFT SHIFT is Present. MCH (RBC) [Entitic mass] 30.6 pg 27.0-32.0 [facility] Nucleated RBC/100 WBC (Bld) [Ratio] 0 % 0-5 [facility] MCHC Auto (RBC) [Mass/Vol]Or dered By: Dr. Wilson on 03-11-2023 MCHC (RBC) [Mass/Vol] 32.8 g/dL 32-36 [facility] No Panel InformationOrdered By: Dr. Wilson on 03-11-2023 Estimated GFR (MDRD) Amer 91 mL/min >60 [facility] Comment on above: GFR Calc Estimated GFR (MDRD) Non-Af Amer 75 mL/min >60 [facility] Comment on above: Non- GFR Calc No Panel InformationOrdered By: Dr. Perry on 03-11-2023 Prostate Specific Antigen Total 1.02 ng/mL 0.0-4.0 [facility] Comment on above: This test was perfor med using the TPSA assay method [facility]. Values obtained with differentassay methods cannot be used interchangably.When changing PSA assays in the course of monitoring apatient, additional sequential testing should be carriedout to confirm baseline values. Platelets bldOrdered By: Dr. Wilson on 03-11-2023 Platelets (Bld) [#/Vol] 222 10*3/uL 150-450 [facility] Serum or plasma albumin ash urement (mass/volume)Ordered By: Dr. Wilson on 03-11-2023 Albumin [Mass/Vol] 3.7 g/dL 3.2-5.0 [facility] Serum or plasma albumin/glob ulin mass ratioOrdered By: Dr. Wilson on 03-11-2023 Albumin/Globulin [Mass ratio] 1.1 {ratio} 0.9-2.4 [facility] Serum or plasma calcium ash urement (mass/volume)Ordered By: Dr. Wilson on 03-11-2023 Calcium [Mass/Vol] 8.7 mg/dL 8.5-10.1 [facility] Serum or plasma cholesterol in HDL measurement (mass/volume)Ordered By: Dr. Wilson on 03-11-2023 Cholesterol in HDL [Mass/Vol] 55 mg/dL >40 [facility] Comment on above: The drugs N-Acetylcy steine and Metamizole may falsely depress this assay. Reference Range HDL <40 mg/dL Low HDL Cholesterol HDL >or= 60 mg/dL High HDL Cholesterol Serum or plasma cholesterol in VLDL measurement (mass/volume)Ordered By: Dr. Wilson on 03-11-2023 Cholesterol in VLDL [Mass/Vol] 17 mg/dL 5-40 [facility] Serum or plasma creatinine m easurement (mass/volume)Ordered By: Dr. Wilson on 03-11-2023 Creatinine [Mass/Vol] 1.03 mg/dL 0.70-1.30 [facility] Comment on above: The validity of the calculated GFR & GFRAA in patients over 70 years has not been determined. Clinical correlation is essential. Serum or plasma low density lipoprotein (LDL) cholesterol measurement (mass/volume)Ordered By: Dr. Wilson on 03-11-2023 Cholesterol in LDL [Mass/Vol] 123 mg/dL 0-130 [facility] Serum or plasma urea nitroge n measurement (mass/volume)Ordered By: Dr. Wilson on 03-11-2023 Urea nitrogen [Mass/Vol] 25 mg/dL 7-18 [facility] Thin prep Papanicolaou smear with manual screeningOrdered By: Dr. Wilson on 03-11-2023 Thin prep Papanicolaou smear with manual screening 21 U/L 15-37 [facility] Thin prep Papanicolaou smear with manual screening 3 5-15 [facility] No Panel InformationOrdered By: Dr. Perry on 12-03-2022 Prostate Specific Antigen Total 1.46 ng/mL 0.0-4.0 [facility] Comment on above: This test was perfor med using the TPSA assay method for the[facility] system. Values obtained with differentassay methods cannot be used interchangably.When changing PSA assays in the course of monitoring apatient, additional sequential testing should be carriedout to confirm baseline values. Absolute lymphocyte countOrd ered By: Dr. Wilson on 10-08-2022 Lymphocytes Auto (Unsp spec) [#/Vol] 1.38 10*3/uL 0.83-4.51 [facility] Basophil percentageOrdered B y: Dr. Wilson on 10-08-2022 Basophils/100 WBC (Bld) 1.2 % 0-1 [facility] Bilirubin [Mass/Vol] 0.60 mg/dL 0.20-1.00 [facility] Comment on above: For patients on eltr ombopag therapy, use of Dimension [place] TBIL is not recommended. Chloride [Moles/Vol] 106 mmol/L 98-107 [facility] Cholesterol [Mass/Vol] 181 mg/dL <200 [facility] Comment on above: <200 mg/dL Desirable 200-240 mg/dL Borderline >240 mg/dL High Risk Eosinophils/100 WBC (Bld) 4.0 % 0-5 [facility] Glucose [Mass/Vol] 95 mg/dL 74-106 [facility] Neutrophils (Bld) [#/Vol] 2.1 10*3/uL 2.0-7.7 [facility] Neutrophils/100 WBC (Bld) 49.7 % 47-70 [facility] Potassium [Moles/Vol] 4.6 mmol/L 3.5-5.1 [facility] Protein [Mass/Vol] 7.1 g/dL 6.4-8.2 [facility] Sodium [Moles/Vol] 141 mmol/L 136-145 [facility] Triglyceride [Mass/Vol] 96 mg/dL <199 [facility] Comment on above: The drugs N-Acetylcy steine and Metamizole may falsely depress this assay.Serum Triglycerides Reference Interval Normal <150 mg/dL Borderline high 150 - 199 mg/dL High 200 - 499 mg/dL Very High > or = 500 mg/dL WBC (Bld) [#/Vol] 4.3 10*3/uL 4.4-11.0 [facility] Blood erythrocytes count (nu mber/volume)Ordered By: Dr. Wilson on 10-08-2022 RBC (Bld) [#/Vol] 4.32 10*6/uL 4.6-6.2 [facility] Blood hemoglobin measurement (mass/volume)Ordered By: Dr. Wilson on 10-08-2022 Hemoglobin (Bld) [Mass/Vol] 13.4 g/dL 13.0-16.5 [facility] Blood lymphocytes/100 leukoc ytesOrdered By: Dr. Wilson on 10-08-2022 Lymphocytes/100 WBC (Bld) 32.2 % 19-41 [facility] Blood monocytes/100 leukocyt esOrdered By: Dr. Wilson on 10-08-2022 Monocytes/100 WBC (Bld) 12.9 % 0-10 [facility] Blood platelet mean volumeOr dered By: Dr. Wilson on 10-08-2022 Platelet mean volume (Bld) [Entitic vol] 10.2 fL 6.2-12.0 [facility] Determination of erythrocyte mean corpuscular volume (MCV)Ordered By: Dr. Wilson on 10-08-2022 MCV (RBC) [Entitic vol] 92.6 fL 80-94 [facility] Hematocrit Auto (Bld) [Volum e fraction]Ordered By: Dr. Wilson on 10-08-2022 Hematocrit (Bld) [Volume fraction] 40.0 % 40-54 [facility] Laboratory - Chemistry and C hemistry - challengeOrdered By: Dr. Wilson on 10-08-2022 ALP [Catalytic activity/Vol] 75 U/L 45-117 [facility] ALT [Catalytic activity/Vol] 31 U/L 16-61 [facility] CO2 [Moles/Vol] 29.0 mmol/L 21.0-32.0 [facility] Globulin (S) [Mass/Vol] 3.3 g/dL 2.2-4.2 [facility] Urea nitrogen/Creatinine [Mass ratio] 22.6 mg/mg 10-20 [facility] Laboratory - Hematology and Cell countsOrdered By: Dr. Wilson on 10-08-2022 Erythrocyte distribution width (RBC) [Entitic vol] 45.0 fL 35.1-43.9 [facility] Erythrocyte distribution width (RBC) [Ratio] 13.3 % 11.6-14.6 [facility] Immature granulocytes/100 WBC (Bld) 0.000 % 0.0-0.9 [facility] Comment on above: IG% - Immature Granu locytes (promyelocytes, myelocytes and metamyelocytes) > 1% indicates that a LEFT SHIFT is Present. MCH (RBC) [Entitic mass] 31.0 pg 27.0-32.0 [facility] Nucleated RBC/100 WBC (Bld) [Ratio] 0 % 0-5 [facility] MCHC Auto (RBC) [Mass/Vol]Or dered By: Dr. Wilson on 10-08-2022 MCHC (RBC) [Mass/Vol] 33.5 g/dL 32-36 [facility] No Panel InformationOrdered By: Dr. Wilson on 10-08-2022 Estimated GFR (MDRD) Amer 80 mL/min >60 [facility] Comment on above: GFR Calc Estimated GFR (MDRD) Non-Af Amer 66 mL/min >60 [facility] Comment on above: Non- GFR Calc Platelets bldOrdered By: Dr. Wilson on 10-08-2022 Platelets (Bld) [#/Vol] 234 10*3/uL 150-450 [facility] Serum or plasma albumin ash urement (mass/volume)Ordered By: Dr. Wilson on 10-08-2022 Albumin [Mass/Vol] 3.8 g/dL 3.2-5.0 [facility] Serum or plasma albumin/glob ulin mass ratioOrdered By: Dr. Wilson on 10-08-2022 Albumin/Globulin [Mass ratio] 1.2 {ratio} 0.9-2.4 [facility] Serum or plasma calcium ash urement (mass/volume)Ordered By: Dr. Wilson on 10-08-2022 Calcium [Mass/Vol] 8.8 mg/dL 8.5-10.1 [facility] Serum or plasma cholesterol in HDL measurement (mass/volume)Ordered By: Dr. Wilson on 10-08-2022 Cholesterol in HDL [Mass/Vol] 55 mg/dL >40 [facility] Comment on above: The drugs N-Acetylcy steine and Metamizole may falsely depress this assay. Reference Range HDL <40 mg/dL Low HDL Cholesterol HDL >or= 60 mg/dL High HDL Cholesterol Serum or plasma cholesterol in VLDL measurement (mass/volume)Ordered By: Dr. Wilson on 10-08-2022 Cholesterol in VLDL [Mass/Vol] 19 mg/dL 5-40 [facility] Serum or plasma creatinine m easurement (mass/volume)Ordered By: Dr. Wilson on 10-08-2022 Creatinine [Mass/Vol] 1.15 mg/dL 0.70-1.30 [facility] Comment on above: The validity of the calculated GFR & GFRAA in patients over 70 years has not been determined. Clinical correlation is essential. Serum or plasma low density lipoprotein (LDL) cholesterol measurement (mass/volume)Ordered By: Dr. Wilson on 10-08-2022 Cholesterol in LDL [Mass/Vol] 107 mg/dL 0-130 [facility] Serum or plasma urea nitroge n measurement (mass/volume)Ordered By: Dr. Wilson on 10-08-2022 Urea nitrogen [Mass/Vol] 26 mg/dL 7-18 [facility] Thin prep Papanicolaou smear with manual screeningOrdered By: Dr. Wilson on 10-08-2022 Thin prep Papanicolaou smear with manual screening 24 U/L 15-37 [facility] Thin prep Papanicolaou smear with manual screening 6 5-15 [facility] No Panel Informationon 08-02 Prostate Specific Antigen Total 1.19 ng/mL 0.0-4.0 [facility] Work Phone: Comment on above: This test was perfor med using the TPSA assay method for the[employer] chemistry system. Values obtained with differentassay methods cannot be used interchangably.When changing PSA assays in the course of monitoring apatient, additional sequential testing should be carriedout to confirm baseline values. Absolute lymphocyte counton 06-08-2022 Lymphocytes Auto (Unsp spec) [#/Vol] 1.38 10*3/uL 0.83-4.51 [facility] Work Phone: Basophil percentageon 2021 Basophils/100 WBC (Bld) 0.9 % 0-1 [facility] Work Phone: [phone] Bilirubin [Mass/Vol] 0.80 mg/dL 0.20-1.00 [facility] Work Phone: [phone] Comment on above: For patients on eltr ombopag therapy, use of Dim[place] TBIL is not recommended. Chloride [Moles/Vol] 109 mmol/L 98-107 [facility] Work Phone: [phone] Cholesterol [Mass/Vol] 230 mg/dL <200 [facility] Work Phone: Comment on above: <200 mg/dL Desirable 200-240 mg/dL Borderline >240 mg/dL High Risk Eosinophils/100 WBC (Bld) 3.1 % 0-5 [facility] Work Phone: Glucose [Mass/Vol] 94 mg/dL 74-106 [facility] Work Phone: Neutrophils (Bld) [#/Vol] 2.3 10*3/uL 2.0-7.7 [facility] Work Phone: Neutrophils/100 WBC (Bld) 52.7 % 47-70 [facility] Work Phone: Potassium [Moles/Vol] 4.1 mmol/L 3.5-5.1 [facility] Work Phone: Protein [Mass/Vol] 7.4 g/dL 6.4-8.2 [facility] Work Phone: [phone] Sodium [Moles/Vol] 140 mmol/L 136-145 [facility] Work Phone: Triglyceride [Mass/Vol] 133 mg/dL <199 [facility] Work Phone: [phone] Comment on above: The drugs N-Acetylcy steine and Metamizole may falsely depress this assay.Serum Triglycerides Reference Interval Normal <150 mg/dL Borderline high 150 - 199 mg/dL High 200 - 499 mg/dL Very High > or = 500 mg/dL WBC (Bld) [#/Vol] 4.5 10*3/uL 4.4-11.0 [facility]: Blood erythrocytes count (nu mber/volume)on 06-08-2022 RBC (Bld) [#/Vol] 4.44 10*6/uL 4.6-6.2 [facility] Work Phone: Blood hemoglobin measurement (mass/volume)on 06-08-2022 Hemoglobin (Bld) [Mass/Vol] 13.9 g/dL 13.0-16.5 [facility] Work Phone: Blood lymphocytes/100 leukoc yteson 06-08-2022 Lymphocytes/100 WBC (Bld) 31.0 % 19-41 [facility] Work Phone: Blood monocytes/100 leukocyt eson 06-08-2022 Monocytes/100 WBC (Bld) 12.1 % 0-10 [facility] Work Phone: Blood platelet mean volumeon 06-08-2022 Platelet mean volume (Bld) [Entitic vol] 10.8 fL 6.2-12.0 [facility] Work Phone: Determination of erythrocyte mean corpuscular volume (MCV)on 06-08-2022 MCV (RBC) [Entitic vol] 92.6 fL 80-94 [facility] Work Phone: Hematocrit Auto (Bld) [Volum e fraction]on 06-08-2022 Hematocrit (Bld) [Volume fraction] 41.1 % 40-54 [facility] Work Phone: Laboratory - Chemistry and C hemistry - challengeon 06-08-2022 ALP [Catalytic activity/Vol] 71 U/L 45-117 [facility] Work Phone: ALT [Catalytic activity/Vol] 26 U/L 16-61 [facility] Work Phone: CO2 [Moles/Vol] 27.0 mmol/L 21.0-32.0 [facility] Work Phone: Globulin (S) [Mass/Vol] 3.7 g/dL 2.2-4.2 [facility] Work Phone: Urea nitrogen/Creatinine [Mass ratio] 27.8 mg/mg 10-20 [facility] Work Phone: Laboratory - Hematology and Cell countson 06-08-2022 Erythrocyte distribution width (RBC) [Entitic vol] 46.3 fL 35.1-43.9 [facility] Work Phone: Erythrocyte distribution width (RBC) [Ratio] 13.6 % 11.6-14.6 [facility] Work Phone: Immature granulocytes/100 WBC (Bld) 0.200 % 0.0-0.9 [facility] Work Phone: Comment on above: IG% - Immature Granu locytes (promyelocytes, myelocytes and metamyelocytes) > 1% indicates that a LEFT SHIFT is Present. MCH (RBC) [Entitic mass] 31.3 pg 27.0-32.0 [facility] Work Phone: Nucleated RBC/100 WBC (Bld) [Ratio] 0 % 0-5 [facility] Work Phone: MCHC Auto (RBC) [Mass/Vol]on 06-08-2022 MCHC (RBC) [Mass/Vol] 33.8 g/dL 32-36 [facility] Work Phone: No Panel Informationon 06-08 Estimated GFR (MDRD) Amer 86 mL/min >60 [facility] Work Phone: Comment on above: GFR Calc Estimated GFR (MDRD) Non-Af Amer 71 mL/min >60 [facility] Work Phone: Comment on above: Non- GFR Calc Platelets bldon 06-08-2022 Platelets (Bld) [#/Vol] 207 10*3/uL 150-450 [facility] Work Phone: Serum or plasma albumin ash urement (mass/volume)on 06-08-2022 Albumin [Mass/Vol] 3.7 g/dL 3.2-5.0 [facility] Work Phone: Serum or plasma albumin/glob ulin mass ratioon 06-08-2022 Albumin/Globulin [Mass ratio] 1.0 {ratio} 0.9-2.4 [facility] Work Phone: Serum or plasma calcium ash urement (mass/volume)on 06-08-2022 Calcium [Mass/Vol] 9.0 mg/dL 8.5-10.1 [facility] Work Phone: Serum or plasma cholesterol in HDL measurement (mass/volume)on 06-08-2022 Cholesterol in HDL [Mass/Vol] 47 mg/dL >40 [facility] Work Phone: Comment on above: The drugs N-Acetylcy steine and Metamizole may falsely depress this assay. Reference Range HDL <40 mg/dL Low HDL Cholesterol HDL >or= 60 mg/dL High HDL Cholesterol Serum or plasma cholesterol in VLDL measurement (mass/volume)on 06-08-2022 Cholesterol in VLDL [Mass/Vol] 27 mg/dL 5-40 [facility] Work Phone: Serum or plasma creatinine m easurement (mass/volume)on 06-08-2022 Creatinine [Mass/Vol] 1.08 mg/dL 0.70-1.30 [facility] Work Phone: Comment on above: The validity of the calculated GFR & GFRAA in patients over 70 years has not been determined. Clinical correlation is essential. Serum or plasma low density lipoprotein (LDL) cholesterol measurement (mass/volume)on 06-08-2022 Cholesterol in LDL [Mass/Vol] 156 mg/dL 0-130 [facility] Work Phone: Serum or plasma urea nitroge n measurement (mass/volume)on 06-08-2022 Urea nitrogen [Mass/Vol] 30 mg/dL 7-18 [facility] Work Phone: Thin prep Papanicolaou smear with manual screeningon 06-08-2022 Thin prep Papanicolaou smear with manual screening 21 U/L 15-37 [facility] Work Phone: Thin prep Papanicolaou smear with manual screening 4 5-15 [facility] Work Phone: Basophil percentageon 2021 Bilirubin [Mass/Vol] 0.70 mg/dL 0.20-1.00 [facility] Work Phone: Comment on above: For patients on eltr ombopag therapy, use of [place] TBIL is not recommended. Chloride [Moles/Vol] 106 mmol/L 98-107 [facility] Work Phone: Cholesterol [Mass/Vol] 241 mg/dL <200 [facility] Work Phone: Comment on above: <200 mg/dL Desirable 200-240 mg/dL Borderline >240 mg/dL High Risk Glucose [Mass/Vol] 90 mg/dL 74-106 [facility] Work Phone: Potassium [Moles/Vol] 4.2 mmol/L 3.5-5.1 [facility] Work Phone: Protein [Mass/Vol] 7.3 g/dL 6.4-8.2 [facility] Work Phone: Sodium [Moles/Vol] 138 mmol/L 136-145 [facility] Work Phone: Triglyceride [Mass/Vol] 97 mg/dL [facility] Work Phone: Comment on above: The drugs N-Acetylcy steine and Metamizole may falsely depress this assay.Serum Triglycerides Reference Interval Normal <150 mg/dL Borderline high 150 - 199 mg/dL High 200 - 499 mg/dL Very High > or = 500 mg/dL Laboratory - Chemistry and C hemistry - challengeon 03-10-2022 ALP [Catalytic activity/Vol] 70 U/L 45-117 [facility] Work Phone: ALT [Catalytic activity/Vol] 30 U/L 16-61 [facility] Work Phone: CO2 [Moles/Vol] 27.0 mmol/L 21.0-32.0 [facility] Work Phone: Globulin (S) [Mass/Vol] 3.6 g/dL 2.2-4.2 [facility] Work Phone: Urea nitrogen/Creatinine [Mass ratio] 19.5 mg/mg 10-20 [facility] Work Phone: No Panel Informationon 03-10 Estimated GFR (MDRD) Amer 82 mL/min >60 [facility] Work Phone: Comment on above: GFR Calc Estimated GFR (MDRD) Non-Af Amer 68 mL/min >60 [facility] Work Phone: Comment on above: Non- GFR Calc Serum or plasma albumin ash urement (mass/volume)on 03-10-2022 Albumin [Mass/Vol] 3.7 g/dL 3.2-5.0 [facility] Work Phone: Serum or plasma albumin/glob ulin mass ratioon 03-10-2022 Albumin/Globulin [Mass ratio] 1.0 {ratio} 0.9-2.4 [facility] Work Phone: Serum or plasma calcium ash urement (mass/volume)on 03-10-2022 Calcium [Mass/Vol] 8.4 mg/dL 8.5-10.1 [facility] Work Phone: Serum or plasma cholesterol in HDL measurement (mass/volume)on 03-10-2022 Cholesterol in HDL [Mass/Vol] 48 mg/dL [facility] Work Phone: Comment on above: The drugs N-Acetylcy steine and Metamizole may falsely depress this assay. Reference Range HDL <40 mg/dL Low HDL Cholesterol HDL >or= 60 mg/dL High HDL Cholesterol Serum or plasma cholesterol in VLDL measurement (mass/volume)on 03-10-2022 Cholesterol in VLDL [Mass/Vol] 19 mg/dL 5-40 [facility] Work Phone: Serum or plasma creatinine m easurement (mass/volume)on 03-10-2022 Creatinine [Mass/Vol] 1.13 mg/dL 0.70-1.30 [facility] Work Phone: Comment on above: The validity of the calculated GFR & GFRAA in patients over 70 years has not been determined. Clinical correlation is essential. Serum or plasma low density lipoprotein (LDL) cholesterol measurement (mass/volume)on 03-10-2022 Cholesterol in LDL [Mass/Vol] 174 mg/dL 0-130 [facility] Work Phone: Serum or plasma urea nitroge n measurement (mass/volume)on 03-10-2022 Urea nitrogen [Mass/Vol] 22 mg/dL 7-18 [facility] Work Phone: Thin prep Papanicolaou smear with manual screeningon 03-10-2022 Thin prep Papanicolaou smear with manual screening 23 U/L 15-37 [facility] Work Phone: Thin prep Papanicolaou smear with manual screening 5 5-15 [facility] Work Phone: Absolute lymphocyte counton 12-07-2021 Lymphocytes Auto (Unsp spec) [#/Vol] 1.31 10*3/uL 0.83-4.51 [facility] Work Phone: Basophil percentageon 2021 Basophils/100 WBC (Bld) 1.1 % 0-1 [facility] Work Phone: Bilirubin [Mass/Vol] 0.50 mg/dL 0.20-1.00 [facility] Work Phone: Comment on above: For patients on eltr ombopag therapy, use of Dimension [place] TBIL is not recommended. Chloride [Moles/Vol] 105 mmol/L 98-107 [facility] Work Phone: Cholesterol [Mass/Vol] 233 mg/dL <200 [facility] Work Phone: Comment on above: <200 mg/dL Desirable 200-240 mg/dL Borderline >240 mg/dL High Risk Eosinophils/100 WBC (Bld) 5.0 % 0-5 [facility] Work Phone: Glucose [Mass/Vol] 79 mg/dL 74-106 [facility] Work Phone: Neutrophils (Bld) [#/Vol] 2.4 10*3/uL 2.0-7.7 [facility] Work Phone: Neutrophils/100 WBC (Bld) 53.0 % 47-70 [facility] Work Phone: Potassium [Moles/Vol] 4.1 mmol/L 3.5-5.1 [facility] Work Phone: Protein [Mass/Vol] 7.6 g/dL 6.4-8.2 [facility] Work Phone: Sodium [Moles/Vol] 139 mmol/L 136-145 [facility] Work Phone: Triglyceride [Mass/Vol] 208 mg/dL [facility] Work Phone: Comment on above: The drugs N-Acetylcy steine and Metamizole may falsely depress this assay.Serum Triglycerides Reference Interval Normal <150 mg/dL Borderline high 150 - 199 mg/dL High 200 - 499 mg/dL Very High > or = 500 mg/dL WBC (Bld) [#/Vol] 4.6 10*3/uL 4.4-11.0 [facility] Work Phone: Blood erythrocytes count (nu mber/volume)on 12-07-2021 RBC (Bld) [#/Vol] 4.48 10*6/uL 4.6-6.2 [facility] Work Phone: Blood hemoglobin measurement (mass/volume)on 12-07-2021 Hemoglobin (Bld) [Mass/Vol] 13.6 g/dL 13.0-16.5 [facility] Work Phone: Blood lymphocytes/100 leukoc yteson 12-07-2021 Lymphocytes/100 WBC (Bld) 28.5 % 19-41 [facility] Work Phone: Blood monocytes/100 leukocyt eson 12-07-2021 Monocytes/100 WBC (Bld) 12.2 % 0-10 [facility] Work Phone: Blood platelet mean volumeon 12-07-2021 Platelet mean volume (Bld) [Entitic vol] 10.7 fL 6.2-12.0 [facility] Work Phone: Determination of erythrocyte mean corpuscular volume (MCV)on 12-07-2021 MCV (RBC) [Entitic vol] 90.8 fL 80-94 [facility] Work Phone: Hematocrit Auto (Bld) [Volum e fraction]on 12-07-2021 Hematocrit (Bld) [Volume fraction] 40.7 % 40-54 [facility] Work Phone: Laboratory - Chemistry and C hemistry - challengeon 12-07-2021 ALP [Catalytic activity/Vol] 77 U/L 45-117 [facility] Work Phone: ALT [Catalytic activity/Vol] 32 U/L 16-61 [facility] Work Phone: CO2 [Moles/Vol] 29.0 mmol/L 21.0-32.0 [facility] Work Phone: Globulin (S) [Mass/Vol] 4.0 g/dL 2.2-4.2 [facility] Work Phone: Urea nitrogen/Creatinine [Mass ratio] 20.2 mg/mg 10-20 [facility] Work Phone: Laboratory - Hematology and Cell countson 12-07-2021 Erythrocyte distribution width (RBC) [Entitic vol] 46.9 fL 35.1-43.9 [facility] Work Phone: Erythrocyte distribution width (RBC) [Ratio] 14.1 % 11.6-14.6 [facility] Work Phone: Immature granulocytes/100 WBC (Bld) 0.200 % 0.0-0.9 [facility] Work Phone: Comment on above: IG% - Immature Granu locytes (promyelocytes, myelocytes and metamyelocytes) > 1% indicates that a LEFT SHIFT is Present. MCH (RBC) [Entitic mass] 30.4 pg 27.0-32.0 [facility] Work Phone: Nucleated RBC/100 WBC (Bld) [Ratio] 0 % 0-5 [facility] Work Phone: MCHC Auto (RBC) [Mass/Vol]on 12-07-2021 MCHC (RBC) [Mass/Vol] 33.4 g/dL 32-36 [facility] Work Phone: No Panel Informationon 12-07 Estimated GFR (MDRD) Amer 86 mL/min >60 [facility] Work Phone: Comment on above: GFR Calc Estimated GFR (MDRD) Non-Af Amer 71 mL/min >60 [facility] Work Phone: Comment on above: Non- GFR Calc Prostate Specific Antigen Total 0.93 ng/mL 0.0-4.0 [facility] Work Phone: Comment on above: This test was perfor med using the TPSA assay method for [facility]. Values obtained with differentassay methods cannot be used interchangably.When changing PSA assays in the course of monitoring apatient, additional sequential testing should be carriedout to confirm baseline values. Platelets bldon 12-07-2021 Platelets (Bld) [#/Vol] 211 10*3/uL 150-450 [facility] Work Phone: Serum or plasma albumin ash urement (mass/volume)on 12-07-2021 Albumin [Mass/Vol] 3.6 g/dL 3.2-5.0 [facility] Work Phone: Serum or plasma albumin/glob ulin mass ratioon 12-07-2021 Albumin/Globulin [Mass ratio] 0.9 {ratio} 0.9-2.4 [facility] Work Phone: Serum or plasma calcium ash urement (mass/volume)on 12-07-2021 Calcium [Mass/Vol] 8.7 mg/dL 8.5-10.1 [facility] Work Phone: Serum or plasma cholesterol in HDL measurement (mass/volume)on 12-07-2021 Cholesterol in HDL [Mass/Vol] 46 mg/dL [facility] Work Phone: Comment on above: The drugs N-Acetylcy steine and Metamizole may falsely depress this assay. Reference Range HDL <40 mg/dL Low HDL Cholesterol HDL >or= 60 mg/dL High HDL Cholesterol Serum or plasma cholesterol in VLDL measurement (mass/volume)on 12-07-2021 Cholesterol in VLDL [Mass/Vol] 42 mg/dL 5-40 [facility] Work Phone: Serum or plasma creatinine m easurement (mass/volume)on 12-07-2021 Creatinine [Mass/Vol] 1.09 mg/dL 0.70-1.30 [facility] Work Phone: Comment on above: The validity of the calculated GFR & GFRAA in patients over 70 years has not been determined. Clinical correlation is essential. Serum or plasma low density lipoprotein (LDL) cholesterol measurement (mass/volume)on 12-07-2021 Cholesterol in LDL [Mass/Vol] 145 mg/dL 0-130 [facility] Work Phone: Serum or plasma urea nitroge n measurement (mass/volume)on 12-07-2021 Urea nitrogen [Mass/Vol] 22 mg/dL 7-18 [facility] Work Phone: Thin prep Papanicolaou smear with manual screeningon 12-07-2021 Thin prep Papanicolaou smear with manual screening 28 U/L 15-37 [facility] Work Phone: Thin prep Papanicolaou smear with manual screening 5 5-15 [facility] Work Phone: Vital Signs Date Time Vital Sign Value Performing Clinician Lizett moreno 06-06-2025 08:02-0400 Body height 190.[address] Lawrence Wilson MD Work Phone: [facility] 06-06-2025 08:02-0400 Body mass index (BMI) [Ratio] 25.3 kg/m2 Dr. Lawrence Wilson MD Work Phone: [facility] 06-06-2025 08:02-0400 Body weight 92.[address] Lawrence Wilson MD Work Phone: [facility] 06-06-2025 08:02-0400 Diastolic blood pressure 71 mm[Hg] Dr. Lawrence Wilson MD Work Phone: [facility] 06-06-2025 08:02-0400 Heart rate 51 /min Dr. Lawrence Wilson MD Work Phone: [facility] 06-06-2025 08:02-0400 Respiratory rate 18 /min Dr. Lawrence Wilson MD Work Phone: [facility] 06-06-2025 08:02-0400 SaO2% (BldA) [Mass fraction] 98 % Dr. Lawrence Wilson MD Work Phone: [facility] 06-06-2025 08:02-0400 Systolic blood pressure 133 mm[Hg] Dr. Lawrence Wilson MD Work Phone: [facility] 05-24-2025 07:20-0400 Body weight 92.[address] Lawrence Wilson MD Work Phone: [facility] 04-26-2025 08:13-0400 Body height 190.[address] Lawrence Wilson MD Work Phone: [facility] 04-26-2025 08:13-0400 Body weight 92.[address] Lawrence Wilson MD Work Phone: 7(653)329-709183 [place] [address] 03-29-2025 08:44-0400 Body height 190.[address] Lawrence Wilson MD Work Phone: 4(201)150-733983 [place] [address] 03-29-2025 08:44-0400 Body mass index (BMI) [Ratio] 25.5 kg/m2 Dr. Lawrence Wilson MD Work Phone: 3(854)007-221283 [place] [address] 03-29-2025 08:44-0400 Body temperature 96.7 [degF] Dr. Lawrence Wilson MD Work Phone: 6(938)325-550383 [place] [address] 03-29-2025 08:44-0400 Body weight 92.[address] Lawrence Wilson MD Work Phone: 1(124)499-000783 [place] [address] 03-29-2025 08:44-0400 Diastolic blood pressure 68 mm[Hg] Dr. Lawrence Wilson MD Work Phone: 8(494)148-829883 [place] [address] 03-29-2025 08:44-0400 Heart rate 55 /min Dr. Lawrence Wilson MD Work Phone: 0(789)351-609583 [place] [address] 03-29-2025 08:44-0400 Respiratory rate 16 /min Dr. Lawrence Wilson MD Work Phone: 9(327)956-620683 [place] [address] 03-29-2025 08:44-0400 SaO2% (BldA) [Mass fraction] 98 % Dr. Lawrence Wilson MD Work Phone: 7(633)556-795783 [place] [address] 03-29-2025 08:44-0400 Systolic blood pressure 114 mm[Hg] Dr. Lawrence Wilson MD Work Phone: 0(307)103-958883 [place] [address] 03-29-2025 07:14-0400 Body weight 92.[address] Lawrence Wilson MD Work Phone: 4(625)680-629583 [place] [address] 03-01-2025 07:35-0400 Body mass index (BMI) [Ratio] 25.3 kg/m2 Dr. Lawrence Wilson MD Work Phone: 1(316)572-174883 [place] [address] 03-01-2025 07:35-0400 Body weight 92.[address] Lawrence Wilson MD Work Phone: [facility] 03-01-2025 07:35-0400 Diastolic blood pressure 70 mm[Hg] Dr. Lawrence Wilson MD Work Phone: [facility] 03-01-2025 07:35-0400 Heart rate 52 /min Dr. Lawrence Wilson MD Work Phone: 2(779)554-349318 [place] [address] 03-01-2025 07:35-0400 Respiratory rate 18 /min Dr. Lawrence Wilson MD Work Phone: 5(075)293-121918 [place] [address] 03-01-2025 07:35-0400 Systolic blood pressure 122 mm[Hg] Dr. Lawrence Wilson MD Work Phone: 6(554)960-486583 [place] [address] 02-27-2025 08:58-0400 Body mass index (BMI) [Ratio] 25.3 kg/m2 Dr. Lawrence Wilson MD Work Phone: 2(814)479-049583 [place] [address] 02-27-2025 08:26-0400 Diastolic blood pressure 62 mm[Hg] Dr. Lawrence Wilson MD Work Phone: 7(298)866-584683 [place] [address] 02-27-2025 08:26-0400 Heart rate 50 /min Dr. Lawrence Wilson MD Work Phone: 3(252)768-120083 [place] [address] 02-27-2025 08:26-0400 SaO2% (BldA) [Mass fraction] 97 % Dr. Lawrecne Wilson MD Work Phone: 2(285)083-853418 [place] [address] 02-27-2025 08:26-0400 Systolic blood pressure 120 mm[Hg] Dr. Lawrence Wilson MD Work Phone: 8(553)677-584918 [place] [address] 02-27-2025 08:14-0400 Body height 190.[address] Lawrence Wilson MD Work Phone: 7(753)303-672783 [place] [address] 02-27-2025 08:14-0400 Body weight 92.[address] Lawrence Wilson MD Work Phone: 6(242)730-194783 [place] [address] 02-20-2025 08:41-0400 Body temperature 98.1 [degF] Dr. Lawrence Wilson MD Work Phone: [facility] 02-20-2025 08:41-0400 Diastolic blood pressure 94 mm[Hg] Dr. Lawrence Wilson MD Work Phone: 2(800)477-597083 [place] [address] 02-20-2025 08:41-0400 Heart rate 51 /min Dr. Lawrence Wilson MD Work Phone: 5(414)643-625783 [place] [address] 02-20-2025 08:41-0400 Respiratory rate 16 /min Dr. Lawrence Wilson MD Work Phone: 3(773)053-932383 [place] [address] 02-20-2025 08:41-0400 SaO2% (BldA) [Mass fraction] 98 % Dr. Lawrence Wilson MD Work Phone: 8(741)134-617583 [place] [address] 02-20-2025 08:41-0400 Systolic blood pressure 129 mm[Hg] Dr. Lawrence Wilson MD Work Phone: 1(719)128-273683 [place] [address] 02-19-2025 07:19-0400 Body height 190.[address] Lawrence Wilson MD Work Phone: 7(670)097-948483 [place] [address] 02-19-2025 07:19-0400 Body weight 92.[address] Lawrence Wilson MD Work Phone: 6(714)968-709183 [place] [address] 02-18-2025 12:09-0400 Body mass index (BMI) [Ratio] 25.3 kg/m2 Dr. Lawrence Wilson MD Work Phone: 3(335)226-980583 [place] [address] 02-05-2025 07:23-0400 Body height 190.[address] Lawrence Wilson MD Work Phone: 7(990)633-927683 [place] [address] 02-05-2025 07:23-0400 Body mass index (BMI) [Ratio] 25.3 kg/m2 Dr. Lawrence Wilson MD Work Phone: 1(023)677-132083 [place] [address] 02-05-2025 07:23-0400 Body weight 92.[address] Lawrence Wilson MD Work Phone: 9(322)292-699383 [place] [address] 02-05-2025 07:23-0400 Diastolic blood pressure 79 mm[Hg] Dr. Lawrence Wilson MD Work Phone: [facility] 02-05-2025 07:23-0400 Respiratory rate 18 /min Dr. Lawrence Wilson MD Work Phone: [facility] 02-05-2025 07:23-0400 Systolic blood pressure 154 mm[Hg] Dr. Lawrence Wilson MD Work Phone: [facility] 12-19-2023 08:58-0500 Body height 190.[address] Lawrence Wilson Work Phone: [facility] 12-19-2023 08:58-0500 Body mass index (BMI) [Ratio] 25.3 kg/m2 Dr. Lawrence Wilson Work Phone: [facility] 12-19-2023 08:58-0500 Body weight 92.[address] Lawrence Wilson Work Phone: [facility] 12-19-2023 08:58-0500 Diastolic blood pressure 79 mm[Hg] Dr. Lawrence Wilson Work Phone: [facility] 12-19-2023 08:58-0500 Heart rate 50 /min Dr. Lawrence Wilson Work Phone: [facility] 12-19-2023 08:58-0500 Respiratory rate 18 /min Dr. Lawrence Wilson Work Phone: [facility] 12-19-2023 08:58-0500 SaO2% (BldA) [Mass fraction] 97 % Dr. Lawrence Wilson Work Phone: [facility] 12-19-2023 08:58-0500 Systolic blood pressure 122 mm[Hg] Dr. Lawrence Wilson Work Phone: [facility] 09-22-2023 09:25-0500 Body height 190.[address] Lawrence Wilson Work Phone: [facility] 09-22-2023 09:25-0500 Body mass index (BMI) [Ratio] 25.5 kg/m2 Dr. aLwrence Wilson Work Phone: [facility] 09-22-2023 09:25-0500 Body temperature 97.9 [degF] Dr. Lawrence Wilson Work Phone: [facility] 09-22-2023 09:25-0500 Body weight 92.[address] Lawrence Wilson Work Phone: [facility] 09-22-2023 09:25-0500 Diastolic blood pressure 77 mm[Hg] Dr. Lawrence Wilson Work Phone: [facility] 09-22-2023 09:25-0500 Heart rate 51 /min Dr. Lawrence Wilson Work Phone: 8(715)513-525599 [address] 09-22-2023 09:25-0500 Respiratory rate 16 /min Dr. Lawrence Wilson Work Phone: 2(677)830-299999 [address] 09-22-2023 09:25-0500 SaO2% (BldA) [Mass fraction] 96 % Dr. Lawrence Wilson Work Phone: [facility] 09-22-2023 09:25-0500 Systolic blood pressure 159 mm[Hg] Dr. Lawrence Wilson Work Phone: [facility] 03-22-2023 09:15-0400 Body height 190.[address] Lawrence Wilson Work Phone: [facility] 03-22-2023 09:13-0400 Body mass index (BMI) [Ratio] 25.2 kg/m2 Dr. Lawrence Wilson Work Phone: [facility] 03-22-2023 09:13-0400 Body temperature 97.2 [degF] Dr. Lawrence Wilson Work Phone: [facility] 03-22-2023 09:13-0400 Body weight 91.[address] Lawrence Wilson Work Phone: [facility] 03-22-2023 09:13-0400 Diastolic blood pressure 75 mm[Hg] Dr. Lawrence Wilson Work Phone: [facility] 03-22-2023 09:13-0400 Heart rate 52 /min Dr. Lawrence Wilson Work Phone: [facility] 03-22-2023 09:13-0400 Respiratory rate 18 /min Dr. Lawrence Wilson Work Phone: [facility] 03-22-2023 09:13-0400 SaO2% (BldA) [Mass fraction] 97 % Dr. Lawrence Wilson Work Phone: [facility] 03-22-2023 09:13-0400 Systolic blood pressure 158 mm[Hg] Dr. Lawrence Wilson Work Phone: [facility] 03-15-2023 09:19-0400 Body height 190.[address] Lawrence Wilson Work Phone: [facility] 03-15-2023 09:19-0400 Body mass index (BMI) [Ratio] 25.1 kg/m2 Dr. Lawrence Wilson Work Phone: [facility] 03-15-2023 09:19-0400 Body weight 91.[address] Lawrence Wilson Work Phone: [facility] 03-15-2023 09:19-0400 Diastolic blood pressure 71 mm[Hg] Dr. Lawrence Wilson Work Phone: [facility] 03-15-2023 09:19-0400 Heart rate 57 /min Dr. Lawrence Wilson Work Phone: [facility] 03-15-2023 09:19-0400 Respiratory rate 18 /min Dr. Lawrence Wilson Work Phone: [facility] 03-15-2023 09:19-0400 SaO2% (BldA) [Mass fraction] 10 % Dr. Lawrence Wilson Work Phone: [facility] 03-15-2023 09:19-0400 Systolic blood pressure 129 mm[Hg] Dr. Lawrence Wilson Work Phone: [facility] 12-06-2022 09:11-0500 Body height 190.[address] Lawrence Wilson Work Phone: [facility] 12-06-2022 09:08-0500 Body mass index (BMI) [Ratio] 25.4 kg/m2 Dr. Lawrence Wilson Work Phone: [facility] 12-06-2022 09:08-0500 Body temperature 97.5 [degF] Dr. Lawrence Wilson Work Phone: [facility] 12-06-2022 09:08-0500 Body weight 92.[address] Lawrence Wilson Work Phone: [facility] 12-06-2022 09:08-0500 Diastolic blood pressure 74 mm[Hg] Dr. Lawrence Wilson Work Phone: [facility] 12-06-2022 09:08-0500 Heart rate 54 /min Dr. Lawrence Wilson Work Phone: [facility] 12-06-2022 09:08-0500 Respiratory rate 16 /min Dr. Lawrence Wilson Work Phone: [facility] 12-06-2022 09:08-0500 SaO2% (BldA) [Mass fraction] 98 % Dr. Lawrence Wilson Work Phone: [facility] 12-06-2022 09:08-0500 Systolic blood pressure 146 mm[Hg] Dr. Lawrence Wilson Work Phone: [facility] 08-26-2022 08:27-0400 Body height 190.[address] Lawrence Wilson Work Phone: [facility] Work Phone: 08-26-2022 08:27-0400 Body mass index (BMI) [Ratio] 24.7 kg/m2 Dr. Lawrence Wilson Work Phone: [facility] 08-26-2022 08:27-0400 Body weight 89.[address] Lawrence Wilson Work Phone: [facility] 08-26-2022 08:27-0400 Diastolic blood pressure 63 mm[Hg] Dr. Lawrence Wilson Work Phone: [facility] 08-26-2022 08:27-0400 Heart rate 55 /min Dr. Lawrence Wilson Work Phone: [facility] 08-26-2022 08:27-0400 Respiratory rate 18 /min Dr. Lawrence Wilson Work Phone: [facility] 08-26-2022 08:27-0400 SaO2% (BldA) [Mass fraction] 99 % Dr. Lawrence Wilson Work Phone: [facility] 08-26-2022 08:27-0400 Systolic blood pressure 133 mm[Hg] Dr. Lawrence Wilson Work Phone: [facility] 08-05-2022 09:06-0400 Body height 190.[address] Lawrence Wilson Work Phone: [facility] Work Phone: 08-05-2022 09:03-0400 Body mass index (BMI) [Ratio] 24.5 kg/m2 Dr. Lawrence Wilson Work Phone: [facility] Work Phone: 08-05-2022 09:03-0400 Body temperature 97 [degF] Dr. Lawrence Wilson Work Phone: [facility] Work Phone: 08-05-2022 09:03-0400 Body weight 89.[address] Lawrence Wilson Work Phone: [facility] Work Phone: 08-05-2022 09:03-0400 Diastolic blood pressure 71 mm[Hg] Dr. Lawrence Wilson Work Phone: [facility] Work Phone: 08-05-2022 09:03-0400 Heart rate 46 /min Dr. Lawrence Wilson Work Phone: [facility] Work Phone: 08-05-2022 09:03-0400 Respiratory rate 16 /min Dr. Lawrence Wilson Work Phone: [facility] Work Phone: 08-05-2022 09:03-0400 SaO2% (BldA) [Mass fraction] 98 % Dr. Lawrence Wilson Work Phone: [facility] Work Phone: 08-05-2022 09:03-0400 Systolic blood pressure 160 mm[Hg] Dr. Lawrence Wilson Work Phone: [facility] Work Phone: 03-04-2022 15:48-0400 Body height 190.[address] Lawrence Wilson Work Phone: [facility] Work Phone: 03-04-2022 15:48-0400 Body mass index (BMI) [Ratio] 25.7 kg/m2 Dr. Lawrence Wilson Work Phone: [facility] Work Phone: 03-04-2022 15:48-0400 Body weight 93.[address] Lawrence Wilson Work Phone: [facility] Work Phone: 03-04-2022 15:48-0400 Diastolic blood pressure 60 mm[Hg] Dr. Lawrence Wilson Work Phone: [facility] Work Phone: 03-04-2022 15:48-0400 Heart rate 56 /min Dr. Lawrence Wilson Work Phone: [facility] Work Phone: 03-04-2022 15:48-0400 Respiratory rate 16 /min Dr. Lawrence Wilson Work Phone: [facility] Work Phone: 03-04-2022 15:48-0400 Systolic blood pressure 140 mm[Hg] Dr. Lawrence Wilson Work Phone: [facility] Work Phone: 02-01-2022 08:09-0400 Body mass index (BMI) [Ratio] 25.8 kg/m2 Dr. Lawrence Wilson Work Phone: [facility] Work Phone: 02-01-2022 08:09-0400 Body temperature 97.1 [degF] Dr. Lawrence Wilson Work Phone: [facility] Work Phone: 02-01-2022 08:09-0400 Body weight 93.[address] Lawrence Wilson Work Phone: [facility] Work Phone: 02-01-2022 08:09-0400 Diastolic blood pressure 69 mm[Hg] Dr. Lawrence Wilson Work Phone: [facility] Work Phone: 02-01-2022 08:09-0400 Heart rate 60 /min Dr. Lawrence Wilson Work Phone: [facility] Work Phone: 02-01-2022 08:09-0400 Respiratory rate 14 /min Dr. Lawrence Wilson Work Phone: [facility] Work Phone: 02-01-2022 08:09-0400 SaO2% (BldA) [Mass fraction] 100 % Dr. Lawrence Wilson Work Phone: [facility] Work Phone: 02-01-2022 08:09-0400 Systolic blood pressure 131 mm[Hg] Dr. Lawrence Wilson Work Phone: [facility] Work Phone: Encounters Encounter Date Encounter Type Care Provider Facility Start: 08-19-2025 End: 08-19-2025 ambulatory Lawrence Wilson Facility:[facility] Start: 07-19-2025 End: 07-19-[address] Lawrence Wilson MD Work Phone: -Ultrasound [facility] Start: 07-19-2025 End: 07-19-[address] Lawrence Wilson MD -Ultrasound [facility] Work Phone: Start: 07-19-2025 End: 07-19-2025 ambulatory Lawrence Wilson Facility:[facility] Start: 07-08-2025 End: 07-08-[address] Lawrence Wilson MD Work Phone: -[facility] [place] Start: 07-08-2025 End: 07-08-[address] Lawrence Wilson MD -[facility] [place] Work Phone: Start: 07-08-2025 End: 07-08-2025 ambulatory Lawrence Wilson Facility:[facility] Start: 06-24-2025 ambulatory Lawrence Wilson [facility] y:[facility] Start: 06-06-2025 End: 06-06-2025 Patient encounter procedure Nessa GABRIEL -[facility] Work Phone: Start: 06-06-2025 End: 06-06-[address] Lawrence Wilson MD Work Phone: -[facility] Start: 06-05-2025 Non-patient / Non-visit Dr. Jony benavides MD -[facility] Start: 06-05-2025 End: 06-05-[address] Lawrence Wilson MD Work Phone: -Cardiovascular Services Start: 06-05-2025 End: 06-05-[address] Lawrence Wilson MD -Cardiovascular Services Work Phone: Start: 06-05-2025 End: 06-05-2025 ambulatory Lawrence Wilson Facility:[facility] Start: 05-31-2025 End: 06-13-[address] Lawrence Wilson MD Work Phone: -Cardiac Rehab Start: 05-31-2025 End: 06-13-[address] Maged Watts MD -Cardiac Rehab Work Phone: Start: 05-31-[address] Maged byrne MD -Cardiac Rehab Work Phone: Start: 05-13-2025 End: 05-13-[address] Lawrence Wilson MD Work Phone: -Cardiac Rehab Start: 05-13-2025 End: 05-13-[address] Maged Watts MD -Cardiac Rehab Work Phone: Start: 04-12-2025 End: 04-13-[address] Lawrence Wilson MD Work Phone: [facility] Work Phone: Start: 04-12-2025 End: 04-13-[address] Maged Watts MD -Cardiac Rehab Work Phone: Start: 03-29-2025 End: 03-29-[address] Tucker Perry DO [facility] Work Phone: Start: 03-29-2025 End: 03-29-[address] Lawrence Wilson MD Work Phone: [facility] Work Phone: Start: 03-29-[address] Maged byrne MD -Cardiac Rehab Work Phone: Start: 03-27-2025 End: 03-27-[address] Lawrence Wilson MD Work Phone: [facility] Work Phone: Start: 03-27-2025 End: 03-27-[address] Tucker Perry DO [facility] Work Phone: Start: 03-27-2025 End: 03-27-2025 ambulatory Tucker Whitehead:[facility] Start: 03-13-2025 End: 03-13-2025 ambulatory Maged [facility] Facility:[facility] Start: 03-13-2025 End: 03-13-[address] Maged Watts MD -Cardiac Rehab Work Phone: Start: 03-11-[address] Maged byrne MD -Cardiac Rehab Work Phone: Start: 03-07-2025 End: 03-07-[address] Lawrence Wilson MD Work Phone: [facility] Work Phone: Start: 03-07-2025 End: 03-07-[address] Lawrence Wilson MD -Laboratory, [facility] Start: 03-07-2025 End: 03-07-2025 ambulatory Lawrence Wilson Facility:[facility] Start: 03-01-2025 End: 03-01-2025 Patient encounter procedure Nessa Melissa COMMUNICATIONS TECHNOLOGIST- -[facility] Work Phone: Start: 03-01-2025 End: 03-01-2025 ambulatory Nessa Melissa NP [facility] Start: 02-28-2025 Encounter for genera l adult medical examination without abnormal findings Maged [facility] Start: 02-27-2025 End: 02-27-[address] Lawrence Wilson MD Work Phone: [facility] Work Phone: Start: 02-27-2025 End: 02-27-[address] Maged Watts MD -Cardiac Rehab Work Phone: Start: 02-27-2025 End: 02-27-2025 ambulatory Maged [facility] Facility:[facility] Start: 02-22-2025 Non-patient / Non-visit Dr. Maged rodgers MD -[facility] Start: 02-22-2025 ambulatory Maged Watts Facility:[facility] Start: 02-20-2025 Non-patient / [facility] Start: 02-19-2025 End: 02-20-2025 ambulatory Michael Freeman Facility:[facility] Start: 02-19-2025 End: 02-20-2025 Evaluation and management of inpatient Dr. Michael Freeman MD -Progressive Care Unit Work Phone: Start: 02-19-2025 End: 02-20-[address] Lawrence Wilson MD Work Phone: [facility] Work Phone: Start: 02-06-2025 End: 02-06-[address] Lawrence Wilson MD Work Phone: [facility] Work Phone: Start: 02-06-2025 End: 02-06-2025 [facility] Start: 02-05-2025 End: 02-05-2025 Patient encounter procedure Mai GROSSMAN -[facility] Work Phone: Start: 02-05-2025 End: 02-06-2025 ambulatory Mai GROSSMAN Facility:[facility] Start: 02-01-2025 ambulatory Lawrence Antonio y:[facility] Start: 02-01-2025 Non-patient / Non-visit Dr. Montserrat [facility] Start: 02-01-2025 End: 02-01-[address] Lawrence Wilson MD Work Phone: [facility] Work Phone: Start: 02-01-2025 End: 02-01-[address] Lawrence Wilson MD -Cardiovascular Services Work Phone: Start: 02-01-2025 End: 02-01-2025 ambulatory Lawrence Wilson Facility:[facility] Start: 01-02-2025 End: 01-02-[address] [facility] Start: 01-02-2025 End: 01-02-2025 ambulatory Lawrence Wilson Facility:[facility] Start: 09-28-2024 End: 09-28-2024 ambulatory Lawrence Wilson [place] Start: 09-24-2024 End: 09-24-2024 ambulatory Lawrence Wilson Facility:[facility] Start: 01-25-2024 Non-patient / Non-visit Dr. Leah Wilson Work Phone: [facility] Start: 01-25-2024 End: 01-25-[address] Lawrence Wilsno Work Phone: [facility] Work Phone: Start: 01-25-2024 End: 01-25-[address] [facility] Start: 01-12-2024 End: 01-12-[address] Lawrence Wilson Work Phone: [facility] Work Phone: Start: 01-12-2024 End: 01-12-[address] Lawrence Wilson Work Phone: [facility] Start: 12-19-2023 End: 12-19-[address] Lawrence Wilson Work Phone: [facility] Work Phone: Start: 12-02-2023 End: 12-02-[address] Lawrence Wilson Work Phone: [facility] Work Phone: Start: 09-26-2023 End: 09-26-[address] Lawrence Wilson Work Phone: [facility] Work Phone: Start: 09-26-2023 End: 09-26-[address] Lawrence Wilson Work Phone: [facility] Work Phone: Start: 09-22-2023 End: 09-22-[address] Lawrence Wilson Work Phone: [facility] Work Phone: Start: 09-19-2023 End: 09-19-[address] Lawrence Wilson Work Phone: [facility] Work Phone: Start: 09-19-2023 End: 09-19-[address] Lawrence Wilson Work Phone: [facility] Work Phone: Start: 03-23-2023 Non-patient / Non-visit Dr. Leah Wilson Work Phone: [facility] Start: 03-23-2023 End: 03-23-[address] Lawrence Wilson Work Phone: [facility] Work Phone: Start: 03-23-2023 End: 03-23-[address] Lawrence Wilson Work Phone: [facility]-Cardiovascular Services Start: 03-22-2023 End: 03-22-[address] Lawrence Wilson Work Phone: [facility] Start: 03-15-2023 End: 03-15-[address] Lawrence Wilson Work Phone: [facility] Start: 03-11-2023 End: 03-11-[address] Lawrence Wilson Work Phone: [facility] Work Phone: Start: 03-11-2023 End: 03-11-[address] Lawrence Wilson Work Phone: [facility] Start: 12-06-2022 End: 12-06-[address] Lawrence Wilson Work Phone: [facility] Start: 12-03-2022 End: 12-03-[address] Lawrence Wilson Work Phone: [facility] Work Phone: Start: 12-03-2022 End: 12-03-[address] Lawrence Wilson Work Phone: [facility] Start: 10-08-2022 End: 10-08-[address] Lawrence Wilson Work Phone: [facility] Work Phone: Start: 10-08-2022 End: 10-08-[address] Lawrence Wilson Work Phone: [facility] Start: 08-26-2022 End: 08-26-[address] Lawrence Wilson Work Phone: [facility] Start: 08-05-2022 End: 08-05-[address] Lawrence Wilson Work Phone: [facility] Start: 08-02-2022 End: 08-02-[address] Lawrence Wilson Work Phone: [facility] Work Phone: Start: 08-02-2022 End: 08-02-[address] Lawrence Wilson Work Phone: [facility] Start: 06-08-2022 End: 06-08-[address] Lawrence Wilson Work Phone: [facility] Start: 03-22-2022 Non-patient / Non-visit Dr. Leah Wilson Work Phone: [facility] Start: 03-22-2022 End: 03-22-[address] [facility] Start: 03-18-2022 End: 03-18-[address] Lawrence [facility] Start: 03-10-2022 End: 03-10-[address] Lawrence Wilson Work Phone: [facility] Start: 03-04-2022 End: 03-04-[address] Lawrence Wilson Work Phone: [facility] Start: 02-01-2022 End: 02-01-[address] Lawrence Wilson Work Phone: [facility] Start: 01-04-[address] [facility] Start: 12-21-2021 End: 12-21-[address] Lawrence Wilson [facility] Start: 12-07-2021 End: 12-07-[address] Lawrence Wilson Work Phone: [facility] Procedures Date Procedure Procedure Detail Performing Clinician Start: 07-19-[address] Lawrence Wilson MD Work Phone: Start: 07-08-2025 Assay of prostate sp ecific antigen total [...] be performed to confirm baseline values. Start: 07-08-2025 Total iron binding c apacity measurement Dr. Lawrence Wilson MD Work Phone: Start: 03-27-2025 Assay of prostate sp ecific [...] GFR Calc Start: 01-02-2025 Total iron binding c apacity measurement Dr. Lawrence Wilson MD Work Phone: [...] Activity Detail Author Start: 02-25-2025 Patient referral [facility] Work Phone: Start: 02-20-2025 Patient discharge [facility] Start: 02-19-2025 Provision of activity privileges [facility] Start: 02-19-2025 End: 02-19-2025 Admission procedure [facility] Start: 02-19-2025 Assessment of risk o f venous thromboembolism [facility] Start: 02-19-2025 Insertion of cathete r into peripheral vein [facility] Start: 02-19-2025 Measuring intake and output [facility] Start: 02-19-2025 Providing care accor ding to standard [facility] Start: 02-19-2025 End: 02-19-2025 [facility] Start: 02-19-2025 Following clinical p athway protocol [facility] Start: 02-19-2025 Ambulation without limitation [facility] Start: 02-19-2025 Cardiac monitoring [facility] Start: 02-19-2025 Cardiac rehabilitation - phase 1 [facility] Start: 02-19-2025 Cardiac rehabilitation - phase 2 [facility] Start: 02-19-2025 Notification of physician [facility] Start: 02-19-2025 Oxygen therapy [facility] Start: 02-19-2025 Patient discharge [facility] Start: 02-19-2025 Systemic arterial pr essure monitoring [facility] Start: 02-19-2025 Taking patient vital signs [facility] Start: 02-19-2025 Vascular disease risk assessment [facility] Start: 02-19-2025 Vital signs measurements [facility] Start: 02-19-2025 End: 02-19-2025 [facility] Start: 02-19-2025 [facility] Catheterization of left heart [facility] Patient referral [facility] Work Phone: Prostate specific an tigen measurement [facility] Work Phone: Prostate specific an tigen measurement [facility] Prostate specific an tigen measurement [facility] Radionuclide imaging of perfusion of myocardium under exercise stress [facility] Immunizations Immunization Date Immunization Notes Care Provider Fa cility 08-11-2021 influenza, injectabl e, quadrivalent, preservative free Dr. Lawrence Wilson Work Phone: [facility] 08-11-2021 influenza, seasonal, injectable Dr. Lawrence Wilson Work Phone: [facility] Payers Date Payer Category Payer Self-pay [id number] 2021 Unknown [id number] 2016 Medicare [id number] Unknown [id number] 2.16.8 40.1.307069.3.579.2.462 Unknown [id number] 2.16.8 40.1.230933.3.579.2.462 Unknown [id number] 2.16.8 40.1.132209.3.579.2.462 Unknown [id number] 2.16.8 40.1.456058.3.579.2.462 Unknown [id number] 2.16.8 40.1.771205.3.579.2.462 Unknown [id number] 2.16.8 40.1.522337.3.579.2.462 Unknown [id number] 2.16.8 40.1.337419.3.579.2.462 Unknown [id number] 2.16.8 40.1.658693.3.579.2.462 Unknown [id number] 2.16.8 40.1.882134.3.579.2.462 Unknown [id number] 2.16.8 40.1.951178.3.579.2.462 Unknown [id number] 2.16.8 40.1.277628.3.579.2.462 Unknown [id number] 2.16.8 40.1.163089.3.579.2.462 Unknown [id number] 2.16.8 40.1.973883.3.579.2.462 Unknown [id number] 2.16.8 40.1.036249.3.579.2.462 Unknown [id number] 2.16.8 40.1.225129.3.579.2.462 Unknown [id number] 2.16.8 40.1.359745.3.579.2.462 Unknown [id number] 2.16.8 40.1.477998.3.579.2.462 Unknown [id number] 2.16.8 40.1.338214.3.579.2.462 Unknown [id number] 2.16.8 40.1.257883.3.579.2.462 Unknown [id number] 2.16.8 40.1.197890.3.579.2.462 Unknown [id number] 2.16.8 40.1.597556.3.579.2.462 Unknown [id number] 2.16.8 40.1.591990.3.579.2.462 Unknown [id number] 2.16.8 40.1.109161.3.579.2.462 Unknown [id number] 2.16.8 40.1.234237.3.579.2.462 Unknown [id number] 2.16.8 40.1.622307.3.579.2.462 Unknown [id number] 2.16.8 40.1.834491.3.579.2.462 Unknown [id number] 2.16.8 40.1.831582.3.579.2.462 Social History Date Type Detail Facility Start: 03-04-2022 End: 12-19-2023 Tobacco smoking status NHIS Unknown if ever smoked [facility] Start: 1950 Sex Assigned At Male [facility] Start: 12-19-2023 End: 02-27-2025 Tobacco smoking status NHIS Never smoked tobacco (finding) [facility] Start: 02-08-2025 End: 03-12-2025 Sex Male (finding) [facility] Sex Male [facility] Medical Equipment Procedure Code Equipment Code Equipment Origin al Text Equipment Identifier Dates ([id number]) Drug-eluting coronary artery stent, bioabsorbable-polyme r-coated ()[id number] FDA Start: 08-11-2021 Drug-eluting coronary artery stent, lov-qnskgfbawzdie-ky lymer-coated ()[id number] FDA Start: 02-19-2025 Goals Date Patient Goal Desired Activity /State Functional Status Date Assessment Result Facility 02-19-2025 Functional status Ambulates [facility] Work Phone: Mental Status Date Assessment Result Facility 02-19-2025 Cognitive function Voice/Name [facility] Work Phone: Clinical Notes 07-15-2021 to 07-20-2025 Note Date & Type Note Facility 07-20-2025 Radiology Diagnostic study note [facility] Imaging Services [address] [place] [address] Ext Non Vasc Limited/Soft Tiss MR#: [id number] Acct: [id number] Name: ABRAHAN CALVERT Rep #: [id number] : 1950 M 74 From: George Elliott MD PCP: Dr. Lawrence Wilson MD Status: RE G CLI Study:Ext Non Vasc Limited/Soft Tiss Date of Exam: 07/19/25 Exam# [id number] Ordering Dr: Lawrence Wilson MD PROCEDURE: EXT NON VASC LIMITED/SOFT TISS 07/19/2025 REASON FOR EXAM: LOCALIZED SWELLING, MASS AND LUMP, RIGHT LOWER LIMB TECHNIQUE: Procedure Code: USEXTSOFTLIM Modality: US Procedure: EXT NON VASC LIMITED/SOFT TISS COMPARISON: None. FINDINGS: Edematous tissue with some anechoic areas seen at the area of palpable lump. The area measures 11.6 x 4.9 x 1.2 cm in total. US/Ext Non Vasc Limited/Soft Tiss IMPRESSION: Appearance consistent with a contusion with small areas of hemorrhage. Reading Location: [id number] CC: Dr. Lawrence Wilson MD ~ Adjutant General: Signed [facility] Work Phone: 06-06-2025 Evaluation note Diagnosis Onset Date Resolution Essential hypertension acute June 06, 2025 7:51am Mixed hyperlipidemia acute June 06, 2025 7:51am Presence of stent in coronary artery March 25, 2025 acute June 06, 2025 7:51am [facility] Work Phone: 1(863) 597-800604-09-2025 Consult note [facility] Medical Records Department [address] [place] [address] Counseling Note - Pharmacy 02/20/25 1050 MR#: [id number] Acct: [id number] Name: ABRAHAN CALVERT Rep #:[id number] : 1950 74 From: Es Gavin PCP: Dr. Lawrence Wilson MD Status:AD M ANGELA Y Location: [place] [id number] Service has performed discharge medication [...] PO DAILY #90 tabs 02/20/25 02/20/25 1050 Date _ Es Gavin Cosigner Signature (if applicable): Date CC: ~ Signed [facility]04-09-2025 Discharge summary Author Michael Freeman [facility] Note Date/Time February 20, 2025 7:41 am [facility] Medical Records Department [address] [place] [address] Instructions for Home/Discharge Instructions 02/20/25 0740 MR#: [id number] Acct: [id number] Name: ABRAHAN CALVERT Rep #:[id number] : 1950 74 From: Michael Freeman [...] occur.If this happens, a large, firm area goose egg under the skin will appear. If any [...] CC: Dr. Lawrence Wilson MD ~ Signed [facility] Work Phone: 1(705) 944-157404-09-2025 Progress note Author Michael Freeman [facility] Note Date/Time February 20, 2025 7:38 am [facility] Medical Records Department [address] [place] [address] Progress Note - Cardiology 02/20/25735 MR#: [id number] Acct: [id number] Name: ABRAHAN CALVERT Rep #:[id number] : 1950 74 From: Michael Freeman MD PCP: Dr. Lawrence Wilson MD Status:AD M [facility] Location: [place] [address] Subjective Subjective Patient seen and evaluated. No [...] Cosigner Signature (if applicable): CC: ~ Signed [facility] Work Phone: 1(989) 536-862604-09-2025 Discharge summary [facility] Medical Records Department [address] [place] [address] Instructions for Home/Discharge Instructions 02/20/25 0740 MR#: [id number] Acct: [id number] Name: ABRAHAN CALVERT Rep #:[id number] : 1950 74 From: Michael Freeman [...] occur.If this happens, a large, firm area goose egg under the skin will appear. If any of these occur, lie down as flat as you can and have someone apply firm pressure to the cath site with a gauze pad or a clean washcloth for 10-15 minutes. Call 911 [facility] Follow Up Care When: Pacer clinic [...] can be placed): Home, Self Care 02/20/25 0741Cyrichard Freeman MD CC: Dr. Lawrecne Wilson MD ~ Signed [facility]04-09-2025 Progress note [facility] Medical Records Department [address] [place] [address] Progress Note - Cardiology 02/20/25 0736 MR#: [id number] Acct: [id number] Name: ABRAHAN CALVERT Rep #:[id number] : 1950 74 From: Michael Freeman MD PCP: Dr. Lawrence Wilson MD Status:AD M ANGELA Location: [place] [address] Subjective Subjective Patient seen and evaluated. No [...] Cosigner Signature (if applicable): CC: ~ Signed [facility]04-08-2025 Evaluation note* Diagnosis Onset Date Resolution Status Admit Date CAD (coronary artery disease) acute February 19, 2025 3:36pm Essential hypertension acute Ap ril 2024 3:36pm Essential hypertension acute Ap ril 2024 9:13am Mixed hyperlipidemia acute Apri l 2024 9:13am Presence of stent in coronar y artery March 25, 2025 acute March 01, 2025 9:13am History of prostate cancer February 19, 2025 acut e March 29, 2025 8:37am Essential hypertension acute Ju ly 2024 7:51am Mixed hyperlipidemia acute June 06, 2025 7:51am Presence of stent in coronar y artery March 25, 2025 acute June 06, 2025 7:51am [facility] Work Phone: 1(963) 671-467104-08-2025 Evaluation note* Diagnosis Onset Date Resolution Status Admit Date History of prostate cancer February 19, 2025 acut e March 29, 2025 8:37am Essential hypertension acute Ju ly 2024 7:51am Mixed hyperlipidemia acute June 06, 2025 7:51am Presence of stent in coronar y artery March 25, 2025 acute June 06, 2025 7:51am [facility] Work Phone: 1(851) 855-452704-08-2025 Study report [facility] Cardiac Rehab [address] [place] [address] CR: Phase I Education Summary MR#: [id number] Acct: [id number] Name: ABRAHAN CALVERT Rep #:[id number] : 1950 74 From: Oren Sultana PCP: Dr. Lawrence Wilson MD DOS: 07/08 General Education Discussed with Patient CAD and cardiac anatomy and function:: Patient communicates acknowledgment and Needs reinforcement Explanation of diagnoses and procedures:: Patient communicates acknowledgment and Needs reinforcement Sign/Symptoms of AK:: Patient communicates acknowledgment and Needs reinforcement Antiplatelet [...] protocol. Cosigner Signature: Date CC: ~ Signed [facility]03-27-2025 Radiology Diagnostic study note [facility] Imaging Services [address] [place], [place] [address] Chest PA and Lateral MR#: [id number] Acct: [id number] Name: ABRAHAN CALVERT Rep #: [id number] : 1950 M 74 From: Giig Barclay MD PCP: Dr. Lawrence Wilson MD Status: BRYON Hernandez CLJamel Study:Chest PA and Lateral Date of Exam: 02/06/25 Exam# [id number] Ordering Dr: Mai Olivarez PA PA EXAM: X-ray chest PA and lateral [...] No evidence of acute disease. Reading Location: [id number] CC: Dr. Lawrence Wilson MD; NGOC Li ~ Adjutant General: Signed [facility]03-25-2025 Evaluation note* Diagnosis Onset Date Resolution Status Admit Date Abnormal stress test acute Andrew h 2024 10:44am Chest pain acute February 05 10:44am Essential hypertension acute [facility] 2024 10:44am Mixed hyperlipidemia acute [facility] 2024 10:44am Presence of stent in coronar y artery July, acute February 05, 2025 10:44am Shortness of breath acute February 05, 2025 10:44am [facility] Work Phone: 1(751) 505-239803-25-2025 Evaluation note* Diagnosis Onset Date Resolution Status Admit Date Abnormal stress test acute Andrew h 2024 10:44am Chest pain acute February 05 10:44am Essential hypertension acute [facility] 2024 10:44am Mixed hyperlipidemia acute [facility] 2024 10:44am Presence of stent in coronar y artery July,February 05, 2025 10:44am Shortness of breath acute February 05, 2025 10:44am CAD (coronary artery disease) acute February 19, 2025 3:36pm Essential hypertension acute 2024 3:36pm [facility] Work Phone: 1(475) 289-447403-25-2025 Evaluation note* Diagnosis Onset Date Resolution Status Admit Date Abnormal stress test acute Andrew h 2024 10:44am Chest pain acute February 05 10:44am Essential hypertension acute [facility] 2024 10:44am Mixed hyperlipidemia acute Andrew h [...] artery July, acute March 01, 2025 9:13am [facility] Work Phone: 1(853) 274-173803-25-2025 Evaluation note* Diagnosis Onset Date Resolution Status [...] 25, 2025 acute March 01, 2025 9:13am [facility] Work Phone: 1(355) 124-555703-25-2025 Evaluation note* Diagnosis Onset Date Resolution Status [...] 2025 acut e March 29, 2025 8:37am [facility] Work Phone: 1(876) 697-799509-01-2021 Evaluation note* Diagnosis Onset Date Resolution Status History of prostate cancer a cute Atherosclerotic heart diseas e of [place] coronary artery without angina pectoris acute Mixed hyperlipidemia acute Presence of stent in coronary artery July, acute [facility] Work Phone: 1(931) 779-915409-01-2021 Evaluation note* Diagnosis Onset Date Resolution Status Atherosclerotic heart diseas e of [place] coronary artery without angina pectoris acute Mixed hyperlipidemia acute Presence of stent in coronary artery July, acute History of prostate cancer a [facility] Work Phone: 1(906) 318-923309-01-2021 Evaluation note* Diagnosis Onset Date Resolution Status History of prostate cancer a cute Mixed hyperlipidemia acute Presence of stent in coronary artery July, acute [facility] Work Phone: 1(120) 151-476409-01-2021 Evaluation note* Diagnosis Onset Date Resolution Status History of prostate cancer a cute Mixed hyperlipidemia acute Presence of stent in coronary artery July, acute History of prostate cancer a [facility] Work Phone: 1(482) 409-463909-01-2021 Evaluation note* Diagnosis Onset Date Resolution Status Mixed hyperlipidemia acute Presence of stent in coronary artery July, [facility] Work Phone: Consult note Author Es Gavin [facility] Note Date/Time February 20, 2025 10:5 0am [facility] Medical Records Department [address] [place] [id number] Counseling Note - Pharmacy 02/20/25 1050 MR#: [id number] Acct: [id number] Name: ABRAHAN CALVERT Rep #:[id number] : 1950 74 From: Es Gavin PCP: Dr. Lawrence Wilson MD Status:RADHA Garcia Location: [place] [address] Pharmacy [facility] Pharmacy Service has performed discharge medication [...] Signature (if applicable): Date CC: ~ Signed [facility] Work Phone: Evaluation note* Diagnosis Onset Date Resolution Status [facility] Atherosclerotic heart diseas e of [place] coronary artery without angina pectoris acute Bilateral carotid artery disease acute Dizziness acute Mixed hyperlipidemia acute Presence of stent in coronary artery July, acute [facility] Work Phone: Evaluation note* Diagnosis Onset Date Resolution Status History of prostate cancer a cute [facility] Work Phone: Reason for referral (narrative)No reason for referral [facility] Work Phone: Chief Complaint and Reason for Visit Chief Complaint CAROTID STENOSIS TRANSFER FROM DR GARCIA/ PROSTATE CA FU PALPITATIONS Reason for Visit History of prostate cancer Atherosclerotic heart disease of [place] coronary artery without angina pectoris Bilateral carotid artery disease Dizziness Mixed hyperlipidemia Presence of stent in coronary artery Chief Complaint CAROTID STENOSIS TRANSFER FROM DR GARCIA/ PROSTATE TERI FU PALPITATIONS DIZZINESS AND GIDDINESS OCCLUSION AND STENOSIS OF BILATERAL CAROTID ARTERI Reason for Visit History of prostate cancer Atherosclerotic heart disease of [place] coronary artery without angina pectoris Bilateral carotid artery disease Dizziness Mixed hyperlipidemia Presence of stent in coronary artery Chief Complaint EORDER FOLLOWUP PROSTATE Reason for Visit History of prostate cancer Chief Complaint EORDER FOLLOWUP PROSTATE 6 M FU Reason for Visit History of prostate cancer Atherosclerotic heart disease of [place] coronary artery without angina pectoris Mixed hyperlipidemia Presence of stent in coronary artery Chief Complaint 6 M FU EORDER 4 month f/u Reason for Visit Atherosclerotic hear t disease of [place] coronary artery without angina pectoris Mixed hyperlipidemia [...] :44am Presence of stent in coronary artery [facility] 2024 10:44am Shortness of breath February [...] :44am Presence of stent in coronary artery [facility] 2024 10:44am Shortness of breath February [...] :44am Presence of stent in coronary artery [facility] 2024 10:44am Shortness of breath February 05, 2025 10: 44am CAD (coronary artery disease) February 19, 2025 3:36pm Essential hypertension February 19, 2025 3 :36pm Essential hypertension March 01, 2025 9:13am Mixed hyperlipidemia March 01, 2025 9: 13am Presence of stent in coronary artery [facility] 2024 9:13am Chief Complaint Admit Date SOB [...] Presence of stent in coronary artery Apr il 2024 9:13am History of prostate cancer March [...] with stenting May 13, 2025 8:00 am Chief Complaint Admit Date SOB- EORDERS LAB AND XRAY February 06 [...] with stenting May 13, 2025 8:00 am PCI with stenting May 31, 2025 8:00 am RT LEG SWELLING AND PAIN June 05, 2025 1:45pm 3 M FU June 06, 2025 7:51 am Reason for Visit Admit Date CAD (coronary artery disease) February 19, 2025 3:36pm Essential hypertension February 19, 2025 3 :36pm Essential hypertension March 01, 2025 9:13am Mixed hyperlipidemia March 01, 2025 9: 13am Presence of stent in coronary artery Feb 9:13am History of prostate cancer March 29 8:37am Essential hypertension June 06, 2025 7 :51am Mixed hyperlipidemia June 06, 2025 7:5 1am Presence of stent in coronary artery Yakov 2024 7:51am Chief Complaint Admit Date ABN STRESS TEST, CP February 19, 2025 [...] with stenting May 13, 2025 8:00 am PCI with stenting May 31, 2025 8:00 am RT LEG SWELLING AND PAIN June 05, 2025 1:45pm 3 M FU June 06, 2025 7:51 am Chief Complaint Admit Date PCI with stenting March 13, 2025 8:0 0am EORDER- PSA March 27, 2025 10:03 am 6 MONTH PROSTATE March 29, 2025 8:37a m PCI with stenting April 12, 2025 8:00a m PCI with stenting May 13, 2025 8:00 am PCI with stenting May 31, 2025 8:00 am RT LEG SWELLING AND PAIN June 05, 2025 1:45pm 3 M FU June 06, 2025 7:51 am EORDERS July 08, 2025 7: 51am Reason for Visit Admit Date History of prostate cancer March 29 8:37am Essential hypertension June 06, 2025 7 :51am Mixed hyperlipidemia June 06, 2025 7:5 1am Presence of stent in coronary artery May 7:51am Chief Complaint Admit Date PCI with stenting May 13, 2025 8:00 am PCI with stenting May 31, 2025 8:00 am RT LEG SWELLING AND PAIN June 05, 2025 1:45pm 3 M FU June 06, 2025 7:51 am EORDERS July 08, 2025 7: 51am SUBCUTANEOUS MASS OF RT LOWER LEG 2024 12:33pm Reason for Visit Admit Date Essential hypertension June 06, 2025 7 :51am Mixed hyperlipidemia June 06, 2025 7:5 1am Presence of stent in coronary artery May 7:51am Advance Directives No Advanced Directives Records Found Advance Directive Response Recorded Date/ Time Advance Directives Yes July 8:23am Living Will Yes August 11, 2021 11:22am Power of Workers Compensation Attorney Yes July 11:22am Advance Directive Response Recorded Date/ Time Advance Directives Yes July 7:23am Living Will Yes August 11, 2021 10:22am Power of Workers Compensation Attorney Yes Geovanna 28th , 2021 10:22am Advance Directive Response Recorded Date/ Time Advance Directives Yes July 8:23am Advance Directive Response Recorded Date/ Time Advance Directives on File Yes February 19, 2025 7:19am Living Will Yes February 19, 2025 7:19am Do you have a Healthcare Power of Workers Compensation Attorney? Yes February 19, 2025 7:19am Name of Medical Power of Workers Compensation Attorney rosamaria calvert February 19, 2025 7:19am Advance Directives Yes February 19 7:19am Advance Directive Response Recorded Date/ Time Advance Directives on File Yes February 27, 2025 8:22am Living Will Yes February 27, 2025 8:22am Do you have a Healthcare Power of Workers Compensation Attorney? Yes February 27, 2025 8:22am Advance Directives on File Yes February 19, 2025 7:19am Living Will Yes February 19, 2025 7:19am Do you have a Healthcare Power of Workers Compensation Attorney? Yes February 19, 2025 7:19am Name of Medical Power of Workers Compensation Attorney rosamaria calvert February 19, 2025 7:19am Advance Directives Yes February 19 7:19am Advance Directive Response Recorded Date/ Time Advance Directives Yes February 19 7:19am Summary [...] Wilson MD Primary Care Provider Active Mai GROSSMAN, [place] Referring Provider, Other Provider Active Dr. Michael Freeman MD Attending Provider Active Team Status: Inactive Member Role Status Dates Dr. Lawrence Wilson MD Primary Care Provider Active Mai GROSSMAN, PA Attending Provider, Referr ing Provider Active [...] 2025 End: March 01, 2025 Nessa Melissa COMMUNICATIONS TECHNOLOGIST, COMMUNICATIONS TECHNOLOGIST-C Attending Provider Active Start: March 01, 2025 [...] 05, 2025 End: February 05, 2025 Mai GROSSMAN PA Attending Provider Active Start: February 05, 2025 End: February 05, 2025 Team Status: Inactive Member Role/Relationship Status Dates Dr. Lawrence Wilson MD Primary Care Provider Active Start: February 06, 2025 End: February 06, 2025 Mai GROSSMAN, PA Attending Provider Active Start: February 06, [...] Active Member Role/Relationship Status Dates Dr. Lawrence iWlson MD Primary Care Provider Active Start: February [...] 2025 End: March 01, 2025 Nessa Melissa COMMUNICATIONS TECHNOLOGIST, COMMUNICATIONS TECHNOLOGIST-C Attending Provider Active Start: March 01, 2025 [...] May 13, 2025 End: May 13, 2025 Team Status: Inactive Member Role/Relationship Status Dates Dr. Lawrence Wilson MD Primary Care Provider Active Start: February 06, 2025 End: February 06, 2025 Mai GROSSMAN PA Attending Provider Active Start: February 06, 2025 End: February 06, 2025 Mai GROSSMAN PA Referring Provider Active Start: February 06, [...] 2025 End: March 01, 2025 Nessa Melissa COMMUNICATIONS TECHNOLOGIST, COMMUNICATIONS TECHNOLOGIST-C Attending Provider Active Start: March 01, 2025 [...] May 13, 2025 End: May 13, 2025 Team Status: Active Member Role/Relationship Status Dates Dr. Lawrence Wilson MD Primary Care Provider Active Start: May 31, 2025 Dr. Maged Watts MD Attending Provider Active Start: May 31, 2025 Dr. Maged Watts MD Referring Provider Active Start: May 31, 2025 Team Status: Active Member Role/Relationship Status Dates Dr. Lawrence Wilson MD Primary Care Provider Active Start: June 05, 2025 Dr. Lawrence Wilson MD Attending Provider Active Start: June 05, 2025 Dr. Lawrence Wilson MD Referring Provider Active Start: June 05, 2025 Team Status: Active Member Role/Relationship Status Dates Dr. Lawrence Wilson MD Primary Care Provider Active Start: June 05, 2025 Dr. Jony Sosa MD Attending Provider Active S tart: June 05, 2025 Team Status: Inactive Member Role/Relationship Status Dates Dr. Lawrence Wilson MD Primary Care Provider Active Start: June 06, 2025 End: June 06, 2025 Dr. Lawrence Wilson MD Referring Provider Active Start: June 06, 2025 End: June 06, 2025 Nessa Melissa NP, COMMUNICATIONS TECHNOLOGIST-C Attending Provider Active Start: June 06, 2025 End: June 06, 2025 Team Status: Inactive Member Role/Relationship [...] 2025 End: March 01, 2025 Nessa Melissa COMMUNICATIONS TECHNOLOGIST, COMMUNICATIONS TECHNOLOGIST-C Attending Provider Active Start: March 01, 2025 [...] 29, 2025 End: March 29, 2025 Dr. uTcker Perry DO Attending Provider Active Start: March [...] May 13, 2025 End: May 13, 2025 Team Status: Active Member Role/Relationship Status Dates Dr. Lawrence Wilson MD Primary Care Provider Active Start: May 31, 2025 Dr. Maged Watts MD Attending Provider Active Start: May 31, 2025 Dr. Maged Watts MD Referring Provider Active Start: May 31, 2025 Team Status: Inactive Member Role/Relationship Status Dates Dr. Lawrence Wilson MD Primary Care Provider Active Start: June 05, 2025 End: June 05, 2025 Dr. Lawrence Wilson MD Attending Provider Active Start: June 05, 2025 End: June 05, 2025 Dr. Lawrence Wilson MD Referring Provider Active Start: June 05, 2025 End: June 05, 2025 Team Status: Active Member Role/Relationship Status Dates Dr. Lawrence Wilson MD Primary Care Provider Active Start: June 05, 2025 Dr. Jony Sosa MD Attending Provider Active S tart: June 05, 2025 Team Status: Inactive Member Role/Relationship Status Dates Dr. Lawrence Wilson MD Primary Care Provider Active Start: June 06, 2025 End: June 06, 2025 Dr. Lawrence Wilson MD Referring Provider Active Start: June 06, 2025 End: June 06, 2025 Nessa Melissa NP, COMMUNICATIONS TECHNOLOGIST-C Attending Provider Active Start: June 06, 2025 End: June 06, 2025 Team Status: Inactive Member Role/Relationship Status Dates Dr. Lawrence Wilson MD Primary Care Provider Active Start: May 31, 2025 End: June 13, 2025 Dr. Maged Watts MD Attending Provider Active Start: May 31, 2025 End: June 13, 2025 Dr. Maged Watts MD Referring Provider Active Start: May 31, 2025 End: June 13, 2025 Team Status: Inactive Member Role/Relationship [...] May 13, 2025 End: May 13, 2025 Team Status: Inactive Member Role/Relationship Status Dates Dr. Lawrence Wilson MD Primary Care Provider Active Start: May 31, 2025 End: June 13, 2025 Dr. Maged Watts MD Attending Provider Active Start: May 31, 2025 End: June 13, 2025 Dr. Maged Watts MD Referring Provider Active Start: May 31, 2025 End: June 13, 2025 Team Status: Inactive Member Role/Relationship Status Dates Dr. Lawrence Wilson MD Primary Care Provider Active Start: June 05, 2025 End: June 05, 2025 Dr. Lawrence Wilson MD Attending Provider Active Start: June 05, 2025 End: June 05, 2025 Dr. Lawrence Wilson MD Referring Provider Active Start: June 05, 2025 End: June 05, 2025 Team Status: Active Member Role/Relationship Status Dates Dr. Lawrence Wilson MD Primary Care Provider Active Start: June 05, 2025 Dr. Lawrence Wilson MD Referring Provider Active Start: June 05, 2025 Dr. Jony Sosa MD Attending Provider Active S tart: June 05, 2025 Team Status: Inactive Member Role/Relationship Status Dates Dr. Lawrence Wilson MD Primary Care Provider Active Start: June 06, 2025 End: June 06, 2025 Dr. Lawrence Wilson MD Referring Provider Active Start: June 06, 2025 End: June 06, 2025 Nessa Melissa COMMUNICATIONS TECHNOLOGIST, COMMUNICATIONS TECHNOLOGIST-C Attending Provider Active Start: June 06, 2025 End: June 06, 2025 Team Status: Inactive Member Role/Relationship Status Dates Dr. Lawrence Wilson MD Primary Care Provider Active Start: July 08, 2025 End: July 08, 2025 Dr. Lawrence Wilson MD Attending Provider Active Start: July 08, 2025 End: July 08, 2025 Dr. Lawrence Wilson MD Referring Provider Active Start: July 08, 2025 End: July 08, 2025 Team Status: Active Member Role/Relationship Status Dates Dr. Lawrence Wilson MD Primary care physician Active Team Status: Inactive Member Role/Relationship Status Dates Dr. Lawrence Wilson MD Primary care physician Active Start: May 13, 2025 End: May 13, 2025 Dr. Maged Watts MD Attending physician Active Start: May 13, 2025 End: May 13, 2025 Dr. Maged Watts MD Referring Provider Active Start: May 13, 2025 End: May 13, 2025 Team Status: Inactive Member Role/Relationship Status Dates Dr. Lawrence Wilson MD Primary care physician Active Start: May 31, 2025 End: June 13, 2025 Dr. Maged Watts MD Attending physician Active Start: May 31, 2025 End: June 13, 2025 Dr. Maged Watts MD Referring Provider Active Start: May 31, 2025 End: June 13, 2025 Team Status: Inactive Member Role/Relationship Status Dates Dr. Lawrence Wilson MD Primary care physician Active Start: June 05, 2025 End: June 05, 2025 Dr. Lawrence Wilson MD Attending physician Active Start: June 05, 2025 End: June 05, 2025 Dr. Lawrence Wilson MD Referring Provider Active Start: June 05, 2025 End: June 05, 2025 Team Status: Active Member Role/Relationship Status Dates Dr. Lawrence Wilson MD Primary care physician Active Start: June 05, 2025 Dr. Lawrence Wilson MD Referring Provider Active Start: June 05, 2025 Dr. Jony Sosa MD Attending physician Active Start: June 05, 2025 Team Status: Inactive Member Role/Relationship Status Dates Dr. Lawrence Wilson MD Primary care physician Active Start: June 06, 2025 End: June 06, 2025 Dr. Lawrence Wilson MD Referring Provider Active Start: June 06, 2025 End: June 06, 2025 Nessa Melissa COMMUNICATIONS TECHNOLOGIST, COMMUNICATIONS TECHNOLOGIST-C Attending physician Active Start: June 06, 2025 End: June 06, 2025 Team Status: Inactive Member Role/Relationship Status Dates Dr. Lawrence Wilson MD Primary care physician Active Start: July 08, 2025 End: July 08, 2025 Dr. Lawrence Wilson MD Attending physician Active Start: July 08, 2025 End: July 08, 2025 Dr. Lawrence Wilson MD Referring Provider Active Start: July 08, 2025 End: July 08, 2025 Team Status: Inactive Member Role/Relationship Status Dates Dr. Lawrence Wilson MD Primary care physician Active Start: July 19, 2025 End: July 19, 2025 Dr. Lawrence Wilson MD Attending physician Active Start: July 19, 2025 End: July 19, 2025 Dr. Lawrence Wilson MD Referring Provider Active Start: July 19, 2025 End: July 19, 2025 (unrecognized sect ion and content) No Status Records Found INFORMATION SOURCE (unrecogn ized section and content) DATE CREATED AUTHOR 09/10/2025 [facility] FOR RECORDS PERTAINING TO PATIENTS WHO ARE [...] BE BASED ON THE PRIMARY CLINICAL RECORDS. [employer] [facility]. provides no warranty or guarantee of the accuracy or completeness of information in this document.
[2025-10-03 10:18] LABS: Hematocrit 39.6 % (40-54); Hemoglobin 13.0 g/dL (13.0-16.5); Immature Granulocytes Count 0.020 X10^3/uL (0.0-0.0); Mean Corp Hgb Conc 32.8 g/dL (32-36); Mean Corpuscular Volume 91.0 fL (80-94); Mean Platelet Vol. 10.2 fl (6.2-12.0); NRBC Flagged by Analyzer 0 % (0-5); Platelet Count 230 K/mm3 (150-450); RBC Distribution Width CV 13.7 % (11.6-14.6); RBC Distribution Width SD 46.4 fl (35.1-43.9); Red Blood Count 4.35 M/mm3 (4.6-6.2); White Blood Count 4.3 K/mm3 (4.4-11.0)
[2025-10-03 10:42] LABS: PSA,Total- Diagnostic 0.79 ng/mL (0.00-4.00)
[2025-10-03 10:51] LABS: AST(SGOT) 23 U/L (<=37); Alanine Aminotransfer ALT/SGPT 19 U/L (<=46); Albumin, Serum 4.2 g/dL (3.4-4.8); Alkaline Phosphatase 75 U/L (40-129); Anion Gap 10 (5-15); BUN 27 mg/dL (4-19); BUN/Creat Ratio 24.8 RATIO (10-20); Calcium,Total 9.2 mg/dL (7.6-11.0); Carbon Dioxide 25.0 mmol/L (21.0-32.0); Chloride 105 mmol/L (98-108); Cholesterol 232 mg/dL (<=200); Globulin 3.0 g/dL (2.2-4.2); Glucose 96 mg/dL (70-99); Low Density Lipoprotein Calc. 159 mg/dL; Potassium 4.6 mmol/L (3.3-5.1); Triglycerides 135 mg/dL; Very Low Density Lipoprotein 27 mg/dL (5-40); cholesterol:hdl ratio screen 4.81
== END | disposition home or self-care (01) ==
PROVIDERS: PCP Family Medicine; Referring Provider Student in an Organized Health Care Education/Training Program; Visit Provider Student in an Organized Health Care Education/Training Program
DX: E78.5 Hyperlipidemia, unspecified (principal); Z85.46 Personal history of malignant neoplasm of prostate
CPT/HCPCS: 36415; 80053; 80061; 84153; 85025